=== PATIENT | female | born 1940 | race Caucasian/White ===

== ENCOUNTER 2017-07-15 09:45 | Emergency (ER) | payer BC, SELFPAY ==
[2017-07-15 09:46] VITALS: BP 125/61; PULSE 84; RESP 14; TEMP 36.9; O2SAT 96; BMI 24.5
[2017-07-15 10:19] LABS: Absolute Neutrophil Count 4.1 X10^3/uL (2.0-7.7); Differential Indicated SCAN CRITERIA MET; Eosinophil# 0.36 X10^3/uL; Eosinophils% 6.9 % (0-5); Hematocrit 35.5 % (37-47); Hemoglobin 11.1 g/dl (12.0-15.0); Lymphocyte % 7.7 % (19-41); Mean Corp Hgb Conc 31.3 g/gl (32-36); Mean Corpuscular Hgb 29.8 pg (27.0-32.0); Mean Corpuscular Volume 95.2 fL (81-99); Mean Platelet Vol. 9.3 fl (6.2-12.0); Monocyte# 0.29 X10^3/uL; Monocyte% 5.6 % (0-10); Neutrophil # 4.13 X10^3/uL (2.7-7.7); Neutrophil % 79.8 % (47-70); POSITIVE COUNT NO; POSITIVE DIFFERENTIAL YES; POSITIVE MORPHOLOGY NO; Platelet Count 212 K/mm3 (150-450); RBC Distribution Width CV 14.2 % (11.6-14.6); RBC Distribution Width SD 48.8 fl (35.1-43.9); Red Blood Count 3.73 M/mm3 (4.2-5.4); White Blood Count 5.2 K/mm3 (4.4-11.0)
[2017-07-15 10:24] LABS: Anion Gap 9 (5-15); BUN 20 mg/dL (7-18); Calcium,Total 8.6 mg/dL (8.5-10.1); Chloride 103 mmol/L (98-107); Creatinine, Serum 0.53 mg/dL (0.55-1.02); EST Glomerular Filtration Rate 120 mL/min (>60); Est Glom Filt Rate - Afr Amer 146 mL/min (>60); Estimated Creatinine Clearance 43.07 ml/min; Glucose 100 mg/dL (70-110); Potassium 3.7 mmol/L (3.5-5.1); Sodium Level 136 mmol/L (136-145)
[2017-07-15 10:28] LABS: Differential Comment SCANNED
[2017-07-15 10:32] VITALS: BP 114/52; BP 116/50; BP 119/52; PULSE 76; PULSE 77; PULSE 83
[2017-07-15] MEDS: 0.9% Normal Saline 1,000 ML 1000 ML IV (10:34)
--- NOTE | 2017-07-15 10:42 | ED.VISSUMM ---
- ER Visit Summary Date of Service: 07/15/17 Chief Complaint: [Diarrhea] History of Present Illness: The patient is a 77 F [presents to the emergency department with symptoms of diarrhea that started this morning around 7 AM. Patient states she has had 3-4 watery stools. Patient is from [facility]. Patient denies any abdominal pain or blood in her stool. Patient has not been on antibiotics recently. She denies recent travel. Patient was concerned because she had breast cancer with left mastectomy and had chemotherapy 3 months ago. Patient has a history of hypothyroidism and history of atrial fibrillation however she is not currently on a blood thinner. Patient denies any fevers. She was told at the [facility] that her temperature was 99.2 and it was normal on arrival in the emergency department.] Physical Examination: [HEENT-PERRLA, EOMI. Cranial nerves II through XII grossly intact. TMs clear. Mucous membranes moist. No adenopathy. Cardiovascular-regular rate and rhythm without murmur or ectopy Lungs-clear to auscultation, chest wall stable without crepitus or subcu emphysema Abdomen-normoactive bowel sounds, soft, nontender, no rebound or rigidity, no peritoneal signs. Extremities-intact ?4, normal range of motion, normal pulses, atraumatic] Test Results: [CBC with differential obtained showed a white blood cell count 5.2, hemoglobin 11, hematocrit 35, platelets 212. Chemistries were normal. Orthostatic vital signs were negative. Stool was ordered for C. difficile and enteric pathogens however patient was unable to produce a sample here.] Emergency Department Course and Treatment: [Patient was given a liter normal saline fluid bolus.] Treatment Plan: [I discussed case with Dr. Kc who was covering for Dr. Ky Burkett at the request of the patient. I will also attempt to contact patient's primary care physician to discuss. I feel patient can be safely discharged back to the [facility] living facility. I will write her an outpatient order form to bring in a stool sample for C. difficile and enteric pathogens. Patient will be given a prescription for Imodium.] Disposition: [Discharged to home in stable condition] Impression: [Diarrhea] This note was generated with Promisecation software. It may contain incorrect words, spelling, and punctuation that were not noted in review of the chart prior to signing ED Disposition - Plan for ED Patient: Chief Complaint: Diarrhea Referrals: Tayla Espinal DO [Primary Care Provider] -
--- NOTE | 2017-07-15 10:45 | ED.DCSUM_ITS ---
- ER Visit Summary Date of Service: 07/15/17 Chief Complaint: [Diarrhea] History of Present Illness: The patient is a 77 F [presents to the emergency department with symptoms of diarrhea that started this morning around 7 AM. Patient states she has had 3-4 watery stools. Patient is from [facility]. Patient denies any abdominal pain or blood in her stool. Patient has not been on antibiotics recently. She denies recent travel. Patient was concerned because she had breast cancer with left mastectomy and had chemotherapy 3 months ago. Patient has a history of hypothyroidism and history of atrial fibrillation however she is not currently on a blood thinner. Patient denies any fevers. She was told at the [facility] that her temperature was 99.2 and it was normal on arrival in the emergency department.] Physical Examination: [HEENT-PERRLA, EOMI. Cranial nerves II through XII grossly intact. TMs clear. Mucous membranes moist. No adenopathy. Cardiovascular-regular rate and rhythm without murmur or ectopy Lungs-clear to auscultation, chest wall stable without crepitus or subcu emphysema Abdomen-normoactive bowel sounds, soft, nontender, no rebound or rigidity, no peritoneal signs. Extremities-intact ?4, normal range of motion, normal pulses, atraumatic] Test Results: [CBC with differential obtained showed a white blood cell count 5.2, hemoglobin 11, hematocrit 35, platelets 212. Chemistries were normal. Orthostatic vital signs were negative. Stool was ordered for C. difficile and enteric pathogens however patient was unable to produce a sample here.] Emergency Department Course and Treatment: [Patient was given a liter normal saline fluid bolus.] Treatment Plan: [I discussed case with Dr. Kc who was covering for Dr. Ky Burkett at the request of the patient. I will also attempt to contact patient's primary care physician to discuss. I feel patient can be safely discharged back to the [facility] living facility. I will write her an outpatient order form to bring in a stool sample for C. difficile and enteric pathogens. Patient will be given a prescription for Imodium.] Disposition: [Discharged to home in stable condition] Impression: [Diarrhea] This note was generated with Meridian-IQation software. It may contain incorrect words, spelling, and punctuation that were not noted in review of the chart prior to signing ED Disposition - Plan for ED Patient: Chief Complaint: Diarrhea Referrals: Tayla Espinal DO [Primary Care Provider] -
--- NOTE | 2017-07-15 10:45 | ED.DEP ---
ED Disposition - Plan for ED Patient: Chief Complaint: Diarrhea Instructions: ED Gastroenteritis Report Pend Prescriptions: Loperamide HCl [Imodium A-D] 2 mg PO 4X/DAY PRN PRN #30 tab PRN Reason: Diarrhea Referrals: Tayla Espinal DO [Primary Care Provider] - 3-5 Days
[2017-07-15 12:08] VITALS: BP 105/66; PULSE 72; RESP 16; O2SAT 100
--- NOTE | 2017-07-15 12:09 | ED.RN ---
stool sample sent.
== END 2017-07-15 12:10 | disposition home or self-care (01) ==
LOC: ED 10:14
PROVIDERS: Emergency Provider Emergency Medicine; Family Provider Internal Medicine; PCP Internal Medicine
DX: R19.7 Diarrhea, unspecified (principal); E03.9 Hypothyroidism, unspecified; Z85.3 Personal history of malignant neoplasm of breast; Z79.899 Other long term (current) drug therapy
CPT/HCPCS: 80048; 85025; 87493; 87506; 96360; 96361; 99285; J7030

== ENCOUNTER → 2017-07-31 11:23 | Outpatient (CLI) | payer BC, SELFPAY ==
--- NOTE | 2017-07-31 11:39 | MRI_ITS ---
STUDY: MRI BRAIN WITH AND WITHOUT CONTRAST REASON FOR EXAM: Female, 77 years old. The patient is status post recent mastectomy with known metastatic disease, complaining of right-sided weakness x12 days. TECHNIQUE: Standardized multiplanar fat and water weighted pulse sequences were obtained. 7 ml of Gadavist contrast material was administered intravenously for the contrast portion of the examination. COMPARISON: None. FINDINGS: There is an enhancing intraparenchymal mass lesion within the posterior left frontal lobe measuring 11 x 15 x 13 mm (AP x transverse x craniocaudal). There is extensive surrounding vasogenic edema extending to the cortical ritter-white matter junctions into the posterior lateral horn of the left lateral ventricle. There is mild mass effect with inferior displacement of the left lateral ventricle and with a 3 mm doxa-[id number]-[id number] shift of the septum pellucidum (coronal T2 series 10, image 14). The white matter edema extends to the precentral gyrus of the left frontal lobe (axial T2 series 6, image 20). There are no additional enhancing intracranial lesions. 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 There are a limited number of small white matter hyperintensities, distributed throughout the deep white matter tracts of the cerebral hemispheres, consistent with mild chronic white matter ischemic changes. There is no evidence for recent intracranial ischemia or other cause of cytotoxic edema on diffusion weighted imaging (DWI). Normal T2* images of the brain without demonstrated susceptibility artifact. There is no demonstrated hemosiderin stain. Normal bilateral basal ganglia. Normal thalami. There is no extra-axial fluid accumulation. Normal flow voids within the major intracranial circulation suggesting patency by spin echo criteria. Normal venous enhancement. Normal sella turcica, pituitary gland, infundibular stalk, optic chiasm and hypothalamus. Normal tectal plate and pineal gland. There are chronic white matter ischemic changes of the thong. The midbrain and medulla are otherwise normal. Normal cerebellum. Normal basal cisterns. Normal bilateral temporal bones. Normal bilateral internal auditory canals. 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 Normal visualized paranasal sinuses. Normal calvarium and skull base. Normal visualized soft tissue structures. Normal visualized upper cervical spine. MRI/Brain W/WO Contrast IMPRESSION: 1. 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 2. Mild chronic white matter ischemic changes of the supratentorial brain and thong. 3. 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 4. No acute or evolving ischemic process. Electronically Signed: Glenn Taylor DO at 13:48 EST Tel , Service support ,
--- NOTE | 2017-07-31 16:11 | CHAPLAIN ---
Type of Pastoral Visit ___ Initial Visit ___ Follow-up Visit ___ On-call Visit ___ General Patient Visit ___ Spiritual Assessment ___ Family Conference ___ Bereavement ___ Rapid Response ___ Code Blue _x__ Other (describe below) Pastoral Care Referral From _x__ Patient ___ Family ___ Nurse ___ Physician ___ Forklift Technician ___ Merchant Tailor _x__ Other (describe below) Sacrament/Intervention _x__ Active listening ___ Anointing ___ Caodaism ___ Bereavement ___ Communion ___ Mayra exploration ___ ___ Life review _x__ Prayer ___ Reconciliation ___ Sacrament of Sick _x__ Supportive presence ___ Wedding ___ Other (describe below) Pastoral Comments Slot Shift Supervisor called upon this craft demonstrator to give support for patient; pt was in cafeteria and had expressed anxiety due to urgent decision of DR to do an MRI; pt has had cancer and she is fearful about possibility of cancer spreading; pt is anxious about going through the MRI machine and would like support and prayer; took pt to MRI waiting room where we talked and had prayer; pt has family members that will be with her during this time
== END ==
PROVIDERS: Family Provider Internal Medicine; PCP Internal Medicine; Visit Provider Internal Medicine Hematology & Oncology
DX: C50.812 Malignant neoplasm of overlapping sites of left female breast (principal); Z17.0 Estrogen receptor positive status [ER+]; C78.01 Secondary malignant neoplasm of right lung; G81.91 Hemiplegia, unspecified affecting right dominant side; R22.0 Localized swelling, mass and lump, head
CPT/HCPCS: 70553; A9585

== ENCOUNTER 2017-09-08 13:10 | Observation (INO) | payer BC, SELFPAY ==
[2017-09-08] VITALS (8 sets, daily range): BP systolic 121–144; BP diastolic 50–96; PULSE 91–117; RESP 14–22; TEMP 36.6–37.8; O2SAT 93–98; BMI 25.1; BMI 25.2; BMI 24.7
--- NOTE | 2017-09-08 13:48 | NURSING ---
SISTER CALLED AND NOTIFIED OF PATIENTS ARRIVAL. SISTER REQUESTED A CALL BACK WHEN INTERPRETATION WAS MADE OF D/C OR ADMISSION. ALISTAIR [phone].
--- NOTE | 2017-09-08 14:11 | CT_ITS ---
STUDY: CT ABDOMEN AND PELVIS WITH CONTRAST REASON FOR EXAM: Female, 77 years old. N/V, WEAKNESS, VOMITTING, HX LT BREAST CA RADIATION DOSAGE (If Supplied By Facility): CTDIvol = ( 11.80 ) mGy, DLP = ( 728.53 ) mGycm TECHNIQUE: Transaxial images were obtained from the dome of the diaphragm to the symphysis pubis without oral contrast. 100 ml of Isovue 300 contrast was administered. Sagittal and coronal images were reconstructed. Individualized dose optimization techniques were used for this CT. COMPARISON: None. FINDINGS: The visualized lung bases demonstrate subsegmental atelectasis. The visualized portions of the heart are within normal limits. Multiple decrease attenuation lesions are seen in the liver the largest is in segment #7 measures 1 cm are consistent with benign cysts. Normal gallbladder and extrahepatic biliary system. Normal spleen. Normal pancreas. Normal bilateral adrenal glands. Normal right kidney. Normal left kidney. There is a small hiatal hernia. Normal small intestine. Normal colon. There is non-visualization of the appendix. Normal abdominal aorta. Normal inferior vena cava. Normal retroperitoneum. Normal urinary bladder. Normal abdominal wall. There are diffuse degenerative changes and demineralization of the visualized lumbar spine. CT/Abdomen/Pelvis W IV Cont ONLY IMPRESSION: Multiple decrease attenuation lesions are seen in the liver the largest is in segment #7 measures 1 cm are consistent with benign cysts. Electronically Signed: Terence Calero MD at 15:42 EDT Tel , Service support ,
--- NOTE | 2017-09-08 14:11 | EKG12_ITS ---
Test Reason : VOMITING Blood Pressure : / mmHG Vent. Rate : 087 BPM Atrial Rate : 087 BPM P-R Int : 146 ms QRS Dur : 098 ms QT Int : 372 ms P-R-T Axes : 023 -34 032 degrees QTc Int : 447 ms Normal sinus rhythm Left axis deviation Voltage criteria for left ventricular hypertrophy Abnormal ECG Confirmed by FANI ESTEBAN, RAQUEL ([id number]), social media editor DANIELLE STAHL ([id number]) on 09/12/2017 1:38:18 PM Referred By: MEJIA Confirmed By:RAQUEL MOHR MD
--- NOTE | 2017-09-08 14:20 | NURSING ---
NO LW OR POA
[2017-09-08] MEDS: 0.9% Normal Saline 1,000 ML 125 ML IV (14:23)
[2017-09-08] MEDS: Ondansetron 4 MG/2 ML Vial IV (14:23)
[2017-09-08 14:35] LABS: Absolute Lymphocyte Count 0.49 X10^3/ul (0.83-4.51); Absolute Neutrophil Count 2.1 X10^3/uL (2.0-7.7); Basophil# 0.03 X10^3/uL; Differential Indicated SCAN CRITERIA MET; Eosinophil# 0.01 X10^3/uL; Eosinophils% 0.3 % (0-5); Hematocrit 38.5 % (37-47); Hemoglobin 12.7 g/dl (12.0-15.0); Lymphocyte # 0.49 X10^3/ul (4.0); Lymphocyte % 17.1 % (19-41); Mean Corpuscular Hgb 29.5 pg (27.0-32.0); Mean Corpuscular Volume 89.3 fL (81-99); Mean Platelet Vol. 9.2 fl (6.2-12.0); Monocyte# 0.22 X10^3/uL; Monocyte% 7.7 % (0-10); Neutrophil % 73.6 % (47-70); POSITIVE COUNT NO; POSITIVE DIFFERENTIAL YES; POSITIVE MORPHOLOGY NO; Platelet Count 150 K/mm3 (150-450); RBC Distribution Width SD 48.7 fl (35.1-43.9); Red Blood Count 4.31 M/mm3 (4.2-5.4); White Blood Count 2.9 K/mm3 (4.4-11.0)
--- NOTE | 2017-09-08 14:48 | NURSING ---
PT EXPRESSED CONCERNS ABOUT SELF CARE IF D/C. BUSINESS DEVELOPMENT ASSOCIATE CONSULTED AND IS SPEAKING TO THE PATIENT.
[2017-09-08 14:51] LABS: ALB/GLOB Ratio 0.9 RATIO (0.9-2.4); AST(SGOT) 42 U/L (15-37); Alanine Aminotransfer ALT/SGPT 88 U/L (13-56); Albumin, Serum 3.1 g/dL (3.2-5.0); Alkaline Phosphatase 95 U/L (45-117); Anion Gap 5 (5-15); BUN 14 mg/dL (7-18); BUN/Creat Ratio 26.1 RATIO (10-20); Calcium,Total 9.2 mg/dL (8.5-10.1); Chloride 102 mmol/L (98-107); Creatinine, Serum 0.54 mg/dL (0.55-1.02); EST Glomerular Filtration Rate 117 mL/min (>60); Est Glom Filt Rate - Afr Amer 142 mL/min (>60); Estimated Creatinine Clearance 39.59 ml/min; Globulin 3.3 g/dL (2.2-4.2); Glucose 106 mg/dL (74-106); Lipase 389 U/L (73-393); Potassium 3.6 mmol/L (3.5-5.1); Protein, Total 6.4 g/dL (6.4-8.2); Sodium Level 138 mmol/L (136-145)
--- NOTE | 2017-09-08 14:54 | CM.ED ---
Addendum entered by Adilene Stauffer 09/08/17 17:21: Martha called back and states she is not able to provide care for patient at home, this weekend, and does not have any available referral. Original Note: ED CM Assessment: Patient states she is concerned to go home and be alone tonight. Patient states she gets lonely and cries due to depression, when she is alone. Patient states she has a private-pay STUDIO SET UP WORKER, named Martha, who provides assistance with bathing and groceries. Martha is unable to be with patient again until Monday. Patient states she has sisters who live in [facility], but that they are unable to come down to be with her. Her brother is on a cruise. Patient states she was diagnosed with breast cancer in December. Patient states she ambulates without assistance and does still drive. She attends physical therapy at [facility]. I discussed [facility] with the patient and she was eager to hear more. Call placed to director, Nick, who states he will call the patient Monday of next week. Patient was informed and given a brochure for behavioral health. She is agreeable with this plan. Call placed to Martha, private STUDIO SET UP WORKER, to inquire if she has any referral sources who could stay with the patient through the weekend. Voicemail left for Martha and awaiting return call. I did inform the patient of this and that I may not hear back from her. Patient verbalizes appreciation of this. Care team updated.
[2017-09-08] MEDS: proMETHazine 25 MG/ML Syringe 6.25 MG IV (15:38)
[2017-09-08 15:59] LABS: Bacteria 0 SEEN /hpf (None Seen); Mucous, Urine 0 SEEN /hpf (<or=2+); Red Blood Cells-Urine 0 SEEN /hpf (0-5); White Blood Cells 0 SEEN /hpf (0-5)
[2017-09-08 16:01] LABS: Color, Urine Straw (Yellow); Glucose, Dipstick Normal (Normal); Ketone-Dipstick Negative (Negative); Leukocyte Esterase-Dipstick Negative /ul (Negative); Nitrite-Dipstick Negative (Negative); Occult Blood-Urine Negative /ul (Negative); Protein-Dipstick Negative (Negative); Urine Bilirubin Dipstick Negative (Negative); Urine Clarity Clear (Clear); Urine Urobilinogen Normal (Normal)
[2017-09-08 16:16] LABS: Squamous Epithelial Cells - UA 0-5 SEEN /hpf (5-10); Transitional Epithelial - Ur 0-5 SEEN /hpf (0-5)
--- NOTE | 2017-09-08 16:27 | CT_ITS ---
STUDY: CT BRAIN WITHOUT CONTRAST REASON FOR EXAM: Female, 77 years old. Alteration of awareness RADIATION DOSAGE (If Supplied By Facility): CTDIvol = ( 44.99 ) mGy, DLP = ( 796.11 ) mGycm TECHNIQUE: Transaxial CT imaging of the brain was performed without administration of intravenous contrast material. Individualized dose optimization techniques were used for this CT. COMPARISON: Brain MRI dated July 31, 2017 FINDINGS: The soft tissues are unremarkable. The osseous structures are unremarkable. Normal size ventricles and extra-axial spaces for the patient's age. The white matter tracts are unremarkable. The basal ganglia and thalami are unremarkable. No abnormalities are seen in the brainstem. The cerebellum is unremarkable. There is subtle hypodensity in the left frontal lobe. There is no intracranial hemorrhage. There are no findings of acute ischemia. The visualized sinuses are unremarkable. CT/Brain/Head without Contrast IMPRESSION: No acute intracranial abnormalities. There is no acute hemorrhage. There is subtle hypodensity in the left frontal lobe corresponding in location to the known metastatic lesion seen on the prior MRI. Electronically Signed: Nasrin Orta MD at 17:11 EDT Tel Direct: [phone], Service support ,
--- NOTE | 2017-09-08 16:30 | ED.VISSUMM ---
- ER Visit Summary Date of Service: 09/08/17 Chief Complaint: Nausea and vomiting History of Present Illness: The patient is a 77 F with nausea and vomiting that started yesterday. She also feels tired. She does not have any abdominal pain. She is having normal bowel movements. Denies fever or urinary symptoms. Denies anything like this in the past. She has a history of breast cancer. Her last chemotherapy treatment was in April. She had a mastectomy in June and no issues since then. Physical Examination: Vital signs unremarkable. Patient alert and oriented. No acute distress. She has a depressed mood and flat affect. Heart regular. Lungs clear. Abdomen soft and nontender. No masses or distention. Skin appears normal in color without jaundice or pallor. Test Results: EKG shows sinus rhythm at a rate of 87. No acute changes, infarction, or ischemia. White count 2.9. Liver enzymes slightly elevated. Lipase normal. Urinalysis normal. Troponin normal. CT shows liver lesions which are likely benign cysts. No visualization of the appendix. Emergency Department Course and Treatment: Patient received fluids and nausea medicine. I reassessed her and wanted to talk to her about her results. The patient was laying naked in the bed and pulling out her IV. She thought it was 1972. She was clearly delirious. I was able to redirect her and make her more comfortable by sitting her up in bed. We will check a head CT and a chest x-ray. The patient will need hospitalization. Results are still pending. The oncoming doctor will check. Treatment Plan: As above Disposition: Admission Impression: 1. Nausea and vomiting 2. Delirium This note was generated with Crystal Clear Vision dictation software. It may contain incorrect words, spelling, and punctuation that were not noted in review of the chart prior to signing ED Disposition - Plan for ED Patient: Chief Complaint: Nausea/Vomiting Referrals: Tayla Espinal DO [Primary Care Provider] -
--- NOTE | 2017-09-08 16:37 | ED.DCSUM_ITS ---
- ER Visit Summary Date of Service: 09/08/17 Chief Complaint: Nausea and vomiting History of Present Illness: The patient is a 77 F with nausea and vomiting that started yesterday. She also feels tired. She does not have any abdominal pain. She is having normal bowel movements. Denies fever or urinary symptoms. Denies anything like this in the past. She has a history of breast cancer. Her last chemotherapy treatment was in April. She had a mastectomy in June and no issues since then. Physical Examination: Vital signs unremarkable. Patient alert and oriented. No acute distress. She has a depressed mood and flat affect. Heart regular. Lungs clear. Abdomen soft and nontender. No masses or distention. Skin appears normal in color without jaundice or pallor. Test Results: EKG shows sinus rhythm at a rate of 87. No acute changes, infarction, or ischemia. White count 2.9. Liver enzymes slightly elevated. Lipase normal. Urinalysis normal. Troponin normal. CT shows liver lesions which are likely benign cysts. No visualization of the appendix. Emergency Department Course and Treatment: Patient received fluids and nausea medicine. I reassessed her and wanted to talk to her about her results. The patient was laying naked in the bed and pulling out her IV. She thought it was 1972. She was clearly delirious. I was able to redirect her and make her more comfortable by sitting her up in bed. We will check a head CT and a chest x- ray. The patient will need hospitalization. Results are still pending. The oncoming doctor will check. Treatment Plan: As above Disposition: Admission Impression: 1. Nausea and vomiting 2. Delirium This note was generated with Navmii dictation software. It may contain incorrect words, spelling, and punctuation that were not noted in review of the chart prior to signing ED Disposition - Plan for ED Patient: Chief Complaint: Nausea/Vomiting Referrals: Tayla Espinal DO [Primary Care Provider] -
--- NOTE | 2017-09-08 16:40 | RAD_ITS ---
STUDY: X-RAY CHEST REASON FOR EXAM: Female, 77 years old. Alteration of awareness TECHNIQUE: A single frontal view of the chest was obtained. COMPARISON: Chest CT dated January 10, 2017 FINDINGS: The lungs are underaerated. There are minimal increased markings in both lung bases. There is no demonstrated pleural abnormality. The cardiac silhouette is normal in size. The mediastinum and hilar regions are unremarkable. Normal visualized pulmonary arteries. There is atherosclerotic tortuosity of the thoracic aorta. There are diffuse degenerative changes of the visualized spine. The visualized ribs, clavicles, and shoulders are unremarkable. There are surgical clips in the left axilla. RAD/Chest 1 View (Portable) IMPRESSION: No acute cardiopulmonary abnormalities. There is minimal bibasilar atelectasis. Electronically Signed: Nasrin Orta MD at 17:17 EDT Tel Direct: [phone], Service support ,
--- NOTE | 2017-09-08 16:46 | NURSING ---
DR HERMINIA BA
--- NOTE | 2017-09-08 16:58 | ED.RN ---
PT BEGAN PRESENTING WITH ACUTE CONFUSION. ALERT TO SELF AND INTERMITTENTLY PLACE, UNSURE OF MONTH OR YEAR. PT INCONTINENT OF URINE x2, FOUND UP WALKING IN [place] LIFTING GOWN, UNSURE OF SURROUNDINGS. POOR SHORT TERM MEMORY. ADVISED DR BA, CT SCAN OF BRAIN ORDERED.
--- NOTE | 2017-09-08 18:07 | PCM.HP.STD ---
Problem List (1) Gastroenteritis Status: Acute (2) Medication adverse effect Status: Acute (3) Status post gamma knife treatment Status: Chronic Comment: 08/14/2017 (4) History of modified radical mastectomy of left breast Status: Chronic Comment: 06/22/2017 (5) Left breast mass Status: Chronic (6) Hypothyroidism Status: Chronic (7) History of atrial fibrillation Status: Chronic History of Present Illness Date of Admission: 09/08/17 Chief Complaint: vomiting and diarrhea The patient is a 77 year old F who presented to the ER with nausea vomiting and diarrhea. She was given zofran and phenergan and became very confused. She is resting in bed in no acute distress but is answering some questions inappropriately. She cannot get the day, date, or month right, but knows where she is and why. She thinks she was brought here yesterday by a friend. She knows she came here because she has had many episodes of vomiting and diarrhea. 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 She is a patient of Dr. Burkett and had surgery in June and last chemo in April. She lives at home by herself. She has no abdominal pain. Hx is limited as the patient is confused and answers some questions completely inappropriately and others seemingly fine. [] Past Medical History Past Medical History (Chronic Problems): Chronic Problems (Last Reviewed 08/23/17 @ 10:28 by Sharon Jaramillo) Status post gamma knife treatment (Chronic) 08/14/2017 History of modified radical mastectomy of left breast (Chronic) 06/22/2017 Left breast mass (Chronic) Hypothyroidism (Chronic) History of pericardial effusion (Chronic) Status post pericardiocentesis. History of viral pericarditis (Chronic) History of atrial fibrillation (Chronic) Allergies shellfish derived Allergy (Verified 09/08/17 13:13) Hives tetracycline [Tetracycline] Allergy (Verified 09/08/17 17:11) pt unsure alcohol Adverse Reaction (Verified 09/08/17 13:13) Unknown Home Medications: Ambulatory Orders Medication Instructions Recorded Lorazepam [Ativan] 0.25 mg PO TID PRN PRN 07/14/13 Metoprolol Tartrate [Lopressor 50 mg PO BIDCM 07/14/13 (beta mike)] Levothyroxine [Synthroid] 125 mcg PO DAILY 06/15/17 Ondansetron [Zofran Odt] 8 mg PO Q8H PRN PRN 07/15/17 Acetaminophen [Tylenol Tablet] 325 mg PO Q6H PRN PRN 09/08/17 Surgical History: - - History of pericardiocentesis, left mastectomy, gamma knife Psychiatric History: Anxiety 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 ASSISTANT FOOD SERVICE MANAGER history Lives: Alone Smoking Status: Former smoker Tobacco Use: Non-smoker Alcohol: None Drugs: None - *Family History Maternal History Items: No pertinent history Paternal History Items: No pertinent history Review of Systems Unable to obtain accurate/complete ROS d/t: patient confused VTE Information - Inpt Only VTE Present on Admission: No VTE Mechan Device Prophylaxis: SCD's VTE Pharm Prophylaxis ordered?: Yes Patient Problems: Active and Suspected Problems (Last Reviewed 08/23/17 @ 10:28 by Sharon Jaramillo) Gastroenteritis (Acute) Medication adverse effect (Acute) - Physical Exam General: Alert, Oriented x3, Cooperative HEENT: Atraumatic, PERRLA, EOMI, Normocephalic Neck: Supple, No JVD, Negative Carotid Bruits Lungs: Clear to auscultation, Normal air movement Cardiovascular: Regular rate, No murmurs Abdomen: Bowel Sounds Present, Soft, Non Tender Extremities: No edema, Capillary Refill Less than 3 Seconds Skin: No rashes, No breakdown Musculoskeletal: No Tenderness to Palpation of Joints or Extremities Neurological: Cranial nerves II-XII grossly intact Psych/Mental Status: Normal Affect, Appropriate Vital Signs Temp Pulse Resp BP Pulse Ox 97.8 F 112 H 16 144/61 H 93 09/08/17 13:11 09/08/17 17:15 09/08/17 17:15 09/08/17 17:15 09/08/17 17:15 Oxygen Delivery Method Room Air Weight: 64.41 kg Body Mass Index (BMI) 25.1 Laboratory Tests Past 24 Hrs 09/08/17 09/08/17 09/08/17 14:20 14:20 15:50 WBC 2.9 L RBC 4.31 Hgb 12.7 Hct 38.5 MCV 89.3 MCH 29.5 MCHC 33.0 RDW 15.0 H RDW Differential 48.7 H Plt Count 150 MPV 9.2 Immature Gran % (Auto) 0.300 Neut % (Auto) 73.6 H Lymph % (Auto) 17.1 L [place] % (Auto) 7.7 Eos % (Auto) 0.3 Baso % (Auto) 1.0 Absolute Neuts (auto) 2.1 Absolute Lymphs (auto) 0.49 L Total Counted Not Reportable Diff Path Review October Sodium 138 Potassium 3.6 Chloride 102 Carbon Dioxide 31.0 Anion Gap 5 BUN 14 Creatinine 0.54 L Estim Creat Clear Calc 39.59 Est GFR (MDRD) Af Amer 142 Est GFR (MDRD) Non-Af 117 BUN/Creatinine Ratio 26.1 H Glucose 106 Calcium 9.2 Total Bilirubin 0.40 AST 42 H ALT 88 H Alkaline Phosphatase 95 Troponin I < 0.02 Total Protein 6.4 Albumin 3.1 L Globulin 3.3 Albumin/Globulin Ratio 0.9 Lipase 389 Urine Color Straw Urine Clarity Clear Urine pH 7.0 Ur Specific [place] 1.010 Urine Protein Negative Urine Glucose (UA) Normal Urine Ketones Negative Urine Occult Blood Negative Urine Nitrite Negative Urine Bilirubin Negative Urine Urobilinogen Normal Ur Leukocyte Esterase Negative Urine RBC 0 SEEN Urine WBC 0 SEEN Ur Squamous Epith Cells 0-5 SEEN Ur Transition Epith Cell 0-5 SEEN Urine Bacteria 0 SEEN Urine Mucus 0 SEEN Assessment/Plan Active and Suspected Problems (Last Reviewed 08/23/17 @ 10:28 by Sharon Jaramillo) Gastroenteritis (Acute) Medication adverse effect (Acute) 1. Acute gastroenteritis - suspect viral - continue supportive care with IV fluids and PRN medications, avoid phenergan as it likely triggered the confusion. Unlikely to have been zofran as she takes that at home. She has a low WBC count, and she is afebrile.Lipase neg. Trop neg. AST ALT somewhat high. T bili normal. CT abdomen pelvis with benign liver cysts. She had gastroenteritis in June and was positive for norovirus at that time. CXR neg. 2. Adverse medication reaction - confusion - likely 2/2 phenergan. As she had a hx of brain mets if she remains confused tomorrow may need to have an MRI of the brain to look for new mets. CT brain shows hypodensity c/w prior known metastatic lesion on prior MRI. 3. Hx left breast cancer with brain mets - Pt of Dr. Burkett, s/p left radical mastectomy June, chemo last April. 4. Hx AF - in NSR. On metoprolol. She missed her metoprolol today. 5. Hypothyroidism - continue synthroid. DVT ppx: lovenox This patient was seen by Andrew Baugh PA-C under the supervision of Doctor Mcgowan.
--- NOTE | 2017-09-08 18:16 | NURSING ---
206 OBS ENCEPHALOPATHY TERELETSKY
[2017-09-08] MEDS: Acetaminophen 325 MG Tablet PO (21:08)
[2017-09-09] VITALS (9 sets, daily range): BP systolic 114–127; BP diastolic 47–61; PULSE 71–93; RESP 16–18; TEMP 36.8–37.4; O2SAT 95–98
[2017-09-09] MEDS: 0.9% Normal Saline 1,000 ML 125 ML IV ×2 (01:36→09:18)
[2017-09-09] MEDS: Levothyroxine 125 MCG Tablet PO (05:22)
[2017-09-09 06:31] LABS: Absolute Lymphocyte Count 1.01 X10^3/ul (0.83-4.51); Absolute Neutrophil Count 1.5 X10^3/uL (2.0-7.7); Basophil# 0.01 X10^3/uL; Basophil% 0.3 % (0-1); Eosinophil# 0.01 X10^3/uL; Eosinophils% 0.3 % (0-5); Hematocrit 30.8 % (37-47); Lymphocyte # 1.01 X10^3/ul (4.0); Lymphocyte % 34.6 % (19-41); Mean Corp Hgb Conc 32.5 g/gl (32-36); Mean Corpuscular Hgb 29.2 pg (27.0-32.0); Mean Corpuscular Volume 89.8 fL (81-99); Monocyte% 13.7 % (0-10); Neutrophil # 1.47 X10^3/uL (2.7-7.7); Neutrophil % 50.4 % (47-70); Platelet Count 131 K/mm3 (150-450); RBC Distribution Width CV 15.2 % (11.6-14.6); RBC Distribution Width SD 48.6 fl (35.1-43.9); Red Blood Count 3.43 M/mm3 (4.2-5.4); White Blood Count 2.9 K/mm3 (4.4-11.0)
[2017-09-09 06:32] LABS: POSITIVE COUNT NO; POSITIVE DIFFERENTIAL NO; POSITIVE MORPHOLOGY NO
[2017-09-09 06:58] LABS: Anion Gap 7 (5-15); BUN 12 mg/dL (7-18); BUN/Creat Ratio 35.5 RATIO (10-20); Calcium,Total 8.2 mg/dL (8.5-10.1); Chloride 106 mmol/L (98-107); Creatinine, Serum 0.34 mg/dL (0.55-1.02); EST Glomerular Filtration Rate 200 mL/min (>60); Est Glom Filt Rate - Afr Amer 242 mL/min (>60); Estimated Creatinine Clearance 39.59 ml/min; Glucose 81 mg/dL (74-106); Potassium 3.6 mmol/L (3.5-5.1); Sodium Level 138 mmol/L (136-145)
[2017-09-09] MEDS: Metoprolol Tartrate 50 MG Tablet PO ×2 (09:03→17:21)
[2017-09-09] MEDS: Ondansetron 4 MG/2 ML Vial IV ×2 (09:29→16:41)
--- NOTE | 2017-09-09 09:45 | PN_ITS ---
Patient Problems: Active and Suspected Problems (Last Reviewed 08/23/17 @ 10:28 by Sharon Jaramillo) Gastroenteritis (Acute) Medication adverse effect (Acute) Subjective: CC: Nausea , vomiting and confusion Objective: Her Symptoms have improved, she is not alert and oriented to time place and person. No acute events reported overnight. Vitals/I&O's: Vital Signs Temp Pulse Resp BP Pulse Ox 98.3 F 81 18 121/48 H 96 09/09/17 08:00 09/09/17 09:03 09/09/17 08:00 09/09/17 08:00 09/09/17 08:00 Oxygen Delivery Method Room Air Weight: 63.4 kg Body Mass Index (BMI) 24.7 Intake and Output for Last 24 Hours 09/07/17 09/08/17 09/09/17 23:59 23:59 23:59 Intake Total 618 / 618 982 / 982 Balance 618 / 618 982 / 982 General: Alert, Oriented x3 HEENT: Atraumatic Neck: Supple, No JVD Lungs: Clear to auscultation, No wheeze Cardiovascular: Regular rate, Regular Rhythm, Normal S1, Normal S2 Abdomen: Bowel Sounds Present, Soft, Non Tender Extremities: No edema Laboratory Results 09/09/17 06:10: WBC 2.9 L, RBC 3.43 L, Hgb 10.0 L, Hct 30.8 L, MCV 89.8, MCH 29.2, MCHC 32.5, RDW 15.2 H, RDW Differential 48.6 H, Plt Count 131 L, MPV 9.0, Immature Gran % (Auto) 0.700, Neut % (Auto) 50.4, Lymph % (Auto) 34.6, [place] % ( Auto) 13.7 H, Eos % (Auto) 0.3, Baso % (Auto) 0.3, Absolute Neuts (auto) 1.5 L, Absolute Lymphs (auto) 1.01, Total Counted Not Reportable 09/09/17 06:10: Sodium 138, Potassium 3.6, Chloride 106, Carbon Dioxide 25.0, Anion Gap 7, BUN 12, Creatinine 0.34 L, Estim Creat Clear Calc 39.59, Est GFR ( MDRD) Af Amer 242, Est GFR (MDRD) Non-Af 200, BUN/Creatinine Ratio 35.5 H, Glucose 81, Calcium 8.2 L Current Medications Acetaminophen (Tylenol) 325 mg PO Q6H PRN PRN PRN Reason: Mild Pain (scale 0-3)/T>100.7 Last Admin: 09/08/17 21:08 Dose: 325 mg Heparin Sodium (Porcine) (Heparin Na) 5,000 unit SC Q8 [facility] Last Admin: 09/09/17 05:22 Dose: 5,000 u Sodium Chloride () 1,000 mls @ 125 mls/hr IV .Q8H [facility] Last Admin: 09/09/17 09:18 Dose: 125 mls/hr Levothyroxine Sodium (Synthroid) 125 mcg PO DAILY@0600 [facility] Last Admin: 09/09/17 05:22 Dose: 125 mcg Lorazepam (Ativan) 0.25 mg PO TID PRN PRN PRN Reason: ANXIETY Magnesium Hydroxide (Milk Of Magnesia) 30 ml PO DAILY PRN PRN PRN Reason: Constipation Metoprolol Tartrate (Lopressor (Beta Giovani)) 50 mg PO BIDCM [facility] Last Admin: 09/09/17 09:03 Dose: 50 mg Nutritional Formula (Lactose Free) (Ensure Enlive) 120 ml PO 4X/DAY [facility] Last Admin: 09/08/17 21:08 Dose: 120 ml Ondansetron HCl (Zofran) 4 mg IV Q6H PRN PRN PRN Reason: NAUSEA Last Admin: 09/09/17 09:29 Dose: 4 mg Sodium Chloride () 5 - 30 ml IV UD PRN PRN Reason: SALINE FLUSH Medical Necessity - Tobacco Use Smoking Status: Former smoker Tobacco Use: Non-smoker Assessment/Plan Active and Suspected Problems (Last Reviewed 08/23/17 @ 10:28 by Sharon Jaramillo) Gastroenteritis (Acute) Medication adverse effect (Acute) 1. Acute gastroenteritis ; improved. 2. acute Encephalopathy; improved, she is now alert and oriented to time place and person. 3. Dehydration ; we will continue gentle IV hydration. 4. Paroxysmal atrial fibrillation; she is in sinus, we will continue her Metoprolol 5. Hypothyroidism - continue Synthroid 6. Oropharyngeal candidiasis; we will start her on Diflucan p.o. 7. generalized weakness PT/OT. 8. History left breast cancer with brain mets status post gamma knife radiation 9. DVT ppx with SC heparin.
[2017-09-09] MEDS: Fluconazole 100 MG Tablet PO (10:37)
--- NOTE | 2017-09-09 12:17 | CASEMGMT ---
Patient sitting up in bed, smiles and says alex. Patient recalls our conversation yesterday. I informed her that I did hear back from private PATRIC Thomas. Martha had mentioned that the patient typically sends her home after a half hour of care and does not give much notice prior to requesting assistance. I discussed this with the patient and provided her with a list of private pay aide services and contact information. Patient states understanding and thanks . I reminded the patient that she will be receiving a call from Nick, with [facility], on Monday. Patient states understanding and agreement.
[2017-09-09] MEDS: LORazepam 0.5 MG Tablet 0.25 MG PO ×2 (14:11→21:30)
[2017-09-09] MEDS: 0.9% NaCl Peripheral Flush Adult/Peds IV (16:41)
[2017-09-09] MEDS: 0.9% Normal Saline 1,000 ML 75 ML IV (17:30)
[2017-09-10] VITALS: PULSE 72
[2017-09-10 02:53] VITALS: BP 113/50; PULSE 71; RESP 18; TEMP 36.7; O2SAT 96
[2017-09-10 05:02] VITALS: PULSE 66
[2017-09-10] MEDS: 0.9% Normal Saline 1,000 ML 75 ML IV (06:20)
[2017-09-10] MEDS: Levothyroxine 125 MCG Tablet 250 MCG PO (06:20)
[2017-09-10] MEDS: Ondansetron 4 MG/2 ML Vial IV (06:59)
[2017-09-10 07:32] VITALS: BP 127/76; PULSE 83; RESP 16; TEMP 36.6; O2SAT 96
[2017-09-10 08:13] VITALS: PULSE 83; PULSE 86
[2017-09-10] MEDS: Metoprolol Tartrate 50 MG Tablet PO (08:13)
--- NOTE | 2017-09-10 08:56 | PCA ---
therapy ambulating pt in [place]
--- NOTE | 2017-09-10 09:39 | PCM.DC ---
- Discharge Diagnoses Current Active Problems: Current Active and Chronic Problems (Last Reviewed 08/23/17 @ 10:28 by Sharon Jaramillo) Gastroenteritis (Acute) Medication adverse effect (Acute) You will use the following diet at home:: Regular Discharge Activity: Return to Normal Activity Allergies/Adverse Reactions: Allergies shellfish derived Allergy (Verified 09/08/17 13:13) Hives tetracycline [Tetracycline] Allergy (Verified 09/08/17 17:11) pt unsure alcohol Adverse Reaction (Verified 09/08/17 13:13) Unknown promethazine [From Phenergan] Adverse Reaction (Verified 09/10/17 01:08) Other CONFUSION Medications to take at Discharge Lorazepam [Ativan] 0.25 mg PO TID PRN PRN 07/14/13 Metoprolol Tartrate [Lopressor (beta mike)] 50 mg PO BIDCM 07/14/13 Levothyroxine [Synthroid] 250 mcg PO QWEEK 06/15/17 Ondansetron [Zofran Odt] 8 mg PO Q8H PRN PRN 07/15/17 Acetaminophen [Tylenol Tablet] 325 mg PO Q6H PRN PRN 09/08/17 Fluconazole [Diflucan] 100 mg PO DAILY #10 tab 09/10/17 Levothyroxine [Synthroid] 125 mcg PO DAILY 09/10/17 Ondansetron [Zofran Odt] 4 mg PO Q8H PRN PRN #20 tab 09/10/17 The following prescriptions were given: Ondansetron [Zofran Odt] 4 mg PO Q8H PRN PRN #20 tab PRN Reason: Nausea/Vomiting Fluconazole [Diflucan] 100 mg PO DAILY #10 tab Primary Care Physician: Tayla Espinal DO [Primary Care Provider] - In 1 Week Proposed Discharge Date: 09/10/17
--- NOTE | 2017-09-10 09:43 | DS.PCM_ITS ---
Discharge Date and Diagnosis - Problem List Patient Problems: Active and Suspected Problems (Last Reviewed 08/23/17 @ 10:28 by Sharon Jaramillo) Gastroenteritis (Acute) Medication adverse effect (Acute) Date of Admission: 09/08/17 Date of Discharge: 09/10/17 - Primary Discharge Diagnosis Active and Suspected Problems (Last Reviewed 08/23/17 @ 10:28 by Sharon Jaramillo) Gastroenteritis (Acute) Medication adverse effect (Acute) - Secondary Discharge Diagnosis Chronic Problems (Last Reviewed 08/23/17 @ 10:28 by Sharon Jaramillo) Status post gamma knife treatment (Chronic) 08/14/2017 History of modified radical mastectomy of left breast (Chronic) 06/22/2017 Left breast mass (Chronic) Hypothyroidism (Chronic) History of pericardial effusion (Chronic) Status post pericardiocentesis. History of viral pericarditis (Chronic) History of atrial fibrillation (Chronic) Hospital Course and Treatment Operations: - Summary of Care Provided: This is a 77 year old F 2 of breast cancer with metastasis to the brain status post gamma knife radiation, she w presented to the ER with nausea vomiting and diarrhea. She was given zofran and phenergan and became very confused. The patient was felt to have acute gastroenteritis and dehydration and then admitted to the hospital for IV hydration and anti-emetics she cannot tolerate regular diet. 1. Acute gastroenteritis ; improved. 2. acute Encephalopathy; improved, she is now alert and oriented to time place and person. 3. Dehydration ; well hydrated now. 4. Paroxysmal atrial fibrillation; she is in sinus, we will continue her Metoprolol 5. Hypothyroidism ; she will continue her Synthroid 6. Oropharyngeal candidiasis; started on on Diflucan p.o. 7. generalized weakness PT/OT. 8. History left breast cancer with brain mets status post gamma knife radiation , f/u Dr. Burkett. Discharge Diet: No Restrictions Discharge Activity: Return to Normal Activity Home Medications: Medications to take at Discharge Lorazepam [Ativan] 0.25 mg PO TID PRN PRN 07/14/13 Metoprolol Tartrate [Lopressor (beta mike)] 50 mg PO BIDCM 07/14/13 Levothyroxine [Synthroid] 250 mcg PO QWEEK 06/15/17 Ondansetron [Zofran Odt] 8 mg PO Q8H PRN PRN 07/15/17 Acetaminophen [Tylenol Tablet] 325 mg PO Q6H PRN PRN 09/08/17 Fluconazole [Diflucan] 100 mg PO DAILY #10 tab 09/10/17 Levothyroxine [Synthroid] 125 mcg PO DAILY 09/10/17 Ondansetron [Zofran Odt] 4 mg PO Q8H PRN PRN #20 tab 09/10/17 Following Prescrptions Were Given to Patient: Ondansetron [Zofran Odt] 4 mg PO Q8H PRN PRN #20 tab PRN Reason: Nausea/Vomiting Fluconazole [Diflucan] 100 mg PO DAILY #10 tab Primary Care Physician: Tayla Espinal DO [Primary Care Provider] - In 1 Week Disposition: Home Patient Condition:: Good Medical Necessity - Tobacco Use Smoking Status: Former smoker Tobacco Use: Non-smoker Meaningful Use Info Meaningful Use Diagnoses (Choose all that apply): None applicable
[2017-09-10] MEDS: Fluconazole 100 MG Tablet PO (10:13)
[2017-09-10 13:19] VITALS: BP 113/59; PULSE 79; RESP 16; TEMP 36.6; O2SAT 94
--- NOTE | 2017-09-10 13:38 | NURSING ---
patient had no nausea this afternoon- no zofran needed. prescriptions (diflucan and zofran) education provided. Patient given list of medications with last dose written beside each med. Denied further questions.
[2017-09-11 13:44] LABS: Pathologist Review Reviewed
== END 2017-09-10 13:50 | disposition home or self-care (01) ==
LOC: ED 17:28 → MS2 18:17
PROVIDERS: Emergency Medicine; Admitting Provider Internal Medicine; Emergency Provider Emergency Medicine; Family Provider Internal Medicine; PCP Internal Medicine; Visit Provider Internal Medicine
DX: K52.9 Noninfective gastroenteritis and colitis, unspecified (principal); G93.40 Encephalopathy, unspecified; E03.9 Hypothyroidism, unspecified; C79.31 Secondary malignant neoplasm of brain; F41.9 Anxiety disorder, unspecified; R41.0 Disorientation, unspecified; T50.905A Adverse effect of unspecified drugs, medicaments and biological substances, initial encounter; I48.0 Paroxysmal atrial fibrillation; B37.0 Candidal stomatitis; E86.0 Dehydration; Z79.899 Other long term (current) drug therapy; Z85.3 Personal history of malignant neoplasm of breast; Z92.21 Personal history of antineoplastic chemotherapy; Z87.891 Personal history of nicotine dependence
CPT/HCPCS: 70450; 71045; 74177; 80048; 80053; 81001; 83690; 84484; 85025; 93005; 96361; 96372; 96374; 96375; 96376; 97116; 97161; 97166; 97802; 99218; 99282; J7030; Q9967; A4216; G0378; J2405

== ENCOUNTER 2017-10-25 10:00 | Outpatient (RCR) | payer BC, SELFPAY ==
--- NOTE | 2017-07-24 10:27 | HP.PTEVAL ---
Patient's Visit Information JORGE LUIS BARRERA is a 77 year old F referred to Physical Therapy by Stacey GARCIA with a diagnosis of Left Breast Cancer. Date of Evaluation: 07/24/17 Physical Therapist: Amelie Rodriguez - Visit Plan Frequency: 2x /Week Duration: 6 Weeks Plan: Focus on LE and core s/s and functional mobility. - Subjective Subjective: January 10, 2017 found a tumor which started bleeding - went to ER- admitted for [address] Paredes and Dr. Merritt. Sent her to [place]- which she lived in until Monday. Chemo 8x- CT scans- mets on the right lower lobe of the lung- Chest wall, fascia, muscle of the chest. Will have another scan at [facility] next monday. Does not have to have radiation. June 22 masectomy left breast. Sees Dr. Hahn every 2 weeks. Moved home July 19- hard to not be around people a lot. Was given exercises after surgery. Sees Dr. Espinal this afternoon. She has very little pain. But does have some knee problems and weakness/fatigue. Goals are to get stronger- is doing more but is tired. - Objective Posture: FH, RS, Increased kyphosis. Gait: slightly antalgic- decreased stance on the left LE with. SLS: unable to SLS but will weight shift. HR/TR: able. ROM: WFL. Strength: Ankle: 4+/5, Knee: 4/5, Hip: 4/5 Core: poor - Goals Goal 1:: Patient will be I with HEP and progression Goal Time Frame: 4-6 Weeks Goal 2:: Patient will ambulate >800 feet with no SOB to demonstrate increased endurance Goal Time Frame: 4-6 Weeks Goal 3:: Patinet will demo 4+/5 strength in LE where deficit Goal Time Frame: 4-6 Weeks Goal 4:: Patient will maintain proper posture t/o tx session to demo increased core s/s. Goal Time Frame: 4-6 Weeks - Rehabilitation Potential Physical Therapy Diagnosis: Patient presents with hypomobility- she has decreased strength and muscular endurance s/p cancer diagnosis with masectomy and chemotherapy leading to inability to perform normal ADl's Rehabilitation Potential: Fair - Anticipated Interventions Patient/Client Instruction: Educate patient on: Benefits of Fitness Program For the Purpose of:: To increase tolerance to activity/condition/position Therapeutic Exercise to Include: Strength training, Endurance training, Body mechanics, Postural training, Dynamic Lumbar Stabilization, Scapular Strength/Stabilization For the Purpose of:: To improve muscle performance and motor function TENS: No Cryotherapy (ice pack, ice massage): Yes Thermo therapy (hot pack): Yes Ultrasound (thermal/non thermal): No For the Purpose of:: To decrease pain Thank you for the opportunity to evaluate your patient. For Medicare and Medicare HMO plans, please review the plan of care and approve it. It will need to be FAXED BACK to us at [phone] for Medicare purposes. Please let me know if there are questions or concerns regarding this plan of care. Physician Signature: Date:
--- NOTE | 2017-10-03 15:37 | HP.OTEVAL ---
Patient's Visit Information JORGE LUIS BARRERA is a 77 year old F, referred to Occupational Therapy by Stacey Pizano, with a diagnosis of Masectomy. Date of Evaluation: 10/03/17 Occupational Therapist: Stephanie Schilling, OTChino/Lu, CHT - Subjective Subjective: Pt states she arrives to OT following a Masectomy 1--18, 11 nodes removal. ANC chemo- for 4 session in jan 2017 every 2 weeks-. 2 week break follow with 4 weeks more chemo - last chemo May 17, 2017 while tumor decreased in size- and then removal completed in Jun. Pt stated she does have swelling in her brain- steriods for 10 days and had gamma knife- and then had the step down with steriods - pt will have another MRI two days from now as follow up from her gamma knife procedure. - ROM Shoulder: Right WNL left shoulder 100 Elbow: Right WNL left limited due to hx fx Forearm: Right/Left WNL Wrist: Right/ Left WNL - Strength Shoulder: R/L 4/5 Umbrella Supervisor: right 45# left 45# Lateral Pinch: right 6# left 6# Tripod Pinch: right 6# left 6# - Lymphedema (Circumferential Measure) MCP: right 17.5 left 17.5cm Wrist: right 14cm left 14.5cm Lower forearm: right 16.5 left 17cm Largest forearm: right 23cm left 24cm Elbow: right 22cm left 23cm Largest humerus: right 29cm left 29cm Axcillary: right 30cm left 30cm - DASH-Disabilities of Arm, Shoulder& Hand DASH Sum: 76 - Goals Goal:: Pt will demo BUE MMT at 4+/5 to increase pts ind. with BADLS and IADLS. Goal:: pt will demo left shoulder flex to 140 degrees or greater to increase pts ind. with BADLs and IADLS. Goal:: pt will demo understanding of scar mtg and desensitization by end of 1st seesion. Goal:: Pt will report she is HARMONY. with all BADLS and IADLS by D/C Goal:: Pt will demo understanding of energy conservation eric. to decrease days of fatigue following home mtg tasks as cleaning, laundry shopping by d/c - Rehabilitation General Assessment: breast cancer- s/p masectomy Rehabilitation Potential: Good - Anticipated Interventions Anticipated Interventions: A/AAROM/PROM, Strengthening, Scar Care, ADL Training, Education re Diagnosis - Visit Plan Frequency: 2x /Week Duration: 4 Weeks General Plan: Therapy will initiate pts ed. on scar mtg - precautions for left UE and ed on lymphedema signs/symptoms- pt will begin functional ROM ex and progress to UB strengthening- pt was also ed. on energy conservation eric. to assist in decreasing pts fatigue. pt will be encouraged to return to her health and wellnes ex. plan following therapy. TEXT: Thank you for the opportunity to evaluate your patient. For Medicare and Medicare HMO plans, please review the plan of care and approve it. It will need to be FAXED BACK to us at [phone] for Medicare purposes. Please let me know if there are questions or concerns regarding this plan of care. Physician Signature: Date:
--- NOTE | 2017-10-10 10:28 | HP.PTDCSUM ---
HP - PT D/C Summary It has been my pleasure to treat JORGE LUIS BARRERA under orders from Stacey Pizano, for the diagnosis of Left Breast Cancer for a total of 13 visit(s). Discharge Date: Please see the following information for a summary of their discharge status. - Subjective Subjective: Patient reports that she is feeling better about physical therapy- She starts OT this week. Feels that she is getting more motivated. Doesn't always sleep well- does have medication to help. Has a hard time seeing and has fear associated with it. - Objective Objective/Function: Posture: good throughout. Gait: slightly deviated- short choppy steps. Stairs: asc recip with 2 HRs and desc non recip with 2 HR- reports hard to see. ROM: WFL. Strength: Ankle:5/5,Knee: 5/5, Hip: 4+/5 Core:fair plus - Goals Goal 1:: Patient will be I with HEP and progression Goal Progress: Goal Met Goal 2:: Patient will ambulate >800 feet with no SOB to demonstrate increased endurance Goal Progress: Goal Met Goal 3:: Patinet will demo 4+/5 strength in LE where deficit Goal Progress: Goal Met Goal 4:: Patient will maintain proper posture t/o tx session to demo increased core s/s. Goal Progress: Goal Met - Plan Plan: [facility]charge to [facility] - D/C Information If there are questions or concerns regarding this patient's physical therapy, please feel free to call me at [phone]. Thank you for the referral of this patient. Sincerely, Amelie Rodriguez
--- NOTE | 2017-10-13 08:38 | HP.OTEVAL_ITS ---
Patient's Visit Information JORGE LUIS BARRERA is a 77 year old F, referred to Occupational Therapy by Stacey Pizano, with a diagnosis of Masectomy. Date of Evaluation: 10/03/17 Occupational Therapist: Stephanie Schilling, OTChino/Lu, CHT - Subjective Subjective: Pt states she arrives to OT following a Masectomy 1--18, 11 nodes removal. ANC chemo- for 4 session in jan 2017 every 2 weeks-. 2 week break follow with 4 weeks more chemo - last chemo May 17, 2017 while tumor decreased in size- and then removal completed in Jun. Pt stated she does have swelling in her brain- steriods for 10 days and had gamma knife- and then had the step down with steriods - pt will have another MRI two days from now as follow up from her gamma knife procedure. - ROM Shoulder: Right WNL left shoulder 100 Elbow: Right WNL left limited due to hx fx Forearm: Right/Left WNL Wrist: Right/ Left WNL - Strength Shoulder: R/L 4/5 Director Maternal Child: right 45# left 45# Lateral Pinch: right 6# left 6# Tripod Pinch: right 6# left 6# - Lymphedema (Circumferential Measure) MCP: right 17.5 left 17.5cm Wrist: right 14cm left 14.5cm Lower forearm: right 16.5 left 17cm Largest forearm: right 23cm left 24cm Elbow: right 22cm left 23cm Largest humerus: right 29cm left 29cm Axcillary: right 30cm left 30cm - DASH-Disabilities of Arm, Shoulder& Hand DASH Sum: 76 - Goals Goal:: Pt will demo BUE MMT at 4+/5 to increase pts ind. with BADLS and IADLS. Goal:: pt will demo left shoulder flex to 140 degrees or greater to increase pts ind. with BADLs and IADLS. Goal:: pt will demo understanding of scar mtg and desensitization by end of 1st seesion. Goal:: Pt will report she is HARMONY. with all BADLS and IADLS by D/C Goal:: Pt will demo understanding of energy conservation eric. to decrease days of fatigue following home mtg tasks as cleaning, laundry shopping by d/c - Rehabilitation General Assessment: breast cancer- s/p masectomy Rehabilitation Potential: Good - Anticipated Interventions Anticipated Interventions: A/AAROM/PROM, Strengthening, Scar Care, ADL Training , Education re Diagnosis - Visit Plan Frequency: 2x /Week Duration: 4 Weeks General Plan: Therapy will initiate pts ed. on scar mtg - precautions for left UE and ed on lymphedema signs/symptoms- pt will begin functional ROM ex and progress to UB strengthening- pt was also ed. on energy conservation eric. to assist in decreasing pts fatigue. pt will be encouraged to return to her health and wellnes ex. plan following therapy. TEXT: Thank you for the opportunity to evaluate your patient. For Medicare and Medicare HMO plans, please review the plan of care and approve it. It will need to be FAXED BACK to us at [phone] for Medicare purposes. Please let me know if there are questions or concerns regarding this plan of care. Physician Signature: Date:
--- NOTE | 2017-10-25 10:42 | HP.OTDCSUM_ITS ---
HP - OT D/C Summary It has been my pleasure to treat JORGE LUIS BARRERA under orders from Stacey Pizano, for the diagnosis of Masectomy for a total of 7 visit(s). Please see the following information for a summary of their discharge status. 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 right lat. pinch 8# right tripod pinch 8# left lat.pinch 8# left tripod pinch 8#. pt has made gains in her functional UB strength testing out at 4+/5 grossly thourought- pt demo functional UB strength for ADLS - Goals Patient Goals: Regain Mobility, Regain Strength Other: ed. on lymphedema signs and symptoms Goal:: Pt will demo BUE MMT at 4+/5 to increase pts ind. with BADLS and IADLS. Goal:: pt will demo left shoulder flex to 140 degrees or greater to increase pts ind. with BADLs and IADLS. Goal:: pt will demo understanding of scar mtg and desensitization by end of 1st seesion. Goal:: Pt will report she is HARMONY. with all BADLS and IADLS by D/C Goal:: Pt will demo understanding of energy conservation eric. to decrease days of fatigue following home mtg tasks as cleaning, laundry shopping by d/c - Plan Plan: D/C - D/C Information Discharge Comments: pt was seen for 7 visits to ed. on scar mtg, lymphedema sighs and symptoms- pt also ind. with UB gym eq. pt is performing her HARMONY with all ADLS and IADLS- pt states she is going to talk to her counsler and will schedule her eye apt for her decline in her vision. If there are questions or concerns regarding this patient's occupational therapy , please fell free to call me at [phone]. Thank you for the referral of this patient. Sincerely, Stephanie Schilling, OTR/L, CHT
== END 2017-10-25 17:59 | disposition home or self-care (01) ==
LOC: OT 10:00
PROVIDERS: Family Provider Internal Medicine; PCP Internal Medicine; Visit Provider Physician Assistant
DX: C50.919 Malignant neoplasm of unspecified site of unspecified female breast (principal)
CPT/HCPCS: 97110; 97162; 97166; 97168; 97530

== ENCOUNTER → 2018-05-24 14:30 | Outpatient (CLI) | payer BC, SELFPAY ==
--- NOTE | 2018-05-24 14:33 | RAD_ITS ---
STUDY: X-RAY - LEFT ANKLE REASON FOR EXAM: Female, 77 years old. Twisted ankle TECHNIQUE: 3 view(s) of the ankle. COMPARISON: None. FINDINGS: Normal visualized distal tibia and fibula. Normal medial and lateral malleoli. Normal tibiotalar articulation and ankle mortise. Normal visualized talus and calcaneus. The visualized subtalar, talonavicular, calcaneocuboid and tarsal articulations are normal. The soft tissue structures are unremarkable. RAD/Ankle min 3 Views IMPRESSION: No acute osseous injury is evident. Electronically Signed: Silverio Dow MD at 9:58 EST Tel , Service support ,
== END ==
PROVIDERS: Family Provider Internal Medicine; PCP Internal Medicine; Referring Provider Nurse Practitioner Gerontology; Visit Provider Nurse Practitioner Gerontology
DX: M25.572 Pain in left ankle and joints of left foot (principal)
CPT/HCPCS: 73610

== ENCOUNTER 2018-05-29 12:43 | Emergency (ER) | payer BC, SELFPAY ==
[2018-05-29 12:45] VITALS: BP 123/66; PULSE 87; RESP 18; TEMP 36.6; O2SAT 97; BMI 27.6
--- NOTE | 2018-05-29 13:17 | ED.DCSUM_ITS ---
- ER Visit Summary Date of Service: 05/29/18 Chief Complaint: Ankle pain History of Present Illness: The patient is a 77 F with left ankle pain for about 2 weeks after the patient fell. It was also worse after riding a bike. She had negative x-rays about 5 days ago. She was prescribed on Aircast and she has been using a cane, but her symptoms persist. Mild swelling to the area but otherwise no associated symptoms. Never had this before. Physical Examination: Vital signs unremarkable. Afebrile. Inspection appears unremarkable except for some minimal diffuse edema to the left ankle region. No deformity. Skin is intact. Normal color. No erythema. No warmth, induration, or fluctuance noted. No laxity. Good range of motion. Diffusely tender to the area. Foot is unremarkable. Calf is soft and supple. Test Results: None performed Emergency Department Course and Treatment: Patient had negative x-rays greater than a week after her injury. I would expect to see a fracture at that point. I do not believe repeating x-rays would be useful at this point. The patient declined repeat x-rays. I advised her she may need an MRI to evaluate for stress fractures or ligamentous injury if her symptoms persist. She has been taking Tylenol. I advised her to continue taking Tylenol. She declined opioids as she has a history of alcoholism. She cannot take anti-inflammatories per her oncologist. I suspect she had a sprain and has continued pain from use. There is nothing to suggest infection, gout, DVT, or other pathology. She was given an Aircast, Jb wrap, walker. Follow-up with primary care. Treatment Plan: Above Disposition: Discharge Impression:. Left ankle pain This note was generated with [employer] dictation software. It may contain incorrect words, spelling, and punctuation that were not noted in review of the chart prior to signing ED Disposition - Plan for ED Patient: Chief Complaint: Lower Extremity Injury Referrals: Tayla Espinal DO [Primary Care Provider] -
--- NOTE | 2018-05-29 13:18 | ED.DEP ---
ED Disposition - Plan for ED Patient: Chief Complaint: Lower Extremity Injury Instructions: ED LENA Referrals: Tayla Espinal DO [Primary Care Provider] -
--- OUTSIDE RECORDS SUMMARY | 2018-07-15 17:12 | XMS RPT_ITS | Continuity of Care Document ---
:1940 Author Organization [facility] Address [facility] [address] [place] [address] Phone Care Team Providers Name Role Phone Tayla Espinal DO Unavailable BRYANNA Sumner Unavailable Unavailable Brooklyn Lr Unavailable Unavailable Shala Taylor Unavailable Unavailable SHANNON Richardson Unavailable Unavailable Unavailable Unavailable Problems Name Dates Details Abnormal TSH (R79.89, 790.6) Status: Active Achilles tendinitis, right leg (M76.61, 726.71) Status: Active Acute sinusitis, unspecified (J01.90, 461.9) Status: Active Alcohol abuse (F10.10, 305.00) Comments: Previously Status: Active Anxiety (F41.9, 300.00) Comments: stable Status: Active Atrial fibrillation (I48.91, 427.31) Comments: history of a fib from percarditis in 2007 -- s/p surgical correction and all other w/u etiology was negative thus need to reconsider need for BB still Status: Active Benign essential hypertension (I10, 401.1) Comments: history of pericardial effusion with pericardial window Status: Active BMI 25.0-25.9,adult (Z68.25, V85.21) Status: Active Breast cancer screening (Z12.39, V76.10) Status: Active Chronic cough (R05, 786.2) Comments: alina, Status: Active Diffuse cystic mastopathy (N60.19, 610.1) Status: Active 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, 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) Status: Active Fracture Of Radius Comments: left 04/26 Status: Active Glaucoma (H40.9, 365.9) Status: Active Hypercholesterolemia (E78.00, 272.0) Status: Active Hypothyroidism, unspecified (E03.9, 244.9) Status: Active Knee pain, acute, right (M25.561, 719.46) Comments: using antiinflammation Status: Active Metastatic breast cancer (C50.919, 174.9) Comments: to brain- left frontal lobe- s/p gamma knife XRT 08/06 Status: Active 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, 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) Status: Active Non-smoker (Z78.9, V49.89) Status: Active Osteoarthritis (M19.90, 715.90) Status: Active Osteoarthrosis (M19.90, 715.90) Status: Active Osteopenia (M85.80, 733.90) Status: Active Osteoporosis (M81.0, 733.00) Comments: progressed bc of steriods with chemo regime and oncologist working on starting prolia but wants her jaw examined by dentist first Status: Active Pregnancies () Comments: 0 Status: Active Rosacea (L71.9, 695.3) Status: Active Sprain of right ankle, initial encounter (S93.401A, 845.00) Comments: vs maddie teondonitis from course of levaquin Status: Active Unspecified contact dermatitis, unspecified cause (L25.9, 692.9) Status: Active Unspecified Diagnosis Status: Active Vasovagal syncope (R55, 780.2) Status: Active Vasovagal syncope (R55, 780.2) Comments: pain as etiology Status: Active Vitamin D deficiency, unspecified (E55.9, 268.9) Status: Active Medications Name Dates Details Anastrozole 1 MG Oral Tablet Active 1 qd (1 MG) ATIVAN, 0.5MG (Oral Tablet) 1 Tablet tid for 0 days Refills: 0 Ordered:01-Jun-2009 Lilian Richardson LPN Start : 20-May-2008 Active Faslodex 250 MG/5ML Intramuscular Solution 1 q mo (250 MG/5ML) Active Levothyroxine Sodium 112 MCG Oral Tablet 1 (one) Tablet daily for 30 days Quantity: 30 {Tablet} Refills: 3 Ordered:26-Apr-2018 Amelie Espinal DOn DO Tayla Stone DO Start : 26-Apr-2018 Active Metoprolol Tartrate 50 MG Oral Tablet 1 (one) Tablet bid for 0 days Quantity: 180 {Tablet} Refills: 3 Ordered:28-Aug-2017 Kylie LINDER Ameliegia , Tayla Stone DO Start : 28-Aug-2017 Active Omeprazole 20 MG Oral Capsule Delayed Release 2 qd (20 MG) Active Ondansetron 4 MG Oral Tablet Disintegrating 1 tid prn (4 MG) Active Tylenol 325 MG Oral Tablet 2 prn (325 MG) Active Advil 200 MG Oral Tablet 1 (one) Tablet Tablet tid prn for 0 days Quantity: 30 {Tablet} Refills: 0 Ordered:06-Dec-2017 Lilian Richardson LPN Start : 11-May-2015 End : 06-Dec-2017 Inactive ASPIRIN EC LOW DOSE, 81MG (Oral Tablet Delayed Release) 1 qd for 0 days Refills: 0 Ordered:13-Sep-2012 Lilian Richardson LPN End : 13-Sep-2012 Inactive AUGMENTIN, 875-125MG (Oral Tablet) 1 Tablet bid for 14 days Quantity: 28 {Tablet} Refills: 0 Ordered:04-Jul-2012 Elizabeth Villanueva CNP Start : 04-Jul-2012 End : 18-Jul-2012 Inactive Cardizem CD 180 MG Oral Capsule Extended Release 24 Hour 1 Capsule ER 24HR qd for 0 days Quantity: 90 {Capsule} Refills: 0 Ordered:17-Aug-2016 Elizabeth Villanueva CNP Start : 17-Aug-2016 End : 17-Aug-2016 Inactive Clotrimazole 1 % External Cream 1 (one) Application Application tid for 30 days Quantity: 30 {Gram} Refills: 2 Ordered:06-Dec-2017 Lilian Richardson LPN Start : 30-Mar-2017 End : 06-Dec-2017 Inactive DRISDOL, [id number] (Oral Capsule) 1 Capsule 2 X WEEK FOR 4 WEEKS THEN 1 TAB WEEKLY for 0 days Quantity: 8 {Capsule} Refills: 4 Ordered:27-May-2011 Keren Wilde LPN Start : 27-Sep-2010 End : 27-May-2011 Inactive LEVOTHYROXINE SODIUM, 112MCG (Oral Tablet) 1 tab qd, 2 tabs on Monday Tablet Daily for 0 days Quantity: 34 {Tablet} Refills: 1 Ordered:21-Dec-2006 Lilian Richardson LPN Start : 21-Dec-2006 End : 05-May-2008 Inactive Lopressor 50 MG Oral Tablet 1 Tablet bid for 0 days Quantity: 180 {Tablet} Refills: 0 Ordered:17-Aug-2016 Elizabeth Villanueva CNP Start : 17-Aug-2016 End : 17-Aug-2016 Inactive METROGEL, 1% (External Gel) Apply Gel BID for 0 days Quantity: 1 {Gel} Refills: 1 Ordered:13-Jul-2007 Lilian Richardson LPN Start : 13-Jul-2007 End : 05-May-2008 Inactive Comments:dispense one tube NASACORT AQ, 55MCG/ACT (Nasal Aerosol Solution) Aerosol Soln QD for 0 days Quantity: 1 {Aerosol_Soln} Refills: 0 Ordered:20-May-2008 Lilian Richardson LPN Start : 20-May-2008 End : 01-Jun-2009 Inactive PROAIR HFA, 108 (90 Base)MCG/ACT (Inhalation Aerosol Solution) 2 (two) Puff(s) tid for 0 days Quantity: 1 {Aerosol_Soln} Refills: 0 Ordered:13-Sep-2012 Lilian Richardson LPN Start : 04-Jul-2012 End : 13-Sep-2012 Inactive VALTREX, 1GM (Oral Tablet) 2 (two) Tablet bid for 0 days Quantity: 4 Refills: 0 Ordered:13-Sep-2012 Lilian Richardson LPN Start : 27-May-2011 End : 13-Sep-2012 Inactive VITAMIN D3, 5000UNIT (Oral Capsule) 1 Capsule daily for 90 days Refills: 0 Ordered:13-Sep-2012 Lilian Richardson LPN Start : 26-Sep-2011 End : 13-Sep-2012 Inactive DilTIAZem CD 180 MG Oral Capsule Extended Release 24 Hour 1 (one) Capsule ER 24HR qd for 0 days Quantity: 90 {Capsule} Refills: 3 Ordered:24-Jul-2017 Bertha Espinal DO, DO, KathleenFearon DO, Kathleen Start : 24-Jul-2017 End : 24-Jul-2017 Discontinued Comments:watch bp Levoxyl 125 MCG Oral Tablet 1 (one) Tablet qd for 0 days Quantity: 90 {Tablet} Refills: 3 Ordered:01-Feb-2018 Brooklyn Lr Start : 31-Jan-2018 End : 01-Feb-2018 Discontinued Allergies and Adverse Reactions Name Dates Details Alcohol *CHEMICALS* (Allergy) Status: Active Tetracyclines (Allergy) Status: Active Past Medical History Name Dates Details BMI 24.0-24.9, adult (Z68.24, V85.1) Status: Resolved as of 31-Jan-2018 BMI 26.0-26.9,adult (Z68.26, V85.22) Status: Resolved as of 31-Jan-2018 BMI 27.0-27.9,adult (Z68.27, V85.23) Status: Resolved as of 31-Jan-2018 CERTAIN ADVERSE EFFECTS NOT ELSEWHERE CLASSIFIED; ALLERGY, UNSPECIFIED (995.3) Status: Resolved as of 31-Jan-2018 Dehydration (E86.0, 276.51) Status: Resolved as of 06-Dec-2017 Diarrhea (R19.7, 787.91) Status: Resolved as of 06-Dec-2017 EXTRINSIC ASTHMA UNSPECIFIED (493.00) Status: Resolved as of 07-Feb-2014 Hematuria (R31.9, 599.7) Status: Resolved as of 07-Feb-2014 INGUINAL HERNIORRHAPHY, NOS Comments: Right Status: Resolved as of 31-Jan-2018 LARYNGITIS (J04.0, 464.00) Status: Resolved as of 07-Feb-2014 Neoplasm of uncertain behavior of skin (D48.5, 238.2) Status: Inactive as of 25-Dec-2008 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 [address] [place], [place] [address] OFFICE VISIT Date of Service: 11/07/17 MR#: [id number] Acct: [id number] Name: ANNA PRICE Rep #: [id number] : 1940 Provider: Stacey Pizano PA-C Age/Sex: 77/F Location: [facility] Status: Signed Intake Intake Visit Reasons: pain at mastectomy site 2017 Chief Comp laint: Encephalopathy Kosher Dietary Service Manager Required: No Is patient in pain?: Yes (left chest pain) Allergies shellfish derived Allergy (Verified 11/07/17 08:25) Hives tetracycline [Tetracycline] Allergy (Verifi ed 11/07/17 08:25) pt unsure alcohol Adverse Reaction (Verified 11/07/17 08:25) Unknown promethazine [From Phenergan] Adverse Reaction (Verified 11/07/17 08:25) Other Medications Lorazepam [Ativan] 0 .25 mg PO TID PRN PRN 07/14/13 [History Confirmed 11/07/17] Metoprolol Tartrate [Lopressor (beta mike)] 50 mg PO BIDCM 07/14/13 [History Confirmed 11/07/17] Levothyroxine [Synthroid] 250 mcg PO QWEEK 06/15/17 [History Confirmed 11/07/17] Ondansetron [Zofran Odt] 8 mg PO Q8H PRN PRN 07/15/17 [History Confirmed 11/07/17] Acetaminophen [Tylenol Tablet] 325 mg PO Q6H PRN PRN 09/08/17 [History Confirmed 11/07/17] Fluconazole [Diflucan] 100 mg PO DAILY #10 tab 09/10/17 [Rx Confirmed 11/07/17] Levothyroxine [Synthroid] 125 mcg PO DAILY 09/10/17 [History Confirmed 11/07/17] Ondansetron [Zofran Odt] 4 mg PO Q8H PRN PRN #20 tab 09/10/17 [Rx Confirmed 11/07/17] PFSH Medical History Left breast mass (Chronic) Hypothyroidism (Chronic) History of pericardial e ffusion (Chronic) History of viral pericarditis (Chronic) History of atrial fibrillation (Chronic) Surgical History Status post gamma knife treatment (Chr onic) History of modified radical mastectomy of left breast (Chronic) S/P breast biopsy (Acute) S/P pericardial surgery (Acute) Family History Father Diabe sandy Hypertension CVA (cerebral vascular accident) Sister Asthma Diabetes Hypertension Arthritis Osteoporosis Lung disease Social History Smoking Status: Former smoker second hand exposure: No alcoho l intake: never substance use type: does not use what type of physical activity do you participate in: none frequency: does not exercise seatbelt use: always HPI HPI HPI: ANNA BARRERA, is a 77 F I am following for metastatic left breast cancer. Patient was noted to have a lump in her left axilla 6 weeks after surgery. She notes this has since resolved. She notes weakness of her right acevedo d and lower extremity. She had an MRI of her brain which demonstrated a metastatic brain cancer. She was treated with Gamma Knife treatment at [facility]. Patient had a follow-up MRI of the brain a [facility] which demonstrated dramatic decrease in the size of the brain met. Patient called into our office this morning noting a pulling sensation at her mastectomy incision when she bent over to pull on a rug while using the bathroom. She returns for a follow-up. She notes some improvement. She notes the discomfort is worse at night time. She notes this discomfort wakes her up at night. She has been continuing to perform normal activities. She has not been able to [facility]. She is concerned she is loosing all of her strength. She seems frustrated today. Exam Const Gener al: cooperative, healthy appearing, comfortable, no acute distress Chest Other: Left chest incision- c/d/i. Very nicely healed. Minimal amount of discomfort with palpation near the lateral end of the in cision. Assessment AND Plan Problems 1. 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 Musculoskeletal disorder M79.9 Plan - Continue using heating pad - Use NSAIDs as needed - May go to [facility] and perform leg work outs. - Follow-up in 3 weeks Coding Level of Care Code Off vis,est,level 3 Diagnoses Malignant neoplasm of lower-inne r quadrant of left breast in female, estrogen receptor positive C50.312 Breast location: lower inner quadrant of breast Estrogen receptor status: positive Patient sex: female Laterality: left Musculoske letal disorder M79.9 11/08/17 0967 <Electronically signed by Stacey Pizano PA-C> Date Stacey Pizano PA-C Cosigner Signature: D ate (if applicable) CC: 31-Oct-2017 Surgery Visit Report Result: Comments: See Note; NOTES: [facility] [address] [place] [address] OFFICE VISIT Date of Service: 10/31/17 MR#: [id number] Acct: [id number] Name: ANNA PRICE Rep #: [id number] : 1940 Provider: Stacey Pizano PA-C Age/Sex: 77/F [place] [facility] Status: Signed Intake Intake Visit Reasons: pain at mastectomy site 2017 Chief Comp laint: Encephalopathy Is patient in pain?: Yes (Left chest at incision) Pain scale (1-10): 4 Allergies shellfish derived Allergy (Verified 10/31/17 08:32) Hives tetracycline [Tetracyc line] Allergy (Verified 10/31/17 08:32) pt unsure alcohol Adverse Reaction (Verified 10/31/17 08:32) Unknown promethazine [From Phenergan] Adverse Reaction (Verified 10/31/17 08:32) Other Medications Lorazepam [Ativan] 0.25 mg PO TID PRN PRN 07/14/13 [History Confirmed 10/31/17] Metoprolol Tartrate [Lopressor (beta mike)] 50 mg PO BIDCM 07/14/13 [History Confirmed 10/31/17] Levothyroxine [Synthr oid] 250 mcg PO QWEEK 06/15/17 [History Confirmed 10/31/17] Ondansetron [Zofran Odt] 8 mg PO Q8H PRN PRN 07/15/17 [History Confirmed 10/31/17] Acetaminophen [Tylenol Tablet] 325 mg PO Q6H PRN PRN [History Confirmed 10/31/17] Fluconazole [Diflucan] 100 mg PO DAILY #10 tab 09/10/17 [Rx Confirmed 10/31/17] Levothyroxine [Synthroid] 125 mcg PO DAILY 09/10/17 [History Confirmed 10/31/17] Ondansetr on [Zofran Odt] 4 mg PO Q8H PRN PRN #20 tab 09/10/17 [Rx Confirmed 10/31/17] PFSH Medical History Left breast mass (Chronic) Hypothyroidism (Chronic) History of pericardial effusion (Chronic) History of viral pericarditis (Chronic) History of atrial fibrillation (Chronic) Surgical History Status post gamma knife treatment (Chronic) History of modified radical mastectomy of left breast (Chronic) S/P breast biopsy (Acute) S/P pericardial surgery (Acute) Family History Father Diabetes Hypertension CVA (cerebral vascular accident) Sister Asthma Diabetes Hypertension Arthritis Osteoporosis Lung disease Social History Smoking Status: Former smoker se cond hand exposure: No alcohol intake: never substance use type: does not use what type of physical activity do you participate in: none frequency: does not exercise seatbelt use: always HPI H PI HPI: ANNA BARRERA, is a 77 F I am following for metastatic left breast cancer. Patient was noted to have a lump in her left axilla 6 weeks after surgery. She notes this has since resolved. She n otes weakness of her right hand and lower extremity. She had an MRI of her brain which demonstrated a metastatic brain cancer. She was treated with Gamma Knife treatment at [facility]. Patient had a follow-up MRI of the brain at [facility] which demonstrated dramatic decrease in the size of the brain met. Patient called into our office this morning noting a pulling sensation at her mastectomy i ncision when she bent over to pull on a rug while using the bathroom. She denies constant pain/discomfort. She notes minimal discomfort with palpation. Exam Chest Other: Left chest incision- c/d/i. M inimal amount of discomfort with palpation. Assessment AND Plan Problems 1. History of modified radical mastectomy of left breast Z90.12 2017 2. Musculoskeletal pain M79.1 Plan - Recommend june ing Tylenol for discomfort - Use heating pad multiple times per day - Follow-up in 1 week Coding Level of Care Code Off vis,est,level 3 Diagnoses History of modified radical mastectomy of left breast Z90.12 Musculoskeletal pain M79.1 10/31/17 1237 <Electronically signed by Stacey Pizano PA-C> Date Stacey hernandez Signature: Date (if applicable) CC: 25-Oct-2017 OT D/C Summary Result: Comments: See Note; NOTES: [facility] [address] [place] [address]. [address] [place], [place] [address] Fax REHABILITATION SERVICES DIS CHARGE SUMMARY MR#: [id number] Acct: [id number] Name: ANNA BARRERA Rep #: [id number] : 1940 77 From: Stephanie Schilling OTR/L, CHT Referring DrAlondra: Stacey Pizano PA-C Status: REG RCR Yolande l Date: Discharge Date: - OT D/C Summary It has been my pleasure to treat ANNA BARRERA under orders from Stacey Pizano, for the diagnosis of Masectomy for a total of 7 visit(s). Please see the following information for a summary of their discharge status. - Overall Improvement % Improvement: 80 - Objective Objective/Function: right research computing specialist 45#. right research computing specialist 45#. right lat. pinch 8# righ t tripod pinch 8# left lat.pinch 8# left tripod pinch 8#. pt has made gains in her functional UB strength testing out at 4+/5 grossly thourought- pt demo functional UB strength for ADLS - Goals Patient Goals: Regain Mobility, Regain Strength Other: ed. on lymphedema signs and symptoms Goal:: Pt will demo BUE MMT at 4+/5 to increase pts ind. with BADLS and IADLS. Goal:: pt will demo left shoulder flex to 140 degrees or greater to increase pts ind. with BADLs and IADLS. Goal:: pt will demo understanding of scar mtg and desensitization by end of 1st seesion. Goal:: Pt will report she is HARMONY. with all BADLS and IADLS by D/C Goal:: Pt will demo understanding of energy conservation eric. to decrease days of fatigue following home mtg tasks as cleaning, laundry shopping by d/c - Plan Plan: D/C - D/C I nformation Discharge Comments: pt was seen for 7 visits to ed. on scar mtg, lymphedema sighs and symptoms- pt also ind. with UB gym eq. pt is performing her HARMONY with all ADLS and IADLS- pt states she i s going to talk to her counsler and will schedule her eye apt for her decline in her vision. If there are questions or concerns regarding this patient's occupational therapy, please fell free to call me at [phone]. Thank you for the referral of this patient. Sincerely, STALIN Cunningham/Lu, KULWANTT <Electronically signed by Stephanie GANT/KULWANT LeighT> 10/25/17 1053 CC: Stacey bowie PA-C; Tayla Espinal DO MK Signed 16-Oct-2017 OT General Evaluation Result: Comments: See Note; NOTES: [facility] [address] [place] [address]. [address] [place] [address] Fax REHABILITATION SERVICES INI TIAL EVALUATION MR#: [id number] Acct: [id number] Name: ANNA BARRERA Rep #: [id number] : 1940 77 From: Stephanie REYNOSO CHT Referring DrAlondra: Stacey Pizano PA-C Status: REG RCR In surance: ANTHCALVIN Evdirk Date: MEDICARE A ONLY Patient's Visit Information ANNA BARRERA is a 77 year old F, referred to Occupational Therapy by Stacey Pizano, with a diagnosis of Masectomy. Josias e of Evaluation: 10/03/17 Occupational Therapist: Stephanie Schilling, OTR/Lu, CHT - Subjective Subjective: Pt states she arrives to OT following a Masectomy 1--18, 11 nodes removal. [facility] chemo- for 4 sess ion in jan 2017 every 2 weeks-. 2 week break follow with 4 weeks more chemo - last chemo May 17, 2017 while tumor decreased in size- and then removal completed in Jun. Pt stated she does have swelling i n her brain- steriods for 10 days and had gamma knife- and then had the step down with steriods - pt will have another MRI two days from now as follow up from her gamma knife procedure. 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 with BADLS and IADLS. Goal:: pt will demo left shoulder flex to 140 degrees or greater to increase pts ind. with BADLs and IADLS. Goal:: pt will demo understanding of scar mtg and desensitization by end of 1st seesion. Goal:: Pt will report she is HARMONY. with all BADLS and IADLS by D/C Goal:: Pt will demo understanding of energy conservation eric. to decrease days of fatigue f ollowing home mtg tasks as cleaning, laundry shopping by d/c - Rehabilitation General Assessment: breast cancer- s/p masectomy Rehabilitation Potential: Good - Anticipated Interventions Anticipated In terventions: A/AAROM/PROM, Strengthening, Scar Care, ADL Training, Education re Diagnosis - Visit Plan Frequency: 2x /Week Duration: 4 Weeks General Plan: Therapy will initiate pts ed. on scar mtg - pr ecautions for left UE and ed on lymphedema signs/symptoms- pt will begin functional ROM ex and progress to UB strengthening- pt was also ed. on energy conservation eric. to assist in decreasing pts fatig ue. pt will be encouraged to return to her health and wellnes ex. plan following therapy. TEXT: Thank you for the opportunity to evaluate your patient. For Medicare and Medicare HMO plans, please r eview the plan of care and approve it. It will need to be FAXED BACK to us at [phone] for Medicare purposes. Please let me know if there are questions or concerns regarding this plan of care. Vladimir peralta Signature: Date: <Electronically signed by Stephanie REYNOSO CHT> 10/16/17 0811 CC: Stacey Pizano PA-C; Tayla Espinal DO MK Signed For Medicare only, by signing this I certify the plan of care. Physicians Signature Date 10-Oct-2017 PT D/C Summary (1) Result: Comments: See Note; NOTES: [facility] [address] [place] [address] Fax REHABILITATION SERVICES NISA BENJAMIN SUMMARY MR#: [id number] Acct: [id number] Name: ANNA BARRERA Rep #: [id number] : 1940 77 From: Amelie GAMEZT Referring Dr.: Stacey Pizano PA-C Status: REG RCR Insurance: DAY[employer] MEDICARE A ONLY HP - PT D/C Summary It has been my pleasure to treat ANNA BARRERA under orders from Stacey Pizano, for the diagnosis of Left Breast Cancer for a total of 13 visit(s). Disc harge Date: Please see the following information for a summary of their discharge status. - Subjective Subjective: Patient reports that she is feeling better about physical therapy- She starts OT thi s week. Feels that she is getting more motivated. Doesn't always sleep well- does have medication to help. Has a hard time seeing and has fear associated with it. - Objective Objective/Function: Postur e: good throughout. Gait: slightly deviated- short choppy steps. Stairs: asc recip with 2 HRs and desc non recip with 2 HR- reports hard to see. ROM: WFL. Strength: Ankle:5/5,Knee: 5/5 , Hip: 4+/5 Core:fair plus - Goals Goal 1:: Patient will be I with HEP and progression Goal Progress: Goal Met Goal 2:: Patient will ambulate >800 feet with no SOB to demonstrate increased endu allie Goal Progress: Goal Met Goal 3:: Patinet will demo 4+/5 strength in LE where deficit Goal Progress: Goal Met Goal 4:: Patient will maintain proper posture t/o tx session to demo increased core s/s . Goal Progress: Goal Met - Plan Plan: Discharge to [facility]P through [facility] - D/C Information If there are questions or concerns regarding this patient's physical therapy, please feel free to call me at [phone]. Thank you for the referral of this patient. Sincerely, Amelie Rodriguez <Electronically signed by Amelie Rodriguez DPT> 10/10/17 1028 CC: Stacey Pizano PA-C; Tayla Espinal DO ELR Signed 05-Oct-2017 OT General Evaluation Result: Comments: See Note; NOTES: [facility] [address] [place] [address]. [address] [place] [address] Fax REHABILITATION SERVICES INI TIAL EVALUATION MR#: [id number] Acct: [id number] Name: ANNA BARRERA Rep #: [id number] : 1940 77 From: Stephanie GANT/Lu, CHT Referring DrAlondra: Stacey Pizano PA-C Status: REG RCR In surance: KRISTEL Pike Date: MEDICARE A ONLY Patient's Visit Information ANNA BARRERA is a 77 year old F, referred to Occupational Therapy by Stacey Pizano, with a diagnosis of Masectomy. Josias e of Evaluation: 10/03/17 Occupational Therapist: Stephanie Schilling, SYEDAR/Lu, CHT - Subjective Subjective: Pt states she arrives to OT following a Masectomy 1--18, 11 nodes removal. ANC chemo- for 4 sess ion in jan 2017 every 2 weeks-. 2 week break follow with 4 weeks more chemo - last chemo May 17, 2017 while tumor decreased in size- and then removal completed in Jun. Pt stated she does have swelling i n her brain- steriods for 10 days and had gamma knife- and then had the step down with steriods - pt will have another MRI two days from now as follow up from her gamma knife procedure. 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 with BADLS and IADLS. Goal:: pt will demo left shoulder flex to 140 degrees or greater to increase pts ind. with BADLs and IADLS. Goal:: pt will demo understanding of scar mtg and desensitization by end of 1st seesion. Goal:: Pt will report she is HARMONY. with all BADLS and IADLS by D/C Goal:: Pt will demo understanding of energy conservation eric. to decrease days of fatigue f ollowing home mtg tasks as cleaning, laundry shopping by d/c - Rehabilitation General Assessment: breast cancer- s/p masectomy Rehabilitation Potential: Good - Anticipated Interventions Anticipated In terventions: A/AAROM/PROM, Strengthening, Scar Care, ADL Training, Education re Diagnosis - Visit Plan Frequency: 2x /Week Duration: 4 Weeks General Plan: Therapy will initiate pts ed. on scar mtg - pr ecautions for left UE and ed on lymphedema signs/symptoms- pt will begin functional ROM ex and progress to UB strengthening- pt was also ed. on energy conservation eric. to assist in decreasing pts fatig ue. pt will be encouraged to return to her health and wellnes ex. plan following therapy. TEXT: Thank you for the opportunity to evaluate your patient. For Medicare and Medicare HMO plans, please r eview the plan of care and approve it. It will need to be FAXED BACK to us at [phone] for Medicare purposes. Please let me know if there are questions or concerns regarding this plan of care. Vladimir peralta Signature: Date: <Electronically signed by Stephanie GANT/MARY Leigh> 10/05/17 0934 CC: Stacey Pizano PA-C; Tayla Espinal DO MK Signed For Medicare only, by signing this I certify the plan of care. Physicians Signature Date 08-Sep-2017 Emergency Department Summary Result: Comments: See Note; NOTES: [facility] Medical Records Department [address] [place] [address] Emergency Department Summary 09/08/17 1630 MR#: [id number] Acct: [id number] Name: ANNA BARRERA Rep #: [id number] : 1940 77 From: Jose May MD PCP: Tayla Espinal DO Status: REG ER ADDENDUM by Srinivas Gabriel on 09/08/17 at 1756 Patient was endorsed to me by the [facility] physician with instructions to check on CT and chest x-ray and admit the patient. CT brain showed no acute pathology. Chest x-ray showed no acute pathology. Repeat evaluation of the patient at 17 50 shows that she is alert and oriented only 2, confused, but more appropriate and calm her. I discussed patient's case with Dr. Salgado, and the patient will be admitted for encephalopathy. Date __ Srinivas Gabriel MD cc: Tayla Espinal DO * Signed - ER Visit Summary Date of Service: 09/08/17 Chief Complaint: Nausea and vomiting History of Present Ill ness: The patient is a 77 F with nausea and vomiting that started yesterday. She also feels tired. She does not have any abdominal pain. She is having normal bowel movements. Denies fever or urinary sym ptoms. Denies anything like this in the past. She has a history of breast cancer. Her last chemotherapy treatment was in April. She had a mastectomy in June and no issues since then. Physical Exa mination: Vital signs unremarkable. Patient alert and oriented. No acute distress. She has a depressed mood and flat affect. Heart regular. Lungs clear. Abdomen soft and nontender. No masses or distenti on. Skin appears normal in color without jaundice or pallor. Test Results: EKG shows sinus rhythm at a rate of 87. No acute changes, infarction, or ischemia. White count 2.9. Liver enzymes slightly bridget vated. Lipase normal. Urinalysis normal. Troponin normal. CT shows liver lesions which are likely benign cysts. No visualization of the appendix. Emergency Department Course and Treatment: Patient rece ived fluids and nausea medicine. I reassessed her and wanted to talk to her about her results. The patient was laying naked in the bed and pulling out her IV. She thought it was 1972. She was clearly de lirious. I was able to redirect her and make her more comfortable by sitting her up in bed. We will check a head CT and a chest x-ray. The patient will need hospitalization. Results are still pending. T he oncoming doctor will check. Treatment Plan: As above Disposition: Admission Impression: 1. Nausea and vomiting 2. Delirium This note was generated with [employer] Teh[employer] software. It may contain incorrect words, spelling, and punctuation that were not noted in review of the chart prior to signing ED Disposition - Plan for ED Patient: Chief Complaint: Nausea/Vomiting Referrals: Douglsa Espinal DO [Primary Care Provider] - What to do if you have Problems For any increased pain, shortness of breath, bleeding, nausea or vomiting, chest pain, or any unexpected problems, contact your Prima Care Provider. Call [facility] ([phone]) or report to the closest Emergency Room. Call 911 if necessary. 09/08/17 1712 <Electronically signed by Jose May MD> Date ___ Jose May MD Cosigner Signature (If Indicated): Date CC: Tayla Espinal DO 08-Sep-2017 Emergency Department Summary Result: Comments: See Note; NOTES: [facility] Medical Records Department [address] [place] [address] Emergency Department Summary 09/08/17 1630 MR#: [id number] Acct: [id number] Name: ANNA BARRERA Rep #: [id number] : 1940 77 From: Jose May MD PCP: Tayla Espinal DO Status: REG ER - ER Visit Summary Date of Service: 09/08/17 Chief Complaint: Nausea and vomiting History of Present Illness: The patient is a 77 F with nausea and vomiting that started yesterday. She also feels tired. She does not have any abdominal pain. She is having normal bowel movements. Den ies fever or urinary symptoms. Denies anything like this in the past. She has a history of breast cancer. Her last chemotherapy treatment was in April. She had a mastectomy in June and no issues s niurka then. Physical Examination: Vital signs unremarkable. Patient alert and oriented. No acute distress. She has a depressed mood and flat affect. Heart regular. Lungs clear. Abdomen soft and nontende r. No masses or distention. Skin appears normal in color without jaundice or pallor. Test Results: EKG shows sinus rhythm at a rate of 87. No acute changes, infarction, or ischemia. White count 2.9. Li rosalio enzymes slightly elevated. Lipase normal. Urinalysis normal. Troponin normal. CT shows liver lesions which are likely benign cysts. No visualization of the appendix. Emergency Department Course and Treatment: Patient received fluids and nausea medicine. I reassessed her and wanted to talk to her about her results. The patient was laying naked in the bed and pulling out her IV. She thought it was 1972. She was clearly delirious. I was able to redirect her and make her more comfortable by sitting her up in bed. We will check a head CT and a chest x-ray. The patient will need hospitalization. Resu lts are still pending. The oncoming doctor will check. Treatment Plan: As above Disposition: Admission Impression: 1. Nausea and vomiting 2. Delirium This note was generated with Cit[employer] Style dictation software. It may contain incorrect words, spelling, and punctuation that were not noted in review of the chart prior to signing ED Disposition - Plan for ED Patient: Chief Complaint: Nausea/Vomiting Referrals: Tayla Espinal, DO [Primary Care Provider] - What to do if you have Problems For any increased pain, shortness of breath, bleeding, nausea or vomiting, chest pain, or any unexpected prob lems, contact your Primary Care Provider. Call [facility] ([phone]) or report to the closest Emergency Room. Call 911 if necessary. 09/08/17 6516 <Electronically signed by Jose iglesias MD> Date Jose May MD Cosigner Signature (If Indicated): Date CC: Tayla Kylie LINDER 08-Sep-2017 Brain/Head without Contrast Result: Comments: See Note; NOTES: [facility] Imaging Services [address] [place] [address] Brain/Head without Contrast MR#: [id number] Acct: [id number] Name: ANNA BARRERA Rep #: [id number] : 1940 F 77 From: Nasrin Orta MD PCP: Tayla Espinal DO Status: REG ER Study: Brain/Head without Contrast Date of Exam: 09/08/17 Exam# [id number] Ordering Dr: Jose May STUDY: CT BRAIN WITHOUT CONTRAST REASON FOR EXAM: Female, 77 years old. Alteration of awareness RADIATION DOSAGE (If Supplied By Facility): CTDIvol = ( 44.99 ) mGy, DLP = ( 796.11 ) mGycm TECHNIQ UE: Transaxial CT imaging of the brain was performed without administration of intravenous contrast material. Individualized dose optimization techniques were used for this CT. COMPARISON: Brain MRI da agatha July 31, 2017 FINDINGS: The soft tissues are unremarkable. The osseous structures are unremarkable. Normal size ventricles and extra-axial spaces for the pa tient's age. The white matter tracts are unremarkable. The basal ganglia and thalami are unremarkable. No abnormalities are seen in the brainstem. The cerebellum is unremarkable. There is subtle hypoden sity in the left frontal lobe. There is no intracranial hemorrhage. There are no findings of acute ischemia. The visualized sinuses are unremarkable. ORDER #: CT/Brain/Head without Contrast IMPRESSION: No acute intracranial abnormalities. There is no acute hemorrhage. There is subtle hypodensity in the left frontal lobe corresponding in location to the known metastatic lesion seen on the prior MRI. Electronically Signed: Nasrin Orta MD at 17:11 EDT Tel Direct: [phone], Service support , CC: Jose May MD; Tayla Espinal DO Center Receptionist: Signed 08-Sep-2017 Chest 1 View (Portable) Result: Comments: See Note; NOTES: [facility] Imaging Services [address] [place] [id number] Chest 1 View (Portable) MR#: [id number] Acct: [id number] Name: ANNA BARRERA Rep #: [id number] : 1940 F 77 From: Nasrin Orta MD PCP: Tayla Espinal DO Status: REG ER Study: Chest 1 View (Portable) Date of Exam: 09/08/17 Exam# [id number] Ordering Dr: Jose May MD STUD Y: X-RAY CHEST REASON FOR EXAM: Female, 77 years old. Alteration of awareness TECHNIQUE: A single frontal view of the chest was obtained. COMPARISON: Chest CT dated January 10, 2017 FINDINGS: The lungs are underaerated. There are minimal increased markings in both lung bases. There is no demonstrated pleural abnormality. The cardiac silhouette is normal in size. The mediastinum and hilar regions are unremarkable. Normal visualized pulmonary arteries. There is atherosclerotic tortuosity of the thoracic aorta. There are diffuse degenerative changes of the visual ized spine. The visualized ribs, clavicles, and shoulders are unremarkable. There are surgical clips in the left axilla. RAD/Chest 1 View (Port able) IMPRESSION: No acute cardiopulmonary abnormalities. There is minimal bibasilar atelectasis. Electronically Signed: Nasrin Orta MD at 17:17 EDT Tel Direct: [phone], Service s upport , CC: Jose May MD; Tayla Espinal DO Center Receptionist: Signed 08-Sep-2017 Abdomen/Pelvis W IV Cont ONLY Result: Comments: See Note; NOTES: [facility] Imaging Services [address] [place] [address] Abdomen/Pelvis W IV Cont ONLY MR#: [id number] Acct: [id number] Name: ANNA BARRERA ep #: [id number] : 1940 F 77 From: Terence Calero MD PCP: Tayla Espinal DO Status: REG ER Study: Abdomen/Pelvis W IV Cont ONLY Date of Exam: 09/08/17 Exam# [id number] Ordering Dr: Jose May MD STUDY: CT ABDOMEN AND PELVIS WITH CONTRAST REASON FOR EXAM: Female, 77 years old. N/V, WEAKNESS, VOMITTING, HX LT BREAST CA RADIATION DOSAGE (If Supplied By Facility): CTDIvol = ( 11.80 ) mGy, D LP = ( 728.53 ) mGycm TECHNIQUE: Transaxial images were obtained from the dome of the diaphragm to the symphysis pubis without oral contrast. 100 ml of Isovue 300 contrast was administered. Sagittal an d coronal images were reconstructed. Individualized dose optimization techniques were used for this CT. COMPARISON: None. FINDINGS: The visualized lung bases demon strate subsegmental atelectasis. The visualized portions of the heart are within normal limits. Multiple decrease attenuation lesions are seen in the liver the largest is in segment #7 measures 1 cm ar e consistent with benign cysts. Normal gallbladder and extrahepatic biliary system. Normal spleen. Normal pancreas. Normal bilateral adrenal glands. Normal right kidney. Normal left kidney. There is a small hiatal hernia. Normal small intestine. Normal colon. There is non-visualization of the appendix. Normal abdominal aorta. Normal inferior vena cava. Normal retroperitoneum. Normal urinary bladd er. Normal abdominal wall. There are diffuse degenerative changes and demineralization of the visualized lumbar spine. CT/Abdomen/Pelvis W IV Co nt ONLY IMPRESSION: Multiple decrease attenuation lesions are seen in the liver the largest is in segment #7 measures 1 cm are consistent with benign cysts. Electronically Signed: Terence Calero MD 201 01/19/23 at 15:42 EDT Tel , Service support , CC: Jose May MD; Tayla Espinal DO Center Receptionist: Signed 23-Aug-2017 Surgery Visit Report Result: Comments: See Note; NOTES: [facility] [address] [place] [address] OFFICE VISIT Date of Service: 08/23/17 MR#: [id number] Acct: [id number] Name: ANNA BETANCOURT Rep #: [id number] : 1940 Provider: Stacey Garcia Age/Sex: 77/F Location: [facility] Status: Signed Intake Intake Visit Reasons: F/U MASTECTOMY/CEBUL Kosher Dietary Service Manager Required: No Is patient in pain?: No Allergies shellfish derived Allergy (Verified 08/23/17 10:46) Hives tetracycline [Tetracycline] Allergy (Verified 08/23/17 10:46) Other alcohol Adverse Reaction (Verified 10:46) Unknown Medications Lorazepam [Ativan] 0.25 mg PO TID PRN PRN 07/14/13 [History Confirmed 08/23/17] Metoprolol Tartrate [Lopressor (beta mike)] 50 mg PO BIDCM 07/14/13 [History Confi rmed 08/23/17] Diltiazem HCl [Diltiazem ER] 180 mg PO DAILY 01/10/17 [History Confirmed 08/23/17] Acetaminophen [Tylenol Tablet] 650 mg PO Q6H PRN PRN #30 tab 01/12/17 [Rx Confirmed 08/23/17] Levothyrox ine [Synthroid] 125 mcg PO DAILY 06/15/17 [History Confirmed 08/23/17] mastectomy bra 1 ea TOPICAL DIRECTED #4 ea 07/12/17 [Rx Confirmed 08/23/17] Loperamide HCl [Imodium A-D] 2 mg PO 4X/DAY PRN PRN #30 tab 07/15/17 [Rx Confirmed 08/23/17] Metronidazole 1 applic TP DAILY PRN PRN 07/15/17 [History Confirmed 08/23/17] Ondansetron [Zofran Odt] 8 mg PO Q8H PRN PRN 07/15/17 [History Confirmed 08/23/17] PFSH Medical History Left breast mass (Acute) Hypothyroidism (Chronic) History of pericardial effusion (Chronic) History of viral pericarditis (Chroni c) History of atrial fibrillation (Chronic) Surgical History Status post gamma knife treatment (Acute) History of modified radical mastectomy of left b reast (Acute) S/P breast biopsy (Acute) S/P pericardial surgery (Acute) Family History Father Diabetes Hypertension CVA (cerebral vascular accident) Sis ter Asthma Diabetes Hypertension Arthritis Osteoporosis Lung disease Social History Smoking Status: Former smoker second hand exposure: No alcohol intake: never substance use type: does not use wh at type of physical activity do you participate in: none frequency: does not exercise seatbelt use: always HPI HPI HPI: ANNA BARRERA, is a 77 F I am following for metastatic left breast canc er. Patient returns for a follow-up visit. She was noted to have a lump in her left axilla 6 weeks ago. She notes this has since resolved. She notes minimal amount of discomfort/pain. She denies feeling a mass. She notes weakness of her right hand and lower extremity. She had an MRI of her brain which demonstrated a metastatic brain cancer. She was treated with Gamma Knife treatment at [facility] [place] . She will have a follow up MRI in September. Exam Chest Other: Left chest incision- very nicely healed. No signs of infection noted. No axillary lump/hematoma noted in the left axilla. Assessment AND Plan Problems 1. History of modified radical mastectomy of left breast Z98.890; Z90.12 2017 Plan - Follow-up after imaging of right breast with Dr. Merritt Coding Level of Care Code Global Post Op Diagnoses History of modified radical mastectomy of left breast Z98.890; Z90.12 08/23/17 1401 <Electronically signed by Stacey Pizano PA-C> Date Stacey Pizano PA-C Cosigner Signature: Date (if applicable) CC: 31-Jul-2017 Brain W/WO Contrast Result: Comments: See Note; NOTES: [facility] Imaging Services [address] [place] [address] Brain W/WO Contrast MR#: [id number] Acct: [id number] Name: ANNA BARRERA Rep #: [id number] : 1940 F 77 From: Glenn Taylor DO PCP: Tayla Espinal DO Status: REG CLI Study: Brain W/WO Contrast Date of Exam: 07/31/17 Exam# [id number] Ordering Dr: Ky Burkett DO STUDY: MR I BRAIN WITH AND WITHOUT CONTRAST REASON FOR EXAM: Female, 77 years old. The patient is status post recent mastectomy with known metastatic disease, complaining of right-sided weaknes s x12 days. TECHNIQUE: Standardized multiplanar fat and water weighted pulse sequences were obtained. 7 ml of Gadavist contrast material was administered intravenously for the contrast portion of the e xamination. COMPARISON: None. FINDINGS: There is an enhancing intraparenchymal mass lesion within the posterior left frontal lobe measuring 11 x 15 x 13 mm (AP x tr ansverse x craniocaudal). There is extensive surrounding vasogenic edema extending to the cortical ritter-white matter junctions into the posterior lateral horn of the left lateral ventricle. There is mil d mass effect with inferior displacement of the left lateral ventricle and with a 3 mm [id number]-lj-[id number] shift of the septum pellucidum (coronal T2 series 10, image 14). The white matter edema extends to th e precentral gyrus of the left frontal lobe (axial T2 series 6, image 20). There are no additional enhancing intracranial lesions. Review the patient's history, the findings are most compatible with a s olitary intracranial metastasis. There are a limited number of small white matter hyperintensities, distributed throughout the deep white matter tracts of the cerebral hemispheres, consistent with mild chronic white matter ischemic changes. There is no evidence for recent intracranial ischemia or other cause of cytotoxic edema on diffusion weighted imaging (DWI). Normal T2* images of the brain withou t demonstrated susceptibility artifact. There is no demonstrated hemosiderin stain. Normal bilateral basal ganglia. Normal thalami. There is no extra-axial fluid accumulation. Normal flow voids within the major intracranial circulation suggesting patency by spin echo criteria. Normal venous enhancement. Normal sella turcica, pituitary gland, infundibular stalk, optic chiasm and hypothalamus. Normal tectal plate and pineal gland. There are chronic white matter ischemic changes of the thong. The midbrain and medulla are otherwise normal. Normal cerebellum. Normal basal cisterns. Normal bilateral te mporal bones. Normal bilateral internal auditory canals. There is deformity of the bilateral globes with thinning and bulging of the sclera posteriorly consistent with posterior staphyloma (axial T2 se nadja 6, image 9). Normal visualized paranasal sinuses. Normal calvarium and skull base. Normal visualized soft tissue structures. Normal visualized upper cervical spine. ___ MRI/Brain W/WO Contrast IMPRESSION: 1. 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 2. Mild chronic white matter ischemic changes of the supratentorial brain and thong. 3. 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 4. No acute or evolving ischemic process. Electronically Signed: Glenn MacAlondra Taylor DO at 13:48 EST Tel , Service support , CC: Tayla Espinal DO; Ky Burkett DO Center Receptionist: Signed 24-Jul-2017 Inital Evaluation (1) - PT Result: Comments: See Note; NOTES: [facility] [address] [place] [address] Fax REHABILITATION SERVICES INITIAL EVALUATION MR#: [id number] Acct: [id number] Name: ANNA BARRERA Rep #: [id number] : 1940 77 From: Amelie Rodriguez DPT Referring Dr.: Stacey Pizano PA-C Status: REG RCR Insurance: [facility] MEDICARE A ONLY Patient's Visit Information ANNA BARRERA is a 77 year old F referred to Physical Therapy by Stacey GARCIA with a diagnosis of Left Breast Cancer. Date of Evalua tion: 07/24/17 Physical Therapist: Amelie Rodriguez - Visit Plan Frequency: 2x /Week Duration: 6 Weeks Plan: Focus on LE and core s/s and functional mobility. - Subjective Subjective: January 10, 2017 foun d a tumor which started bleeding - went to ER- admitted for [address] Paredes and Dr. Merritt. Sent her to [place]- which she lived in until Monday. Chemo 8x- CT scans- mets on the right lowe r lobe of the lung- Chest wall, fascia, muscle of the chest. Will have another scan at [facility] next monday. Does not have to have radiation. June 22 masectomy left breast. Sees Dr. Hahn every 2 weeks. Moved home July 19- hard to not be around people a lot. Was given exercises after surgery. Sees Dr. Espinal this afternoon. She has very little pain. But does have some knee problems and weakness/fatigue. Goals are to get stronger- is doing more but is tired. - Objective Posture: FH, RS, Increased kyphosis. Gait: slightly antalgic- decreased stance on the left LE with. SLS: unable to SLS but will weight shift. HR/TR: able. ROM: WFL. Strength: Ankle: 4+/5, Knee: 4/5, Hip: 4/5 Core: poor - Goals Goal 1:: Patient will be I with HEP and progression Goal Time Frame: 4-6 Weeks Goal 2 :: Patient will ambulate >800 feet with no SOB to demonstrate increased endurance Goal Time Frame: 4-6 Weeks Goal 3:: Patinet will demo 4+/5 strength in LE where deficit Goal Time Frame: 4-6 Wee ks Goal 4:: Patient will maintain proper posture t/o tx session to demo increased core s/s. Goal Time Frame: 4-6 Weeks - Rehabilitation Potential Physical Therapy Diagnosis: Patient presents with hypom obility- she has decreased strength and muscular endurance s/p cancer diagnosis with masectomy and chemotherapy leading to inability to perform normal ADl's Rehabilitation Potential: Fair - Anticipated Interventions Patient/Client Instruction: Educate patient on: Benefits of Fitness Program For the Purpose of:: To increase tolerance to activity/condition/position Therapeutic Exercise to Include: Stre ngth training, Endurance training, Body mechanics, Postural training, Dynamic Lumbar Stabilization, Scapular Strength/Stabilization For the Purpose of:: To improve muscle performance and motor function TENS: No Cryotherapy (ice pack, ice massage): Yes Thermo therapy (hot pack): Yes Ultrasound (thermal/non thermal): No For the Purpose of:: To decrease pain Thank you for the opportunity to evaluate your patient. For Medicare and Medicare HMO plans, please review the plan of care and approve it. It will need to be FAXED BACK to us at [phone] for Medicare purposes. Please let me know if ther e are questions or concerns regarding this plan of care. Physician Signature: Date: <Electronically signed by Amelie Rodriguez DPT&am p;#62; 02/05/18 1027 CC: Stacey Pizano PA-C; Tayla Espinal DO ELR Signed For Medicare only, by signing this I certify the plan of care. _ Physicians Signature Date 15-Jul-2017 Discharge Instruction Result: Comments: See Note; NOTES: [facility] Medical Records Department [address] [place] [address] Discharge Instruction 07/15/17 1045 MR#: [id number] Acct: [id number] Name: ANNA PEREZ Rep #: [id number] : 1940 77 From: Tre Mcguire DO PCP: Tayla Espinal DO Status: REG ER ED Disposition - Plan for ED Patient: Chief Complaint: Diarrhea Instructions: ED Gastroen teritis Report Pend Prescriptions: Loperamide HCl [Imodium A-D] 2 mg PO 4X/DAY PRN PRN #30 tab PRN Reason: Diarrhea Referrals: Tayla Espinal DO [Primary Care Provider] - 3-5 Days What to do if you have Problems For any increased pain, shortness of breath, bleeding, nausea or vomiting, chest pain, or any unexpected problems, contact your Primary Care Provider. Call [facility] ([phone] ) or report to the closest Emergency Room. Call 911 if necessary. 07/15/17 1047 <Electronically signed by Tre Mcguire DO> Date Tre wahl DO Cosigner Signature (If Indicated): Date CC: Tayla Espinal DO 15-Jul-2017 Emergency Department Summary Result: Comments: See Note; NOTES: [facility] Medical Records Department [address] [place] [address] Emergency Department Summary 07/15/17 1042 MR#: [id number] Acct: [id number] Name: ANNA BARRERA Rep #: [id number] : 1940 77 From: Tre Mcgiure DO PCP: Tayla Espinal DO Status: REG ER - ER Visit Summary Date of Service: 07/15/17 Chief Complaint: [Diarrhea] History of Present Illness: The patient is a 77 F [presents to the emergency department with symptoms of diarrhea that started this morning around 7 AM. Patient states she has had 3-4 watery stools. Patient is from [facility]. Patient denies any abdominal pain or blood in her stool. Patient has not been on antibiotics recently. She denies recent travel. Patient was concerned because sh e had breast cancer with left mastectomy and had chemotherapy 3 months ago. Patient has a history of hypothyroidism and history of atrial fibrillation however she is not currently on a blood thinner. Colt beardrobinson denies any fevers. She was told at the [facility] that her temperature was 99.2 and it was normal on arrival in the emergency department.] Physical Examination: [HEENT-PERRLA, EOMI. Cranial nerves II through XII grossly intact. TMs clear. Mucous membranes moist. No adenopathy. Cardiovascular-regular rate and rhythm without murmur or ectopy Lungs-clear to auscultation, chest wall stable without crepitus or subcu emphysema Abdomen-normoactive bowel sounds, soft, nontender, no rebound or rigidity, no peritoneal signs. Extremities- intact 4, normal range of motion, normal pulses, atraumatic] Test Results: [CBC with differential obtained showed a white blood cell count 5.2, hemoglobin 11, hematocrit 35, platelets 212. Chemistries were normal. Orthostatic vital signs were negati ve. Stool was ordered for C. difficile and enteric pathogens however patient was unable to produce a sample here.] Emergency Department Course and Treatment: [Patient was given a liter normal saline fl uid bolus.] Treatment Plan: [I discussed case with Dr. Kc who was covering for Dr. Ky Burkett at the request of the patient. I will also attempt to contact patient's primary care physician to discuss. I feel patient can be safely discharged back to the assisted living facility. I will write her an outpatient order form to bring in a stool sample for C. difficile and enteric pathogens. Patient will b e given a prescription for Imodium.] Disposition: [Discharged to home in stable condition] Impression: [Diarrhea] This note was generated with [employer] dictation software. It may contain incorrect wo rds, spelling, and punctuation that were not noted in review of the chart prior to signing ED Disposition - Plan for ED Patient: Chief Complaint: Diarrhea Referrals: Tayla Espinal DO [Primary Care Provider] - What to do if you have Problems For any increased pain, shortness of breath, bleeding, nausea or vomiting, chest pain, or any unexpected problems, contact your Primary Care Provider. [facility] ([phone]) or report to the closest Emergency Room. Call 911 if necessary. 07/15/17 1045 <Electronically signed by Tre Mcguire DO> Date Tre Mcguire DO Cosigner Signature (If Indicated): Date CC: Tayla Espinal DO 13-Jul-2017 Surgery Visit Report Result: Comments: See Note; NOTES: [facility] [address] [place] [address] OFFICE VISIT Date of Service: 07/12/17 MR#: [id number] Acct: [id number] Name: ANNA BETANCOURT Rep #: [id number] : 1940 Provider: Stacey Garcia Age/Sex: 77/F Location: [facility] Status: Signed Intake Intake Visit Reasons: F/U MASTECTOMY/CEBUL Kosher Dietary Service Manager Required: No Is patient in pain?: Yes (Left Axilla) Pain scale (1-10): 3 Allergies shellfish derived Allergy (Verified 07/12/17 13:22) Hives tetracycline [Tetracycline] Allergy (Verified 07/12/17 13:22) Other a lcohol Adverse Reaction (Verified 07/12/17 13:22) Unknown Medications Lorazepam [Ativan] 0.25 mg PO TID PRN PRN 07/14/13 [History Confirmed 07/12/17] Metoprolol Tartrate [Lopressor (beta mike)] 50 mg PO BIDCM 07/14/13 [History Confirmed 07/12/17] Diltiazem HCl [Diltiazem ER] 180 mg PO DAILY 01/10/17 [History Confirmed 07/12/17] Acetaminophen [Tylenol Tablet] 650 mg PO Q6H PRN PRN #30 tab 7 [Rx Confirmed 07/12/17] Levothyroxine [Synthroid] 125 mcg PO MOTUWETHFRSA 06/15/17 [History Confirmed 07/12/17] Levothyroxine [Synthroid] 250 mcg PO CHAVEZ 06/15/17 [History Confirmed 07/12/17] mastectomy bra 1 ea TOPICAL DIRECTED #4 ea 07/12/17 [Rx Confirmed 07/12/17] PFSH Medical History Left breast mass (Acute) Hypothyroidism (Chronic) History of pericardial effusion (Chronic) History of viral pericarditis (Chronic) History of atrial fibrillation (Chronic) Surgical History History of modified r adical mastectomy of left breast (Acute) S/P breast biopsy (Acute) S/P pericardial surgery (Acute) Family History Father Diabetes Hypertension CVA (cere bral vascular accident) Sister Asthma Diabetes Hypertension Arthritis Osteoporosis Lung disease Social History Smoking Status: Former smoker second hand exposure: No alcohol intake: never substance use type: does not use what type of physical activity do you participate in: none frequency: does not exercise seatbelt use: always HPI HPI HPI: Patient returns for a follow-up from breast can er. Patient is overall doing well. She notes she does not have to have radiation. Patient noted a new left axillary lump which appeared on Monday. Patient notes the lump is tender to palpation otherwise does not bother her. She would like to return to physical therapy for her left shoulder. She denies incisional pain/discomfort. Previous history: ANNA BARRERA, is a 77 F I am following for left breast cancer. Dr. Merritt performed a left modified radical mastectomy on 2017. Patient tolerated the procedure well. 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 Changes consistent with presurgical treatment in both breast and lymph nodes. Multiple skin lesions consistent with seborrheic keratosis. Eleven out of 11 nodes negative for metast atic carcinoma. Tumor size 0.5 x 0.3 cm. Single focus of invasive carcinoma. Estrogen positive, 38%. Pathologic stage pT1a pN0 Mx. Patient denies incisional pain/discomfort. She notes fatigue however th is was present prior to the surgery. She denies nausea, vomiting. Appetite is slowly returning to normal. 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 Her left upper extremity ROM is fair. NOEL drain output was <35 cc over the last 24 hour period. Exam Const General: cooperative, healthy appearing, comfortable, no acute distress Ch est Other: Left chest incision- c/d/i. No erythema or infection noted. There is a palpable left axillary mass. It is mobile and tender to deep palpation. Assessment AND Plan Problems 1. 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 Mass of left axilla R22.32 Plan - Dr. Merritt also evaluated this patient - May return to therapy at [facility] - Prescription for mastectomy bras was provided - Follow-up in 6 weeks to re-evaluate the left axillary mass - Patient has had the opportunity to ask and have questions answered. 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 Breast location: lower inn er quadrant of breast Estrogen receptor status: positive Patient sex: female Laterality: left Mass of left axilla R22.32 07/13/17 0855 <Electronically signed by Stacey Pizano PA-C> Date Stacey Pizano PA-C Cosigner Signature: Date (if applicable) CC: Tayla Espinal DO; Ky Burkett DO 03-Jul-2017 Surgery Visit Report Result: Comments: See Note; NOTES: [facility] [address] [place] [address] [place] [address] OFFICE VISIT Date of Service: 06/27/17 MR#: [id number] Acct: [id number] Name: ANNA BETANCOURT Rep #: [id number] : 1940 Provider: Stacey Garcia Age/Sex: 77/F [place] [facility] Status: Signed Intake Intake Visit Reasons: F/U MASTECTOMY/CEBUL Chief Complaint: left mastectomy RC Kosher Dietary Service Manager Required: No Is patient in pain?: No Allergies shellfish derived Allergy (Verified 06/27/17 09:33) Hives tetracycline [Tetracycline] Allergy (Verified 06/27/17 09:33) Other a lcohol Adverse Reaction (Verified 06/27/17 09:33) Unknown Medications Lorazepam [Ativan] 0.25 mg PO TID PRN PRN 07/14/13 [History Confirmed 06/27/17] Metoprolol Tartrate [Lopressor (beta mike)] 50 mg PO BIDCM 07/14/13 [History Confirmed 06/27/17] Diltiazem HCl [Diltiazem ER] 180 mg PO DAILY 01/10/17 [History Confirmed 06/27/17] Acetaminophen [Tylenol Tablet] 650 mg PO Q6H PRN PRN #30 tab 7 [Rx Confirmed 06/27/17] Levothyroxine [Synthroid] 125 mcg PO MOTUWETHFRSA 06/15/17 [History Confirmed 06/27/17] Levothyroxine [Synthroid] 250 mcg PO CHAVEZ 06/15/17 [History Confirmed 06/27/17] [facility] Breast [facility] (Acute) Left breast mass (Acute) Hypothyroidism (Chronic) History of pericardial effusion (Chronic) History of viral pericardit is (Chronic) History of atrial fibrillation (Chronic) Candidiasis (Inactive) Surgical History History of modified radical mastectomy of left breast (Acut e) S/P breast biopsy (Acute) S/P pericardial surgery (Acute) Family History Father Diabetes Hypertension CVA (cerebral vascular accident) Sister Asthma Di abetes Hypertension Arthritis Osteoporosis Lung disease Social History Smoking Status: Former smoker second hand exposure: No alcohol intake: never substance use type: does not use what type of ph ysical activity do you participate in: none frequency: does not exercise seatbelt use: always HPI HPI HPI: ANNA BARRERA, is a 77 F I am following for left breast cancer. Dr. Merritt performed a left modified radical mastectomy on 2017. Patient tolerated the procedure well. 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 Changes consi stent with presurgical treatment in both breast and lymph nodes. Multiple skin lesions consistent with seborrheic keratosis. Eleven out of 11 nodes negative for metastatic carcinoma. Tumor size 0.5 x 0. 3 cm. Single focus of invasive carcinoma. Estrogen positive, 38%. Pathologic stage pT1a pN0 Mx. Patient denies incisional pain/discomfort. She notes fatigue however this was present prior to the surgery . She denies nausea, vomiting. Appetite is slowly returning to normal. 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 Her left upper extremity R OM is fair. NOEL drain output was <35 cc over the last 24 hour period. Exam Const General: cooperative, healthy appearing, comfortable, no acute distress Chest Other: Left chest incision- c/d/i . No erythema or infection noted. NOEL drain was prepped with alcohol, suture was removed entirely, and drain was pulled with tip intact. Dressing was placed over top. LUIS wrap was replaced. Assessment AND Plan Problems 1. 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; Z17.0 Plan - Continue range of motion exercises - Keep LUIS wrap in place un til next follow-up visit - No showering until NOEL drain site is completely closed - Follow-up in 2-4 weeks 07/03/17 1230 <Electronically signed by Stacey Pizano PA-C> Date _ Stacey Pizano PA-C Cosigner Signature: Date (if applicable) CC: Ky Burkett DO 21-Jun-2017 12 Lead Electrocardiogram Result: Comments: See Note; NOTES: [facility] Cardiovascular Services [address] [place] [address] 12 Lead EKG 06/17/17 1008 MR#: [id number] Acct: [id number] Name: ANNA BARRERA Rep #: [id number] : 1940 76 From: Delvin Coleman MD Attending Dr: Josh Merritt MD Status: PRE [facility] Ordering Dr: Josh Merritt MD Date: 06/17/17 Location: [facility] Sex: F C Admitted: Test Reason : P REOP Blood Pressure : / mmHG Vent. Rate : 075 BPM Atrial Rate : 075 BPM P-R Int : 168 ms QRS Dur : 096 ms QT Int : 386 ms P-R-T Axes : 041 -23 060 degrees QTc Int : 431 ms Normal sinus rhythm Bor derline ECG Confirmed by DELVIN COLEMAN MD ([id number]), society editor DANIELLE STAHL ([id number]) on 06/21/2017 3:06:43 PM Referred By: TOBY Confirmed By:DELVIN COLEMAN MD 06/21/17 1506 Date Delvin Coleman MD CC: Tayla Espinal DO Signed 01-Jun-2017 Surgery Visit Report Result: Comments: See Note; NOTES: [facility] [address] [facility] [address] [place] [address] OFFICE VISIT Date of Service: 05/30/17 MR#: [id number] Acct: [id number] Name: ANNA BETANCOURT Rep #: [id number] : 1940 Provider: Stacey Garcia Age/Sex: 76/F Location: [facility] Status: Signed Intake Vital Signs05/30/17 Height 5 ft 5 in 05/30/17 Weight: 145 lb Int grayson Visit Reasons: Update H AND P.el Kosher Dietary Service Manager Required: No Is patient in pain?: No Allergies tetracycline [Tetracycline] Allergy (Verified 05/30/17 10:42) Other alcohol Adverse Reaction (Verified 1 07/31/16 10:42) Unknown Medications Levothyroxine Sodium [Levoxyl] 88 mcg PO MOTUWETHFRSA 07/14/13 [History Confirmed 05/30/17] Lorazepam [Ativan] 0.25 mg PO TID PRN PRN 07/14/13 [History Confirmed ] Metoprolol Tartrate [Lopressor (beta mike)] 50 mg PO BIDCM 07/14/13 [History Confirmed 05/30/17] Diltiazem HCl [Diltiazem ER] 180 mg PO DAILY 01/10/17 [History Confirmed 05/30/17] Levothyroxi ne Sodium [Levoxyl] 176 mcg PO CHAVEZ 01/10/17 [History Confirmed 05/30/17] Acetaminophen [Tylenol Tablet] 650 mg PO Q6H PRN PRN #30 tab 01/12/17 [Rx Confirmed 05/30/17] PFSH Medical History (Reviewed @ 10:32 by Sharon Jaramillo) Left breast mass (Acute) Hypothyroidism (Chronic) History of pericardial effusion (Chronic) History of viral pericarditis (Chronic) History of atrial fibrillation (C hronic) Candidiasis (Inactive) Surgical History S/P breast biopsy (Acute) S/P pericardial surgery (Acute) Family History (Reviewed 05/30/17 @ 10:32 Gadiel Jaramillo) Father Diabetes Hypertension CVA (cerebral vascular accident) Sister Asthma Diabetes Hypertension Arthritis Osteoporosis Lung disease Social History Smoking Status: Former smoker second hand exposure: No alcohol intake: never substance use type: does not use what type of physical activity do you participate in: none frequency: does not exercise seatbelt use: always HPI HPI HPI: ANNA BARRERA, is a 76 F who I am following for left breast cancer with metastasis. Patient presents for an updated history and physical for upcoming procedure. Patient denies previous yehuda cardial infarction, stroke, and blood clots. She denies previous complications with anesthesia. She denies recent hospitalization or illness. Patient's previous history per Dr. Merritt: Kari compli cated 76-year-old female. She was referred by her [facility] [employer] Dr. Ky Burkett for surgical treatment of her left breast cancer. She was hospitalized at the [facility] January 10, 2017 becaus mac of uncontrolled bleeding from a large left breast tumor. A 6.2 x 7.3 x 7.7 cm vascular mass involving the majority of the left breast in the medial aspect was identified. Small left axillary lymph nod es were noted. Multiple nodules were observed in the right lower lobe of the lung the largest measuring 2.6 x 1.5 cm. A left breast biopsy was performed under ultrasound guidance showing poorly differen tiated ductal carcinoma with focal necrosis nuclear grade 3. Estrogen receptor 17% weak. Progesterone receptor 0. HER-2/nicko 0-1+ . The patient has been managed with Paxil with good results. She had a PI CC line in place in the right upper extremity that was recently removed. He is being referred now for a salvage left mastectomy. It is understood that post interventional radiation therapy will be recom mended as well. At this time of her CT scan involvement was noted and also concerned about involvement of the pectoralis muscle. The patient has requested my involvement.. It is of note that on January 172016 a whole body bone scan was performed there was no evidence of bony metastasis. A CT scan of the brain also failed to demonstrate any disease Laboratory as of March 15, 2017 shows hemoglobin 9.1 hematocrit 28.9 platelet count 231,000. At that time her BUN was 14 and creatinine 0.35 ROS General General: Yes weight change, fatigue and breast cancer; no appetite, colon cancer or weakness H EENT HEENT: No difficulty swallowing, eye injury, eye surgery, swollen glands or hoarseness Endo Endocrine: Yes thyroid disease; no diabetes mellitus, thyroid cancer, Hair loss, heat intolerance or cold intolerance Skin Skin: No rash or changing moles Musc Musculoskeletal: Yes arthritis; no back problems, rheumatoid arthritis, gout or joint pain Cardio Cardiovascular: Yes murmur, atrial fibrillation a nd high blood pressure; no pacemaker, heart disease, heart attack, heart stent, palpitations, shortness of breat with exertion or chest pain Psych Psychiatric: Yes depression and anxiety; no hearing voi jan Resp Respiratory: No shortness of breath, No sleep apnea, No cough, No COPD, No asthma, No emphysema, No wheezing Gastro Gastrointestinal: No abdominal pain, No nausea or vomiting, No diarrhea, No c onstipation, No blood in stool, No acid reflux, No hemorrhoids, No ulcers, No gallbladder problem, No black,tarry stools Heber Hematologic: No blood thinners, No blood disorders, No bleeding, Yes anemia, No blood clots Neuro Neurologic: No system reviewed and no additional complaints, except as docu, No as per HPI, No abnormal walking, No abnormal hearing, No abnormal movements, No abnormal speech, No behavioral changes, No burning sensations, No confusion, No seizure-like activity, No unsteadiness, No dizziness, No localized weakness, No frequent falls, No headache(s), No lack of coordination, No lo ss of vision, No memory loss, No numbness, No other visual disturbances, No radiating pain, No restless legs, No sensory deficit, No fainting, No tingling, No tremor(s), No weakness, No other Exam Con st General: cooperative, comfortable, no acute distress, other (hair loss secondary chemotherapy), ill appearing Neck Neck: normal visual inspection Chest Breast Palpation: Yes breast mass (8 x 7 x 8 cm mass with firmness in the upper outer quadrant ) lrb: Left Resp Effort AND Inspection: normal respiratory effort Auscultation: clear to auscultation bilaterally Cardio Rate: regular rate Rhythm: regula r rhythm Heart Sounds: murmur, S1 normal, S2 normal GI Inspection: obesity Palpation: soft Auscultation: normal bowel sounds Skin General: no rashes or lesions noted Extrem General: normal to inspection Psych Appearance: grossly normal Mental Status: mental status grossly normal Affect: normal affect Attitude: cooperative Assessment AND Plan Problems 1. Left breast mass N63.[address] Shaina espinosa p phyllis to perform a left palliative mastectomy. Patient has had the opportunity to ask and have questions answered. Patient verbally understands the procedure and agrees to proceed. 06/01/17 1116 &# 60;Electronically signed by Stacey Pizano PA-C> Date Stacey Pizano PA-C Cosigner Signature: Date (if applicable) CC: 30-Mar-2017 Emergency Department Summary Result: Comments: See Note; NOTES: [facility] Medical Records Department [address] [place] [address] Emergency Department Summary 03/15/172011 MR#: [id number] Acct: [id number] Name: ANNA BARRERA Rep #: [id number] : 1940 76 From: Munir Kennedy MD PCP: Tayla Espinal DO Status: DEP ER - ER Visit Summary Date of Service: 03/15/17 Chief Complaint: [] Right ankle pain and passed out. History of Present Illness: The patient is a 76 F [] here with family after concrete smoother arrival. Patient states that she stepped off along a curb today and exacerbated some pain she has b een having her right ankle for weeks. She said the pain shot up slightly toward the lateral side of the right ankle but not to her knee. Moderate discomfort mild at this time but severe initially weight bearing made it worse secondarily as she also has this cough but her chest x-ray was normal. The syncopal was while she was sitting allegedly just passed out and then woke back up which may have been a vasovagal reaction to her pain. She does have a history of left breast CA is on chemotherapy with her last dose 6 days ago also a history of atrial fibrillation hypothyroidism hypertension. No chest michelle n shortness of breath or palpitations Physical Examination: [] Patient vital signs were stable later her postural vital signs are stable. She is well- developed talkative losing her hair from chemo H AN D T otherwise normal mucous membranes slightly dry neck supple no adenopathy heart was regular distant but normal S1-S2 no wheezes rhonchi sensory muscle use. No sign of head face neck back pain on palp ation or trauma. Her extremities revealed no signs of trauma but she is slightly tender over the lateral malleolus and anterior talofibular and calcaneal fibular but no ecchymosis ,swelling , motor sens ory vascular intact. Test Results: [] Patient's EKG was sinus in the 80s with an LVH similar to previous EKGs her CBC and chemistries were stable except hemoglobin at 9.1 and was not elevated given a 5 00 cc fluid bolus feels much better and wants to go home her right ankle 3 views showed an anterior spur soft tissue swelling which incorrectly was noted above the dictation is absent but in fact I did see about a 1 to 2+ out of 4 plus edema. Emergency Department Course and Treatment: [] Patient's was hydrated was saline Aircast was placed. Follow-up with Dr. Donovan next week as planned. I spoke with Dr. Matthew he was comfortable with plan. Family is with her and is also comfortable with plan will watch her closely. The etiology of the syncope may be related to is a combination of factors of her dise ase her pain. She can return any time for any further syncopal episodes chest pain shortness of breath palpitations dizziness worse ankle pain is or tingling Treatment Plan: [] See above Disposition: [] Home Impression: [] #1 acute syncope, #2 acute right ankle lateral ligamentous sprain, #3 history of breast cancer ED Disposition - Plan for ED Patient: Disposition: Home or Assisted Living Chief Complaint: Lower Extremity Injury Instructions: ED Sprain Ankle W X Ray, ED Near Syncope Unkn Referrals: Tayla Espinal DO [Primary Care Provider] - Ky Burkett DO [STAFF PHYSICIAN] - Keep Jamee appoin tment What to do if you have Problems For any increased pain, shortness of breath, bleeding, nausea or vomiting, chest pain, or any unexpected problems, contact your Primary Care Provider. [facility] ([phone]) or report to the closest Emergency Room. Call 911 if necessary. 03/30/17 0105 <Electronically signed by Munir Kennedy MD> Date Munir Reavesigner Signature (If Indicated): Date CC: Tayla Espinal DO 17-Mar-2017 12 Lead Electrocardiogram Result: Comments: See Note; NOTES: [facility] Cardiovascular Services [address] [place] [address] 12 Lead EKG 03/15/171406 MR#: [id number] Acct: [id number] Name: ANNA BARRERA Rep #: [id number] : 1940 76 From: Delvin Coleman MD Attending Dr: Status: DEP ER Ordering Dr: Munir Kennedy MD Date: 03/15/17 Location: ED Sex: F C Admitted: Test Reason : L.EXTREMITY Blood Pres sure : / mmHG Vent. Rate : 080 BPM Atrial Rate : 080 BPM P-R Int : 160 ms QRS Dur : 096 ms QT Int : 400 ms P-R-T Axes : 028 -17 028 degrees QTc Int : 461 ms Normal sinus rhythm Voltage criteria f or left ventricular hypertrophy Abnormal ECG Confirmed by DELVIN COLEMAN MD ([id number]), society editor DANIELLE STAHL ([id number]) on 03/17/2017 2:36:13 PM Referred By: DOUGIE Confirmed By:DELVIN COLEMAN MD 03/17/17 1436 Date Delvin Coleman MD CC: Tayla Espinal DO Date Dictated: 03/15/171406 Date Transcribed: 03/15/171406 Center Receptionist: Signed 15-Mar-2017 Emergency Department Summary Result: Comments: See Note; NOTES: [facility] Medical Records Department [address] [place] [address] Emergency Department Summary 03/15/17 1528 MR#: [id number] Acct: [id number] Name: ANNA BARRERA Rep #: [id number] : 1940 76 From: Munir Kennedy MD PCP: Tayla Espinal DO Status: REG ER - ER Visit Summary Date of Service: 03/15/17 Chief Complaint: [] History of Prese nt Illness: The patient is a 76 F [] Physical Examination: [] Test Results: [] Emergency Department Course and Treatment: [] Treatment Plan: [] Disposition: [] Impression: [] ED Disposition - P phyllis for ED Patient: Chief Complaint: Lower Extremity Injury Instructions: ED Sprain Ankle W X Ray, ED Near Syncope Unkn Referrals: Tayla Espinal DO [Primary Care Provider] - Ky Burkett DO [STAFF OLAYINKA BOND] - Keep Jamee appointment What to do if you have Problems For any increased pain, shortness of breath, bleeding, nausea or vomiting, chest pain, or any unexpected problems, contact your Primary Care Provider. Call [facility] ([phone]) or report to the closest Emergency Room. Call 911 if necessary. 03/15/17 1530 <Electronically signed by Munir Kennedy MD> Date Munir Kennedy MD Cosigner Signature (If Indicated): Date CC: Tayla Espinal DO 15-Mar-2017 Ankle min 3 Views Result: Comments: See Note; NOTES: [facility] Imaging Services [address] [place] [address] Ankle min 3 Views MR#: [id number] Acct: [id number] Name: ANNA BARRERA Rep #: [id number] : 1940 F 76 From: Asa Verma MD PCP: Tayla Espinal DO Status: REG ER Study: Ankle min 3 Views Date of Exam: 03/15/17 Exam# [id number] Ordering Dr: Munir Kennedy MD STUDY: X-RAY - RIGHT ANKLE REASON FOR EXAM: Female, 76 years old. One-week history of medial and lateral pain. No history of injury. TECHNIQUE: 3 view(s) of the ankle. COMPARISON: None. FINDINGS: Normal visualized distal tibia and fibula. Normal medial and lateral malleoli. Normal tibiotalar articulation and ankle mortise. Plantar spur. The visualized subtalar, talonavicula r, calcaneocuboid and tarsal articulations are normal. Soft tissue swelling. RAD/Ankle min 3 Views IMPRESSION: Plantar spur. Soft tissue swellin g. Electronically Signed: Asa Verma MD at 14:22 EDT Tel [phone], Service support , CC: Munir Kennedy MD; Tayla Espinal DO Center Receptionist: Signed 06-Feb-2017 Emergency Department Summary Result: Comments: See Note; NOTES: [facility] Medical Records Department [address] [place] [address] Emergency Department Summary 02/06/17 1134 MR#: [id number] Acct: [id number] Name: ANNA BARRERA Rep #: [id number] : 1940 76 From: Srinivas Gabriel MD PCP: Tayla Espinal DO Status: DEP ER - ER Visit Summary Date of Service: 02/06/17 Chief Complaint: Wound check Hist ory of Present Illness: The patient is a 76 F presenting due to concern for a wound infection. Patient has a history of a fungating left breast mass that is been complicated by having bleeding on dressi ng changes. [facility] staff was concerned for the possibility of infection so she was sent to the emergency department for evaluation. Patient denies any fevers. She does report that she has a fungal rash underneath her breast. Review of systems otherwise negative. Physical Examination: Physical exam notable for left breast examination. Patient has a large fungating ulcerated breast mass of the le ft breast. When dressings were taken down there was moderate amount of capillary bleeding, but no evidence of arterial bleeding. No evidence of infection of the wound, there was evidence of some candidi asis along the inferior breast line. Test Results: None indicated Emergency Department Course and Treatment: Patient presented for a wound check. I do not believe that there is bacterial infection at this point. Patient's bleeding was moderate and was not initially controlled so I did put Gelfoam over top of the areas that were continuing to bleed and we obtained good hemostasis. This point the americo ent has significant amount of trouble getting her dressing changes by the staff at her residential and requested referral to wound care. I contacted wound care and arrange this. Patient was discharged. Disposition: Discharge Impression: Candidiasis left chest Fungating breast mass ED Disposition - Plan for ED Patient: Disposition: Home or Assisted Living Chief Complaint: Wound Diagnosis: Candidi asis Instructions: ED Candidiasis Cutaneous Prescriptions: Clotrimazole [Lotrimin] 1 applicatio TOPICAL BID #1 tube Referrals: Tayla Espinal DO [Primary Care Provider] - Additional Instructions: Fol low-up with wound care [phone] What to do if you have Problems For any increased pain, shortness of breath, bleeding, nausea or vomiting, chest pain, or any unexpected problems, contact your [facility] Care Provider. Call [facility] ([phone]) or report to the closest Emergency Room. Call 911 if necessary. 02/06/17 0212 <Electronically signed by Srinivas Gabriel MD> Da te Srinivas Gabriel MD Cosigner Signature (If Indicated): Date CC: Tayla Espinal DO 10-Jan-2017 Chest WITH Contrast Result: Comments: See Note; NOTES: [facility] Imaging Services [address] [place] [address] Verdana 4d Chest WITH Contrast MR#: [id number] Acct: [id number] Name: ANNA BARRERA Rep #: [id number] : 1940 F 76 From: Asa Verma MD PCP: Kylie Tayla Status: REG ER Study: Chest WITH Contrast Date of Exam: 01/10/17 Exam# [id number] Ordering Dr: Nasrin Lizama STUDY: CT CHEST WITH CONTRAST REASON FOR EXAM: Female, 76 years old. Bleeding from the left breast. RADIATION DOSAGE (If Supplied By Facility): CTDIvol = ( 29.24 ) mGy, DLP = ( 639.9 ) mGycm TECH NIQUE: Transaxial imaging was performed following intravenous administration of 100 ml of Isovue 300 contrast material. Multiplanar coronal and sagittal images were reformatted. Individualized dose opt imization techniques were used for this CT. COMPARISON: None. FINDINGS: There is a 6.2 cm x 7.3 cm x 7.7 cm inhomogeneous vascular mass involving the majority of th e left breast along the medial aspect. There is diffuse overlying skin thickening. There is also evidence of increased markings in the lateral portion of the breast. Lymphangitic spread should be ruled out. There are small left axillary lymph nodes. Multiple nodules are seen in the right lower lobe. The largest measures 2.6 cm x 1.5 cm. Increased markings are seen at the lung bases to just above the bibasilar atelectasis and/or scarring. There is no demonstrated pleural abnormality. Normal heart and pericardium. Normal mediastinum. Normal hilar regions. Normal enhanced pulmonary arteries. There i s atherosclerotic calcification of the aortic arch . There are multi-level degenerative changes of the thoracic spine. There is no demonstrated abnormality of the visualized upper abdomen. CT/Chest WITH Contrast IMPRESSION: Large inhomogeneous vascular left breast mass with overlying skin thickening and increased markings suggestive of lymphan gitic spread. Pulmonary nodules seen in the right lower lobe. Electronically Signed: Asa Verma MD at 10:40 EDT Tel [phone], Service support , CC: Nasrin Lizama MD; Tayla Espinal DO Center Receptionist: Signed 03-Jul-2015 PT D/C Summary Result: Comments: See Note; NOTES: [facility] [address] [place] [address] Fax REHABILITATION SE RVICES DISCHARGE SUMMARY MR#: [id number] Acct: [id number] Name: ANNA BARRERA Rep #: [id number] : 1940 75 From: Amelie Rodriguez Referring Dr.: Elizabeth Villanueva Status: REG RCR Eval Date : Discharge Date: HP - PT D/C Summary It has been my pleasure to treat ANNA BARRERA under orders from Elizabeth Villanueva, for the diagnosis of Right Knee Pain for a total of 16 visit(s). Pleas e see the following information for a summary of their discharge status. - Subjective Subjective: Patient reports that she feels very good. 85% better then initial evaluation. Knee has no pain and hip is only slightly sore. All of her problems have cleared up 85-90%. Wants to keep doing what she has been doing so it doesnt come back. She is planning on continuing with a personal lines advisor and dileep robledo. - Objective Objective/Function: Patient has made excellent progress through physical therapy. Posture: good throughout. Gait: mildy deviated with hip drop-no AD-good control of the knee. Palpa tion : not tender. ROM: WNL. Strength: Core-fair Hip:4+/5 Knee:5/5, Ankle:5/5 - Goals Goal 1:: Patient will be I with HEP and progression Goal Progress: Goal Met Goal 2:: Patient will demo 4+/5 thr oughout LE where deficit to ease ADL's. Goal Progress: Goal Met Goal 3:: Patient will return to all normalized actvities with 0/10 pain. Goal Progress: Goal Met - Plan Plan: Discharge to I home ex ercise program - D/C Information Discharge Comments: Discharge to I home exercise program If there are questions or concerns regarding this patient's physical therapy, please feel free to call me a t [phone]. Thank you for the referral of this patient. Sincerely, Amelie Rodriguez <Electronically signed by Amelie Rodriguez > 07/03/15 1031 CC: Elizabeth Villanueva; Tayla Espinal DO ELR Signed 10-Jun-2015 Re-Evaluation - PT Result: Comments: See Note; NOTES: [facility] [place], [place] [address] Fax [facility] MR#: [id number] Acct: [id number] Name: ANNA BARRERA Rep #: [id number] : 1940 74 From: Amelie Rodriguez Referring Dr.: Elizabeth tong: REG RCR Insurance: ANTHCALVIN Villanueva, It has been my pleasure to treat ANNA BARRERA over the last 10 visits for Right Knee Pain. Please see the progress note below for an upda te on the physical therapy plan of care! Subjective: Patient reports that she is good- very little knee pain today 06/28. Nervous about 5 days off with the holiday. Patient reports that she is 60% bett er. Mild pain the hip and knee , is walking more normally. Wants to be able to walk a mile. Patient reports that she feels safer in her slippers. Objective/Function: Posture: FH, RS, Increased kyphosi s. Gait: mildly antalgic- hip hike on the left. Strength:4+/5 throughout LE- Core-fair minus. ROM: WFL Plan Plan: Cont with POC Goals Goal 1:: Patient will be I with HEP and progression Goal Dameon e Frame: 4-6 Weeks Goal Progress: Progressing Goal 2:: Patient will demo 4+/5 throughout LE where deficit to ease ADL's. Goal Time Frame: 4-6 Weeks Goal Progress: Progressing Goal 3:: Patient will return to all normalized actvities with 0/10 pain. Goal Progress: Progressing Anticipated Interventions Patient/Client Instruction: Educate patient on: Benefits of Fitness Program Therapeutic Exerc ise to Include: Strength training, Endurance training, Body mechanics, Postural training, Flexibilty training, Gait and locomotor training, Dynamic Lumbar Stabilization TENS: Yes Cryotherapy (ice pa ck, ice massage): Yes Thermo therapy (hot pack): Yes Ultrasound (thermal/non thermal): Yes Please do not hesitate to contact me at [phone] by phone or if you have questions or concerns regarding this new plan of care! Sincerely, Amelie Rodriguez <Electronically signed by Amelie Rodriguez > 06/10/15 1058 CC: Elizabeth Espinal DO ELR Signed For Medicare only, by signing this I certify the plan of care. Physicians Signature Date 19-May-2015 Inital Evaluation - PT Result: Comments: See Note; NOTES: [facility] [address] [place] [address]. [address] [place] [address] Fax REHABILITATION [facility] INITIAL EVALUATION MR#: [id number] Acct: [id number] Name: ANNA BARRERA Rep #: [id number] : 1940 74 From: Amelie Rodriguez Referring DrAlondra: Elizabeth Villanueva Status: REG RCR Insuranc e: KRISTEL Pike Date: Patient's Visit Information ANNA BARRERA is a 74 year old F, referred to Physical Therapy by Elizabeth Villanueva,, with a diagnosis of Right Knee Pain. Date of Evaluation: 05/19/15 Physical Therapist: Amelie Rodriguez - Visit Plan Frequency: 3x /Week Duration: 2 Weeks - Subjective Middle of March 2.5 miles walking got a audrey horse in the calf- point when she ne eded to sit down. Massage the next day and then a few days later the right knee started to hurt. Mainly in the medial side of the knee-Pain radiates into the hamstring and audrey horses in her calf. Worst: 7/10, Best: 3/10- Dull and Achy- Constant. No N/T. Agg: being up on it, sitting to long, sharp turns, walking long distances. Eases: ibuprofen, yoga stretching, warm water, pedicure. Sleep-dis turbed- will wake her up but uses oil and it goes away-right sided sleeper-no pillow between the knees. Massage therapist has been working on her right hip. Works out 3x a week-whole program of stuff- leg press, hamstring curls, hip abd/add, 10 min bike and 10 min Nustep. Yoga daily in the AM and meets with a english composition instructor 1x a week. - Objective Posture: FH, RS, Increased kyphosis- can correct with VC's. Gait: antalgic- decrease stance on the right LE- Trendelenburg. Observation: Leg length discrepancy-right is 1/4 in shorter then left. Special Test: HR/TR able with pain in calf, Stairs-non recip with 2 HR. Balance: unable to SLS due to pain in right LE. Palpation: tender along calf and medial joint line. ROM:10 degrees from neutral to 120 degrees of flexion with increased pain with end ranges. Strength: Ankle: 5/5, Knee:4+/5, Hip:flexion/adduction-4/5, IR/ER: 3+/5, Add/extn-4/5, Core-fair minus. Flexibility: HS-mod, Gastroc-mod, Solues-mod - Goals Goal 1:: Patient will be I with HEP and progression Goal Time Frame: 4-6 Weeks Goal 2:: Patient will demo 4+/5 throughout LE where deficit to ease ADL's. Goal Time Frame: 4-6 Weeks Goal 3:: Patient will return to all normalized ac tvities with 0/10 pain. - Rehabilitation Potential Physical Therapy Diagnosis: Right Knee Pain Rehabilitation Potential: Fair - Anticipated Interventions Patient/Client Instruction: Educate patie nt on: Benefits of Fitness Program For the Purpose of:: To increase tolerance to activity/condition/position Therapeutic Exercise to Include: Strength training, Endurance training, Body mechanics, Po stural training, Flexibilty training, Gait and locomotor training, Dynamic Lumbar Stabilization For the Purpose of:: To improve muscle performance and motor function TENS: Yes Cryotherapy (ice pack, ice massage): Yes Thermo therapy (hot pack): Yes Ultrasound (thermal/non thermal): Yes For the Purpose of:: To decrease pain Thank you for the opportunity to evaluate your patient. For Medica re and Medicare HMO plans, please review the plan of care and approve it. It will need to be FAXED BACK to us at [phone] for Medicare purposes. Please let me know if there are questions or conc erns regarding this plan of care. Physician Signature: Date: <Electronically signed by Amelie Rodriguez > 05/19/15 1445 CC: Elizabeth Espinal DO ELR Signed For Medicare only, by signing this I certify the plan of care. Physicians Signature Date 11-May-2015 Knee 4 or More Views Result: Comments: See Note; NOTES: [facility] Imaging Services [address] [place] [address] Verdavangie 4d Knee 4 or More Views MR#: [id number] Acct: [id number] Name: ANNA PRICE Rep #: [id number] : 1940 F 74 From: Afshin Gant DO PCP: Tayla Espinal DO Status: REG CLI Study: Knee 4 or More Views Date of Exam: 05/11/15 Exam# [id number] Ordering Dr: Elizabeth Richards STUDY: X-RAY - RIGHT KNEE REASON FOR EXAM: Female, 74 years old. Knee pain. TECHNIQUE: 4 view(s) of the knee. COMPARISON: None. FINDINGS: There is demineralization of the visualized distal femur. There is demineralization of the tibia and fibula. Normal proximal tibiofibular articulation. There is no acute fracture, dislocation or destructive osseous pathology. There is mild degenerative arthrosis of the medial femorotibial compartment. Normal lateral femorotibial compartment. There is mild degenerative arthrosis of the patellofemoral articulation. There is no demonstrated joint effusion. The soft tissue structures are unremarkable. IMPRESSION: Degenerative arthrosis. Electronically Signed : Afshin Gant DO at 9:20 EST Tel [phone], Service support [phone], RAD/Knee 4 or More Views IMPRESSION: Degenerative arthrosis. Electro nically Signed: Afshin Gant DO at 9:20 EST Tel [phone], Service support [phone], CC: Elizabeth Villanueva; Tayla Espinal DO Center Receptionist: Signed 30-Oct-2014 Bilat Scrn Digital AND CAD Result: Comments: See Note; NOTES: [facility] Imaging Services [address] [place] [address] Breast Imaging Report MR#: [id number] Acct: [id number] Name: YADIGABINOTIFFANYANNAWill Mott p #: [id number] : 1940 F 74 From: Afshin Gant DO PCP: Tayla Espinal DO Status: REG CLI Study: Bilat Scrn Digital AND CAD Date of Exam: 10/30/14 Exam# [id number] Ordering Dr: Douglas Espinal DO MAMMOGRAPHY - BILATERAL SCREENING REASON FOR EXAM: Female, 74 years old. Routine annual screening examination. PERTINENT HISTORY: Non- contributory. TECHNIQUE: Digital examination. Medio lateral oblique (MLO) and craniocaudad (CC) views of both breasts were obtained. CAD: CAD was performed on this study. COMPARISON: February 04, 2013 and November 30, 2011. ____ FINDINGS: Breast Composition: The breasts are heterogeneously dense, which may obscure small masses. There are no dominant masses or suspicious calcifications. No other significant abnormal ities are identified. Stable bilateral calcifications are again noted. IMPRESSION: Stable bilateral screening mammogram. Yearly follow-up recommended. (A) ASSESSMENT CATEGORY: BIRADS Category 2: Benign. A letter regarding these results will be sent to the patient by the facility within 30 days. Approximately 10% of jennifer ast cancers are not detected by mammography. A normal mammogram should not delay biopsy of a clinically suspicious abnormality. Electronically Signed: Afshin Gant DO at 14:34 EDT Tel [phone], Service support [phone], CC: Tayla Espinal DO Center Receptionist: Signed 30-Oct-2014 Dexa Bone Density Study (HP) Result: Comments: See Note; NOTES: [facility] Imaging Services [address] [place] [address] Bone Density Report MR#: [id number] Acct: [id number] Name: ANNA BARRERA Rep #: [id number] : 1940 F 74 From: Asa Verma MD PCP: Tayla Espinal DO Status: [facility] CLI Study: Dexa Bone Density Study (HP) Date of Exam: 10/30/14 Exam# [id number] Ordering Dr: Tayla Espinal DO STUDY: DUAL ENERGY X-RAY ABSORPTIOMETRY / DXA REASON FOR EXAM: Female, 74 years old. The patient is postmenopausal. Loss of height. TECHNIQUE: Bone Mineral Density (BMD) measuremen ts of lumbar spine and bilateral hips were obtained. COMPARISON: None. FINDINGS: Lumbar Spine (L1-L4): g/cm2 (1.043) / T-score (-1.3) / Z-score (0.4) Finding s are suggestive of osteopenia with a low fracture risk. Left Femur Total: g/cm2 (0.674) / T-score (-2.6) / Z-score (-1.0) Left Femoral Neck: g/cm2 (0.731) / T-score (-2.2) / Z-score (-0.4) Right Fe mur Total: g/cm2 (0.587) / T-score (-3.3) / Z-score (-1.7) Right Femoral Neck: g/cm2 (0.611) / T-score (-3.1) / Z-score (-1.2) IMPRESSION: The patient is consid ered osteoporotic at the level of the femoral neck as outlined below according to World Dangelo Organization (WHO) criteria with a high fracture risk. Reference In formation: The T-score is the number of standard deviations above or below the standard which is normal for young adults at their peak bone mineral density. The World Health Organization (WHO) interp rets the T-scores as follows: Above -1 Normal bone density Between -1 and -2.5 Osteopenia Equal to / or below -2.5 Osteoporosis As a practical clinical guideline, osteopenia may be graded as foll ows: Mild -1 through -1.5 Moderate -1.6 through -2.0 Severe -2.1 through -2.4 The Z-score is the number of standard deviations above or below age-matched controls. A Z-score of less than -1.5 woul d be considered abnormal. References: 1. NIH Osteoporosis and Related Bone Diseases http://www.osteo.org 2. International Society for Clinical Densitometry http://www.iscd.org 3. National Osteoporo sis Foundation http://www.nof.org Electronically Signed: Asa Verma MD at 8:23 EDT Tel [phone], Service support [phone], CC: Tayla Espinal DO Center Receptionist: Signed 12-Nov-2013 OT Discharge Summary Result: Comments: See Note; NOTES: [facility] [address] [place] [address]. [address] [place] [address] Fax REHABILITATION SERVIC ES DISCHARGE SUMMARY MR#: [id number] Acct: [id number] Name: ANNA BARRERA Rep #: [id number] : 1940 73 From: Stephanie Schilling Referring Dr.: Lucero Lucero DO Status: DIS RCR Eval Date: Discharge Date: 11/06/13 DATE OF SERVICE: PHYSICIAN: Lucero Lucero D.O. This 73-year-old female was seen for initial occupational therapy evaluation and the patient was referr ed with a diagnosis of a left elbow fracture. The patient was recommended to undergo surgical repair; however, she declined this procedure and wanted to rehab with what functional ability she could re turn. Active range of motion returned only to 30 degrees of total range of motion; however, she did become functionally independent with bathing, dressing, making her bed as well as carrying groceri es and gardening. At this time, the patient is continuing with the health and wellness program to continue with increasing functional strength and stretching program to improve range of motion. At this time, the patient has plateaued and is discharged. Stephanie Schilling OTR/L T: NTS JOB: [id number] <Electronically signed by Stephanie Schilling > 11/12/13 1101 CC: Signed Immunization Name Dates Details Influenza (3 years and up) on: 22-Mar-2017 Family History Unknown Family Member Name Dates Details Father Comments: CV, DM Status: Active First Degree Relatives Comments: GF CVA Status: Active Sister 1 Comments: HTN Status: Active Social History Name Dates Details Alcohol Use Comments: Remotely quit alcohol use Status: Active Tobacco Use Comments: Remotely quit tobacco use 09/15/11 Status: Active Tobacco use: Former smoker. Status: Active Smoking Status Name Dates Details Former smoker Vital Signs Date Test Result Details [id number] Temperature 97.8 f Comments: Method: Temporal Pulse 74 /min Comments: Pattern: Regular Respiration Rate 20 /min Comments: Pattern: Unlabored O2 SAT 97 % Comments: Room air BP Systolic 120 mm[Hg] Comments: Patient Position: Sitting; Cuff Location: Right Arm; Cuff Size: Standard BP Diastolic 80 mm[Hg] Comments: Patient Position: Sitting; Cuff Location: Right Arm; Cuff Size: Standard Weight 146 lb Height 64 in Body Mass Index Calculated 25.06 kg/m2 Body Surface Area Calculated 1.71 m2 :31 Pulse 75 /min Comments: Pattern: Regular Respiration Rate 18 /min Comments: Pattern: Unlabored O2 SAT 96 % Comments: Room air BP Systolic 120 mm[Hg] Comments: Patient Position: Sitting; Cuff Location: Right Arm; Cuff Size: Large BP Diastolic 62 mm[Hg] Comments: Patient Position: Sitting; Cuff Location: Right Arm; Cuff Size: Large Weight 146.25 lb Height 64 in Body Mass Index Calculated 25.1 kg/m2 Body Surface Area Calculated 1.71 m2 :32 Pulse 70 /min Comments: Pattern: Regular BP Systolic 118 mm[Hg] Comments: Patient Position: Sitting; Cuff Location: Left Arm; Cuff Size: Standard BP Diastolic 64 mm[Hg] Comments: Patient Position: Sitting; Cuff Location: Left Arm; Cuff Size: Standard Weight 141.5 lb Height 64 in Body Mass Index Calculated 24.29 kg/m2 Body Surface Area Calculated 1.69 m2 :00 Pulse 64 /min Comments: Pattern: Regular Respiration Rate 18 /min Comments: Pattern: Unlabored O2 SAT 98 % Comments: Room air BP Systolic 120 mm[Hg] Comments: Patient Position: Sitting; Cuff Location: Left Arm; Cuff Size: Standard BP Diastolic 62 mm[Hg] Comments: Patient Position: Sitting; Cuff Location: Left Arm; Cuff Size: Standard Weight 141.5 lb Height 64 in Body Mass Index Calculated 24.29 kg/m2 Body Surface Area Calculated 1.69 m2 :00 Pulse 75 /min Comments: Pattern: Regular Respiration Rate 18 /min Comments: Pattern: Unlabored O2 SAT 95 % Comments: Room air BP Systolic 122 mm[Hg] Comments: Patient Position: Sitting; Cuff Location: Left Arm; Cuff Size: Standard BP Diastolic 78 mm[Hg] Comments: Patient Position: Sitting; Cuff Location: Left Arm; Cuff Size: Standard Weight 154.125 lb Height 64 in Body Mass Index Calculated 26.46 kg/m2 Body Surface Area Calculated 1.75 m2 :09 Pulse 76 /min Comments: Pattern: Regular Respiration Rate 18 /min Comments: Pattern: Unlabored O2 SAT 96 % Comments: Room air BP Systolic 124 mm[Hg] Comments: Patient Position: Sitting; Cuff Location: Left Arm; Cuff Size: Large BP Diastolic 82 mm[Hg] Comments: Patient Position: Sitting; Cuff Location: Left Arm; Cuff Size: Large Weight 161.25 lb Height 64 in Body Mass Index Calculated 27.68 kg/m2 Body Surface Area Calculated 1.79 m2 :03 Temperature 97.4 f Comments: Method: Temporal Pulse 71 /min Comments: Pattern: Regular Respiration Rate 16 /min Comments: Pattern: Unlabored O2 SAT 96 % Comments: Room air BP Systolic 124 mm[Hg] Comments: Patient Position: Sitting; Cuff Location: Left Arm; Cuff Size: Standard BP Diastolic 68 mm[Hg] Comments: Patient Position: Sitting; Cuff Location: Left Arm; Cuff Size: Standard Weight 161.5 lb Height 64 in Body Mass Index Calculated 27.72 kg/m2 Body Surface Area Calculated 1.79 m2 :28 Temperature 98.2 f Pulse 74 /min Comments: Pattern: Regular Respiration Rate 16 /min Comments: Pattern: Unlabored O2 SAT 97 % Comments: Room air BP Systolic 122 mm[Hg] Comments: Patient Position: Sitting; Cuff Location: Left Arm; Cuff Size: Standard BP Diastolic 76 mm[Hg] Comments: Patient Position: Sitting; Cuff Location: Left Arm; Cuff Size: Standard Weight 162.5 lb :32 Temperature 97.8 f Pulse 67 /min Comments: Pattern: Regular Respiration Rate 16 /min Comments: Pattern: Unlabored O2 SAT 98 % Comments: Room air BP Systolic 116 mm[Hg] Comments: Patient Position: Sitting; Cuff Location: Left Arm; Cuff Size: Standard BP Diastolic 76 mm[Hg] Comments: Patient Position: Sitting; Cuff Location: Left Arm; Cuff Size: Standard Weight 161.375 lb Height 64 in Body Mass Index Calculated 27.7 kg/m2 Body Surface Area Calculated 1.79 m2 :40 Pulse 59 /min Comments: Pattern: Regular Respiration Rate 16 /min Comments: Pattern: Unlabored O2 SAT 95 % Comments: Room air BP Systolic 152 mm[Hg] Comments: Patient Position: Sitting; Cuff Location: Left Arm; Cuff Size: Standard BP Diastolic 68 mm[Hg] Comments: Patient Position: Sitting; Cuff Location: Left Arm; Cuff Size: Standard Weight 155.375 lb Height 64 in Body Mass Index Calculated 26.67 kg/m2 Body Surface Area Calculated 1.76 m2 :04 Pulse 75 /min Comments: Pattern: Regular Respiration Rate 18 /min Comments: Pattern: Unlabored O2 SAT 95 % Comments: Room air BP Systolic 128 mm[Hg] Comments: Patient Position: Sitting; Cuff Location: Left Arm; Cuff Size: Large BP Diastolic 82 mm[Hg] Comments: Patient Position: Sitting; Cuff Location: Left Arm; Cuff Size: Large Weight 157 lb Height 64 in Body Mass Index Calculated 26.95 kg/m2 Body Surface Area Calculated 1.76 m2 :59 Comments: lots of anxiety-- -- will keep eye on bp wiht routinely doing it monthly to create familiarity to decrease anxiety -- and if is decreased will d/c or reduce BB Pulse 71 /min Comments: Pattern: Regular Respiration Rate 20 /min Comments: Pattern: Unlabored O2 SAT 97 % Comments: Room air BP Systolic 142 mm[Hg] Comments: Patient Position: Sitting; Cuff Location: Left Arm; Cuff Size: Large BP Diastolic 78 mm[Hg] Comments: Patient Position: Sitting; Cuff Location: Left Arm; Cuff Size: Large Weight 159.1875 lb Height 64 in Body Mass Index Calculated 27.32 kg/m2 Body Surface Area Calculated 1.78 m2 :31 Temperature 98 f Comments: Method: Oral Pulse 80 /min Comments: Pattern: Regular Respiration Rate 18 /min Comments: Pattern: Unlabored BP Systolic 128 mm[Hg] Comments: Patient Position: Sitting; Cuff Location: Left Arm; Cuff Size: Large BP Diastolic 82 mm[Hg] Comments: Patient Position: Sitting; Cuff Location: Left Arm; Cuff Size: Large Weight 162.4375 lb Height 64 in Body Mass Index Calculated 27.88 kg/m2 Body Surface Area Calculated 1.79 m2 :45 Temperature 98.4 f Comments: Method: Oral Pulse 80 /min Comments: Pattern: Regular Respiration Rate 18 /min O2 SAT 98 % Comments: Room air BP Systolic 138 mm[Hg] Comments: Patient Position: Sitting; Cuff Location: Left Arm; Cuff Size: Standard BP Diastolic 80 mm[Hg] Comments: Patient Position: Sitting; Cuff Location: Left Arm; Cuff Size: Standard Weight 167 lb Height 64 in Body Mass Index Calculated 28.67 kg/m2 Body Surface Area Calculated 1.81 m2 :06 Temperature 98 f Comments: Method: Oral Pulse 86 /min Comments: Pattern: Regular Respiration Rate 18 /min O2 SAT 98 % Comments: Room air BP Systolic 142 mm[Hg] Comments: Patient Position: Sitting; Cuff Location: Left Arm; Cuff Size: Standard BP Diastolic 78 mm[Hg] Comments: Patient Position: Sitting; Cuff Location: Left Arm; Cuff Size: Standard Weight 167 lb Height 64 in Body Mass Index Calculated 28.67 kg/m2 Body Surface Area Calculated 1.81 m2 :25 Temperature 97.8 f Comments: Method: Oral Pulse 76 /min Comments: Pattern: Regular Respiration Rate 16 /min Comments: Pattern: Unlabored BP Systolic 122 mm[Hg] Comments: Patient Position: Sitting; Cuff Location: Left Arm; Cuff Size: Standard BP Diastolic 64 mm[Hg] Comments: Patient Position: Sitting; Cuff Location: Left Arm; Cuff Size: Standard Weight 167 lb Height 64 in Body Mass Index Calculated 28.67 kg/m2 Body Surface Area Calculated 1.81 m2 :58 Temperature 97.7 f Comments: Method: Oral Pulse 60 /min Comments: Pattern: Regular Respiration Rate 16 /min O2 SAT 96 % Comments: Room air BP Systolic 122 mm[Hg] Comments: Patient Position: Sitting; Cuff Location: Left Arm; Cuff Size: Standard BP Diastolic 72 mm[Hg] Comments: Patient Position: Sitting; Cuff Location: Left Arm; Cuff Size: Standard Weight 179.5 lb Height 64 in Body Mass Index Calculated 30.81 kg/m2 Body Surface Area Calculated 1.87 m2 :51 Comments: PT REFUSED VITIALS Weight 179.5 lb Height 64 in Body Mass Index Calculated 30.81 kg/m2 Body Surface Area Calculated 1.87 m2 :35 BP Systolic 122 mm[Hg] Comments: Patient Position: Sitting; Cuff Location: Left Arm; Cuff Size: Standard BP Diastolic 70 mm[Hg] Comments: Patient Position: Sitting; Cuff Location: Left Arm; Cuff Size: Standard :36 Temperature 97.6 f Comments: Method: Oral Pulse 66 /min Comments: Pattern: Regular Respiration Rate 16 /min Comments: Pattern: Unlabored BP Systolic 140 mm[Hg] Comments: Patient Position: Sitting; Cuff Location: Left Arm; Cuff Size: Standard BP Diastolic 76 mm[Hg] Comments: Patient Position: Sitting; Cuff Location: Left Arm; Cuff Size: Standard Weight 179.5 lb Height 64 in Body Mass Index Calculated 30.81 kg/m2 Body Surface Area Calculated 1.87 m2 :24 Pulse 64 /min Comments: Pattern: Regular Respiration Rate 20 /min Comments: Pattern: Unlabored BP Systolic 122 mm[Hg] Comments: Patient Position: Sitting; Cuff Location: Left Arm; Cuff Size: Large BP Diastolic 78 mm[Hg] Comments: Patient Position: Sitting; Cuff Location: Left Arm; Cuff Size: Large Weight 175.5625 lb Height 64 in Body Mass Index Calculated 30.13 kg/m2 Body Surface Area Calculated 1.85 m2 Head Circumference 0.00 cm :09 Temperature 97.3 f Comments: Method: Oral Pulse 82 /min Comments: Pattern: Regular Respiration Rate 16 /min Comments: Pattern: Unlabored BP Systolic 136 mm[Hg] Comments: Patient Position: Sitting; Cuff Location: Left Arm; Cuff Size: Standard BP Diastolic 80 mm[Hg] Comments: Patient Position: Sitting; Cuff Location: Left Arm; Cuff Size: Standard Weight 178.25 lb Height 0 in Head Circumference 0.00 cm :01 Temperature 99.1 f Comments: Method: Oral Pulse 72 /min Comments: Pattern: Regular Respiration Rate 16 /min Comments: Pattern: Unlabored BP Systolic 140 mm[Hg] Comments: Patient Position: Sitting; Cuff Location: Left Arm; Cuff Size: Large BP Diastolic 82 mm[Hg] Comments: Patient Position: Sitting; Cuff Location: Left Arm; Cuff Size: Large Weight 0 lb Height 0 in Head Circumference 0.00 cm :28 Pulse 64 /min Comments: Pattern: Regular Respiration Rate 20 /min Comments: Pattern: Unlabored BP Systolic 128 mm[Hg] Comments: Patient Position: Sitting; Cuff Location: Right Arm; Cuff Size: Standard BP Diastolic 70 mm[Hg] Comments: Patient Position: Sitting; Cuff Location: Right Arm; Cuff Size: Standard Weight 178 lb Height 64 in Body Mass Index Calculated 30.55 kg/m2 Body Surface Area Calculated 1.86 m2 Head Circumference 0.00 cm :35 Temperature 98.6 f Comments: Method: Oral Pulse 88 /min Comments: Pattern: Regular Respiration Rate 20 /min Comments: Pattern: Unlabored BP Systolic 160 mm[Hg] Comments: Patient Position: Sitting; Cuff Location: Left Arm; Cuff Size: Standard BP Diastolic 90 mm[Hg] Comments: Patient Position: Sitting; Cuff Location: Left Arm; Cuff Size: Standard Weight 170.3125 lb Height 64 in Body Mass Index Calculated 29.23 kg/m2 Body Surface Area Calculated 1.83 m2 Head Circumference 0.00 cm Results Date Description Value Details [id number]-[id number] T3, FREE (TRIDOTHYRONINE) (24990) Comments: PATIENT NOT FASTINGPERFORMED BY: Sidekick GamesJFK Medical CenterPgbqnx8246 [facility] [id number] Triiodothyronine (T3), Free 3.1 pg/mL (Normal) Range: 2.0-4.4 19-Set-868609:31 T4, FREE (THYROXINE) (57647) Comments: PATIENT NOT FASTINGPERFORMED BY: Sidekick GamesJFK Medical CenterGajbka7081 [facility] [id number] T4,Free(Direct) 2.14 ng/dL (Abnormal) Range: 0.82-1.77 07-Vtw-906252:31 TSH (THYROID STIMULATING Comments: PATIENT NOT FASTINGPERFORMED BY: Sidekick GamesTyrone [place] [id number] [facility] [id number] HORMONE) (30242) TSH 0.058 {uIU/mL} (Abnormal) Range: 0.450-4.500 16-Hlo-912845:52 CALCIFEDIOL (51648) Comments: PATIENT NOT FASTINGPERFORMED BY: [facility]Asc[facility]6370 [facility] [id number] Vitamin D, 25-Hydroxy 20.8 ng/mL (Abnormal) Range: 30.0-100.0 Comments: Vitamin D deficiency has been defined by the [place] of[place]icine and an Endocrine Society practice guideline as alevel of serum 25-OH vitamin D less than 20 ng/mL (1,2).The Endocrine Society went on to further define vitamin Dinsufficiency as a level between 21 and 29 ng/mL (2).1. IOM ([place] of [employer]). 2010. Dietary reference intakes for calcium and D. [place]: The National Academies Press.2. Ham MF, Alvino ALCALA, Ileana AYALA, et al. Evaluation, treatment, and prevention of vitamin D deficiency: an Endocrine Society clinical practice guideline. JCEM. 2010; 96(7):1911-30. 17-Ral-096490:52 MICROALBUMIN: CREATININE RATIO Comments: PATIENT NOT FASTINGPERFORMED BY: [employer] [id number] [facility] [id number] (62230) AND (72824) Alb/Creat Ratio <22.6 {mg/g_creat} (Normal) Range: 0.0-30.0 Albumin, Urine <3.0 ug/mL (Normal) Creatinine, Urine 13.3 mg/dL (Normal) :52 METABOLIC PANEL, COMPREHENSIVE Comments: PATIENT NOT FASTINGPERFORMED BY: [employer] [id number] [facility] [id number] (67525) ALT (SGPT) 12 [iU]/L (Normal) Range: 0-32 AST (SGOT) 16 [iU]/L (Normal) Range: 0-40 Alkaline Phosphatase 97 [iU]/L (Normal) Range: 39-117 Bilirubin, Total <0.2 mg/dL (Normal) Range: 0.0-1.2 A/G Ratio 2.0 (Normal) Range: 1.2-2.2 Globulin, Total 2.0 g/dL (Normal) Range: 1.5-4.5 Albumin 4.0 g/dL (Normal) Range: 3.5-4.8 Protein, Total 6.0 g/dL (Normal) Range: 6.0-8.5 Calcium 10.2 mg/dL (Normal) Range: 8.7-10.3 Carbon Dioxide, Total 28 mmol/L (Normal) Range: 20-29 Comments: Please note reference interval change Chloride 102 mmol/L (Normal) Range: 96-106 Potassium 4.6 mmol/L (Normal) Range: 3.5-5.2 Sodium 143 mmol/L (Normal) Range: 134-144 BUN/Creatinine Ratio 26 (Normal) Range: 12-28 eGFR If Africn Am 109 mL/min/1.73 (Normal) eGFR If NonAfricn Am 94 mL/min/1.73 (Normal) Creatinine 0.50 mg/dL (Abnormal) Range: 0.57-1.00 BUN 13 mg/dL (Normal) Range: 8-27 Glucose 86 mg/dL (Normal) Range: 65-99 34-Ptq-826636:52 CBC W/AUTO DIFF WBC (81057) Comments: PATIENT NOT FASTINGPERFORMED BY: [facility] Inmkay0373 [facility] [id number] Immature Grans (Abs) 0.0 {x10E3/uL} (Normal) Range: 0.0-0.1 Immature Granulocytes 0 % (Normal) Baso (Absolute) 0.0 {x10E3/uL} (Normal) Range: 0.0-0.2 Eos (Absolute) 0.5 {x10E3/uL} (Abnormal) Range: 0.0-0.4 Monocytes(Absolute) 0.4 {x10E3/uL} (Normal) Range: 0.1-0.9 Lymphs (Absolute) 1.4 {x10E3/uL} (Normal) Range: 0.7-3.1 Neutrophils (Absolute) 2.6 {x10E3/uL} (Normal) Range: 1.4-7.0 Basos 0 % (Normal) Eos 9 % (Normal) Monocytes 8 % (Normal) Lymphs 29 % (Normal) Neutrophils 54 % (Normal) Platelets 298 {x10E3/uL} (Normal) Range: 150-379 RDW 13.1 % (Normal) Range: 12.3-15.4 MCHC 32.3 g/dL (Normal) Range: 31.5-35.7 MCH 30.9 pg (Normal) Range: 26.6-33.0 MCV 96 fL (Normal) Range: 79-97 Hematocrit 37.2 % (Normal) Range: 34.0-46.6 Hemoglobin 12.0 g/dL (Normal) Range: 11.1-15.9 RBC 3.88 {x10E6/uL} (Normal) Range: 3.77-5.28 WBC 4.9 {x10E3/uL} (Normal) Range: 3.4-10.8 :52 TSH (98450) Comments: PATIENT NOT FASTINGPERFORMED BY: [facility]6370 [facility] [id number] TSH 0.032 {uIU/mL} (Abnormal) Range: 0.450-4.500 :52 T4, FREE (THYROXINE) (43906) Comments: PATIENT NOT FASTINGPERFORMED BY: [address] [id number] T4,Free(Direct) 2.26 ng/dL (Abnormal) Range: 0.82-1.77 :52 T3, FREE (TRIDOTHYRONINE) (71697) Comments: PATIENT NOT FASTINGPERFORMED BY: [facility]6370 [facility] [id number] Triiodothyronine,Free,Serum 3.6 pg/mL (Normal) Range: 2.0-4.4 21-Dkd-890855:50 Urinalysis, Complete Comments: Order Date: 09/08/17How was Urine Obtained? LOGISTICAL ENGINEER TO [facility] [id number] [place], [address] MUCUS, URINE 0 SEEN {/hpf} (Normal) BACTERIA 0 SEEN {/hpf} (Normal) TRANSITIONAL EP 0-5 SEEN {/hpf} (Normal) Range: 0-5 SQUAM EPI 0-5 SEEN {/hpf} (Normal) Range: 5-10 RBC-UA 0 SEEN {/hpf} (Normal) Range: 0-5 WBC 0 SEEN {/hpf} (Normal) Range: 0-5 LEUK ESTERASE Negative /ul (Normal) OCCULT BLOOD-UR Negative /ul (Normal) NITRITE UR Negative (Normal) UROBILI Normal mg/dL (Normal) PROT DIPSTX Negative mg/dL (Normal) pH UR 7.0 (Normal) Range: 5.0 - 8.0 SP.GR. DIPSTX 1.010 (Normal) Range: 1.002-1.030 KETONE UR Negative mg/dL (Normal) BILIRUBIN URINE Negative mg/dL (Normal) GLUCOSE, UR Normal mg/dL (Normal) CLARITY Clear (Normal) COLOR Straw (Normal) 99-Wav-295412:20 CBC W/Diff, Automated Comments: [facility] [id number] [place], [place], [address] PATH REV October (Normal) Absolute Lymph 0.49 {X10_3/ul} (Abnormal) Range: 0.83-4.51 Absolute Neut 2.1 {X10_3/uL} (Normal) Range: 2.0-7.7 IM GRAN % 0.300 % (Normal) Range: 0.0-0.9 Comments: IG% - Immature Granulocytes (promyelocytes, myelocytes andmetamyelocytes) > 1% indicates that a LEFT SHIFT is Present. BASO% 1.0 % (Normal) Range: 0-1 EO% 0.3 % (Normal) Range: 0-5 MONO% 7.7 % (Normal) Range: 0-10 LY% 17.1 % (Abnormal) Range: 19-41 NEUT% 73.6 % (Abnormal) Range: 47-70 MPV 9.2 fL (Normal) Range: 6.2-12.0 PLT 150 K/mm3 (Normal) Range: 150-450 RDW SD 48.7 fL (Abnormal) Range: 35.1-43.9 RDW CV 15.0 % (Abnormal) Range: 11.6-14.6 MCHC 33.0 {g/gl} (Normal) Range: 32-36 MCH 29.5 pg (Normal) Range: 27.0-32.0 MCV 89.3 fL (Normal) Range: 81-99 HCT 38.5 % (Normal) Range: 37-47 HGB 12.7 g/dL (Normal) Range: 12.0-15.0 RBC 4.31 {M/mm3} (Normal) Range: 4.2-5.4 WBC 2.9 K/mm3 (Abnormal) Range: 4.4-11.0 39-Mll-702156:20 Comprehensive Metabolic Profil Comments: 'TROP' Serial specimen #1, #2, #3, or #4: 1[facility] [id number] [place], [place], [id number] GAP 5 (Normal) Range: 5-15 CO2 31.0 mmol/L (Normal) Range: 21.0-32.0 CL 102 mmol/L (Normal) Range: 98-107 K 3.6 mmol/L (Normal) Range: 3.5-5.1 NA 138 mmol/L (Normal) Range: 136-145 T BILI 0.40 mg/dL (Normal) Range: 0.20-1.00 ALT 88 U/L (Abnormal) Range: 13-56 Comments: Please note revised ALT reference range turdhtgzy16/28/2018. ALK P 95 U/L (Normal) Range: 45-117 AST 42 U/L (Abnormal) Range: 15-37 CA 9.2 mg/dL (Normal) Range: 8.5-10.1 A/G 0.9 {RATIO} (Normal) Range: 0.9-2.4 GLOB 3.3 g/dL (Normal) Range: 2.2-4.2 ALB 3.1 g/dL (Abnormal) Range: 3.2-5.0 T PROT 6.4 g/dL (Normal) Range: 6.4-8.2 BUN/CRE 26.1 {RATIO} (Abnormal) Range: 10-20 Estimated CRCL 39.59 ml/min (Normal) EST GFR - AA 142 mL/min (Normal) Comments: GFR Calc EST GFR 117 mL/min (Normal) Comments: Non- GFR Calc CREAT,SERUM 0.54 mg/dL (Abnormal) Range: 0.55-1.02 Comments: The validity of the calculated GFR AND GFRAA in patients over70 years has not been determined. Clinical correlation isessential. BUN 14 mg/dL (Normal) Range: 7-18 GLU 106 mg/dL (Normal) Range: 74-106 Comments: Fasting Glucose result from 100 to 125 mg/dLsuggests IMPAIRED HOMEOSTASIS per A.D.A. criteria.Please note revised GLUCOSE reference range axitgdyuu33/02/2018. 31-Lrx-193063:20 Lipase Comments: 'TROP' Serial specimen #1, #2, #3, or #4: [address] [place] [address] [id number] [place], [id number] LIPASE 389 U/L (Normal) Range: 73-393 13-Iam-428700:20 Troponin-I Comments: 'TROP' Serial specimen #1, #2, #3, or #4: [address] [place] [id number] [place], [address] TROPONIN-I < 0.02 ng/mL (Normal) Comments: TROPONIN-I EXPECTED VALUES <0.05 NEGATIVE 0.06 - 0.59 AT RISK OF [place] > OR = 0.60 SUGGEST [place] 92-Auq-93097:50 Basic Metabolic Profile (BMP) Comments: [facility] [id number] [place], [id number] GAP 9 (Normal) Range: 5-15 CO2 24.0 mmol/L (Normal) Range: 21.0-32.0 CL 103 mmol/L (Normal) Range: 98-107 K 3.7 mmol/L (Normal) Range: 3.5-5.1 NA 136 mmol/L (Normal) Range: 136-145 CA 8.6 mg/dL (Normal) Range: 8.5-10.1 BUN/CRE 38.0 {RATIO} (Abnormal) Range: 10-20 Estimated CRCL 43.07 ml/min (Normal) EST GFR - AA 146 mL/min (Normal) Comments: GFR Calc EST GFR 120 mL/min (Normal) Comments: Non- GFR Calc CREAT,SERUM 0.53 mg/dL (Abnormal) Range: 0.55-1.02 Comments: The validity of the calculated GFR AND GFRAA in patients over70 years has not been determined. Clinical correlation isessential. BUN 20 mg/dL (Abnormal) Range: 7-18 GLU 100 mg/dL (Normal) Range: 70-110 26-Gar-39046:50 CBC W/Diff, Automated Comments: [facility] [id number] [place], [place], [id number] SMEAR COMMENT SCANNED (Normal) Absolute Lymph 0.40 {X10_3/ul} Range: 0.83-4.51 (Abnormal) Absolute Neut 4.1 {X10_3/uL} Range: 2.0-7.7 (Normal) IM GRAN % 0.000 % (Normal) Range: 0.0-0.9 Comments: IG% - Immature Granulocytes (promyelocytes, myelocytes andmetamyelocytes) > 1% indicates that a LEFT SHIFT is Present. BASO% 0.0 % (Normal) Range: 0-1 EO% 6.9 % (Abnormal) Range: 0-5 MONO% 5.6 % (Normal) Range: 0-10 LY% 7.7 % (Abnormal) Range: 19-41 NEUT% 79.8 % Range: 47-70 (Abnormal) MPV 9.3 fL (Normal) Range: 6.2-12.0 PLT 212 K/mm3 Range: 150-450 (Normal) RDW SD 48.8 fL Range: 35.1-43.9 (Abnormal) RDW CV 14.2 % (Normal) Range: 11.6-14.6 MCHC 31.3 {g/gl} Range: 32-36 (Abnormal) MCH 29.8 pg (Normal) Range: 27.0-32.0 MCV 95.2 fL (Normal) Range: 81-99 HCT 35.5 % Range: 37-47 (Abnormal) HGB 11.1 g/dL Range: 12.0-15.0 (Abnormal) RBC 3.73 {M/mm3} Range: 4.2-5.4 (Abnormal) WBC 5.2 K/mm3 Range: 4.4-11.0 (Normal) -Jun-2017 BREAST MASTECTOMY (CHOOSE See Note Comments: [facility] [id number] [place], [place], [id number] 7:15 SIDE (Normal) Comments: Patient: ANNA BARRERA : 1940 (77/F) Acct Num: [id number] Phys: Shaina ESTEBAN,Josh Unit Num: [id number] Loc: [facility] [place] Specimen: [id number] Received: 06/22/17936 Spec Type: B REAST TISSUES TISSUES: Left breast, NOS COMMENT The ulcerated, detached fragment of tumor shows predominantly fibrinopurulent exudate and superficial skin surface. Hemor rhagic tumor mass in the breast shows focal area of residual tumor. Entire ulcerated skin lesion shows changes consistent with presurgical neoadjuvant therapy. No tumor is noted in the ulcerated area or detached fragments of tumor. Immunohistochemistry (RF18-26) supports the diagnosis of focal residual carcinoma. Immunohistochemistry ([id number]) is negative for metastatic carcinoma (block 24). The lymph node in this block shows focal area of congestion, histiocytes and dark blue cells (cells with karyorrhexis and karyolysis). Additional lymph nodes focal area of fibrosis, hemorrhage and calc ification, these may represent therapy related changes. Case has been reviewed in consultation with Dr. Garza who concurs with the above diagnosis. IDC:AM GROSS DESCRIPTION Received in fixati ve is one container labeled with the patient's name and designated left breast and axillary contents. The specimen consists of a modified radical mastectomy specimen consisting of breast tissue with an overlying skin ellipse and axillary tail. The breast tissue measures 20 x 20 x 6 cm. The overlying skin ellipse measures 17 x 8 cm. The skin surface shows anulcerated tumor mass. Multiple brownis h lesions are also noted on the skin surface measuring 0.5 to 1 cm in greatest dimension. The nipple measures 1 cm in greatest dimension. The axillary tail measures 8 x 4 x 2 cm. Also present in the container is a detached piece of skin ellipse measuring 7.5 x 1 cm and upto 1 cm in thickness. Also present in the container is a detached piece of brownish tumor mass measuring 4.5 x 2.5 x 2 cm. The specimen is inked as follows: superior margin blue, inferior margin green, medial margin red, lateral margin including axillary tail orange, posterior margin black. Serial sections reveal a hemorrhagic mass underneath the skin surface in the lower inner quadrant measuring 1.5 cm in diameter. The hemorrhagic mass is 2 cmaway from the deep resection margin. The raised ulcerated lesion on t he skin surface, overlying the mass, measures 4 x 2 x 1.5 cm. Sections of the rest of the specimen reveal hobson-yellow adipose cut surfaces mixed with hobson- white fibrousarea. More dictation will follow after overnight fixation. / SJ:rg 06/22/17 Sections of the axillary tail reveal multiple lymph nodes. The largest lymph node measures 3.5 cm in greatest dimension. Site Physician sections are subm itted as follows: 1 Nipple, entirely submitted , 2 skin lesions, one bisected, second one inked blue, third one inked black, 3 two lesion bisected,one lesion is inked black, 4 one bisected skin lesion, 5 detached fragment of tumor, 6-12 skin with ulcerated tumor and underling hemorrhagic mass, 13 perpendicular medial and lateral margins, 14 perpendicular superior, inferior and posteri or margin, 15-17 employee relations representative sections from the other areas, 18 multiple lymph nodes, 19-21 each cassette containing one bisected lymph node, 22 two lymph nodes, 23 AND 24 one lymph node, 2 5 AND 26 one lymph node. / SJ:rg 06/23/17 TC:0 CPT: 44849 HEADER OPERATION: Left modified radical mastectomy PRE-OP DIAGNOSIS: Left breast cancer TISSUE SUBMITTED: Left breast and axil vinayak contents MICROSCOPIC DESCRIPTION Slides are reviewed. 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 Changes consistent with treatment effect (presurgical neoadjuvant) therapy bothin breast and in the lymph nodes. Multiple skin lesions, consistent wi th seborrheic keratosis. Eleven out of 11 lymph nodes negative for metastatic carcinoma. INVASIVE BREAST CANCER SUMMARY: Specimen total breast (including nipple and skin). Procedure total mastectomy (including nipple and skin). Lymph node sampling axillary dissection Specimen integrity single, intact specimen Specimen laterality - left Tumor site lower inner quadrant Tumor size 0.5 x 0.3 cm Tumor focality single focus of invasive carcinoma Macroscopic and Microscopic extent of tumor: Skin invasive carcinoma does not invade into the d ermis or epidermis Nipple ductal carcinoma does not involve the nipple epidermis. Skeletal muscle no skeletal muscle present. Ductal carcinoma in situ (DCIS) no ductal carcinoma in situ is present. 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 Histologic Grade (Nottingh am grade): Glandular/tubular differentiation - score 3 Nuclear pleomorphism - score 3 Mitotic count score 1 Overall grade - 2 (score of 7) Margins: Margins uninvolved by invasive carcinoma. The tumor is 2 cm away from the deep margin. Treatment effect response to presurgical (neoadjuvant therapy) In the breast - definite response to presurgical therapy in the invasive carcinoma. In the lymph node definite response to presurgical therapy in the metastatic carcinoma. See comment. Lymph- Vascular invasion not identified Dermal l ymph-vascular invasion not identified Lymph nodes: Number of sentinel lymph nodes examined - 0 Total number of lymph nodes examined (sentinel and nonsentinel) - 11 Number of lymp h nodes with macrometastases, micrometastases and isolated tumor cells - 0 Distance metastasis not applicable Additional pathologic findings: - Extensive area of necrosis, histiocytic reaction and hemorrhage (consistent with presurgical neoadjuvant chemotherapy related changes) - Skin lesions, seborrheic keratosis. - Fibrocystic changes with intraductal hyperplasia without a typia. - Microscopic hyalinized fibroadenoma (0.6 x 0.4 cm) - one lymph node with hemangioma (0.1 cm in greatest dimension). Ancillary studies - previously performed on section of tumo r ([id number] / [id number]). 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 PATHOLOGIC STAGE: p T1a(y) pN0 Mx The above summary is in compliance with [employer] [place] [employer] (CAP) Cancer Protocols Checklist and [place] Joint Committee on Cancer (AJCC), Staging Manual, 7th Ed. SJ:blanco 06/26/17 Signed Young Malcolm 06/26/17 <signature on file> 22-Jun-2017 IMMUNOHISTOCHEMISTRY See Note Comments: [facility] [address] [place], [place], [address] 0:00 (Normal) Comments: Patient: ANNA BARRERA : 1940 (77/F) Acct Num: [id number] Phys: Shaina ESTEBAN,Josh Unit Num: [id number] Loc: [facility] [place] Specimen: [id number] Received: 06/26/17 - 1201 Spec Type: IMMUNO TISSUES TISSUES: Left breast, NOS SPECIMEN INFORMATION: Tissue Source: Left breast and axillary contents Clinical Info: Left breast cancer Specimen Number: [id number] #6 AND 24 CPT code: 83053, 82424 x3 METHODOLOGY: Deparaffinized sections of prefer/formalin-fixed tissue or PAP/DQ stained slides are incubated with monoclonal/polyclonal antibodies/olig onucleotide probes. Localization is made via biotin free immunoperoxidase method. Appropriate controls are performed and reacted as expected. Results on target cell population are indicated in the fo llowing table: RESULTS: ANTIBODY / CLONE RESULT Block 6 AE1-3 (AE1/AE3/PCK26) positive CK7 (OV-TL12/30) positive Block 24 AE1-3 (AE1/AE3/PCK26) negative CK7 (OV-TL12/30) negative These tests were developed and their performance characteristics determined by [facility]. They may not have been cleared o r approved by the U.S. Food and Drug Administration. The FDA has determined that such clearance or approval is not necessary. INTERPRETATION: Left breast and axillary contents, modified radical mastectomy: Poorly differentiated invasive carcinoma, basaloid type (#6). One lymph node, negative for metastatic carcinoma (#24). SJ:blanco 06/27/17 Case has been reviewed in consultation with Dr. Garza who concurs with the above diagnosis. IDC:AM PHYSICIAN AND INSTITUTION [address] [address] Signed Young Malcolm 06/27/17 <signature on file> [id number]-Lgq-[id number]:57 Basic Metabolic Profile (BMP) Comments: [facility] [address] [place] [address], [id number] GAP 6 (Normal) Range: 5-15 CO2 31.0 mmol/L (Normal) Range: 21.0-32.0 CL 104 mmol/L (Normal) Range: 98-107 K 3.9 mmol/L (Normal) Range: 3.5-5.1 NA 141 mmol/L (Normal) Range: 136-145 CA 8.9 mg/dL (Normal) Range: 8.5-10.1 BUN/CRE 26.4 {RATIO} (Abnormal) Range: 10-20 EST GFR - AA 133 mL/min (Normal) Comments: GFR Calc EST GFR 110 mL/min (Normal) Comments: Non- GFR Calc CREAT,SERUM 0.57 mg/dL (Normal) Range: 0.55-1.02 Comments: The validity of the calculated GFR AND GFRAA in patients over70 years has not been determined. Clinical correlation isessential. BUN 15 mg/dL (Normal) Range: 7-18 GLU 86 mg/dL (Normal) Range: 70-110 :57 CBC-Complete Blood Cnt No Diff Comments: [facility] [address] [place], [place], [id number] MPV 9.5 fL (Normal) Range: 6.2-12.0 PLT 294 K/mm3 (Normal) Range: 150-450 RDW SD 58.1 fL (Abnormal) Range: 35.1-43.9 RDW CV 15.7 % (Abnormal) Range: 11.6-14.6 MCHC 30.5 {g/gl} (Abnormal) Range: 32-36 MCH 30.7 pg (Normal) Range: 27.0-32.0 MCV 100.6 fL (Abnormal) Range: 81-99 HCT 33.1 % (Abnormal) Range: 37-47 HGB 10.1 g/dL (Abnormal) Range: 12.0-15.0 RBC 3.29 {M/mm3} (Abnormal) Range: 4.2-5.4 WBC 3.9 K/mm3 (Abnormal) Range: 4.4-11.0 :57 Thyroid Stim Hormone (TSH) Comments: [facility] [address] [place], [address] TSH 0.26 {uIU/mL} (Abnormal) Range: 0.358-3.74 38-Wkp-228081:08 Basic Metabolic Profile (BMP) Comments: [facility] [address] [place], [place], [id number] GAP 7 (Normal) Range: 5-15 CO2 27.0 mmol/L (Normal) Range: 21.0-32.0 CL 102 mmol/L (Normal) Range: 98-107 K 3.8 mmol/L (Normal) Range: 3.5-5.1 NA 136 mmol/L (Normal) Range: 136-145 CA 9.0 mg/dL (Normal) Range: 8.5-10.1 BUN/CRE 40.1 {RATIO} (Abnormal) Range: 10-20 Estimated CRCL 43.74 ml/min (Normal) EST GFR - AA 234 mL/min (Normal) Comments: GFR Calc EST GFR 193 mL/min (Normal) Comments: Non- GFR Calc CREAT,SERUM 0.35 mg/dL (Abnormal) Range: 0.55-1.02 Comments: The validity of the calculated GFR AND GFRAA in patients over70 years has not been determined. Clinical correlation isessential. BUN 14 mg/dL (Normal) Range: 7-18 GLU 108 mg/dL (Normal) Range: 70-110 61-Gwp-655925:30 Culture, Sputum Comments: [facility] [address] [facility]. [place], [place], [id number] CUSP See Note (Normal) Comments: Gram StainAcceptable Specimen? Yes (<25 Epithelial cells per/lpf) Gram Stain 1+ White Blood Cells No Epithelial cells 2+ Gram positive cocci in clusters Resp. CultureMixed normal respirat ory anita. No Haemophilus, Streptococcus pneumoniae, beta-hemolytic Streptococcus or Staphylococcus aureus isolated. ORGANISM 1: YeastAmount Growth Rare 71-Vbh-111927:00 Culture, Sputum Comments: [facility] [address] [facility] [address] [place], [place], [address] CUSP See Note Comments: Gram StainAcceptable Specimen? Yes (<25 Epithelial cells per/lpf) Gram Stain 2+ White Blood Cells Rare Epithelial cells 4+ Gram positive cocci in chains 4+ Gram positive cocci Resp. Cult (Normal) ureNo Haemophilus, Streptococcus pneumoniae, beta-hemolytic Streptococcus or Staphylococcus aureus isolated. ORGANISM 1: Serratia marcescensAmount Growth 2+ Serratia marcescens: REACTION Amoxacillin/Clavulanic Acid $ 16 R Cefazolin $ >=64 R Cefepime $ <=1 S Ceftr iaxone $ <=1 S Ciprofloxacin $ <=0.25 S Ertapenim $$$ <=0.5 S Gentamicin $ <=1 S Levofloxacin $ 0.25 S Tobramycin $ 2 S Trimethoprim/Sulfametho $ <=20 S(NF) indicates non-formulary veena g at [facility]. Approval by Infectious Disease Specialist required before non-formulary drugs may be ordered and/or dispensed. BREAST BIOPSY (CHOOSE SITE) See Note Comments: [facility] [address] [place], [address] 716:06 (Normal) Comments: Patient: ANNA BARRERA : 1940 (76/F) Acct Num: [id number] Phys: Andrew ESTEBAN,Ceferino Unit Num: [id number] Loc: [facility] Specimen: [id number] Received: 01/18/17 - 1024 Spe c Type: BREAST BX TISSUES TISSUES: COMMENT Immunohistochemistry ([id number]) supports the above diagnosis. 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 Case is reviewed in consultation with Dr. Ibarra of [facility]. The complete consultative report is viewable in patient's EMR. Case has been reviewed in consultation with Dr. Malcolm who concurs with the abovediagnosis. IDC: SJ GROSS DESCRIPTION Received in fixative is one container labeled with the patient's name and designated left breast. The specimen consists of multiple irregular fragmentsof light to dark hobson soft tissue ranging in size from 1 cm to 3 cm. The largestfragment is serially sectioned and submitted along with the smaller fragments intwo cassettes. / AM:blanco 01/18/17 TC:0 CPT: 16213 HEADER OPERATION: Left breast core biopsy PRE-OP DIAGNOSIS: Breast cancer TISSUE SUBMITTED: Left breast core biopsy ISCHEMIC TIME: 18 minutes FIXATION TIME: 17 hours MICROSCOPIC DESCRIPTION Sli diana are reviewed. MICROSCOPIC DIAGNOSIS Left breast, core biopsy: Poorly differentiated ductal carcinoma. AM:blanco 01/19/17 Signed Deo Garza 01/30/17 <signature on file> IMMUNOHISTOCHEMISTRY See Note Comments: [facility] [address] [place], [address] 70:00 (Normal) Comments: Patient: ANNA BARRERA : 1940 (76/F) Acct Num: [id number] Phys: Ceferino Morales MD Unit Num: [id number] Loc: [facility] Specimen: [id number] Received: 01/19/171030 Spe c Type: IMMUNO TISSUES TISSUES: SPECIMEN INFORMATION: Tissue Source: Left breast core biopsy Clinical Info: Breast cancer Specimen Number: [id number] #1 CPT code: 03788, 62423 x22, 47385 x3 METHODOLOGY: Deparaffinized sections of prefer/formalin- fixed tissue or PAP/DQ stained slides are incubated with monoclonal/polyclonal antibodies/oligonucleotide probes. Localizatio n is made via biotin free immunoperoxidase method. Appropriate controls are performed and reacted as expected. Results on target cell population are indicated in the following table: RESULTS: AN TIBODY / CLONE RESULT Block #1 E-Cad (ECH-6) positive Mammaglobin (31A5) negative GATA3 (L50-823) positive Vimentin (V9) positive Myosin (simms1) negative Desmin (CE-R-11) negative S-100 (4C4.9) negative Melan A (A103) negative CD31 (FREIDA/70A) negative CD34 (QBEnd-10) negative Factor VIII (R Ag) negative CK19 (A53-B/A2.26) positive CD56 (123C3.D5) negative Chromo (LK2H10) negative Synapto (polyclonal) negative Neurofil (2F11) negative TTF-1 (8G7G3/1) negative CK5-6 (D5 AND 1684) positive K i-67 (30-9) positive, high (>95%) CEA (11-7/TF-3HB-1) negative ARLENE (E29) positive P40 (BC28) negative P53 (DO-7) pos itive, >95% MORPHOMETRIC ANALYSIS ER (clone 6F11) 38%, weak to moderate NV (clone 16/1E2) 0% Her-2Neu (clone CB11) 0 The prognostic test for HER2 is performed on formalin-fixed paraffin embedded tissue. A 3+ (positive) staining pattern is defined as intense, homogeneous, complete, circumferential membran ous staining in >10% of contiguous tumor cells. A similar weak (2+) staining pattern is interpreted as equivocal. JENNA follow-up testing is recommended for all equivocal cases. Positivity/negativity for ER/NV is reported if > or < 1% of the tumor cells are immuno- reactive, respectively. The ASCO/CAP criteria is used for scoring. Reference: Journal of Clinical Oncology, 2013; 31:7279-9509 AN D 2010; 16:8357-6563. Duration of fixation: 17 Hrs; Sample Adequate: Yes. These assays have not been validated on decalcified tissues. Results should beinterpreted with caution given the likelihoo d of false negativity on decalcifiedspecimens. These tests were developed and their performance characteristics determined by [facility]. They may not have been cleared or approved by the U.S. Food and Drug Administration. The FDA has determined that such clearance or approval is not necessary. INTERPRETATION: Left breast, core biopsy: Poorly differentiated duct al carcinoma. Positive for estrogen receptors (favorable prognostic indicator). Negative for progesterone receptors (unfavorable prognostic indicator). Negative for overexpression of HER2n eu. AM:blanco 01/30/17 Comment: A primary breast basaloid carcinoma is favored. Clinical correlationis necessary. Case is reviewed in consultation with Dr. Ibarra of [facility] [employer]. Complete consultative report is viewable in patient's EMR Case has been reviewed in consultation with Dr. Malcolm who concurs with the abovediagnosis. IDC: PHYSICIAN AND INSTITUTION [address] [id number] Signed Deo [facility] 01/30/17 <signature on file> [id number]-Far-[id number]:04 Basic Metabolic Profile (BMP) Comments: [facility] [address] [place], [address] GAP 6 (Normal) Range: 5-15 CO2 30.0 mmol/L (Normal) Range: 21.0-32.0 CL 108 mmol/L (Abnormal) Range: 98-107 K 4.4 mmol/L (Normal) Range: 3.5-5.1 Comments: Moderate Hemolysis, Result may be falsely increased. NA 144 mmol/L (Normal) Range: 136-145 CA 9.6 mg/dL (Normal) Range: 8.5-10.1 BUN/CRE 14.9 {RATIO} (Normal) Range: 10-20 Estimated CRCL 43.74 ml/min (Normal) EST GFR - AA 98 mL/min (Normal) Comments: GFR Calc EST GFR 81 mL/min (Normal) Comments: Non- GFR Calc CREAT,SERUM 0.74 mg/dL (Normal) Range: 0.55-1.02 Comments: The validity of the calculated GFR AND GFRAA in patients over70 years has not been determined. Clinical correlation isessential. BUN 11 mg/dL (Normal) Range: 7-18 GLU 113 mg/dL (Abnormal) Range: 70-110 Comments: Fasting Glucose result from 110 to <126 mg/dLsuggests IMPAIRED HOMEOSTASIS per A.D.A. criteria. 90-Aii-79442:04 CBC W/Diff, Automated Comments: [facility] [address] [place], [address] Absolute Lymph 1.46 {X10_3/ul} (Normal) Range: 0.83-4.51 Absolute Neut 6.6 {X10_3/uL} (Normal) Range: 2.0-7.7 IM GRAN % 0.200 % (Normal) Range: 0.0-0.9 Comments: IG% - Immature Granulocytes (promyelocytes, myelocytes andmetamyelocytes) > 1% indicates that a LEFT SHIFT is Present. BASO% 0.2 % (Normal) Range: 0-1 EO% 5.6 % (Abnormal) Range: 0-5 MONO% 7.7 % (Normal) Range: 0-10 LY% 15.7 % (Abnormal) Range: 19-41 NEUT% 70.6 % (Abnormal) Range: 47-70 MPV 9.3 fL (Normal) Range: 6.2-12.0 PLT 367 K/mm3 (Normal) Range: 150-450 RDW SD 43.3 fL (Normal) Range: 35.1-43.9 RDW CV 12.7 % (Normal) Range: 11.6-14.6 MCHC 32.8 {g/gl} (Normal) Range: 32-36 MCH 31.7 pg (Normal) Range: 27.0-32.0 MCV 96.7 fL (Normal) Range: 81-99 HCT 35.7 % (Abnormal) Range: 37-47 HGB 11.7 g/dL (Abnormal) Range: 12.0-15.0 RBC 3.69 {M/mm3} (Abnormal) Range: 4.2-5.4 WBC 9.3 K/mm3 (Normal) Range: 4.4-11.0 :04 Partial Thromboplast Time Comments: [facility] [address] [place], [place], [phone] PTT 26.4 s (Normal) Range: 24.1-36.2 :04 Prothrombin Time w/INR Comments: [facility] [address] [place], [place], [id number] INR 1.0 (Normal) PROTIME 12.7 s (Normal) Range: 11.7-14.9 :05 CBC W/Diff, Automated Comments: [facility] [address] [place], [place], [id number] Absolute Lymph 2.04 {X10_3/ul} (Normal) Range: 0.83-4.51 Absolute Neut 4.6 {X10_3/uL} (Normal) Range: 2.0-7.7 IM GRAN % 0.100 % (Normal) Range: 0.0-0.9 Comments: IG% - Immature Granulocytes (promyelocytes, myelocytes andmetamyelocytes) > 1% indicates that a LEFT SHIFT is Present. BASO% 0.3 % (Normal) Range: 0-1 EO% 7.1 % (Abnormal) Range: 0-5 MONO% 7.8 % (Normal) Range: 0-10 LY% 26.0 % (Normal) Range: 19-41 NEUT% 58.7 % (Normal) Range: 47-70 MPV 9.3 fL (Normal) Range: 6.2-12.0 PLT 328 K/mm3 (Normal) Range: 150-450 RDW SD 45.1 fL (Abnormal) Range: 35.1-43.9 RDW CV 12.8 % (Normal) Range: 11.6-14.6 MCHC 32.1 {g/gl} (Normal) Range: 32-36 MCH 31.0 pg (Normal) Range: 27.0-32.0 MCV 96.4 fL (Normal) Range: 81-99 HCT 38.0 % (Normal) Range: 37-47 HGB 12.2 g/dL (Normal) Range: 12.0-15.0 RBC 3.94 {M/mm3} (Abnormal) Range: 4.2-5.4 WBC 7.8 K/mm3 (Normal) Range: 4.4-11.0 :05 Comprehensive Metabolic Profil Comments: [facility] [address] [place], [address] GAP 7 (Normal) Range: 5-15 CO2 30.0 mmol/L (Normal) Range: 21.0-32.0 CL 101 mmol/L (Normal) Range: 98-107 K 3.8 mmol/L (Normal) Range: 3.5-5.1 NA 138 mmol/L (Normal) Range: 136-145 T BILI 0.50 mg/dL (Normal) Range: 0.20-1.00 ALT 19 U/L (Normal) Range: 12-78 ALK P 110 U/L (Normal) Range: 45-117 AST 29 U/L (Normal) Range: 15-37 CA 9.3 mg/dL (Normal) Range: 8.5-10.1 A/G 0.8 {RATIO} (Abnormal) Range: 0.9-2.4 GLOB 3.9 g/dL (Abnormal) Range: 2.3-3.5 ALB 3.2 g/dL (Abnormal) Range: 3.4-5.0 T PROT 7.1 g/dL (Normal) Range: 6.4-8.2 BUN/CRE 18.8 {RATIO} (Normal) Range: 10-20 EST GFR - AA 116 mL/min (Normal) Comments: GFR Calc EST GFR 96 mL/min (Normal) Comments: Non- GFR Calc CREAT,SERUM 0.64 mg/dL (Normal) Range: 0.55-1.02 Comments: The validity of the calculated GFR AND GFRAA in patients over70 years has not been determined. Clinical correlation isessential. BUN 12 mg/dL (Normal) Range: 7-18 GLU 94 mg/dL (Normal) Range: 70-110 :05 Lipid Profile Comments: [facility] [address] [place], [place], [phone] VLDL 10 mg/dL (Normal) Range: 5-40 LDL 90 mg/dL (Normal) Range: 0-130 HDL 55 mg/dL (Normal) Comments: The drugs N-Acetylcysteine and Metamizole may falsely deressthis assay. Reference Range HDL <40 mg/dL Low HDL Cholesterol HDL >or= 60 mg/dL High HDL Cholesterol TRIG 48 mg/dL (Normal) Comments: The drugs N-Acetylcysteine and Metamizole may falsely deressthis assay.Serum Triglycerides Reference Interval Normal <150 mg/dL Borderline high 150 - 199 mg/dL High 200 - 499 mg/dL Very High > or = 500 mg/dL CHOL 155 mg/dL (Normal) Comments: <200 mg/dL Desirable 200-240 mg/dL Borderline >240 mg/dL High Risk :05 Microalb:Creat Ratio,Random UR Comments: [facility] [address] [place], [place], [id number] MALB:CREAT 8.6 {mg/g_CRE} (Normal) MICROALBUMIN,UR 5.8 mg/L (Normal) UR CREAT 67.00 mg/dL (Normal) :05 Thyroid Stim Hormone (TSH) Comments: [facility] [address] [place], [place], [phone] TSH 0.65 {uIU/mL} (Normal) Range: 0.358-3.74 :05 Urinalysis, Routine (Dipstick) Comments: How was Urine Obtained? [facility] [address] [place], [address] LEUK ESTERASE 100 /ul (Abnormal) OCCULT BLOOD-UR 25 /ul (Abnormal) NITRITE UR Negative (Normal) UROBILI Normal mg/dL (Normal) PROT DIPSTX Negative mg/dL (Normal) pH UR 6.5 (Normal) Range: 5.0 - 8.0 SP.GR. DIPSTX 1.010 (Normal) Range: 1.002-1.030 KETONE UR Negative mg/dL (Normal) BILIRUBIN URINE Negative mg/dL (Normal) GLUCOSE, UR Normal mg/dL (Normal) CLARITY Clear (Normal) COLOR Yellow (Normal) 26-Cgc-742138:08 TSH (64389) Comments: PATIENT NOT FASTINGPERFORMED BY: [facility] [address]fsf8332 [facility] [id number] Information: [id number] TSH 1.080 {uIU/mL} (Normal) Range: 0.450-4.500 21-Nov-20146:06 CBC W/Diff, Automated Comments: Test performed at:[facility] [address], [place] [id number] Absolute Lymph 2.22 {X10_3/ul} (Normal) Range: 0.83-4.51 Absolute Neut 2.6 {X10_3/uL} (Normal) Range: 2.0-7.7 IM GRAN % 0.000 % (Normal) Range: 0.0-0.9 Comments: IG% - Immature Granulocytes (promyelocytes, myelocytes andmetamyelocytes) > 1% indicates that a LEFT SHIFT is Present. BASO% 0.5 % (Normal) Range: 0-1 EO% 8.3 % (Abnormal) Range: 0-5 MONO% 8.3 % (Normal) Range: 0-10 LY% 38.3 % (Normal) Range: 19-41 NEUT% 44.6 % (Abnormal) Range: 47-70 MPV 9.6 fL (Normal) Range: 6.2-12.0 PLT 271 K/mm3 (Normal) Range: 150-450 RDW SD 45.6 fL (Abnormal) Range: 35.1-43.9 RDW CV 13.1 % (Normal) Range: 11.6-14.6 MCHC 32.8 {g/gl} (Normal) Range: 32-36 MCH 31.3 pg (Normal) Range: 27.0-32.0 MCV 95.5 fL (Normal) Range: 81-99 HCT 39.9 % (Normal) Range: 37-47 HGB 13.1 g/dL (Normal) Range: 12.0-15.0 RBC 4.18 {M/mm3} (Abnormal) Range: 4.2-5.4 WBC 5.8 K/mm3 (Normal) Range: 4.4-11.0 :06 Comprehensive Metabolic Profil Comments: Test performed at:[facility] [address] [place], [place] [id number] GAP 4 (Abnormal) Range: 5-15 CO2 31.0 mmol/L (Normal) Range: 21.0-32.0 CL 105 mmol/L (Normal) Range: 98-107 K 3.8 mmol/L (Normal) Range: 3.5-5.1 NA 140 mmol/L (Normal) Range: 136-145 T BILI 0.40 mg/dL (Normal) Range: 0.20-1.00 ALT 25 U/L (Normal) Range: 12-78 ALK P 113 U/L (Normal) Range: 50-136 AST 19 U/L (Normal) Range: 15-37 CA 9.2 mg/dL (Normal) Range: 8.5-10.1 A/G 1.0 {RATIO} (Normal) Range: 0.9-2.4 GLOB 3.5 g/dL (Normal) Range: 2.7-4.2 ALB 3.5 g/dL (Normal) Range: 3.4-5.0 T PROT 7.0 g/dL (Normal) Range: 6.4-8.2 BUN/CRE 20.0 {RATIO} (Normal) Range: 10-20 CREAT,SERUM 0.6 mg/dL (Normal) Range: 0.6-1.0 BUN 12 mg/dL (Normal) Range: 7-18 GLU 88 mg/dL (Normal) Range: 70-110 :06 Lipid Profile Comments: Test performed at:[facility] [address] [facility] [address] [place], [place] [id number] VLDL 11 mg/dL (Normal) Range: 5-40 LDL 111 mg/dL (Normal) Range: 0-130 HDL 53 mg/dL (Normal) Comments: Reference Range HDL <40 mg/dL Low HDL Cholesterol HDL >or= 60 mg/dL High HDL Cholesterol TRIG 53 mg/dL (Normal) Range: 0-199 Comments: Serum Triglycerides Reference Interval Normal <150 mg/dL Borderline high 150 - 199 mg/dL High 200 - 499 mg/dL Very High > or = 500 mg/dL CHOL 175 mg/dL (Normal) Comments: <200 mg/dL Desirable 200-240 mg/dL Borderline >240 mg/dL High Risk :06 Microalb:Creat Ratio,Random UR Comments: Test performed at:[facility] [address] [place] [address] MALB:CREAT 21.7 {mg/g_CRE} (Normal) MICROALBUMIN,UR 7.8 mg/L (Normal) UR CREAT 35.8 mg/dL (Normal) :06 Thyroid Stim Hormone (TSH) Comments: Test performed at:[facility] [address] [place] [address] TSH 0.46 {uIU/mL} (Normal) Range: 0.358-3.74 :06 Urinalysis, Routine (Dipstick) Comments: How was Urine Obtained? CLEAN CATCHTest performed at:[facility] [address] [place] [address] ; will review at 11/26 appt LEUK ESTERASE 100 /ul (Abnormal) OCCULT BLOOD-UR Negative /ul (Normal) NITRITE UR Negative (Normal) UROBILI Normal mg/dL (Normal) PROT DIPSTX Negative mg/dL (Normal) pH UR 7.0 (Normal) Range: 5.0 - 8.0 SP.GR. DIPSTX 1.005 (Normal) Range: 1.002-1.030 KETONE UR Negative mg/dL (Normal) BILIRUBIN URINE Negative mg/dL (Normal) GLUCOSE, UR Normal mg/dL (Normal) CLARITY Clear (Normal) COLOR Yellow (Normal) :06 Vitamin D,25 Hydroxy Comments: Test performed at:[facility] [address] [place], [place] [id number] Vitamin D 25-OH 23.4 ng/mL (Normal) Comments: Vitamin D 25(OH) Status Range Deficiency <20 ng/mL (50nmol/L) Insuffciency 20 - 30 ng/mL (50 - 75 nmol/L) Sufficiency 30 - 100 ng/mL (75 - 250 nmol/L) Toxicity >100 ng/mL (>250 nmol/L) 17-Sep-20139:09 TSH (14738) Comments: PATIENT NOT FASTINGPERFORMED BY: [place] [id number] [facility] [id number] Information: [id number], [id number] TSH 1.860 {uIU/mL} (Normal) Range: 0.450-4.500 30-Nzf-041254:27 TSH (84860) Comments: PATIENT NOT FASTINGPERFORMED BY: [facility]6[address] [facility] [id number] Information: [id number] TSH 1.760 {uIU/mL} (Normal) Range: 0.450-4.500 :05 CBCMD RBCM NORM C+C {NORMAL} (Normal) PE ADEQUATE (Normal) EOS 6 % (Abnormal) Range: 0-5 MON 2 % (Normal) Range: 0-10 LYMPH 30 % (Normal) Range: 19-41 PMN 62 % (Normal) Range: 47-70 ARNAUD 100 (Normal) ANC 4.0 3/uL (Normal) Range: 2.0-7.7 PLT 277 K/mm3 (Normal) Range: 150-450 RDW 13.2 % (Normal) Range: 11.6-14.6 MCHC 34.8 g/dL (Normal) Range: 32-36 MCH 32.3 pg (Abnormal) Range: 27.0-32.0 MCV 92.8 fL (Normal) Range: 81-99 HCT 38.6 % (Normal) Range: 37-47 HGB 13.4 g/dL (Normal) Range: 12.0-16.0 RBC 4.16 {M/mm3} (Abnormal) Range: 4.2-5.4 WBC 6.4 K/mm3 (Normal) Range: 4.4-11.0 : CMP GAP 7 (Normal) Range: 5-15 CO2 31.0 mmol/L (Normal) Range: 21.0-32.0 CL 104 mmol/L (Normal) Range: 98-107 K 3.9 mmol/L (Normal) Range: 3.5-5.1 NA 142 mmol/L (Normal) Range: 136-145 BIT 0.50 mg/dL (Normal) Range: 0.00-1.00 ALT 28 U/L (Normal) Range: 12-78 ALK 81 U/L (Normal) Range: 50-136 AST 21 U/L (Normal) Range: 15-37 CA 9.3 mg/dL (Normal) Range: 8.5-10.1 AG 1.1 {RATIO} (Normal) Range: 0.9-2.4 GLOB 3.4 g/dL (Normal) Range: 2.7-4.2 ALB 3.7 g/dL (Normal) Range: 3.4-5.0 TPROT 7.1 g/dL (Normal) Range: 6.4-8.2 BC 20.0 {RATIO} (Normal) Range: 10-20 GFRAA 107 mL/min (Normal) GFR 88 mL/min (Normal) CREAT 0.7 mg/dL (Normal) Range: 0.6-1.0 BUN 14 mg/dL (Normal) Range: 7-18 GLU 95 mg/dL (Normal) Range: 70-110 :05 LIPID VLDL 13 mg/dL (Normal) Range: 5-40 LDL 137 mg/dL (Abnormal) Range: 0-130 HDL 63 mg/dL (Normal) Comments: Reference Range HDL <40 mg/dL Low HDL Cholesterol HDL >or= 60 mg/dL High HDL Cholesterol TRIG 66 mg/dL (Normal) Comments: Serum Triglycerides Reference Interval Normal <150 mg/dL Borderline high 150 - 199 mg/dL High 200 - 499 mg/dL Very High > or = 500 mg/dL CHOL 213 mg/dL (Abnormal) Comments: <200 mg/dL Desirable 200-240 mg/dL Borderline >240 mg/dL High Risk : MIACRE tMICROCREAT 20.8 {mg/g_CRE} (Normal) MIALB 10.9 mg/L (Normal) CREU 52.4 mg/dL (Normal) :05 TSH 1.80 {uIU/mL} (Normal) Range: 0.358-3.74 :05 UAC UMUC 0 SEEN {/hpf} (Normal) UBAC 0 SEEN {/hpf} (Normal) UEPIS 0 SEEN {/hpf} (Normal) Range: 5-10 URBC 0 SEEN {/hpf} (Normal) Range: 0-5 UWBC 0 SEEN {/hpf} (Normal) Range: 0-5 DOMINIQUE TRACE (Abnormal) UOB NEGATIVE (Normal) ALEXANDRO NEGATIVE (Normal) UROBU 0.2 EU/dl (Normal) Range: 0.2 - 1.0 JESUS 6.5 (Normal) Range: 5.0-8.0 uPROTU NEGATIVE (Normal) SGU 1.010 (Normal) Range: 1.002-1.030 KETU NEGATIVE mg/dL (Normal) BILIU NEGATIVE (Normal) GLUR NEGATIVE (Normal) UCLAR CLEAR (Normal) UCOL YELLOW (Normal) :05 VITD 24.0 ng/mL (Abnormal) Range: 30.0-100.0 Comments: Vitamin D deficiency has been defined by the [place] of[place] and an Endocrine Society practice guideline as alevel of serum 25-OH vitamin D less than 20 ng/mL (1,2).The Endocrine Society went on to further define vitamin Dinsufficiency as a level between 21 and 29 ng/mL (2).1. IOM ([place] of [employer]). 2010. Dietary reference intakes for calcium and D. [place]: The National Academies Press.2. Ham MF, Alvino NC, Ileana AYALA, et al. Evaluation, treatment, and prevention of vitamin D deficiency: an Endocrine Society clinical practice guideline. JCEM. 2010; 96(7): 1911-30.Performed at: - [facility] [id number] Director: Stephanie Young MD, Phone: [phone] 25-Feb-20119:43 TSH (99860) Comments: PATIENT NOT FASTINGPERFORMED BY: [facility] [id number] Information: [id number] TSH 2.940 {uIU/mL} (Normal) Range: 0.450-4.500 :43 CALCIFIDIOL (42512) VIT D 25 Comments: PATIENT NOT FASTINGPERFORMED BY: JOSE DAVID [facility] Dzgdts77[address]Dublin [place] [id number] Vitamin D, 25-Hydroxy 24.5 ng/mL (Abnormal) Range: 32.0-100.0 Comments: Recent studies consider the lower limit of 32.0 ng/mL to be athreshold for optimal health.Juarez BW. J Nutr. 2004;135(2):317-22. 48-Gkm-606548:08 PARATHORMONE (71670) Comments: PATIENT NOT FASTINGPERFORMED BY: CB [facility] Pfwuqp6425 [address] RoadDublin [place] [id number] Information: [id number] PTH, Intact 47 pg/mL (Normal) Range: 15-65 :06 Microscopic Examination Comments: PATIENT NOT FASTINGPERFORMED BY: CB [facility] Kalfeu[address] [place] [id number] Bacteria Few (Normal) Mucus Threads Present (Normal) Epithelial Cells (non renal) None seen {/hpf} (Normal) Range: 0 - 10 RBC None seen {/hpf} (Normal) Range: 0 - 3 WBC 0-5 {/hpf} (Normal) Range: 0 - 5 :06 Vitamin D Hydroxy (74724) Comments: PATIENT NOT FASTINGPERFORMED BY: CB [facility] Jwxrsu9030 [address]Dublin [place] [id number] Vitamin D, 25-Hydroxy 27.0 ng/mL (Abnormal) Range: 32.0-100.0 Comments: Recent studies consider the lower limit of 32.0 ng/mL to be athreshold for optimal health.Juarez BW. J Nutr. 2004;135(2):317-22. :06 TSH (84969) Comments: PATIENT NOT FASTINGPERFORMED BY: CB [facility] Utjssl1491 [address]Dublin [place] [id number] TSH 4.620 {uIU/mL} (Abnormal) Range: 0.450-4.500 :06 URINALYSIS, W/ MICRO (59488) Comments: PATIENT NOT FASTINGPERFORMED BY: [facility] GamesJFK Medical CenterXonuyh6603 [facility] [id number] Microscopic Examination MICRON (Normal) Comments: Microscopic follows if indicated. Microscopic Examination See below: (Normal) Nitrite, Urine Negative (Normal) Bilirubin Negative (Normal) Ketones Negative (Normal) Occult Blood Negative (Normal) Urobilinogen,Semi-Qn 0.2 mg/dL (Normal) Range: 0.0-1.9 Glucose Negative (Normal) Protein Negative (Normal) Appearance Clear (Normal) Urine-Color Yellow (Normal) WBC Esterase Negative (Normal) pH 6.5 (Normal) Range: 5.0-7.5 Specific Rousseau 1.007 (Normal) Range: 1.005-1.030 :06 MICROALBUMIN: CREATININE RATIO Comments: PATIENT NOT FASTINGPERFORMED BY: [facility]Asc[facility]6370 [facility] [id number] (79233) AND (63622) Microalb/Creat Ratio 13.5 {mg/g_creat} (Normal) Range: 0.0-30.0 Creatinine, Urine 19.3 mg/dL (Normal) Range: 15.0-278.0 Microalbumin, Urine 2.6 ug/mL (Normal) Range: 0.0-17.0 :06 METABOLIC PANEL, COMPREHENSIVE Comments: PATIENT NOT FASTINGPERFORMED BY: [facility]6370 [facility] [id number] (50540) Alkaline Phosphatase, S 81 [iU]/L (Normal) Range: 25-165 ALT (SGPT) 20 [iU]/L (Normal) Range: 0-40 AST (SGOT) 20 [iU]/L (Normal) Range: 0-40 A/G Ratio 1.8 (Normal) Range: 1.1-2.5 Bilirubin, Total 0.3 mg/dL (Normal) Range: 0.0-1.2 Globulin, Total 2.4 g/dL (Normal) Range: 1.5-4.5 Albumin, Serum 4.2 g/dL (Normal) Range: 3.6-4.8 Protein, Total, Serum 6.6 g/dL (Normal) Range: 6.0-8.5 Calcium, Serum 10.0 mg/dL (Normal) Range: 8.6-10.2 Carbon Dioxide, Total 28 mmol/L (Normal) Range: 20-32 Chloride, Serum 103 mmol/L (Normal) Range: 97-108 Potassium, Serum 4.1 mmol/L (Normal) Range: 3.5-5.2 Sodium, Serum 143 mmol/L (Normal) Range: 135-145 BUN/Creatinine Ratio 21 (Normal) Range: 11-26 eGFR If Africn Am 99 mL/min/1.73 (Normal) Comments: Note: A persistent eGFR <60 mL/min/1.73 m2 (3 months or more) mayindicate chronic kidney disease. An eGFR >59 mL/min/1.73 m2 with anelevated urine protein also may indicate chronic kidney disease.Calculated using CKD-EPI formula. eGFR If NonAfricn Am 86 mL/min/1.73 (Normal) BUN 15 mg/dL (Normal) Range: 8-27 Creatinine, Serum 0.72 mg/dL (Normal) Range: 0.57-1.00 Glucose, Serum 74 mg/dL (Normal) Range: 65-99 23-Sep-20108:06 CBC WITH MANUAL DIFF Comments: PATIENT NOT FASTINGPERFORMED BY: LabCoJFK Medical CenterTcxvev7534 [facility] [id number] Information: [id number] (01193) Immature Grans (Abs) 0.0 {x10E3/uL} (Normal) Range: 0.0-0.1 Immature Granulocytes 0 % (Normal) Range: 0-1 Baso (Absolute) 0.0 {x10E3/uL} (Normal) Range: 0.0-0.2 Eos (Absolute) 0.6 {x10E3/uL} (Abnormal) Range: 0.0-0.4 Monocytes(Absolute) 0.5 {x10E3/uL} (Normal) Range: 0.1-1.0 Lymphs (Absolute) 1.9 {x10E3/uL} (Normal) Range: 0.7-4.5 Neutrophils (Absolute) 3.3 {x10E3/uL} (Normal) Range: 1.8-7.8 Basos 1 % (Normal) Range: 0-3 Eos 10 % (Abnormal) Range: 0-7 Lymphs 30 % (Normal) Range: 14-46 Monocytes 8 % (Normal) Range: 4-13 Neutrophils 51 % (Normal) Range: 40-74 Platelets 306 {x10E3/uL} (Normal) Range: 140-415 MCH 31.0 pg (Normal) Range: 27.0-34.0 MCHC 32.7 g/dL (Normal) Range: 32.0-36.0 RDW 14.0 % (Normal) Range: 11.7-15.0 MCV 95 fL (Normal) Range: 80-98 Hematocrit 42.5 % (Normal) Range: 34.0-44.0 Hemoglobin 13.9 g/dL (Normal) Range: 11.5-15.0 RBC 4.49 {x10E6/uL} (Normal) Range: 3.80-5.10 WBC 6.3 {x10E3/uL} (Normal) Range: 4.0-10.5 :05 CBCD,SMEAR DIFF EOS 6 % (Abnormal) Range: 0-5 PLT EST SeeNote (Normal) Comments: Result: ADEQUATE RED CELL MORPH SeeNote {NORMAL} (Normal) Comments: Result: NORM C+C BAND 1 % (Normal) Range: 0-5 CELLS COUNTED 100 (Normal) LYMPH 46 % (Abnormal) Range: 19-41 MONOCYTE 1 % (Normal) Range: 0-10 SEGS 46 % (Abnormal) Range: 47-70 ABSOLUTE NEUT 3.1 3/uL (Normal) Range: 2.0-7.7 HCT 41.0 % (Normal) Range: 37-47 HGB 13.7 g/dL (Normal) Range: 12.0-16.0 MCH 31.9 pg (Normal) Range: 27.0-32.0 MCHC 33.4 g/dL (Normal) Range: 32-36 MCV 95.5 fL (Normal) Range: 81-99 PLT 263 K/mm3 (Normal) Range: 150-450 RBC 4.30 {M/mm3} (Normal) Range: 4.2-5.4 RDW 13.4 % (Normal) Range: 11.6-14.6 WBC 6.9 K/mm3 (Normal) Range: 4.4-11.0 :05 COMP METABOLIC CO2 30.0 mmol/L (Normal) Range: 21.0-32.0 GAP 12 (Normal) Range: 5-15 A/G 1.0 {RATIO} (Normal) Range: 0.9-2.4 ALB 3.6 g/dL (Normal) Range: 3.4-5.0 ALK P 80 U/L (Normal) Range: 50-136 ALT 24 U/L (Normal) Range: 12-78 AST 16 U/L (Normal) Range: 15-37 CA 9.3 mg/dL (Normal) Range: 8.5-10.1 CL 101 mmol/L (Normal) Range: 98-107 GLOB 3.5 g/dL (Normal) Range: 2.7-4.2 K 3.9 mmol/L (Normal) Range: 3.5-5.1 NA 143 mmol/L (Normal) Range: 136-145 T BILI 0.30 mg/dL (Normal) Range: 0.00-1.00 T PROT 7.1 g/dL (Normal) Range: 6.4-8.2 BUN 13 mg/dL (Normal) Range: 7-18 BUN/CRE 16.3 {RATIO} (Normal) Range: 10-20 CREAT,SERUM 0.8 mg/dL (Normal) Range: 0.6-1.0 EST GFR 76 mL/min (Normal) EST GFR - AA 92 mL/min (Normal) GLU 91 mg/dL (Normal) Range: 70-110 :05 COMPLETE UA BACTERIA 0 SEEN {/hpf} (Normal) MUCUS, URINE 0 SEEN {/hpf} (Normal) RBC-UA 0 SEEN {/hpf} (Normal) Range: 0-5 WBC 0 SEEN {/hpf} (Normal) Range: 0-5 LEUK ESTERASE SeeNote (Normal) Comments: Result: NEGATIVE OCCULT BLOOD-UR SeeNote (Normal) Comments: Result: NEGATIVE NITRITE UR SeeNote (Normal) Comments: Result: NEGATIVE BILIRUBIN URINE SeeNote (Normal) Comments: Result: NEGATIVE KETONE UR SeeNote mg/dL (Normal) Comments: Result: NEGATIVE pH UR 7.0 (Normal) Range: 5.0-8.0 PROT DIPSTX SeeNote (Normal) Comments: Result: NEGATIVE SP.GR. DIPSTX <=1.005 (Normal) Range: 1.002-1.030 UROBILI 0.2 EU/dl (Normal) Range: 0.2 - 1.0 CLARITY CLEAR (Normal) GLUCOSE, UR SeeNote (Normal) Comments: Result: NEGATIVE COLOR YELLOW (Normal) :05 LIPID CHOL 191 mg/dL (Normal) Comments: <200 mg/dL [id number] mg/dL Borderline>240 mg/dL High Risk HDL 57 mg/dL (Normal) Comments: Reference RangeHDL <40 mg/dL Low HDL CholesterolHDL >or= 60 mg/dL High HDL Cholesterol LDL 122 mg/dL (Normal) Range: 0-130 TRIG 58 mg/dL (Normal) Comments: Serum Triglycerides Reference IntervalNormal <150 mg/dLBorderline high 150 - 199 mg/dLHigh 200 - 499 mg/ dLVery High > or = 500 mg/dL VLDL 12 mg/dL (Normal) Range: 5-40 :05 MICROALB:CRE UR MALB:CREAT <TEST NOT PERFORMED> {mg/g_CRE} (Normal) MICROALBUMIN,UR < 5.0 mg/L (Normal) UR CREAT 33.1 mg/dL (Normal) :05 TSH 2.89 {uIU/mL} (Normal) Range: 0.358-3.74 :05 VIT D,25 98557 29.2 ng/mL (Abnormal) Range: 32.0-100.0 Comments: Recent studies consider the lower limit of 32.0 ng/mL to daren threshold for optimal health.Larry BARRERA. J Nutr. 2004;135(2):317-22.Performed at: [facility] [id number] Director: Caprice Woods MD 84-Iza-91623:58 URINE VENICE CULTURE-DESMOND COL Comments: PATIENT NOT FASTINGClinical Information: SRC:UR ADD [id number] PERFORMED BY: [facility] [id number] COUNT ([id number]) Result 1 BETAGB (Normal) Comments: Beta hemolytic Streptococcus, group B10,000- 25,000 colony forming units per mLPenicillin continues to be the drug of choice for infectionscaused by beta hemolytic streptococci in groups A,B,C and G.No p enicillin resistance has been described among theseorganisms and surveillance for emerging resistance is notrecommended. (BLANCA Rosenbaum. Clinical Microbiology Newsletter,1993; ALEJANDRO Santamaria et al. Diagn ostic Microbiology andInfectious Disease, November,.) Urine Final report (Normal) Culture,Comprehensive :59 Urinalysis, Office (23561) UA - BILIRUBIN Negative (Normal) UA - BLOOD Non Hemolyzed Trace (Normal) UA - GLUCOSE Negative (Normal) UA - KETONES Negative mg/dL (Normal) UA - LEUKOCYTE Negative (Normal) ESTERASE UA - NITRITE Negative (Normal) UA - PH 7.0 (Normal) UA - PROTEIN Negative mg/dL (Normal) UA - SPECIFIC GRAVITY 1.000 (Normal) URINE UROBILINGN DESMOND 2 mg/dL (Normal) TIMED TSH 3.448 {uIU/mL} Comments: PERFORMED BY: [facility]Asc[facility]6370 [facility] [id number] 5:11 (Normal) Range: 0.450-4.500 TSH 4.26 {uIU/mL} Range: 0.34-4.82 :17 (Normal) :18 CBC HCT 38.9 % (Normal) Range: 37-47 HGB 13.3 g/dL (Normal) Range: 12.0-16.0 MCH 31.6 pg (Normal) Range: 27.0-32.0 MCHC 34.1 g/dL (Normal) Range: 32-36 MCV 92.7 fL (Normal) Range: 81-99 PLT 327 K/mm3 (Normal) Range: 150-450 RBC 4.19 {M/mm3} (Abnormal) Range: 4.2-5.4 RDW 13.1 % (Normal) Range: 11.6-14.6 WBC 5.2 K/mm3 (Normal) Range: 4.4-11.0 :18 COMP METABOLIC A/G 1.1 {RATIO} (Normal) Range: 0.9-2.4 ALB 3.6 g/dL (Normal) Range: 3.4-5.0 ALK P 99 U/L (Normal) Range: 50-136 ALT 41 [iU]/L (Normal) Range: 30-65 AST 25 U/L (Normal) Range: 15-37 BUN 16 mg/dL (Normal) Range: 7-18 BUN/CRE 20.0 {RATIO} (Normal) Range: 10-20 CA 9.5 mg/dL (Normal) Range: 8.5-10.1 CL 100 mmol/L (Normal) Range: 98-107 CO2 30.7 mmol/L (Abnormal) Range: 22.0-29.0 CREAT,SERUM 0.8 mg/dL (Normal) Range: 0.6-1.0 GAP 8 (Normal) Range: 5-15 GLOB 3.2 g/dL (Normal) Range: 2.3-3.5 GLU 89 mg/dL (Normal) Range: 70-110 K 3.7 mmol/L (Normal) Range: 3.5-5.1 NA 139 mmol/L (Normal) Range: 136-145 T BILI 0.39 mg/dL (Normal) Range: 0.00-1.00 T PROT 6.8 g/dL (Normal) Range: 6.4-8.2 :18 COMPLETE UA BACTERIA 0 SEEN {/hpf} (Normal) BILIRUBIN URINE SeeNote (Normal) Comments: Result: NEGATIVE CLARITY CLEAR (Normal) COLOR YELLOW (Normal) GLUCOSE, UR SeeNote (Normal) Comments: Result: NEGATIVE KETONE UR SeeNote mg/dL (Normal) Comments: Result: NEGATIVE LEUK ESTERASE SeeNote (Normal) Comments: Result: NEGATIVE MUCUS, URINE 0 SEEN {/hpf} (Normal) NITRITE UR SeeNote (Normal) Comments: Result: NEGATIVE OCCULT BLOOD-UR SeeNote (Normal) Comments: Result: NEGATIVE pH UR 7.0 (Normal) Range: 5.0-8.0 PROT DIPSTX SeeNote (Normal) Comments: Result: NEGATIVE RBC-UA 0 SEEN {/hpf} (Normal) Range: 0-5 SP.GR. DIPSTX 1.010 (Normal) Range: 1.002-1.030 SQUAM EPI 0 SEEN {/hpf} (Normal) Range: 5-10 UROBILI 0.2 EU/dl (Normal) Range: 0.2 - 1.0 WBC 0 SEEN {/hpf} (Normal) Range: 0-5 :18 PFLIP CHOL 203 mg/dL (Abnormal) Comments: <200 mg/dL Desirable 200-240 mg/dL Borderline >240 mg/dL High Risk HDL 54 mg/dL (Normal) Comments: Reference Range HDL <40 mg/dL Low HDL Cholesterol HDL >or= 60 mg/dL High HDL Cholesterol LDL 141 mg/dL (Abnormal) Range: 0-130 TRIG 38 mg/dL (Normal) Comments: Serum Triglycerides Reference Interval Normal <150 mg/dL Borderline high 150 - 199 mg/dL High 200 - 499 mg/dL Very High > or = 500 mg/dL VLDL 8 mg/dL (Normal) Range: 5-40 :18 TSH 1.50 {uIU/mL} (Normal) Range: 0.34-4.82 Plan of Care Name Dates Details Instructions Metastatic breast cancer : Reviewed Lab Indication: Metastatic breast cancer Metastatic breast cancer : Reviewed Diagnostic Tests Indication: Metastatic breast cancer Metastatic breast cancer : Reviewed Railroad Cook Letter Indication: Metastatic breast cancer Benign essential hypertension : Continue Current Prescription(s) Indication: Benign essential hypertension Hypercholesterolemia : Cholesterol mgmt Indication: Hypercholesterolemia Benign essential hypertension : HTN/CAD Red Flags Indication: Benign essential hypertension Metastatic breast cancer : Reviewed Lab Indication: Metastatic breast cancer Metastatic breast cancer : Reviewed Diagnostic Tests Indication: Metastatic breast cancer Metastatic breast cancer : Reviewed Railroad Cook Letter Indication: Metastatic breast cancer Non-smoker : Eprescribed prescriptions (G8553) Indication: Non-smoker Benign essential hypertension : Follow up in 3 weeks Indication: Benign essential hypertension Benign essential hypertension : BP MONITORING - SELF Indication: Benign essential hypertension Vasovagal syncope : Reviewed Lab Indication: Vasovagal syncope Vasovagal syncope : Reviewed Diagnostic Tests Indication: Vasovagal syncope Sprain of right ankle, initial encounter : Reviewed Lab Indication: Sprain of right ankle, initial encounter Sprain of right ankle, initial encounter : Reviewed Diagnostic Tests Indication: Sprain of right ankle, initial encounter Sprain of right ankle, initial encounter : Reviewed Railroad Cook Letter Indication: Sprain of right ankle, initial encounter Metastatic breast cancer : Reviewed Railroad Cook Letter Indication: Metastatic breast cancer Benign essential hypertension : Follow up in 6 months Indication: Benign essential hypertension Benign essential hypertension : HTN/CAD Red Flags Indication: Benign essential hypertension Hypercholesterolemia : Cholesterol mgmt Indication: Hypercholesterolemia Hypothyroidism, unspecified : Reviewed Lab Indication: Hypothyroidism, unspecified Benign essential hypertension : Reviewed Lab Indication: Benign essential hypertension Non-smoker : Follow up in 3 months with Kf is she can get on her wait list Indication: Non-smoker Hypothyroidism, unspecified : Reviewed Lab Indication: Hypothyroidism, unspecified Benign essential hypertension : Eprescribed prescriptions (G8553) Indication: Benign essential hypertension Vitamin D deficiency, unspecified : Follow up in 6 months Indication: Vitamin D deficiency, unspecified Knee pain, acute, right : Follow up in 2 weeks Indication: Knee pain, acute, right Benign essential hypertension : Follow up in 6 months Indication: Benign essential hypertension Hypercholesterolemia : Cholesterol mgmt Indication: Hypercholesterolemia Hypercholesterolemia : Reviewed Lab Indication: Hypercholesterolemia Osteoporosis : Reviewed Diagnostic Tests Indication: Osteoporosis Benign essential hypertension : Allergies: allergies Indication: Benign essential hypertension Benign essential hypertension : Eprescribed prescriptions (G8553) Indication: Benign essential hypertension Benign essential hypertension : Eprescribed prescriptions (G8553) Indication: Benign essential hypertension Benign essential hypertension : Follow up in 6 months Indication: Benign essential hypertension Osteoporosis : *Calcium Education (KF) Indication: Osteoporosis Hypercholesterolemia : Cholesterol mgmt Indication: Hypercholesterolemia Benign essential hypertension : HTN/CAD Red Flags Indication: Benign essential hypertension Benign essential hypertension : Follow up in 6 months-- gen med plus do ekg Indication: Benign essential hypertension Hypothyroidism, unspecified : Reviewed Lab Indication: Hypothyroidism, unspecified Benign essential hypertension : Diet, Exercise, and Wt loss Indication: Benign essential hypertension Benign essential hypertension : HTN/CAD Red Flags Indication: Benign essential hypertension Hypercholesterolemia : Cholesterol mgmt Indication: Hypercholesterolemia Dysthymic disorder : Eprescribed prescriptions (G8553) Indication: Dysthymic disorder Benign essential hypertension : Follow up in 4 months Indication: Benign essential hypertension Hypercholesterolemia : Cholesterol mgmt Indication: Hypercholesterolemia Benign essential hypertension : HTN/CAD Red Flags Indication: Benign essential hypertension Anxiety : Anxiety: anxiety Indication: Anxiety Acute sinusitis, unspecified : *URI Symptoms Indication: Acute sinusitis, unspecified Acute sinusitis, unspecified : *URI Treatment Indication: Acute sinusitis, unspecified LARYNGITIS : Laryngitis Education Indication: LARYNGITIS Hypercholesterolemia : *Cholesterol - Nonprescription Treatment Indication: Hypercholesterolemia Hypercholesterolemia : Cholesterol mgmt Indication: Hypercholesterolemia Benign essential hypertension : Follow up in 6 months Indication: Benign essential hypertension Vitamin D deficiency, unspecified : *ERGOCALCIFEROL DOSAGE PER SHEWMON Indication: Vitamin D deficiency, unspecified Benign essential hypertension : BP MONITORING - SELF Indication: Benign essential hypertension Benign essential hypertension : FOLLOW UP IN 6 MONTHS Indication: Benign essential hypertension Osteopenia : *Calcium Education (KF) Indication: Osteopenia Benign essential hypertension : HTN/CAD Red Flags Indication: Benign essential hypertension Benign essential hypertension : Diet, Exercise, and Wt loss Indication: Benign essential hypertension Hypercholesterolemia : CHOLESTEROL MGMT. Indication: Hypercholesterolemia Hypercholesterolemia : *Cholesterol - Nonprescription Treatment Indication: Hypercholesterolemia Hypercholesterolemia : *Cholesterol - Medication Side Effects Indication: Hypercholesterolemia Osteoporosis : Bisphosphonate Education Indication: Osteoporosis Hypercholesterolemia : CHOLESTEROL MGMT. Indication: Hypercholesterolemia Hypercholesterolemia : Cholesterol - Medication Side Effects Indication: Hypercholesterolemia Hypercholesterolemia : Cholesterol - Nonprescription Treatment Indication: Hypercholesterolemia Benign essential hypertension : HTN/CAD Red Flags Indication: Benign essential hypertension Hematuria : Follow up for recheck urine 1 week after complete antibiotic Indication: Hematuria Hematuria : UTI treatment Indication: Hematuria Hematuria : Water in diet, brief version Indication: Hematuria Chronic cough : *URI Treatment Indication: Chronic cough Chronic cough : URI Symptoms Indication: Chronic cough Hypercholesterolemia : Reviewed Lab:FLP FROM DR FUENTES LDL 132 HDL 51 Indication: Hypercholesterolemia Hypercholesterolemia : CHOLESTEROL MGMT. Indication: Hypercholesterolemia Hypercholesterolemia : Cholesterol - Medication Side Effects Indication: Hypercholesterolemia Hypercholesterolemia : Cholesterol - Nonprescription Treatment Indication: Hypercholesterolemia Osteoporosis : Well Female Maintenance (KF) Indication: Osteoporosis Hypercholesterolemia : CHOLESTEROL MGMT. Indication: Hypercholesterolemia Hypercholesterolemia : Cholesterol - Nonprescription Treatment Indication: Hypercholesterolemia Hypercholesterolemia : Cholesterol - Medication Side Effects Indication: Hypercholesterolemia Osteoporosis : Well Female Maintenance (KF) Indication: Osteoporosis Planned Observations TSH (THYROID STIMULATING HORMONE) (56376)Indication: Hypothyroidism, unspecified On: 81-Iee-289039:56 Request TSH (THYROID STIMULATING HORMONE) (19579)Indication: Hypothyroidism, unspecified On: 24-Los-619348:36 Request T4, FREE (THYROXINE) (64652)Indication: Hypothyroidism, unspecified On: 20-Mgj-058350:33 Request T3, FREE (TRIDOTHYRONINE) (91849)Indication: Hypothyroidism, unspecified On: 15-Fay-660596:33 Request CALCIFIDIOL (04249) VIT D 25Indication: Vitamin D deficiency, unspecified On: :47 Request TSH (12994)Indication: Hypothyroidism, unspecified On: :46 Request URINALYSIS, W/ MICRO (01722)Indication: Benign essential hypertension On: :46 Request MICROALBUMIN: CREATININE RATIO (54233) AND (34561)Indication: Benign essential hypertension On: :46 Request METABOLIC PANEL, COMPREHENSIVE (13416)Indication: Benign essential hypertension On: :46 Request LIPID PANEL (47857)Indication: Hypercholesterolemia On: :46 Request CBC W/AUTO DIFF WBC (45416)Indication: Benign essential hypertension On: :46 Request URINE VENICE CULTURE-DESMOND COL COUNT (40595)Indication: UTI symptoms On: 49-Fnc-982734:31 Request LIPID PANEL (43252)Indication: Hypercholesterolemia On: :55 Request Comments: November 2016 MICROALBUMIN: CREATININE RATIO (61422) AND (67923)Indication: Benign essential hypertension On: :54 Request Comments: November 2016 URINALYSIS ([id number])Indication: Benign essential hypertension On: :54 Request Comments: November 2016 CBC, Platelets & Auto Diff ([id number])Indication: Benign essential hypertension On: :54 Request Comments: November 2016 Metabolic Panel, Comprehensive ([id number])Indication: Benign essential hypertension On: :54 Request Comments: November 2016 TSH ([id number])Indication: Hypothyroidism, unspecified On: :53 Request Comments: due in November 2016 Vitamin D Hydroxy ([id number])Indication: Vitamin D deficiency, unspecified On: 06-Pko-481718:01 Request URINALYSIS, W/ MICRO ([id number])Indication: Benign essential hypertension On: 73-Brp-910988:00 Request MICROALBUMIN: CREATININE RATIO ([id number]) AND ([id number])Indication: Benign essential hypertension On: 32-Nix-785663:00 Request METABOLIC PANEL, COMPREHENSIVE ([id number])Indication: Benign essential hypertension On: 48-Bdw-916380:00 Request LIPID PANEL ([id number])Indication: Hypercholesterolemia On: 82-Rta-459651:00 Request CBC WITH MANUAL DIFF ([id number])Indication: Benign essential hypertension On: 80-Gib-083489:00 Request TSH ([id number])Indication: Hypothyroidism, unspecified On: 55-Omj-903231:00 Request Vitamin D Hydroxy ([id number])Indication: Osteoporosis On: :44 Request URINALYSIS, W/ MICRO ([id number])Indication: Benign essential hypertension On: :41 Request MICROALBUMIN: CREATININE RATIO ([id number]) AND ([id number])Indication: Benign essential hypertension On: :41 Request METABOLIC PANEL, COMPREHENSIVE ([id number])Indication: Benign essential hypertension On: :41 Request LIPID PANEL ([id number])Indication: Benign essential hypertension On: :41 Request CBC WITH MANUAL DIFF ([id number])Indication: Benign essential hypertension On: :41 Request TSH ([id number])Indication: Hypothyroidism, unspecified On: 58-Iyq-964404:40 Request TSH ([id number])Indication: Hypothyroidism, unspecified On: 15-Xfa-306872:09 Request LIPID PANEL ([id number])Indication: Hypercholesterolemia On: :12 Request METABOLIC PANEL, COMPREHENSIVE ([id number])Indication: Hypercholesterolemia On: :12 Request TSH ([id number])Indication: Hypothyroidism, unspecified On: :12 Request Planned Encounters Medical; General Medical - On: 03-May-2018 7:45 [facility] Tayla Espinal DO, DO, Tayla Velez DO Planned Procedures ELECTROCARDIOGRAM, COMPLETE (ECG) On: 06-Dec-2017 Intent ([id number])By: Tayla Espinal DO Comments: nsr no acute chg DO, Tayla Espinal DO, Tayla PNEUM VAC ADLT/IMUMNOSPR, SBC/INTRM On: 24-Mar-2017 Intent ([id number])By: Tayla Espinal DO Comments: lot:[id number]:IM left deltoid dose:0.5ml given by:hayley Us LPN DO, Tayla Velez DO ELECTROCARDIOGRAM, COMPLETE (ECG) On: 04-Jan-2017 Intent ([id number])By: Tayla Espinal DO Comments: nsr no acute cgh DO, Tayla Espinal DO, Tayla PHYSICAL THERAPY EVALUATION ([id number])By: On: 11-May-2015 Intent Elizabeth Villanueva CNP Radiology - Knee - RightBy: Kay MUÑOZ, On: 11-May-2015 Intent Elizabeth Watts MAMMOGRAM, SCREENING, BOTH BREAST On: 22-Aug-2014 Intent ([id number])By: Tayla Espinal DO Comments: send results to Tayla Matthews DO, DO, Kathleen DEXA SCAN AXIAL SKELETON ([id number])By: On: 22-Aug-2014 Intent Tayla Espinal DO, DO, Kathleen Comments: send results to Tayla Rondon DO Eprescribed prescriptions ([id number])By: On: 13-Sep-2012 Intent Lilian Richardson LPN Inhaler Demonstration ([id number])By: Kay On: 04-Jul-2012 Intent Elizabeth MUÑOZ Inhaler Demonstration ([id number])By: [place] On: 04-Jul-2012 Intent WANDA Josefa Aerosol Treatment ([id number])By: Kay MUÑOZ, On: 04-Jul-2012 Intent Josefa Eprescribed prescriptions ([id number])By: On: 27-May-2011 Intent Kay MUÑOZ Josefa EKG ([id number])By: Tayla Espinal DO On: 23-Sep-2010 Intent Tayla Espinal DO, DO, Kathleen Comments: nsr no acute chg Eprescribed prescriptions ([id number])By: On: 23-Sep-2010 Intent Tayla Espinal DO, DO, Kathleen Fearon DO, Kathleen EKG ([id number])By: Tayla Espinal DO On: 01-Jun-2009 Intent Tayla Espinal DO, DO, Kathleen Comments: nsr no acute changes SPECIMEN HANDLING/TRANSPORT ([id number])By: On: 28-Nov-2008 Intent Keren Wilde LPN Radiology - ChestBy: Justyna Head MD On: 20-May-2008 Intent Comments: if not better 2 weeks Instructions Name Dates Details Non-smoker : How to access health information online Indication: Non-smoker Non-smoker : How to access health information online - Detail Indication: Non-smoker Non-smoker : Patient Instructions Indication: Non-smoker Non-smoker : How to access health information online Indication: Non-smoker Non-smoker : How to access health information online - Detail Indication: Non-smoker Non-smoker : Patient Instructions Indication: Non-smoker BMI 24.0-24.9, adult : How to access health information online Indication: BMI 24.0-24.9, adult BMI 24.0-24.9, adult : How to access health information online - Detail Indication: BMI 24.0-24.9, adult BMI 24.0-24.9, adult : Patient Instructions Indication: BMI 24.0-24.9, adult BMI 26.0-26.9,adult : How to access health information online Indication: BMI 26.0-26.9,adult BMI 26.0-26.9,adult : How to access health information online - Detail Indication: BMI 26.0-26.9,adult BMI 26.0-26.9,adult : Patient Instructions Indication: BMI 26.0-26.9,adult Non-smoker : How to access health information online Indication: Non-smoker Non-smoker : How to access health information online - Detail Indication: Non-smoker Non-smoker : Patient Instructions Indication: Non-smoker Benign essential hypertension : How to access health information online Indication: Benign essential hypertension Benign essential hypertension : How to access health information online - Detail Indication: Benign essential hypertension Benign essential hypertension : Patient Instructions Indication: Benign essential hypertension Vitamin D deficiency, unspecified : Patient Instructions Indication: Vitamin D deficiency, unspecified Osteoporosis : Patient Instructions Indication: Osteoporosis Benign essential hypertension : How to access health information online Indication: Benign essential hypertension Benign essential hypertension : How to access health information online - Detail Indication: Benign essential hypertension Vitamin D deficiency, unspecified : Patient Instructions Indication: Vitamin D deficiency, unspecified Vitamin D deficiency, unspecified : How to access health information online Indication: Vitamin D deficiency, unspecified Vitamin D deficiency, unspecified : How to access health information online - Detail Indication: Vitamin D deficiency, unspecified Vitamin D deficiency, unspecified : Patient Instructions Indication: Vitamin D deficiency, unspecified Dysthymic disorder : How to access health information online Indication: Dysthymic disorder Dysthymic disorder : How to access health information online - Detail Indication: Dysthymic disorder Dysthymic disorder : Patient Instructions Indication: Dysthymic disorder Anxiety : Patient Instructions Indication: Anxiety Advance Directives Name Dates Details Immunization Registry [facility] - Effective on 03/24/2017. Effective: 24-Mar-2017 Expiration date unspecified Encounters Lab Order On: 01-Feb-2018 14:54 Encounter Diagnosis: Hypothyroidism, unspecified End: 01-Feb-2018 14:57 [facility] Office Visit On: 31-Jan-2018 9:11 Encounter Diagnosis: BMI 25.0-25.9,adult, Non-smoker, Osteoporosis, Metastatic breast cancer, Benign essential hypertension (401.1) End: 31-Jan-2018 10:29 [facility] Lab Order On: 07-Dec-2017 15:30 Encounter Diagnosis: Hypothyroidism, unspecified End: 07-Dec-2017 15:36 [facility] Office Visit On: 06-Dec-2017 11:30 Encounter Reason: Follow up for chronic medical issues - The patient feels well with minor complaints, has good energy level and is sleeping poorly. Patient has been compliant with instructions. Current medication use: n End: 06-Dec-2017 12:32 o side effects and compliant with dosing regimen. Patient sleeps 6 hours per night. Nutrition: balanced diet and no supplemental vitamins & iron. The medical issues the patient is following up for i nclude All identified problems below, high blood pressure and high cholesterol.Encounter Diagnosis: Non-smoker, BMI 25.0-25.9,adult, Metastatic breast cancer, Hypothyroidism, unspecified, Benign essential hypertension (401.1), Hypercholesterolemia, Anxiety (300.00), Osteoporosis, Vitamin D deficiency, unspecified [facility] Nurse Visit (Non-[place]) On: 07-Aug-2017 13:31 Encounter Reason: BP nurse visit - The symptoms have been associated with other (change in medication).[facility] End: 07-Aug-2017 13:36 Office Visit On: 24-Jul-2017 13:57 Encounter Reason: Follow up ER - Reason for hospitalization note: (diarrhea and I passed out).Encounter Diagnosis: Non-smoker, BMI 24.0-24.9, adult, Vasovagal syncope, Diarrhea, Metastatic breast cancer, Dehydration, End: 24-Jul-2017 14:47 Benign essential hypertension (401.1) [facility] Prescription Refill On: 14-Apr-2017 12:07 Encounter Diagnosis: Abnormal TSH End: 14-Apr-2017 12:11 [facility] Phone Encounter On: 30-Mar-2017 13:56 Encounter Diagnosis: Rosacea (695.3) End: 30-Mar-2017 14:01 [facility] Office Visit On: 24-Mar-2017 14:57 Encounter Reason: Follow up ER - Reason for hospitalization note: (rt ankle). Patient has been compliant with instructions.Encounter Diagnosis: BMI 26.0-26.9,adult, Anxiety (300.00), Sprain of right ankle, initial encounter, Metastatic breast cancer End: 24-Mar-2017 15:54 , Vasovagal syncope, Achilles tendinitis, right leg [facility] Office Visit On: 04-Jan-2017 14:08 Encounter Reason: Follow up tests - Date: (12/14/16 labs)., [ADDITIONAL REASON] Follow up for chronic medical issues - The patient feels well with minor complai End: 04-Jan-2017 16:45 nts, has good energy level and is sleeping well. Patient has been compliant with instructions. Current medication use: no side effects and compliant with dosing regimen. Patient sleeps 6 hours per night . Nutrition: balanced diet and no supplemental vitamins & iron. The medical issues the patient is following up for include All identified problems below, high blood pressure and high cholesterol. Encounter Diagnosis: BMI 27.0-27.9,adult, Non-smoker, Benign essential hypertension (401.1), Hypothyroidism, unspecified, Hypercholesterolemia, Vitamin D deficiency, unspecified [facility] Lab Order On: 14-Dec-2016 11:25 Encounter Diagnosis: UTI symptoms End: 14-Dec-2016 11:32 [facility] Office Visit On: 17-Aug-2016 9:00 Encounter Reason: Follow up for chronic medical issues - The patient feels well with no complaints, has good energy level and is sleeping well. Patient has been compliant with instructions. Current medication use: no liane End: 17-Aug-2016 9:57 e effects. Patient sleeps 7 hours per night. The medical issues the patient is following up for include high blood pressure, hypothyroid and other (anxiety).Encounter Diagnosis: Benign essential hypertension (401.1), Hypothyroidism, unspecified, Vitamin D deficiency, unspecified, Hypercholesterolemia, BMI 27.0-27.9,adult, Non-smoker [facility] Office Visit On: 11-Aug-2015 12:49 Encounter Reason: Follow up for chronic medical issues - The patient feels well with no complaints. Patient has been compliant with instructions. Current medication use: no side effects. The medical issues the patient is End: 11-Aug-2015 14:07 following up for include high blood pressure, hypothyroid and other (anxiety).Encounter Diagnosis: Benign essential hypertension (401.1), Hypothyroidism, unspecified, Vitamin D deficiency, unspecified [facility] Office Visit On: 11-May-2015 10:29 Encounter Reason: Knee Pain - This condition occurred without any known injury. The injury involved the right knee. This occurred 4 week(s) ago while playing sports (walking). The activity involved walking. Symptoms incl End: 11-May-2015 11:33 ude knee pain, swelling, warmth and difficulty ambulating. Symptoms are located in the right lateral knee. The patient describes the pain as sharp and aching. Onset was gradual 4 week(s) ago. The patien t describes symptoms as unchanged. Symptoms are not relieved by rest, ice, support, immobilization, use of a brace, non-opioid analgesics or opioid analgesics. Current treatment includes nonsteroidal an ti-inflammatory drugs. By report there is good compliance with treatment. Pertinent medical history does not include osteoarthritis, rheumatoid arthritis, gout or malignancy. Previous presentation inclu ded knee pain, swelling, warmth and difficulty ambulating.Encounter Diagnosis: Knee pain, acute, right [facility] Office Visit On: 26-Nov-2014 9:37 Encounter Reason: Follow up tests - Date: (11/21/14 blood work11/13/14 bone density)., [ADDITIONAL REASON] Follow up for chronic medical issues - The patient feels well with no complaints End: 26-Nov-2014 10:55 . Patient has been compliant with instructions. Current medication use: no side effects. Encounter Diagnosis: Benign essential hypertension (401.1), Osteoporosis (733.00), Hypercholesterolemia (272.0), Vitamin D deficiency, unspecified (268.9), Dysthymic disorder (300.4), Osteoarthritis (715.96), Anxiety (300.00) [facility] Office Visit On: 22-Aug-2014 13:51 Encounter Reason: Follow up for chronic medical issues - The patient feels well with minor complaints, has good energy level and is sleeping well. Patient has been compliant with instructions. Current medication use: no End: 22-Aug-2014 14:38 side effects and compliant with dosing regimen. Patient sleeps 8 hours per night. Nutrition: balanced diet and no supplemental vitamins & iron. The medical issues the patient is following up for inc lude All identified problems below, depression and osteoporosis/osteopenia.Encounter Diagnosis: Benign essential hypertension (401.1), Osteoporosis (733.00), Vitamin D deficiency, unspecified (268.9), Hypercholesterolemia (272.0), Breast cancer screening, Anxiety (300.00) [facility] Office Visit On: 07-Feb-2014 9:41 Encounter Reason: Follow up for chronic medical issues - The patient feels well with minor complaints, has good energy level and is sleeping well. Patient has been compliant with instructions. Current medication use: no End: 07-Feb-2014 11:59 side effects and compliant with dosing regimen. Patient sleeps 8 hours per night. Nutrition: balanced diet and no supplemental vitamins & iron. The medical issues the patient is following up for inc lude All identified problems below, depression (anxiety), high cholesterol and osteoporosis/osteopenia. weight :.Encounter Diagnosis: Benign essential hypertension (401.1), UNSPECIFIED ACQUIRED HYPOTHYROIDISM (244.9), Hypercholesterolemia (272.0), Vitamin D deficiency, unspecified (268.9), Dysthymic disorder (300.4), Osteoporosis (733.00), EXTRINSIC ASTHMA UNSPECIFIED (493.00), LARYNGITIS (464.00), Hematuria (599.7), Atrial fibrillation (427.31), Anxiety (300.00) [facility] Lab Order On: 11-Sep-2013 14:30 Encounter Diagnosis: Abnormal TSH (794.5) End: 11-Sep-2013 14:37 [facility] Office Visit On: 13-Sep-2012 10:28 Encounter Reason: Follow up for chronic medical issues - The patient feels well with minor complaints, has good energy level and is sleeping well. Patient has been compliant with instructions. Current medication use: no End: 13-Sep-2012 11:19 side effects and compliant with dosing regimen. Patient sleeps 7 hours per night. Nutrition: balanced diet and no supplemental vitamins & iron. The medical issues the patient is following up for inc lude All identified problems below, high blood pressure, high cholesterol and hypothyroid. weight :.Encounter Diagnosis: Benign essential hypertension (401.1), Anxiety (300.00), Osteoporosis (733.00), Vitamin D deficiency, unspecified (268.9), Hypercholesterolemia (272.0), UNSPECIFIED ACQUIRED HYPOTHYROIDISM (244.9) [facility] Annotation/Addendum On: 04-Jul-2012 15:37 Encounter Diagnosis: Unspecified Diagnosis End: 04-Jul-2012 15:39 [facility] Office Visit On: 04-Jul-2012 8:37 Encounter Reason: Follow up acute care visit - The patient feels the same. Patient has been non-compliant (couldn't take mucinex) with instructions. Patient sleeps 6 (if in chair ) hours per night. The medical issues the End: 04-Jul-2012 9:48 patient is following up for include All identified problems below and other (cough, laryngitis).Encounter Diagnosis: Chronic cough (786.2), ACUTE SINUSITIS, UNSPECIFIED (461.9) [facility] Office Visit On: 29-Jun-2012 12:57 Encounter Reason: Cough - The onset of the cough has been sudden. The cough is characterized as productive of mucoid sputum. The amount of sputum produced is scanty. The cough occurs all the time. The symptoms are aggra End: 29-Jun-2012 13:20 vated by supine posture. The symptoms have been associated with hoarseness, while the symptoms have not been associated with fever, runny nose, sore throat or wheezing. the color of the sputum is clear (french).Encounter Diagnosis: LARYNGITIS (464.00) , Chronic cough (786.2) [facility] Phone Encounter On: 26-Sep-2011 16:51 Encounter Diagnosis: Vitamin D deficiency, unspecified (268.9) End: 26-Sep-2011 16:52 [facility] Office Visit On: 15-Sep-2011 9:16 Encounter Reason: Follow up for chronic medical issues - The patient feels well with minor complaints and has decreased energy level. Patient has been compliant with instructions. Current medication use: experiencing liane End: 15-Sep-2011 10:10 e effects (I htink I get tired from the meds). Patient sleeps 7 hours per night. The medical issues the patient is following up for include All identified problems below, high blood pressure, osteoarthritis and osteoporosis/osteopenia. Encounter Diagnosis: UNSPECIFIED ACQUIRED HYPOTHYROIDISM (244.9), Benign essential hypertension (401.1), Hypercholesterolemia (272.0), Vitamin D deficiency, unspecified (268.9), Osteoporosis (733.00), Anxiety (300.00), Atrial fibrillation (427.31) [facility] Office Visit On: 27-May-2011 8:52 Encounter Reason: Skin Problems - The onset of the problems has been sudden and they have been occurring in a persistent pattern for 1 month. The course has been increasing. The problem is characterized as dryness, crack End: 27-May-2011 9:12 ing and a change in skin color. Lesions are described as red. There has been associated mucous membrane lesions and pain.Encounter Diagnosis: COLD SORES (054.2) [facility] Office Visit On: 27-Sep-2010 8:38 Encounter Reason: Follow up, Laboratory Test Results - Date: (09-23-10).Encounter Diagnosis: Abnormal TSH (794.5), UNSPECIFIED ACQUIRED HYPOTHYROIDISM (244.9), Vitamin D deficiency, unspecified (268.9) End: 27-Sep-2010 9:31 [facility] Office Visit On: 23-Sep-2010 7:36 Encounter Reason: Follow up for chronic medical issues - The patient feels well with no complaints, has decreased energy level and is sleeping well. Patient has been compliant with instructions. Current medication use: n End: 23-Sep-2010 8:36 o side effects and compliant with dosing regimen. Patient sleeps 7 hours per night. Nutrition: balanced diet and supplemental vitamins. The medical issues the patient is following up for include All henry ntified problems below, high cholesterol, osteoarthritis and osteoporosis/osteopenia. weight :.Encounter Diagnosis: Osteopenia (733.90), UNSPECIFIED ACQUIRED HYPOTHYROIDISM (244.9), Hypercholesterolemia (272.0), Benign essential hypertension (401.1) , Osteoarthritis (715.96) [facility] Office Visit On: 01-Jun-2009 13:53 Encounter Reason: Follow up for chronic medical issues - The patient feels well with minor complaints ,has decreased energy level and is sleeping well. Patient has been compliant with instructions. Current medication use End: 01-Jun-2009 16:37 : no side effects and compliant with dosing regimen. Patient sleeps 7 hours per night. Nutrition: balanced diet and supplemental vitamins. The medical issues the patient is following up for include All identified problems below ,high cholesterol ,osteoarthritis and osteoporosis/osteopenia. weight :. Encounter Diagnosis: Benign essential hypertension (401.1), Hypercholesterolemia (272.0), UNSPECIFIED ACQUIRED HYPOTHYROIDISM (244.9), Dysthymic disorder (300.4), Osteoarthritis (715.96), Osteoporosis (733.00) [facility] Office Visit On: 28-Nov-2008 8:55 Encounter Reason: Follow up for chronic medical issues - The patient feels well with minor complaints ,has good energy level and is sleeping well. Patient has been compliant with instructions. Current medication use: no End: 28-Nov-2008 9:30 side effects ,compliant with dosing regimen and considered effective by patient. Patient sleeps 7 (broken ) hours per night. Impact of disease: no overall impact. Nutrition: balanced diet. The medical i ssues the patient is following up for include All identified problems below ,asthma ,cardiac issues (MVP) ,depression (dysthmic disorder, MIYA, PTSD ) ,high blood pressure ,high cholesterol ,osteoarthrit is ,osteoporosis/osteopenia and other (roseacea , ). Encounter Diagnosis: Hematuria (599.7), Lesion-Unknown behavior (238.2) [facility] Office Visit On: 20-May-2008 9:00 Encounter Reason: Cough - The onset of the cough has been acute. The cough is characterized as productive of mucoid sputum. The amount of sputum produced is scanty. The cough occurs all the time. The symptoms have been a End: 20-May-2008 9:32 ssociated with hoarseness. the color of the sputum is clear. Note for Cough: 10 days start with cough. no new meds. tickle in throst then cough. bring up white or clear. no fever feeling. some nasal c ongestion. no heartburn. worse at work when talking. think postnasal drip. if lay down on back worse. no wheezing. work out no problemEncounter Diagnosis: Chronic cough (786.2) [facility] Office Visit On: 05-May-2008 13:26 Encounter Reason: Follow up for chronic medical issues - The patient feels well with minor complaints ,has good energy level and is sleeping poorly. Patient has been compliant with instructions. Current medication use: n End: 05-May-2008 14:16 o side effects and compliant with dosing regimen. Patient sleeps 7 hours per night. Nutrition: balanced diet and supplemental vitamins. The medical issues the patient is following up for include All henry ntified problems below ,high blood pressure and high cholesterol. Encounter Diagnosis: UNSPECIFIED ACQUIRED HYPOTHYROIDISM (244.9), Hypercholesterolemia (272.0), Osteoporosis (733.00), Osteoarthritis (715.96) [facility] Office Visit On: 21-Feb-2007 11:31 Encounter Reason: Follow up for chronic medical issues - The patient feels well with no complaints ,has good energy level and is sleeping well. Patient has been compliant with instructions. Current medication use: no liane End: 21-Feb-2007 12:23 e effects and compliant with dosing regimen. Patient sleeps 7 hours per night. Nutrition: balanced diet and no supplemental vitamins & iron. The medical issues the patient is following up for includ e All identified problems below ,high blood pressure ,hypothyroid and osteoporosis/osteopenia. blood pressure range : (130's/ 70's). 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
--- OUTSIDE RECORDS SUMMARY | 2018-07-15 17:13 | XMS RPT_ITS | Continuity of Care Document ---
:1940 Author Organization [facility] Address [facility] 2 [place] [address] Phone Care Team Providers Name Role Phone [...] : 30-Mar-2017 End : 06-Dec-2017 Inactive DRISDOL, [id number] (Oral Capsule) 1 Capsule 2 X WEEK [...] Visit Report Result: Comments: See Note; NOTES: [facility] [address] [place], [place] [address]. [address] [place], [place] [address] OFFICE VISIT Date of Service: 11/07/17 MR#: [id number] Acct: [id number] Name: ANNA PRICE Rep #: [id number] : 1940 Provider: Stacey Pizano PA-C Age/Sex: 77/F Location: [facility] Status: Signed Intake Intake Visit Reasons: pain at mastectomy site 2017 Chief Comp laint: Encephalopathy Outbound Sales Executive Required: No Is patient in pain?: Yes [...] was treated with Gamma Knife treatment at [facility]. Patient had a follow-up MRI of the brain a [facility] which demonstrated dramatic decrease in the size [...] Laterality: left Musculoske letal disorder M79.9 11/08/17 4917 <Electronically signed by Stacey Pizano PA-C> Date Stacey Pizano PA-C Cosigner Signature: D ate (if applicable) CC: 31-Oct-2017 Surgery Visit Report Result: Comments: See Note; NOTES: [facility] [address] [place] [address] OFFICE VISIT Date of Service: 10/31/17 MR#: [id number] Acct: [id number] Name: ANNA PRICE Rep #: [id number] : 1940 Provider: Stacey Pizano PA-C Age/Sex: 77/F Location: [facility] Status: Signed Intake Intake Visit Reasons: pain [...] was treated with Gamma Knife treatment at [facility]. Patient had a follow-up MRI of the brain at [facility] which demonstrated dramatic decrease in the size [...] D/C Summary Result: Comments: See Note; NOTES: [facility] Occupational [facility] [address] [place] [address]. 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 right lat. pinch 8# righ t [...] please fell free to call me at [phone]. Thank you for the referral of this patient. Sincerely, STALIN Cunningham/Lu, KULWANTT <Electronically signed by Stephanie GANT/KULWANT LeighT> 10/25/17 1053 CC: Stacey bowie PA-C; Tayla Espinal DO MK Signed 16-Oct-2017 OT General Evaluation Result: Comments: See Note; NOTES: [facility] [address] [place] [address]. [address] [place] [address] Fax REHABILITATION SERVICES INI TIAL EVALUATION MR#: [id number] Acct: [id number] Name: ANNA BARRERA Rep #: [id number] : 1940 77 From: Stephanie REYNOSO CHT [...] Left WNL - Strength Shoulder: R/L 4/5 Flanger: right 45# left 45# Lateral Pinch: right [...] to be FAXED BACK to us at [phone] for Medicare purposes. Please let me know [...] Summary (1) Result: Comments: See Note; NOTES: [facility] Physical [facility] [address] [place] [address] Fax REHABILITATION SERVICES NISA BENJAMIN SUMMARY MR#: [id number] Acct: [id number] Name: ANNA BARRERA Rep #: [id number] : 1940 77 From: Amelie GAMEZT Referring Dr.: Stacey Pizano PA-C Status: REG RCR Insurance: [employer] MEDICARE A ONLY HP - PT D/C [...] please feel free to call me at [phone]. Thank you for the referral of this patient. Sincerely, Amelie Rodriguez <Electronically signed by Amelie Rodriguez DPT> 10/10/17 1028 CC: Stacey Pizano PA-C; Tayla Espinal DO ELR Signed 05-Oct-2017 OT General Evaluation Result: Comments: See Note; NOTES: [facility] [address] [place] [address]. [address] [place] [address] Fax REHABILITATION SERVICES INI TIAL EVALUATION MR#: [id number] Acct: [id number] Name: ANNA BARRERA Rep #: [id number] : 1940 77 From: Stephanie GANT/Lu, CHT [...] Left WNL - Strength Shoulder: R/L 4/5 Flanger: right 45# left 45# Lateral Pinch: right [...] to be FAXED BACK to us at [phone] for Medicare purposes. Please let me know if there are questions or concerns regarding this plan of care. Vladimir peralta Signature: Date: <Electronically signed by Stephanie GANT/MARY Leigh> 10/05/17 0934 CC: Stacey Pizano PA-C; Tayla Espinal DO MK Signed For Medicare only, by signing this I certify the plan of care. Physicians Signature Date 08-Sep-2017 Emergency Department Summary Result: Comments: See Note; NOTES: [facility] Medical Records Department [address] [place] [address] Emergency Department Summary 09/08/17 1630 MR#: [id number] Acct: [id number] Name: ANNA BARRERA Rep #: [id number] : 1940 77 From: Jose May MD PCP: Tayla Espinal DO Status: REG ER ADDENDUM by Srinivas Gabriel on 09/08/17 at 1756 Patient was endorsed to me by the [facility] physician with instructions to check on CT [...] 2. Delirium This note was generated with TrendMDation software. It may contain incorrect words, spelling, and punctuation that were not noted in review of the chart prior to signing ED Disposition - Plan for ED Patient: Chief Complaint: Nausea/Vomiting Referrals: Douglas Espinal DO [Primary Care Provider] - What to do if you have Problems For any increased pain, shortness of breath, bleeding, nausea or vomiting, chest pain, or any unexpected problems, contact your Prima Care Provider. Call Doctors Registry ([phone]) or report to the closest Emergency Room. Call 911 if necessary. 09/08/17 1712 <Electronically signed by Jose May MD> Date ___ Jose May MD Cosigner Signature (If Indicated): Date CC: Tayla Espinal DO 08-Sep-2017 Emergency Department Summary Result: Comments: See Note; NOTES: [facility] Medical Records Department [address] [place] [address] Emergency Department Summary 09/08/17 1630 MR#: [id number] Acct: [id number] Name: ANNA BARRERA Rep #: [id number] : 1940 77 From: Jose May MD [...] 2. Delirium This note was generated with Placely dictation software. It may contain incorrect words, [...] lems, contact your Primary Care Provider. Call [facility] ([phone]) or report to the closest Emergency Room. Call 911 if necessary. 09/08/17 0369 <Electronically signed by Jose iglesias MD> Date Jose May MD Cosigner Signature (If Indicated): Date CC: Tayla Kylie LINDER 08-Sep-2017 Brain/Head without Contrast Result: Comments: See Note; NOTES: [facility] Imaging Services [address] [place] [address] Brain/Head without Contrast MR#: [id number] Acct: [id number] Name: ANNA BARRERA Rep #: [id number] : 1940 F 77 From: Nasrin Orta MD PCP: Tayla Espinal DO Status: REG ER Study: Brain/Head without Contrast Date of Exam: 09/08/17 Exam# [id number] Ordering Dr: Jose May STUDY: CT BRAIN [...] Orta MD at 17:11 EDT Tel Direct: [phone], Service support , CC: Jose May MD; Tayla Espinal DO Supervisor Computer Operations: Signed 08-Sep-2017 Chest 1 View (Portable) Result: Comments: See Note; NOTES: [facility] Imaging Services [address] [place] [address] Chest 1 View (Portable) MR#: [id number] Acct: [id number] Name: ANNA BARRERA Rep #: [id number] : 1940 F 77 From: Nasrin Orta MD PCP: Tayla Espinal DO Status: REG ER Study: Chest 1 View (Portable) Date of Exam: 09/08/17 Exam# [id number] Ordering Dr: Jose May MD STUD Y: [...] Orta MD at 17:17 EDT Tel Direct: [phone], Service s upport , CC: Jose May MD; Tayla Espinal DO Supervisor Computer Operations: Signed 08-Sep-2017 Abdomen/Pelvis W IV Cont ONLY Result: Comments: See Note; NOTES: [facility] Imaging Services [address] [place] [address] Abdomen/Pelvis W IV Cont ONLY MR#: [id number] Acct: [id number] Name: ANNA BARRERA ep #: [id number] : 1940 F 77 From: Terence [place] MD PCP: Tayla Espinal DO Status: REG ER Study: Abdomen/Pelvis W IV Cont ONLY Date of Exam: 09/08/17 Exam# [id number] Ordering Dr: Jose May MD STUDY: CT [...] CC: Jose May MD; Tayla Espinal DO Supervisor Computer Operations: Signed 23-Aug-2017 Surgery Visit Report Result: Comments: See Note; NOTES: [facility] [place] [address] [place] [address] OFFICE VISIT Date of Service: 08/23/17 MR#: [id number] Acct: [id number] Name: ANNA BETANCOURT Rep #: [id number] : 1940 Provider: Stacey Garcia Age/Sex: 77/F Location: [facility] Status: Signed Intake Intake Visit Reasons: F/U MASTECTOMY/CEBUL Outbound Sales Executive Required: No Is patient in pain?: No [...] was treated with Gamma Knife treatment at [facility] [place] . She will have a follow up [...] W/WO Contrast Result: Comments: See Note; NOTES: [facility] Imaging Services [address] [place] [address] Brain W/WO Contrast MR#: [id number] Acct: [id number] Name: ANNA BARRERA Rep #: [id number] : 1940 F 77 From: Glenn Taylor DO PCP: Tayla Espinal DO Status: REG CLI Study: Brain W/WO Contrast Date of Exam: 07/31/17 Exam# [id number] Ordering Dr: Ky Burkett DO STUDY: MR [...] lateral ventricle and with a 3 mm nyqg-xx-lrtaj shift of the septum pellucidum (coronal T2 [...] surrounding vasogenic edema produ cing a mild pihq-od-faqyf midline shift and mild mass effect, most [...] CC: Tayla Espinal DO; Ky Burkett DO Supervisor Computer Operations: Signed 24-Jul-2017 Inital Evaluation (1) - PT Result: Comments: See Note; NOTES: [facility] Physical [facility] [address] [place] [address] Fax REHABILITATION SERVICES INITIAL EVALUATION MR#: [id number] Acct: [id number] Name: ANNA BARRERA Rep #: [id number] : 1940 77 From: Amelie Rodriguez DPT Referring Dr.: Stacey Pizano PA-C Status: REG RCR Insurance: [facility] MEDICARE A ONLY Patient's Visit Information ANNA [...] Paredes and Dr. Merritt. Sent her to [place]- which she lived in until Monday. Chemo 8x- CT scans- mets on the right lowe r lobe of the lung- Chest wall, fascia, muscle of the chest. Will have another scan at [facility] next monday. Does not have to have [...] to be FAXED BACK to us at [phone] for Medicare purposes. Please let me know [...] Discharge Instruction Result: Comments: See Note; NOTES: [facility] Medical Records Department [address] [place] [address] Discharge Instruction 07/15/17 1045 MR#: [id number] Acct: [id number] Name: ANNA PEREZ Rep #: [id number] : 1940 77 From: Tre Mcguire DO [...] your Primary Care Provider. Call Doctors Registry ([phone] ) or report to the closest Emergency Room. Call 911 if necessary. 07/15/17 1047 <Electronically signed by Tre Mcguire DO> Date Tre wahl DO Cosigner Signature (If Indicated): Date CC: Tayla Espinal DO 15-Jul-2017 Emergency Department Summary Result: Comments: See Note; NOTES: [facility] Medical Records Department [address] [place] [address] Emergency Department Summary 07/15/17 1042 MR#: [id number] Acct: [id number] Name: ANNA BARRERA Rep #: [id number] : 1940 77 From: Tre Mcguire DO PCP: Tayla Espinal DO Status: REG ER - ER Visit Summary Date of Service: 07/15/17 Chief Complaint: [Diarrhea] History of Present Illness: The patient is a 77 F [presents to the emergency department with symptoms of diarrhea that started this morning around 7 AM. Patient states she has had 3-4 watery stools. Patient is [email or web address] Patient denies any abdominal pain or blood [...] any fevers. She was [facility] the [facility] that her temperature was 99.2 and [...] Impression: [Diarrhea] This note was generated with Placely dictation software. It may contain incorrect wo [...] unexpected problems, contact your Primary Care Provider. [facility] Doctors Registry ([phone]) or report to the closest Emergency Room. Call 911 if necessary. 07/15/17 1045 <Electronically signed by Tre Mcguire DO> Date Tre Mcguire DO Cosigner Signature (If Indicated): Date CC: Tayla Espinal DO 13-Jul-2017 Surgery Visit Report Result: Comments: See Note; NOTES: [facility] [address] [place] [address] OFFICE VISIT Date of Service: 07/12/17 MR#: [id number] Acct: [id number] Name: ANNA BETANCOURT Rep #: [id number] : 1940 Provider: Stacey Garcia Age/Sex: 77/F Location: [facility] Status: Signed Intake Intake Visit Reasons: F/U MASTECTOMY/CEBUL Outbound Sales Executive Required: No Is patient in pain?: Yes [...] patient - May return to therapy at [facility] - Prescription for mastectomy bras was [...] Visit Report Result: Comments: See Note; NOTES: [facility] [address] [place] [address] [place] [address] OFFICE VISIT Date of Service: 06/27/17 MR#: [id number] Acct: [id number] Name: ANNA BETANCOURT Rep #: [id number] : 1940 Provider: Stacey Garcia Age/Sex: 77/F Location: [facility] Status: Signed Intake Intake Visit Reasons: F/U MASTECTOMY/CEBUL Chief Complaint: left mastectomy RC Outbound Sales Executive Required: No Is patient in pain?: No [...] mcg PO CHAVEZ 06/15/17 [History Confirmed 06/27/17] [facility] Breast cancer (Acute) Left breast [...] Lead Electrocardiogram Result: Comments: See Note; NOTES: [facility] Cardiovascular Services [address] [place] [address] 12 Lead EKG 06/17/17 1008 MR#: [id number] Acct: [id number] Name: ANNA BARRERA Rep #: [id number] : 1940 76 From: Delvin Coleman MD Attending Dr: Josh Merritt MD Status: PRE [facility] Ordering Dr: Josh Merritt MD Date: 06/17/17 Location: [facility] Sex: F C Admitted: Test Reason : P REOP Blood Pressure : / mmHG Vent. Rate : 075 BPM Atrial Rate : 075 BPM P-R Int : 168 ms QRS Dur : 096 ms QT Int : 386 ms P-R-T Axes : 041 -23 060 degrees QTc Int : 431 ms Normal sinus rhythm Bor derline ECG Confirmed by DELVIN COLEMAN MD ([id number]), book or script editor DANIELLE STAHL ([id number]) on 06/21/2017 3:06:43 PM Referred By: TOBY Confirmed By:DELVIN COLEMAN MD 06/21/17 1506 Date Delvin Coleman MD CC: Tayla Espinal DO Signed 01-Jun-2017 Surgery Visit Report Result: Comments: See Note; NOTES: [facility] [address] [facility] [address] [place] [address] OFFICE VISIT Date of Service: 05/30/17 MR#: [id number] Acct: [id number] Name: ANNA BETANCOURT Rep #: [id number] : 1940 Provider: Stacey Garcia Age/Sex: 76/F Location: [facility] Status: Signed Intake Vital Signs05/30/17 Height 5 ft 5 in 05/30/17 Weight: 145 lb Int grayson Visit Reasons: Update H AND P.el Outbound Sales Executive Required: No Is patient in pain?: No [...] 76-year-old female. She was referred by her [facility] Dr. Ky Burkett for surgical treatment of her left breast cancer. She was hospitalized at the [facility] January 10, 2017 bec[facility] [place] of [...] Department Summary Result: Comments: See Note; NOTES: [facility] Medical Records Department [address] [place] [address] Emergency Department Summary 03/15/172011 MR#: [id number] Acct: [id number] Name: ANNA BARRERA Rep #: [id number] : 1940 76 From: Munir Kennedy MD PCP: Tayla Espinal DO Status: DEP ER - ER Visit Summary Date of Service: 03/15/17 Chief Complaint: [] Right ankle pain and passed out. 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 Patient states that she stepped off [...] problems, contact your Primary Care Provider. [facility] ([phone]) or report to the closest Emergency Room. Call 911 if necessary. 03/30/17 7787 <Electronically signed by Munir Kennedy MD> Date Munir Reavesigner Signature (If Indicated): Date CC: Tayla Espinal DO 17-Mar-2017 12 Lead Electrocardiogram Result: Comments: See Note; NOTES: [facility] Cardiovascular Services [address] [place] [address] 12 Lead EKG 03/15/171406 MR#: [id number] Acct: [id number] Name: ANNA BARRERA Rep #: [id number] : 1940 76 From: Delvin Coleman MD [...] ECG Confirmed by DELVIN COLEMAN MD ([id number]), book or script editor DANIELLE STAHL (56) on 03/17/2017 2:36:13 PM Referred By: DOUGIE Confirmed By:DELVIN COLEMAN MD 03/17/17 1436 Date Delvin Coleman MD CC: Tayla Espinal DO Date Dictated: 03/15/171406 Date Transcribed: 03/15/171406 Supervisor Computer Operations: Signed 15-Mar-2017 Emergency Department Summary Result: Comments: See Note; NOTES: [facility] Medical Records Department [address] [place] [address] Emergency Department Summary 03/15/17 1528 MR#: [id number] Acct: [id number] Name: ANNA BARRERA Rep #: [id number] : 1940 76 From: Munir Kennedy MD [...] problems, contact your Primary Care Provider. Call [facility] ([phone]) or report to the closest Emergency Room. Call 911 if necessary. 03/15/17 1530 <Electronically signed by Munir Kennedy MD> Date Munir Kennedy MD Cosigner Signature (If Indicated): Date CC: Tayla Espinal DO 15-Mar-2017 Ankle min 3 Views Result: Comments: See Note; NOTES: [facility] Imaging Services [address] [place] [address] Ankle min 3 Views MR#: [id number] Acct: [id number] Name: ANNA BARRERA Rep #: [id number] : 1940 F 76 From: Asa Verma MD PCP: Tayla Espinal DO Status: REG ER Study: Ankle min 3 Views Date of Exam: 03/15/17 Exam# [id number] Ordering Dr: Munir Kennedy MD STUDY: X-RAY [...] Asa Verma MD at 14:22 EDT Tel [phone], Service support , CC: Munir Kennedy MD; Tayla Espinal DO Supervisor Computer Operations: Signed 06-Feb-2017 Emergency Department Summary Result: Comments: See Note; NOTES: [facility] Medical Records Department [address] [place] [address] Emergency Department Summary 02/06/17 1134 MR#: [id number] Acct: [id number] Name: ANNA BARRERA Rep #: [id number] : 1940 76 From: Srinivas Gabriel MD [...] by having bleeding on dressi ng changes. group home staff was concerned for the possibility of [...] dressing changes by the staff at her [facility] and requested referral to wound care. I [...] Additional Instructions: Fol low-up with wound care [phone] What to do if you have Problems For any increased pain, shortness of breath, bleeding, nausea or vomiting, chest pain, or any unexpected problems, contact your [facility] Care Provider. Call Doctors Registry ([phone]) or report to the closest Emergency Room. Call 911 if necessary. 02/06/17 3189 <Electronically signed by Srinivas Gabriel MD> Da te Srinivas Gabriel MD Cosigner Signature (If Indicated): Date CC: Tayla Espinal DO 10-Jan-2017 Chest WITH Contrast Result: Comments: See Note; NOTES: [facility] Imaging Services [address] [place] [address] Verdana 4d Chest WITH Contrast MR#: [id number] Acct: [id number] Name: ANNA BARRERA Rep #: [id number] : 1940 F 76 From: Asa Verma MD PCP: Kylie Tayla Status: REG ER Study: Chest WITH Contrast Date of Exam: 01/10/17 Exam# [id number] Ordering Dr: Nasrin Lizama STUDY: CT CHEST [...] Asa Verma MD at 10:40 EDT Tel [phone], Service support , CC: Nasrin Lizama MD; Tayla Espinla DO Supervisor Computer Operations: Signed 03-Jul-2015 PT D/C Summary Result: Comments: See Note; NOTES: [facility] Physical Therapy [facility] [address] [place] [address] Fax REHABILITATION SE RVICES DISCHARGE SUMMARY MR#: [id number] Acct: [id number] Name: ANNA BARRERA Rep #: [id number] : 1940 75 From: Amelie Rodriguez Referring [...] is planning on continuing with a personal development coach and dileep robledo. - Objective Objective/Function: Patient [...] feel free to call me a t [phone]. Thank you for the referral of this patient. Sincerely, Amelie Rodriguez <Electronically signed by Amelie Rodriguez > 07/03/15 1031 CC: Elizabeth Villanueva; Tayla Espinal DO ELR Signed 10-Jun-2015 Re-Evaluation - PT Result: Comments: See Note; NOTES: [facility] [place], [place] [address] Fax [facility]EEVALUATION / [facility] MR#: [id number] Acct: [id number] Name: ANNA BARRERA Rep #: [id number] : 1940 74 From: Amelie Rodriguez Referring Dr.: Elizabeth tnog: REG RCR Insurance: ANTHCALVIN Villanueva, It has [...] do not hesitate to contact me at [phone] by phone or if you have questions or concerns regarding this new plan of care! Sincerely, Amelie Rodriguez <Electronically signed by Amelie Rodriguez > 06/10/15 1058 CC: Elizabeth Espinal DO ELR Signed For Medicare only, by signing this I certify the plan of care. Physicians Signature Date 19-May-2015 Inital Evaluation - PT Result: Comments: See Note; NOTES: [facility] [address] [place] [address]. [address] [place] [address] Fax REHABILITATION [facility] INITIAL EVALUATION MR#: [id number] Acct: [id number] Name: ANNA BARRERA Rep #: [id number] : 1940 74 From: Amleie Rodriguez Referring DrAlondra: Elizabeth Villanueva Status: REG [...] in the AM and meets with a instructor apparel manufacture 1x a week. - Objective Posture: FH, [...] to be FAXED BACK to us at [phone] for Medicare purposes. Please let me know if there are questions or conc erns regarding this plan of care. Physician Signature: Date: <Electronically signed by Amelie Rodriguez > 05/19/15 1445 CC: Elizabeth Espinal DO ELR Signed For Medicare only, by signing this I certify the plan of care. Physicians Signature Date 11-May-2015 Knee 4 or More Views Result: Comments: See Note; NOTES: [facility] Imaging Services [address] [place] [address] Verdavangie 4d Knee 4 or More Views MR#: [id number] Acct: [id number] Name: ANNA PRICE Rep #: [id number] : 1940 F 74 From: Afshin Gant DO PCP: Tayla Espinal DO Status: REG CLI Study: Knee 4 or More Views Date of Exam: 05/11/15 Exam# [id number] Ordering Dr: Elizabeth Richards STUDY: X-RAY - [...] Afshin Gant DO at 9:20 EST Tel [phone], Service support [phone], RAD/Knee 4 or More Views IMPRESSION: Degenerative arthrosis. Electro nically Signed: Afshin Gant DO at 9:20 EST Tel [phone], Service support [phone], CC: Elizabeth Villanueva; Tayla Espinal DO Supervisor Computer Operations: Signed 30-Oct-2014 Bilat Scrn Digital AND CAD Result: Comments: See Note; NOTES: [facility] Imaging Services [address] [place] [address] Breast Imaging Report MR#: [id number] Acct: [id number] Name: YADIGABINOTIFFANYANNAWill Mott p #: [id number] : 1940 F 74 From: Afshin Gant DO PCP: Tayla Espinal DO Status: REG CLI Study: Bilat Scrn Digital AND CAD Date of Exam: 10/30/14 Exam# [id number] Ordering Dr: Douglas Espinal DO MAMMOGRAPHY - [...] Afshin Gant DO at 14:34 EDT Tel [phone], Service support [phone], CC: Tayla Espinal DO Supervisor Computer Operations: Signed 30-Oct-2014 Dexa Bone Density Study (HP) Result: Comments: See Note; NOTES: [facility] Imaging Services [address] [place] [address] Bone Density Report MR#: [id number] Acct: [id number] Name: ANNA BARRERA Rep #: [id number] : 1940 F 74 From: Asa Verma MD PCP: Tayla Espinal DO Status: [facility] CLI Study: Dexa Bone Density Study (HP) Date of Exam: 10/30/14 Exam# [id number] Ordering Dr: Tayla Espinal DO STUDY: DUAL [...] Asa Verma MD at 8:23 EDT Tel [phone], Service support [phone], CC: Tayla Espinal DO Supervisor Computer Operations: Signed 12-Nov-2013 OT Discharge Summary Result: Comments: See Note; NOTES: [facility] Occupational Therapy [facility] [address] [place] [address]. [address] [place] [address] Fax REHABILITATION SERVIC ES DISCHARGE SUMMARY MR#: [id number] Acct: [id number] Name: ANNA BARRERA Rep #: [id number] : 1940 73 From: Stephanie Schilling Referring [...] discharged. Stephanie Schilling OTR/L T: NTS JOB: [id number] <Electronically signed by Stephanie Schilling > 11/12/13 [...] smoker Vital Signs Date Test Result Details 84-Gqi-06555:11 Temperature 97.8 f Comments: Method: Temporal Pulse [...] 0.00 cm Results Date Description Value Details 40-Tji-211063:31 T3, FREE (TRIDOTHYRONINE) (13069) Comments: PATIENT NOT FASTINGPERFORMED BY: [facility]abilityH[facility] HospitalCgbfvr1340 [facility] [id number] Triiodothyronine (T3), Free 3.1 pg/mL (Normal) Range: 2.0-4.4 65-Pfd-675610:31 T4, FREE (THYROXINE) (13911) Comments: PATIENT NOT FASTINGPERFORMED BY: [facility]abilityH[facility] HospitalUwhbjg0581 [facility] [id number] T4,Free(Direct) 2.14 ng/dL (Abnormal) Range: 0.82-1.77 80-Yzh-741298:31 TSH (THYROID STIMULATING Comments: PATIENT NOT FASTINGPERFORMED BY: [place]abilityLar[place] 2693470 [facility] [id number] HORMONE) (50186) TSH 0.058 {uIU/mL} (Abnormal) Range: 0.450-4.500 56-Iph-224545:52 CALCIFEDIOL (10984) Comments: PATIENT NOT FASTINGPERFORMED BY: [facility]greeK[facility] Center6370 [facility] [id number] Vitamin D, 25-Hydroxy 20.8 ng/mL (Abnormal) Range: 30.0-100.0 Comments: Vitamin D deficiency has been defined by the [facility] and an Endocrine Society practice guideline as alevel of serum 25-OH vitamin D less than 20 ng/mL (1,2).The Endocrine Society went on to further define vitamin Dinsufficiency as a level between 21 and 29 ng/mL (2).1. IOM ([facility]). 2010. Dietary reference intakes for calcium and D. [place]: The National Academies Press.2. Ham MF, Alvino ALCALA, Ileana AYALA, et al. Evaluation, treatment, and prevention of vitamin D deficiency: an Endocrine Society clinical practice guideline. JCEM. 2010; 96(7):1911-30. 78-Isf-543109:52 MICROALBUMIN: CREATININE RATIO Comments: PATIENT NOT FASTINGPERFORMED BY: [facility] Qwxvak9454 [facility] [id number] (75723) AND (29844) Alb/Creat Ratio <22.6 {mg/g_creat} (Normal) Range: 0.0-30.0 Albumin, Urine <3.0 ug/mL (Normal) Creatinine, Urine 13.3 mg/dL (Normal) :52 METABOLIC PANEL, COMPREHENSIVE Comments: PATIENT NOT FASTINGPERFORMED BY: [facility] Etgbly3849 [facility] [id number] (54527) ALT (SGPT) 12 [iU]/L (Normal) Range: 0-32 [...] 8-27 Glucose 86 mg/dL (Normal) Range: 65-99 30-Fgv-966876:52 CBC W/AUTO DIFF WBC (02276) Comments: PATIENT NOT FASTINGPERFORMED BY: [facility] Njvimt1476 [facility] [id number] Immature Grans (Abs) 0.0 {x10E3/uL} (Normal) Range: [...] 4.9 {x10E3/uL} (Normal) Range: 3.4-10.8 :52 TSH (75931) Comments: PATIENT NOT FASTINGPERFORMED BY: [facility]6370 [facility] [id number] TSH 0.032 {uIU/mL} (Abnormal) Range: 0.450-4.500 :52 T4, FREE (THYROXINE) (34072) Comments: PATIENT NOT FASTINGPERFORMED BY: [address] [id number] T4,Free(Direct) 2.26 ng/dL (Abnormal) Range: 0.82-1.77 :52 T3, FREE (TRIDOTHYRONINE) (55036) Comments: PATIENT NOT FASTINGPERFORMED BY: [facility]6370 [facility] [id number] Triiodothyronine,Free,Serum 3.6 pg/mL (Normal) Range: 2.0-4.4 49-Sso-032685:50 Urinalysis, Complete Comments: Order Date: 09/08/17How was Urine Obtained? ARTILLERY OFFICER TO [facility] [address] [place], [address] MUCUS, URINE 0 SEEN {/hpf} [...] (Normal) CLARITY Clear (Normal) COLOR Straw (Normal) 62-Fxr-256415:20 CBC W/Diff, Automated Comments: [facility] [address] [place], [place], [address] PATH REV October (Normal) Absolute Lymph 0.49 [...] 4.2-5.4 WBC 2.9 K/mm3 (Abnormal) Range: 4.4-11.0 43-Pna-779575:20 Comprehensive Metabolic Profil Comments: 'TROP' Serial specimen #1, #2, #3, or #4: 1[facility] [address] [place], [place], [address] GAP 5 (Normal) Range: 5-15 CO2 31.0 mmol/L (Normal) Range: 21.0-32.0 CL 102 mmol/L (Normal) Range: 98-107 K 3.6 mmol/L (Normal) Range: 3.5-5.1 NA 138 mmol/L (Normal) Range: 136-145 T BILI 0.40 mg/dL (Normal) Range: 0.20-1.00 ALT 88 U/L (Abnormal) Range: 13-56 Comments: Please note revised ALT reference range /28/2018. ALK P 95 U/L (Normal) Range: 45-117 [...] A.D.A. criteria.Please note revised GLUCOSE reference range gbryoczyk27/02/2018. 20-Jst-722944:20 Lipase Comments: 'TROP' Serial specimen #1, #2, #3, or #4: [address] [place] [address] [address] [place], [phone] LIPASE 389 U/L (Normal) Range: 73-393 74-Hpw-023502:20 Troponin-I Comments: 'TROP' Serial specimen #1, #2, #3, or #4: [address] [place] [address] [place], [address] TROPONIN-I < 0.02 ng/mL (Normal) Comments: TROPONIN-I EXPECTED VALUES <0.05 NEGATIVE 0.06 - 0.59 AT RISK OF NC > OR = 0.60 SUGGEST NC 15-Jaw-80031:50 Basic Metabolic Profile (BMP) Comments: [facility] [address]im[address] [place], [id number] GAP 9 (Normal) Range: 5-15 CO2 24.0 [...] 7-18 GLU 100 mg/dL (Normal) Range: 70-110 78-Frv-24042:50 CBC W/Diff, Automated Comments: [facility] [address] [place], [place], [phone] SMEAR COMMENT SCANNED (Normal) Absolute Lymph 0.40 [...] -Jun-2017 BREAST MASTECTOMY (CHOOSE See Note Comments: [facility] [address] [place], [place], [address] 7:15 SIDE (Normal) Comments: Patient: ANNA BARRERA : 1940 (77/F) Acct Num: [id number] Phys: Shaina ESTEBAN,Josh Unit Num: [id number] Loc: [facility] Specimen: [id number] Received: 06/22/17936 Spec Type: B [...] node measures 3.5 cm in greatest dimension. Supervisor Press Room sections are subm itted as follows: 1 [...] superior, inferior and posteri or margin, 15-17 statement services representative sections from the other areas, 18 multiple lymph nodes, 19-21 each cassette containing one bisected lymph node, 22 two lymph nodes, 23 AND 24 one lymph node, 2 5 AND 26 one lymph node. / SJ:rg 06/23/17 TC:0 CPT: 91325 HEADER OPERATION: Left modified radical mastectomy PRE-OP [...] previously performed on section of tumo r ([id number] / GQ56-987). 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 PATHOLOGIC STAGE: p T1a(y) pN0 Mx The above summary is in compliance with College of [place] Pathology (CAP) Cancer Protocols Checklist and [place] Joint Committee on Cancer (AJCC), Staging Manual, 7th Ed. SJ:blanco 06/26/17 Signed Young Malcolm 06/26/17 <signature on file> 22-Jun-2017 IMMUNOHISTOCHEMISTRY See Note Comments: [facility] [address] [place], [place], [address] 0:00 (Normal) Comments: Patient: ANNA BARRERA : 1940 (77/F) Acct Num: [id number] Phys: Shaina ESTEBAN,Josh Unit Num: [id number] Loc: [facility] Specimen: [id number] Received: 06/26/17 - 1201 Spec Type: IMMUNO TISSUES TISSUES: Left breast, NOS SPECIMEN INFORMATION: Tissue Source: Left breast and axillary contents Clinical Info: Left breast cancer Specimen Number: [id number] #6 AND 24 CPT code: 16721, 14807 x3 METHODOLOGY: Deparaffinized sections of prefer/formalin-fixed tissue [...] developed and their performance characteristics determined by [facility]. They may not have been cleared [...] the above diagnosis. IDC:AM PHYSICIAN AND INSTITUTION [address] [address] Signed Young Malcolm 06/27/17 <signature on file> 15-Jez-84028:57 Basic Metabolic Profile (BMP) Comments: [facility] [address] [place] [address], [id number] GAP 6 (Normal) Range: 5-15 CO2 31.0 [...] :57 CBC-Complete Blood Cnt No Diff Comments: [facility] [address] [place], [place], [phone] MPV 9.5 fL (Normal) Range: 6.2-12.0 PLT [...] 4.4-11.0 :57 Thyroid Stim Hormone (TSH) Comments: [facility] [address] [place], [address] TSH 0.26 {uIU/mL} (Abnormal) Range: 0.358-3.74 97-Hgv-657101:08 Basic Metabolic Profile (BMP) Comments: [facility] [address] [place], [place], [address] GAP 7 (Normal) Range: 5-15 CO2 27.0 [...] 7-18 GLU 108 mg/dL (Normal) Range: 70-110 44-Tfk-580422:30 Culture, Sputum Comments: [facility] Qbwkrbufan6687 [facility] [place], [place], [address] CUSP See Note (Normal) Comments: Gram StainAcceptable Specimen? Yes (<25 Epithelial cells per/lpf) Gram Stain 1+ White Blood Cells No Epithelial cells 2+ Gram positive cocci in clusters Resp. CultureMixed normal respirat ory anita. No Haemophilus, Streptococcus pneumoniae, beta-hemolytic Streptococcus or Staphylococcus aureus isolated. ORGANISM 1: YeastAmount Growth Rare 42-Kpb-305972:00 Culture, Sputum Comments: [facility] [address] [facility] [address] [place], [place], [address] CUSP See Note Comments: Gram StainAcceptable Specimen? [...] <=20 S(NF) indicates non-formulary veena g at [facility]. Approval by Infectious Disease Specialist required before non-formulary drugs may be ordered and/or dispensed. BREAST BIOPSY (CHOOSE SITE) See Note Comments: [facility] [address] [place], [address] 716:06 (Normal) Comments: Patient: ANNA BARRERA : 1940 (76/F) Acct Num: [id number] Phys: Andrew ESTEBAN,Ceferino Unit Num: [id number] Loc: [facility] Specimen: [id number] Received: 01/18/17 - 1024 Spe c Type: BREAST BX TISSUES TISSUES: COMMENT Immunohistochemistry ([id number]) supports the above diagnosis. 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 Case is reviewed in consultation with Dr. Ibarra of [facility]. The complete consultative report is viewable in [...] intwo cassettes. / AM:blanco 01/18/17 TC:0 CPT: 61007 HEADER OPERATION: Left breast core biopsy PRE-OP DIAGNOSIS: Breast cancer TISSUE SUBMITTED: Left breast core biopsy ISCHEMIC TIME: 18 minutes FIXATION TIME: 17 hours MICROSCOPIC DESCRIPTION Sli diana are reviewed. MICROSCOPIC DIAGNOSIS Left breast, core biopsy: Poorly differentiated ductal carcinoma. AM:blanco 01/19/17 Signed Deo Garza 01/30/17 <signature on file> IMMUNOHISTOCHEMISTRY See Note Comments: [facility] [address] [place], [address] 70:00 (Normal) Comments: Patient: ANNA BARRERA : 1940 (76/F) Acct Num: [id number] Phys: Ceferino Morales MD Unit Num: [id number] Loc: [facility] Specimen: [id number] Received: 01/19/171030 Spe c Type: IMMUNO TISSUES TISSUES: SPECIMEN INFORMATION: Tissue Source: Left breast core biopsy Clinical Info: Breast cancer Specimen Number: [id number] #1 CPT code: 73369, 53312 x22, 50810 x3 METHODOLOGY: Deparaffinized sections of prefer/formalin- fixed [...] ER (clone 6F11) 38%, weak to moderate KS (clone 16/1E2) 0% Her-2Neu (clone CB11) 0 The prognostic test for HER2 is performed on formalin-fixed paraffin embedded tissue. A 3+ (positive) staining pattern is defined as intense, homogeneous, complete, circumferential membran ous staining in >10% of contiguous tumor cells. A similar weak (2+) staining pattern is interpreted as equivocal. JENNA follow-up testing is recommended for all equivocal cases. Positivity/negativity for ER/KS is reported if > or < 1% of the tumor cells are immuno- reactive, respectively. The ASCO/CAP criteria is used for scoring. Reference: Journal of Clinical Oncology, 2013; 31:9926-7078 AN D 2010; 16:3616-5529. Duration of fixation: 17 Hrs; Sample Adequate: Yes. These assays have not been validated on decalcified tissues. Results should beinterpreted with caution given the likelihoo d of false negativity on decalcifiedspecimens. These tests were developed and their performance characteristics determined by [facility]. They may not have been cleared [...] reviewed in consultation with Dr. Ibarra of [facility]. Complete consultative report is viewable in patient's EMR Case has been reviewed in consultation with Dr. Malcolm who concurs with the abovediagnosis. IDC: PHYSICIAN AND INSTITUTION [address] [address] Signed Doe [facility] 01/30/17 <signature on file> 78-Xqt-86769:04 Basic Metabolic Profile (BMP) Comments: [facility] [address] [place], [address] GAP 6 (Normal) Range: 5-15 CO2 30.0 [...] <126 mg/dLsuggests IMPAIRED HOMEOSTASIS per A.D.A. criteria. 89-Qvs-49131:04 CBC W/Diff, Automated Comments: [facility] [address] [place], [address] Absolute Lymph 1.46 {X10_3/ul} (Normal) Range: 0.83-4.51 [...] Range: 4.4-11.0 :04 Partial Thromboplast Time Comments: [facility] [address] [place], [place], [address] PTT 26.4 s (Normal) Range: 24.1-36.2 :04 Prothrombin Time w/INR Comments: [facility] [address] [place], [place], [address] INR 1.0 (Normal) PROTIME 12.7 s (Normal) Range: 11.7-14.9 :05 CBC W/Diff, Automated Comments: [facility] [address] [place], [place], [address] Absolute Lymph 2.04 {X10_3/ul} (Normal) Range: 0.83-4.51 [...] Range: 4.4-11.0 :05 Comprehensive Metabolic Profil Comments: [facility] [address] [place], [address] GAP 7 (Normal) Range: 5-15 CO2 30.0 [...] (Normal) Range: 70-110 :05 Lipid Profile Comments: [facility] [address] [place], [place], [address] VLDL 10 mg/dL (Normal) Range: 5-40 LDL [...] High Risk :05 Microalb:Creat Ratio,Random UR Comments: [facility] [address] [place], [place], [address] MALB:CREAT 8.6 {mg/g_CRE} (Normal) MICROALBUMIN,UR 5.8 mg/L (Normal) UR CREAT 67.00 mg/dL (Normal) :05 Thyroid Stim Hormone (TSH) Comments: [facility] [address] [place], [place], [address] TSH 0.65 {uIU/mL} (Normal) Range: 0.358-3.74 :05 Urinalysis, Routine (Dipstick) Comments: How was Urine Obtained? [facility] [address] [place], [address] LEUK ESTERASE 100 /ul (Abnormal) OCCULT BLOOD-UR 25 /ul (Abnormal) NITRITE UR Negative (Normal) UROBILI Normal mg/dL (Normal) PROT DIPSTX Negative mg/dL (Normal) pH UR 6.5 (Normal) Range: 5.0 - 8.0 SP.GR. DIPSTX 1.010 (Normal) Range: 1.002-1.030 KETONE UR Negative mg/dL (Normal) BILIRUBIN URINE Negative mg/dL (Normal) GLUCOSE, UR Normal mg/dL (Normal) CLARITY Clear (Normal) COLOR Yellow (Normal) 07-Rfn-874767:08 TSH (82185) Comments: PATIENT NOT FASTINGPERFORMED BY: [facility] Zhcznd8420 [facility] [id number] Information: [id number] TSH 1.080 {uIU/mL} (Normal) Range: 0.450-4.500 21-Nov-20146:06 CBC W/Diff, Automated Comments: Test performed at:[facility] [address] [place], [place] [address] Absolute Lymph 2.22 {X10_3/ul} (Normal) Range: 0.83-4.51 [...] :06 Comprehensive Metabolic Profil Comments: Test performed at:[facility] [address] [place], [place] [address] GAP 4 (Abnormal) Range: 5-15 CO2 31.0 [...] 70-110 :06 Lipid Profile Comments: Test performed at:[facility] [address]ct[address] [facility] [address] [place], [place] [address] VLDL 11 mg/dL (Normal) Range: 5-40 LDL [...] :06 Microalb:Creat Ratio,Random UR Comments: Test performed at:[facility] [address] [place] [address] MALB:CREAT 21.7 {mg/g_CRE} (Normal) MICROALBUMIN,UR 7.8 mg/L (Normal) UR CREAT 35.8 mg/dL (Normal) :06 Thyroid Stim Hormone (TSH) Comments: Test performed at:[facility] [address] [address] TSH 0.46 {uIU/mL} (Normal) Range: 0.358-3.74 :06 Urinalysis, Routine (Dipstick) Comments: How was Urine Obtained? CLEAN CATCHTest performed at:[facility] [address] [place] [address] ; will review at 11/26 [...] :06 Vitamin D,25 Hydroxy Comments: Test performed at:[facility] [address] [place], [place] [address] Vitamin D 25-OH 23.4 ng/mL (Normal) Comments: Vitamin D 25(OH) Status Range Deficiency <20 ng/mL (50nmol/L) Insuffciency 20 - 30 ng/mL (50 - 75 nmol/L) Sufficiency 30 - 100 ng/mL (75 - 250 nmol/L) Toxicity >100 ng/mL (>250 nmol/L) 17-Sep-20139:09 TSH (62141) Comments: PATIENT NOT FASTINGPERFORMED BY: [place] [address]3370 [facility] [id number] Information: [id number], [id number] TSH 1.860 {uIU/mL} (Normal) Range: 0.450-4.500 58-Tup-291297:27 TSH (25229) Comments: PATIENT NOT FASTINGPERFORMED BY: [facility]6370 [facility] [id number] Information: [id number] TSH 1.760 {uIU/mL} (Normal) Range: 0.450-4.500 :05 [...] D deficiency has been defined by the [facility] and an Endocrine Society practice guideline as alevel of serum 25-OH vitamin D less than 20 ng/mL (1,2).The Endocrine Society went on to further define vitamin Dinsufficiency as a level between 21 and 29 ng/mL (2).1. IOM ([facility]). 2010. Dietary reference intakes for calcium and D. [place]: The National Academies Press.2. Ham MF, Alvino NC, Ileana AYALA, et al. Evaluation, treatment, and prevention of vitamin D deficiency: an Endocrine Society clinical practice guideline. JCEM. 2010; 96(7): 1911-30.Performed at: - [facility] [id number] Director: Stephanie Young MD, Phone: [phone] 25-Feb-20119:43 TSH (66412) Comments: PATIENT NOT FASTINGPERFORMED BY: [facility] [id number] Information: [id number] TSH 2.940 {uIU/mL} (Normal) Range: 0.450-4.500 :43 CALCIFIDIOL (70489) VIT D 25 Comments: PATIENT NOT FASTINGPERFORMED BY: JOSE DAVID [facility] Mhvoqu4613 [address] RoadDublin [place] [id number] Vitamin D, 25-Hydroxy 24.5 ng/mL (Abnormal) Range: 32.0-100.0 Comments: Recent studies consider the lower limit of 32.0 ng/mL to be athreshold for optimal health.Juarez BW. J Nutr. 2004;135(2):317-22. 02-Gni-253313:08 PARATHORMONE (16764) Comments: PATIENT NOT FASTINGPERFORMED BY: CB [facility] Fpgwvb5863 [address] Road[address]ublin [place] [id number] Information: [id number] PTH, Intact 47 pg/mL (Normal) Range: 15-65 :06 Microscopic Examination Comments: PATIENT NOT FASTINGPERFORMED BY: CB [facility] Xyowhx7871 [address] RoadDublin [place] [id number] Bacteria Few (Normal) Mucus Threads Present (Normal) Epithelial Cells (non renal) None seen {/hpf} (Normal) Range: 0 - 10 RBC None seen {/hpf} (Normal) Range: 0 - 3 WBC 0-5 {/hpf} (Normal) Range: 0 - 5 :06 Vitamin D Hydroxy (61942) Comments: PATIENT NOT FASTINGPERFORMED BY: CB [facility] Floquk0649 [address]Dublin [place] [id number] Vitamin D, 25-Hydroxy 27.0 ng/mL (Abnormal) Range: 32.0-100.0 Comments: Recent studies consider the lower limit of 32.0 ng/mL to be athreshold for optimal health.Juarez BW. J Nutr. 2004;135(2):317-22. :06 TSH (93338) Comments: PATIENT NOT FASTINGPERFORMED BY: CB [facility] Ypgjvz3554 [address]a RoadDublin [place] [id number] TSH 4.620 {uIU/mL} (Abnormal) Range: 0.450-4.500 :06 URINALYSIS, W/ MICRO (27364) Comments: PATIENT NOT FASTINGPERFORMED BY: [facility]abilityH[facility] HospitalZzakyl8948 [facility] [id number] Microscopic Examination MICRON (Normal) Comments: Microscopic follows if indicated. Microscopic Examination See below: (Normal) Nitrite, Urine Negative (Normal) Bilirubin Negative (Normal) Ketones Negative (Normal) Occult Blood Negative (Normal) Urobilinogen,Semi-Qn 0.2 mg/dL (Normal) Range: 0.0-1.9 Glucose Negative (Normal) Protein Negative (Normal) Appearance Clear (Normal) Urine-Color Yellow (Normal) WBC Esterase Negative (Normal) pH 6.5 (Normal) Range: 5.0-7.5 Specific Draper 1.007 (Normal) Range: 1.005-1.030 :06 MICROALBUMIN: CREATININE RATIO Comments: PATIENT NOT FASTINGPERFORMED BY: [facility]6370 [facility] [id number] (14653) AND (88412) Microalb/Creat Ratio 13.5 {mg/g_creat} (Normal) Range: 0.0-30.0 Creatinine, Urine 19.3 mg/dL (Normal) Range: 15.0-278.0 Microalbumin, Urine 2.6 ug/mL (Normal) Range: 0.0-17.0 :06 METABOLIC PANEL, COMPREHENSIVE Comments: PATIENT NOT FASTINGPERFORMED BY: [facility]6370 [facility] [id number] (90564) Alkaline Phosphatase, S 81 [iU]/L (Normal) Range: [...] MANUAL DIFF Comments: PATIENT NOT FASTINGPERFORMED BY: [facility]CoH[facility] HospitalWrxzis0785 [facility] [id number] Information: [id number] (31765) Immature Grans (Abs) 0.0 {x10E3/uL} (Normal) Range: [...] CHOL 191 mg/dL (Normal) Comments: <200 mg/dL Jnvnblzgn434-268 mg/dL Borderline>240 mg/dL High Risk HDL 57 [...] {uIU/mL} (Normal) Range: 0.358-3.74 :05 VIT D,25 36346 29.2 ng/mL (Abnormal) Range: 32.0-100.0 Comments: Recent studies consider the lower limit of 32.0 ng/mL to daren threshold for optimal health.Larry BARRERA. J Nutr. 2004;135(2):317-22.Performed at: [employer] [facility] [id number] Director: Caprice Woods MD 09-Kds-09235:58 URINE VENICE CULTURE-DESMOND COL Comments: PATIENT NOT FASTINGClinical Information: SRC:UR ADD [id number] PERFORMED BY: [employer] [id number] COUNT (40221) Result 1 BETAGB (Normal) Comments: Beta hemolytic [...] Final report (Normal) Culture,Comprehensive :59 Urinalysis, Office (49637) UA - BILIRUBIN Negative (Normal) UA - [...] TIMED TSH 3.448 {uIU/mL} Comments: PERFORMED BY: [facility]6370 [facility] [id number] 5:11 (Normal) Range: 0.450-4.500 TSH 4.26 {uIU/mL} [...] breast cancer Metastatic breast cancer : Reviewed Sandwich Hand Letter Indication: Metastatic breast cancer Benign essential hypertension : Continue Current Prescription(s) Indication: Benign essential hypertension Hypercholesterolemia : Cholesterol mgmt Indication: Hypercholesterolemia Benign essential hypertension : HTN/CAD Red Flags Indication: Benign essential hypertension Metastatic breast cancer : Reviewed Lab Indication: Metastatic breast cancer Metastatic breast cancer : Reviewed Diagnostic Tests Indication: Metastatic breast cancer Metastatic breast cancer : Reviewed Sandwich Hand Letter Indication: Metastatic breast cancer Non-smoker : [...] of right ankle, initial encounter : Reviewed Sandwich Hand Letter Indication: Sprain of right ankle, initial encounter Metastatic breast cancer : Reviewed Sandwich Hand Letter Indication: Metastatic breast cancer Benign essential [...] Osteoporosis Planned Observations TSH (THYROID STIMULATING HORMONE) (26819)Indication: Hypothyroidism, unspecified On: 61-Udn-998092:56 Request TSH (THYROID STIMULATING HORMONE) (93493)Indication: Hypothyroidism, unspecified On: 53-Zwh-018142:36 Request T4, FREE (THYROXINE) (66656)Indication: Hypothyroidism, unspecified On: 76-Zem-571304:33 Request T3, FREE (TRIDOTHYRONINE) (57754)Indication: Hypothyroidism, unspecified On: 24-Jcf-226614:33 Request CALCIFIDIOL (21866) VIT D 25Indication: Vitamin D deficiency, unspecified On: :47 Request TSH (50442)Indication: Hypothyroidism, unspecified On: :46 Request URINALYSIS, W/ MICRO (44082)Indication: Benign essential hypertension On: :46 Request MICROALBUMIN: CREATININE RATIO (89296) AND (85295)Indication: Benign essential hypertension On: :46 Request METABOLIC PANEL, COMPREHENSIVE (80451)Indication: Benign essential hypertension On: :46 Request LIPID PANEL (71548)Indication: Hypercholesterolemia On: :46 Request CBC W/AUTO DIFF WBC (34138)Indication: Benign essential hypertension On: :46 Request URINE VENICE CULTURE-DESMOND COL COUNT (96561)Indication: UTI symptoms On: 44-Tid-365258:31 Request LIPID PANEL (76511)Indication: Hypercholesterolemia On: :55 Request Comments: November 2016 MICROALBUMIN: CREATININE RATIO (35138) AND (75048)Indication: Benign essential hypertension On: :54 Request Comments: November 2016 URINALYSIS ([id number])Indication: Benign essential hypertension On: :54 Request Comments: November 2016 CBC, Platelets & Auto Diff ([id number])Indication: Benign essential hypertension On: :54 Request Comments: November 2016 Metabolic Panel, Comprehensive ([id number])Indication: Benign essential hypertension On: :54 Request Comments: November 2016 TSH ([id number])Indication: Hypothyroidism, unspecified On: :53 Request Comments: due in November 2016 Vitamin D Hydroxy ([id number])Indication: Vitamin D deficiency, unspecified On: 58-Huf-225832:01 Request URINALYSIS, W/ MICRO ([id number])Indication: Benign essential hypertension On: 17-Fib-240874:00 Request MICROALBUMIN: CREATININE RATIO ([id number]) AND ([id number])Indication: Benign essential hypertension On: 06-Ugn-881030:00 Request METABOLIC PANEL, COMPREHENSIVE ([id number])Indication: Benign essential hypertension On: 24-Bgm-340229:00 Request LIPID PANEL ([id number])Indication: Hypercholesterolemia On: 33-Xsk-035515:00 Request CBC WITH MANUAL DIFF ([id number])Indication: Benign essential hypertension On: 04-Gji-344057:00 Request TSH ([id number])Indication: Hypothyroidism, unspecified On: 06-Okk-189820:00 Request Vitamin D Hydroxy ([id number])Indication: Osteoporosis On: :44 Request URINALYSIS, W/ MICRO ([id number])Indication: Benign essential hypertension On: :41 Request MICROALBUMIN: CREATININE RATIO ([id number]) AND ([id number])Indication: Benign essential hypertension On: :41 Request METABOLIC PANEL, COMPREHENSIVE ([id number])Indication: Benign essential hypertension On: :41 Request LIPID PANEL ([id number])Indication: Benign essential hypertension On: :41 Request CBC WITH MANUAL DIFF ([id number])Indication: Benign essential hypertension On: :41 Request TSH ([id number])Indication: Hypothyroidism, unspecified On: 17-Hba-558031:40 Request TSH ([id number])Indication: Hypothyroidism, unspecified On: 85-Wzu-464745:09 Request LIPID PANEL ([id number])Indication: Hypercholesterolemia On: :12 Request METABOLIC PANEL, COMPREHENSIVE ([id number])Indication: Hypercholesterolemia On: :12 Request TSH ([id number])Indication: Hypothyroidism, unspecified On: :12 Request Planned Encounters Medical; General Medical - On: 03-May-2018 7:45 [facility] Tayla Espinal DO, DO, Tayla Velez DO Planned Procedures ELECTROCARDIOGRAM, COMPLETE (ECG) On: 06-Dec-2017 Intent ([id number])By: Tayla Espinal DO Comments: nsr no acute chg DO, Tayla Espinal DO, Tayla PNEUM VAC ADLT/IMUMNOSPR, SBC/INTRM On: 24-Mar-2017 Intent ([id number])By: Tayla Espinal DO Comments: lot:[id number]:IM left deltoid dose:0.5ml given by:hayley Us LPN DO, Tayla Velez DO ELECTROCARDIOGRAM, COMPLETE (ECG) On: 04-Jan-2017 Intent ([id number])By: Tayla Espinal DO Comments: nsr no acute cgh DO, Tayla Espinal DO, Tayla PHYSICAL THERAPY EVALUATION ([id number])By: On: 11-May-2015 Intent Elizabeth Villanueva CNP Radiology - Knee - RightBy: Kay MUÑOZ, On: 11-May-2015 Intent Elizabeth Watts MAMMOGRAM, SCREENING, BOTH BREAST On: 22-Aug-2014 Intent ([id number])By: Tayla Espinal DO Comments: send results to Tayla Matthews DO, DO, Kathleen DEXA SCAN AXIAL SKELETON ([id number])By: On: 22-Aug-2014 Intent Tayla Espinal DO, DO, Kathleen Comments: send results to Tayla Rondon DO Eprescribed prescriptions ([id number])By: On: 13-Sep-2012 Intent Lilian Richardson LPN Inhaler Demonstration ([id number])By: Kay On: 04-Jul-2012 Intent Elizabeth MUÑOZ Inhaler Demonstration ([id number])By: [place] On: 04-Jul-2012 Intent WANDA Josefa Aerosol Treatment ([id number])By: Kay MUÑOZ, On: 04-Jul-2012 Intent Josefa Eprescribed prescriptions ([id number])By: On: 27-May-2011 Intent Kay MUÑOZ Josefa EKG ([id number])By: Tayla Espinal DO On: 23-Sep-2010 Intent Tayla Espinal DO, DO, Kathleen Comments: nsr no acute chg Eprescribed prescriptions ([id number])By: On: 23-Sep-2010 Intent Tayla Espinal DO, DO, Kathleen Fearon DO, Kathleen EKG ([id number])By: Tayla Espinal DO On: 01-Jun-2009 Intent Tayla Espinal DO, DO, Kathleen Comments: nsr no acute changes SPECIMEN HANDLING/TRANSPORT ([id number])By: On: 28-Nov-2008 Intent Keren Wilde LPN Radiology [...] Advance Directives Name Dates Details Immunization Registry [place] - Effective on 03/24/2017. Effective: 24-Mar-2017 Expiration [...]
--- OUTSIDE RECORDS SUMMARY | 2018-07-15 17:14 | XMS RPT_ITS | Continuity of Care Document ---
:1940 Author Organization [facility] Address [facility] [address] [place] [address] Phone Care Team Providers Name Role Phone [...] : 30-Mar-2017 End : 06-Dec-2017 Inactive DRISDOL, [id number] (Oral Capsule) 1 Capsule 2 X WEEK [...] Visit Report Result: Comments: See Note; NOTES: [facility] [address] [place], [place] [address]mac. [address] [place], [place] [address] OFFICE VISIT Date of Service: 11/07/17 MR#: [id number] Acct: [id number] Name: ANNA PRICE Rep #: [id number] : 1940 Provider: Stacey Pizano PA-C Age/Sex: 77/F Location: [facility] Status: Signed Intake Intake Visit Reasons: pain at mastectomy site 2017 Chief Comp laint: Encephalopathy Liability Claims Examiner Required: No Is patient in pain?: Yes [...] was treated with Gamma Knife treatment at [facility]. Patient had a follow-up MRI of the brain a [facility] which demonstrated dramatic decrease in the size [...] Laterality: left Musculoske letal disorder M79.9 11/08/17 4127 <Electronically signed by Stacey Pizano PA-C> Date Stacey Pizano PA-C Cosigner Signature: D ate (if applicable) CC: 31-Oct-2017 Surgery Visit Report Result: Comments: See Note; NOTES: [facility] [address] [place] [address] OFFICE VISIT Date of Service: 10/31/17 MR#: [id number] Acct: [id number] Name: ANNA PRICE Rep #: [id number] : 1940 Provider: Stacey Pizano PA-C Age/Sex: 77/F Location: [facility] Status: Signed Intake Intake Visit [...] was treated with Gamma Knife treatment at [facility]. Patient had a follow-up MRI of the brain at [facility] which demonstrated dramatic decrease in the [...] D/C Summary Result: Comments: See Note; NOTES: [facility] [address] [place] [address]. [address] [place], [place] [address] Fax REHABILITATION SERVICES DIS CHARGE SUMMARY MR#: [id number] Acct: [id number] Name: ANNA BARRERA Rep #: [id number] : 1940 77 From: Stephanie Schilling OTR/L, [...] % Improvement: 80 - Objective Objective/Function: right mill order scheduler 45#. right mill order scheduler 45#. right lat. pinch 8# righ t [...] please fell free to call me at [phone]. Thank you for the referral of this patient. Sincerely, STALIN Cunningham/Lu, KULWANTT <Electronically signed by Stephanie GANT/KULWANT LeighT> 10/25/17 1053 CC: Stacey bowie PA-C; Tayla Espinal DO MK Signed 16-Oct-2017 OT General Evaluation Result: Comments: See Note; NOTES: [facility] [address] [place] [address]. [address] [place] [address] Fax REHABILITATION SERVICES INI TIAL EVALUATION MR#: [id number] Acct: [id number] Name: ANNA BARRERA Rep #: [id number] : 1940 77 From: Stephanie REYNOSO CHT [...] Left WNL - Strength Shoulder: R/L 4/5 Plastic Frame Inserter: right 45# left 45# Lateral Pinch: right [...] to be FAXED BACK to us at [phone] for Medicare purposes. Please let me know [...] Summary (1) Result: Comments: See Note; NOTES: [facility] [address] [facility]. [address] [place] [address] Fax REHABILITATION SERVICES NIAS BENJAMIN SUMMARY MR#: [id number] Acct: [id number] Name: ANNA BARRERA Rep #: [id number] : 1940 77 From: Amelie GAMEZT Referring [...] please feel free to call me at [phone]. Thank you for the referral of this patient. Sincerely, Amelie Rodriguez <Electronically signed by Amelie Rodriguez DPT> 10/10/17 1028 CC: Stacey Pizano PA-C; Tayla Espinal DO ELR Signed 05-Oct-2017 OT General Evaluation Result: Comments: See Note; NOTES: [facility] [address] [place] [address]. [address] [place] [address] Fax REHABILITATION SERVICES INI TIAL EVALUATION MR#: [id number] Acct: [id number] Name: ANNA BARRERA Rep #: [id number] : 1940 77 From: Stephanie GANT/Lu, CHT [...] Left WNL - Strength Shoulder: R/L 4/5 Plastic Frame Inserter: right 45# left 45# Lateral Pinch: right [...] to be FAXED BACK to us at [phone] for Medicare purposes. Please let me know if there are questions or concerns regarding this plan of care. Vladimir peralta Signature: Date: <Electronically signed by Stephanie GANT/MARY Leigh> 10/05/17 0934 CC: Stacey Pizano PA-C; Tayla Espinal DO MK Signed For Medicare only, by signing this I certify the plan of care. Physicians Signature Date 08-Sep-2017 Emergency Department Summary Result: Comments: See Note; NOTES: [facility] Medical Records Department [address] [place] [address] Emergency Department Summary 09/08/17 1630 MR#: [id number] Acct: [id number] Name: ANNA BARRERA Rep #: [id number] : 1940 77 From: Jose May MD PCP: Tayla Espinal DO Status: REG ER ADDENDUM by Srinivas Gabriel on 09/08/17 at 1756 Patient was endorsed to me by the [facility] physician with instructions to check on CT [...] 2. Delirium This note was generated with CloudOnation software. It may contain incorrect words, spelling, [...] your Prima Care Provider. Call Doctors Registry ([phone]) or report to the closest Emergency Room. Call 911 if necessary. 09/08/17 1712 <Electronically signed by Jose May MD> Date ___ Jose May MD Cosigner Signature (If Indicated): Date CC: Tayla Espinal DO 08-Sep-2017 Emergency Department Summary Result: Comments: See Note; NOTES: [facility] Medical Records Department [address] [place] [address] Emergency Department Summary 09/08/17 1630 MR#: [id number] Acct: [id number] Name: ANNA BARRERA Rep #: [id number] : 1940 77 From: Jose May MD [...] 2. Delirium This note was generated with Vivino dictation software. It may contain incorrect words, [...] lems, contact your Primary Care Provider. Call [facility] ([phone]) or report to the closest Emergency Room. Call 911 if necessary. 09/08/17 6536 <Electronically signed by Jose iglesias MD> Date Jose May MD Cosigner Signature (If Indicated): Date CC: Tayla Kylie LINDER 08-Sep-2017 Brain/Head without Contrast Result: Comments: See Note; NOTES: [facility] Imaging Services [address] [place] [address] Brain/Head without Contrast MR#: [id number] Acct: [id number] Name: ANNA BARRERA Rep #: [id number] : 1940 F 77 From: Nasrin Orta MD PCP: Tayla Espinal DO Status: REG ER Study: Brain/Head without Contrast Date of Exam: 09/08/17 Exam# [id number] Ordering Dr: Jose May STUDY: CT BRAIN [...] Orta MD at 17:11 EDT Tel Direct: [phone], Service support , CC: Jose May MD; Tayla Espinal DO Manager Animation: Signed 08-Sep-2017 Chest 1 View (Portable) Result: Comments: See Note; NOTES: [facility] Imaging Services [address] [place] [address] Chest 1 View (Portable) MR#: [id number] Acct: [id number] Name: ANNA BARRERA Rep #: [id number] : 1940 F 77 From: Nasrin Orta MD PCP: Tayla Espinal DO Status: REG ER Study: Chest 1 View (Portable) Date of Exam: 09/08/17 Exam# [id number] Ordering Dr: Jose May MD STUD Y: [...] Orta MD at 17:17 EDT Tel Direct: [phone], Service s upport , CC: Jose May MD; Tayla Espinal DO Manager Animation: Signed 08-Sep-2017 Abdomen/Pelvis W IV Cont ONLY Result: Comments: See Note; NOTES: [facility] Imaging Services [address] [place] [address] Abdomen/Pelvis W IV Cont ONLY MR#: [id number] Acct: [id number] Name: ANNA BARRERA ep #: [id number] : 1940 F 77 From: Terence Calero MD PCP: Tayla Espinal DO Status: REG ER Study: Abdomen/Pelvis W IV Cont ONLY Date of Exam: 09/08/17 Exam# [id number] Ordering Dr: Jose May MD STUDY: CT [...] CC: Jose May MD; Tayla Espinal DO Manager Animation: Signed 23-Aug-2017 Surgery Visit Report Result: Comments: See Note; NOTES: [facility] [place] [address] [place] [address] OFFICE VISIT Date of Service: 08/23/17 MR#: [id number] Acct: [id number] Name: ANNA BETANCOURT Rep #: [id number] : 1940 Provider: Stacey Garcia Age/Sex: 77/F Location: [facility] Status: Signed Intake Intake Visit Reasons: F/U MASTECTOMY/CEBUL Liability Claims Examiner Required: No Is patient in pain?: No [...] was treated with Gamma Knife treatment at [facility] . She will have a follow up [...] W/WO Contrast Result: Comments: See Note; NOTES: [facility] Imaging Services [address] [place] [address] Brain W/WO Contrast MR#: [id number] Acct: [id number] Name: ANNA BARRERA Rep #: [id number] : 1940 F 77 From: Glenn Taylor DO PCP: Tayla Espinal DO Status: REG CLI Study: Brain W/WO Contrast Date of Exam: 07/31/17 Exam# [id number] Ordering Dr: Ky Burkett DO STUDY: MR [...] lateral ventricle and with a 3 mm sdri-kr-jfsiu shift of the septum pellucidum (coronal T2 [...] surrounding vasogenic edema produ cing a mild nwqs-md-xvcme midline shift and mild mass effect, most [...] CC: Tayla Espinal DO; Ky Burkett DO Manager Animation: Signed 24-Jul-2017 Inital Evaluation (1) - PT Result: Comments: See Note; NOTES: [facility] [address] [facility]. [address] [place] [address] Fax REHABILITATION SERVICES INITIAL EVALUATION MR#: [id number] Acct: [id number] Name: ANNA BARRERA Rep #: [id number] : 1940 77 From: Amelie Rodriguez DPT Referring Dr.: Stacey Pizano PA-C Status: REG RCR Insurance: [facility] MEDICARE A ONLY Patient's Visit [...] Paredes and Dr. Merritt. Sent her to [place]- which she lived in until Monday. Chemo 8x- CT scans- mets on the right lowe r lobe of the lung- Chest wall, fascia, muscle of the chest. Will have another scan at [facility] next monday. Does not [...] to be FAXED BACK to us at [phone] for Medicare purposes. Please let me know [...] Discharge Instruction Result: Comments: See Note; NOTES: [facility] Medical Records Department [address] [place] [address] Discharge Instruction 07/15/17 1045 MR#: [id number] Acct: [id number] Name: ANNA PEREZ Rep #: [id number] : 1940 77 From: Tre Mcguire DO [...] your Primary Care Provider. Call [facility] ([phone] ) or report to the closest Emergency Room. Call 911 if necessary. 07/15/17 1047 <Electronically signed by Tre Mcguire DO> Date Tre wahl DO Cosigner Signature (If Indicated): Date CC: Tayla Espinal DO 15-Jul-2017 Emergency Department Summary Result: Comments: See Note; NOTES: [facility] Medical Records Department [address] [place] [address] Emergency Department Summary 07/15/17 1042 MR#: [id number] Acct: [id number] Name: ANNA BARRERA Rep #: [id number] : 1940 77 From: Tre Mcguire DO PCP: Tayla Espinal DO Status: REG ER - ER Visit Summary Date of Service: 07/15/17 Chief Complaint: [Diarrhea] History of Present Illness: The patient is a 77 F [presents to the emergency department with symptoms of diarrhea that started this morning around 7 AM. Patient states she has had 3-4 watery stools. Patient is from [facility]. Patient denies any abdominal pain or blood [...] any fevers. She was told at the [facility] that her temperature was 99.2 and it [...] Impression: [Diarrhea] This note was generated with Vivino dictation software. It may contain incorrect wo [...] unexpected problems, contact your Primary Care Provider. [facility] Doctors Registry ([phone]) or report to the closest Emergency Room. Call 911 if necessary. 07/15/17 1045 <Electronically signed by Tre Mcguire DO> Date Tre Mcguire DO Cosigner Signature (If Indicated): Date CC: Tayla Espinal DO 13-Jul-2017 Surgery Visit Report Result: Comments: See Note; NOTES: [facility] [address] [place] [address] OFFICE VISIT Date of Service: 07/12/17 MR#: [id number] Acct: [id number] Name: ANNA BETANCOURT Rep #: [id number] : 1940 Provider: Stacey Garcia Age/Sex: 77/F Location: [facility] Status: Signed Intake Intake Visit Reasons: F/U MASTECTOMY/CEBUL Liability Claims Examiner Required: No Is patient in pain?: Yes [...] patient - May return to therapy at [facility] - Prescription for mastectomy bras was [...] Visit Report Result: Comments: See Note; NOTES: [facility] [address] [place] [address] [place] [address] OFFICE VISIT Date of Service: 06/27/17 MR#: [id number] Acct: [id number] Name: ANNA BETANCOURT Rep #: [id number] : 1940 Provider: Stacey Garcia Age/Sex: 77/F Location: [facility] Status: Signed Intake Intake Visit Reasons: F/U MASTECTOMY/CEBUL Chief Complaint: left mastectomy RC Liability Claims Examiner Required: No Is patient in pain?: No [...] mcg PO CHAVEZ 06/15/17 [History Confirmed 06/27/17] [facility] Breast cancer (Acute) Left [...] Lead Electrocardiogram Result: Comments: See Note; NOTES: [facility] Cardiovascular Services [address] [place] [address] 12 Lead EKG 06/17/17 1008 MR#: [id number] Acct: [id number] Name: ANNA BARRERA Rep #: [id number] : 1940 76 From: Delvin Coleman MD Attending Dr: Josh Merritt MD Status: [facility] Ordering Dr: Josh Merritt MD Date: 06/17/17 [place] [facility] Sex: F C Admitted: Test Reason : P REOP Blood Pressure : / mmHG Vent. Rate : 075 BPM Atrial Rate : 075 BPM P-R Int : 168 ms QRS Dur : 096 ms QT Int : 386 ms P-R-T Axes : 041 -23 060 degrees QTc Int : 431 ms Normal sinus rhythm Bor derline ECG Confirmed by DELVIN COLEMAN MD ([id number]), news editor DANIELLE STAHL ([id number]) on 06/21/2017 3:06:43 PM Referred By: TOBY Confirmed By:DELVIN COLEMAN MD 06/21/17 1506 Date Delvin Coleman MD CC: Tayla Espinal DO Signed 01-Jun-2017 Surgery Visit Report Result: Comments: See Note; NOTES: [facility] [address] [facility] [address] [place] [address] OFFICE VISIT Date of Service: 05/30/17 MR#: [id number] Acct: [id number] Name: ANNA BETANCOURT Rep #: [id number] : 1940 Provider: Stacey Garcia Age/Sex: 76/F Location: [facility] Status: Signed Intake Vital Signs05/30/17 Height 5 ft 5 in 05/30/17 Weight: 145 lb Int grayson Visit Reasons: Update H AND P.el Liability Claims Examiner Required: No Is patient in pain?: No [...] 76-year-old female. She was referred by her [facility] Dr. Ky Burkett for surgical treatment of her left breast cancer. She was hospitalized at the [facility] January 10, 2017 becaus mac of [...] Department Summary Result: Comments: See Note; NOTES: [facility] Medical Records Department [address] [place] [address] Emergency Department Summary 03/15/172011 MR#: [id number] Acct: [id number] Name: ANNA BARRERA Rep #: [id number] : 1940 76 From: Munir Kennedy MD PCP: Tayla Espinal DO Status: DEP ER - ER Visit Summary Date of Service: 03/15/17 Chief Complaint: [] Right ankle pain and passed out. History of Present Illness: The patient is a 76 F [] here with family after underwear cutter arrival. Patient states that she stepped off [...] problems, contact your Primary Care Provider. [facility] ([phone]) or report to the closest Emergency Room. Call 911 if necessary. 03/30/17 4372 <Electronically signed by Munir Kennedy MD> Date Munir Reavesigner Signature (If Indicated): Date CC: Tayla Espinal DO 17-Mar-2017 12 Lead Electrocardiogram Result: Comments: See Note; NOTES: [facility] Cardiovascular Services [address] [place] [address] 12 Lead EKG 03/15/171406 MR#: [id number] Acct: [id number] Name: ANNA BARRERA Rep #: [id number] : 1940 76 From: Delvin Coleman MD [...] ECG Confirmed by DELVIN COLEMAN MD ([id number]), news editor DANIELLE STAHL (56) on 03/17/2017 2:36:13 PM Referred By: DOUGIE Confirmed By:DELVIN COLEMAN MD 03/17/17 1436 Date Delvin Coleman MD CC: Tayla Espinal DO Date Dictated: 03/15/171406 Date Transcribed: 03/15/171406 Manager Animation: Signed 15-Mar-2017 Emergency Department Summary Result: Comments: See Note; NOTES: [facility] Medical Records Department [address] [place] [address] Emergency Department Summary 03/15/17 1528 MR#: [id number] Acct: [id number] Name: ANNA BARRERA Rep #: [id number] : 1940 76 From: Munir Kennedy MD [...] problems, contact your Primary Care Provider. Call [facility] ([phone]) or report to the closest Emergency Room. Call 911 if necessary. 03/15/17 1530 <Electronically signed by Munir Kennedy MD> Date Munir Kennedy MD Cosigner Signature (If Indicated): Date CC: Tayla Espinal DO 15-Mar-2017 Ankle min 3 Views Result: Comments: See Note; NOTES: [facility] Imaging Services [address] [place] [address] Ankle min 3 Views MR#: [id number] Acct: [id number] Name: ANNA BARRERA Rep #: [id number] : 1940 F 76 From: Asa Verma MD PCP: Tayla Espinal DO Status: REG ER Study: Ankle min 3 Views Date of Exam: 03/15/17 Exam# [id number] Ordering Dr: Munir Kennedy MD STUDY: X-RAY [...] Asa Verma MD at 14:22 EDT Tel [phone], Service support , CC: Munir Kennedy MD; Tayla Espinal DO Manager Animation: Signed 06-Feb-2017 Emergency Department Summary Result: Comments: See Note; NOTES: [facility] Medical Records Department [address] [place] [address] Emergency Department Summary 02/06/17 1134 MR#: [id number] Acct: [id number] Name: ANNA BARRERA Rep #: [id number] : 1940 76 From: Srinivas Gabriel MD [...] by having bleeding on dressi ng changes. [facility] staff was concerned for the possibility of [...] dressing changes by the staff at her custodial and requested referral to wound care. I [...] Additional Instructions: Fol low-up with wound care [phone] What to do if you have Problems For any increased pain, shortness of breath, bleeding, nausea or vomiting, chest pain, or any unexpected problems, contact your [facility] Care Provider. Call [facility] Registry ([phone]) or report to the closest Emergency Room. Call 911 if necessary. 02/06/17 3119 <Electronically signed by Srinivas Gabriel MD> Da te Srinivas Gabriel MD Cosigner Signature (If Indicated): Date CC: Tayla Espinal DO 10-Jan-2017 Chest WITH Contrast Result: Comments: See Note; NOTES: [facility] Imaging Services [address] [place] [address] Verdana 4d Chest WITH Contrast MR#: [id number] Acct: [id number] Name: ANNA BARRERA Rep #: [id number] : 1940 F 76 From: Asa Verma MD PCP: Kylie Tayla Status: REG ER Study: Chest WITH Contrast Date of Exam: 01/10/17 Exam# [id number] Ordering Dr: Nasrin Lizama STUDY: CT CHEST [...] Asa Verma MD at 10:40 EDT Tel [phone], Service support , CC: Nasrin Lizama MD; Tayla Espinal DO Manager Animation: Signed 03-Jul-2015 PT D/C Summary Result: Comments: See Note; NOTES: [facility] [address] 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 - Objective Objective/Function: Patient [...] feel free to call me a t [phone]. Thank you for the referral of this patient. Sincerely, Amelie Rodriguez <Electronically signed by Amelie Rodriguez > 07/03/15 1031 CC: Elizabeth Villanueva; Tayla Espinal DO ELR Signed 10-Jun-2015 Re-Evaluation - PT Result: Comments: See Note; NOTES: [facility] [facility] [place], [place] [address] Fax [facility]EE[facility]UATION / [facility] MR#: [id number] Acct: [id number] Name: ANNA BARRERA Rep #: [id number] : 1940 74 From: Amelie Rodriguez Referring [...] do not hesitate to contact me at [phone] by phone or if you have questions or concerns regarding this new plan of care! Sincerely, Amelie Rodriguez <Electronically signed by Amelie Rodriguez > 06/10/15 1058 CC: Elizabeth Espinal DO ELR Signed For Medicare only, by signing this I certify the plan of care. Physicians Signature Date 19-May-2015 Inital Evaluation - PT Result: Comments: See Note; NOTES: [facility] [address] [place] [address]. [address] [place] [address] [facility]ax [facility] MR#: [id number] Acct: [id number] Name: ANNA BARRERA Rep #: [id number] : 1940 74 From: Amelie Rodriguez Referring [...] in the AM and meets with a health and wellness instructor 1x a week. - Objective Posture: [...] to be FAXED BACK to us at [phone] for Medicare purposes. Please let me know if there are questions or conc erns regarding this plan of care. Physician Signature: Date: <Electronically signed by Amelie Rodriguez > 05/19/15 1445 CC: Elizabeth Espinal DO ELR Signed For Medicare only, by signing this I certify the plan of care. Physicians Signature Date 11-May-2015 Knee 4 or More Views Result: Comments: See Note; NOTES: [facility] Imaging Services [address] [place] [address] Verdavangie 4d Knee 4 or More Views MR#: [id number] Acct: [id number] Name: ANNA PRICE Rep #: [id number] : 1940 F 74 From: Afshin Gant DO PCP: Tayla Espinal DO Status: REG CLI Study: Knee 4 or More Views Date of Exam: 05/11/15 Exam# [id number] Ordering Dr: Elizabeth Richards STUDY: X-RAY - [...] Afshin Gant DO at 9:20 EST Tel [phone], Service support [phone], RAD/Knee 4 or More Views IMPRESSION: Degenerative arthrosis. Electro nically Signed: Afshin Gant DO at 9:20 EST Tel [phone], Service support [phone], CC: Elizabeth Villanueva; Tayla Espinal DO Manager Animation: Signed 30-Oct-2014 Bilat Scrn Digital AND CAD Result: Comments: See Note; NOTES: [facility] Imaging Services [address] [place] [address] Breast Imaging Report MR#: [id number] Acct: [id number] Name: YADIGABINOTIFFANYANNAWill Mott p #: [id number] : 1940 F 74 From: Afshin Gant DO PCP: Tayla Espinal DO Status: REG CLI Study: Bilat Scrn Digital AND CAD Date of Exam: 10/30/14 Exam# [id number] Ordering Dr: Douglas Espinal DO MAMMOGRAPHY - [...] Afshin Gant DO at 14:34 EDT Tel [phone], Service support [phone], CC: Tayla Espinal DO Manager Animation: Signed 30-Oct-2014 Dexa Bone Density Study (HP) Result: Comments: See Note; NOTES: [facility] Imaging Services [address] [place] [address] Bone Density Report MR#: [id number] Acct: [id number] Name: ANNA BARRERA Rep #: [id number] : 1940 F 74 From: Asa Verma MD PCP: Tayla Espinal DO Status: [facility] CLI Study: Dexa Bone Density Study (HP) Date of Exam: 10/30/14 Exam# [id number] Ordering Dr: Tayla Espinal DO STUDY: DUAL [...] Asa Verma MD at 8:23 EDT Tel [phone], Service support [phone], CC: Tayla Espinal DO Manager Animation: Signed 12-Nov-2013 OT Discharge Summary Result: Comments: See Note; NOTES: [facility] [address] [place] [address]. [address] [place] [address] Fax REHABILITATION SERVIC ES DISCHARGE SUMMARY MR#: [id number] Acct: [id number] Name: ANNA BARRERA Rep #: [id number] : 1940 73 From: Stephanie Schilling Referring [...] discharged. Stephanie Schilling OTR/L T: NTS JOB: [id number] <Electronically signed by Stephanie Schilling > 11/12/13 [...] smoker Vital Signs Date Test Result Details 57-Tgm-20679:11 Temperature 97.8 f Comments: Method: Temporal Pulse [...] 0.00 cm Results Date Description Value Details 64-Tqd-488322:31 T3, FREE (TRIDOTHYRONINE) (87629) Comments: PATIENT NOT FASTINGPERFORMED BY: [facility] SystemsAtlantic Rehabilitation InstituteTlzgla5917 [facility] [id number] Triiodothyronine (T3), Free 3.1 pg/mL (Normal) Range: 2.0-4.4 11-Ink-307997:31 T4, FREE (THYROXINE) (72222) Comments: PATIENT NOT FASTINGPERFORMED BY: [facility] SystemsAtlantic Rehabilitation InstituteWswirx7175 [facility] [id number] T4,Free(Direct) 2.14 ng/dL (Abnormal) Range: 0.82-1.77 94-Zvy-253095:31 TSH (THYROID STIMULATING Comments: PATIENT NOT FASTINGPERFORMED BY: Corevalus SystemsShannon Ville 0601270 [facility] [id number] HORMONE) (45718) TSH 0.058 {uIU/mL} (Abnormal) Range: 0.450-4.500 54-Jbz-914059:52 CALCIFEDIOL (22655) Comments: PATIENT NOT FASTINGPERFORMED BY: [facility] Center6370 [facility] [id number] Vitamin D, 25-Hydroxy 20.8 ng/mL (Abnormal) Range: 30.0-100.0 Comments: Vitamin D deficiency has been defined by the [place] ofMedicine and an Endocrine Society practice guideline as alevel of serum 25-OH vitamin D less than 20 ng/mL (1,2).The Endocrine Society went on to further define vitamin Dinsufficiency as a level between 21 and 29 ng/mL (2).1. IOM ([place] of Medicine). 2010. Dietary reference intakes for calcium and D. [place]: The National Academies Press.2. Ham MF, Alvino ALCALA, Ileana AYALA, et al. Evaluation, treatment, and prevention of vitamin D deficiency: an Endocrine Society clinical practice guideline. JCEM. 2010; 96(7):1911-30. 06-Yur-969559:52 MICROALBUMIN: CREATININE RATIO Comments: PATIENT NOT FASTINGPERFORMED BY: [employer] Rlffps5340 [facility] [id number] (10356) AND (03971) Alb/Creat Ratio <22.6 {mg/g_creat} (Normal) Range: 0.0-30.0 Albumin, Urine <3.0 ug/mL (Normal) Creatinine, Urine 13.3 mg/dL (Normal) :52 METABOLIC PANEL, COMPREHENSIVE Comments: PATIENT NOT FASTINGPERFORMED BY: [employer] Uglvzu4822 [facility] [id number] (34920) ALT (SGPT) 12 [iU]/L (Normal) Range: 0-32 [...] 8-27 Glucose 86 mg/dL (Normal) Range: 65-99 99-Pnc-781123:52 CBC W/AUTO DIFF WBC (56801) Comments: PATIENT NOT FASTINGPERFORMED BY: [facility] Vydqbf7262 [facility] [id number] Immature Grans (Abs) 0.0 {x10E3/uL} (Normal) Range: [...] 4.9 {x10E3/uL} (Normal) Range: 3.4-10.8 :52 TSH (73481) Comments: PATIENT NOT FASTINGPERFORMED BY: [facility]6370 [facility] [id number] TSH 0.032 {uIU/mL} (Abnormal) Range: 0.450-4.500 :52 T4, FREE (THYROXINE) (02411) Comments: PATIENT NOT FASTINGPERFORMED BY: [address] [id number] T4,Free(Direct) 2.26 ng/dL (Abnormal) Range: 0.82-1.77 :52 T3, FREE (TRIDOTHYRONINE) (11571) Comments: PATIENT NOT FASTINGPERFORMED BY: [facility]6370 [facility] [id number] Triiodothyronine,Free,Serum 3.6 pg/mL (Normal) Range: 2.0-4.4 34-Fha-112235:50 Urinalysis, Complete Comments: Order Date: 09/08/17How was Urine Obtained? MACHINE ACCOUNTANT TO [facility] [address] [place], [address] MUCUS, URINE 0 SEEN {/hpf} [...] (Normal) CLARITY Clear (Normal) COLOR Straw (Normal) 07-Eyc-763969:20 CBC W/Diff, Automated Comments: [facility] [address] [place], [place], [address] PATH REV October (Normal) Absolute Lymph 0.49 [...] 4.2-5.4 WBC 2.9 K/mm3 (Abnormal) Range: 4.4-11.0 23-Iva-381166:20 Comprehensive Metabolic Profil Comments: 'TROP' Serial specimen #1, #2, #3, or #4: 1[facility] [address] [place], [place], [address] GAP 5 (Normal) Range: 5-15 CO2 31.0 mmol/L (Normal) Range: 21.0-32.0 CL 102 mmol/L (Normal) Range: 98-107 K 3.6 mmol/L (Normal) Range: 3.5-5.1 NA 138 mmol/L (Normal) Range: 136-145 T BILI 0.40 mg/dL (Normal) Range: 0.20-1.00 ALT 88 U/L (Abnormal) Range: 13-56 Comments: Please note revised ALT reference range cbhogefjf36/28/2018. ALK P 95 U/L (Normal) Range: 45-117 [...] A.D.A. criteria.Please note revised GLUCOSE reference range qiztgbpqq82/02/2018. 51-Ovb-868993:20 Lipase Comments: 'TROP' Serial specimen #1, #2, #3, or #4: [address] [place] [address] [address] [place], [phone] LIPASE 389 U/L (Normal) Range: 73-393 51-Stn-846202:20 Troponin-I Comments: 'TROP' Serial specimen #1, #2, #3, or #4: [address] [place] [address] [place], [address] TROPONIN-I < 0.02 ng/mL (Normal) Comments: TROPONIN-I EXPECTED VALUES <0.05 NEGATIVE 0.06 - 0.59 AT RISK OF VA > OR = 0.60 SUGGEST VA 21-Xhu-36646:50 Basic Metabolic Profile (BMP) Comments: [facility] [address]upas[address] [place], [phone] GAP 9 (Normal) Range: 5-15 CO2 24.0 [...] 7-18 GLU 100 mg/dL (Normal) Range: 70-110 91-Xsy-51460:50 CBC W/Diff, Automated Comments: [facility] [address] [place], [place], [address] SMEAR COMMENT SCANNED (Normal) Absolute Lymph 0.40 [...] -Jun-2017 BREAST MASTECTOMY (CHOOSE See Note Comments: [facility] [address] [place], [place], [phone] 7:15 SIDE (Normal) Comments: Patient: ANNA BARRERA : 1940 (77/F) Acct Num: [id number] Phys: Shaina ESTEBAN,Josh Unit Num: [id number] [place] [facility] [place]: [id number] Received: 06/22/17936 Spec Type: B [...] node measures 3.5 cm in greatest dimension. Program Management Specialist sections are subm itted as follows: 1 [...] superior, inferior and posteri or margin, 15-17 sales representative door to door sections from the other areas, 18 multiple lymph nodes, 19-21 each cassette containing one bisected lymph node, 22 two lymph nodes, 23 AND 24 one lymph node, 2 5 AND 26 one lymph node. / SJ:rg 06/23/17 TC:0 CPT: 79635 HEADER OPERATION: Left modified radical mastectomy PRE-OP [...] previously performed on section of tumo r ([id number] / HY99-728). 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 PATHOLOGIC STAGE: p T1a(y) pN0 Mx The above summary is in compliance with College of [place] Pathology (CAP) Cancer Protocols Checklist and [place] Joint Committee on Cancer (AJCC), Staging Manual, 7th Ed. SJ:blanco 06/26/17 Signed Young Malcolm 06/26/17 <signature on file> 22-Jun-2017 IMMUNOHISTOCHEMISTRY See Note Comments: [facility] [address] [place], [place], [address] 0:00 (Normal) Comments: Patient: ANNA BARRERA : 1940 (77/F) Acct Num: [id number] Phys: Shaina ESTEBAN,Josh Unit Num: [id number] [place] [facility] [place]imen: [id number] Received: 06/26/17 - 1201 Spec Type: IMMUNO TISSUES TISSUES: Left breast, NOS SPECIMEN INFORMATION: Tissue Source: Left breast and axillary contents Clinical Info: Left breast cancer Specimen Number: [id number] #6 AND 24 CPT code: 39299, 37259 x3 METHODOLOGY: Deparaffinized sections of prefer/formalin-fixed tissue [...] developed and their performance characteristics determined by [facility]. They may not have been [...] the above diagnosis. IDC:AM PHYSICIAN AND INSTITUTION [address] [address] Signed Young Malcolm 06/27/17 <signature on file> 48-Kss-62308:57 Basic Metabolic Profile (BMP) Comments: [facility] [address] [place] [address], [id number] GAP 6 (Normal) Range: 5-15 CO2 31.0 [...] :57 CBC-Complete Blood Cnt No Diff Comments: [facility] [address] [place], [place], [address] MPV 9.5 fL (Normal) Range: 6.2-12.0 PLT [...] 4.4-11.0 :57 Thyroid Stim Hormone (TSH) Comments: [facility] [address] [place], [address] TSH 0.26 {uIU/mL} (Abnormal) Range: 0.358-3.74 35-Qij-946563:08 Basic Metabolic Profile (BMP) Comments: [facility] [address] [place], [place], [address] GAP 7 (Normal) Range: 5-15 CO2 27.0 [...] 7-18 GLU 108 mg/dL (Normal) Range: 70-110 81-Nnu-548399:30 Culture, Sputum Comments: [facility] K[address]ct[address]sojx2837 [facility]. [place], [place], [address] CUSP See Note (Normal) Comments: Gram StainAcceptable Specimen? Yes (<25 Epithelial cells per/lpf) Gram Stain 1+ White Blood Cells No Epithelial cells 2+ Gram positive cocci in clusters Resp. CultureMixed normal respirat ory anita. No Haemophilus, Streptococcus pneumoniae, beta-hemolytic Streptococcus or Staphylococcus aureus isolated. ORGANISM 1: YeastAmount Growth Rare 62-Xod-291806:00 Culture, Sputum Comments: [facility] N[address]qk[address] [facility] [address] [place], [place], [address] CUSP See Note Comments: Gram StainAcceptable Specimen? [...] <=20 S(NF) indicates non-formulary veena g at [facility]. Approval by Infectious Disease Specialist required before non-formulary drugs may be ordered and/or dispensed. BREAST BIOPSY (CHOOSE SITE) See Note Comments: [facility] [address] [place], [address] 716:06 (Normal) Comments: Patient: ANNA BARRERA : 1940 (76/F) Acct Num: [id number] Phys: Andrew ESTEBAN,Ceferino Unit Num: [id number] Loc: [facility] Specimen: [id number] Received: 01/18/17 - 1024 Spe c Type: BREAST BX TISSUES TISSUES: COMMENT Immunohistochemistry ([id number]) supports the above diagnosis. 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 Case is reviewed in consultation with Dr. Ibarra of [employer]. The complete consultative report is viewable in [...] intwo cassettes. / AM:blanco 01/18/17 TC:0 CPT: 56577 HEADER OPERATION: Left breast core biopsy PRE-OP DIAGNOSIS: Breast cancer TISSUE SUBMITTED: Left breast core biopsy ISCHEMIC TIME: 18 minutes FIXATION TIME: 17 hours MICROSCOPIC DESCRIPTION Sli diana are reviewed. MICROSCOPIC DIAGNOSIS Left breast, core biopsy: Poorly differentiated ductal carcinoma. AM:blanco 01/19/17 Signed Deo Garza 01/30/17 <signature on file> IMMUNOHISTOCHEMISTRY See Note Comments: [facility] [address] [place], [address] 70:00 (Normal) Comments: Patient: ANNA BARRERA : 1940 (76/F) Acct Num: [id number] Phys: Ceferino Morales MD Unit Num: [id number] Loc: [facility] Specimen: [id number] Received: 01/19/171030 Spe c Type: IMMUNO TISSUES TISSUES: SPECIMEN INFORMATION: Tissue Source: Left breast core biopsy Clinical Info: Breast cancer Specimen Number: [id number] #1 CPT code: 35569, 01724 x22, 65693 x3 METHODOLOGY: Deparaffinized sections of prefer/formalin- fixed [...] ER (clone 6F11) 38%, weak to moderate GA (clone 16/1E2) 0% Her-2Neu (clone CB11) 0 The prognostic test for HER2 is performed on formalin-fixed paraffin embedded tissue. A 3+ (positive) staining pattern is defined as intense, homogeneous, complete, circumferential membran ous staining in >10% of contiguous tumor cells. A similar weak (2+) staining pattern is interpreted as equivocal. JENNA follow-up testing is recommended for all equivocal cases. Positivity/negativity for ER/GA is reported if > or < 1% of the tumor cells are immuno- reactive, respectively. The ASCO/CAP criteria is used for scoring. Reference: Journal of Clinical Oncology, 2013; 31:3533-1771 AN D 2010; 16:1925-7692. Duration of fixation: 17 Hrs; Sample Adequate: Yes. These assays have not been validated on decalcified tissues. Results should beinterpreted with caution given the likelihoo d of false negativity on decalcifiedspecimens. These tests were developed and their performance characteristics determined by [facility]. They may not have been [...] reviewed in consultation with Dr. Ibarra of [employer]. Complete consultative report is viewable in patient's EMR Case has been reviewed in consultation with Dr. Malcolm who concurs with the abovediagnosis. IDC: PHYSICIAN AND INSTITUTION [address] [address] Signed [facility] 01/30/17 <signature on file> 96-Czw-97694:04 Basic Metabolic Profile (BMP) Comments: [facility] [address] [place], [address] GAP 6 (Normal) Range: 5-15 CO2 30.0 [...] <126 mg/dLsuggests IMPAIRED HOMEOSTASIS per A.D.A. criteria. 75-Ivg-87035:04 CBC W/Diff, Automated Comments: [facility] [address] [place], [address] Absolute Lymph 1.46 {X10_3/ul} (Normal) Range: 0.83-4.51 [...] Range: 4.4-11.0 :04 Partial Thromboplast Time Comments: [facility] [address] [place], [place], [phone] PTT 26.4 s (Normal) Range: 24.1-36.2 :04 Prothrombin Time w/INR Comments: [facility] [address] [place], [place], [address] INR 1.0 (Normal) PROTIME 12.7 s (Normal) Range: 11.7-14.9 :05 CBC W/Diff, Automated Comments: [facility] [address] [place], [place], [address] Absolute Lymph 2.04 {X10_3/ul} (Normal) Range: 0.83-4.51 [...] Range: 4.4-11.0 :05 Comprehensive Metabolic Profil Comments: [facility] [address] [place], [address] GAP 7 (Normal) Range: 5-15 CO2 30.0 [...] (Normal) Range: 70-110 :05 Lipid Profile Comments: [facility] [address] [place], [place], [address] VLDL 10 mg/dL (Normal) Range: 5-40 LDL [...] High Risk :05 Microalb:Creat Ratio,Random UR Comments: [facility] [address] [place], [place], [address] MALB:CREAT 8.6 {mg/g_CRE} (Normal) MICROALBUMIN,UR 5.8 mg/L (Normal) UR CREAT 67.00 mg/dL (Normal) :05 Thyroid Stim Hormone (TSH) Comments: [facility] [address] [place], [place], [address] TSH 0.65 {uIU/mL} (Normal) Range: 0.358-3.74 :05 Urinalysis, Routine (Dipstick) Comments: How was Urine Obtained? [facility] [address] [place], [address] LEUK ESTERASE 100 /ul (Abnormal) OCCULT BLOOD-UR 25 /ul (Abnormal) NITRITE UR Negative (Normal) UROBILI Normal mg/dL (Normal) PROT DIPSTX Negative mg/dL (Normal) pH UR 6.5 (Normal) Range: 5.0 - 8.0 SP.GR. DIPSTX 1.010 (Normal) Range: 1.002-1.030 KETONE UR Negative mg/dL (Normal) BILIRUBIN URINE Negative mg/dL (Normal) GLUCOSE, UR Normal mg/dL (Normal) CLARITY Clear (Normal) COLOR Yellow (Normal) 38-Pvl-473697:08 TSH (87495) Comments: PATIENT NOT FASTINGPERFORMED BY: [facility] Ocxrua3267 [facility] [id number] Information: [id number] TSH 1.080 {uIU/mL} (Normal) Range: 0.450-4.500 21-Nov-20146:06 CBC W/Diff, Automated Comments: Test performed at:[facility] [address] [place], [place] [id number] Absolute Lymph 2.22 {X10_3/ul} (Normal) Range: 0.83-4.51 [...] :06 Comprehensive Metabolic Profil Comments: Test performed at:[facility] [address] [place], [place] [address] GAP 4 (Abnormal) Range: 5-15 CO2 31.0 [...] 70-110 :06 Lipid Profile Comments: Test performed at:[facility] Tsljwcwncj1768 [facility] [address] [place], [place] [address] VLDL 11 mg/dL (Normal) Range: 5-40 LDL [...] :06 Microalb:Creat Ratio,Random UR Comments: Test performed at:[facility] [address] [place] [address] MALB:CREAT 21.7 {mg/g_CRE} (Normal) MICROALBUMIN,UR 7.8 mg/L (Normal) UR CREAT 35.8 mg/dL (Normal) :06 Thyroid Stim Hormone (TSH) Comments: Test performed at:[facility] [address] [place] [address] TSH 0.46 {uIU/mL} (Normal) Range: 0.358-3.74 :06 Urinalysis, Routine (Dipstick) Comments: How was Urine Obtained? CLEAN CATCHTest performed at:[facility] [address] [place] [address] ; will review at 11/26 [...] :06 Vitamin D,25 Hydroxy Comments: Test performed at:[facility] [address] [place], [place] [address] Vitamin D 25-OH 23.4 ng/mL (Normal) Comments: Vitamin D 25(OH) Status Range Deficiency <20 ng/mL (50nmol/L) Insuffciency 20 - 30 ng/mL (50 - 75 nmol/L) Sufficiency 30 - 100 ng/mL (75 - 250 nmol/L) Toxicity >100 ng/mL (>250 nmol/L) 17-Sep-20139:09 TSH (40291) Comments: PATIENT NOT FASTINGPERFORMED BY: [place] 6194570 [facility] [id number] Information: [id number], [id number] TSH 1.860 {uIU/mL} (Normal) Range: 0.450-4.500 82-Cts-914788:27 TSH (08239) Comments: PATIENT NOT FASTINGPERFORMED BY: [facility]6370 [facility] [id number] Information: [id number] TSH 1.760 {uIU/mL} (Normal) Range: 0.450-4.500 :05 [...] D deficiency has been defined by the [place] ofMedicine and an Endocrine Society practice guideline as alevel of serum 25-OH vitamin D less than 20 ng/mL (1,2).The Endocrine Society went on to further define vitamin Dinsufficiency as a level between 21 and 29 ng/mL (2).1. IOM ([place] of Medicine). 2010. Dietary reference intakes for calcium and D. [place]: The National Academies Press.2. Ham MF, Alvino NC, Ileana AYALA, et al. Evaluation, treatment, and prevention of vitamin D deficiency: an Endocrine Society clinical practice guideline. JCEM. 2010; 96(7): 1911-30.Performed at: - [facility] [id number] Director: Stephanie Young MD, Phone: [phone] 25-Feb-20119:43 TSH (05150) Comments: PATIENT NOT FASTINGPERFORMED BY: [facility] [id number] Information: [id number] TSH 2.940 {uIU/mL} (Normal) Range: 0.450-4.500 :43 CALCIFIDIOL (73276) VIT D 25 Comments: PATIENT NOT FASTINGPERFORMED BY: JOSE DAVID [facility] Ikuseo65[address] RoadDublin [place] [id number] Vitamin D, 25-Hydroxy 24.5 ng/mL (Abnormal) Range: 32.0-100.0 Comments: Recent studies consider the lower limit of 32.0 ng/mL to be athreshold for optimal health.Juarez BW. J Nutr. 2004;135(2):317-22. 92-Vfk-547926:08 PARATHORMONE (53834) Comments: PATIENT NOT FASTINGPERFORMED BY: CB [facility] Unuztr4316 [address]a RoadDublin [place] [id number] Information: [id number] PTH, Intact 47 pg/mL (Normal) Range: 15-65 :06 Microscopic Examination Comments: PATIENT NOT FASTINGPERFORMED BY: CB [facility] Ubbzjl3656 [address] RoadDublin [place] [id number] Bacteria Few (Normal) Mucus Threads Present (Normal) Epithelial Cells (non renal) None seen {/hpf} (Normal) Range: 0 - 10 RBC None seen {/hpf} (Normal) Range: 0 - 3 WBC 0-5 {/hpf} (Normal) Range: 0 - 5 :06 Vitamin D Hydroxy (96805) Comments: PATIENT NOT FASTINGPERFORMED BY: CB [facility] Hypwum9522 [address] RoadDublin [place] [id number] Vitamin D, 25-Hydroxy 27.0 ng/mL (Abnormal) Range: 32.0-100.0 Comments: Recent studies consider the lower limit of 32.0 ng/mL to be athreshold for optimal health.Juarez BW. J Nutr. 2004;135(2):317-22. :06 TSH (06802) Comments: PATIENT NOT FASTINGPERFORMED BY: CB [facility] Yruulk0176 [address]a RoadDublin [place] [id number] TSH 4.620 {uIU/mL} (Abnormal) Range: 0.450-4.500 :06 URINALYSIS, W/ MICRO (00302) Comments: PATIENT NOT FASTINGPERFORMED BY: [facility] SystemsAtl[facility] Rehabilitation InstituteXqlmye8785 [facility] [id number] Microscopic Examination MICRON (Normal) Comments: Microscopic follows if indicated. Microscopic Examination See below: (Normal) Nitrite, Urine Negative (Normal) Bilirubin Negative (Normal) Ketones Negative (Normal) Occult Blood Negative (Normal) Urobilinogen,Semi-Qn 0.2 mg/dL (Normal) Range: 0.0-1.9 Glucose Negative (Normal) Protein Negative (Normal) Appearance Clear (Normal) Urine-Color Yellow (Normal) WBC Esterase Negative (Normal) pH 6.5 (Normal) Range: 5.0-7.5 Specific [place] 1.007 (Normal) Range: 1.005-1.030 :06 MICROALBUMIN: CREATININE RATIO Comments: PATIENT NOT FASTINGPERFORMED BY: [facility]6370 [facility] [id number] (59755) AND (55418) Microalb/Creat Ratio 13.5 {mg/g_creat} (Normal) Range: 0.0-30.0 Creatinine, Urine 19.3 mg/dL (Normal) Range: 15.0-278.0 Microalbumin, Urine 2.6 ug/mL (Normal) Range: 0.0-17.0 :06 METABOLIC PANEL, COMPREHENSIVE Comments: PATIENT NOT FASTINGPERFORMED BY: [facility]6370 [facility] [id number] (56643) Alkaline Phosphatase, S 81 [iU]/L (Normal) Range: [...] MANUAL DIFF Comments: PATIENT NOT FASTINGPERFORMED BY: [facility]CoAtl[facility] InstituteLmfwjx0387 [facility] [id number] Information: [id number] (66117) Immature Grans (Abs) 0.0 {x10E3/uL} (Normal) Range: [...] CHOL 191 mg/dL (Normal) Comments: <200 mg/dL Hvlfwiden959-871 mg/dL Borderline>240 mg/dL High Risk HDL 57 [...] {uIU/mL} (Normal) Range: 0.358-3.74 :05 VIT D,25 98926 29.2 ng/mL (Abnormal) Range: 32.0-100.0 Comments: Recent studies consider the lower limit of 32.0 ng/mL to daren threshold for optimal health.Larry BARRERA. J Nutr. 2004;135(2):317-22.Performed at: [facility] [id number] Director: Caprice Woods MD 34-Atp-18563:58 URINE VENICE CULTURE-DESMOND COL Comments: PATIENT NOT FASTINGClinical Information: SRC:UR ADD [id number] PERFORMED BY: [address] [id number] COUNT (60065) Result 1 BETAGB (Normal) Comments: Beta hemolytic [...] Final report (Normal) Culture,Comprehensive :59 Urinalysis, Office (25286) UA - BILIRUBIN Negative (Normal) UA - [...] TIMED TSH 3.448 {uIU/mL} Comments: PERFORMED BY: [facility]6370 [facility] [id number] 5:11 (Normal) Range: 0.450-4.500 TSH 4.26 {uIU/mL} [...] breast cancer Metastatic breast cancer : Reviewed Music Executive Letter Indication: Metastatic breast cancer Benign essential hypertension : Continue Current Prescription(s) Indication: Benign essential hypertension Hypercholesterolemia : Cholesterol mgmt Indication: Hypercholesterolemia Benign essential hypertension : HTN/CAD Red Flags Indication: Benign essential hypertension Metastatic breast cancer : Reviewed Lab Indication: Metastatic breast cancer Metastatic breast cancer : Reviewed Diagnostic Tests Indication: Metastatic breast cancer Metastatic breast cancer : Reviewed Music Executive Letter Indication: Metastatic breast cancer Non-smoker : [...] of right ankle, initial encounter : Reviewed Music Executive Letter Indication: Sprain of right ankle, initial encounter Metastatic breast cancer : Reviewed Music Executive Letter Indication: Metastatic breast cancer Benign essential [...] Osteoporosis Planned Observations TSH (THYROID STIMULATING HORMONE) (75948)Indication: Hypothyroidism, unspecified On: 29-Fyr-849314:56 Request TSH (THYROID STIMULATING HORMONE) (24722)Indication: Hypothyroidism, unspecified On: 66-Fae-515477:36 Request T4, FREE (THYROXINE) (47780)Indication: Hypothyroidism, unspecified On: 40-Dwj-006553:33 Request T3, FREE (TRIDOTHYRONINE) (20613)Indication: Hypothyroidism, unspecified On: 61-Ntj-688194:33 Request CALCIFIDIOL (16509) VIT D 25Indication: Vitamin D deficiency, unspecified On: :47 Request TSH (12250)Indication: Hypothyroidism, unspecified On: :46 Request URINALYSIS, W/ MICRO (04961)Indication: Benign essential hypertension On: :46 Request MICROALBUMIN: CREATININE RATIO (78745) AND (31846)Indication: Benign essential hypertension On: :46 Request METABOLIC PANEL, COMPREHENSIVE (89588)Indication: Benign essential hypertension On: :46 Request LIPID PANEL (69213)Indication: Hypercholesterolemia On: :46 Request CBC W/AUTO DIFF WBC (84734)Indication: Benign essential hypertension On: :46 Request URINE VENICE CULTURE-DESMOND COL COUNT (38179)Indication: UTI symptoms On: 04-Bav-496413:31 Request LIPID PANEL (98548)Indication: Hypercholesterolemia On: :55 Request Comments: November 2016 MICROALBUMIN: CREATININE RATIO (84454) AND (47164)Indication: Benign essential hypertension On: :54 Request Comments: November 2016 URINALYSIS (81464)Indication: Benign essential hypertension On: :54 Request Comments: November 2016 CBC, Platelets & Auto Diff (71160)Indication: Benign essential hypertension On: :54 Request Comments: November 2016 Metabolic Panel, Comprehensive (04880)Indication: Benign essential hypertension On: :54 Request Comments: November 2016 TSH (53774)Indication: Hypothyroidism, unspecified On: :53 Request Comments: due in November 2016 Vitamin D Hydroxy (88088)Indication: Vitamin D deficiency, unspecified On: 61-Xuw-464325:01 Request URINALYSIS, W/ MICRO (41384)Indication: Benign essential hypertension On: 07-Yqy-253754:00 Request MICROALBUMIN: CREATININE RATIO (58500) AND (53294)Indication: Benign essential hypertension On: 66-Hkw-314202:00 Request METABOLIC PANEL, COMPREHENSIVE (30111)Indication: Benign essential hypertension On: 75-Idr-804459:00 Request LIPID PANEL (99315)Indication: Hypercholesterolemia On: 93-Och-369279:00 Request CBC WITH MANUAL DIFF ([id number])Indication: Benign essential hypertension On: [id number]-Qyj-[id number]:00 Request TSH ([id number])Indication: Hypothyroidism, unspecified On: 17-Mey-479591:00 Request Vitamin D Hydroxy ([id number])Indication: Osteoporosis On: :44 Request URINALYSIS, W/ MICRO ([id number])Indication: Benign essential hypertension On: :41 Request MICROALBUMIN: CREATININE RATIO ([id number]) AND ([id number])Indication: Benign essential hypertension On: :41 Request METABOLIC PANEL, COMPREHENSIVE ([id number])Indication: Benign essential hypertension On: :41 Request LIPID PANEL ([id number])Indication: Benign essential hypertension On: :41 Request CBC WITH MANUAL DIFF ([id number])Indication: Benign essential hypertension On: :41 Request TSH ([id number])Indication: Hypothyroidism, unspecified On: 55-Ctc-547679:40 Request TSH ([id number])Indication: Hypothyroidism, unspecified On: 59-Lit-861375:09 Request LIPID PANEL ([id number])Indication: Hypercholesterolemia On: :12 Request METABOLIC PANEL, COMPREHENSIVE ([id number])Indication: Hypercholesterolemia On: :12 Request TSH ([id number])Indication: Hypothyroidism, unspecified On: :12 Request Planned Encounters Medical; General Medical - On: 03-May-2018 7:45 [facility] Tayla Espinal DO, DO, Tayla Velez DO Planned Procedures ELECTROCARDIOGRAM, COMPLETE (ECG) On: 06-Dec-2017 Intent ([id number])By: Tayla Espinal DO Comments: nsr no acute chg DO, Tayla Espinal DO, Tayla PNEUM VAC ADLT/IMUMNOSPR, SBC/INTRM On: 24-Mar-2017 Intent ([id number])By: Tayla Espinal DO Comments: lot:[id number]:IM left deltoid dose:0.5ml given by:hayley Us LPN DO, Tayla Velez DO ELECTROCARDIOGRAM, COMPLETE (ECG) On: 04-Jan-2017 Intent ([id number])By: Tayla Espinal DO Comments: nsr no acute cgh DO, Tayla Espinal DO, Tayla PHYSICAL THERAPY EVALUATION ([id number])By: On: 11-May-2015 Intent Elizabeth Villanueva CNP Radiology - Knee - RightBy: Kay MUÑOZ, On: 11-May-2015 Intent Elizabeth Watts MAMMOGRAM, SCREENING, BOTH BREAST On: 22-Aug-2014 Intent ([id number])By: Tayla Espinal DO Comments: send results to Tayla Matthews DO, DO, Kathleen DEXA SCAN AXIAL SKELETON ([id number])By: On: 22-Aug-2014 Intent Tayla Espinal DO, DO, Kathleen Comments: send results to Tayla Rondon DO Eprescribed prescriptions ([id number])By: On: 13-Sep-2012 Intent Lilian Richardson LPN Inhaler Demonstration ([id number])By: Kay On: 04-Jul-2012 Intent Elizabeth MUÑOZ Inhaler Demonstration ([id number])By: [place] On: 04-Jul-2012 Intent WANDA Josefa Aerosol Treatment ([id number])By: Kay MUÑOZ, On: 04-Jul-2012 Intent Josefa Eprescribed prescriptions ([id number])By: On: 27-May-2011 Intent Kay MUÑOZ Josefa EKG ([id number])By: Tayla Espinal DO On: 23-Sep-2010 Intent Tayla Espinal DO, DO, Kathleen Comments: nsr no acute chg Eprescribed prescriptions ([id number])By: On: 23-Sep-2010 Intent Tayla Espinal DO, DO, Kathleen Fearon DO, Kathleen EKG ([id number])By: Tayla Espinal DO On: 01-Jun-2009 Intent Tayla Espinal DO, DO, Kathleen Comments: nsr no acute changes SPECIMEN HANDLING/TRANSPORT ([id number])By: On: 28-Nov-2008 Intent Keren Wilde LPN Radiology [...] Advance Directives Name Dates Details Immunization Registry [place] - Effective on 03/24/2017. Effective: 24-Mar-2017 Expiration [...]
--- OUTSIDE RECORDS SUMMARY | 2018-07-15 17:14 | XMS RPT_ITS | Continuity of Care Document ---
:1940 Author Organization [facility] Address [facility]7 [facility] [address] [place] [address] Phone Care Team Providers Name Role Phone [...] : 30-Mar-2017 End : 06-Dec-2017 Inactive DRISDOL, 13142SVZH (Oral Capsule) 1 Capsule 2 X WEEK FOR 4 WEEKS THEN 1 TAB WEEKLY for 0 days Quantity: 8 {Capsule} Refills: 4 Ordered:27-May-2011 Keren Wilde LPN Start : 27-Sep-2010 End : 27-May-2011 Inactive LEVOTHYROXINE SODIUM, 112MCG (Oral Tablet) 1 tab qd, 2 tabs on Monday Tablet Daily for 0 days Quantity: 34 {Tablet} Refills: 1 Ordered:21-Dec-2006 Lilian Richardsno LPN Start : 21-Dec-2006 End : 05-May-2008 [...] Visit Report Result: Comments: See Note; NOTES: [facility] [address] [place], [place] [address]. [address] [place], [place] [address] OFFICE VISIT Date of Service: 11/07/17 MR#: [id number] Acct: [id number] Name: ANNA PRICE Rep #: [id number] : 1940 Provider: Stacey Pizano PA-C Age/Sex: 77/F Location: [facility] Status: Signed Intake Intake Visit Reasons: pain at mastectomy site 2017 Chief Comp laint: Encephalopathy Jinriksha Driver Required: No Is patient in pain?: Yes [...] was treated with Gamma Knife treatment at [facility]. Patient had a follow-up MRI of the brain a [facility] which demonstrated dramatic decrease in the [...] Laterality: left Musculoske letal disorder M79.9 11/08/17 4057 <Electronically signed by Stacey Pizano PA-C> Date Stacey Pizano PA-C Cosigner Signature: D ate (if applicable) CC: 31-Oct-2017 Surgery Visit Report Result: Comments: See Note; NOTES: [facility] [address] [place] [address] OFFICE VISIT Date of Service: 10/31/17 MR#: [id number] Acct: [id number] Name: ANNA PRICE Rep #: [id number] : 1940 Provider: Stacey Pizano PA-C Age/Sex: 77/F Location: [facility] Status: Signed Intake Intake Visit Reasons: [...] was treated with Gamma Knife treatment at [facility]. Patient had a follow-up MRI of the brain at [facility] which demonstrated dramatic decrease in the [...] D/C Summary Result: Comments: See Note; NOTES: [facility] [address] [place] [address]. [address] [place], [place] [address] Fax REHABILITATION SERVICES DIS CHARGE SUMMARY MR#: [id number] Acct: [id number] Name: ANNA BARRERA Rep #: [id number] : 1940 77 From: Stephanie Schilling OTR/L, [...] % Improvement: 80 - Objective Objective/Function: right color tester 45#. right color tester 45#. right lat. pinch 8# righ t [...] please fell free to call me at [phone]. Thank you for the referral of this patient. Sincerely, STALIN Cunningham/Lu, KULWANTT <Electronically signed by Stephanie GANT/KULWANT LeighT> 10/25/17 1053 CC: Stacey bowie PA-C; Tayla Espinal DO MK Signed 16-Oct-2017 OT General Evaluation Result: Comments: See Note; NOTES: [facility] [address] [place] [address]. [address] [place] [address] Fax REHABILITATION SERVICES INI TIAL EVALUATION MR#: [id number] Acct: [id number] Name: ANNA BARRERA Rep #: [id number] : 1940 77 From: Stephanie REYNOSO CHT [...] Left WNL - Strength Shoulder: R/L 4/5 Wedding Day Coordinator: right 45# left 45# Lateral Pinch: right [...] to be FAXED BACK to us at [phone] for Medicare purposes. Please let me know [...] Summary (1) Result: Comments: See Note; NOTES: [facility] [address] [facility]. [address] [place] [address] Fax REHABILITATION SERVICES NISA BENJAMIN SUMMARY MR#: [id number] Acct: [id number] Name: ANNA BARRERA Rep #: [id number] : 1940 77 From: Amelie GAMEZT Referring [...] please feel free to call me at [phone]. Thank you for the referral of this patient. Sincerely, Amelie Rodriguez <Electronically signed by Amelie Rodriguez DPT> 10/10/17 1028 CC: Stacey Pizano PA-C; Tayla Espinal DO ELR Signed 05-Oct-2017 OT General Evaluation Result: Comments: See Note; NOTES: [facility] [address] [place] [address]. [address] [place] [address] Fax REHABILITATION SERVICES INI TIAL EVALUATION MR#: [id number] Acct: [id number] Name: ANNA BARRERA Rep #: [id number] : 1940 77 From: Stephanie GANT/Lu, CHT [...] Left WNL - Strength Shoulder: R/L 4/5 Wedding Day Coordinator: right 45# left 45# Lateral Pinch: right [...] to be FAXED BACK to us at [phone] for Medicare purposes. Please let me know if there are questions or concerns regarding this plan of care. Vladimir peralta Signature: Date: <Electronically signed by Stephanie GANT/MARY Leigh> 10/05/17 0934 CC: Stacey Pizano PA-C; Tayla Espinal DO MK Signed For Medicare only, by signing this I certify the plan of care. Physicians Signature Date 08-Sep-2017 Emergency Department Summary Result: Comments: See Note; NOTES: [facility] Medical Records Department [address] [place] [address] Emergency Department Summary 09/08/17 1630 MR#: [id number] Acct: [id number] Name: ANNA BARRERA Rep #: [id number] : 1940 77 From: Jose May MD PCP: Tayla Espinal DO Status: REG ER ADDENDUM by Srinivas Gabriel on 09/08/17 at 1756 Patient was endorsed to me by the [facility] physician with instructions to check [...] 2. Delirium This note was generated with [employer]ic Glacialation software. It may contain incorrect words, spelling, [...] your Prima Care Provider. Call Doctors Registry ([phone]) or report to the closest Emergency Room. Call 911 if necessary. 09/08/17 1712 <Electronically signed by Jose May MD> Date ___ Jose May MD Cosigner Signature (If Indicated): Date CC: Tayla Espinal DO 08-Sep-2017 Emergency Department Summary Result: Comments: See Note; NOTES: [facility] Medical Records Department [address] [place] [address] Emergency Department Summary 09/08/17 1630 MR#: [id number] Acct: [id number] Name: ANNA BARRERA Rep #: [id number] : 1940 77 From: Jose May MD [...] 2. Delirium This note was generated with [employer] dictation software. It may contain incorrect words, [...] lems, contact your Primary Care Provider. Call [facility] ([phone]) or report to the closest Emergency Room. Call 911 if necessary. 09/08/17 6853 <Electronically signed by Jose iglesias MD> Date Jose May MD Cosigner Signature (If Indicated): Date CC: Tayla Kylie LINDER 08-Sep-2017 Brain/Head without Contrast Result: Comments: See Note; NOTES: [facility] Imaging Services [address] [place] [address] Brain/Head without Contrast MR#: [id number] Acct: [id number] Name: ANNA BARRERA Rep #: [id number] : 1940 F 77 From: Nasrin Orta MD PCP: Tayla Espinal DO Status: REG ER Study: Brain/Head without Contrast Date of Exam: 09/08/17 Exam# [id number] Ordering Dr: Jose May STUDY: CT BRAIN [...] Orta MD at 17:11 EDT Tel Direct: [phone], Service support , CC: Jose May MD; Tayla Espinal DO Personalized Living Manager: Signed 08-Sep-2017 Chest 1 View (Portable) Result: Comments: See Note; NOTES: [facility] Imaging Services [address] [place] [address] Chest 1 View (Portable) MR#: [id number] Acct: [id number] Name: ANNA BARRERA Rep #: [id number] : 1940 F 77 From: Nasrin Orta MD PCP: Tayla Espinal DO Status: REG ER Study: Chest 1 View (Portable) Date of Exam: 09/08/17 Exam# [id number] Ordering Dr: Jose May MD STUD Y: [...] Orta MD at 17:17 EDT Tel Direct: [phone], Service s upport , CC: Jose May MD; Tayla Espinal DO Personalized Living Manager: Signed 08-Sep-2017 Abdomen/Pelvis W IV Cont ONLY Result: Comments: See Note; NOTES: [facility] Imaging Services [address] [place] [address] Abdomen/Pelvis W IV Cont ONLY MR#: [id number] Acct: [id number] Name: ANNA BARRERA ep #: [id number] : 1940 F 77 From: Terence Calero MD PCP: Tayla Espinal DO Status: REG ER Study: Abdomen/Pelvis W IV Cont ONLY Date of Exam: 09/08/17 Exam# [id number] Ordering Dr: Jose May MD STUDY: CT [...] CC: Jose May MD; Tayla Espinal DO Personalized Living Manager: Signed 23-Aug-2017 Surgery Visit Report Result: Comments: See Note; NOTES: [facility] [place] [address] [place] [address] OFFICE VISIT Date of Service: 08/23/17 MR#: [id number] Acct: [id number] Name: ANNA BETANCOURT Rep #: [id number] : 1940 Provider: Stacey Garcia Age/Sex: 77/F Location: [facility] Status: Signed Intake Intake Visit Reasons: F/U MASTECTOMY/CEBUL Jinriksha Driver Required: No Is patient in pain?: No [...] was treated with Gamma Knife treatment at [facility] [place] . She will have a follow up [...] W/WO Contrast Result: Comments: See Note; NOTES: [facility] Imaging Services [address] [place] [address] Brain W/WO Contrast MR#: [id number] Acct: [id number] Name: ANNA BARRERA Rep #: [id number] : 1940 F 77 From: Glenn Taylor DO PCP: Tayla Espinal DO Status: REG CLI Study: Brain W/WO Contrast Date of Exam: 07/31/17 Exam# [id number] Ordering Dr: Ky Burkett DO STUDY: MR [...] lateral ventricle and with a 3 mm oipz-dw-ywxty shift of the septum pellucidum (coronal T2 [...] surrounding vasogenic edema produ cing a mild lpvv-hw-ckcde midline shift and mild mass effect, most [...] CC: Tayla Espinal DO; Ky Burkett DO Personalized Living Manager: Signed 24-Jul-2017 Inital Evaluation (1) - PT Result: Comments: See Note; NOTES: [facility] [address] [facility]. [address] [place] [address] Fax REHABILITATION SERVICES INITIAL EVALUATION MR#: [id number] Acct: [id number] Name: ANNA BARRERA Rep #: [id number] : 1940 77 From: Amelie Rodriguez DPT Referring Dr.: Stacey Pizano PA-C Status: REG RCR Insurance: [facility] MEDICARE A ONLY Patient's Visit Information [...] Paredes and Dr. Merritt. [facility] until Monday. Chemo 8x- CT scans- mets on the right lowe r lobe of the lung- Chest wall, fascia, muscle of the chest. Will have another scan at [facility] next monday. Does not have [...] to be FAXED BACK to us at [phone] for Medicare purposes. Please let me know [...] Discharge Instruction Result: Comments: See Note; NOTES: [facility] Medical Records Department [address] [place] [address] Discharge Instruction 07/15/17 1045 MR#: [id number] Acct: [id number] Name: ANNA PEREZ Rep #: [id number] : 1940 77 From: Tre Mcguire DO [...] your Primary Care Provider. Call [facility] ([phone] ) or report to the closest Emergency Room. Call 911 if necessary. 07/15/17 1047 <Electronically signed by Tre Mcguire DO> Date Tre wahl DO Cosigner Signature (If Indicated): Date CC: Tayla Espinal DO 15-Jul-2017 Emergency Department Summary Result: Comments: See Note; NOTES: [facility] Medical Records Department [address] [place] [address] Emergency Department Summary 07/15/17 1042 MR#: [id number] Acct: [id number] Name: NANA BARRERA Rep #: [id number] : 1940 77 From: Tre Mcguire DO PCP: Tayla Espinal DO Status: REG ER - ER Visit Summary Date of Service: 07/15/17 Chief Complaint: [Diarrhea] History of Present Illness: The patient is a 77 F [presents to the emergency department with symptoms of diarrhea that started this morning around 7 AM. Patient states she has had 3-4 watery stools. Patient is from [facility]. Patient denies any abdominal pain or [...] any fevers. She was told at the [facility] that her temperature was 99.2 and [...] Impression: [Diarrhea] This note was generated with [employer] dictation software. It may contain incorrect wo [...] unexpected problems, contact your Primary Care Provider. [facility] Doctors Registry ([phone]) or report to the closest Emergency Room. Call 911 if necessary. 07/15/17 1045 <Electronically signed by Tre Mcguire DO> Date Tre Mcguire DO Cosigner Signature (If Indicated): Date CC: Tayla Espinal DO 13-Jul-2017 Surgery Visit Report Result: Comments: See Note; NOTES: [facility] [address] [place] [address] OFFICE VISIT Date of Service: 07/12/17 MR#: [id number] Acct: [id number] Name: ANNA BETANCOURT Rep #: [id number] : 1940 Provider: Stacey Garcia Age/Sex: 77/F Location: [facility] Status: Signed Intake Intake Visit Reasons: F/U MASTECTOMY/CEBUL Jinriksha Driver Required: No Is patient in pain?: Yes [...] May return to therapy at [facility] - Prescription for mastectomy bras was [...] Visit Report Result: Comments: See Note; NOTES: [facility] [address] [place] [address] [place] [address] OFFICE VISIT Date of Service: 06/27/17 MR#: [id number] Acct: [id number] Name: ANNA BETANCOURT Rep #: [id number] : 1940 Provider: Stacey Garcia Age/Sex: 77/F Location: [facility] Status: Signed Intake Intake Visit Reasons: F/U MASTECTOMY/CEBUL Chief Complaint: left mastectomy RC Jinriksha Driver Required: No Is patient in pain?: No [...] mcg PO CHAVEZ 06/15/17 [History Confirmed 06/27/17] [facility] Breast cancer (Acute) Left breast [...] Lead Electrocardiogram Result: Comments: See Note; NOTES: [facility] Cardiovascular Services [address] [place] [address] 12 Lead EKG 06/17/17 1008 MR#: [id number] Acct: [id number] Name: ANNA BARRERA Rep #: [id number] : 1940 76 From: Delvin Coleman MD Attending Dr: Josh Merritt MD Status: [facility] Ordering Dr: Josh Merritt MD Date: 06/17/17 Location: [facility] Sex: F C Admitted: Test [...] ECG Confirmed by DELVIN COLEMAN MD ([id number]), staff editor DANIELLE STHAL ([id number]) on 06/21/2017 3:06:43 PM Referred By: TOBY Confirmed By:DELVIN COLEMAN MD 06/21/17 1506 Date Delvin Coleman MD CC: Tayla Espinal DO Signed 01-Jun-2017 Surgery Visit Report Result: Comments: See Note; NOTES: [facility] [address] [place] [address] OFFICE VISIT Date of Service: 05/30/17 MR#: [id number] Acct: [id number] Name: ANNA BETANCOURT Rep #: [id number] : 1940 Provider: Stacey Garcia Age/Sex: 76/F Location: [facility] Status: Signed Intake Vital Signs05/30/17 Height 5 ft 5 in 05/30/17 Weight: 145 lb Int grayson Visit Reasons: Update H AND P.el Jinriksha Driver Required: No Is patient in pain?: No [...] 76-year-old female. She was referred by her [facility] Dr. Ky Burkett for surgical treatment of her left breast cancer. She was hospitalized at the [facility] January 10, 2017 [facility] of [...] Department Summary Result: Comments: See Note; NOTES: [facility] Medical Records Department [address] [place] [address] Emergency Department Summary 03/15/172011 MR#: [id number] Acct: [id number] Name: ANNA BARRERA Rep #: [id number] : 1940 76 From: Munir Kennedy MD PCP: Tayla Espinal DO Status: DEP ER - ER Visit Summary Date of Service: 03/15/17 Chief Complaint: [] Right ankle pain and passed out. 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 Patient states that she stepped off [...] problems, contact your Primary Care Provider. [facility] ([phone]) or report to the closest Emergency Room. Call 911 if necessary. 03/30/17 3787 <Electronically signed by Munir Kennedy MD> Date Munir Reavesigner Signature (If Indicated): Date CC: Tayla Espinal DO 17-Mar-2017 12 Lead Electrocardiogram Result: Comments: See Note; NOTES: [facility] Cardiovascular Services [address] [place] [address] 12 Lead EKG 03/15/171406 MR#: [id number] Acct: [id number] Name: ANNA BARRERA Rep #: [id number] : 1940 76 From: Delvin Coleman MD [...] ECG Confirmed by DELVIN COLEMAN MD ([id number]), staff editor DANIELLE STAHL (56) on 03/17/2017 2:36:13 PM Referred By: DOUGIE Confirmed By:DELVIN COLEMAN MD 03/17/17 1436 Date Delvin Coleman MD CC: Tayla Espinal DO Date Dictated: 03/15/171406 Date Transcribed: 03/15/171406 Personalized Living Manager: Signed 15-Mar-2017 Emergency Department Summary Result: Comments: See Note; NOTES: [facility] Medical Records Department [address] [place] [address] Emergency Department Summary 03/15/17 1528 MR#: [id number] Acct: [id number] Name: ANNA BARRERA Rep #: [id number] : 1940 76 From: Munir Kennedy MD [...] problems, contact your Primary Care Provider. Call [facility] ([phone]) or report to the closest Emergency Room. Call 911 if necessary. 03/15/17 1530 <Electronically signed by Munir Kennedy MD> Date Munir Kennedy MD Cosigner Signature (If Indicated): Date CC: Tayla Espinal DO 15-Mar-2017 Ankle min 3 Views Result: Comments: See Note; NOTES: [facility] Imaging Services [address] [place] [address] Ankle min 3 Views MR#: [id number] Acct: [id number] Name: ANNA BARRERA Rep #: [id number] : 1940 F 76 From: Asa Verma MD PCP: Tayla Espinal DO Status: REG ER Study: Ankle min 3 Views Date of Exam: 03/15/17 Exam# [id number] Ordering Dr: Munir Kennedy MD STUDY: X-RAY [...] Asa Verma MD at 14:22 EDT Tel [phone], Service support , CC: Munir Kennedy MD; Tayla Espinal DO Personalized Living Manager: Signed 06-Feb-2017 Emergency Department Summary Result: Comments: See Note; NOTES: [facility] Medical Records Department [address] [place] [address] Emergency Department Summary 02/06/17 1134 MR#: [id number] Acct: [id number] Name: ANNA BARRERA Rep #: [id number] : 1940 76 From: Srinivas Gabriel MD [...] by having bleeding on dressi ng changes. halfway staff was concerned for the possibility of [...] dressing changes by the staff at her [facility] and requested referral to wound care. I [...] Additional Instructions: Fol low-up with wound care [phone] What to do if you have Problems For any increased pain, shortness of breath, bleeding, nausea or vomiting, chest pain, or any unexpected problems, contact your [facility] Care Provider. Call [facility] Registry ([phone]) or report to the closest Emergency Room. Call 911 if necessary. 02/06/17 3156 <Electronically signed by Srinivas Gabriel MD> Da te Srinivas Gabriel MD Cosigner Signature (If Indicated): Date CC: Tayla Espinal DO 10-Jan-2017 Chest WITH Contrast Result: Comments: See Note; NOTES: [facility] Imaging Services [address] [place] [address] Verdana 4d Chest WITH Contrast MR#: [id number] Acct: [id number] Name: ANNA BARRERA Rep #: [id number] : 1940 F 76 From: Asa Verma MD PCP: Kylie Tayla Status: REG ER Study: Chest WITH Contrast Date of Exam: 01/10/17 Exam# [id number] Ordering Dr: Nasrin Lizama STUDY: CT CHEST [...] Asa Verma MD at 10:40 EDT Tel [phone], Service support , CC: Nasrin Lizama MD; Tayla Espinal DO Personalized Living Manager: Signed 03-Jul-2015 PT D/C Summary Result: Comments: See Note; NOTES: [facility] [address] [facility]. [address] [place] [address] Fax REHABILITATION SE RVICES DISCHARGE SUMMARY MR#: [id number] Acct: [id number] Name: ANNA BARRERA Rep #: [id number] : 1940 75 From: Amelie Rodriguez Referring [...] is planning on continuing with a personal banking representative and dileep robledo. - Objective Objective/Function: Patient [...] feel free to call me a t [phone]. Thank you for the referral of this patient. Sincerely, Amelie Rodriguez <Electronically signed by Amelie Rodriguez > 07/03/15 1031 CC: Elizabeth Villanueva; Tayla Espinal DO ELR Signed 10-Jun-2015 Re-Evaluation - PT Result: Comments: See Note; NOTES: [facility] [facility] [place], [place] [address] Fax REEVALUATION / [facility]ERAP[facility] MR#: [id number] Acct: [id number] Name: ANNA BARRERA Rep #: [id number] : 1940 74 From: Amelie Rodriguez Referring [...] do not hesitate to contact me at [phone] by phone or if you have questions or concerns regarding this new plan of care! Sincerely, Amelie Rodriguez <Electronically signed by Amelie Rodriguez > 06/10/15 1058 CC: Elizabeth Espinal DO ELR Signed For Medicare only, by signing this I certify the plan of care. Physicians Signature Date 19-May-2015 Inital Evaluation - PT Result: Comments: See Note; NOTES: [facility] [address] [place] [address]. [address] [place] [address] Fax REHABILITATION [facility] INITIAL EVALUATION MR#: [id number] Acct: [id number] Name: ANNA BARRERA Rep #: [id number] : 1940 74 From: Amelie Rodriguez Referring [...] in the AM and meets with a phlebotomy instructor 1x a week. - Objective Posture: [...] to be FAXED BACK to us at [phone] for Medicare purposes. Please let me know if there are questions or conc erns regarding this plan of care. Physician Signature: Date: <Electronically signed by Amelie Rodriguez > 05/19/15 1445 CC: Elizabeth Espinal DO ELR Signed For Medicare only, by signing this I certify the plan of care. Physicians Signature Date 11-May-2015 Knee 4 or More Views Result: Comments: See Note; NOTES: [facility] Imaging Services [address] [place] [address] Verdavangie 4d Knee 4 or More Views MR#: [id number] Acct: [id number] Name: ANNA PRICE Rep #: [id number] : 1940 F 74 From: Afshin Gant DO PCP: Tayla Espinal DO Status: REG CLI Study: Knee 4 or More Views Date of Exam: 05/11/15 Exam# [id number] Ordering Dr: Elizabeth Richards STUDY: X-RAY - [...] Afshin Gant DO at 9:20 EST Tel [phone], Service support [phone], RAD/Knee 4 or More Views IMPRESSION: Degenerative arthrosis. Electro nically Signed: Afshin Gant DO at 9:20 EST Tel [phone], Service support [phone], CC: Elizabeth Villanueva; Tayla Epsinal DO Personalized Living Manager: Signed 30-Oct-2014 Bilat Scrn Digital AND CAD Result: Comments: See Note; NOTES: [facility] Imaging Services [address] [place] [address] Breast Imaging Report MR#: [id number] Acct: [id number] Name: YADIGABINOTIFFANYANNAWill Mott p #: [id number] : 1940 F 74 From: Afshin Gant DO PCP: Tayla Espinal DO Status: REG CLI Study: Bilat Scrn Digital AND CAD Date of Exam: 10/30/14 Exam# [id number] Ordering Dr: Douglas Espinal DO MAMMOGRAPHY - [...] Afshin Gant DO at 14:34 EDT Tel [phone], Service support [phone], CC: Tayla Espinal DO Personalized Living Manager: Signed 30-Oct-2014 Dexa Bone Density Study (HP) Result: Comments: See Note; NOTES: [facility] Imaging Services [address] [place] [address] Bone Density Report MR#: [id number] Acct: [id number] Name: ANNA BARRERA Rep #: [id number] : 1940 F 74 From: Asa Verma MD PCP: Tayla Espinal DO Status: [facility] CLI Study: Dexa Bone Density Study (HP) Date of Exam: 10/30/14 Exam# [id number] Ordering Dr: Tayla Espinal DO STUDY: DUAL [...] Asa Verma MD at 8:23 EDT Tel [phone], Service support [phone], CC: Tayla Espinal DO Personalized Living Manager: Signed 12-Nov-2013 OT Discharge Summary Result: Comments: See Note; NOTES: [facility] [address] [place] [address]. [address] [place] [address] Fax REHABILITATION SERVIC ES DISCHARGE SUMMARY MR#: [id number] Acct: [id number] Name: ANNA BARRERA Rep #: [id number] : 1940 73 From: Stephanie Schilling Referring [...] discharged. Stephanie Schilling OTR/L T: NTS JOB: [id number] <Electronically signed by Stephanie Schilling > 11/12/13 [...] smoker Vital Signs Date Test Result Details 26-Hmq-64577:11 Temperature 97.8 f Comments: Method: Temporal Pulse [...] 0.00 cm Results Date Description Value Details 61-Xwn-445221:31 T3, FREE (TRIDOTHYRONINE) (97479) Comments: PATIENT NOT FASTINGPERFORMED BY: BerGenBioSaint Peter's University HospitalIzyhhu9105 [facility] [id number] Triiodothyronine (T3), Free 3.1 pg/mL (Normal) Range: 2.0-4.4 57-Atj-941560:31 T4, FREE (THYROXINE) (24881) Comments: PATIENT NOT FASTINGPERFORMED BY: BerGenBioSaint Peter's University HospitalPvkwvz3397 [facility] [id number] T4,Free(Direct) 2.14 ng/dL (Abnormal) Range: 0.82-1.77 71-Hdt-103491:31 TSH (THYROID STIMULATING Comments: PATIENT NOT FASTINGPERFORMED BY: BerGenBioSarah [place] 3044070 [facility] [id number] HORMONE) (07727) TSH 0.058 {uIU/mL} (Abnormal) Range: 0.450-4.500 28-Aud-619579:52 CALCIFEDIOL (40764) Comments: PATIENT NOT FASTINGPERFORMED BY: [facility] BiolActisCorewell Health [facility] Hospital6370 [facility] [id number] Vitamin D, 25-Hydroxy 20.8 ng/mL (Abnormal) Range: 30.0-100.0 Comments: Vitamin D deficiency has been defined by the [place] of[place]icine and an Endocrine Society practice guideline as alevel of serum 25-OH vitamin D less than 20 ng/mL (1,2).The Endocrine Society went on to further define vitamin Dinsufficiency as a level between 21 and 29 ng/mL (2).1. IOM ([place] of [place]). 2010. Dietary reference intakes for calcium and D. [place]: The National Academies Press.2. Ham MF, Alvino ALCALA, Ileana AYALA, et al. Evaluation, treatment, and prevention of vitamin D deficiency: an Endocrine Society clinical practice guideline. JCEM. 2010; 96(7):1911-30. 26-Dks-767601:52 MICROALBUMIN: CREATININE RATIO Comments: PATIENT NOT FASTINGPERFORMED BY: [facility] Pfmoha0410 [facility] [id number] (38483) AND (78922) Alb/Creat Ratio <22.6 {mg/g_creat} (Normal) Range: 0.0-30.0 Albumin, Urine <3.0 ug/mL (Normal) Creatinine, Urine 13.3 mg/dL (Normal) :52 METABOLIC PANEL, COMPREHENSIVE Comments: PATIENT NOT FASTINGPERFORMED BY: [facility] Dqfupm4100 [facility] [id number] (15037) ALT (SGPT) 12 [iU]/L (Normal) Range: 0-32 [...] 8-27 Glucose 86 mg/dL (Normal) Range: 65-99 69-Gye-969813:52 CBC W/AUTO DIFF WBC (72150) Comments: PATIENT NOT FASTINGPERFORMED BY: [facility] Sfyggf2706 [facility] [id number] Immature Grans (Abs) 0.0 {x10E3/uL} (Normal) Range: [...] 4.9 {x10E3/uL} (Normal) Range: 3.4-10.8 :52 TSH (44900) Comments: PATIENT NOT FASTINGPERFORMED BY: [facility]6370 [facility] [id number] TSH 0.032 {uIU/mL} (Abnormal) Range: 0.450-4.500 :52 T4, FREE (THYROXINE) (27835) Comments: PATIENT NOT FASTINGPERFORMED BY: [address] [id number] T4,Free(Direct) 2.26 ng/dL (Abnormal) Range: 0.82-1.77 :52 T3, FREE (TRIDOTHYRONINE) (26405) Comments: PATIENT NOT FASTINGPERFORMED BY: [facility]6370 [facility] [id number] Triiodothyronine,Free,Serum 3.6 pg/mL (Normal) Range: 2.0-4.4 71-Niw-573614:50 Urinalysis, Complete Comments: Order Date: 09/08/17How was Urine Obtained? ASSISTANT TODDLER TEACHER TO [facility] [address] [place] [place], [address] MUCUS, URINE 0 SEEN {/hpf} [...] (Normal) CLARITY Clear (Normal) COLOR Straw (Normal) 40-Ecz-330936:20 CBC W/Diff, Automated Comments: [facility] [address] [place], [place], [address] PATH REV October (Normal) Absolute Lymph 0.49 [...] 4.2-5.4 WBC 2.9 K/mm3 (Abnormal) Range: 4.4-11.0 46-Igg-231206:20 Comprehensive Metabolic Profil Comments: 'TROP' Serial specimen #1, #2, #3, or #4: 1[facility] [address] [place], [place], [address] GAP 5 (Normal) Range: 5-15 CO2 31.0 mmol/L (Normal) Range: 21.0-32.0 CL 102 mmol/L (Normal) Range: 98-107 K 3.6 mmol/L (Normal) Range: 3.5-5.1 NA 138 mmol/L (Normal) Range: 136-145 T BILI 0.40 mg/dL (Normal) Range: 0.20-1.00 ALT 88 U/L (Abnormal) Range: 13-56 Comments: Please note revised ALT reference range eiyocwpcm80/28/2018. ALK P 95 U/L (Normal) Range: 45-117 [...] A.D.A. criteria.Please note revised GLUCOSE reference range ctcujxgpo09/02/2018. 49-Bmm-199524:20 Lipase Comments: 'TROP' Serial specimen #1, #2, #3, or #4: [address] [place] [address] [address] [place], [id number] LIPASE 389 U/L (Normal) Range: 73-393 37-Qpq-807995:20 Troponin-I Comments: 'TROP' Serial specimen #1, #2, #3, or #4: [address] [place] [address] [place], [address] TROPONIN-I < 0.02 ng/mL (Normal) Comments: TROPONIN-I EXPECTED VALUES <0.05 NEGATIVE 0.06 - 0.59 AT RISK OF [place] > OR = 0.60 SUGGEST [place] 51-Wql-17672:50 Basic Metabolic Profile (BMP) Comments: [facility] [address] [place], [address] GAP 9 (Normal) Range: 5-15 CO2 24.0 [...] 7-18 GLU 100 mg/dL (Normal) Range: 70-110 19-Lja-04746:50 CBC W/Diff, Automated Comments: [facility] [address] [place], [place], [address] SMEAR COMMENT SCANNED (Normal) Absolute Lymph 0.40 [...] -Jun-2017 BREAST MASTECTOMY (CHOOSE See Note Comments: [facility] [address] [place], [place], [address] 7:15 SIDE (Normal) Comments: Patient: ANNA BARRERA : 1940 (77/F) Acct Num: [id number] Phys: Shaina ESTEBAN,Josh Unit Num: [id number] Loc: [facility] Specimen: [id number] Received: 06/22/17936 Spec [...] node measures 3.5 cm in greatest dimension. Roadmaster sections are subm itted as follows: 1 [...] superior, inferior and posteri or margin, 15-17 chemical sales representative sections from the other areas, 18 multiple lymph nodes, 19-21 each cassette containing one bisected lymph node, 22 two lymph nodes, 23 AND 24 one lymph node, 2 5 AND 26 one lymph node. / SJ:rg 06/23/17 TC:0 CPT: 36053 HEADER OPERATION: Left modified radical mastectomy PRE-OP [...] previously performed on section of tumo r ([id number] / AU31-122). 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 PATHOLOGIC STAGE: p T1a(y) pN0 Mx The above summary is in compliance with [employer] of [place] Pathology (CAP) Cancer Protocols Checklist and [place] Joint Committee on Cancer (AJCC), Staging Manual, 7th Ed. SJ:blanco 06/26/17 Signed Young Malcolm 06/26/17 <signature on file> 22-Jun-2017 IMMUNOHISTOCHEMISTRY See Note Comments: [facility] [address] [place], [place], [address] 0:00 (Normal) Comments: Patient: ANNA BARRERA : 1940 (77/F) Acct Num: [id number] Phys: Shaina ESTEBAN,Josh Unit Num: [id number] Loc: [facility] Specimen: [id number] Received: 06/26/17 - 1201 Spec Type: IMMUNO TISSUES TISSUES: Left breast, NOS SPECIMEN INFORMATION: Tissue Source: Left breast and axillary contents Clinical Info: Left breast cancer Specimen Number: [id number] #6 AND 24 CPT code: 98882, 68074 x3 METHODOLOGY: Deparaffinized sections of prefer/formalin-fixed tissue [...] developed and their performance characteristics determined by [facility]. They may not have been [...] the above diagnosis. IDC:AM PHYSICIAN AND INSTITUTION [address] [address] Signed Young Malcolm 06/27/17 <signature on file> 71-Anb-87828:57 Basic Metabolic Profile (BMP) Comments: [facility] [address] [place] [address], [id number] GAP 6 (Normal) Range: 5-15 CO2 31.0 [...] :57 CBC-Complete Blood Cnt No Diff Comments: [facility] [address] [place], [place], [phone] MPV 9.5 fL (Normal) Range: 6.2-12.0 PLT [...] 4.4-11.0 :57 Thyroid Stim Hormone (TSH) Comments: [facility] [address] [place], [address] TSH 0.26 {uIU/mL} (Abnormal) Range: 0.358-3.74 06-Kwt-737996:08 Basic Metabolic Profile (BMP) Comments: [facility] [address] [place], [place], [address] GAP 7 (Normal) Range: 5-15 CO2 27.0 [...] 7-18 GLU 108 mg/dL (Normal) Range: 70-110 93-Gyo-612560:30 Culture, Sputum Comments: [facility] [address] [facility] [place], [place], [address] CUSP See Note (Normal) Comments: Gram StainAcceptable Specimen? Yes (<25 Epithelial cells per/lpf) Gram Stain 1+ White Blood Cells No Epithelial cells 2+ Gram positive cocci in clusters Resp. CultureMixed normal respirat ory anita. No Haemophilus, Streptococcus pneumoniae, beta-hemolytic Streptococcus or Staphylococcus aureus isolated. ORGANISM 1: YeastAmount Growth Rare 93-Wnd-662900:00 Culture, Sputum Comments: [facility] [address] [facility] [address] [place], [place], [address] CUSP See Note Comments: Gram StainAcceptable Specimen? [...] <=20 S(NF) indicates non-formulary veena g at [facility]. Approval by Infectious Disease Specialist required before non-formulary drugs may be ordered and/or dispensed. BREAST BIOPSY (CHOOSE SITE) See Note Comments: [facility] [address] [place], [address] 716:06 (Normal) Comments: Patient: ANNA BARRERA : 1940 (76/F) Acct Num: [id number] Phys: Andrew ESTEBAN,Ceferino Unit Num: [id number] Loc: [facility] Specimen: [id number] Received: 01/18/17 - 1024 Spe c Type: BREAST BX TISSUES TISSUES: COMMENT Immunohistochemistry ([id number]) supports the above diagnosis. 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 Case is reviewed in consultation with Dr. Ibarra of [place]. The complete consultative report is viewable in [...] intwo cassettes. / AM:blanco 01/18/17 TC:0 CPT: 93125 HEADER OPERATION: Left breast core biopsy PRE-OP DIAGNOSIS: Breast cancer TISSUE SUBMITTED: Left breast core biopsy ISCHEMIC TIME: 18 minutes FIXATION TIME: 17 hours MICROSCOPIC DESCRIPTION Sli diana are reviewed. MICROSCOPIC DIAGNOSIS Left breast, core biopsy: Poorly differentiated ductal carcinoma. AM:blanco 01/19/17 Signed Deo Garza 01/30/17 <signature on file> IMMUNOHISTOCHEMISTRY See Note Comments: [facility] [address] [place], [address] 70:00 (Normal) Comments: Patient: ANNA BARRERA : 1940 (76/F) Acct Num: [id number] Phys: Ceferino Morales MD Unit Num: [id number] Loc: [facility] Specimen: [id number] Received: 01/19/171030 Spe c Type: IMMUNO TISSUES TISSUES: SPECIMEN INFORMATION: Tissue Source: Left breast core biopsy Clinical Info: Breast cancer Specimen Number: [id number] #1 CPT code: 21871, 24758 x22, 33873 x3 METHODOLOGY: Deparaffinized sections of prefer/formalin- fixed [...] ER (clone 6F11) 38%, weak to moderate FL (clone 16/1E2) 0% Her-2Neu (clone CB11) 0 The prognostic test for HER2 is performed on formalin-fixed paraffin embedded tissue. A 3+ (positive) staining pattern is defined as intense, homogeneous, complete, circumferential membran ous staining in >10% of contiguous tumor cells. A similar weak (2+) staining pattern is interpreted as equivocal. JENNA follow-up testing is recommended for all equivocal cases. Positivity/negativity for ER/FL is reported if > or < 1% of the tumor cells are immuno- reactive, respectively. The ASCO/CAP criteria is used for scoring. Reference: Journal of Clinical Oncology, 2013; 31:0408-9796 AN D 2010; 16:5507-5609. Duration of fixation: 17 Hrs; Sample Adequate: Yes. These assays have not been validated on decalcified tissues. Results should beinterpreted with caution given the likelihoo d of false negativity on decalcifiedspecimens. These tests were developed and their performance characteristics determined by [facility]. They may not have been [...] reviewed in consultation with Dr. Ibarra of [place]. Complete consultative report is viewable in patient's EMR Case has been reviewed in consultation with Dr. Malcolm who concurs with the abovediagnosis. IDC: PHYSICIAN AND INSTITUTION [address] [address] Signed Deo [facility] 01/30/17 <signature on file> 55-Pxk-53459:04 Basic Metabolic Profile (BMP) Comments: [facility] [address] [place], [address] GAP 6 (Normal) Range: 5-15 CO2 30.0 [...] <126 mg/dLsuggests IMPAIRED HOMEOSTASIS per A.D.A. criteria. 56-Nup-41937:04 CBC W/Diff, Automated Comments: [facility] [address] [place], [address] Absolute Lymph 1.46 {X10_3/ul} (Normal) Range: 0.83-4.51 [...] Range: 4.4-11.0 :04 Partial Thromboplast Time Comments: [facility] [address] [place], [place], [phone] PTT 26.4 s (Normal) Range: 24.1-36.2 :04 Prothrombin Time w/INR Comments: [facility] [address] [place], [place], [address] INR 1.0 (Normal) PROTIME 12.7 s (Normal) Range: 11.7-14.9 :05 CBC W/Diff, Automated Comments: [facility] [address] [place], [place], [address] Absolute Lymph 2.04 {X10_3/ul} (Normal) Range: 0.83-4.51 [...] Range: 4.4-11.0 :05 Comprehensive Metabolic Profil Comments: [facility] [address] [place], [address] GAP 7 (Normal) Range: 5-15 CO2 30.0 [...] (Normal) Range: 70-110 :05 Lipid Profile Comments: [facility] [address] [place], [place], [address] VLDL 10 mg/dL (Normal) Range: 5-40 LDL [...] High Risk :05 Microalb:Creat Ratio,Random UR Comments: [facility] [address] [place], [place], [address] MALB:CREAT 8.6 {mg/g_CRE} (Normal) MICROALBUMIN,UR 5.8 mg/L (Normal) UR CREAT 67.00 mg/dL (Normal) :05 Thyroid Stim Hormone (TSH) Comments: [facility] [address] [place], [place], [address] TSH 0.65 {uIU/mL} (Normal) Range: 0.358-3.74 :05 Urinalysis, Routine (Dipstick) Comments: How was Urine Obtained? [facility] [address] [place], [address] LEUK ESTERASE 100 /ul (Abnormal) OCCULT BLOOD-UR 25 /ul (Abnormal) NITRITE UR Negative (Normal) UROBILI Normal mg/dL (Normal) PROT DIPSTX Negative mg/dL (Normal) pH UR 6.5 (Normal) Range: 5.0 - 8.0 SP.GR. DIPSTX 1.010 (Normal) Range: 1.002-1.030 KETONE UR Negative mg/dL (Normal) BILIRUBIN URINE Negative mg/dL (Normal) GLUCOSE, UR Normal mg/dL (Normal) CLARITY Clear (Normal) COLOR Yellow (Normal) 79-Hwt-876015:08 TSH (27892) Comments: PATIENT NOT FASTINGPERFORMED BY: [facility] Vpzcre1092 [facility] [id number] Information: [id number] TSH 1.080 {uIU/mL} (Normal) Range: 0.450-4.500 21-Nov-20146:06 CBC W/Diff, Automated Comments: Test performed at:[facility] [address] [place], [place] [address] Absolute Lymph 2.22 {X10_3/ul} (Normal) Range: 0.83-4.51 [...] :06 Comprehensive Metabolic Profil Comments: Test performed at:[facility] [address] [place], [place] [address] GAP 4 (Abnormal) Range: 5-15 CO2 31.0 [...] 70-110 :06 Lipid Profile Comments: Test performed at:[facility] [address] [facility] [address] [place], [place] [address] VLDL 11 mg/dL (Normal) Range: 5-40 LDL [...] :06 Microalb:Creat Ratio,Random UR Comments: Test performed at:[facility] [address] [place] [address] MALB:CREAT 21.7 {mg/g_CRE} (Normal) MICROALBUMIN,UR 7.8 mg/L (Normal) UR CREAT 35.8 mg/dL (Normal) :06 Thyroid Stim Hormone (TSH) Comments: Test performed at:[facility] [address] [place] [address] TSH 0.46 {uIU/mL} (Normal) Range: 0.358-3.74 :06 Urinalysis, Routine (Dipstick) Comments: How was Urine Obtained? CLEAN CATCHTest performed at:[facility] [address] [place] [address] ; will review at 11/26 [...] :06 Vitamin D,25 Hydroxy Comments: Test performed at:[facility] [address] [place], [place] [address] Vitamin D 25-OH 23.4 ng/mL (Normal) Comments: Vitamin D 25(OH) Status Range Deficiency <20 ng/mL (50nmol/L) Insuffciency 20 - 30 ng/mL (50 - 75 nmol/L) Sufficiency 30 - 100 ng/mL (75 - 250 nmol/L) Toxicity >100 ng/mL (>250 nmol/L) 17-Sep-20139:09 TSH (13853) Comments: PATIENT NOT FASTINGPERFORMED BY: [place] 4622770 [facility] [id number] Information: [id number], [id number] TSH 1.860 {uIU/mL} (Normal) Range: 0.450-4.500 12-Eni-304213:27 TSH (64422) Comments: PATIENT NOT FASTINGPERFORMED BY: [facility]6370 [facility] [id number] Information: [id number] TSH 1.760 {uIU/mL} (Normal) Range: 0.450-4.500 :05 [...] D deficiency has been defined by the [place] of[place]icine and an Endocrine Society practice guideline as alevel of serum 25-OH vitamin D less than 20 ng/mL (1,2).The Endocrine Society went on to further define vitamin Dinsufficiency as a level between 21 and 29 ng/mL (2).1. IOM ([place] of [place]). 2010. Dietary reference intakes for calcium and D. [place]: The National Academies Press.2. Ham MF, Alvino [place], Ileana AYALA, et al. Evaluation, treatment, and prevention of vitamin D deficiency: an Endocrine Society clinical practice guideline. JCEM. 2010; 96(7): 1911-30.Performed at: - [facility] [id number] Director: Stephanie Young MD, Phone: [phone] 25-Feb-20119:43 TSH (55986) Comments: PATIENT NOT FASTINGPERFORMED BY: [facility] [id number] Information: [id number] TSH 2.940 {uIU/mL} (Normal) Range: 0.450-4.500 :43 CALCIFIDIOL (20159) VIT D 25 Comments: PATIENT NOT FASTINGPERFORMED BY: JOSE DAVID [facility] Nzqhsr8895 [address] RoadDublin [place] [id number] Vitamin D, 25-Hydroxy 24.5 ng/mL (Abnormal) Range: 32.0-100.0 Comments: Recent studies consider the lower limit of 32.0 ng/mL to be athreshold for optimal health.Juarez BW. J Nutr. 2004;135(2):317-22. 77-Oon-043005:08 PARATHORMONE (86864) Comments: PATIENT NOT FASTINGPERFORMED BY: CB [facility] Ibdlsv3840 [address]a RoadDublin [place] [id number] Information: [id number],[id number] PTH, Intact 47 pg/mL (Normal) Range: 15-65 :06 Microscopic Examination Comments: PATIENT NOT FASTINGPERFORMED BY: CB [facility] Ktjhza1966 [address] RoadDublin [place] [id number] Bacteria Few (Normal) Mucus Threads Present (Normal) Epithelial Cells (non renal) None seen {/hpf} (Normal) Range: 0 - 10 RBC None seen {/hpf} (Normal) Range: 0 - 3 WBC 0-5 {/hpf} (Normal) Range: 0 - 5 :06 Vitamin D Hydroxy (34155) Comments: PATIENT NOT FASTINGPERFORMED BY: CB [facility] Wkxdaz4406 [address] RoadDublin [place] [id number] Vitamin D, 25-Hydroxy 27.0 ng/mL (Abnormal) Range: 32.0-100.0 Comments: Recent studies consider the lower limit of 32.0 ng/mL to be athreshold for optimal health.Juarez BW. J Nutr. 2004;135(2):317-22. :06 TSH (47003) Comments: PATIENT NOT FASTINGPERFORMED BY: CB [facility] Mzykrw3367 [address] RoadDublin [place] [id number] TSH 4.620 {uIU/mL} (Abnormal) Range: 0.450-4.500 :06 URINALYSIS, W/ MICRO (19972) Comments: PATIENT NOT FASTINGPERFORMED BY: BerGenBioSaint Peter's University HospitalInvjyt0516 [facility] [id number] Microscopic Examination MICRON (Normal) Comments: Microscopic follows if indicated. Microscopic Examination See below: (Normal) Nitrite, Urine Negative (Normal) Bilirubin Negative (Normal) Ketones Negative (Normal) Occult Blood Negative (Normal) Urobilinogen,Semi-Qn 0.2 mg/dL (Normal) Range: 0.0-1.9 Glucose Negative (Normal) Protein Negative (Normal) Appearance Clear (Normal) Urine-Color Yellow (Normal) WBC Esterase Negative (Normal) pH 6.5 (Normal) Range: 5.0-7.5 Specific [place] 1.007 (Normal) Range: 1.005-1.030 :06 MICROALBUMIN: CREATININE RATIO Comments: PATIENT NOT FASTINGPERFORMED BY: [facility] BiolActisCore[facility]6370 [facility] [id number] (23907) AND (40840) Microalb/Creat Ratio 13.5 {mg/g_creat} (Normal) Range: 0.0-30.0 Creatinine, Urine 19.3 mg/dL (Normal) Range: 15.0-278.0 Microalbumin, Urine 2.6 ug/mL (Normal) Range: 0.0-17.0 :06 METABOLIC PANEL, COMPREHENSIVE Comments: PATIENT NOT FASTINGPERFORMED BY: [facility]6370 [facility] [id number] (53796) Alkaline Phosphatase, S 81 [iU]/L (Normal) Range: [...] MANUAL DIFF Comments: PATIENT NOT FASTINGPERFORMED BY: [facility]CoSaint Peter's University HospitalAtzidc8397 [facility] [id number] Information: [id number] (18124) Immature Grans (Abs) 0.0 {x10E3/uL} (Normal) Range: [...] CHOL 191 mg/dL (Normal) Comments: <200 mg/dL Mtoazmano518-834 mg/dL Borderline>240 mg/dL High Risk HDL 57 [...] {uIU/mL} (Normal) Range: 0.358-3.74 :05 VIT D,25 27046 29.2 ng/mL (Abnormal) Range: 32.0-100.0 Comments: Recent studies consider the lower limit of 32.0 ng/mL to daren threshold for optimal health.Larry BARRERA. J Nutr. 2004;135(2):317-22.Performed at: [facility] - [facility] [id number] Director: Caprice Woods MD 53-Mri-49461:58 URINE VENICE CULTURE-DESMOND COL Comments: PATIENT NOT FASTINGClinical Information: SRC:UR ADD [id number] PERFORMED BY: [employer] [facility] [employer] [id number] COUNT (97316) Result 1 BETAGB (Normal) Comments: Beta hemolytic [...] Final report (Normal) Culture,Comprehensive :59 Urinalysis, Office (33437) UA - BILIRUBIN Negative (Normal) UA - [...] TIMED TSH 3.448 {uIU/mL} Comments: PERFORMED BY: [facility]6370 [facility] [id number] 5:11 (Normal) Range: 0.450-4.500 TSH 4.26 {uIU/mL} [...] breast cancer Metastatic breast cancer : Reviewed [employer] Letter Indication: Metastatic breast cancer Benign essential hypertension : Continue Current Prescription(s) Indication: Benign essential hypertension Hypercholesterolemia : Cholesterol mgmt Indication: Hypercholesterolemia Benign essential hypertension : HTN/CAD Red Flags Indication: Benign essential hypertension Metastatic breast cancer : Reviewed Lab Indication: Metastatic breast cancer Metastatic breast cancer : Reviewed Diagnostic Tests Indication: Metastatic breast cancer Metastatic breast cancer : Reviewed [employer] Letter Indication: Metastatic breast cancer Non-smoker : [...] of right ankle, initial encounter : Reviewed [employer] Letter Indication: Sprain of right ankle, initial encounter Metastatic breast cancer : Reviewed [employer] Letter Indication: Metastatic breast cancer Benign essential [...] Osteoporosis Planned Observations TSH (THYROID STIMULATING HORMONE) (94108)Indication: Hypothyroidism, unspecified On: 07-Cdx-632612:56 Request TSH (THYROID STIMULATING HORMONE) (74153)Indication: Hypothyroidism, unspecified On: 04-Ezq-116837:36 Request T4, FREE (THYROXINE) (67157)Indication: Hypothyroidism, unspecified On: 24-Ojp-609778:33 Request T3, FREE (TRIDOTHYRONINE) (84363)Indication: Hypothyroidism, unspecified On: 05-Prv-940640:33 Request CALCIFIDIOL (93485) VIT D 25Indication: Vitamin D deficiency, unspecified On: :47 Request TSH (37007)Indication: Hypothyroidism, unspecified On: :46 Request URINALYSIS, W/ MICRO (55163)Indication: Benign essential hypertension On: :46 Request MICROALBUMIN: CREATININE RATIO (89395) AND (37743)Indication: Benign essential hypertension On: :46 Request METABOLIC PANEL, COMPREHENSIVE (83161)Indication: Benign essential hypertension On: :46 Request LIPID PANEL (82399)Indication: Hypercholesterolemia On: :46 Request CBC W/AUTO DIFF WBC (83868)Indication: Benign essential hypertension On: :46 Request URINE VENICE CULTURE-DESMOND COL COUNT ([id number])Indication: UTI symptoms On: [id number] Request LIPID PANEL ([id number])Indication: Hypercholesterolemia On: :55 Request Comments: November 2016 MICROALBUMIN: CREATININE RATIO ([id number]) AND ([id number])Indication: Benign essential hypertension On: :54 Request Comments: November 2016 URINALYSIS ([id number])Indication: Benign essential hypertension On: :54 Request Comments: November 2016 CBC, Platelets & Auto Diff ([id number])Indication: Benign essential hypertension On: :54 Request Comments: November 2016 Metabolic Panel, Comprehensive ([id number])Indication: Benign essential hypertension On: :54 Request Comments: November 2016 TSH ([id number])Indication: Hypothyroidism, unspecified On: :53 Request Comments: due in November 2016 Vitamin D Hydroxy ([id number])Indication: Vitamin D deficiency, unspecified On: 56-Hvl-003659:01 Request URINALYSIS, W/ MICRO ([id number])Indication: Benign essential hypertension On: 14-Rfe-371387:00 Request MICROALBUMIN: CREATININE RATIO ([id number]) AND ([id number])Indication: Benign essential hypertension On: 54-Qhj-023757:00 Request METABOLIC PANEL, COMPREHENSIVE ([id number])Indication: Benign essential hypertension On: 57-Tud-266230:00 Request LIPID PANEL ([id number])Indication: Hypercholesterolemia On: 89-Mcz-754852:00 Request CBC WITH MANUAL DIFF ([id number])Indication: Benign essential hypertension On: 81-Xbf-192771:00 Request TSH ([id number])Indication: Hypothyroidism, unspecified On: 81-Bxk-629555:00 Request Vitamin D Hydroxy ([id number])Indication: Osteoporosis On: :44 Request URINALYSIS, W/ MICRO ([id number])Indication: Benign essential hypertension On: :41 Request MICROALBUMIN: CREATININE RATIO ([id number]) AND ([id number])Indication: Benign essential hypertension On: :41 Request METABOLIC PANEL, COMPREHENSIVE ([id number])Indication: Benign essential hypertension On: :41 Request LIPID PANEL ([id number])Indication: Benign essential hypertension On: :41 Request CBC WITH MANUAL DIFF ([id number])Indication: Benign essential hypertension On: :41 Request TSH ([id number])Indication: Hypothyroidism, unspecified On: 31-Qiz-505190:40 Request TSH ([id number])Indication: Hypothyroidism, unspecified On: 81-Uqy-763801:09 Request LIPID PANEL ([id number])Indication: Hypercholesterolemia On: :12 Request METABOLIC PANEL, COMPREHENSIVE ([id number])Indication: Hypercholesterolemia On: :12 Request TSH ([id number])Indication: Hypothyroidism, unspecified On: :12 Request Planned Encounters Medical; General Medical - On: 03-May-2018 7:45 [facility] Tayla Espinal DO, DO, Tayla Velez DO Planned Procedures ELECTROCARDIOGRAM, COMPLETE (ECG) On: 06-Dec-2017 Intent ([id number])By: Tayla Espinal DO Comments: nsr no acute chg DO, Tayla Espinal DO, Tayla PNEUM VAC ADLT/IMUMNOSPR, SBC/INTRM On: 24-Mar-2017 Intent ([id number])By: Tayla Espinal DO Comments: lot:[id number]:IM left deltoid dose:0.5ml given by:hayley Us LPN DO, Tayla Velez DO ELECTROCARDIOGRAM, COMPLETE (ECG) On: 04-Jan-2017 Intent ([id number])By: Tayla Espinal DO Comments: nsr no acute cgh DO, Tayla Espinal DO, Tayla PHYSICAL THERAPY EVALUATION ([id number])By: On: 11-May-2015 Intent Elizabeth Villanueva CNP Radiology - Knee - RightBy: Kay MUÑOZ, On: 11-May-2015 Intent Elizabeth Watts MAMMOGRAM, SCREENING, BOTH BREAST On: 22-Aug-2014 Intent ([id number])By: Tayla Espinal DO Comments: send results to Tayla Matthews DO, DO, Kathleen DEXA SCAN AXIAL SKELETON ([id number])By: On: 22-Aug-2014 Intent Tayla Espinal DO, DO, Kathleen Comments: send results to Tayla Rondon DO Eprescribed prescriptions ([id number])By: On: 13-Sep-2012 Intent Lilian Richardson LPN Inhaler Demonstration ([id number])By: Kay On: 04-Jul-2012 Intent Elizabeth MUÑOZ Inhaler Demonstration ([id number])By: [place] On: 04-Jul-2012 Intent WANDA Josefa Aerosol Treatment ([id number])By: Kay MUÑOZ, On: 04-Jul-2012 Intent Josefa Eprescribed prescriptions ([id number])By: On: 27-May-2011 Intent Kay MUÑOZ Josefa EKG ([id number])By: Tayla Espinal DO On: 23-Sep-2010 Intent Tayla Espinal DO, DO, Kathleen Comments: nsr no acute chg Eprescribed prescriptions ([id number])By: On: 23-Sep-2010 Intent Tayla Espinal DO, DO, Kathleen Fearon DO, Kathleen EKG ([id number])By: Tayla Espinal DO On: 01-Jun-2009 Intent Tayla Espinal DO, DO, Kathleen Comments: nsr no acute changes SPECIMEN HANDLING/TRANSPORT ([id number])By: On: 28-Nov-2008 Intent Keren Wilde LPN Radiology [...] Advance Directives Name Dates Details Immunization Registry [place] - Effective on 03/24/2017. Effective: 24-Mar-2017 Expiration [...]
--- OUTSIDE RECORDS SUMMARY | 2018-07-15 17:15 | XMS RPT_ITS | Continuity of Care Document ---
:1940 Author Organization [facility] Address [facility] [address] [place] [address] Phone Care Team Providers Name Role Phone Tayla Espinal DO Unavailable BRYANNA Sumner Unavailable Unavailable Shala Taylor Unavailable Unavailable SHANNON [...] q mo (250 MG/5ML) Active Levothyroxine Sodium 100 MCG Oral Tablet 1 (one) Tablet daily for 0 days Quantity: 30 {Tablet} Refills: 3 Ordered:18-May-2018 Justyna Head MD Start : 18-May-2018 Active Metoprolol Tartrate 50 MG Oral Tablet 1 (one) Tablet bid for 0 days Quantity: 180 {Tablet} Refills: 3 Ordered:28-Aug-2017 Kylie LINDER GayNery , Bertha Tayla Start : 28-Aug-2017 Active Omeprazole 20 MG [...] days Quantity: 28 {Tablet} Refills: 0 Ordered:04-Jul-2012 Kay MUÑZO Josefa Start : 04-Jul-2012 End : 18-Jul-2012 Inactive Cardizem CD 180 MG Oral Capsule Extended Release 24 Hour 1 Capsule ER 24HR qd for 0 days Quantity: 90 {Capsule} Refills: 0 Ordered:17-Aug-2016 Kay MUÑOZ Josefa Start : 17-Aug-2016 End : 17-Aug-2016 Inactive Clotrimazole 1 % External Cream 1 (one) Application Application tid for 30 days Quantity: 30 {Gram} Refills: 2 Ordered:06-Dec-2017 Lilian Richardson LPN Start : 30-Mar-2017 End : 06-Dec-2017 Inactive DRISDOL, [id number] (Oral Capsule) 1 Capsule 2 X WEEK [...] Visit Report Result: Comments: See Note; NOTES: [facility] [address] [place] [address] OFFICE VISIT Date of Service: 11/07/17 MR#: [id number] Acct: [id number] Name: ANNA PRICE Rep #: [id number] : 1940 Provider: Stacey Pizano PA-C Age/Sex: 77/F Location: [facility] Status: Signed Intake Intake Visit Reasons: pain at mastectomy site 2017 Chief Comp laint: Encephalopathy Web Site Manager Required: No Is patient in pain?: [...] was treated with Gamma Knife treatment at [facility]. Patient had a follow-up MRI of the brain a [facility] which demonstrated dramatic decrease in the [...] has not been able to go to [facility] last week. She is concerned she is [...] NSAIDs as needed - May go to [facility] and perform leg work outs. 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 [place] [address] OFFICE VISIT Date of Service: 10/31/17 MR#: [id number] Acct: [id number] Name: ANNA PRICE Rep #: [id number] : 1940 Provider: Stacey Pizano PA-C Age/Sex: 77/F Location[place] [facility] Status: Signed Intake Intake Visit Reasons: [...] was treated with Gamma Knife treatment at [facility]. Patient had a follow-up MRI of the brain at [facility] which demonstrated dramatic decrease in [...] Stacey Pizano PA-C> Date Stacey Pizano PA-C Cosigne r Signature: Date (if applicable) CC: 25-Oct-2017 OT D/C Summary Result: Comments: See Note; NOTES: [facility] Occupational Therapy [facility] [address] [place] [address]. [address] [place] [address] Fax REHABILITATION SERVICES DIS CHARGE SUMMARY MR#: [id number] Acct: [id number] Name: ANNA BARRERA Rep #: [id number] : 1940 77 From: Stephanie Schilling OTR/L, CHT Referring Dr.: Stacey Pizano PA-C Status: REG RCR Yolande l Date: Discharge Date: HP - OT D/C Summary It has been my pleasure to treat ANNA BARRERA under orders from Stacey Pizano, for the diagnosis of Masectomy for a total of 7 visit(s). Please see the following information for a summary of their discharge status. 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 right lat. pinch 8# righ t [...] please fell free to call me at [phone]. Thank you for the referral of this patient. Sincerely, STALIN Cunningham/Lu, KULWANTT <Electronically signed by Stephanie GANT/KULWANT LeighT> 10/25/17 1053 CC: Stacey bowie PA-C; Tayla Espinal DO MK Signed 16-Oct-2017 OT General Evaluation Result: Comments: See Note; NOTES: [facility] Occupational Therapy [address] [place], [place] [address] Fax REHABILITATION SERVICES INI TIAL EVALUATION MR#: [id number] Acct: [id number] Name: ANNA BARRERA Rep #: [id number] : 1940 77 From: Stephanie REYNOSO CHT Referring DrAlondra: Stacey Pizano PA-C Status: REG RCR In surance: KRISTEL Pike Date: MEDICARE A ONLY Patient's Visit Information ANNA BARRERA is a 77 year old F, referred to Occupational Therapy by Stacey Pizano, with a diagnosis of Masectomy. Josias e of Evaluation: 10/03/17 Occupational Therapist: Stephanie Schilling, OTR/L, CHT - Subjective Subjective: Pt states she [...] Left WNL - Strength Shoulder: R/L 4/5 Electrical Line Splicer: right 45# left 45# Lateral Pinch: right [...] to be FAXED BACK to us at [phone] for Medicare purposes. Please let me know [...] Summary (1) Result: Comments: See Note; NOTES: [facility] Physical Therapy [facility] [address] [place] [address] Fax REHABILITATION SERVICES GILDAENDER BENJAMIN SUMMARY MR#: [id number] Acct: [id number] Name: ANNA BARRERA Rep #: [id number] : 1940 77 From: Amelie Rodriguez DPT Referring Dr.: Stacey Pizano PA-C Status: REG RCR Insurance: RUTHE M MEDICARE A ONLY HP - PT D/C [...] Goal Met - Plan Plan: Discharge to [facility] through health [facility] wellness[facility] - D/C Information If there are questions or concerns regarding this patient's physical therapy, please feel free to call me at [phone]. Thank you for the referral of this patient. Sincerely, Amelie Rodriguez <Electronically signed by Amelie Rodriguez DPT> 10/10/17 1028 CC: Stacey Pizano PA-C; Tayla Espinal DO ELR Signed 05-Oct-2017 OT General Evaluation Result: Comments: See Note; NOTES: [facility] Occupational Therapy [facility]. [address] [place] [address] Fax REHABILITATION SERVICES INI TIAL EVALUATION MR#: [id number] Acct: [id number] Name: ANNA BARRERA Rep #: [id number] : 1940 77 From: Stephanie GANT/Lu, CHT Referring Dr.: Stacey Pizano PAuGyC Status: REG RCR In surance: KRISTEL Pike [...] Left WNL - Strength Shoulder: R/L 4/5 Electrical Line Splicer: right 45# left 45# Lateral Pinch: right [...] to be FAXED BACK to us at [phone] for Medicare purposes. Please let me know if there are questions or concerns regarding this plan of care. P fabian Signature: Date: <Electronically signed by Stephanie REYNOSO CHT> 10/05/17 0934 CC: Stacey Pizano PA-C; Tayla Espinal DO MK Signed For Medicare only, by signing this I certify the plan of care. Physicians Signature Date 08-Sep-2017 Emergency Department Summary Result: Comments: See Note; NOTES: [facility] Medical Records Department [address] [address] Emergency Department Summary 09/08/17 1630 MR#: [id number] Acct: [id number] Name: ANNA BARRERA Rep #: [id number] : 1940 77 From: Jose May MD PCP: Tayla Espinal DO Status: REG ER ADDENDUM by Srinivas Gabriel on 09/08/17 at 1756 Patient was endorsed to me by the [facility] physician with instructions to check on CT [...] 2. Delirium This note was generated with VOIQ dictation software. It may contain incorrect words, [...] or any unexpected problems, contact your Prima ry Care Provider. Call Doctors Registry ([phone]) or report to the closest Emergency Room. Call 911 if necessary. 09/08/17 1712 <Electronically signed by Jose May MD> Date ___ Jose May MD Cosigner Signature (If Indicated): Date CC: Tayla Espinal DO 08-Sep-2017 Emergency Department Summary Result: Comments: See Note; NOTES: [facility] Medical Records Department [address] [place] [address] Emergency Department Summary 09/08/17 1630 MR#: [id number] Acct: [id number] Name: ANNA BARRERA Rep #: [id number] : 1940 77 From: Jose May MD [...] 2. Delirium This note was generated with VOIQ dictation software. It may contain incorrect words, [...] lems, contact your Primary Care Provider. Call [facility] Registry ([phone]) or report to the closest Emergency Room. Call 911 if necessary. 09/08/17 9041 <Electronically signed by Jose iglesias MD> Date Jose May MD Cosigner Signature (If Indicated): Date CC: Taylajosiah Espinal 08-Sep-2017 Brain/Head without Contrast Result: Comments: See Note; NOTES: [facility] Imaging Services [address] [place] [address] Brain/Head without Contrast MR#: [id number] Acct: [id number] Name: ANNA BARRERA Rep #: [id number] : 1940 F 77 From: Nasrin Orta MD PCP: Tayla Espinal DO Status: REG ER Study: Brain/Head without Contrast Date of Exam: 09/08/17 Exam# [id number] Ordering Dr: Jose May STUDY: CT BRAIN [...] Orta MD at 17:11 EDT Tel Direct: [phone], Service support , CC: Jose May MD; Tayla Espinal DO Metallurgical Engineering Teacher: Signed 08-Sep-2017 Chest 1 View (Portable) Result: Comments: See Note; NOTES: [facility] Imaging Services [address] [place] [address] Chest 1 View (Portable) MR#: [id number] Acct: [id number] Name: ANNA BARRERA Rep #: [id number] : 1940 F 77 From: Nasrin Orta MD PCP: Tayla Espinal DO Status: REG ER Study: Chest 1 View (Portable) Date of Exam: 09/08/17 Exam# [id number] Ordering Dr: Jose May MD STUD Y: [...] Orta MD at 17:17 EDT Tel Direct: [phone], Service s upport , CC: Jose May MD; Tayla Espinal DO Metallurgical Engineering Teacher: Signed 08-Sep-2017 Abdomen/Pelvis W IV Cont ONLY Result: Comments: See Note; NOTES: [facility] Imaging Services [address] [place] [address] Abdomen/Pelvis W IV Cont ONLY MR#: [id number] Acct: [id number] Name: ANNA BARRERA ep #: [id number] : 1940 F 77 From: Terence Calero MD PCP: Tayla Espinal DO Status: REG ER Study: Abdomen/Pelvis W IV Cont ONLY Date of Exam: 09/08/17 Exam# [id number] Ordering Dr: Jose May MD STUDY: CT [...] CC: Jose May MD; Tayla Espinal DO Metallurgical Engineering Teacher: Signed 23-Aug-2017 Surgery Visit Report Result: Comments: See Note; NOTES: [facility] [address] [place] [address] OFFICE VISIT Date of Service: 08/23/17 MR#: [id number] Acct: [id number] Name: ANNA BETANCOURT Rep #: [id number] : 1940 Provider: Stacey Garcia Age/Sex: 77/F Location[place] [facility] Status: Signed Intake Intake Visit Reasons: F/U MASTECTOMY/CEBUL Web Site Manager Required: No Is patient in pain?: [...] was treated with Gamma Knife treatment at [facility] . She will have a follow up [...] W/WO Contrast Result: Comments: See Note; NOTES: [facility] Imaging Services [address] [place] [address] Brain W/WO Contrast MR#: [id number] Acct: [id number] Name: ANNA BARRERA Rep #: [id number] : 1940 F 77 From: Glenn Taylor DO PCP: Tayla Espinal DO Status: REG CLI Study: Brain W/WO Contrast Date of Exam: 07/31/17 Exam# [id number] Ordering Dr: Ky Burkett DO STUDY: MR [...] lateral ventricle and with a 3 mm qsfn-ca-xquoi shift of the septum pellucidum (coronal T2 [...] surrounding vasogenic edema produ cing a mild zzpa-dc-jfbxg midline shift and mild mass effect, 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 2. Mild chronic white matter ischemic changes of the supratentorial brain and thong. 3. 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 4. No acute or evolving ischemic process. Electronically Signed: Glenn Carrington krystianDO at 13:48 EST Tel , Service support , CC: Tayla Espinal DO; Ky Burkett DO Metallurgical Engineering Teacher: Signed 24-Jul-2017 Inital Evaluation (1) - PT Result: Comments: See Note; NOTES: [facility] Physical Therapy [facility] [address] [facility] [place] [address] Fax REHABILITATION SERVICES INITIAL EVALUATION MR#: [id number] Acct: [id number] Name: ANNA BARRERA Rep #: [id number] : 1940 77 From: Amelie Rodriguez DPT Referring Dr.: Stacey Pizano PA-C Status: REG R Insurance: ANTH EM MEDICARE A ONLY Patient's Visit Information ANNA BARRERA is a 77 year old F [facility] with a [facility] of Left Breast Cancer. Date of Evalua tion: 07/24/17 Physical Therapist: Amelie Rodriguez - Visit Plan Frequency: 2x /Week Duration: 6 Weeks Plan: Focus on LE and core s/s and functional mobility. - Subjective Subjective: January 10, 2017 foun d a tumor which started bleeding - went to ER- admitted for [address] Paredes and Dr. Merritt. Sent her to [place]- which she lived in until Monday. Chemo 8x- CT scans- mets on the right lowe r lobe of the lung- Chest wall, fascia, muscle of the chest. Will have another scan at [facility] next monday. Does not have to have [...] to be FAXED BACK to us at [phone] for Medicare purposes. Please let me know if ther e are questions or concerns regarding this plan of care. Physician Signature: Date: <Electronically signed by Amelie Rodriguez DPT&fani p;#62; 07/24/17 1027 CC: Stacey Pizano PA-C; Tayla Espinal DO ELR Signed For Medicare only, by signing this I certify the plan of care. _ Physicians Signature Date 15-Jul-2017 Discharge Instruction Result: Comments: See Note; NOTES: [facility] Medical Records Department [address] [place] [address] Discharge Instruction 07/15/17 1045 MR#: [id number] Acct: [id number] Name: ANNA PEREZ Rep #: [id number] : 1940 77 From: Tre Mcguire DO [...] your Primary Care Provider. Call Doctors Registry ([phone] ) or report to the closest Emergency Room. Call 911 if necessary. 07/15/17 1047 <Electronically signed by Tre Mcguire DO> Date Tre wahl DO Cosigner Signature (If Indicated): Date CC: Tayla Espinal DO 15-Jul-2017 Emergency Department Summary Result: Comments: See Note; NOTES: [facility] Medical Records Department [address] [place] [address] Emergency Department Summary 07/15/17 1042 MR#: [id number] Acct: [id number] Name: ANNA BARRERA Rep #: [id number] : 1940 77 From: Tre Mcguire DO PCP: Tayla Espinal DO Status: REG ER - ER Visit Summary Date of Service: 07/15/17 Chief Complaint: [Diarrhea] History of Present Illness: The patient is a 77 F [presents to the emergency department with symptoms of diarrhea that started this morning around 7 AM. Patient states she has had 3-4 watery stools. Patient is from [facility]. Patient denies any abdominal pain or blood in her stool. Patient has not been on antibiotics recently. She denies recent travel. Patient was concerned because sh niharika had breast cancer with left mastectomy and had chemotherapy 3 months ago. Patient has a history of hypothyroidism and history of atrial fibrillation however she is not currently on a blood thinner. Colt leong denies any fevers. She was told at the [facility] that her temperature was 99.2 and [...] Impression: [Diarrhea] This note was generated with VOIQ dictation software. It may contain incorrect wo [...] unexpected problems, contact your Primary Care Provider. [facility] Doctors Registry ([phone]) or report to the closest Emergency Room. Call 911 if necessary. 07/15/17 1045 <Electronically signed by Tre Mcguire DO> Date Tre Mcguire DO Cosigner Signature (If Indicated): Date CC: Tayla Espinal DO 13-Jul-2017 Surgery Visit Report Result: Comments: See Note; NOTES: [facility] [address] [place] [address] OFFICE VISIT Date of Service: 07/12/17 MR#: [id number] Acct: [id number] Name: ANNA BETANCOURT Rep #: [id number] : 1940 Provider: Stacey Garcia Age/Sex: 77/F Location: [facility] Status: Signed Intake Intake Visit Reasons: F/U MASTECTOMY/CEBUL Web Site Manager Required: No Is patient in pain?: [...] DIRECTED #4 ea 07/12/17 [Rx Confirmed 07/12/17] [facility] Medical History Left breast mass (Acute) Hypothyroidism [...] Patient returns for a follow-up from breast [facility] er. Patient is overall doing well. She [...] Visit Report Result: Comments: See Note; NOTES: [facility] [place] [address] [place] [address] OFFICE VISIT Date of Service: 06/27/17 MR#: [id number] Acct: [id number] Name: ANNA BETANCOURT Rep #: [id number] : 1940 Provider: Stacey Garcia Age/Sex: 77/F Location[place] [facility] Status: Signed Intake Intake Visit Reasons: F/U MASTECTOMY/CEBUL Chief Complaint: left mastectomy RC Web Site Manager Required: No Is patient in pain?: [...] mcg PO CHAVEZ 06/15/17 [History Confirmed 06/27/17] PFSH Me dical History Breast cancer (Acute) Left breast [...] Lead Electrocardiogram Result: Comments: See Note; NOTES: [facility] Cardiovascular Services [address] [place] [address] 12 Lead EKG 06/17/17 1008 MR#: [id number] Acct: [id number] Name: ANNA BARRERA Rep #: [id number] : 1940 76 From: Delvin Coleman MD Attending Dr: Josh Merritt MD Status: PRE SDC Ordering Dr: Josh Merritt MD Date: 06/17/17 [place] [facility] Sex: F C Admitted: Test Reason : P REOP Blood Pressure : / mmHG Vent. Rate : 075 BPM Atrial Rate : 075 BPM P-R Int : 168 ms QRS Dur : 096 ms QT Int : 386 ms P-R-T Axes : 041 -23 060 degrees QTc Int : 431 ms Normal sinus rhythm Bor derline ECG Confirmed by FANI ESTEBAN, DELVIN ([id number]), society editor DANIELLE STAHL ([id number]) on 06/21/2017 3:06:43 PM Referred By: TOBY Confirmed By:DELVIN COLEMAN MD 06/21/17 1506 Date Delvin Coleman MD CC: Tayla Espinal DO Signed 01-Jun-2017 Surgery Visit Report Result: Comments: See Note; NOTES: [facility] [address] [place] [address] OFFICE VISIT Date of Service: 05/30/17 MR#: [id number] Acct: [id number] Name: ANNA BETANCOURT Rep #: [id number] : 1940 Provider: Stacey Garcia Age/Sex: 76/F Location[place] [facility] Status: Signed Intake Vital Signs05/30/17 Height 5 ft 5 in 05/30/17 Weight: 145 lb Int grayson Visit Reasons: Update H AND P.el Web Site Manager Required: No Is patient in pain?: [...] (Acute) Family History (Reviewed 05/30/17 @ 10:32 b y Sharon Jaramillo) Father Diabetes Hypertension CVA (cerebral vascular [...] Patient's previous history per Dr. Merritt: Kari montgomeryi cated 76-year-old female. [facility] Ky Burkett for surgical treatment of her left breast cancer. She was hospitalized at the [facility] January 10, 2017 luis watts of uncontrolled bleeding from a large left [...] 1. Left breast mass N63.[address] Cebul will p phyllis to perform a left palliative mastectomy. Patient has had the opportunity to ask and have questions answered. Patient verbally understands the procedure and agrees to proceed. 06/01/17 1116 &# 60;Electronically signed by Stacey Pizano PA-C> Date Stacey Pizano PA-C Cosigner Signature: Date (if applicable) CC: 30-Mar-2017 Emergency Department Summary Result: Comments: See Note; NOTES: [facility] Medical Records Department [address] [place] [address] Emergency Department Summary 03/15/172011 MR#: [id number] Acct: [id number] Name: ANNA BARRERA Rep #: [id number] : 1940 76 From: Munir Kennedy MD PCP: Tayla Espinal DO Status: DEP ER - ER Visit Summary Date of Service: 03/15/17 Chief Complaint: [] Right ankle pain and passed out. 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 Patient states that she stepped off [...] problems, contact your Primary Care Provider. Call [facility] ors Registry ([phone]) or report to the closest Emergency Room. Call 911 if necessary. 03/30/17 0957 <Electronically signed by Munir Kennedy MD> Date Munir Morales Signature (If Indicated): Date CC: Tayla Espinal DO 17-Mar-2017 12 Lead Electrocardiogram Result: Comments: See Note; NOTES: [facility] Cardiovascular Services [address] [place] [address] 12 Lead EKG 03/15/171406 MR#: [id number] Acct: [id number] Name: ANNA BARRERA Rep #: [id number] : 1940 76 From: Delvin Coleman MD Attending Dr: Status: DEP ER Ordering Dr: Munir eKnnedy MD Date: 03/15/17 Location: ED Sex: F [...] By: DOUGIE Confirmed By:DELVIN COLEMAN MD 03/17/17 143 Date Delvin Coleman MD CC: Tayla Espinal DO Date Dictated: 03/15/171406 Date Transcribed: 03/15/171406 Metallurgical Engineering Teacher: Signed 15-Mar-2017 Emergency Department Summary Result: Comments: See Note; NOTES: [facility] Medical Records Department [address] [place] [address] Emergency Department Summary 03/15/17 1528 MR#: [id number] Acct: [id number] Name: ANNA BARRERA Rep #: [id number] : 1940 76 From: Munir Kennedy MD [...] problems, contact your Primary Care Provider. Call [facility] Registry ([phone]) or report to the closest Emergency Room. Call 911 if necessary. 03/15/17 1530 <Electronically signed by Munir Kennedy MD> Date Munir Kennedy MD Cosigner Signature (If Indicated): Date CC: Tayla Espinal DO 15-Mar-2017 Ankle min 3 Views Result: Comments: See Note; NOTES: [facility] Imaging Services [address] [place] [address] Ankle min 3 Views MR#: [id number] Acct: [id number] Name: ANNA BARRERA Rep #: [id number] : 1940 F 76 From: sAa Verma MD PCP: Tayla Espnial DO Status: REG ER Study: Ankle min 3 Views Date of Exam: 03/15/17 Exam# [id number] Ordering Dr: Munir Kennedy MD STUDY: X-RAY [...] Views IMPRESSION: Plantar spur. Soft tissue swellin gAlondra Electronically Signed: Asa Verma MD at 14:22 EDT Tel [phone], Service support , CC: Munir Kennedy MD; Tayla Espinal DO Metallurgical Engineering Teacher: Signed 06-Feb-2017 Emergency Department Summary Result: Comments: See Note; NOTES: [facility] Medical Records Department [address] [place] [address] Emergency Department Summary 02/06/17 1134 MR#: [id number] Acct: [id number] Name: ANNA BARRERA Rep #: [id number] : 1940 76 From: Srinivas Gabriel MD [...] by having bleeding on dressi ng changes. alf staff was concerned for the possibility of [...] dressing changes by the staff at her [facility] and requested referral to wound care. I [...] Additional Instructions: Fol low-up with wound care [phone] What to do if you have Problems For any increased pain, shortness of breath, bleeding, nausea or vomiting, chest pain, or any unexpected problems, contact your [facility] Care Provider. Call Doctors Registry ([phone]) or report to the closest Emergency Room. Call 911 if necessary. 02/06/17 8562 <Electronically signed by Srinivas Gabriel MD> Da te Srinivas Gabriel MD Cosigner Signature (If Indicated): Date CC: Tayla Espinal DO 10-Jan-2017 Chest WITH Contrast Result: Comments: See Note; NOTES: [facility] Imaging Services [address] [place] [address] Verdana 4d Chest WITH Contrast MR#: [id number] Acct: [id number] Name: ANNA BARRERA Rep #: [id number] : 1940 F 76 From: Asa Verma MD PCP: Tayla Espinal DO Status: REG ER Study: Chest WITH Contrast Date of Exam: 01/10/17 Exam# [id number] Ordering Dr: Nasrin Lizama STUDY: CT CHEST [...] Asa Verma MD at 10:40 EDT Tel [phone], Service support , CC: Nasrin Lizama MD; Tayla Espinal DO Metallurgical Engineering Teacher: Signed 03-Jul-2015 PT D/C Summary Result: Comments: See Note; NOTES: [facility] Physical Therapy [facility] [address] [place], [place] [address] Fax REHABILITATION RVICES DISCHARGE SUMMARY MR#: [id number] Acct: [id number] Name: ANNA BARRERA Rep #: [id number] : 1940 75 From: Amelie Rodriguez Referring DrAlondra: Elizabeth Villanueva Status: REG RCR Eval Date : Discharge Date: HP - PT D/C Summary It has been my pleasure to treat ANNA BARRERA under orders from Elizabeth Villanueva, for the diagnosis of Right Knee Pain for a total of 16 visit(s). Mariaelena watts see the following information for a summary [...] is planning on continuing with a personal consultant and dileep robledo. - Objective Objective/Function: Patient [...] feel free to call me a t [phone]. Thank you for the referral of this patient. Sincerely, Amelie Rodriguez <Electronically signed by Amelie Rodriguez > 07/03/15 1031 CC: Elizabeth Villanueva; Tayla Espinal DO ELR Signed 10-Jun-2015 Re-Evaluation - PT Result: Comments: See Note; NOTES: [facility] Physical Therapy [facility] [place] [address] Fax REEVALUATION / ME DICARE RECERTIFICATION Emery 4d PHYSICAL THERAPY MR#: [id number] Acct: [id number] Name: ANNA BARRERA Rep #: [id number] : 1940 74 From: Amelie Rodriguez Referring Dr.: Elizabeth Garnica tatus: REG RCR Insurance: ANTHEM Elizabeth Villanueva, It has been my pleasure to [...] do not hesitate to contact me at [phone] by phone or if you have questions or concerns regarding this new plan of care! Sincerely, Amelie Rodriguez <Electronically signed by Amelie Rodriguez > 06/10/15 1058 CC: Elizabeth Espinal DO ELR Signed For Medicare only, by signing this I certify the plan of care. Physicians Signature Date 19-May-2015 Inital Evaluation - PT Result: Comments: See Note; NOTES: [facility] Physical Therapy [facility] [address] [place] [address]. [address] [place], [place] [address] Fax REHABILITATION [facility] INITIAL EVALUATION MR#: [id number] Acct: [id number] Name: ANNA BARRERA Rep #: [id number] : 1940 74 From: Amelie Rodriguez Referring Dr.: Elizabeth Villanueva Status: REG RCR Insuranc e: [...] in the AM and meets with a weight training instructor 1x a week. - Objective Posture: [...] Fair - Anticipated Interventions Patient/Client Instruction: Educate patiniharika nt on: Benefits of Fitness Program For [...] to be FAXED BACK to us at [phone] for Medicare purposes. Please let me know if there are questions or conc erns regarding this plan of care. Physician Signature: Date: <Electronically signed by Amelie Rodriguez > 05/19/15 1445 CC: Elizabeth Villanueva; Tayla Espinal DO ELR Signed For Medicare only, by signing this I certify the plan of care. Physicians Signature Date 11-May-2015 Knee 4 or More Views Result: Comments: See Note; NOTES: [facility] Imaging Services [address] [place] [address] Verdana 4d Knee 4 or More Views MR#: [id number] Acct: [id number] Name: ANNA PRICE Rep #: [id number] : 1940 F 74 From: Afshin Gant DO PCP: Tayla Espinal DO Status: REG CLI Study: Knee 4 or More Views Date of Exam: 05/11/15 Exam# [id number] Ordering Dr: Elizabeth Richards STUDY: X-RAY - [...] Afshin Gant DO at 9:20 EST Tel [phone], Service support [phone], RAD/Knee 4 or More Views IMPRESSION: Degenerative arthrosis. Electro nically Signed: Afshin Gant DO at 9:20 EST Tel [phone], Service support [phone], CC: Elizabeth Villanueva; Tayla Espinal DO Metallurgical Engineering Teacher: Signed 30-Oct-2014 Bilat Scrn Digital AND CAD Result: Comments: See Note; NOTES: [facility] Imaging Services [address] [place] [address] Breast Imaging Report MR#: [id number] Acct: [id number] Name: ANNA BARRERA Re p #: [id number] : 1940 F 74 From: Afshin Gant DO PCP: Tayla Espinal DO Status: REG CLI Study: Bilat Scrn Digital AND CAD Date of Exam: 10/30/14 Exam# [id number] Ordering Dr: Douglas Espinal DO MAMMOGRAPHY - [...] Afshin Gant DO at 14:34 EDT Tel [phone], Service support [phone], CC: Tayla Espinal DO Metallurgical Engineering Teacher: Signed 30-Oct-2014 Dexa Bone Density Study (HP) Result: Comments: See Note; NOTES: [facility] Imaging Services [address] [place] [address] Bone Density Report MR#: [id number] Acct: [id number] Name: ANNA BARRERA Rep #: [id number] : 1940 F 74 From: Asa Verma MD PCP: Tayla Espinal DO Status: REG CLI Study: Dexa Bone Density Study (HP) Date of Exam: 10/30/14 Exam# [id number] Ordering Dr: Tayla Espinal DO STUDY: DUAL [...] Asa Verma MD at 8:23 EDT Tel [phone], Service support [phone], CC: Talya Espinal DO Metallurgical Engineering Teacher: Signed 12-Nov-2013 OT Discharge Summary Result: Comments: See Note; NOTES: [facility] Occupational Therapy [facility] [place] [phone] Fax REHABILITATION SERVIC ES DISCHARGE SUMMARY MR#: [id number] Acct: [id number] Name: ANNA BARRERA Rep #: [id number] : 1940 73 From: Stephanie Schilling Referring [...] discharged. Stephanie Schilling OTR/L T: NTS JOB: [id number] <Electronically signed by Stephanie Schilling > 11/12/13 [...] smoker Vital Signs Date Test Result Details :11 Temperature 97.8 f Comments: Method: Temporal Pulse [...] kg/m2 Body Surface Area Calculated 1.69 m2 8-Qmw-109409:00 Pulse 75 /min Comments: Pattern: Regular Respiration [...] kg/m2 Body Surface Area Calculated 1.75 m2 89-Mwp-676971:09 Pulse 76 /min Comments: Pattern: Regular Respiration [...] 0.00 cm Results Date Description Value Details 38-Kso-296495:26 TSH (THYROID STIMULATING Comments: PATIENT NOT FASTINGPERFORMED BY: [facility] Vdarov8473 [facility] [id number] HORMONE) (83247) TSH 0.076 {uIU/mL} (Abnormal) Range: 0.450-4.500 35-Jga-312915:31 T3, FREE (TRIDOTHYRONINE) (51604) Comments: PATIENT NOT FASTINGPERFORMED BY: TriptrottingSaint Barnabas Behavior[facility] CenterYbvloy1365 [facility] [id number] Triiodothyronine (T3), Free 3.1 pg/mL (Normal) Range: 2.0-4.4 97-Caw-723374:31 T4, FREE (THYROXINE) (64445) Comments: PATIENT NOT FASTINGPERFORMED BY: TriptrottingSaint Barnabas Behavioral Health CenterKfmooo2488 [facility] [id number] T4,Free(Direct) 2.14 ng/dL (Abnormal) Range: 0.82-1.77 46-Lrs-366739:31 TSH (THYROID STIMULATING Comments: PATIENT NOT FASTINGPERFORMED BY: [facility]6370 [facility] [id number] HORMONE) (55721) TSH 0.058 {uIU/mL} (Abnormal) Range: 0.450-4.500 :52 CALCIFEDIOL (16307) Comments: PATIENT NOT FASTINGPERFORMED BY: [facility]6370 [facility] [id number] Vitamin D, 25-Hydroxy 20.8 ng/mL (Abnormal) Range: 30.0-100.0 Comments: Vitamin D deficiency has been defined by the [place] ofMedicine and an Endocrine Society practice guideline as alevel of serum 25-OH vitamin D less than 20 ng/mL (1,2).The Endocrine Society went on to further define vitamin Dinsufficiency as a level between 21 and 29 ng/mL (2).1. IOM ([place] of Medicine). 2010. Dietary reference intakes for calcium and D. [place]: The National Academies Press.2. Ham MF, Alvino ALCALA, Ileana AYALA, et al. Evaluation, treatment, and prevention of vitamin D deficiency: an Endocrine Society clinical practice guideline. JCEM. 2010; 96(7):1911-30. 89-Tpv-080827:52 MICROALBUMIN: CREATININE RATIO Comments: PATIENT NOT FASTINGPERFORMED BY: [facility]6370 [facility] [id number] (07852) AND (20516) Alb/Creat Ratio <22.6 {mg/g_creat} (Normal) Range: 0.0-30.0 Albumin, Urine <3.0 ug/mL (Normal) Creatinine, Urine 13.3 mg/dL (Normal) :52 METABOLIC PANEL, COMPREHENSIVE Comments: PATIENT NOT FASTINGPERFORMED BY: [facility]6[address] [facility] [id number] (28444) ALT (SGPT) 12 [iU]/L (Normal) Range: 0-32 [...] 8-27 Glucose 86 mg/dL (Normal) Range: 65-99 89-Yng-305200:52 CBC W/AUTO DIFF WBC (19133) Comments: PATIENT NOT FASTINGPERFORMED BY: [facility] Sqhvub3836 [facility] [id number] Immature Grans (Abs) 0.0 {x10E3/uL} (Normal) Range: [...] 4.9 {x10E3/uL} (Normal) Range: 3.4-10.8 :52 TSH (45643) Comments: PATIENT NOT FASTINGPERFORMED BY: [facility]6370 [facility] [id number] TSH 0.032 {uIU/mL} (Abnormal) Range: 0.450-4.500 :52 T4, FREE (THYROXINE) (44318) Comments: PATIENT NOT FASTINGPERFORMED BY: [facility]6370 [facility] [id number] T4,Free(Direct) 2.26 ng/dL (Abnormal) Range: 0.82-1.77 :52 T3, FREE (TRIDOTHYRONINE) (10610) Comments: PATIENT NOT FASTINGPERFORMED BY: [facility]6370 [facility] [id number] Triiodothyronine,Free,Serum 3.6 pg/mL (Normal) Range: 2.0-4.4 39-Jue-723655:50 Urinalysis, Complete Comments: Order Date: 09/08/17How was Urine Obtained? [facility] [address] [place], [address] MUCUS, URINE 0 SEEN {/hpf} (Normal) BACTERIA [...] (Normal) CLARITY Clear (Normal) COLOR Straw (Normal) 26-Dvm-168323:20 CBC W/Diff, Automated Comments: [facility] [address] [place], [place], [phone] PATH REV October foll (Normal) Absolute Lymph 0.49 {X10_3/ul} (Abnormal) Range: [...] 4.2-5.4 WBC 2.9 K/mm3 (Abnormal) Range: 4.4-11.0 88-Jqu-994091:20 Comprehensive Metabolic Profil Comments: 'TROP' Serial specimen #1, #2, #3, or #4: 1[facility] [address] [place], [place], [address] GAP 5 (Normal) Range: 5-15 CO2 31.0 mmol/L (Normal) Range: 21.0-32.0 CL 102 mmol/L (Normal) Range: 98-107 K 3.6 mmol/L (Normal) Range: 3.5-5.1 NA 138 mmol/L (Normal) Range: 136-145 T BILI 0.40 mg/dL (Normal) Range: 0.20-1.00 ALT 88 U/L (Abnormal) Range: 13-56 Comments: Please note revised ALT reference range ywfqvvzuy84/28/2018. ALK P 95 U/L (Normal) Range: 45-117 [...] A.D.A. criteria.Please note revised GLUCOSE reference range jjotssiei54/02/2018. 69-Obe-849522:20 Lipase Comments: 'TROP' Serial specimen #1, #2, #3, or #4: [address] [place] [address] [place], [place], [address] LIPASE 389 U/L (Normal) Range: 73-393 07-Ifr-396338:20 Troponin-I Comments: 'TROP' Serial specimen #1, #2, #3, or #4: [address] [place] [address] [place], [place], [phone] TROPONIN-I < 0.02 ng/mL (Normal) Comments: TROPONIN-I EXPECTED VALUES <0.05 NEGATIVE 0.06 - 0.59 AT RISK OF WI > OR = 0.60 SUGGEST WI 00-Ohj-81268:50 Basic Metabolic Profile (BMP) Comments: [facility] [address] [place], [place], [address] GAP 9 (Normal) Range: 5-15 CO2 24.0 [...] 7-18 GLU 100 mg/dL (Normal) Range: 70-110 41-Vit-86600:50 CBC W/Diff, Automated Comments: [facility] [address] [place], [place], [phone] SMEAR COMMENT SCANNED (Normal) Absolute Lymph 0.40 [...] (Abnormal) WBC 5.2 K/mm3 Range: 4.4-11.0 (Normal) 22-Jun-2017 BREAST MASTECTOMY (CHOOSE See Note Comments: [facility] [address] [place], [place], [phone] 7:15 SIDE (Normal) Comments: Patient: ANNA BARRERA : 1940 (77/F) Acct Num: [id number] Phys: Shaina ESTEBAN,Josh Unit Num: [id number] Loc: [facility] Specimen: [id number] Received: 06/22/17936 [...] node measures 3.5 cm in greatest dimension. Glazing Machine Operator sections are subm itted as follows: 1 [...] and posteri or margin, 15-17 sales representative gas service sections from the other areas, 18 multiple lymph nodes, 19-21 each cassette containing one bisected lymph node, 22 two lymph nodes, 23 AND 24 one lymph node, 2 5 AND 26 one lymph node. / SJ:rg 06/23/17 TC:0 CPT: 67907 HEADER OPERATION: Left modified radical mastectomy PRE-OP [...] previously performed on section of tumo r ([id number] / HK12-548). 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 PATHOLOGIC STAGE: p T1a(y) pN0 Mx The above summary is in compliance with [employer] [place] Path[employer] (CAP) Cancer Protocols Checklist and [place] Joint Committee on Cancer (AJCC), Staging Manual, 7th Ed. SJ:blanco 06/26/17 Signed Young Malcolm 06/26/17 <signature on file> 22-Jun-2017 IMMUNOHISTOCHEMISTRY See Note Comments: [facility] [address] [place], [place], [phone] 0:00 (Normal) Comments: Patient: ANNA BARRERA : 1940 (77/F) Acct Num: [id number] Phys: Shaina ESTEBAN,Josh Unit Num: [id number] Loc: [facility] Specimen: [id number] Received: 06/26/17 - 1201 Spec Type: IMMUNO TISSUES TISSUES: Left breast, NOS SPECIMEN INFORMATION: Tissue Source: Left breast and axillary contents Clinical Info: Left breast cancer Specimen Number: [id number] #6 AND 24 CPT code: 09308, 45897 x3 METHODOLOGY: Deparaffinized sections of prefer/formalin-fixed tissue [...] developed and their performance characteristics determined by [facility]. They may not have been [...] the above diagnosis. IDC:AM PHYSICIAN AND INSTITUTION [address] [address] Signed Young Malcolm 06/27/17 <signature on file> 57-Mfd-44128:57 Basic Metabolic Profile (BMP) Comments: [facility] [address] [place] [address], [phone] GAP 6 (Normal) Range: 5-15 CO2 31.0 [...] :57 CBC-Complete Blood Cnt No Diff Comments: [facility] [address] [place], [place], [phone] MPV 9.5 fL (Normal) Range: 6.2-12.0 PLT [...] 4.4-11.0 :57 Thyroid Stim Hormone (TSH) Comments: [facility] [address] [place], [place], [address] TSH 0.26 {uIU/mL} (Abnormal) Range: 0.358-3.74 45-Ajv-741695:08 Basic Metabolic Profile (BMP) Comments: [facility] [address] [place], [place], [address] GAP 7 (Normal) Range: 5-15 CO2 27.0 [...] 7-18 GLU 108 mg/dL (Normal) Range: 70-110 14-Xgu-347104:30 Culture, Sputum Comments: [facility] [address] [place], [place], [phone] CUSP See Note (Normal) Comments: Gram StainAcceptable Specimen? Yes (<25 Epithelial cells per/lpf) Gram Stain 1+ White Blood Cells No Epithelial cells 2+ Gram positive cocci in clusters Resp. CultureMixed normal respirat ory anita. No Haemophilus, Streptococcus pneumoniae, beta-hemolytic Streptococcus or Staphylococcus aureus isolated. ORGANISM 1: YeastAmount Growth Rare 75-Csx-762905:00 Culture, Sputum Comments: [facility] [address] [place], [place], [phone] CUSP See Note Comments: Gram StainAcceptable Specimen? [...] <=20 S(NF) indicates non-formulary veena g at [facility]. Approval by Infectious Disease Specialist required before non-formulary drugs may be ordered and/or dispensed. BREAST BIOPSY (CHOOSE SITE) See Note Comments: [facility] [address] [place], [address] 716:06 (Normal) Comments: Patient: ANNA BARRERA : 1940 (76/F) Acct Num: [id number] Phys: Andrew ESTEBAN,Ceferino Unit Num: [id number] Loc: [facility] Specimen: [id number] Received: 01/18/17 - 1024 Spe c Type: BREAST BX TISSUES TISSUES: COMMENT Immunohistochemistry ([id number]) supports the above diagnosis. 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 Case is reviewed in consultation with Dr. Ibarra of [employer]. The complete consultative report is viewable in [...] intwo cassettes. / AM:blanco 01/18/17 TC:0 CPT: 82671 HEADER OPERATION: Left breast core biopsy PRE-OP DIAGNOSIS: Breast cancer TISSUE SUBMITTED: Left breast core biopsy ISCHEMIC TIME: 18 minutes FIXATION TIME: 17 hours MICROSCOPIC DESCRIPTION Sli diana are reviewed. MICROSCOPIC DIAGNOSIS Left breast, core biopsy: Poorly differentiated ductal carcinoma. AM:blanco 01/19/17 Signed Deo Kayla 01/30/17 <signature on file> IMMUNOHISTOCHEMISTRY See Note Comments: [facility] [address] [place], [address] 70:00 (Normal) Comments: Patient: ANNA BARRERA : 1940 (76/F) Acct Num: [id number] Phys: Ceferino Morales MD Unit Num: [id number] Loc: [facility] Specimen: [id number] Received: 01/19/17 - 1031 Spe c Type: IMMUNO TISSUES TISSUES: SPECIMEN INFORMATION: Tissue Source: Left breast core biopsy Clinical Info: Breast cancer Specimen Number: [id number] #1 CPT code: 51776, 91708 x22, 03344 x3 METHODOLOGY: Deparaffinized sections of prefer/formalin- fixed [...] ER (clone 6F11) 38%, weak to moderate KY (clone 16/1E2) 0% Her-2Neu (clone CB11) 0 The prognostic test for HER2 is performed on formalin-fixed paraffin embedded tissue. A 3+ (positive) staining pattern is defined as intense, homogeneous, complete, circumferential membran ous staining in >10% of contiguous tumor cells. A similar weak (2+) staining pattern is interpreted as equivocal. JENNA follow-up testing is recommended for all equivocal cases. Positivity/negativity for ER/KY is reported if > or < 1% of the tumor cells are immuno- reactive, respectively. The ASCO/CAP criteria is used for scoring. Reference: Journal of Clinical Oncology, 2013; 31:8238-9492 AN D 2010; 16:6949-1469. Duration of fixation: 17 Hrs; Sample Adequate: Yes. These assays have not been validated on decalcified tissues. Results should beinterpreted with caution given the likelihoo d of false negativity on decalcifiedspecimens. These tests were developed and their performance characteristics determined by [facility]. They may not have been [...] reviewed in consultation with Dr. Ibarra of [employer]. Complete consultative report is viewable in patient's EMR Case has been reviewed in consultation with Dr. Malcolm who concurs with the abovediagnosis. IDC: PHYSICIAN AND INSTITUTION [facility] [address] [place], [place] [address] Signed Deo Kayla 01/30/17 <signature on file> 18-Ptm-30298:04 Basic Metabolic Profile (BMP) Comments: [facility] [address] [place], [address] GAP 6 (Normal) Range: 5-15 CO2 30.0 [...] <126 mg/dLsuggests IMPAIRED HOMEOSTASIS per A.D.A. criteria. 97-Gjq-28101:04 CBC W/Diff, Automated Comments: [facility] [address] [place], [address] Absolute Lymph 1.46 {X10_3/ul} (Normal) Range: 0.83-4.51 [...] Range: 4.4-11.0 :04 Partial Thromboplast Time Comments: [facility] [address] [facility] [address] [place], [place], [address] PTT 26.4 s (Normal) Range: 24.1-36.2 :04 Prothrombin Time w/INR Comments: [facility] [address] [facility] [place], [place], [phone] INR 1.0 (Normal) PROTIME 12.7 s (Normal) Range: 11.7-14.9 :05 CBC W/Diff, Automated Comments: [facility] [address] [facility] [address] [place], [place], [address] Absolute Lymph 2.04 {X10_3/ul} (Normal) Range: 0.83-4.51 [...] 4.2-5.4 WBC 7.8 K/mm3 (Normal) Range: 4.4-11.0 01-Mbf-45550:05 Comprehensive Metabolic Profil Comments: [facility] [address] [place], [address] GAP 7 (Normal) Range: 5-15 CO2 30.0 [...] (Normal) Range: 70-110 :05 Lipid Profile Comments: [facility] [address] [place], [place], [phone] VLDL 10 mg/dL (Normal) Range: 5-40 LDL [...] High Risk :05 Microalb:Creat Ratio,Random UR Comments: [facility] [address] [place], [place], [address] MALB:CREAT 8.6 {mg/g_CRE} (Normal) MICROALBUMIN,UR 5.8 mg/L (Normal) UR CREAT 67.00 mg/dL (Normal) :05 Thyroid Stim Hormone (TSH) Comments: [facility] [address] [place], [address] TSH 0.65 {uIU/mL} (Normal) Range: 0.358-3.74 :05 Urinalysis, Routine (Dipstick) Comments: How was Urine Obtained? [facility] [address] [facility] [place], [address] LEUK ESTERASE 100 /ul (Abnormal) OCCULT BLOOD-UR 25 /ul (Abnormal) NITRITE UR Negative (Normal) UROBILI Normal mg/dL (Normal) PROT DIPSTX Negative mg/dL (Normal) pH UR 6.5 (Normal) Range: 5.0 - 8.0 SP.GR. DIPSTX 1.010 (Normal) Range: 1.002-1.030 KETONE UR Negative mg/dL (Normal) BILIRUBIN URINE Negative mg/dL (Normal) GLUCOSE, UR Normal mg/dL (Normal) CLARITY Clear (Normal) COLOR Yellow (Normal) 92-Qgx-635194:08 TSH (59313) Comments: PATIENT NOT FASTINGPERFORMED BY: [facility] Burywk6264 [facility] [id number] Information: [id number] TSH 1.080 {uIU/mL} (Normal) Range: 0.450-4.500 21-Nov-20146:06 CBC W/Diff, Automated Comments: Test performed at:[facility] [address]45[address] [facility] [place] [address] Absolute Lymph 2.22 {X10_3/ul} (Normal) Range: 0.83-4.51 [...] :06 Comprehensive Metabolic Profil Comments: Test performed at:[facility] [address] [place], [place] [address] GAP 4 (Abnormal) Range: 5-15 CO2 31.0 [...] 70-110 :06 Lipid Profile Comments: Test performed at:[facility] [address], [place] [address] VLDL 11 mg/dL (Normal) Range: 5-40 LDL [...] :06 Microalb:Creat Ratio,Random UR Comments: Test performed at:[facility] [address] [place] [address] MALB:CREAT 21.7 {mg/g_CRE} (Normal) MICROALBUMIN,UR 7.8 mg/L (Normal) UR CREAT 35.8 mg/dL (Normal) 21-Nov-20146:06 Thyroid Stim Hormone (TSH) Comments: Test performed at:[facility] [address] [place] [address] TSH 0.46 {uIU/mL} (Normal) Range: 0.358-3.74 21-Nov-20146:06 Urinalysis, Routine (Dipstick) Comments: How was Urine Obtained? CLEAN CATCHTest performed at:[facility] [address] [place] [address] ; will review at 11/26 appt [...] :06 Vitamin D,25 Hydroxy Comments: Test performed at:[facility] [address] [place] [address] Vitamin D 25-OH 23.4 ng/mL (Normal) Comments: Vitamin D 25(OH) Status Range Deficiency <20 ng/mL (50nmol/L) Insuffciency 20 - 30 ng/mL (50 - 75 nmol/L) Sufficiency 30 - 100 ng/mL (75 - 250 nmol/L) Toxicity >100 ng/mL (>250 nmol/L) 17-Sep-20139:09 TSH (79858) Comments: PATIENT NOT FASTINGPERFORMED BY: [facility] [id number] Information: [id number], [id number] TSH 1.860 {uIU/mL} (Normal) Range: 0.450-4.500 46-Typ-025045:27 TSH (24557) Comments: PATIENT NOT FASTINGPERFORMED BY: [facility] [address] [place] [address] [id number] Information: [id number] TSH 1.760 {uIU/mL} (Normal) Range: 0.450-4.500 :05 [...] mg/dL Borderline >240 mg/dL High Risk :05 MIACRE tMICROCREAT 20.8 {mg/g_CRE} (Normal) MIALB 10.9 [...] (Normal) UCLAR CLEAR (Normal) UCOL YELLOW (Normal) : VITD 24.0 ng/mL (Abnormal) Range: 30.0-100.0 Comments: Vitamin D deficiency has been defined by the [place] ofMedicine and an Endocrine Society practice guideline as alevel of serum 25-OH vitamin D less than 20 ng/mL (1,2).The Endocrine Society went on to further define vitamin Dinsufficiency as a level between 21 and 29 ng/mL (2).1. IOM ([place] of Medicine). 2010. Dietary reference intakes for calcium and D. [place]: The National Academies Press.2. Ham MF, Alvino NC, Hoa-Vitaly AYALA, et al. Evaluation, treatment, and prevention of vitamin D deficiency: an Endocrine Society clinical practice guideline. JCEM. 2010; 96(7): 1911-30.Performed at: [facility] Lab[address] [id number] Director: Stephanie Young MD, Phone: [phone] 25-Feb-20119:43 TSH ([id number]) Comments: PATIENT NOT FASTINGPERFORMED BY: [facility] Jadrte7[address]Dublin [place] [id number] Information: [id number] TSH 2.940 {uIU/mL} (Normal) Range: 0.450-4.500 :43 CALCIFIDIOL (36333) VIT D 25 Comments: PATIENT NOT FASTINGPERFORMED BY: CB [facility] Vqbxfg8667 [address] RoadDublin [place] [id number] Vitamin D, 25-Hydroxy 24.5 ng/mL (Abnormal) Range: 32.0-100.0 Comments: Recent studies consider the lower limit of 32.0 ng/mL to be athreshold for optimal health.Juarez BW. J Nutr. 2004;135(2):317-22. 25-Ulk-559623:08 PARATHORMONE (45822) Comments: PATIENT NOT FASTINGPERFORMED BY: [facility] Hhiiuw60[address]Dublin [place] [id number] Information: [id number] PTH, Intact 47 pg/mL (Normal) Range: 15-65 :06 Microscopic Examination Comments: PATIENT NOT FASTINGPERFORMED BY: CB [facility] Fwbilm32[address]Dublin [place] [id number] Bacteria Few (Normal) Mucus Threads Present (Normal) Epithelial Cells (non renal) None seen {/hpf} (Normal) Range: 0 - 10 RBC None seen {/hpf} (Normal) Range: 0 - 3 WBC 0-5 {/hpf} (Normal) Range: 0 - 5 :06 Vitamin D Hydroxy (90369) Comments: PATIENT NOT FASTINGPERFORMED BY: CB [facility] Ghelej7[address]Dublin [place] [id number] Vitamin D, 25-Hydroxy 27.0 ng/mL (Abnormal) Range: 32.0-100.0 Comments: Recent studies consider the lower limit of 32.0 ng/mL to be athreshold for optimal health.Juarez BW. J Nutr. 2004;135(2):317-22. :06 TSH (89489) Comments: PATIENT NOT FASTINGPERFORMED BY: [facility] [facility] [id number] TSH 4.620 {uIU/mL} (Abnormal) Range: 0.450-4.500 :06 URINALYSIS, W/ MICRO (00345) Comments: PATIENT NOT FASTINGPERFORMED BY: [facility] [facility] [id number] Microscopic Examination See below: (Normal) Microscopic Examination MICRON (Normal) Comments: Microscopic follows if indicated. Nitrite, Urine Negative (Normal) Bilirubin Negative (Normal) Ketones Negative (Normal) Occult Blood Negative (Normal) Urobilinogen,Semi-Qn 0.2 mg/dL (Normal) Range: 0.0-1.9 Glucose Negative (Normal) Protein Negative (Normal) Appearance Clear (Normal) Urine-Color Yellow (Normal) WBC Esterase Negative (Normal) pH 6.5 (Normal) Range: 5.0-7.5 Specific [place] 1.007 (Normal) Range: 1.005-1.030 :06 MICROALBUMIN: CREATININE RATIO Comments: PATIENT NOT FASTINGPERFORMED BY: [facility] [facility] [id number] ([id number]) AND (66354) Microalb/Creat Ratio 13.5 {mg/g_creat} (Normal) Range: 0.0-30.0 Creatinine, Urine 19.3 mg/dL (Normal) Range: 15.0-278.0 Microalbumin, Urine 2.6 ug/mL (Normal) Range: 0.0-17.0 :06 METABOLIC PANEL, COMPREHENSIVE Comments: PATIENT NOT FASTINGPERFORMED BY: [facility] [facility] [id number] (10327) Alkaline Phosphatase, S 81 [iU]/L (Normal) Range: [...] MANUAL DIFF Comments: PATIENT NOT FASTINGPERFORMED BY: [facility] Mhawtx5[address] [facility] [id number] Information: [id number] ([id number]) Immature Grans (Abs) 0.0 {x10E3/uL} (Normal) Range: [...] 3.80-5.10 WBC 6.3 {x10E3/uL} (Normal) Range: 4.0-10.5 63-Dby-61251:05 CBCD,SMEAR DIFF EOS 6 % (Abnormal) Range: [...] CHOL 191 mg/dL (Normal) Comments: <200 mg/dL Wpxnqcxyu541-683 mg/dL Borderline>240 mg/dL High Risk HDL 57 [...] {uIU/mL} (Normal) Range: 0.358-3.74 :05 VIT D,25 11468 29.2 ng/mL (Abnormal) Range: 32.0-100.0 Comments: Recent studies consider the lower limit of 32.0 ng/mL to daren threshold for optimal health.Larry BW. J Nutr. 2004;135(2):317-22.Performed at: [facility] [id number] Director: Caprice Woods MD 70-Uqq-52589:58 URINE VENICE CULTURE-DESMOND COL Comments: PATIENT NOT FASTINGClinical Information: SRC:UR ADD [id number] PERFORMED BY: [facility] [id number] COUNT ([id number]) Result 1 BETAGB (Normal) Comments: Beta hemolytic [...] Disease, November,.) Urine Final report (Normal) Culture,Comprehensive 03-Zfa-05767:59 Urinalysis, Office (63594) UA - BILIRUBIN Negative (Normal) UA - [...] TIMED TSH 3.448 {uIU/mL} Comments: PERFORMED BY: [facility] Xegnou13[address] [facility] [id number] 5:11 (Normal) Range: 0.450-4.500 TSH 4.26 {uIU/mL} [...] breast cancer Metastatic breast cancer : Reviewed Foam Molder Letter Indication: Metastatic breast cancer Benign essential hypertension : Continue Current Prescription(s) Indication: Benign essential hypertension Hypercholesterolemia : Cholesterol mgmt Indication: Hypercholesterolemia Benign essential hypertension : HTN/CAD Red Flags Indication: Benign essential hypertension Metastatic breast cancer : Reviewed Lab Indication: Metastatic breast cancer Metastatic breast cancer : Reviewed Diagnostic Tests Indication: Metastatic breast cancer Metastatic breast cancer : Reviewed Foam Molder Letter Indication: Metastatic breast cancer Non-smoker : [...] of right ankle, initial encounter : Reviewed Foam Molder Letter Indication: Sprain of right ankle, initial encounter Metastatic breast cancer : Reviewed Foam Molder Letter Indication: Metastatic breast cancer Benign essential [...] Osteoporosis Planned Observations TSH (THYROID STIMULATING HORMONE) (63049)Indication: Hypothyroidism, unspecified On: 75-Gkc-211812:32 Request Comments: re check in 6 weeks TSH (THYROID STIMULATING HORMONE) (12741)Indication: Hypothyroidism, unspecified On: 61-Dhs-213530:36 Request T4, FREE (THYROXINE) (02137)Indication: Hypothyroidism, unspecified On: 30-Xrq-318661:33 Request T3, FREE (TRIDOTHYRONINE) (40207)Indication: Hypothyroidism, unspecified On: 94-Tkc-118012:33 Request CALCIFIDIOL (06766) VIT D 25Indication: Vitamin D deficiency, unspecified On: :47 Request TSH (48123)Indication: Hypothyroidism, unspecified On: :46 Request URINALYSIS, W/ MICRO (85156)Indication: Benign essential hypertension On: :46 Request MICROALBUMIN: CREATININE RATIO (95584) AND (18051)Indication: Benign essential hypertension On: :46 Request METABOLIC PANEL, COMPREHENSIVE (91983)Indication: Benign essential hypertension On: :46 Request LIPID PANEL (51641)Indication: Hypercholesterolemia On: :46 Request CBC W/AUTO DIFF WBC (50839)Indication: Benign essential hypertension On: :46 Request URINE VENICE CULTURE-DESMOND COL COUNT (88323)Indication: UTI symptoms On: 68-Fzo-919759:31 Request LIPID PANEL (21631)Indication: Hypercholesterolemia On: :55 Request Comments: November 2016 MICROALBUMIN: CREATININE RATIO (93704) AND (15443)Indication: Benign essential hypertension On: :54 Request Comments: November 2016 URINALYSIS (28235)Indication: Benign essential hypertension On: :54 Request Comments: November 2016 CBC, Platelets & Auto Diff (09270)Indication: Benign essential hypertension On: :54 Request Comments: November 2016 Metabolic Panel, Comprehensive (06095)Indication: Benign essential hypertension On: :54 Request Comments: November 2016 TSH (24962)Indication: Hypothyroidism, unspecified On: :53 Request Comments: due in November 2016 Vitamin D Hydroxy (86399)Indication: Vitamin D deficiency, unspecified On: 54-Huc-089675:01 Request URINALYSIS, W/ MICRO (12152)Indication: Benign essential hypertension On: 10-Ymn-704627:00 Request MICROALBUMIN: CREATININE RATIO (60098) AND (46322)Indication: Benign essential hypertension On: 63-Nmd-364087:00 Request METABOLIC PANEL, COMPREHENSIVE (11190)Indication: Benign essential hypertension On: 68-Qyx-720661:00 Request LIPID PANEL (83437)Indication: Hypercholesterolemia On: 63-Uij-995054:00 Request CBC WITH MANUAL DIFF (35899)Indication: Benign essential hypertension On: 79-Dob-811869:00 Request TSH (58228)Indication: Hypothyroidism, unspecified On: 16-Zfy-290917:00 Request Vitamin D Hydroxy (31717)Indication: Osteoporosis On: :44 Request URINALYSIS, W/ MICRO (97188)Indication: Benign essential hypertension On: :41 Request MICROALBUMIN: CREATININE RATIO (07189) AND (15324)Indication: Benign essential hypertension On: :41 Request METABOLIC PANEL, COMPREHENSIVE (13416)Indication: Benign essential hypertension On: :41 Request LIPID PANEL (96117)Indication: Benign essential hypertension On: :41 Request CBC WITH MANUAL DIFF (61782)Indication: Benign essential hypertension On: :41 Request TSH (85915)Indication: Hypothyroidism, unspecified On: :40 Request TSH (24949)Indication: Hypothyroidism, unspecified On: 56-Exr-178354:09 Request LIPID PANEL (54394)Indication: Hypercholesterolemia On: 7-Hqn-555080:12 Request METABOLIC PANEL, COMPREHENSIVE (24883)Indication: Hypercholesterolemia On: 6-Qms-208698:12 Request TSH (38488)Indication: Hypothyroidism, unspecified On: 4-Uyi-045648:12 Request Planned Procedures ELECTROCARDIOGRAM, COMPLETE (ECG) On: 06-Dec-2017 Intent (20365)By: Tayla Espinal DO Comments: nsr no acute chg DO, Tayla Velez DO PNEUM VAC ADLT/IMUMNOSPR, SBC/INTRM On: 24-Mar-2017 Intent (57526)By: Tayla Espinal DO Comments: lot:[id number]:IM left deltoid dose:0.5ml given by:hayley Us LPN DOTayla DO, Kathleen ELECTROCARDIOGRAM, COMPLETE (ECG) On: 04-Jan-2017 Intent (76942)By: Tayla Espinal DO Comments: nsr no acute cgh DO, Tayla Espinal DO, Tayla PHYSICAL THERAPY EVALUATION (21281)By: On: 11-May-2015 Intent Elizabeth Villanueva CNP Radiology - Knee - RightBy: Kay MUÑOZ, On: 11-May-2015 Intent Elizabeth Watts MAMMOGRAM, SCREENING, BOTH BREAST On: 22-Aug-2014 Intent (15365)By: Tayla Espinal DO Comments: send results to Tayla Matthews DO, DO, Kathleen DEXA SCAN AXIAL SKELETON (97890)By: On: 22-Aug-2014 Intent Tayla Espinal DO, DO, Kathleen Comments: send results to Tayla Rondon DO Eprescribed prescriptions ([id number])By: On: 13-Sep-2012 Intent Lilian Richardson LPN Inhaler Demonstration (08696)By: Kay On: 04-Jul-2012 Intent Elizabeth MUÑOZ Inhaler Demonstration (27178)By: Kay On: 04-Jul-2012 Intent WANDA Josefa Aerosol Treatment (98290)By: Kay MUÑOZ, On: 04-Jul-2012 Intent Elizabeth Watts Eprescribed prescriptions (G8553)By: On: 27-May-2011 Intent Kay MUÑOZ Josefa EKG (04134)By: Tayla Espinal DO On: 23-Sep-2010 Intent Tayla Espinal DO, DO, Kathleen Comments: nsr no acute chg Eprescribed prescriptions ([id number])By: On: 23-Sep-2010 Intent Tayla Espinal DO, DO, Kathleen Fearon DO, Kathleen EKG (55562)By: Tayla Espinal DO On: 01-Jun-2009 Intent Tayla Espinal DO, DO, Kathleen Comments: nsr no acute changes SPECIMEN HANDLING/TRANSPORT (71699)By: On: 28-Nov-2008 Intent Keren Wilde LPN Radiology [...] Advance Directives Name Dates Details Immunization Registry Smoot - Effective on 03/24/2017. Effective: 24-Mar-2017 Expiration date unspecified Encounters Phone Encounter On: 18-May-2018 13:26 Encounter Diagnosis: Hypothyroidism, unspecified End: 18-May-2018 13:33 [facility] Lab Order On: 01-Feb-2018 14:54 Encounter Diagnosis: [...]
--- OUTSIDE RECORDS SUMMARY | 2018-07-15 17:16 | XMS RPT_ITS | Continuity of Care Document ---
:1940 Author Organization [facility] Address [facility] 2 [place] [address] Phone Care Team Providers Name Role Phone [...] days Quantity: 30 {Tablet} Refills: 3 Ordered:18-May-2018 Bertha Espinal DO, DO, KathleenFearon DO, Tayla Start : 18-May-2018 Active Metoprolol Tartrate 50 MG Oral Tablet 1 (one) Tablet bid for 0 days Quantity: 180 {Tablet} Refills: 3 Ordered:28-Aug-2017 Kylie LINDERBertha DO, KathleenFearon DO Tayla Start : 28-Aug-2017 Active Omeprazole 20 [...] : 30-Mar-2017 End : 06-Dec-2017 Inactive DRISDOL, [id number] (Oral Capsule) 1 Capsule 2 X WEEK [...] Visit Report Result: Comments: See Note; NOTES: [facility] [address] [place], [place] [address] OFFICE VISIT Date of Service: 11/07/17 MR#: [id number] Acct: [id number] Name: ANNA PRICE Rep #: [id number] : 1940 Provider: Stacey Pizano PA-C Age/Sex: 77/F Location: [facility] Status: Signed Intake Intake Visit Reasons: pain at mastectomy site 2017 Chief Comp laint: Encephalopathy Editor Map Required: No Is patient in pain?: Yes [...] was treated with Gamma Knife treatment at [facility]. Patient had a follow-up MRI of the brain a [facility] which demonstrated dramatic decrease in the [...] Stacey Pizano PA-C> Date Stacey Pizano PA-C Cosign Signature: D ate (if applicable) CC: 31-Oct-2017 Surgery Visit Report Result: Comments: See Note; NOTES: [facility] [address] [place] [address] OFFICE VISIT Date of Service: 10/31/17 MR#: [id number] Acct: [id number] Name: ANNA PRICE Rep #: [id number] : 1940 Provider: Stacey Pizano PA-C Age/Sex: 77/F [place] [facility] [place]: Signed Intake Intake Visit Reasons: pain [...] mg PO Q6H PRN PRN [History Confirmed 05/15/18] Fluconazole [Diflucan] 100 mg PO DAILY #10 [...] was treated with Gamma Knife treatment at [facility]. Patient had a follow-up MRI of the brain at [facility] which demonstrated dramatic decrease in [...] signed by Stacey Pizano PA-C> Date Stacey Moya r Signature: Date (if applicable) CC: 25-Oct-2017 OT D/C Summary Result: Comments: See Note; NOTES: [facility] [address] [place] [address]. 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 right lat. pinch 8# righ t [...] please fell free to call me at [phone]. Thank you for the referral of this patient. Sincerely, STALIN Cunningham/Lu, CHT <Electronically signed by Stephanie GANT/MARY Leigh> 10/25/17 1053 CC: Stacey bowie PA-C; Tayla Espinal DO MK Signed 16-Oct-2017 OT General Evaluation Result: Comments: See Note; NOTES: [facility] [address] [place] [address] Rd. [address] [place] [address] Fax REHABILITATION SERVICES INI TIAL EVALUATION MR#: [id number] Acct: [id number] Name: ANNA BARRERA Rep #: [id number] : 1940 77 From: Stephanie GANT/MARY Leigh Referring DrAlondra: Stacey Pizano PA-C Status: REG RCR In surance: ANTHEM Eval Date: MEDICARE A ONLY Patient's Visit Information [...] Left WNL - Strength Shoulder: R/L 4/5 Jewel Waxer: right 45# left 45# Lateral Pinch: right [...] pt was also ed. on energy conservation reic. to assist in decreasing pts fatig ue. pt will be encouraged to return to her health and wellnes ex. plan following therapy. TEXT: Thank you for the opportunity to evaluate your patient. For Medicare and Medicare HMO plans, please r eview the plan of care and approve it. It will need to be FAXED BACK to us at [phone] for Medicare purposes. Please let me know [...] Summary (1) Result: Comments: See Note; NOTES: [facility] [place] [address] [facility] [address] [place] [address] Fax REHABILITATION SERVICES GILDAENDER BENJAMIN SUMMARY MR#: [id number] Acct: [id number] Name: ANNA BARRERA Rep #: [id number] : 1940 77 From: Amelie GAMEZT Referring Dr.: Stacey Pizano PA-C Status: REG RCR Insurance: ANTHE M MEDICARE A ONLY HP - PT [...] Goal Met - Plan Plan: Discharge to [facility] through health and wellnesss - D/C Information If there are questions or concerns regarding this patient's physical therapy, please feel free to call me at [phone]. Thank you for the referral of this patient. Sincerely, Amelie Rodriguez <Electronically signed by Amelie Rodriguez DPT> 10/10/17 1028 CC: Stacey Pizano PA-C; Tayla Espinal DO ELR Signed 05-Oct-2017 OT General Evaluation Result: Comments: See Note; NOTES: [facility] [address] [place] [address] Fax REHABILITATION SERVICES INI TIAL EVALUATION MR#: [id number] Acct: [id number] Name: ANNA BARRERA Rep #: [id number] : 1940 77 From: Stephanie Schilling OTR/Lu, CHT Referring Dr.: Stacey Pizano PA-C Status: REG RCR In [...] Left WNL - Strength Shoulder: R/L 4/5 Jewel Waxer: right 45# left 45# Lateral Pinch: right [...] to be FAXED BACK to us at [phone] for Medicare purposes. Please let me know if there are questions or concerns regarding this plan of care. Vladimir peralta Signature: Date: <Electronically signed by Stephanie GANT/MARY Leigh> 10/05/17 0934 CC: Stacey Pizano PA-C; Tayla Espinal DO DOTTY Signed For Medicare only, by signing this I certify the plan of care. Physicians Signature Date 08-Sep-2017 Emergency Department Summary Result: Comments: See Note; NOTES: [facility] Medical Records Department [address] [place] [address] Emergency Department Summary 09/08/17 1630 MR#: [id number] Acct: [id number] Name: ANNA BARRERA Rep #: [id number] : 1940 77 From: Jose May MD PCP: Tayla Espinal DO Status: REG ER ADDENDUM by Srinivas Gabriel on 09/08/17 at 1756 Patient was endorsed to me by the critical access hospital physician with instructions to check on [...] 2. Delirium This note was generated with Linioation software. It may contain incorrect words, spelling, [...] your Prima Care Provider. Call [facility] ([phone]) or report to the closest Emergency Room. Call 911 if necessary. 09/08/17 1712 <Electronically signed by Jose May MD> Date ___ Jose May MD Cosigner Signature (If Indicated): Date CC: Tayla Espinal DO 08-Sep-2017 Emergency Department Summary Result: Comments: See Note; NOTES: [facility] Medical Records Department [address] [place] [address] Emergency Department Summary 09/08/17 1630 MR#: [id number] Acct: [id number] Name: ANNA BARRERA Rep #: [id number] : 1940 77 From: Jose May MD [...] infarction, or ischemia. White count 2.9. Li galdino enzymes slightly elevated. Lipase normal. Urinalysis normal. [...] 2. Delirium This note was generated with ServerEngines dictation software. It may contain incorrect words, [...] lems, contact your Primary Care Provider. Call [facility] ([phone]) or report to the closest Emergency Room. Call 911 if necessary. 09/08/17 3697 <Electronically signed by Jose iglesias MD> Date Jose May MD Cosigner Signature (If Indicated): Date CC: Tayla Kylie LINDER 08-Sep-2017 Brain/Head without Contrast Result: Comments: See Note; NOTES: [facility] Imaging Services [address] [place] [address] Brain/Head without Contrast MR#: [id number] Acct: [id number] Name: ANNA BARRERA Rep #: [id number] : 1940 F 77 From: Nasrin Orta MD PCP: Tayla Espinal DO Status: REG ER Study: Brain/Head without Contrast Date of Exam: 09/08/17 Exam# [id number] Ordering Dr: Jose May STUDY: CT BRAIN [...] Orta MD at 17:11 EDT Tel Direct: [phone], Service support , CC: Jose May MD; Tayla Espinal DO Car Body Mechanic: Signed 08-Sep-2017 Chest 1 View (Portable) Result: Comments: See Note; NOTES: [facility] Imaging Services [address] [place] [address] Chest 1 View (Portable) MR#: [id number] Acct: [id number] Name: ANNA BARRERA Rep #: [id number] : 1940 F 77 From: Nasrin Orta MD PCP: Tayla Espinal DO Status: REG ER Study: Chest 1 View (Portable) Date of Exam: 09/08/17 Exam# [id number] Ordering Dr: Jose May MD STUD Y: [...] Orta MD at 17:17 EDT Tel Direct: [phone], Service s upport , CC: Jose May MD; Tayla Espinal DO Car Body Mechanic: Signed 08-Sep-2017 Abdomen/Pelvis W IV Cont ONLY Result: Comments: See Note; NOTES: [facility] Imaging Services [address] [place] [address] Abdomen/Pelvis W IV Cont ONLY MR#: [id number] Acct: [id number] Name: ANNA BARRERA ep #: [id number] : 1940 F 77 From: Terence Calero MD PCP: Tayla Espinal DO Status: REG ER Study: Abdomen/Pelvis W IV Cont ONLY Date of Exam: 09/08/17 Exam# [id number] Ordering Dr: Jose May MD STUDY: CT [...] CC: Jose May MD; Tayla Espinal DO Car Body Mechanic: Signed 23-Aug-2017 Surgery Visit Report Result: Comments: See Note; NOTES: [place] [address] OFFICE VISIT Date of Service: 08/23/17 MR#: [id number] Acct: [id number] Name: ANNA BETANCOURT Rep #: [id number] : 1940 Provider: Stacey Garcia Age/Sex: 77/F [place] [facility] [place] Status: Signed Intake Intake Visit Reasons: F/U MASTECTOMY/CEBUL Editor Map Required: No Is patient in pain?: No [...] with Gamma Knife treatment at [facility] [place] . She will have a follow up [...] W/WO Contrast Result: Comments: See Note; NOTES: [facility] Imaging Services [address] [place] [address] Brain W/WO Contrast MR#: [id number] Acct: [id number] Name: ANNA BARRERA Rep #: [id number] : 1940 F 77 From: Glenn Taylor DO PCP: Tayla Espinal DO Status: REG CLI Study: Brain W/WO Contrast Date of Exam: 07/31/17 Exam# [id number] Ordering Dr: Ky Burkett DO STUDY: MR [...] lateral ventricle and with a 3 mm dvfn-cr-gbsin shift of the septum pellucidum (coronal T2 [...] surrounding vasogenic edema produ cing a mild lspu-ji-obdle midline shift and mild mass effect, 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 2. Mild chronic white matter ischemic changes of the supratentorial brain and thong. 3. 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 4. No acute or evolving ischemic process. Electronically Signed: Glenn WattsAlondra Taylor DO at 13:48 EST Tel , Service support , CC: Tayla Espinal DO; Ky Burkett DO Car Body Mechanic: Signed 24-Jul-2017 Inital Evaluation (1) - PT Result: Comments: See Note; NOTES: [facility] [address] [facility] [address] [place] [address] Fax REHABILITATION SERVICES INITIAL EVALUATION MR#: [id number] Acct: [id number] Name: ANNA BARRERA Rep #: [id number] : 1940 77 From: Amelie Rodriguez DPT Referring Dr.: Stacey Pizano PA-C Status: REG R Insurance: [facility] MEDICARE A ONLY Patient's Visit [...] Paredes and Dr. Merritt. [facility] to [facility] she lived in until Monday. Chemo 8x- CT scans- mets on the right lowe r lobe of the lung- Chest wall, fascia, muscle of the chest. Will have another scan at [facility] next monday. Does not have to [...] to be FAXED BACK to us at [phone] for Medicare purposes. Please let me know if ther e are questions or concerns regarding this plan of care. Physician Signature: Date: <Electronically signed by Amelie Rodriguez DPT&am p;#62; 07/24/17 1027 CC: Stacey Pizano PA-C; Tayla Espinal DO ELR Signed For Medicare only, by signing this I certify the plan of care. _ Physicians Signature Date 15-Jul-2017 Discharge Instruction Result: Comments: See Note; NOTES: [facility] Medical Records Department [address] [place] [address] Discharge Instruction 07/15/17 1045 MR#: [id number] Acct: [id number] Name: ANNA PEREZ Rep #: [id number] : 1940 77 From: Tre Mcguire DO [...] your Primary Care Provider. Call [facility] ([phone] ) or report to the closest Emergency Room. Call 911 if necessary. 07/15/17 1047 <Electronically signed by Tre Mcguire DO> Date Tre wahl DO Cosigner Signature (If Indicated): Date CC: Tayla Espinal DO 15-Jul-2017 Emergency Department Summary Result: Comments: See Note; NOTES: [facility] Medical Records Department [address] [place] [address] Emergency Department Summary 07/15/17 1042 MR#: [id number] Acct: [id number] Name: ANNA BARRERA Rep #: [id number] : 1940 77 From: Tre Mcguire DO PCP: Tayla Espinal DO Status: REG ER - ER Visit Summary Date of Service: 07/15/17 Chief Complaint: [Diarrhea] History of Present Illness: The patient is a 77 F [presents to the emergency department with symptoms of diarrhea that started this morning around 7 AM. Patient states she has had 3-4 watery stools. Patient is from [facility]. Patient denies any abdominal pain or [...] any fevers. She was told at the [facility] living [facility] that her temperature was 99.2 [...] Impression: [Diarrhea] This note was generated with ServerEngines dictation software. It may contain incorrect wo [...] unexpected problems, contact your Primary Care Provider. [facility] Doctors Registry ([phone]) or report to the closest Emergency Room. Call 911 if necessary. 07/15/17 1045 <Electronically signed by Tre Mcguire DO> Date Tre Mcguire DO Cosigner Signature (If Indicated): Date CC: Tayla Espinal DO 13-Jul-2017 Surgery Visit Report Result: Comments: See Note; NOTES: [facility] [address] [address] OFFICE VISIT Date of Service: 07/12/17 MR#: [id number] Acct: [id number] Name: ANNA BETANCOURT Rep #: [id number] : 1940 Provider: Stacey Garcia Age/Sex: 77/F Location: [facility] Status: Signed Intake Intake Visit Reasons: F/U MASTECTOMY/CEBUL Editor Map Required: No Is patient in pain?: Yes [...] DIRECTED #4 ea 07/12/17 [Rx Confirmed 07/12/17] [facility] Medical History Left breast mass (Acute) Hypothyroidism [...] Patient returns for a follow-up from [facility] [place] [facility]. Patient is overall doing well. She [...] patient - May return to therapy at [facility] - Prescription for mastectomy bras was provided [...] Visit Report Result: Comments: See Note; NOTES: [facility] [address] [facility] [address] [place] [address] OFFICE VISIT Date of Service: 06/27/17 MR#: [id number] Acct: [id number] Name: ANNA BETANCOURT Rep #: [id number] : 1940 Provider: Stacey Garcia Age/Sex: 77/F [place] [facility] [place] Status: Signed Intake Intake Visit Reasons: F/U MASTECTOMY/CEBUL Chief Complaint: left mastectomy RC Editor Map Required: No Is patient in pain?: No [...] mcg PO CHAVEZ 06/15/17 [History Confirmed 06/27/17] [facility] Breast cancer (Acute) Left [...] signed by Stacey Pizano PA-C> Date _ Staecy Pizano PA-C Cosigner Signature: Date (if applicable) CC: Ky Burkett DO 21-Jun-2017 12 Lead Electrocardiogram Result: Comments: See Note; NOTES: [facility] Cardiovascular Services [address] [place] [address] 12 Lead EKG 06/17/17 1008 MR#: [id number] Acct: [id number] Name: ANNA BARRERA Rep #: [id number] : 1940 76 From: Delvin Coleman MD Attending Dr: Josh Merritt MD Status: PRE SDC Ordering Dr: Josh Merritt MD Date: 06/17/17 Location: [facility] [place] Sex: F C Admitted: Test Reason : P REOP Blood Pressure : / mmHG Vent. Rate : 075 BPM Atrial Rate : 075 BPM P-R Int : 168 ms QRS Dur : 096 ms QT Int : 386 ms P-R-T Axes : 041 -23 060 degrees QTc Int : 431 ms Normal sinus rhythm Bor derline ECG Confirmed by DELVIN COLEMAN MD ([id number]), editorial specialist DANIELLE STAHL ([id number]) on 06/21/2017 3:06:43 PM Referred By: TOBY Confirmed By:DELVIN COLEMAN MD 06/21/17 1506 Date Delvin Coleman MD CC: Tayla Espinal DO Signed 01-Jun-2017 Surgery Visit Report Result: Comments: See Note; NOTES: [facility] [address] [facility] [address] [place] [address] OFFICE VISIT Date of Service: 05/30/17 MR#: [id number] Acct: [id number] Name: ANNA BETANCOURT Rep #: [id number] : 1940 Provider: Stacey Garcia Age/Sex: 76/F Location: [facility] Status: Signed Intake Vital Signs05/30/17 Height 5 ft 5 in 05/30/17 Weight: 145 lb Int grayson Visit Reasons: Update H AND P.el Editor Map Required: No Is patient in pain?: No [...] 76-year-old female. She was referred by her [facility] Dr. Ky Burkett for surgical treatment of her left breast cancer. She was hospitalized at the [facility] January 10, 2017 becaus niharika of uncontrolled bleeding from a large left [...] Left breast mass N63.[address] Shaina ferguson to perform a left palliative mastectomy. Patient has had the opportunity to ask and have questions answered. Patient verbally understands the procedure and agrees to proceed. 06/01/17 1116 &# 60;Electronically signed by Stacey Pizano PA-C> Date Stacey Pizano PA-C Cosigner Signature: Date (if applicable) CC: 30-Mar-2017 Emergency Department Summary Result: Comments: See Note; NOTES: [facility] Medical Records Department [address] [place] [address] Emergency Department Summary 03/15/172011 MR#: [id number] Acct: [id number] Name: ANNA BARRERA Rep #: [id number] : 1940 76 From: Munir Kennedy MD PCP: Tayla Espinal DO Status: DEP ER - ER Visit Summary Date of Service: 03/15/17 Chief Complaint: [] Right ankle pain and passed out. History of Present Illness: The patient is a 76 F [] here with family after shoe folder arrival. Patient states that she stepped off [...] problems, contact your Primary Care Provider. [facility] ([phone]) or report to the closest Emergency Room. Call 911 if necessary. 03/30/17 5209 <Electronically signed by Munir Kennedy MD> Date Munir Reavesigntiffany Signature (If Indicated): Date CC: Tayla Espinal DO 17-Mar-2017 12 Lead Electrocardiogram Result: Comments: See Note; NOTES: [facility] Cardiovascular Services [address] [place] [address] 12 Lead EKG 03/15/171406 MR#: [id number] Acct: [id number] Name: ANNA BARRERA Rep #: [id number] : 1940 76 From: Delvin Coleman MD [...] ECG Confirmed by DELVIN COLEMAN MD ([id number]), editorial specialist DANIELLE STAHL (56) on 03/17/2017 2:36:13 PM Referred By: DOUGIE Confirmed By:DELVIN COLEMAN MD 03/17/17 1436 Date Delvin Coleman MD CC: Tayla Espinal DO Date Dictated: 03/15/171406 Date Transcribed: 03/15/171406 Car Body Mechanic: Signed 15-Mar-2017 Emergency Department Summary Result: Comments: See Note; NOTES: [facility] Medical Records Department [address] [place] [address] Emergency Department Summary 03/15/17 1528 MR#: [id number] Acct: [id number] Name: ANNA BARRERA Rep #: [id number] : 1940 76 From: Munir Kennedy MD [...] Burkett DO [STAFF OLAYINKA BOND] - Keep Jaeme appointment What to do if you have Problems For any increased pain, shortness of breath, bleeding, nausea or vomiting, chest pain, or any unexpected problems, contact your Primary Care Provider. Call [facility] ([phone]) or report to the closest Emergency Room. Call 911 if necessary. 03/15/17 1530 <Electronically signed by Munir Kennedy MD> Date Munir Kennedy MD Cosigner Signature (If Indicated): Date CC: Tayla Espinal DO 15-Mar-2017 Ankle min 3 Views Result: Comments: See Note; NOTES: [facility] Imaging Services [address] [place] [address] Ankle min 3 Views MR#: [id number] Acct: [id number] Name: ANNA BARRERA Rep #: [id number] : 1940 F 76 From: Asa Verma MD PCP: Tayla Espinal DO Status: [facility] ER Study: Ankle min 3 Views Date of Exam: 03/15/17 Exam# [id number] Ordering Dr: Munir Kennedy MD STUDY: X-RAY [...] Asa Verma MD at 14:22 EDT Tel [phone], Service support , CC: Munir Kennedy MD; Tayla Espinal DO Car Body Mechanic: Signed 06-Feb-2017 Emergency Department Summary Result: Comments: See Note; NOTES: [facility] Medical Records Department [address] [place] [address] Emergency Department Summary 02/06/17 1134 MR#: [id number] Acct: [id number] Name: ANNA BARRERA Rep #: [id number] : 1940 76 From: Srinivas Gabriel MD PCP: Tayla Espinal DO Status: [facility] ER - ER Visit Summary Date of Service: 02/06/17 Chief Complaint: Wound check Hist ory of Present Illness: The patient is a 76 F presenting due to concern for a wound infection. Patient has a history of a fungating left breast mass that is been complicated by having bleeding on dressi ng changes. half-way staff was concerned for the possibility of [...] dressing changes by the staff at her senior living and requested referral to wound care. I [...] Additional Instructions: Fol low-up with wound care [phone] What to do if you have Problems For any increased pain, shortness of breath, bleeding, nausea or vomiting, chest pain, or any unexpected problems, contact your P [facility] Care Provider. Call [facility] ([phone]) or report to the closest Emergency Room. Call 911 if necessary. 02/06/17 6268 <Electronically signed by Srinivas Gabriel MD> Da te Srinivas Gabriel MD Cosigner Signature (If Indicated): Date CC: Tayla Espinal DO 10-Jan-2017 Chest WITH Contrast Result: Comments: See Note; NOTES: [facility] Imaging Services [address] [place] [address] [place] Chest WITH Contrast MR#: [id number] Acct: [id number] Name: ANNA BARRERA Rep #: [id number] : 1940 F 76 From: Asa Verma MD PCP: Tayla Espinal DO Status: REG ER Study: Chest WITH Contrast Date of Exam: 01/10/17 Exam# [id number] Ordering Dr: Nasrin Lizama STUDY: CT CHEST [...] Asa Verma MD at 10:40 EDT Tel [phone], Service support , CC: Nasrin [place] MD; Tayla Espinal DO Car Body Mechanic: Signed 03-Jul-2015 PT D/C Summary Result: Comments: See Note; NOTES: [facility] [address] [facility] [address] [place] [address] Fax REHABILITATION RVICES DISCHARGE SUMMARY MR#: [id number] Acct: [id number] Name: ANNA BARRERA Rep #: [id number] : 1940 75 From: Amelie Rodriguez Referring DrAlondra: Elizabeth Villanueva Status: REG RCR Eval Date : Discharge Date: HP - PT D/C Summary It has been my pleasure to treat ANNA BARRERA under orders from Elizabeth Villanueva, for the diagnosis of Right Knee Pain for a total of 16 visit(s). 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 - Objective Objective/Function: Patient [...] feel free to call me a t [phone]. Thank you for the referral of this patient. Sincerely, Amelie Rodriguez <Electronically signed by Amelie Rodriguez > 07/03/15 1031 CC: Elizabeth Villanueva; Tayla Espinal DO ELR Signed 10-Jun-2015 Re-Evaluation - PT Result: Comments: See Note; NOTES: [facility] [address] [facility] [address] [place], [place] [address] Fax [facility] MR#: [id number] Acct: [id number] Name: ANNA BARRERA Rep #: [id number] : 1940 74 From: Amelie Rodriguez Referring Dr.: Elizabeth Garnica tatus: REG RCR Insurance: ANTHCALVIN Villanueva, It has [...] do not hesitate to contact me at [phone] by phone or if you have questions or concerns regarding this new plan of care! Sincerely, Amelie Rodriguez <Electronically signed by Amelie Rodriguez > 06/10/15 1058 CC: Elizabeth Espinal DO ELR Signed For Medicare only, by signing this I certify the plan of care. Physicians Signature Date 19-May-2015 Inital Evaluation - PT Result: Comments: See Note; NOTES: [facility] Physical Therapy Health[address] [place] [address] Fax REHABILITATION ELIZA INITIAL EVALUATION MR#: [id number] Acct: [id number] Name: ANNA BARRERA Rep #: [id number] : 1940 74 From: Amelie Rodriguez Referring [...] in the AM and meets with a lsat instructor 1x a week. - Objective Posture: [...] to be FAXED BACK to us at [phone] for Medicare purposes. Please let me know [...] More Views Result: Comments: See Note; NOTES: [facility] Imaging Services [address] [place] [address] Verdana 4d Knee 4 or More Views MR#: [id number] Acct: [id number] Name: ANNA PRICE Rep #: [id number] : 1940 F 74 From: Afshin Gant DO PCP: Tayla Espinal DO Status: REG CLI Study: Knee 4 or More Views Date of Exam: 05/11/15 Exam# [id number] Ordering Dr: Elizabeth Richards STUDY: X-RAY - [...] Afshin Gant DO at 9:20 EST Tel [phone], Service support [phone], RAD/Knee 4 or More Views IMPRESSION: Degenerative arthrosis. Electro nically Signed: Afshin Gant DO at 9:20 EST Tel [phone], Service support [phone], CC: Elizabeth Villanueva; Tayla Espinal DO Car Body Mechanic: Signed 30-Oct-2014 Bilat Scrn Digital AND CAD Result: Comments: See Note; NOTES: [facility] Imaging Services [address] [place] [address] Breast Imaging Report MR#: [id number] Acct: [id number] Name: ANNA BARRERA p #: [id number] : 1940 F 74 From: Afshin Gant DO PCP: Tayla Espinal DO Status: REG CLI Study: Bilat Scrn Digital AND CAD Date of Exam: 10/30/14 Exam# [id number] Ordering Dr: Douglas Espinal DO MAMMOGRAPHY - [...] Afshin Gant DO at 14:34 EDT Tel [phone], Service support [phone], CC: Tayla Espinal DO Car Body Mechanic: Signed 30-Oct-2014 Dexa Bone Density Study (HP) Result: Comments: See Note; NOTES: [facility] Imaging Services [address] [place] [address] Bone Density Report MR#: [id number] Acct: [id number] Name: YADIGABINOTIFFANYANNA Garnica Rep #: [id number] : 1940 F 74 From: Asa Verma MD PCP: Tayla Espinal DO Status: [facility] CL Study: Dexa Bone Density Study (HP) Date of Exam: 10/30/14 Exam# [id number] Ordering Dr: Kylie, Tayla DO STUDY: DUAL ENERGY X-RAY ABSORPTIOMETRY / [...] Asa Verma MD at 8:23 EDT Tel [phone], Service support [phone], CC: Tayla Espinal DO 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 Occupational [facility] [address] [place] [address] Fax REHABILITATION SERVIC ES DISCHARGE SUMMARY MR#: [id number] Acct: [id number] Name: ANNA BARRERA Rep #: [id number] : 1940 73 From: Stephanie Schilling Referring [...] patient has plateaued and is discharged. Stephanie Schilling, OTR/L T: NTS JOB: [id number] <Electronically signed by Stephanie Schilling > 11/12/13 [...] 0.00 cm Results Date Description Value Details 01-Epl-365064:26 TSH (THYROID STIMULATING Comments: PATIENT NOT FASTINGPERFORMED BY: [facility], [facility] [id number] HORMONE) (81218) TSH 0.076 {uIU/mL} (Abnormal) Range: 0.450-4.500 68-Tvn-826622:31 T3, FREE (TRIDOTHYRONINE) (80121) Comments: PATIENT NOT FASTINGPERFORMED BY: [facility] Medical CenterQsxiuh0903 [facility] [id number] Triiodothyronine (T3), Free 3.1 pg/mL (Normal) Range: 2.0-4.4 :31 T4, FREE (THYROXINE) (17755) Comments: PATIENT NOT FASTINGPERFORMED BY: [facility]6370 [facility] [id number] T4,Free(Direct) 2.14 ng/dL (Abnormal) Range: 0.82-1.77 04-Bob-837179:31 TSH (THYROID STIMULATING Comments: PATIENT NOT FASTINGPERFORMED BY: [facility] Jnpsay8697 [facility] [place] [id number] HORMONE) (10075) TSH 0.058 {uIU/mL} (Abnormal) Range: 0.450-4.500 :52 CALCIFEDIOL (77845) Comments: PATIENT NOT FASTINGPERFORMED BY: [facility] Kvklfa2988 [facility] [place] [id number] Vitamin D, 25-Hydroxy 20.8 ng/mL (Abnormal) Range: 30.0-100.0 Comments: Vitamin D deficiency has been defined by the Hunter of[facility] and an Endocrine Society practice guideline as alevel of serum 25-OH vitamin D less than 20 ng/mL (1,2).The Endocrine Society went on to further define vitamin Dinsufficiency as a level between 21 and 29 ng/mL (2).1. IOM (Hunter of Medicine). 2010. Dietary reference intakes for calcium and D. [place]: The National Academies Press.2. Ham MF, Alvino NC, Ileana AYALA, et al. Evaluation, treatment, and prevention of vitamin D deficiency: an Endocrine Society clinical practice guideline. JCEM. 2010; 96(7):1911-30. 45-Gqe-325317:52 MICROALBUMIN: CREATININE RATIO Comments: PATIENT NOT FASTINGPERFORMED BY: [facility] Zztlfw3015 [facility] [id number] (66051) AND (50517) Alb/Creat Ratio <22.6 {mg/g_creat} (Normal) Range: 0.0-30.0 Albumin, Urine <3.0 ug/mL (Normal) Creatinine, Urine 13.3 mg/dL (Normal) :52 METABOLIC PANEL, COMPREHENSIVE Comments: PATIENT NOT FASTINGPERFORMED BY: [facility] Rinoqr1447 [facility] [place] [id number] (81794) ALT (SGPT) 12 [iU]/L (Normal) Range: 0-32 [...] 8-27 Glucose 86 mg/dL (Normal) Range: 65-99 82-Dwz-844709:52 CBC W/AUTO DIFF WBC (97652) Comments: PATIENT NOT FASTINGPERFORMED BY: [facility] Nvawnp0333 [facility] [id number] Immature Grans (Abs) 0.0 {x10E3/uL} (Normal) Range: [...] 4.9 {x10E3/uL} (Normal) Range: 3.4-10.8 :52 TSH (85092) Comments: PATIENT NOT FASTINGPERFORMED BY: [facility]6370 [facility] [id number] TSH 0.032 {uIU/mL} (Abnormal) Range: 0.450-4.500 :52 T4, FREE (THYROXINE) (04153) Comments: PATIENT NOT FASTINGPERFORMED BY: [facility]6370 [facility] [id number] T4,Free(Direct) 2.26 ng/dL (Abnormal) Range: 0.82-1.77 :52 T3, FREE (TRIDOTHYRONINE) (64812) Comments: PATIENT NOT FASTINGPERFORMED BY: [facility]6370 [facility] [id number] Triiodothyronine,Free,Serum 3.6 pg/mL (Normal) Range: 2.0-4.4 36-Gnq-022369:50 Urinalysis, Complete Comments: Order Date: 09/08/17How was Urine Obtained? PRODUCTION SUPPORT SPECIALIST TO [facility] [address] [place], [id number] MUCUS, URINE 0 SEEN {/hpf} (Normal) BACTERIA [...] (Normal) CLARITY Clear (Normal) COLOR Straw (Normal) 07-Xcv-857924:20 CBC W/Diff, Automated Comments: [facility] Jr[address]kp68[address] [place], [place], [address] PATH REV October (Normal) Absolute Lymph 0.49 [...] 4.2-5.4 WBC 2.9 K/mm3 (Abnormal) Range: 4.4-11.0 45-Ylj-466873:20 Comprehensive Metabolic Profil Comments: 'TROP' Serial specimen #1, #2, #3, or #4: [address] [place] [address] [address] [place], [place], [address] GAP 5 (Normal) Range: 5-15 CO2 31.0 mmol/L (Normal) Range: 21.0-32.0 CL 102 mmol/L (Normal) Range: 98-107 K 3.6 mmol/L (Normal) Range: 3.5-5.1 NA 138 mmol/L (Normal) Range: 136-145 T BILI 0.40 mg/dL (Normal) Range: 0.20-1.00 ALT 88 U/L (Abnormal) Range: 13-56 Comments: Please note revised ALT reference range fxymtysjn75/28/2018. ALK P 95 U/L (Normal) Range: 45-117 [...] A.D.A. criteria.Please note revised GLUCOSE reference range uylsiqgej36/02/2018. 23-Kno-166250:20 Lipase Comments: 'TROP' Serial specimen #1, #2, #3, or #4: [address] [place] [address] [place], [place], [address] LIPASE 389 U/L (Normal) Range: 73-393 30-Wby-810474:20 Troponin-I Comments: 'TROP' Serial specimen #1, #2, #3, or #4: [address] [place] [address] [place], [place], [id number] TROPONIN-I < 0.02 ng/mL (Normal) Comments: TROPONIN-I EXPECTED VALUES <0.05 NEGATIVE 0.06 - 0.59 AT RISK OF MS > OR = 0.60 SUGGEST MS 91-Jju-38828:50 Basic Metabolic Profile (BMP) Comments: [facility] [address] [place], [place], [address] GAP 9 (Normal) Range: 5-15 CO2 24.0 [...] 7-18 GLU 100 mg/dL (Normal) Range: 70-110 27-Xju-20160:50 CBC W/Diff, Automated Comments: [facility] [address] [place], [place], [address] SMEAR COMMENT SCANNED (Normal) Absolute Lymph 0.40 [...] 22-Jun-2017 BREAST MASTECTOMY (CHOOSE See Note Comments: [facility] [address] [place], [place], [address] 7:15 SIDE (Normal) Comments: Patient: ANNA BARRERA : 1940 (77/F) Acct Num: [id number] Phys: Shaina ESTEBAN,Josh Unit Num: [id number] Loc: [facility] Specimen: [id number] Received: 06/22/17936 Spec Type: B [...] node measures 3.5 cm in greatest dimension. Superintendent Of Generation sections are subm itted as follows: 1 [...] superior, inferior and posteri or margin, 15-17 dental sales representative sections from the other areas, 18 multiple lymph nodes, 19-21 each cassette containing one bisected lymph node, 22 two lymph nodes, 23 AND 24 one lymph node, 2 5 AND 26 one lymph node. / SJ:rg 06/23/17 TC:0 CPT: 46960 HEADER OPERATION: Left modified radical mastectomy PRE-OP [...] previously performed on section of tumo r (U96-6928 / LO66-686). 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 PATHOLOGIC STAGE: p T1a(y) pN0 Mx The above summary is in compliance with College of [place] Pathology (CAP) Cancer Protocols Checklist and [place] Joint Committee on Cancer (AJCC), Staging Manual, 7th Ed. SJ:blanco 06/26/17 Signed Young Malcolm 06/26/17 <signature on file> 22-Jun-2017 IMMUNOHISTOCHEMISTRY See Note Comments: [place] [address] [place], [place], [id number] 0:00 (Normal) Comments: Patient: ANNA BARRERA : 1940 (77/F) Acct Num: [id number] Phys: Shaina ESTEBAN,Josh Unit Num: [id number] Loc: [facility] Specimen: [id number] Received: 06/26/17 - 1201 Spec Type: IMMUNO TISSUES TISSUES: Left breast, NOS SPECIMEN INFORMATION: Tissue Source: Left breast and axillary contents Clinical Info: Left breast cancer Specimen Number: [id number] #6 AND 24 CPT code: 48009, 70543 x3 METHODOLOGY: Deparaffinized sections of prefer/formalin-fixed tissue [...] developed and their performance characteristics determined by [facility]. They may not have been [...] the above diagnosis. IDC:AM PHYSICIAN AND INSTITUTION [address] [address] Signed Young Malcolm 06/27/17 <signature on file> 77-Hqy-12004:57 Basic Metabolic Profile (BMP) Comments: [facility] [address] [place] [address], [address] GAP 6 (Normal) Range: 5-15 CO2 31.0 [...] :57 CBC-Complete Blood Cnt No Diff Comments: [facility] [address] [facility] [address] [place], [place], [id number] MPV 9.5 fL (Normal) Range: 6.2-12.0 PLT [...] 4.4-11.0 :57 Thyroid Stim Hormone (TSH) Comments: [facility] [address] [place], [address] TSH 0.26 {uIU/mL} (Abnormal) Range: 0.358-3.74 30-Ssw-190667:08 Basic Metabolic Profile (BMP) Comments: [facility] [address] [place], [place], [address] GAP 7 (Normal) Range: 5-15 CO2 27.0 [...] 7-18 GLU 108 mg/dL (Normal) Range: 70-110 69-Umg-837678:30 Culture, Sputum Comments: [facility] Qfzsamydnc4[address] [facility] [address] [place], [place], [address] CUSP See Note (Normal) Comments: Gram StainAcceptable Specimen? Yes (<25 Epithelial cells per/lpf) Gram Stain 1+ White Blood Cells No Epithelial cells 2+ Gram positive cocci in clusters Resp. CultureMixed normal respirat ory anita. No Haemophilus, Streptococcus pneumoniae, beta-hemolytic Streptococcus or Staphylococcus aureus isolated. ORGANISM 1: YeastAmount Growth Rare 68-Jsh-137361:00 Culture, Sputum Comments: [facility] [address] [place], [place], [address] CUSP See Note Comments: Gram StainAcceptable Specimen? [...] <=20 S(NF) indicates non-formulary veena g at [facility]. Approval by Infectious Disease Specialist required before non-formulary drugs may be ordered and/or dispensed. BREAST BIOPSY (CHOOSE SITE) See Note Comments: [facility] [address] [place], [address] 716:06 (Normal) Comments: Patient: ANNA BARRERA : 1940 (76/F) Acct Num: [id number] Phys: Ceferino Morales MD Unit Num: [id number] Loc: [facility] Specimen: [id number] Received: 01/18/17 - 1024 Spe c Type: BREAST BX TISSUES TISSUES: COMMENT Immunohistochemistry ([id number]) supports the above diagnosis. 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 Case is reviewed in consultation with Dr. Iabrra of [employer]. The complete consultative report is viewable in [...] intwo cassettes. / AM:blanco 01/18/17 TC:0 CPT: 31949 HEADER OPERATION: Left breast core biopsy PRE-OP DIAGNOSIS: Breast cancer TISSUE SUBMITTED: Left breast core biopsy ISCHEMIC TIME: 18 minutes FIXATION TIME: 17 hours MICROSCOPIC DESCRIPTION Sli diana are reviewed. MICROSCOPIC DIAGNOSIS Left breast, core biopsy: Poorly differentiated ductal carcinoma. AM:blanco 01/19/17 Signed Deo Francisih 01/30/17 <signature on file> IMMUNOHISTOCHEMISTRY See Note Comments: [facility] [address] [place], [place], [phone] 70:00 (Normal) Comments: Patient: ANNA BARRERA : 1940 (76/F) Acct Num: [id number] Phys: Ceferino Morales MD Unit Num: [id number] Loc: [facility] Specimen: [id number] Received: 01/19/17 - 103 [facility] c Type: IMMUNO TISSUES TISSUES: SPECIMEN INFORMATION: Tissue Source: Left breast core biopsy Clinical Info: Breast cancer Specimen Number: [id number] #1 CPT code: 92645, 12283 x22, 36642 x3 METHODOLOGY: Deparaffinized sections of prefer/formalin- fixed [...] ER (clone 6F11) 38%, weak to moderate CT (clone 16/1E2) 0% Her-2Neu (clone CB11) 0 The prognostic test for HER2 is performed on formalin-fixed paraffin embedded tissue. A 3+ (positive) staining pattern is defined as intense, homogeneous, complete, circumferential membran ous staining in >10% of contiguous tumor cells. A similar weak (2+) staining pattern is interpreted as equivocal. JENNA follow-up testing is recommended for all equivocal cases. Positivity/negativity for ER/CT is reported if > or < 1% of the tumor cells are immuno- reactive, respectively. The ASCO/CAP criteria is used for scoring. Reference: Journal of Clinical Oncology, 2013; 31:0961-2585 AN D 2010; 16:3211-2767. Duration of fixation: 17 Hrs; Sample Adequate: Yes. These assays have not been validated on decalcified tissues. Results should beinterpreted with caution given the likelihoo d of false negativity on decalcifiedspecimens. These tests were developed and their performance characteristics determined by [facility]. They may not have been [...] reviewed in consultation with Dr. Ibarra of [employer]. Complete consultative report is viewable in patient's EMR Case has been reviewed in consultation with Dr. Malcolm who concurs with the abovediagnosis. IDC: PHYSICIAN AND INSTITUTION [address] [address] Signed Deo Kayla 01/30/17 <signature on file> 64-Jle-64247:04 Basic Metabolic Profile (BMP) Comments: [facility] [address] [place], [place], [address] GAP 6 (Normal) Range: 5-15 CO2 30.0 [...] <126 mg/dLsuggests IMPAIRED HOMEOSTASIS per A.D.A. criteria. 87-Fhn-58952:04 CBC W/Diff, Automated Comments: [facility] [address]qkjchx3165 [facility]. [place], [place], [id number] Absolute Lymph 1.46 {X10_3/ul} (Normal) Range: 0.83-4.51 [...] Range: 4.4-11.0 :04 Partial Thromboplast Time Comments: [facility] [address] [place], [place], [phone] PTT 26.4 s (Normal) Range: 24.1-36.2 :04 Prothrombin Time w/INR Comments: [facility] [address] [place] [place], [address] INR 1.0 (Normal) PROTIME 12.7 s (Normal) Range: 11.7-14.9 :05 CBC W/Diff, Automated Comments: [facility] [address] [place], [place], [address] Absolute Lymph 2.04 {X10_3/ul} (Normal) Range: 0.83-4.51 [...] 4.2-5.4 WBC 7.8 K/mm3 (Normal) Range: 4.4-11.0 37-Lpm-26119:05 Comprehensive Metabolic Profil Comments: [facility] [address] [place], [place], [address] GAP 7 (Normal) Range: 5-15 CO2 30.0 [...] (Normal) Range: 70-110 :05 Lipid Profile Comments: [facility] [address] [place], [place], [address] VLDL 10 mg/dL (Normal) Range: 5-40 LDL [...] High Risk :05 Microalb:Creat Ratio,Random UR Comments: [facility] [address] [place], [place], [address] MALB:CREAT 8.6 {mg/g_CRE} (Normal) MICROALBUMIN,UR 5.8 mg/L (Normal) UR CREAT 67.00 mg/dL (Normal) :05 Thyroid Stim Hormone (TSH) Comments: [facility] [address] [place], [address] TSH 0.65 {uIU/mL} (Normal) Range: 0.358-3.74 :05 Urinalysis, Routine (Dipstick) Comments: How was Urine Obtained? CLEAN [facility] [address] [place], [address] LEUK ESTERASE 100 /ul (Abnormal) OCCULT BLOOD-UR 25 /ul (Abnormal) NITRITE UR Negative (Normal) UROBILI Normal mg/dL (Normal) PROT DIPSTX Negative mg/dL (Normal) pH UR 6.5 (Normal) Range: 5.0 - 8.0 SP.GR. DIPSTX 1.010 (Normal) Range: 1.002-1.030 KETONE UR Negative mg/dL (Normal) BILIRUBIN URINE Negative mg/dL (Normal) GLUCOSE, UR Normal mg/dL (Normal) CLARITY Clear (Normal) COLOR Yellow (Normal) 56-Mee-227761:08 TSH (12146) Comments: PATIENT NOT FASTINGPERFORMED BY: [facility] Iwdnog0008 [facility] [id number] Information: [id number] TSH 1.080 {uIU/mL} (Normal) Range: 0.450-4.500 21-Nov-20146:06 CBC W/Diff, Automated Comments: Test performed at:[facility] Xyogxybecn14[address] [facility] [place] [address] Absolute Lymph 2.22 {X10_3/ul} (Normal) [...] :06 Comprehensive Metabolic Profil Comments: Test performed at:[facility] [address] [place] [address] GAP 4 (Abnormal) Range: 5-15 CO2 31.0 [...] 70-110 :06 Lipid Profile Comments: Test performed at:[facility] [address] [place] [address] VLDL 11 mg/dL (Normal) Range: 5-40 LDL [...] :06 Microalb:Creat Ratio,Random UR Comments: Test performed at:[facility] [address] [place] [address] MALB:CREAT 21.7 {mg/g_CRE} (Normal) MICROALBUMIN,UR 7.8 mg/L (Normal) UR CREAT 35.8 mg/dL (Normal) :06 Thyroid Stim Hormone (TSH) Comments: Test performed at:[facility] [address] [place] [address] TSH 0.46 {uIU/mL} (Normal) Range: 0.358-3.74 :06 Urinalysis, Routine (Dipstick) Comments: How was Urine Obtained? CLEAN CATCHTest performed at:[facility] [address] [place] [id number] ; will review at 11/26 appt LEUK [...] :06 Vitamin D,25 Hydroxy Comments: Test performed at:[facility] [address] [place] [address] Vitamin D 25-OH 23.4 ng/mL (Normal) Comments: Vitamin D 25(OH) Status Range Deficiency <20 ng/mL (50nmol/L) Insuffciency 20 - 30 ng/mL (50 - 75 nmol/L) Sufficiency 30 - 100 ng/mL (75 - 250 nmol/L) Toxicity >100 ng/mL (>250 nmol/L) 17-Sep-20139:09 TSH (18566) Comments: PATIENT NOT FASTINGPERFORMED BY: [facility] CenterDwdqdp5866[address] [place] [address] [id number] Information: [id number], [id number] TSH 1.860 {uIU/mL} (Normal) Range: 0.450-4.500 65-Hev-545653:27 TSH (30443) Comments: PATIENT NOT FASTINGPERFORMED BY: [facility] Zsxeou1012 [facility] [id number] Information: [id number] TSH 1.760 {uIU/mL} (Normal) Range: 0.450-4.500 23-Sep-20116:05 CBCMD RBCM NORM C+C {NORMAL} (Normal) PE [...] 4.2-5.4 WBC 6.4 K/mm3 (Normal) Range: 4.4-11.0 :05 CMP GAP 7 (Normal) Range: 5-15 CO2 [...] 10.9 mg/L (Normal) CREU 52.4 mg/dL (Normal) : TSH 1.80 {uIU/mL} (Normal) Range: 0.358-3.74 :05 [...] D deficiency has been defined by the Hunter ofMedicine and an Endocrine Society practice guideline as alevel of serum 25-OH vitamin D less than 20 ng/mL (1,2).The Endocrine Society went on to further define vitamin Dinsufficiency as a level between 21 and 29 ng/mL (2).1. IOM (Hunter of Medicine). 2010. Dietary reference intakes for calcium and D. [place]: The National Academies Press.2. Ham MF, Alvino NC, Ileana AYALA, et al. Evaluation, treatment, and prevention of vitamin D deficiency: an Endocrine Society clinical practice guideline. JCEM. 2010; 96(7): 1911-30.Performed at: [address] [id number] Director: Stephanie Young MD, Phone: [phone] :43 TSH (20793) Comments: PATIENT NOT FASTINGPERFORMED BY: [facility] Zlvxut1119 [address] [facility] [place] [id number] Information: [id number] TSH 2.940 {uIU/mL} (Normal) Range: 0.450-4.500 :43 CALCIFIDIOL (56218) VIT D 25 Comments: PATIENT NOT FASTINGPERFORMED BY: CB [facility] Nxyoyy4705 [address] [facility] [place] [id number] Vitamin D, 25-Hydroxy 24.5 ng/mL (Abnormal) Range: 32.0-100.0 Comments: Recent studies consider the lower limit of 32.0 ng/mL to be athreshold for optimal health.Juarez . J Nutr. 2004;135(2):317-22. 02-Rzx-150794:08 PARATHORMONE (84929) Comments: PATIENT NOT FASTINGPERFORMED BY: [facility] Eestjb5080 Mor[address] [facility] [place] [id number] Information: [id number] PTH, Intact 47 pg/mL (Normal) Range: 15-65 :06 Microscopic Examination Comments: PATIENT NOT FASTINGPERFORMED BY: [facility] Xucmbj8973 [address] [facility] [place] [id number] Bacteria Few (Normal) Mucus Threads Present (Normal) Epithelial Cells (non renal) None seen {/hpf} (Normal) Range: 0 - 10 RBC None seen {/hpf} (Normal) Range: 0 - 3 WBC 0-5 {/hpf} (Normal) Range: 0 - 5 :06 Vitamin D Hydroxy (12816) Comments: PATIENT NOT FASTINGPERFORMED BY: [facility] Fmxcbq3504 [address] [facility] [place] [id number] Vitamin D, 25-Hydroxy 27.0 ng/mL (Abnormal) Range: 32.0-100.0 Comments: Recent studies consider the lower limit of 32.0 ng/mL to be athreshold for optimal health.Juarez . J Nutr. 2004;135(2):317-22. :06 TSH (53147) Comments: PATIENT NOT FASTINGPERFORMED BY: [facility]6370 [facility] [id number] TSH 4.620 {uIU/mL} (Abnormal) Range: 0.450-4.500 :06 URINALYSIS, W/ MICRO (58664) Comments: PATIENT NOT FASTINGPERFORMED BY: [facility]6370 [facility] [id number] Microscopic Examination See below: (Normal) Microscopic Examination MICRON (Normal) Comments: Microscopic follows if indicated. Nitrite, Urine Negative (Normal) Bilirubin Negative (Normal) Ketones Negative (Normal) Occult Blood Negative (Normal) Urobilinogen,Semi-Qn 0.2 mg/dL (Normal) Range: 0.0-1.9 Glucose Negative (Normal) Protein Negative (Normal) Appearance Clear (Normal) Urine-Color Yellow (Normal) WBC Esterase Negative (Normal) pH 6.5 (Normal) Range: 5.0-7.5 Specific Mclean 1.007 (Normal) Range: 1.005-1.030 :06 MICROALBUMIN: CREATININE RATIO Comments: PATIENT NOT FASTINGPERFORMED BY: [facility]6370 [facility] [id number] (70050) AND (15149) Microalb/Creat Ratio 13.5 {mg/g_creat} (Normal) Range: 0.0-30.0 Creatinine, Urine 19.3 mg/dL (Normal) Range: 15.0-278.0 Microalbumin, Urine 2.6 ug/mL (Normal) Range: 0.0-17.0 :06 METABOLIC PANEL, COMPREHENSIVE Comments: PATIENT NOT FASTINGPERFORMED BY: [facility]6370 [facility] [id number] (39209) Alkaline Phosphatase, S 81 [iU]/L (Normal) Range: [...] MANUAL DIFF Comments: PATIENT NOT FASTINGPERFORMED BY: [facility] CenterXmgvkw5981 [facility] [id number] Information: [id number] (56095) Immature Grans (Abs) 0.0 {x10E3/uL} (Normal) Range: [...] 3.80-5.10 WBC 6.3 {x10E3/uL} (Normal) Range: 4.0-10.5 51-Ope-61073:05 CBCD,SMEAR DIFF EOS 6 % (Abnormal) Range: [...] CHOL 191 mg/dL (Normal) Comments: <200 mg/dL Xuqqnicei205-881 mg/dL Borderline>240 mg/dL High Risk HDL 57 [...] {uIU/mL} (Normal) Range: 0.358-3.74 :05 VIT D,25 22194 29.2 ng/mL (Abnormal) Range: 32.0-100.0 Comments: Recent studies consider the lower limit of 32.0 ng/mL to daren threshold for optimal health.Larry BARRERA. J Nutr. 2004;135(2):317-22.Performed at: - [facility] [id number] Director: Caprice Woods MD :58 URINE VENICE CULTURE-DESMOND COL Comments: PATIENT NOT FASTINGClinical Information: SRC:UR TOMAS [id number] PERFORMED BY: [facility] [id number] [facility] [id number] COUNT ([id number]) Result 1 BETAGB (Normal) Comments: Beta hemolytic Streptococcus, group B10,000- 25,000 colony forming units per mLPenicillin continues to be the drug of choice for infectionscaused by beta hemolytic streptococci in groups A,B,C and G.No p enicillin resistance has been described among theseorganisms and surveillance for emerging resistance is notrecommended. (BLANCA Rosenbaum. Clinical Microbiology Newsletter,1993; ALEJANDRO Santamaria et al. Diagn [facility] Microbiology andInfectious Disease, November,.) Urine Final report (Normal) Culture,Comprehensive :59 Urinalysis, Office ([id number]) UA - BILIRUBIN Negative (Normal) UA - [...] TIMED TSH 3.448 {uIU/mL} Comments: PERFORMED BY: [facility] [id number] [facility] [id number] 5:11 (Normal) Range: 0.450-4.500 TSH 4.26 {uIU/mL} [...] breast cancer Metastatic breast cancer : Reviewed [employer] T[employer] Letter Indication: Metastatic breast cancer Benign essential hypertension : Continue Current Prescription(s) Indication: Benign essential hypertension Hypercholesterolemia : Cholesterol mgmt Indication: Hypercholesterolemia Benign essential hypertension : HTN/CAD Red Flags Indication: Benign essential hypertension Metastatic breast cancer : Reviewed Lab Indication: Metastatic breast cancer Metastatic breast cancer : Reviewed Diagnostic Tests Indication: Metastatic breast cancer Metastatic breast cancer : Reviewed [employer] Tender Letter Indication: Metastatic breast cancer Non-smoker : [...] of right ankle, initial encounter : Reviewed [employer] Letter Indication: Sprain of right ankle, initial encounter Metastatic breast cancer : Reviewed [employer] Letter Indication: Metastatic breast cancer Benign essential [...] Osteoporosis Planned Observations TSH (THYROID STIMULATING HORMONE) ([id number])Indication: Hypothyroidism, unspecified On: 94-Alc-488503:32 Request Comments: re check in 6 weeks TSH (THYROID STIMULATING HORMONE) (85862)Indication: Hypothyroidism, unspecified On: 67-Gkf-356316:36 Request T4, FREE (THYROXINE) ([id number])Indication: Hypothyroidism, unspecified On: 07-Pht-417008:33 Request T3, FREE (TRIDOTHYRONINE) (34351)Indication: Hypothyroidism, unspecified On: 72-Ymu-245519:33 Request CALCIFIDIOL (38724) VIT D 25Indication: Vitamin D deficiency, unspecified On: 32-Mkt-229524:47 Request TSH ([id number])Indication: Hypothyroidism, unspecified On: :46 Request URINALYSIS, W/ MICRO ([id number])Indication: Benign essential hypertension On: :46 Request MICROALBUMIN: CREATININE RATIO ([id number]) AND ([id number])Indication: Benign essential hypertension On: :46 Request METABOLIC PANEL, COMPREHENSIVE ([id number])Indication: Benign essential hypertension On: :46 Request LIPID PANEL ([id number])Indication: Hypercholesterolemia On: :46 Request CBC W/AUTO DIFF WBC ([id number])Indication: Benign essential hypertension On: :46 Request URINE VENICE CULTURE-DESMOND COL COUNT ([id number])Indication: UTI symptoms On: 97-Pii-830965:31 Request LIPID PANEL ([id number])Indication: Hypercholesterolemia On: 17-Aug-20169:55 Request Comments: November 2016 MICROALBUMIN: CREATININE RATIO ([id number]) AND ([id number])Indication: Benign essential hypertension On: :54 Request Comments: November 2016 URINALYSIS ([id number])Indication: Benign essential hypertension On: :54 Request Comments: November 2016 CBC, Platelets & Auto Diff ([id number])Indication: Benign essential hypertension On: :54 Request Comments: November 2016 Metabolic Panel, Comprehensive ([id number])Indication: Benign essential hypertension On: :54 Request Comments: November 2016 TSH ([id number])Indication: Hypothyroidism, unspecified On: 17-Aug-20169:53 Request Comments: due in November 2016 Vitamin D Hydroxy ([id number])Indication: Vitamin D deficiency, unspecified On: 51-Emw-681979:01 Request URINALYSIS, W/ MICRO ([id number])Indication: Benign essential hypertension On: 87-Cqg-342961:00 Request MICROALBUMIN: CREATININE RATIO ([id number]) AND ([id number])Indication: Benign essential hypertension On: 11-Fjc-048812:00 Request METABOLIC PANEL, COMPREHENSIVE ([id number])Indication: Benign essential hypertension On: 02-Gbp-826197:00 Request LIPID PANEL ([id number])Indication: Hypercholesterolemia On: 64-Krm-270319:00 Request CBC WITH MANUAL DIFF ([id number])Indication: Benign essential hypertension On: 66-Kcb-219480:00 Request TSH ([id number])Indication: Hypothyroidism, unspecified On: 62-Vcg-138603:00 Request Vitamin D Hydroxy ([id number])Indication: Osteoporosis On: :44 Request URINALYSIS, W/ MICRO ([id number])Indication: Benign essential hypertension On: :41 Request MICROALBUMIN: CREATININE RATIO ([id number]) AND ([id number])Indication: Benign essential hypertension On: :41 Request METABOLIC PANEL, COMPREHENSIVE ([id number])Indication: Benign essential hypertension On: :41 Request LIPID PANEL ([id number])Indication: Benign essential hypertension On: :41 Request CBC WITH MANUAL DIFF ([id number])Indication: Benign essential hypertension On: :41 Request TSH ([id number])Indication: Hypothyroidism, unspecified On: 40-Wmx-162607:40 Request TSH ([id number])Indication: Hypothyroidism, unspecified On: 19-Jfq-770453:09 Request LIPID PANEL ([id number])Indication: Hypercholesterolemia On: 7-Syo-322900:12 Request METABOLIC PANEL, COMPREHENSIVE ([id number])Indication: Hypercholesterolemia On: 4-Gvp-394928:12 Request TSH ([id number])Indication: Hypothyroidism, unspecified On: 5-Hqr-504143:12 Request Planned Procedures ELECTROCARDIOGRAM, COMPLETE (ECG) On: 06-Dec-2017 Intent ([id number])By: Tayla Espinal DO Comments: nsr no acute chg DO, Tayla Velez DO PNEUM VAC ADLT/IMUMNOSPR, SBC/INTRM On: 24-Mar-2017 Intent ([id number])By: Tayla Espinal DO Comments: lot:[id number]:[id number]:IM left deltoid dose:0.5ml given by:hayley Us LPN DO, Kathleen Fearon DO, Kathleen ELECTROCARDIOGRAM, COMPLETE (ECG) On: 04-Jan-2017 Intent ([id number])By: Tayla Espinal DO Comments: nsr no acute cgh DO, Tayla Velez DO PHYSICAL THERAPY EVALUATION ([id number])By: On: 11-May-2015 Intent Elizabeth Villanueva CNP Radiology - Knee - RightBy: Kay MUÑOZ, On: 11-May-2015 Intent Josefa MAMMOGRAM, SCREENING, BOTH BREAST On: 22-Aug-2014 Intent ([id number])By: Tayla Espinal DO Comments: send results to Tayla Matthews DO, DO, Kathleen DEXA SCAN AXIAL SKELETON ([id number])By: On: 22-Aug-2014 Intent Tayla Espinal DO, DO, Kathleen Comments: send results to Tayla Rondon DO Eprescribed prescriptions ([id number])By: On: 13-Sep-2012 Intent Lilian Richardson LPN Inhaler Demonstration ([id number])By: Kay On: 04-Jul-2012 Intent Elizabeth MUÑOZ Inhaler Demonstration ([id number])By: Kay On: 04-Jul-2012 Intent Elizabeth MUÑOZ Aerosol Treatment ([id number])By: Kay MUÑOZ, On: 04-Jul-2012 Intent Josefa Eprescribed prescriptions ([id number])By: On: 27-May-2011 Intent Kay MUÑOZ Josefa EKG ([id number])By: Tayla Espinal DO On: 23-Sep-2010 Intent Tayla Espinal DO, DO, Kathleen Comments: nsr no acute chg Eprescribed prescriptions ([id number])By: On: 23-Sep-2010 Intent Tayla Espinal DO, DO, Kathleen Fearon DO, Kathleen EKG ([id number])By: Tayla Espinal DO On: 01-Jun-2009 Intent Tayla Espinal DO, DO, Kathleen Comments: nsr no acute changes SPECIMEN HANDLING/TRANSPORT ([id number])By: On: 28-Nov-2008 Intent Keren Wilde LPN Radiology - ChestBy: Adilene ESTEBAN, Justyna Rodgers On: 20-May-2008 Intent Comments: if not better [...] Advance Directives Name Dates Details Immunization Registry [place] - Effective on 03/24/2017. Effective: 24-Mar-2017 Expiration [...]
--- OUTSIDE RECORDS SUMMARY | 2018-07-15 17:17 | XMS RPT_ITS | Continuity of Care Document ---
:1940 Author Organization [facility] Address 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, 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) Status: Active Fall, accidental (W19.XXXA, E888.9) Status: Active Fracture Of Radius Comments: left 04/26 Status: Active Glaucoma (H40.9, 365.9) Status: Active Hypercholesterolemia (E78.00, 272.0) Status: Active Hypothyroidism, unspecified (E03.9, 244.9) Status: Active Knee pain, acute, right (M25.561, 719.46) Comments: using antiinflammation Status: Active Left ankle pain (M25.572, 719.47) Status: Active Left ankle swelling (M25.472, 719.07) Status: Active Metastatic breast cancer (C50.919, 174.9) [...] 100 MCG Oral Tablet 1 (one) Tablet Tablet daily for 0 days Quantity: 30 {Tablet} Refills: 3 Ordered:18-May-2018 Bertha Espinal DO, DO, KathleenFearon DO, Kathleen Start : 18-May-2018 Active Metoprolol Tartrate 50 MG Oral Tablet 1 (one) Tablet bid for 0 days Quantity: 180 {Tablet} Refills: 3 Ordered:28-Aug-2017 Bertha Espinal DO, DO, KathleenFearon DO, Kathleen Start : 28-Aug-2017 Active Omeprazole 20 MG [...] : 30-Mar-2017 End : 06-Dec-2017 Inactive DRISDOL, [id number] (Oral Capsule) 1 Capsule 2 X WEEK [...] days Quantity: 180 {Tablet} Refills: 0 Ordered:17-Aug-2016 Barbytania WANDAElizabeth Start : 17-Aug-2016 End : 17-Aug-2016 Inactive [...] Visit Report Result: Comments: See Note; NOTES: [facility] [address] [place] [address] OFFICE VISIT Date of Service: 11/07/17 MR#: [id number] Acct: [id number] Name: ANNA PRICE Rep #: [id number] : 1940 Provider: Stacey Pizano PA-C Age/Sex: 77/F Location: [facility] Status: Signed Intake Intake Visit Reasons: pain at mastectomy site 2017 Chief Comp laint: Encephalopathy Division Roadmaster Required: No Is patient in pain?: Yes [...] Surgical History Status post gamma knife treatment ([facility]) History of modified radical mastectomy of [...] was treated with Gamma Knife treatment at [facility]. Patient had a follow-up MRI of the brain a [facility] which demonstrated dramatic decrease in the [...] Visit Report Result: Comments: See Note; NOTES: [facility] [address] [place] [address] OFFICE VISIT Date of Service: 10/31/17 MR#: [id number] Acct: [id number] Name: ANNA PRICE Rep #: [id number] : 1940 Provider: Stacey Pizano PA-C Age/Sex: 77/F Location[facility] Status: Signed Intake Intake Visit Reasons: pain [...] was treated with Gamma Knife treatment at [facility]. Patient had a follow-up MRI of the brain at [facility] which demonstrated dramatic decrease in the [...] <Electronically signed by Stacey Pizano PA-C> Date Staecy magana Signature: Date (if applicable) CC: 25-Oct-2017 OT D/C Summary Result: Comments: See Note; NOTES: [facility] [address] [place] [address]. [address] [place] [address] Fax REHABILITATION SERVICES DIS CHARGE SUMMARY MR#: [id number] Acct: [id number] Name: ANNA BARRERA Rep #: [id number] : 1940 77 From: Stephanie Schilling OTR/L, T Referring DrAlondra: Stacey Pizano PA-C Status: REG [...] % Improvement: 80 - Objective Objective/Function: right ruffling hemmer automatic 45#. right ruffling hemmer automatic 45#. right lat. pinch 8# righ t [...] please fell free to call me at [phone]. Thank you for the referral of this patient. Sincerely, STALIN Cunningham/MARY Leigh <Electronically signed by Stephanie GANT/MARY Leigh> 10/25/17 1053 CC: Stacey bowie PA-C; Tayla Espinal DO DOTTY Signed 16-Oct-2017 OT General Evaluation Result: Comments: See Note; NOTES: [facility] [address] [place] [address] Fax REHABILITATION SERVICES INI TIAL EVALUATION MR#: [id number] Acct: [id number] Name: CATALINAENANNA HO Rep #: [id number] : 1940 77 From: Stephanie GANT/Lu, CHT Referring DrAlondra: Stacey Pizano PAFabián Status: REG RCR In surance: KRISTEL Pike [...] Left WNL - Strength Shoulder: R/L 4/5 Blind Escort: right 45# left 45# Lateral Pinch: right [...] to be FAXED BACK to us at [phone] for Medicare purposes. Please let me know [...] Summary (1) Result: Comments: See Note; NOTES: [facility] [address] [place] [address]. [address] [place] [address] Fax REHABILITATION SERVICES DISCHAR GE SUMMARY MR#: [id number] Acct: [id number] Name: ANNA BARRERA Rep #: [id number] : 1940 77 From: Amelie Rodriguez DPNaomi Referring Dr.: Stacey Pizano PA-C Status: REG RCR Insurance: [employer] MEDICARE A ONLY HP - PT D/C [...] Met - Plan Plan: Discharge to [facility] through [facility] - D/C Information If there are questions or concerns regarding this patient's physical therapy, please feel free to call me at [phone]. Thank you for the referral of this patient. Sincerely, Amelie Rodriguez <Electronically signed by Amelie Rodriguez DPT> 10/10/17 1028 CC: Stacey Pizano PA-C; Tayla Espinal DO ELR Signed 05-Oct-2017 OT General Evaluation Result: Comments: See Note; NOTES: [facility] [address] [place], [place] [address] Fax REHABILITATION SERVICES INI TIAL EVALUATION MR#: [id number] Acct: [id number] Name: ANNA BARRERA Rep #: [id number] : 1940 77 From: Stephanie GANT/L, CHT Referring Dr.: Stacey Pizano PAGuyC Status: REG RCR In surance: [facility] Maria Treesain Date: MEDICARE A ONLY Patient's Visit Information ANNA BARRERA is a 77 year old F, referred to Occupational Therapy by Stacey Pizano, with a diagnosis of Masectomy. Josias e of Evaluation: 10/03/17 Occupational Therapist: Stephanie Schilling, SYEDAR/L, CHT - Subjective Subjective: Pt states she [...] Left WNL - Strength Shoulder: R/L 4/5 Blind Escort: right 45# left 45# Lateral Pinch: right [...] to be FAXED BACK to us at [phone] for Medicare purposes. Please let me know if there are questions or concerns regarding this plan of care. Vladimir peralta Signature: Date: <Electronically signed by Stephanie GANT/Lu, KULWANTT> 10/05/17 0934 CC: Stacey Pizano PA-C; Tayla Espinal DO MK Signed For Medicare only, by signing this I certify the plan of care. Physicians Signature Date 08-Sep-2017 Emergency Department Summary Result: Comments: See Note; NOTES: [facility] Medical Records Department [address] [place] [address] Emergency Department Summary 09/08/17 1630 MR#: [id number] Acct: [id number] Name: ANNA BARRERA Rep #: [id number] : 1940 77 From: Jose May MD PCP: Tayla Espinal DO Status: REG ER ADDENDUM by Srinivas Gabriel on 09/08/17 at 1756 Patient was endorsed to me by the [facility] physician with instructions to check on CT [...] 2. Delirium This note was generated with Livra Panelsation software. It may contain incorrect words, spelling, and punctuation that were not noted in review of the chart prior to signing ED Disposition - Plan for ED Patient: Chief Complaint: Nausea/Vomiting Referrals: Douglas Espinal, DO [Primary Care Provider] - What to do if you have Problems For any increased pain, shortness of breath, bleeding, nausea or vomiting, chest pain, or any unexpected problems, contact your Prima ry Care Provider. Call Doctors Registry ([phone]) or report to the closest Emergency Room. Call 911 if necessary. 09/08/17 1092 <Electronically signed by Jose May MD> Date ___ Jose May MD Cosigner Signature (If Indicated): Date CC: Tayla Espinal DO 08-Sep-2017 Emergency Department Summary Result: Comments: See Note; NOTES: [facility] Medical Records Department [address] [place] [address] Emergency Department Summary 09/08/17 1630 MR#: [id number] Acct: [id number] Name: ANNA BARRERA Rep #: [id number] : 1940 77 From: Jose May MD [...] 2. Delirium This note was generated with Care Team Connect dictation software. It may contain incorrect words, spelling, and punctuation that were not noted in review of the chart prior to signing ED Disposition - Plan for ED Patient: Chief Complaint: Nausea/Vomiting Referrals: Tayla Espinal DO [Primary Care Provider] - What to do if you have Problems For any increased pain, shortness of breath, bleeding, nausea or vomiting, chest pain, or any unexpected prob lems, contact your Primary Care Provider. Call Doctors Registry ([phone]) or report to the closest Emergency Room. Call 911 if necessary. 09/08/17 1712 <Electronically signed by Jose iglesias MD> Date Jose May MD Cosigner Signature (If Indicated): Date CC: Tayla Espinal DO 08-Sep-2017 Brain/Head without Contrast Result: Comments: See Note; NOTES: [facility] Imaging Services [address] [place] [address] Brain/Head without Contrast MR#: [id number] Acct: [id number] Name: ANNA BARRERA Rep #: [id number] : 1940 F 77 From: Nasrin Orta MD PCP: Tayla Espinal DO Status: REG ER Study: Brain/Head without Contrast Date of Exam: 09/08/17 Exam# [id number] Ordering Dr: Jose May STUDY: CT BRAIN [...] Orta MD at 17:11 EDT Tel Direct: [phone], Service support , CC: Jose May MD; Tayla Espinal DO Deep Fryer Assembler: Signed 08-Sep-2017 Chest 1 View (Portable) Result: Comments: See Note; NOTES: [facility] Imaging Services [address] [place] [address] Chest 1 View (Portable) MR#: [id number] Acct: [id number] Name: ANNA BARRERA Rep #: [id number] : 1940 F 77 From: Nasrin Orta MD PCP: Tayla Espinal DO Status: [facility] Study: Chest 1 View (Portable) Date of Exam: 09/08/17 Exam# [id number] Ordering Dr: Jose May MD STUD Y: [...] Orta MD at 17:17 EDT Tel Direct: [phone], Service s upport , CC: Jose May MD; Tayla Espinal DO Deep Fryer Assembler: Signed 08-Sep-2017 Abdomen/Pelvis W IV Cont ONLY Result: Comments: See Note; NOTES: [facility] Imaging Services [address] [place] [address] Abdomen/Pelvis W IV Cont ONLY MR#: [id number] Acct: [id number] Name: ANNA BARRERA Danika Magana ep #: [id number] : 1940 F 77 From: Terence Calero MD PCP: Tayla Espinal DO Status: REG ER Study: Abdomen/Pelvis W IV Cont ONLY Date of Exam: 09/08/17 Exam# [id number] Ordering Dr: Jose May MD STUDY: CT [...] CC: Jose May MD; Tayla Espinal DO Deep Fryer Assembler: Signed 23-Aug-2017 Surgery Visit Report Result: Comments: See Note; NOTES: [facility] [address] [place] [address] [place] [address] OFFICE VISIT Date of Service: 08/23/17 MR#: [id number] Acct: [id number] Name: ANNA BETANCOURT Rep #: [id number] : 1940 Provider: Stacey Garcia Age/Sex: 77/F Location: [facility] Status: Signed Intake Intake Visit Reasons: F/U MASTECTOMY/CEBUL Division Roadmaster Required: No Is patient in pain?: No [...] treated with Gamma Knife treatment at [facility] [place] . She will have a follow up [...] W/WO Contrast Result: Comments: See Note; NOTES: [facility] Imaging Services [address] [place] [address] Brain W/WO Contrast MR#: [id number] Acct: [id number] Name: ANNA BARRERA Rep #: [id number] : 1940 F 77 From: Glenn Taylor DO PCP: Tayla Espinal DO Status: REG CLI Study: Brain W/WO Contrast Date of Exam: 07/31/17 Exam# [id number] Ordering Dr: Ky Burkett DO STUDY: MR [...] lateral ventricle and with a 3 mm slke-ot-otwjz shift of the septum pellucidum (coronal T2 [...] surrounding vasogenic edema produ cing a mild aqvp-gx-rrhsr midline shift and mild mass effect, 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 2. Mild chronic white matter ischemic changes of the supratentorial brain and thong. 3. 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 4. No acute or evolving ischemic process. Electronically Signed: Glenn Taylor DO at 13:48 EST Tel , Service support , CC: Tayla Espinal DO; Ky Burkett DO Deep Fryer Assembler: Signed 24-Jul-2017 Inital Evaluation (1) - PT Result: Comments: See Note; NOTES: [facility] [facility] [address] [place] [address] Fax REHABILITATION SERVICES INITIAL EVALUATION MR#: [id number] Acct: [id number] Name: ANNA BARRERA Rep #: [id number] : 1940 77 From: Amelie Rodriguez DPT Referring Dr.: Stacey Pizano PA-C Status: REG R Insurance: [facility] MEDICARE A ONLY Patient's Visit Information [...] Paredes and Dr. Merritt. Sent her to [place]- which she lived in until Monday. Chemo 8x- CT scans- mets on the right lowe r lobe of the lung- Chest wall, fascia, muscle of the chest. Will have another scan at [facility] next monday. Does not have to [...] to be FAXED BACK to us at [phone] for Medicare purposes. Please let me know [...] Discharge Instruction Result: Comments: See Note; NOTES: [facility] Medical Records Department [address] [place] [address] Discharge Instruction 07/15/17 1045 MR#: [id number] Acct: [id number] Name: ANNA PEREZ Rep #: [id number] : 1940 77 From: Tre Mcguire DO [...] your Primary Care Provider. Call Doctors Registry ([phone] ) or report to the closest Emergency Room. Call 911 if necessary. 07/15/17 1047 <Electronically signed by Tre Mcguire DO> Date Tre wahl DO Cosigner Signature (If Indicated): Date CC: Taylajosiah Espinal 15-Jul-2017 Emergency Department Summary Result: Comments: See Note; NOTES: [facility] Medical Records Department [address] [place] [address] Emergency Department Summary 07/15/17 1042 MR#: [id number] Acct: [id number] Name: ANNA BARRERA Rep #: [id number] : 1940 77 From: Tre Mcguire DO PCP: Tayla Espinal DO Status: REG ER - ER Visit Summary Date of Service: 07/15/17 Chief Complaint: [Diarrhea] History of Present Illness: The patient is a 77 F [presents to the emergency department with symptoms of diarrhea that started this morning around 7 AM. Patient states she has had 3-4 watery stools. Patient is from [facility]. Patient denies any abdominal pain or [...] any fevers. She was told at the [facility] that her temperature was 99.2 [...] Impression: [Diarrhea] This note was generated with Care Team Connect dictation software. It may contain incorrect wo [...] unexpected problems, contact your Primary Care Provider. [facility] Doctors Registry ([phone]) or report to the closest Emergency Room. Call 911 if necessary. 07/15/17 1045 <Electronically signed by Tre Mcguire DO> Date Tre Mcguire DO Cosigner Signature (If Indicated): Date CC: Tayla Espinal DO 13-Jul-2017 Surgery Visit Report Result: Comments: See Note; NOTES: [facility] [address] [place] [address] OFFICE VISIT Date of Service: 07/12/17 MR#: [id number] Acct: [id number] Name: ANNA BETANCOURT Rep #: [id number] : 1940 Provider: Stacey Garcia Age/Sex: 77/F Location[facility] Status: Signed Intake Intake Visit Reasons: F/U MASTECTOMY/CEBUL Division Roadmaster Required: No Is patient in pain?: Yes [...] Patient returns for a follow-up [facility]. Patient is overall doing well. She [...] May return to therapy at [facility] - Prescription for mastectomy bras was provided [...] Visit Report Result: Comments: See Note; NOTES: [place] [address] OFFICE VISIT Date of Service: 06/27/17 MR#: [id number] Acct: [id number] Name: ANNA BETANCOURT Rep #: [id number] : 1940 Provider: Stacey Garcia Age/Sex: 77/F Location[facility] Status: Signed Intake Intake Visit Reasons: F/U MASTECTOMY/CEBUL Chief Complaint: left mastectomy RC Division Roadmaster Required: No Is patient in pain?: No [...] type: does not use what type of Penzataical activity do you participate in: none frequency: does not exercise seatbelt use: always HPI HPI HPI: ANNA GRULLONGABINOTIFFANY, is a 77 F I am following [...] Lead Electrocardiogram Result: Comments: See Note; NOTES: [facility] Cardiovascular Services [address] [place] [address] 12 Lead EKG 06/17/17 1008 MR#: [id number] Acct: [id number] Name: ANNA BARRERA Rep #: [id number] : 1940 76 From: Delvin Coleman MD Attending Dr: Josh Merritt MD Status: PRE [facility] Ordering Dr: Josh Merritt MD Date: 06/17/17 Location: [facility] Sex: F C Admitted: Test Reason : P REOP Blood Pressure : / mmHG Vent. Rate : 075 BPM Atrial Rate : 075 BPM P-R Int : 168 ms QRS Dur : 096 ms QT Int : 386 ms P-R-T Axes : 041 -23 060 degrees QTc Int : 431 ms Normal sinus rhythm Bor derline ECG Confirmed by DELVIN COLEMAN MD ([id number]), sound editor DANIELLE STAHL ([id number]) on 06/21/2017 3:06:43 PM Referred By: TOBY Confirmed By:DELVIN COLEMAN MD 06/21/17 1506 Date Delvin Coleman MD CC: Tayla Espinal Signed 01-Jun-2017 Surgery Visit Report Result: Comments: See Note; NOTES: [facility] [address] [place] [address] OFFICE VISIT Date of Service: 05/30/17 MR#: [id number] Acct: [id number] Name: ANNA BETANCOURT Rep #: [id number] : 1940 Provider: Stacey Garcia Age/Sex: 76/F Location: [facility] Status: Signed Intake Vital Signs05/30/17 Height 5 ft 5 in 05/30/17 Weight: 145 lb Int grayson Visit Reasons: Update H AND P.el Division Roadmaster Required: No Is patient in pain?: No [...] 76-year-old female. She was referred by her [facility] Dr. Ky Burkett for surgical treatment of her left breast cancer. She was hospitalized at the [facility] January 10, 2017 luis watts of uncontrolled [...] 1. Left breast mass N63.[address] Merritt will p phyllis to perform a left palliative mastectomy. Patient has had the opportunity to ask and have questions answered. Patient verbally understands the procedure and agrees to proceed. 06/01/17 1116 &# 60;Electronically signed by Stacey Pizano PA-C> Date Stacey Pizano PA-C Cosigner Signature: Date (if applicable) CC: 30-Mar-2017 Emergency Department Summary Result: Comments: See Note; NOTES: [facility] Medical Records Department [address] [place] [address] Emergency Department Summary 03/15/172011 MR#: [id number] Acct: [id number] Name: ANNA BARRERA Rep #: [id number] : 1940 76 From: Munir Kennedy MD PCP: Tayla Espinal DO Status: DEP ER - ER Visit Summary Date of Service: 03/15/17 Chief Complaint: [] Right ankle pain and passed out. History of Present Illness: The patient is a 76 F [] here with family after stone and concrete washer arrival. Patient states that she stepped off [...] problems, contact your Primary Care Provider. Call [facility] ors Registry ([phone]) or report to the closest Emergency Room. Call 911 if necessary. 03/30/17 0957 <Electronically signed by Munir Kennedy MD> Date Munir Kennedy MD Cosigner Signature (If Indicated): Date CC: Tayla Espinal 17-Mar-2017 12 Lead Electrocardiogram Result: Comments: See Note; NOTES: [facility] Cardiovascular Services [address] [place] [address] 12 Lead EKG 03/15/17 1407 MR#: [id number] Acct: [id number] Name: ANNA BARRERA Rep #: [id number] : 1940 76 From: Delvin Coleman MD [...] ECG Confirmed by DELVIN COLEMAN MD ([id number]), sound editor DANIELLE STAHL ([id number]) on 03/17/2017 2:36:13 PM Referred By: DOUGIE Confirmed By:DELVIN COLEMAN MD 03/17/17 1436 Date Delvin Coleman MD CC: Tayla Espinal DO Date Dictated: 03/15/171406 Date Transcribed: 03/15/171406 Deep Fryer Assembler: Signed 15-Mar-2017 Emergency Department Summary Result: Comments: See Note; NOTES: [facility] Medical Records Department [address] [place] [address] Emergency Department Summary 03/15/17 1528 MR#: [id number] Acct: [id number] Name: ANNA BARRERA Rep #: [id number] : 1940 76 From: Munir Kennedy MD [...] Care Provider] - Ky Burkett DO [STAFF [facility]] - Keep Jamee appointment What to do if you have Problems For any increased pain, shortness of breath, bleeding, nausea or vomiting, chest pain, or any unexpected problems, contact your Primary Care Provider. Call Doctors Registry ([phone]) or report to the closest Emergency Room. Call 911 if necessary. 03/15/17 1530 <Electronically signed by Munir Kennedy MD> Date Munir Reavesigner Signature (If Indicated): Date CC: Tayla Espinal DO 15-Mar-2017 Ankle min 3 Views Result: Comments: See Note; NOTES: [facility] Imaging Services [address] [place] [address] Ankle min 3 Views MR#: [id number] Acct: [id number] Name: ANNA BARRERA Rep #: [id number] : 1940 F 76 From: Asa Verma MD PCP: Tayla Espinal DO Status: [facility] ER Study: Ankle min 3 Views Date of Exam: 03/15/17 Exam# [id number] Ordering Dr: Munir Kennedy MD STUDY: X-RAY [...] Asa Verma MD at 14:22 EDT Tel [phone], Service support , CC: Munir Kennedy MD; Tayla Espinal DO Deep Fryer Assembler: Signed 06-Feb-2017 Emergency Department Summary Result: Comments: See Note; NOTES: [facility] Medical Records Department [address] [place] [address] Emergency Department Summary 02/06/17 1134 MR#: [id number] Acct: [id number] Name: ANNA BARRERA Rep #: [id number] : 1940 76 From: Srinivas Gabriel MD [...] by having bleeding on dressi ng changes. correction staff was concerned for the possibility of [...] dressing changes by the staff at her shelter and requested referral to wound care. I [...] Additional Instructions: Fol low-up with wound care [phone] What to do if you have Problems For any increased pain, shortness of breath, bleeding, nausea or vomiting, chest pain, or any unexpected problems, contact your [facility] Care Provider. Call Doctors Registry ([phone]) or report to the closest Emergency Room. Call 911 if necessary. 02/06/17 9879 <Electronically signed by Srinivas Gabriel MD> Da te Srinivas Gabriel MD Cosigner Signature (If Indicated): Date CC: Tayla Espinal 10-Jan-2017 Chest WITH Contrast Result: Comments: See Note; NOTES: [facility] Imaging Services [address] [place] [address] Verdana 4d Chest WITH Contrast MR#: [id number] Acct: [id number] Name: ANNA BARRERA Rep #: [id number] : 1940 F 76 From: Asa Verma MD PCP: Tayla Espinal DO Status: REG ER Study: Chest WITH Contrast Date of Exam: 01/10/17 Exam# [id number] Ordering Dr: Nasrin Lizama STUDY: CT CHEST [...] Asa Verma MD at 10:40 EDT Tel [phone], Service support , CC: Nasrin Lizama MD; Tayla Espinal DO Deep Fryer Assembler: Signed 03-Jul-2015 PT D/C Summary Result: Comments: See Note; NOTES: [facility] [address] [place] [address]. [address] [place] [address] Fax REHABILITATION SE RVICES DISCHARGE SUMMARY MR#: [id number] Acct: [id number] Name: ANNA BARRERA Rep #: [id number] : 1940 75 From: Amelie Rodriguez Referring [...] She is planning on continuing with a applications trainer and dileep robledo. - Objective Objective/Function: [...] - D/C Information Discharge Comments: Discharge to home exercise program If there are questions or concerns regarding this patient's physical therapy, please feel free to call me a t [phone]. Thank you for the referral of this patient. Sincerely, Amelie Rodriguez <Electronically signed by Amelie Rodriguez > 07/03/15 1031 CC: Elizabeth Villanueva; Tayla Espinal DO ELR Signed 10-Jun-2015 Re-Evaluation - PT Result: Comments: See Note; NOTES: [facility] [address] [place] [address] Fax REEVALUATION / [facility] MR#: [id number] Acct: [id number] Name: ANNA BARRERA Rep #: [id number] : 1940 74 From: Amelie Rodriguez Referring DrAlondra: Elizabeth Garnica tatus: REG RCR Insurance: ANTHCALVIN [...] do not hesitate to contact me at [phone] by phone or if you have questions or concerns regarding this new plan of care! Sincerely, Amelie Rodriguez <Electronically signed by Amelie Rodriguez > 06/10/15 1058 CC: Elizabeth Espinal DO ELR Signed For Medicare only, by signing this I certify the plan of care. Physicians Signature Date 19-May-2015 Inital Evaluation - PT Result: Comments: See Note; NOTES: [facility] [address] [place] [address]. [address] [place] [address] Fax REHABILITATION SE RVICES INITIAL EVALUATION MR#: [id number] Acct: [id number] Name: ANNA BARRERA Rep #: [id number] : 1940 74 From: Amelie Rodriguez Referring [...] in the AM and meets with a communication instructor 1x a week. - Objective Posture: [...] to be FAXED BACK to us at [phone] for Medicare purposes. Please let me know if there are questions or conc erns regarding this plan of care. Physician Signature: Date: <Electronically signed by Amelie Rodriguez > 05/19/15 6196 CC: Elizabeth Espinal DO ELR Signed For Medicare only, by signing this I certify the plan of care. Physicians Signature Date 11-May-2015 Knee 4 or More Views Result: Comments: See Note; NOTES: [facility] Imaging Services [address] [place], [place] [address] [address] Verdana 4d Knee 4 or More Views MR#: [id number] Acct: [id number] Name: ANNA PRICE Rep #: [id number] : 1940 F 74 From: Afshin Gant DO PCP: Tayla Espinal DO Status: REG CLI Study: Knee 4 or More Views Date of Exam: 05/11/15 Exam# [id number] Ordering Dr: Elizabeth Richards STUDY: X-RAY - [...] Afshin Gant DO at 9:20 EST Tel [phone], Service support [phone], RAD/Knee 4 or More Views IMPRESSION: Degenerative arthrosis. Electro nically Signed: Afshin Stalin at 9:20 EST Tel [phone], Service support [phone], CC: Elizabeth Villanueva; Tayla Espinal DO Deep Fryer Assembler: Signed 30-Oct-2014 Bilat Scrn Digital AND CAD Result: Comments: See Note; NOTES: [facility] Imaging Services [address] [place] [address] Breast Imaging Report MR#: [id number] Acct: [id number] Name: ANNA BARRERA Re p #: [id number] : 1940 F 74 From: Afshin Gant DO PCP: Tayla Espinal DO Status: REG CLI Study: Bilat Scrn Digital AND CAD Date of Exam: 10/30/14 Exam# [id number] Ordering Dr: Douglas Espinal DO MAMMOGRAPHY - [...] Afshin Gant DO at 14:34 EDT Tel [phone], Service support [phone], CC: Tayla Espinal DO Deep Fryer Assembler: Signed 30-Oct-2014 Dexa Bone Density Study (HP) Result: Comments: See Note; NOTES: [facility] Imaging Services [address] [place] [address] Bone Density Report MR#: [id number] Acct: [id number] Name: ANNA BARRERA Rep #: [id number] : 1940 F 74 From: Asa Verma MD PCP: Tayla Espinal DO Status: REG CLI Study: Dexa Bone Density Study (HP) Date of Exam: 10/30/14 Exam# [id number] Ordering Dr: Tayla Espinal DO STUDY: DUAL [...] Asa Verma MD at 8:23 EDT Tel [phone], Service support [phone], CC: Tayla Espinal DO Deep Fryer Assembler: Signed 12-Nov-2013 OT Discharge Summary Result: Comments: See Note; NOTES: [facility]ational [facility] [address] [place] [id number] Fax REHABILITATION SERVIC ES DISCHARGE SUMMARY MR#: [id number] Acct: [id number] Name: ANNA BARRERA Rep #: [id number] : 1940 73 From: Stephanie Schilling Referring DrAlondra: Lucero Lucero DO Status: DIS RCR Eval [...] discharged. Stephanie Schilling, OTR/L T: NTS JOB: [id number] <Electronically signed by Stephanie Schilling > 11/12/13 [...] smoker Vital Signs Date Test Result Details 0-Ybs-750951:13 Temperature 97.4 f Comments: Method: Temporal Pulse 90 /min Comments: Pattern: Regular Respiration Rate 17 /min Comments: Pattern: Unlabored O2 SAT 96 % Comments: Room air BP Systolic 130 mm[Hg] Comments: Patient Position: Sitting; Cuff Location: Left Arm; Cuff Size: Standard BP Diastolic 78 mm[Hg] Comments: Patient Position: Sitting; Cuff Location: Left Arm; Cuff Size: Standard Weight 146 lb Height 64 in Body Mass Index Calculated 25.06 kg/m2 Body Surface Area Calculated 1.71 m2 :11 Temperature 97.8 f Comments: Method: Temporal [...] 0.00 cm Results Date Description Value Details :26 TSH (THYROID STIMULATING Comments: PATIENT NOT FASTINGPERFORMED BY: JOSE DAVID [facility] Eyzyqt2952 [facility] [id number] HORMONE) (20587) TSH 0.076 {uIU/mL} (Abnormal) Range: 0.450-4.500 52-Zwd-135393:31 T3, FREE (TRIDOTHYRONINE) (97899) Comments: PATIENT NOT FASTINGPERFORMED BY: [facility] Snvtcz2132 [address] RoadDublin [place] [id number] Triiodothyronine (T3), Free 3.1 pg/mL (Normal) Range: 2.0-4.4 19-Quy-564745:31 T4, FREE (THYROXINE) (04370) Comments: PATIENT NOT FASTINGPERFORMED BY: CB [facility] Tsesxq0795 Mora RoadDublin [place] [id number] T4,Free(Direct) 2.14 ng/dL (Abnormal) Range: 0.82-1.77 30-Cpb-164452:31 TSH (THYROID STIMULATING Comments: PATIENT NOT FASTINGPERFORMED BY: [facility] Hzxxqi5307 Mora RoadDublin [place] [id number] HORMONE) (79969) TSH 0.058 {uIU/mL} (Abnormal) Range: 0.450-4.500 50-Bka-355523:52 CALCIFEDIOL (46289) Comments: PATIENT NOT FASTINGPERFORMED BY: CB [facility] Elulgj9320 Mora RoadDublin [place] [id number] Vitamin D, 25-Hydroxy 20.8 ng/mL (Abnormal) Range: 30.0-100.0 Comments: Vitamin D deficiency has been defined by the [place] ofPark[facility] Hospitalcine and an Endocrine Society practice guideline as alevel of serum 25-OH vitamin D less than 20 ng/mL (1,2).The Endocrine Society went on to further define vitamin Dinsufficiency as a level between 21 and 29 ng/mL (2).1. IOM ([place] of Medicine). 2010. Dietary reference intakes for calcium and D. [place]: The National Academies Press.2. Ham MF, Alvino ALCALA, Ileana AYALA, et al. Evaluation, treatment, and prevention of vitamin D deficiency: an Endocrine Society clinical practice guideline. JCEM. 2010; 96(7):1911-30. 90-Seo-496387:52 MICROALBUMIN: CREATININE RATIO Comments: PATIENT NOT FASTINGPERFORMED BY: [facility]370 [facility] [id number] (75268) AND (52514) Alb/Creat Ratio <22.6 {mg/g_creat} (Normal) Range: 0.0-30.0 Albumin, Urine <3.0 ug/mL (Normal) Creatinine, Urine 13.3 mg/dL (Normal) :52 METABOLIC PANEL, COMPREHENSIVE Comments: PATIENT NOT FASTINGPERFORMED BY: LabCoEast Orange [facility] Medical CenterVdeamu5871 [facility] [id number] (97739) ALT (SGPT) 12 [iU]/L (Normal) Range: 0-32 [...] 8-27 Glucose 86 mg/dL (Normal) Range: 65-99 00-Egn-387070:52 CBC W/AUTO DIFF WBC (47905) Comments: PATIENT NOT FASTINGPERFORMED BY: BusuuEast Orange [facility] Medical CenterFncial0077 [facility] [id number] Immature Grans (Abs) 0.0 {x10E3/uL} (Normal) Range: [...] 3.77-5.28 WBC 4.9 {x10E3/uL} (Normal) Range: 3.4-10.8 20-Wtq-520757:52 TSH (17565) Comments: PATIENT NOT FASTINGPERFORMED BY: BusuuEast [facility] Medical CenterDjyznw5062 [facility] [id number] TSH 0.032 {uIU/mL} (Abnormal) Range: 0.450-4.500 15-Dcs-672267:52 T4, FREE (THYROXINE) (25883) Comments: PATIENT NOT FASTINGPERFORMED BY: [facility]CoEast [facility] CenterSimmzs4301 [facility] [id number] T4,Free(Direct) 2.26 ng/dL (Abnormal) Range: 0.82-1.77 15-Hpj-383106:52 T3, FREE (TRIDOTHYRONINE) (43380) Comments: PATIENT NOT FASTINGPERFORMED BY: LabCoEast [facility] CenterElwsnr4085 [facility] [id number] Triiodothyronine,Free,Serum 3.6 pg/mL (Normal) Range: 2.0-4.4 00-Tdi-831589:50 Urinalysis, Complete Comments: Order Date: 09/08/17How was Urine Obtained? BANDOLEER STRAIGHTENER STAMPER TO [facility] [address] [place], [id number] MUCUS, URINE 0 SEEN {/hpf} (Normal) BACTERIA [...] (Normal) CLARITY Clear (Normal) COLOR Straw (Normal) 36-Yvd-252081:20 CBC W/Diff, Automated Comments: [facility] [address]ph[address] [place], [address] PATH REV October foll (Normal) Absolute Lymph [...] 4.2-5.4 WBC 2.9 K/mm3 (Abnormal) Range: 4.4-11.0 72-Byo-037426:20 Comprehensive Metabolic Profil Comments: 'TROP' Serial specimen #1, #2, #3, or #4: 1[facility] Xhjxxmxvvi3547 [facility] [place], [place], [address] GAP 5 (Normal) Range: 5-15 CO2 31.0 mmol/L (Normal) Range: 21.0-32.0 CL 102 mmol/L (Normal) Range: 98-107 K 3.6 mmol/L (Normal) Range: 3.5-5.1 NA 138 mmol/L (Normal) Range: 136-145 T BILI 0.40 mg/dL (Normal) Range: 0.20-1.00 ALT 88 U/L (Abnormal) Range: 13-56 Comments: Please note revised ALT reference range fofzwvder59/28/2018. ALK P 95 U/L (Normal) Range: 45-117 [...] A.D.A. criteria.Please note revised GLUCOSE reference range /02/2018. 74-Grl-017876:20 Lipase Comments: 'TROP' Serial specimen #1, #2, #3, or #4: [address] [place] [address] [address] [place], [place], [address] LIPASE 389 U/L (Normal) Range: 73-393 89-Rqn-552584:20 Troponin-I Comments: 'TROP' Serial specimen #1, #2, #3, or #4: [address] [place] [address] [address] [place], [place], [address] TROPONIN-I < 0.02 ng/mL (Normal) Comments: TROPONIN-I EXPECTED VALUES <0.05 NEGATIVE 0.06 - 0.59 AT RISK OF MD > OR = 0.60 SUGGEST MD 29-Pfr-21070:50 Basic Metabolic Profile (BMP) Comments: [facility] [address] [place], [place], [address] GAP 9 (Normal) Range: 5-15 CO2 24.0 [...] 7-18 GLU 100 mg/dL (Normal) Range: 70-110 81-Jur-91058:50 CBC W/Diff, Automated Comments: [facility] Qkwgvpppbd9357 [facility]. [place], [place], [address] SMEAR COMMENT SCANNED (Normal) Absolute Lymph 0.40 [...] -Jun-2017 BREAST MASTECTOMY (CHOOSE See Note Comments: [facility] [address] [place], [address] 7:15 SIDE (Normal) Comments: Patient: ANNA BARRERA : 1940 (77/F) Acct Num: [id number] Phys: Josh Merritt MD Unit Num: [id number] Loc: [facility] Specimen: [id number] Received: 06/22/17936 Spec Type: B [...] node measures 3.5 cm in greatest dimension. Regional Flatbed Truck Driver sections are subm itted as follows: 1 [...] superior, inferior and posteri or margin, 15-17 small business representative sections from the other areas, 18 multiple lymph nodes, 19-21 each cassette containing one bisected lymph node, 22 two lymph nodes, 23 AND 24 one lymph node, 2 5 AND 26 one lymph node. / SJ:rg 06/23/17 TC:0 CPT: 91526 HEADER OPERATION: Left modified radical mastectomy PRE-OP [...] previously performed on section of tumo r (W17-4375 / LW78-718). 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 PATHOLOGIC STAGE: p T1a(y) pN0 Mx The above summary is in compliance with College of [place] Pathology (CAP) Cancer Protocols Checklist and [place] Joint Committee on Cancer (AJCC), Staging Manual, 7th Ed. SJ:blanco 06/26/17 Signed Young Malcolm 06/26/17 <signature on file> 22-Jun-2017 IMMUNOHISTOCHEMISTRY See Note Comments: [facility] [address] [place], [address] 0:00 (Normal) Comments: Patient: ANNA BARRERA : 1940 (77/F) Acct Num: [id number] Phys: Josh Merritt MD Unit Num: [id number] Loc: [facility] Specimen: [id number] Received: 06/26/17 - 1201 Spec Type: IMMUNO TISSUES TISSUES: Left breast, NOS SPECIMEN INFORMATION: Tissue Source: Left breast and axillary contents Clinical Info: Left breast cancer Specimen Number: [id number] #6 AND 24 CPT code: 98415, 48948 x3 METHODOLOGY: Deparaffinized sections of prefer/formalin-fixed tissue [...] developed and their performance characteristics determined by [facility]. They may not have been [...] the above diagnosis. IDC:AM [facility]YS[facility]IAN AND INSTITUTION [address] [address] Signed Young Gold 06/27/17 <signature on file> :57 Basic Metabolic Profile (BMP) Comments: [facility] [address] [facility] [address] [place], [place], [address] GAP 6 (Normal) Range: 5-15 CO2 31.0 [...] :57 CBC-Complete Blood Cnt No Diff Comments: [facility] [address] [place], [place], [address] MPV 9.5 fL (Normal) Range: 6.2-12.0 PLT [...] 4.2-5.4 WBC 3.9 K/mm3 (Abnormal) Range: 4.4-11.0 23-Sej-35966:57 Thyroid Stim Hormone (TSH) Comments: [facility] Lhddozffhs8871 [facility]. [place], [place], [address] TSH 0.26 {uIU/mL} (Abnormal) Range: 0.358-3.74 96-Zjm-922279:08 Basic Metabolic Profile (BMP) Comments: [place] [address] [facility]. [place], [place], [address] GAP 7 (Normal) Range: 5-15 CO2 27.0 [...] 7-18 GLU 108 mg/dL (Normal) Range: 70-110 70-Mdr-507738:30 Culture, Sputum Comments: [facility] [address] [place], [place], [address] CUSP See Note (Normal) Comments: Gram StainAcceptable Specimen? Yes (<25 Epithelial cells per/lpf) Gram Stain 1+ White Blood Cells No Epithelial cells 2+ Gram positive cocci in clusters Resp. CultureMixed normal respirat ory anita. No Haemophilus, Streptococcus pneumoniae, beta-hemolytic Streptococcus or Staphylococcus aureus isolated. ORGANISM 1: YeastAmount Growth Rare 71-Ebc-489419:00 Culture, Sputum Comments: [facility] [address]xs[address] [facility] [place], [address] CUSP See Note Comments: Gram StainAcceptable Specimen? [...] <=20 S(NF) indicates non-formulary veena g at [facility]. Approval by Infectious Disease Specialist required before non-formulary drugs may be ordered and/or dispensed. BREAST BIOPSY (CHOOSE SITE) See Note Comments: [facility] [address] [facility] [place], [address] 716:06 (Normal) Comments: Patient: ANNA BARRERA : 1940 (76/F) Acct Num: [id number] Phys: Ceferino Morales MD Unit Num: [id number] Loc: [facility] Specimen: [id number] Received: 01/18/17 - [facility] Spe c Type: BREAST BX TISSUES TISSUES: COMMENT Immunohistochemistry ([id number]) supports the above diagnosis. 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 Case is reviewed in consultation with Dr. Ibarra of [employer]. The complete consultative report is viewable in [...] with the smaller fragments intwo cassettes. / AM: 01/18/17 TC:0 CPT: 92519 HEADER OPERATION: Left breast core biopsy PRE-OP DIAGNOSIS: Breast cancer TISSUE SUBMITTED: Left breast core biopsy ISCHEMIC TIME: 18 minutes FIXATION TIME: 17 hours MICROSCOPIC DESCRIPTION Sli diana are reviewed. MICROSCOPIC DIAGNOSIS Left breast, core biopsy: Poorly differentiated ductal carcinoma. AM: 01/19/17 Signed [facility] 01/30/17 <signature on file> IMMUNOHISTOCHEMISTRY See Note Comments: [facility] [address] [place], [address] 70:00 (Normal) Comments: Patient: ANNA BARRERA : 1940 (76/F) Acct Num: [id number] Phys: Ceferino Morales MD Unit Num: [id number] Loc: [facility] Specimen: [id number] Received: 01/19/17 - 1031 Spe c Type: IMMUNO TISSUES TISSUES: SPECIMEN INFORMATION: Tissue Source: Left breast core biopsy Clinical Info: Breast cancer Specimen Number: [id number] #1 CPT code: 81143, 49168 x22, 58969 x3 METHODOLOGY: Deparaffinized sections of prefer/formalin- fixed [...] ER (clone 6F11) 38%, weak to moderate MN (clone 16/1E2) 0% Her-2Neu (clone CB11) 0 The prognostic test for HER2 is performed on formalin-fixed paraffin embedded tissue. A 3+ (positive) staining pattern is defined as intense, homogeneous, complete, circumferential membran ous staining in >10% of contiguous tumor cells. A similar weak (2+) staining pattern is interpreted as equivocal. JENNA follow-up testing is recommended for all equivocal cases. Positivity/negativity for ER/MN is reported if > or < 1% of the tumor cells are immuno- reactive, respectively. The ASCO/CAP criteria is used for scoring. Reference: Journal of Clinical Oncology, 2013; 31:6260-8525 AN D 2010; 16:8870-3765. Duration of fixation: 17 Hrs; Sample Adequate: Yes. These assays have not been validated on decalcified tissues. Results should beinterpreted with caution given the likelihoo d of false negativity on decalcifiedspecimens. These tests were developed and their performance characteristics determined by [facility]. They may not have been cleared or approved by the U.S. Food and Drug Administration. The FDA has determined that such clearance or approval is not necessary. INTERPRETATION: Left breast, core biopsy: Poorly differentiated duct al carcinoma. Positive for estrogen receptors (favorable prognostic indicator). Negative for progesterone receptors (unfavorable prognostic indicator). Negative for overexpression of HER2n eu. AM:rg 01/30/17 Comment: A primary breast basaloid carcinoma is favored. Clinical correlationis necessary. Case is reviewed in consultation with Dr. Ibarra of [facility]. Complete consultative report is viewable in patient's EMR Case has been reviewed in consultation with Dr. Malcolm who concurs with the abovediagnosis. IDC:[facility] PH[facility]IAN [facility] INSTITUTION [address] [address] Signed Deo Kayla 01/30/17 <signature on file> :04 Basic Metabolic Profile (BMP) Comments: [facility] [address] [place], [address] GAP 6 (Normal) Range: 5-15 CO2 30.0 [...] <126 mg/dLsuggests IMPAIRED HOMEOSTASIS per A.D.A. criteria. :04 CBC W/Diff, Automated Comments: [facility] [address] [place], [address] Absolute Lymph 1.46 {X10_3/ul} (Normal) Range: 0.83-4.51 [...] Range: 4.4-11.0 :04 Partial Thromboplast Time Comments: [facility] [address] [place], [address] PTT 26.4 s (Normal) Range: 24.1-36.2 :04 Prothrombin Time w/INR Comments: [facility] [address] [place], [address] INR 1.0 (Normal) PROTIME 12.7 s (Normal) Range: 11.7-14.9 :05 CBC W/Diff, Automated Comments: [facility] [address] [place], [place], [phone] Absolute Lymph 2.04 {X10_3/ul} (Normal) Range: 0.83-4.51 [...] Range: 4.4-11.0 :05 Comprehensive Metabolic Profil Comments: [facility] [address] [place], [place], [address] GAP 7 (Normal) Range: 5-15 CO2 30.0 [...] 7-18 GLU 94 mg/dL (Normal) Range: 70-110 38-Ysu-71423:05 Lipid Profile Comments: [facility] [address] [place], [address] VLDL 10 mg/dL (Normal) Range: 5-40 LDL [...] High Risk :05 Microalb:Creat Ratio,Random UR Comments: [facility] [address] [place], [place], [address] MALB:CREAT 8.6 {mg/g_CRE} (Normal) MICROALBUMIN,UR 5.8 mg/L (Normal) UR CREAT 67.00 mg/dL (Normal) :05 Thyroid Stim Hormone (TSH) Comments: [facility] [address] [place], [address] TSH 0.65 {uIU/mL} (Normal) Range: 0.358-3.74 :05 Urinalysis, Routine (Dipstick) Comments: How was Urine Obtained? CLEAN [facility] [address] [place], [address] LEUK ESTERASE 100 /ul (Abnormal) OCCULT BLOOD-UR 25 /ul (Abnormal) NITRITE UR Negative (Normal) UROBILI Normal mg/dL (Normal) PROT DIPSTX Negative mg/dL (Normal) pH UR 6.5 (Normal) Range: 5.0 - 8.0 SP.GR. DIPSTX 1.010 (Normal) Range: 1.002-1.030 KETONE UR Negative mg/dL (Normal) BILIRUBIN URINE Negative mg/dL (Normal) GLUCOSE, UR Normal mg/dL (Normal) CLARITY Clear (Normal) COLOR Yellow (Normal) 83-Ofl-580761:08 TSH (55995) Comments: PATIENT NOT FASTINGPERFORMED BY: [facility] Kwnzmd7202 [facility] [id number] Information: [id number] TSH 1.080 {uIU/mL} (Normal) Range: 0.450-4.500 :06 CBC W/Diff, Automated Comments: Test performed at:[facility] [address] [place] [address] Absolute Lymph 2.22 {X10_3/ul} (Normal) [...] 4.2-5.4 WBC 5.8 K/mm3 (Normal) Range: 4.4-11.0 21-Nov-20146:06 Comprehensive Metabolic Profil Comments: Test performed at:[facility] [address] [place], [place] [address] GAP 4 (Abnormal) Range: 5-15 CO2 31.0 [...] 70-110 :06 Lipid Profile Comments: Test performed at:[facility] [address] [place], [place] [address] VLDL 11 mg/dL (Normal) Range: 5-40 LDL [...] :06 Microalb:Creat Ratio,Random UR Comments: Test performed at:[facility] L[address]etyd0126 [facility] [place], [place] [address] MALB:CREAT 21.7 {mg/g_CRE} (Normal) MICROALBUMIN,UR 7.8 mg/L (Normal) UR CREAT 35.8 mg/dL (Normal) :06 Thyroid Stim Hormone (TSH) Comments: Test performed at:[facility] [address] [place], [place] [address] TSH 0.46 {uIU/mL} (Normal) Range: 0.358-3.74 :06 Urinalysis, Routine (Dipstick) Comments: How was Urine Obtained? CLEAN CATCHTest performed at:[facility] [address] [place] [address] ; will review at 11/26 appt [...] :06 Vitamin D,25 Hydroxy Comments: Test performed at:[facility] [address] [place] [address] Vitamin D 25-OH 23.4 ng/mL (Normal) Comments: Vitamin D 25(OH) Status Range Deficiency <20 ng/mL (50nmol/L) Insuffciency 20 - 30 ng/mL (50 - 75 nmol/L) Sufficiency 30 - 100 ng/mL (75 - 250 nmol/L) Toxicity >100 ng/mL (>250 nmol/L) 17-Sep-20139:09 TSH (14465) Comments: PATIENT NOT FASTINGPERFORMED BY: [employer] [address]ah[address] [facility] [place] [id number] Information: [id number], [id number] TSH 1.860 {uIU/mL} (Normal) Range: 0.450-4.500 42-Alq-489854:27 TSH (18890) Comments: PATIENT NOT FASTINGPERFORMED BY: [facility] Ekuxor3570 [facility] [place] [id number] Information: [id number] TSH 1.760 {uIU/mL} (Normal) Range: 0.450-4.500 :05 [...] 7-18 GLU 95 mg/dL (Normal) Range: 70-110 : LIPID VLDL 13 mg/dL (Normal) Range: 5-40 [...] D deficiency has been defined by the [place] ofMedicine and an Endocrine Society practice guideline as alevel of serum 25-OH vitamin D less than 20 ng/mL (1,2).The Endocrine Society went on to further define vitamin Dinsufficiency as a level between 21 and 29 ng/mL (2).1. IOM ([place] of Medicine). 2010. Dietary reference intakes for calcium and D. [place]: The National Academies Press.2. Ham MF, Alvino NC, Ileana AYALA, et al. Evaluation, treatment, and prevention of vitamin D deficiency: an Endocrine Society clinical practice guideline. JCEM. 2010; 96(7): 1911-30.Performed at: [address] [id number] Director: Stephanie Young MD, Phone: [phone] :43 TSH (70593) Comments: PATIENT NOT FASTINGPERFORMED BY: [address] [id number] Information: [id number] TSH 2.940 {uIU/mL} (Normal) Range: 0.450-4.500 :43 CALCIFIDIOL (92613) VIT D 25 Comments: PATIENT NOT FASTINGPERFORMED BY: [address] [id number] Vitamin D, 25-Hydroxy 24.5 ng/mL (Abnormal) Range: 32.0-100.0 Comments: Recent studies consider the lower limit of 32.0 ng/mL to be athreshold for optimal health.Larry BARRERA. J Nutr. 2004;135(2):317-22. 93-Nrm-890840:08 PARATHORMONE (31255) Comments: PATIENT NOT FASTINGPERFORMED BY: [address] [id number] Information: [id number] PTH, Intact 47 pg/mL (Normal) Range: 15-65 :06 Microscopic Examination Comments: PATIENT NOT FASTINGPERFORMED BY: [facility] [facility] [place] [id number] Bacteria Few (Normal) Mucus Threads Present (Normal) Epithelial Cells (non renal) None seen {/hpf} (Normal) Range: 0 - 10 RBC None seen {/hpf} (Normal) Range: 0 - 3 WBC 0-5 {/hpf} (Normal) Range: 0 - 5 :06 Vitamin D Hydroxy ([id number]) Comments: PATIENT NOT FASTINGPERFORMED BY: [id number] [place] [id number] Vitamin D, 25-Hydroxy 27.0 ng/mL (Abnormal) Range: 32.0-100.0 Comments: Recent studies consider the lower limit of 32.0 ng/mL to be athreshold for optimal health.Larry BARRERA. J Nutr. 2004;135(2):317-22. :06 TSH ([id number]) Comments: PATIENT NOT FASTINGPERFORMED BY: [facility] [id number] [facility] [place] [id number] TSH 4.620 {uIU/mL} (Abnormal) Range: 0.450-4.500 :06 URINALYSIS, W/ MICRO (40425) Comments: PATIENT NOT FASTINGPERFORMED BY: [facility] [id number] [place] [id number] Microscopic Examination See below: (Normal) Microscopic Examination MICRON (Normal) Comments: Microscopic follows if indicated. Nitrite, Urine Negative (Normal) Bilirubin Negative (Normal) Ketones Negative (Normal) Occult Blood Negative (Normal) Urobilinogen,Semi-Qn 0.2 mg/dL (Normal) Range: 0.0-1.9 Glucose Negative (Normal) Protein Negative (Normal) Appearance Clear (Normal) Urine-Color Yellow (Normal) WBC Esterase Negative (Normal) pH 6.5 (Normal) Range: 5.0-7.5 Specific [place] 1.007 (Normal) Range: 1.005-1.030 :06 MICROALBUMIN: CREATININE RATIO Comments: PATIENT NOT FASTINGPERFORMED BY: [facility] Negqsd7635 [facility] [place] [id number] ([id number]) AND ([id number]) Microalb/Creat Ratio 13.5 {mg/g_creat} (Normal) Range: 0.0-30.0 Creatinine, Urine 19.3 mg/dL (Normal) Range: 15.0-278.0 Microalbumin, Urine 2.6 ug/mL (Normal) Range: 0.0-17.0 23-Sep-20108:06 METABOLIC PANEL, COMPREHENSIVE Comments: PATIENT NOT FASTINGPERFORMED BY: [facility] [id number] ([id number]) Alkaline Phosphatase, S 81 [iU]/L (Normal) Range: [...] Glucose, Serum 74 mg/dL (Normal) Range: 65-99 :06 CBC WITH MANUAL DIFF Comments: PATIENT NOT FASTINGPERFORMED BY: JOSE DAVID [facility] CenterHkslnh8604 [facility] [id number] Information: [id number] ([id number]) Immature Grans (Abs) 0.0 {x10E3/uL} (Normal) Range: [...] CHOL 191 mg/dL (Normal) Comments: <200 mg/dL Rkqfmmcfc077-552 mg/dL Borderline>240 mg/dL High Risk HDL 57 [...] {uIU/mL} (Normal) Range: 0.358-3.74 :05 VIT D,25 30872 29.2 ng/mL (Abnormal) Range: 32.0-100.0 Comments: Recent studies consider the lower limit of 32.0 ng/mL to daren threshold for optimal health.Larry BARRERA. J Nutr. 2004;135(2):317-22.Performed at: [facility] [employer] [id number] Director: Caprice Woods MD :58 URINE VENICE CULTURE-DESMOND COL Comments: PATIENT NOT FASTINGClinical Information: SRC:UR ADD [id number] PERFORMED BY: [facility] [id number] COUNT ([id number]) Result 1 BETAGB (Normal) Comments: Beta hemolytic Streptococcus, group B10,000- 25,000 colony forming units per mLPenicillin continues to be the drug of choice for infectionscaused by beta hemolytic streptococci in groups A,B,C and G.No p enicillin resistance has been described among theseorganisms and surveillance for emerging resistance is notrecommended. (BLANCA Rosenbaum. Clinical Microbiology Newsletter,1993; ALEJANDRO Santamaria, et al. Diagn ostic Microbiology andInfectious Disease, November,.) Urine Final report (Normal) Culture,Comprehensive :59 Urinalysis, Office ([id number]) UA - BILIRUBIN Negative (Normal) UA - [...] TIMED TSH 3.448 {uIU/mL} Comments: PERFORMED BY: [facility] [employer] [id number] 5:11 (Normal) Range: 0.450-4.500 TSH 4.26 {uIU/mL} [...] Plan of Care Name Dates Details Instructions Left ankle swelling : Follow up if no improvement or if symptoms worsen Indication: Left ankle swelling Left ankle pain : Follow up if no improvement or if symptoms worsen Indication: Left ankle pain Non-smoker : Eprescribed prescriptions (G8553) Indication: Non-smoker Metastatic breast cancer : Reviewed Lab Indication: Metastatic breast cancer Metastatic breast cancer : Reviewed Diagnostic Tests Indication: Metastatic breast cancer Metastatic breast cancer : Reviewed Retail Receiving Clerk Letter Indication: Metastatic breast cancer Benign essential hypertension : Continue Current Prescription(s) Indication: Benign essential hypertension Hypercholesterolemia : Cholesterol mgmt Indication: Hypercholesterolemia Benign essential hypertension : HTN/CAD Red Flags Indication: Benign essential hypertension Metastatic breast cancer : Reviewed Lab Indication: Metastatic breast cancer Metastatic breast cancer : Reviewed Diagnostic Tests Indication: Metastatic breast cancer Metastatic breast cancer : Reviewed Retail Receiving Clerk Letter Indication: Metastatic breast cancer Non-smoker : [...] of right ankle, initial encounter : Reviewed Retail Receiving Clerk Letter Indication: Sprain of right ankle, initial encounter Metastatic breast cancer : Reviewed Retail Receiving Clerk Letter Indication: Metastatic breast cancer Benign essential [...] Osteoporosis Planned Observations TSH (THYROID STIMULATING HORMONE) ([id number])Indication: Hypothyroidism, unspecified On: 20-War-959597:32 Request Comments: re check in 6 weeks TSH (THYROID STIMULATING HORMONE) (05814)Indication: Hypothyroidism, unspecified On: 51-Fru-285751:36 Request T4, FREE (THYROXINE) (96920)Indication: Hypothyroidism, unspecified On: 57-Pzl-762870:33 Request T3, FREE (TRIDOTHYRONINE) (08426)Indication: Hypothyroidism, unspecified On: 82-Beu-879628:33 Request CALCIFIDIOL (71422) VIT D 25Indication: Vitamin D deficiency, unspecified On: 88-Gvl-542363:47 Request TSH (60631)Indication: Hypothyroidism, unspecified On: 47-Jqn-796730:46 Request URINALYSIS, W/ MICRO (23282)Indication: Benign essential hypertension On: :46 Request MICROALBUMIN: CREATININE RATIO (09523) AND (01519)Indication: Benign essential hypertension On: 01-Apf-900875:46 Request METABOLIC PANEL, COMPREHENSIVE (86694)Indication: Benign essential hypertension On: :46 Request LIPID PANEL (06741)Indication: Hypercholesterolemia On: 49-Hkc-722973:46 Request CBC W/AUTO DIFF WBC (74905)Indication: Benign essential hypertension On: :46 Request URINE VENICE CULTURE-DESMOND COL COUNT ([id number])Indication: UTI symptoms On: 77-Rsl-611354:31 Request LIPID PANEL (95304)Indication: Hypercholesterolemia On: 17-Aug-20169:55 Request Comments: November 2016 MICROALBUMIN: CREATININE RATIO (56537) AND (53064)Indication: Benign essential hypertension On: :54 Request Comments: November 2016 URINALYSIS ([id number])Indication: Benign essential hypertension On: :54 Request Comments: November 2016 CBC, Platelets & Auto Diff (14490)Indication: Benign essential hypertension On: :54 Request Comments: November 2016 Metabolic Panel, Comprehensive (43307)Indication: Benign essential hypertension On: :54 Request Comments: November 2016 TSH (40480)Indication: Hypothyroidism, unspecified On: :53 Request Comments: due in November 2016 Vitamin D Hydroxy (73571)Indication: Vitamin D deficiency, unspecified On: 70-Cdz-750168:01 Request URINALYSIS, W/ MICRO (59836)Indication: Benign essential hypertension On: 60-Ykx-711172:00 Request MICROALBUMIN: CREATININE RATIO (80349) AND ([id number])Indication: Benign essential hypertension On: 33-Pom-674347:00 Request METABOLIC PANEL, COMPREHENSIVE (96744)Indication: Benign essential hypertension On: 05-Zhy-191684:00 Request LIPID PANEL (00870)Indication: Hypercholesterolemia On: :00 Request CBC WITH MANUAL DIFF ([id number])Indication: Benign essential hypertension On: 77-Aak-880565:00 Request TSH ([id number])Indication: Hypothyroidism, unspecified On: 04-Yyr-999047:00 Request Vitamin D Hydroxy (79727)Indication: Osteoporosis On: 90-Kvt-645664:44 Request URINALYSIS, W/ MICRO (04979)Indication: Benign essential hypertension On: 33-Ldn-741786:41 Request MICROALBUMIN: CREATININE RATIO (18532) AND (48839)Indication: Benign essential hypertension On: :41 Request METABOLIC PANEL, COMPREHENSIVE (93056)Indication: Benign essential hypertension On: 28-Xfd-662496:41 Request LIPID PANEL (38431)Indication: Benign essential hypertension On: 90-Onk-980125:41 Request CBC WITH MANUAL DIFF ([id number])Indication: Benign essential hypertension On: :41 Request TSH ([id number])Indication: Hypothyroidism, unspecified On: 49-Ywr-160266:40 Request TSH ([id number])Indication: Hypothyroidism, unspecified On: 38-Huo-869616:09 Request LIPID PANEL (31483)Indication: Hypercholesterolemia On: 5-Vlq-853523:12 Request METABOLIC PANEL, COMPREHENSIVE (74456)Indication: Hypercholesterolemia On: 3-Xgr-309212:12 Request TSH ([id number])Indication: Hypothyroidism, unspecified On: 8-Rpr-423662:12 Request Planned Procedures Radiology - Ankle - LeftBy: Bradley, On: 24-May-2018 Intent Lilian ELECTROCARDIOGRAM, COMPLETE (ECG) On: 06-Dec-2017 Intent ([id number])By: Tayla Espinal DO Comments: nsr no acute chg DO, Tayla Espinal DO, Tayla PNEUM VAC ADLT/IMUMNOSPR, SBC/INTRM On: 24-Mar-2017 Intent ([id number])By: Tayla Espinal DO Comments: lot:[id number]:IM left deltoid dose:0.5ml given by:hayley Us LPN DO, Tayla Velez DO ELECTROCARDIOGRAM, COMPLETE (ECG) On: 04-Jan-2017 Intent (37573)By: Tayla Espinal DO Comments: nsr no acute cgh DO, Tayla Espinal DO, Tayla PHYSICAL THERAPY EVALUATION ([id number])By: On: 11-May-2015 Intent Elizabeth Villanueva CNP Radiology - Knee - RightBy: Kay MUÑOZ, On: 11-May-2015 Intent Elizabeth Watts MAMMOGRAM, SCREENING, BOTH BREAST On: 22-Aug-2014 Intent ([id number])By: Tayla Espinal DO Comments: send results to Tayla Matthews DO, DO, Kathleen DEXA SCAN AXIAL SKELETON ([id number])By: On: 22-Aug-2014 Intent Tayla Espinal DO, DO, Comments: send results to Tayla Hall DO Eprescribed prescriptions (G8553)By: On: 13-Sep-2012 Intent Lilian Richardson LPN Inhaler Demonstration (18987)By: On: 04-Jul-2012 Intent Elizabeth Villanueva CNP Inhaler Demonstration ([id number])By: On: 04-Jul-2012 Intent Elizabeth Villanueva CNP Aerosol Treatment (90365)By: Kay On: 04-Jul-2012 Intent Elizabeth MUÑOZ Eprescribed prescriptions (G8553)By: On: 27-May-2011 Intent Citomasa GIS DEVELOPER, Josefa EKG (35057)By: Tayla Espinal DO On: 23-Sep-2010 Intent Kylie DOTayla Kylie DO, Comments: nsr no acute chg Tayla Eprescribed prescriptions (G8553)By: On: 23-Sep-2010 Intent Kylie DO, Tayla Kylie DO, Tayla Kylie DO, Tayla EKG (60384)By: Kylie DOGayTayla On: 01-Jun-2009 Intent Kylie DO, Tayla Kylie DO, Comments: nsr no acute changes Tayla SPECIMEN HANDLING/TRANSPORT ([id number])By: On: 28-Nov-2008 Intent Keren Wilde LPN Radiology - ChestBy: Justyna Head MD On: 20-May-2008 Intent Vishal Comments: if not better 2 weeks Instructions Name Dates Details Non-smoker : How to access health information online Indication: Non-smoker Non-smoker : How to access health information online - Detail Indication: Non-smoker Left ankle pain : Patient Instructions Indication: Left ankle pain Non-smoker : How to access health information [...] Advance Directives Name Dates Details Immunization Registry [place] - Effective on 03/24/2017. Effective: 24-Mar-2017 Expiration date unspecified Encounters Office Visit On: 24-May-2018 14:10 Encounter Reason: Ankle Pain - This condition occurred following a specific injury. The patient sustained an injury to the left ankle. This occurred 1 week(s) ago at home. The injury resulted from a fall. Symptoms includ End: 24-May-2018 14:33 e ankle pain and swelling. Symptoms are located in the left ankle. Onset was 4 day(s) ago. The patient describes symptoms as moderate in severity. Note for Ankle pain: Symptoms started about 1 month a go-Missed a step at home and fell on left knee and ankle. No redness, or bruising. Outer ankle is swollen. Hurts to walk and standing on it. Iced ankle once and has been taking tyenol.Encounter Diagnosis: Non-smoker, BMI 24.0-24.9, adult, Left ankle pain, Fall, accidental, Left ankle swelling [facility] Phone Encounter On: 18-May-2018 13:26 Encounter Diagnosis: [...]
--- OUTSIDE RECORDS SUMMARY | 2018-07-15 17:18 | XMS RPT_ITS | Continuity of Care Document ---
:1940 Author Organization [facility] Address [facility] [facility] [address] [place] [address] Phone Care Team Providers Name Role Phone Tayla Espinal DO Unavailable Giorgio Hanley Unavailable Unavailable Lilian Huerta Unavailable Unavailable Long PRODUCTION BROACHER, Carlita Leigh Unavailable Unavailable Shala Taylor Unavailable Unavailable DEBI RichardsonN Lilian Unavailable Unavailable Unavailable Unavailable Problems Name Dates [...] 268.9) Status: Active Medications Name Dates Details Aircast Sport Ankle Brace/Left Miscellaneous 1 (one) Misc daily for walking for 30 days Quantity: 1 {Each} Refills: 0 Ordered:28-May-2018 Cameron ORTEGACarlita Start : 28-May-2018 Active Comments:M25.472 Anastrozole 1 MG Oral Tablet 1 qd (1 MG) Active ATIVAN, 0.5MG (Oral Tablet) 1 Tablet tid [...] : 30-Mar-2017 End : 06-Dec-2017 Inactive DRISDOL, [id number] (Oral Capsule) 1 Capsule 2 X WEEK [...] days Quantity: 180 {Tablet} Refills: 0 Ordered:17-Aug-2016 Kay MUÑOZ Josefa Start [...] Quantity: 90 {Capsule} Refills: 3 Ordered:24-Jul-2017 Bertha Espinla DO, DO, Tayla Stone DO Start : 24-Jul-2017 End : 24-Jul-2017 Discontinued [...] as of 06-Dec-2017 Procedures Date Value Details 24-May-2018 Ankle min 3 Views Result: Comments: See Note; NOTES: [facility] Imaging Services [address] [place] [address] Ankle min 3 Views MR#: [id number] Acct: [id number] Name: ANNA BARRERA Rep #: [id number] : 1940 F 77 From: Silverio Dow MD PCP: Tayla Espinal DO Status: REG CLI Study: Ankle min 3 Views Date of Exam: 05/24/18 Exam# [id number] Ordering Dr: Lilian Huerta STUDY: X-RA Y - LEFT ANKLE REASON FOR EXAM: Female, 77 years old. Twisted ankle TECHNIQUE: 3 view(s) of the ankle. COMPARISON: None. FINDINGS: Normal visualized distal tibia and fibula. Normal medial and lateral malleoli. Normal tibiotalar articulation and ankle mortise. Normal visualized talus and calcaneus. The visualized subtalar, talonavicular, calcaneocuboid and tars al articulations are normal. The soft tissue structures are unremarkable. RAD/Ankle min 3 Views IMPRESSION: No acute osseous injury is evident. Electronically Signed: Silverio Dow MD at 9:58 EST Tel , Service support , CC: BELÉN Huerta; Tayla Espinal DO Hydraulic Lift Operator: Signed 08-Nov-2017 Surgery Visit Report Result: Comments: See Note; NOTES: [facility] [address] [place] [address] OFFICE VISIT Date of Service: 11/07/17 MR#: [id number] Acct: [id number] Name: ANNA PRICE Rep #: [id number] : 1940 Provider: Stacey Pizano PA-C Age/Sex: 77/F Location: [facility] Status: Signed Intake Intake Visit Reasons: pain at mastectomy site 2017 Chief Comp laint: Encephalopathy Silk Screen Etcher Required: No Is patient in pain?: Yes [...] History Status post gamma knife treatment ([facility] onic) History of modified radical mastectomy of [...] was treated with Gamma Knife treatment at [facility]. Patient had a follow-up MRI of the brain a [facility] which demonstrated dramatic decrease in the size [...] Visit Report Result: Comments: See Note; NOTES: [facility] [address] [place] [address]. [address] [place] [address] OFFICE VISIT Date of Service: 10/31/17 MR#: [id number] Acct: [id number] Name: ANNA PRICE Rep #: [id number] : 1940 Provider: Stacey Pizano PA-C Age/Sex: 77/F Location: [facility] Status: Signed Intake Intake Visit Reasons: pain [...] was treated with Gamma Knife treatment at [facility]. Patient had a follow-up MRI of the brain at [facility] which demonstrated dramatic decrease in the [...] D/C Summary Result: Comments: See Note; NOTES: [facility] Occupational Therapy [facility] [address] [place] [address]. 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 right lat. pinch 8# righ t [...] please fell free to call me at [phone]. Thank you for the referral of this patient. Sincerely, Stephanie Schilling, OTR/L, CHT <Electronically signed by Stephanie Schilling OTR/Lu, CHT> 10/25/17 1053 CC: Stacey bowie PA-C; Tayla Espinal DO DOTTY Signed 16-Oct-2017 OT General Evaluation Result: Comments: See Note; NOTES: [facility] Occupational [facility]. [address] [place], [place] [address] Fax REHABILITATION SERVICES INI TIAL EVALUATION MR#: [id number] Acct: [id number] Name: ANNA BARRERA Rep #: [id number] : 1940 77 From: Stephanie Schilling OTR/L, CHT Referring DrAlondra: Stacey Pizano PAGuyC Status: REG RCR In surance: KRISTEL Pike Date: MEDICARE A ONLY Patient's Visit Information ANNA BARRERA is a 77 year old F, referred to Occupational Therapy by Stacey Pizano, with a diagnosis of Masectomy. Josias e of Evaluation: 10/03/17 Occupational Therapist: Stephanie Schilling, OTR/L, CHT - Subjective Subjective: Pt states she arrives to OT following a Masectomy 1-4-18, 11 nodes removal. ANC chemo- for 4 [...] Left WNL - Strength Shoulder: R/L 4/5 Hospitality House Supervisor: right 45# left 45# Lateral Pinch: right [...] to be FAXED BACK to us at [phone] for Medicare purposes. Please let me know [...] Summary (1) Result: Comments: See Note; NOTES: [facility] Physical Therapy [facility] [address] [place] [address]. [address] [place] [address] Fax REHABILITATION SERVICES NISA GE SUMMARY MR#: [id number] Acct: [id number] Name: ANNA BARRERA Rep #: [id number] : 1940 77 From: Amelie Rodriguez DPT Referring Dr.: Stacey Pizano PA-C Status: REG RCR Insurance: DAYDAY MEDICARE A ONLY HP - PT D/C [...] please feel free to call me at [phone]. Thank you for the referral of this patient. Sincerely, Amelie Rodriguez <Electronically signed by Amelie Rodriguez DPT> 10/10/17 1028 CC: Stacey Pizano PA-C; Tayla Espinal DO ELR Signed 05-Oct-2017 OT General Evaluation Result: Comments: See Note; NOTES: [facility] Occupational Therapy [facility] [address] [place], [place] [address] Fax REHABILITATION SERVICES INI TIAL EVALUATION MR#: [id number] Acct: [id number] Name: ANNA BARRERA Rep #: [id number] : 1940 77 From: Stephanie GANT/Lu, CHT Referring Dr.: Stacey Pizano PAGuyC Status: REG RCR In surance: ANTHCALVIN Pike Date: MEDICARE A ONLY Patient's Visit Information ANNA BARRERA is a 77 year old F, referred to Occupational Therapy by Stacey Pizano, with a diagnosis of Masectomy. Josias e of Evaluation: 10/03/17 Occupational Therapist: Stephanie Schilling, STALIN/L, CHT - Subjective Subjective: Pt states she [...] Left WNL - Strength Shoulder: R/L 4/5 Hospitality House Supervisor: right 45# left 45# Lateral Pinch: right [...] to be FAXED BACK to us at [phone] for Medicare purposes. Please let me know if there are questions or concerns regarding this plan of care. Vladimir peralta Signature: Date: <Electronically signed by Stephanie GANT/Lu, CHT> 10/05/17 0934 CC: Stacey Pizano PA-C; Tayla Espinal DO DOTTY Signed For Medicare only, by signing this I certify the plan of care. Physicians Signature Date 08-Sep-2017 Emergency Department Summary Result: Comments: See Note; NOTES: [facility] Medical Records Department [address] [place] [address] Emergency Department Summary 09/08/17 1630 MR#: [id number] Acct: [id number] Name: ANNA BARRERA Rep #: [id number] : 1940 77 From: Jose May MD PCP: Tayla Espinal DO Status: REG ER ADDENDUM by Srinivas Gabriel on 09/08/17 at 1756 Patient was endorsed to me by the counts include 234 beds at the [facility] physician with instructions to check on [...] 2. Delirium This note was generated with Atoshoation software. It may contain incorrect words, spelling, [...] your Prima Care Provider. Call Doctors Registry ([phone]) or report to the closest Emergency Room. Call 911 if necessary. 09/08/17 1712 <Electronically signed by Jose May MD> Date ___ Jose May MD Cosigner Signature (If Indicated): Date CC: Tayla Espinal DO 08-Sep-2017 Emergency Department Summary Result: Comments: See Note; NOTES: [facility] Medical Records Department [address] [place] [address] Emergency Department Summary 09/08/17 1630 MR#: [id number] Acct: [id number] Name: ANNA BARRERA Rep #: [id number] : 1940 77 From: Jose May MD [...] 2. Delirium This note was generated with [employer] dictation software. It may contain incorrect words, [...] lems, contact your Primary Care Provider. Call [facility] ([phone]) or report to the closest Emergency Room. Call 911 if necessary. 09/08/17 1712 <Electronically signed by Jose iglesias MD> Date Jose May MD Cosigner Signature (If Indicated): Date CC: Tayla Espinal DO 08-Sep-2017 Brain/Head without Contrast Result: Comments: See Note; NOTES: [facility] Imaging Services [address] [facility] [place] [address] Brain/Head without Contrast MR#: [id number] Acct: [id number] Name: ANNA BARRERA Rep #: [id number] : 1940 F 77 From: Nasrin Orta MD PCP: Tayla Espinal DO Status: REG ER Study: Brain/Head without Contrast Date of Exam: 09/08/17 Exam# [id number] Ordering Dr: Jose May STUDY: CT BRAIN [...] Orta MD at 17:11 EDT Tel Direct: [phone], Service support , CC: Jose May MD; Tayla Espinal DO Hydraulic Lift Operator: Signed 08-Sep-2017 Chest 1 View (Portable) Result: Comments: See Note; NOTES: [facility] Imaging Services [address] [place] [address] Chest 1 View (Portable) MR#: [id number] Acct: [id number] Name: ANNA BARRERA Rep #: [id number] : 1940 F 77 From: Nasrin Orta MD PCP: Tayla Espinal DO Status: REG ER Study: Chest 1 View (Portable) Date of Exam: 09/08/17 Exam# [id number] Ordering Dr: Jose May MD STUD Y: [...] Orta MD at 17:17 EDT Tel Direct: [phone], Service s upport , CC: Jose May MD; Tayla Espinal DO Hydraulic Lift Operator: Signed 08-Sep-2017 Abdomen/Pelvis W IV Cont ONLY Result: Comments: See Note; NOTES: [facility] Imaging Services [address] [place] [address] Abdomen/Pelvis W IV Cont ONLY MR#: [id number] Acct: [id number] Name: ANNA BARRERA ep #: [id number] : 1940 F 77 From: Terence Calero MD PCP: Tayla Espinal DO Status: REG ER Study: Abdomen/Pelvis W IV Cont ONLY Date of Exam: 09/08/17 Exam# [id number] Ordering Dr: Jose May MD STUDY: CT [...] CC: Jose May MD; Tayla Espinal DO Hydraulic Lift Operator: Signed 23-Aug-2017 Surgery Visit Report Result: Comments: See Note; NOTES: [facility] [address] [place] [address] [place] [address] OFFICE VISIT Date of Service: 08/23/17 MR#: [id number] Acct: [id number] Name: ANNA BETANCOURT Rep #: [id number] : 1940 Provider: Stacey Garcia Age/Sex: 77/F Location: [facility] Status: Signed Intake Intake Visit Reasons: F/U MASTECTOMY/CEBUL Silk Screen Etcher Required: No Is patient in pain?: No [...] was treated with Gamma Knife treatment at [facility] [place] . She will have a follow up [...] W/WO Contrast Result: Comments: See Note; NOTES: [facility] Imaging Services [address] [place] [address] Brain W/WO Contrast MR#: [id number] Acct: [id number] Name: ANNA BARRERA Rep #: [id number] : 1940 F 77 From: Glenn Taylor DO PCP: Tayla Espinal DO Status: REG CLI Study: Brain W/WO Contrast Date of Exam: 07/31/17 Exam# [id number] Ordering Dr: Ky Burkett DO STUDY: MR [...] lateral ventricle and with a 3 mm ewvu-aa-pmafz shift of the septum pellucidum (coronal T2 [...] surrounding vasogenic edema produ cing a mild ppfi-bp-dejko midline shift and mild mass effect, most [...] CC: Tayla Espinal DO; Ky Burkett DO Hydraulic Lift Operator: Signed 24-Jul-2017 Inital Evaluation (1) - PT Result: Comments: See Note; NOTES: [facility] Physical Therapy [facility]. [address] [place] [address] Fax REHABILITATION SERVICES INITIAL EVALUATION MR#: [id number] Acct: [id number] Name: ANNA BARRERA Rep #: [id number] : 1940 77 From: Amelie Rodriguez DPT Referring Dr.: Stacey Pizano PA-C Status: REG R Insurance: ANTH EM MEDICARE A ONLY Patient's Visit Information ANNA BARRERA is a 77 year old F referred to Physical Therapy by Stacey GARCIA.[facility] with a diagnosis of Left Breast Cancer. [...] Paredes and Dr. Merritt. Sent her to [place]- which she lived in until Monday. Chemo 8x- CT scans- mets on the right lowe r lobe of the lung- Chest wall, fascia, muscle of the chest. Will have another scan at [facility] next monday. Does not have to have [...] to be FAXED BACK to us at [phone] for Medicare purposes. Please let me know if ther e are questions or concerns regarding this plan of care. Physician Signature: Date: <Electronically signed by Amelie Rodriguez DPT&fani p;#62; 07/24/171026 CC: Stacey Pizano PA-C; Tayla Espinal DO ELR Signed For Medicare only, by signing this I certify the plan of care. _ Physicians Signature Date 15-Jul-2017 Discharge Instruction Result: Comments: See Note; NOTES: [facility] Medical Records Department [address] [place] [address] Discharge Instruction 07/15/17 1045 MR#: [id number] Acct: [id number] Name: ANNA PEREZ Rep #: [id number] : 1940 77 From: Tre Mcguire DO [...] your Primary Care Provider. Call [facility] ([phone] ) or report to the closest Emergency Room. Call 911 if necessary. 07/15/17 104 <Electronically signed by Tre Mcguire DO> Date Tre wahl DO Cosigner Signature (If Indicated): Date CC: Tayla Espinal DO 15-Jul-2017 Emergency Department Summary Result: Comments: See Note; NOTES: [facility] Medical Records Department [address] [place] [address] Emergency Department Summary 07/15/17 1042 MR#: [id number] Acct: [id number] Name: ANNA BARRERA Rep #: [id number] : 1940 77 From: Tre Mcguire DO PCP: Tayla Espinal DO Status: REG ER - ER Visit Summary Date of Service: 07/15/17 Chief Complaint: [Diarrhea] History of Present Illness: The patient is a 77 F [presents to the emergency department with symptoms of diarrhea that started this morning around 7 AM. Patient states she has had 3-4 watery stools. Patient is from [facility]. Patient denies any abdominal pain or [...] any fevers. She was told at the [facility] living facility that her temperature was 99.2 and it [...] Impression: [Diarrhea] This note was generated with [employer] dictation software. It may contain incorrect wo [...] unexpected problems, contact your Primary Care Provider. [facility] Doctors Registry ([phone]) or report to the closest Emergency Room. Call 911 if necessary. 07/15/17 1045 <Electronically signed by Tre Mcguire DO> Date Tre Mcguire DO Cosigner Signature (If Indicated): Date CC: Tayla Espinal DO 13-Jul-2017 Surgery Visit Report Result: Comments: See Note; NOTES: [facility] [address] [address] OFFICE VISIT Date of Service: 07/12/17 MR#: [id number] Acct: [id number] Name: ANNA BETANCOURT Rep #: [id number] : 1940 Provider: Stacey Garcia Age/Sex: 77/F Location: [facility] Status: Signed Intake Intake Visit Reasons: F/U MASTECTOMY/CEBUL Silk Screen Etcher Required: No Is patient in pain?: Yes [...] patient - May return to therapy at [facility] - Prescription for mastectomy bras was provided [...] Visit Report Result: Comments: See Note; NOTES: [facility] [address] [place] [address] OFFICE VISIT Date of Service: 06/27/17 MR#: [id number] Acct: [id number] Name: SAGRARIOGABINOTIFFANYANNA Garnica Rep #: [id number] : 1940 Provider: Stacey Garcia Age/Sex: 77/F Location: [facility] Status: Signed Intake Intake Visit Reasons: F/U MASTECTOMY/CEBUL Chief Complaint: left mastectomy RC Silk Screen Etcher Required: No Is patient in pain?: No [...] Lead Electrocardiogram Result: Comments: See Note; NOTES: [facility] Cardiovascular Services [address] [place] [address] 12 Lead EKG 06/17/17 1008 MR#: [id number] Acct: [id number] Name: ANNA BARRERA Rep #: [id number] : 1940 76 From: Delvin Coleman MD Attending Dr: Josh Merritt MD Status: PRE [facility] Ordering Dr: Josh Merritt MD Date: 06/17/17 Location: [facility] Sex: F C Admitted: Test Reason : P REOP Blood Pressure : / mmHG Vent. Rate : 075 BPM Atrial Rate : 075 BPM P-R Int : 168 ms QRS Dur : 096 ms QT Int : 386 ms P-R-T Axes : 041 -23 060 degrees QTc Int : 431 ms Normal sinus rhythm Bor derline ECG Confirmed by DELVIN COLEMAN MD ([id number]), editor farm journal DANIELLE STAHL (56) on 06/21/2017 3:06:43 PM Referred By: TOBY Confirmed By:DELVIN COLEMAN MD 06/21/17 1506 Date Delvin Coleman MD CC: Tayla Kylie DO Signed 01-Jun-2017 Surgery Visit Report Result: Comments: See Note; NOTES: [facility] [address] [facility] [address] [place] [address] OFFICE VISIT Date of Service: 05/30/17 MR#: [id number] Acct: [id number] Name: ANNA BETANCOURT Rep #: [id number] : 1940 Provider: Stacey Garcia Age/Sex: 76/F Location: [facility] Status: Signed Intake Vital Signs05/30/17 Height 5 ft 5 in 05/30/17 Weight: 145 lb Int grayson Visit Reasons: Update H AND P.el Silk Screen Etcher Required: No Is patient in pain?: No [...] illness. Patient's previous history per Dr. Merritt: Reasonably compli cated 76-year-old female. She was referred by her [facility] Dr. Ky Burkett for surgical treatment of her left breast cancer. She was hospitalized at the [facility] January 10, 2017 becaus mac of uncontrolled [...] Department Summary Result: Comments: See Note; NOTES: [facility] Medical Records Department [address] [place] [address] Emergency Department Summary 03/15/172011 MR#: [id number] Acct: [id number] Name: ANNA BARRERA Rep #: [id number] : 1940 76 From: Munir Kennedy MD PCP: Tayla Espinal DO Status: DEP ER - ER Visit Summary Date of Service: 03/15/17 Chief Complaint: [] Right ankle pain and passed out. History of Present Illness: The patient is a 76 F [] here with family after button reclaimer arrival. Patient states that she stepped off [...] your Primary Care Provider. Call [facility] Registry ([phone]) or report to the closest Emergency Room. Call 911 if necessary. 03/30/17 0957 <Electronically signed by Munir Kennedy MD> Date Munir Kennedy MD Cosigner Signature (If Indicated): Date CC: Tayla Espinal DO 17-Mar-2017 12 Lead Electrocardiogram Result: Comments: See Note; NOTES: [facility] Cardiovascular Services [address] [place] [address] 12 Lead EKG 03/15/17 1407 MR#: [id number] Acct: [id number] Name: ANNA BARRERA Rep #: [id number] : 1940 76 From: Delvin Coleman MD [...] ECG Confirmed by DELVIN COLEMAN MD ([id number]), editor farm journal DANIELLE STAHL (56) on 03/17/2017 2:36:13 PM Referred By: DOUGIE Confirmed By:DELVIN COLEMAN MD 03/17/17 1436 Date Delvin Coleman MD CC: Tayla Espinal DO Date Dictated: 03/15/171406 Date Transcribed: 03/15/171406 Hydraulic Lift Operator: Signed 15-Mar-2017 Emergency Department Summary Result: Comments: See Note; NOTES: [facility] Medical Records Department [address] [place] [address] Emergency Department Summary 03/15/17 1528 MR#: [id number] Acct: [id number] Name: ANNA BARRERA Rep #: [id number] : 1940 76 From: Munir Kennedy MD [...] your Primary Care Provider. Call [facility] ([phone]) or report to the closest Emergency Room. Call 911 if necessary. 03/15/17 1530 <Electronically signed by Munir Kennedy MD> Date Munir Kennedy MD Cosigner Signature (If Indicated): Date CC: Tayla Espinal DO 15-Mar-2017 Ankle min 3 Views Result: Comments: See Note; NOTES: [facility] Imaging Services [address] [place] [address] Ankle min 3 Views MR#: [id number] Acct: [id number] Name: ANNA BARRERA Rep #: [id number] : 1940 F 76 From: Asa Verma MD PCP: Tayla Espinal DO Status: REG ER Study: Ankle min 3 Views Date of Exam: 03/15/17 Exam# [id number] Ordering Dr: Munir Kennedy MD STUDY: X-RAY [...] Asa Verma MD at 14:22 EDT Tel [phone], Service support , CC: Munir Kennedy MD; Tayla Espinal DO Hydraulic Lift Operator: Signed 06-Feb-2017 Emergency Department Summary Result: Comments: See Note; NOTES: [facility] Medical Records Department [address] [place] [address] Emergency Department Summary 02/06/17 1134 MR#: [id number] Acct: [id number] Name: ANNA BARRERA Rep #: [id number] : 1940 76 From: Srinivas Gabriel MD PCP: Tayla Espinal DO Status: [facility] ER - ER Visit Summary Date of Service: 02/06/17 Chief Complaint: Wound check Hist ory of Present Illness: The patient is a 76 F presenting due to concern for a wound infection. Patient has a history of a fungating left breast mass that is been complicated by having bleeding on dressi ng changes. senior living staff was concerned for the possibility of [...] dressing [facility] and requested referral to wound care. I [...] Additional Instructions: Fol low-up with wound care [phone] What to do if you have Problems For any increased pain, shortness of breath, bleeding, nausea or vomiting, chest pain, or any unexpected problems, contact your [facility] Care Provider. Call Doctors Registry ([phone]) or report to the closest Emergency Room. Call 911 if necessary. 02/06/17 1723 <Electronically signed by Srinivas Gabriel MD> Da te Srinivas Gabriel MD Cosigner Signature (If Indicated): Date CC: Tayla Espinal 10-Jan-2017 Chest WITH Contrast Result: Comments: See Note; NOTES: [facility] Imaging Services [address] [place] [address] Verdana 4d Chest WITH Contrast MR#: [id number] Acct: [id number] Name: ANNA BARRERA Rep #: [id number] : 1940 F 76 From: Asa Verma MD PCP: Tayla Espinal DO Status: REG ER Study: Chest WITH Contrast Date of Exam: 01/10/17 Exam# [id number] Ordering Dr: Nasrin Lizama STUDY: CT CHEST [...] Asa Verma MD at 10:40 EDT Tel [phone], Service support , CC: Nasrin Lziama MD; Tayla Espinal DO Hydraulic Lift Operator: Signed 03-Jul-2015 PT D/C Summary Result: Comments: See Note; NOTES: [facility] Physical Therapy [facility] [facility] [place] [address] Fax REHABILITATION RVICES DISCHARGE SUMMARY MR#: [id number] Acct: [id number] Name: ANNA BARRERA Rep #: [id number] : 1940 75 From: Amelie Rodriguez Referring [...] is planning on continuing with a personal vehicle advisor and dileep robledo. - Objective Objective/Function: [...] feel free to call me a t [phone]. Thank you for the referral of this patient. Sincerely, Amelie Rodriguez <Electronically signed by Amelie Rodriguez > 07/03/15 1031 CC: Elizabeth Villanueva; Tayla Espinal DO ELR Signed 10-Jun-2015 Re-Evaluation - PT Result: Comments: See Note; NOTES: [facility] Physical Therapy [facility] [facility] [place], [place] [address] Fax [facility] / [facility] PH[facility]ERAP[facility] MR#: [id number] Acct: [id number] Name: ANNA BARRERA Rep #: [id number] : 1940 74 From: Amelie Rodriguez Referring [...] do not hesitate to contact me at [phone] by phone or if you have questions or concerns regarding this new plan of care! Sincerely, Amelie Rodriguez <Electronically signed by Amelie Rodriguez > 06/10/15 1058 CC: Elizabeth Espinal DO ELR Signed For Medicare only, by signing this I certify the plan of care. Physicians Signature Date 19-May-2015 Inital Evaluation - PT Result: Comments: See Note; NOTES: [facility] Physical Therapy [facility]. [address] [place], [place] [address] Fax REHABILITATION SE ELIZA INITIAL EVALUATION MR#: [id number] Acct: [id number] Name: ANNA BARRERA Rep #: [id number] : 1940 74 From: Amelie Rodriguez Referring Dr.: Elizabeth Villanueva Status: REG RCR Insuranc e: ANTHEM Eval Date: Patient's Visit Information ANNA BARRERA is [...] and audrey horses in her calf. Worst: /10, Best: 3/10- Dull and Achy- Constant. No [...] in the AM and meets with a psychiatry instructor 1x a week. - Objective Posture: [...] to be FAXED BACK to us at [phone] for Medicare purposes. Please let me know if there are questions or conc erns regarding this plan of care. Physician Signature: Date: <Electronically signed by Amelie Rodriguez > 05/19/15 1445 CC: Elizabeth Espinal DO ELR Signed For Medicare only, by signing this I certify the plan of care. Physicians Signature Date 11-May-2015 Knee 4 or More Views Result: Comments: See Note; NOTES: [facility] Imaging Services [address] [place] [address] Verdana 4d Knee 4 or More Views MR#: [id number] Acct: [id number] Name: ANNA PRICE #: [id number] : 1940 F 74 From: Afshin Gant DO PCP: Tayla Espinal DO Status: REG CLI Study: Knee 4 or More Views Date of Exam: 05/11/15 Exam# [id number] Ordering Dr: Elizabeth Richards STUDY: X-RAY - [...] Afshin Gant DO at 9:20 EST Tel [phone], Service support [phone], RAD/Knee 4 or More Views IMPRESSION: Degenerative arthrosis. Electro nically Signed: Afshin Gant DO at 9:20 EST Tel [phone], Service support [phone], CC: Elizabeth Villanueva; Tayla Espinal DO Hydraulic Lift Operator: Signed 30-Oct-2014 Bilat Scrn Digital AND CAD Result: Comments: See Note; NOTES: [facility] Imaging Services [address] [place] [address] Breast Imaging Report MR#: [id number] Acct: [id number] Name: ANNA BARRERA Re p #: [id number] : 1940 F 74 From: Afshin Gant DO PCP: Tayla Espinal DO Status: REG CLI Study: Bilat Scrn Digital AND CAD Date of Exam: 10/30/14 Exam# [id number] Ordering Dr: Douglas Espinal DO MAMMOGRAPHY - [...] Afshin Gant DO at 14:34 EDT Tel [phone], Service support [phone], CC: Tayla Espinal DO Hydraulic Lift Operator: Signed 30-Oct-2014 Dexa Bone Density Study (HP) Result: Comments: See Note; NOTES: [facility] Imaging Services [address] [place] [address] Bone Density Report MR#: [id number] Acct: [id number] Name: ANNA BARRERA Rep #: [id number] : 1940 F 74 From: Asa Verma MD PCP: Tayla Espinal DO Status: REG CLI Study: Dexa Bone Density Study (HP) Date of Exam: 10/30/14 Exam# [id number] Ordering Dr: Tayla Espinal DO STUDY: DUAL [...] Asa Verma MD at 8:23 EDT Tel [phone], Service support [phone], CC: Tayla Espinal DO Hydraulic Lift Operator: Signed 12-Nov-2013 OT Discharge Summary Result: Comments: See Note; NOTES: [facility] Occupational Therapy [address] [place] [address] Fax REHABILITATION SERVIC ES DISCHARGE SUMMARY MR#: [id number] Acct: [id number] Name: ANNA BARRERA Rep #: [id number] : 1940 73 From: Stephanie Schilling Referring [...] discharged. Stephanie Schilling OTR/L T: NTS JOB: [id number] <Electronically signed by Stephanie Schilling > 11/12/13 [...] smoker Vital Signs Date Test Result Details :13 Temperature 97.4 f Comments: Method: Temporal Pulse [...] PATIENT NOT FASTINGPERFORMED BY: JOSE DAVID [facility] Jbqfie2706 [facility] [id number] HORMONE) (77972) TSH 0.076 {uIU/mL} (Abnormal) Range: 0.450-4.500 79-Brq-733408:31 T3, FREE (TRIDOTHYRONINE) (49406) Comments: PATIENT NOT FASTINGPERFORMED BY: JOSE DAVID [facility] Bseesv8073 [address] Roadbl[address] [place] [id number] Triiodothyronine (T3), Free 3.1 pg/mL (Normal) Range: 2.0-4.4 45-Iku-617983:31 T4, FREE (THYROXINE) (83899) Comments: PATIENT NOT FASTINGPERFORMED BY: CB [facility] Wexhvv7195 [address] Road[address] [place] [id number] T4,Free(Direct) 2.14 ng/dL (Abnormal) Range: 0.82-1.77 35-Auy-655574:31 TSH (THYROID STIMULATING Comments: PATIENT NOT FASTINGPERFORMED BY: CB [facility] Ucxxrq3936 [address] [facility] [place] [id number] HORMONE) (47736) TSH 0.058 {uIU/mL} (Abnormal) Range: 0.450-4.500 73-Pgd-305609:52 CALCIFEDIOL (87534) Comments: PATIENT NOT FASTINGPERFORMED BY: [facility] Cqkrmu0106 [address] [facility] [place] [id number] Vitamin D, 25-Hydroxy 20.8 ng/mL (Abnormal) Range: 30.0-100.0 Comments: Vitamin D deficiency has been defined by the [place] of[facility], [place] and an Endocrine Society practice guideline as alevel of serum 25-OH vitamin D less than 20 ng/mL (1,2).The Endocrine Society went on to further define vitamin Dinsufficiency as a level between 21 and 29 ng/mL (2).1. IOM ([place] of Medicine). 2010. Dietary reference intakes for calcium and D. [place]: The National Academies Press.2. Ham MF, Alvino NC, Ileana AYALA, et al. Evaluation, treatment, and prevention of vitamin D deficiency: an Endocrine Society clinical practice guideline. JCEM. 2010; 96(7):1911-30. 10-Rbj-822938:52 MICROALBUMIN: CREATININE RATIO Comments: PATIENT NOT FASTINGPERFORMED BY: [facility] Mnpdnk4491 [facility] [id number] (31445) AND (19396) Alb/Creat Ratio <22.6 {mg/g_creat} (Normal) Range: 0.0-30.0 Albumin, Urine <3.0 ug/mL (Normal) Creatinine, Urine 13.3 mg/dL (Normal) 74-Wxk-035938:52 METABOLIC PANEL, COMPREHENSIVE Comments: PATIENT NOT FASTINGPERFORMED BY: [facility] Rqstfx6500 [facility] [id number] (14734) ALT (SGPT) 12 [iU]/L (Normal) Range: 0-32 [...] 8-27 Glucose 86 mg/dL (Normal) Range: 65-99 28-Vzi-508679:52 CBC W/AUTO DIFF WBC (72230) Comments: PATIENT NOT FASTINGPERFORMED BY: [place] 1063970 [facility] [id number] Immature Grans (Abs) 0.0 {x10E3/uL} (Normal) Range: [...] 3.77-5.28 WBC 4.9 {x10E3/uL} (Normal) Range: 3.4-10.8 30-Njd-875770:52 TSH (53722) Comments: PATIENT NOT FASTINGPERFORMED BY: [place] 1737970 [facility] [id number] TSH 0.032 {uIU/mL} (Abnormal) Range: 0.450-4.500 88-Ver-354455:52 T4, FREE (THYROXINE) (23626) Comments: PATIENT NOT FASTINGPERFORMED BY: [place] 1737970 [facility] [id number] T4,Free(Direct) 2.26 ng/dL (Abnormal) Range: 0.82-1.77 91-Yiv-234737:52 T3, FREE (TRIDOTHYRONINE) (47092) Comments: PATIENT NOT FASTINGPERFORMED BY: [facility] Cozwsy25[address] [id number] Triiodothyronine,Free,Serum 3.6 pg/mL (Normal) Range: 2.0-4.4 07-Zkz-197762:50 Urinalysis, Complete Comments: Order Date: 09/08/17How was Urine Obtained? PAYROLL TAX SPECIALIST TO [facility]IFY[facility] [address] [place], [place], [id number] MUCUS, URINE 0 SEEN {/hpf} (Normal) BACTERIA [...] (Normal) CLARITY Clear (Normal) COLOR Straw (Normal) 18-Eqb-255516:20 CBC W/Diff, Automated Comments: [facility] Utawmkzdlt0096 [facility] [place], [address] PATH REV May foll (Normal) Absolute Lymph 0.49 {X10_3/ul} (Abnormal) [...] 4.2-5.4 WBC 2.9 K/mm3 (Abnormal) Range: 4.4-11.0 30-Uix-845369:20 Comprehensive Metabolic Profil Comments: 'TROP' Serial specimen #1, #2, #3, or #4: 1[facility] [address]gdf7156 [place], [place], [address] GAP 5 (Normal) Range: 5-15 CO2 31.0 mmol/L (Normal) Range: 21.0-32.0 CL 102 mmol/L (Normal) Range: 98-107 K 3.6 mmol/L (Normal) Range: 3.5-5.1 NA 138 mmol/L (Normal) Range: 136-145 T BILI 0.40 mg/dL (Normal) Range: 0.20-1.00 ALT 88 U/L (Abnormal) Range: 13-56 Comments: Please note revised ALT reference range euqrmqzfb21/28/2018. ALK P 95 U/L (Normal) Range: 45-117 [...] A.D.A. criteria.Please note revised GLUCOSE reference range yxfjxjlyl68/02/2018. 54-Ouh-226280:20 Lipase Comments: 'TROP' Serial specimen #1, #2, #3, or #4: [address] [place] [address] [place], [address] LIPASE 389 U/L (Normal) Range: 73-393 74-Dlw-744921:20 Troponin-I Comments: 'TROP' Serial specimen #1, #2, #3, or #4: [address] [place] [address] [place], [address] TROPONIN-I < 0.02 ng/mL (Normal) Comments: TROPONIN-I EXPECTED VALUES <0.05 NEGATIVE 0.06 - 0.59 AT RISK OF AR > OR = 0.60 SUGGEST AR 04-Mut-23080:50 Basic Metabolic Profile (BMP) Comments: [facility] [address] [place], [address] GAP 9 (Normal) Range: 5-15 CO2 24.0 [...] 7-18 GLU 100 mg/dL (Normal) Range: 70-110 36-Scd-35208:50 CBC W/Diff, Automated Comments: [facility] [address] [place], [address] SMEAR COMMENT SCANNED (Normal) Absolute Lymph 0.40 [...] -Jun-2017 BREAST MASTECTOMY (CHOOSE See Note Comments: [facility] [address] [place], [place], [address] 7:15 SIDE (Normal) Comments: Patient: ANNA BARRERA : 1940 (77/F) Acct Num: [id number] Phys: Shaina ESTEBAN,Josh Unit Num: [id number] Loc: [facility] [place] Specimen: [id number] Received: 06/22/17936 Spec Type: B [...] node measures 3.5 cm in greatest dimension. Forming Acid Dumper sections are subm itted as follows: 1 [...] superior, inferior and posteri or margin, 15-17 housing management representative sections from the other areas, 18 multiple lymph nodes, 19-21 each cassette containing one bisected lymph node, 22 two lymph nodes, 23 AND 24 one lymph node, 2 5 AND 26 one lymph node. / SJ:blanco 06/23/17 TC:0 CPT: 71787 HEADER OPERATION: Left modified radical mastectomy PRE-OP [...] previously performed on section of tumo r ([id number] / MP79-710). 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 PATHOLOGIC STAGE: p T1a(y) pN0 Mx The above summary is in compliance with College of [employer] Pathology (CAP) Cancer Protocols Checklist and [place] Joint Committee on Cancer (AJCC), Staging Manual, 7th Ed. SJ:blanco 06/26/17 Signed Young Malcolm 06/26/17 <signature on file> 22-Jun-2017 IMMUNOHISTOCHEMISTRY See Note Comments: [facility] [address] [place], [place], [address] 0:00 (Normal) Comments: Patient: ANNA BARRERA : 1940 (77/F) Acct Num: [id number] Phys: Josh Merritt MD Unit Num: [id number] Loc: [facility] [place] Specimen: [id number] Received: 06/26/17 - 1201 Spec Type: IMMUNO TISSUES TISSUES: Left breast, NOS SPECIMEN INFORMATION: Tissue Source: Left breast and axillary contents Clinical Info: Left breast cancer Specimen Number: [id number] #6 AND 24 CPT code: 57953, 86140 x3 METHODOLOGY: Deparaffinized sections of prefer/formalin-fixed tissue [...] developed and their performance characteristics determined by [facility]. They may not have been cleared [...] the above diagnosis. IDC:AM PHYSICIAN AND INSTITUTION [facility] [address] [place], [place] [address] Signed Young Serrain 06/27/17 <signature on file> 32-Ybv-53187:57 Basic Metabolic Profile (BMP) Comments: [facility] Hnaeaneozw6018 [facility] [address] [place], [place], [address] GAP 6 (Normal) Range: 5-15 CO2 31.0 [...] :57 CBC-Complete Blood Cnt No Diff Comments: [facility] Gmvbdsjqky0586 [facility] [address] [place], [place], [address] MPV 9.5 fL (Normal) Range: 6.2-12.0 PLT [...] 4.2-5.4 WBC 3.9 K/mm3 (Abnormal) Range: 4.4-11.0 84-Omk-31187:57 Thyroid Stim Hormone (TSH) Comments: [facility] [address] [place], [address] TSH 0.26 {uIU/mL} (Abnormal) Range: 0.358-3.74 11-Nzh-426245:08 Basic Metabolic Profile (BMP) Comments: [facility] [address] [place], [address] GAP 7 (Normal) Range: 5-15 CO2 27.0 [...] 7-18 GLU 108 mg/dL (Normal) Range: 70-110 65-Tqw-125218:30 Culture, Sputum Comments: [facility] [address] [place], [place], [address] [facility] See Note (Normal) Comments: Gram StainAcceptable Specimen? Yes (<25 Epithelial cells per/lpf) Gram Stain 1+ White Blood Cells No Epithelial cells 2+ Gram positive cocci in clusters Resp. CultureMixed normal respirat ory anita. No Haemophilus, Streptococcus pneumoniae, beta-hemolytic Streptococcus or Staphylococcus aureus isolated. ORGANISM 1: YeastAmount Growth Rare 92-Mjc-783478:00 Culture, Sputum Comments: [facility] [address] [place], [place], [address] CUS See Note Comments: Gram StainAcceptable Specimen? Yes [...] <=20 S(NF) indicates non-formulary veena g at [facility]. Approval by Infectious Disease Specialist required before non-formulary drugs may be ordered and/or dispensed. BREAST BIOPSY (CHOOSE SITE) See Note Comments: [facility] [address] [place], [address] 716:06 (Normal) Comments: Patient: ANNA BARRERA : 1940 (76/F) Acct Num: [id number] Phys: Ceferino Morales MD Unit Num: [id number] Loc: [facility] Specimen: [id number] Received: 01/18/17 - 1024 Spe c Type: BREAST BX TISSUES TISSUES: COMMENT Immunohistochemistry ([id number]) supports the above diagnosis. 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 Case is reviewed in consultation with Dr. Ibarra of [employer] [employer]. The complete consultative report is viewable in [...] intwo cassettes. / AM:blanco 01/18/17 TC:0 CPT: 92729 HEADER OPERATION: Left breast core biopsy PRE-OP DIAGNOSIS: Breast cancer TISSUE SUBMITTED: Left breast core biopsy ISCHEMIC TIME: 18 minutes FIXATION TIME: 17 hours MICROSCOPIC DESCRIPTION Sli diana are reviewed. MICROSCOPIC DIAGNOSIS Left breast, core biopsy: Poorly differentiated ductal carcinoma. AM:blanco 01/19/17 Signed Deo Kayla 01/30/17 <signature on file> IMMUNOHISTOCHEMISTRY See Note Comments: [facility] [address] [place], [place], [address] 70:00 (Normal) Comments: Patient: ANNA BARRERA : 1940 (76/F) Acct Num: [id number] Phys: Andrew ESTEBAN,Ceferino Unit Num: [id number] Loc: [facility] Specimen: [id number] Received: 01/19/17 - 1031 Spe c Type: IMMUNO TISSUES TISSUES: SPECIMEN INFORMATION: Tissue Source: Left breast core biopsy Clinical Info: Breast cancer Specimen Number: [id number] #1 CPT code: 93572, 58910 x22, 67319 x3 METHODOLOGY: Deparaffinized sections of prefer/formalin- fixed [...] ER (clone 6F11) 38%, weak to moderate WV (clone 16/1E2) 0% Her-2Neu (clone CB11) 0 The prognostic test for HER2 is performed on formalin-fixed paraffin embedded tissue. A 3+ (positive) staining pattern is defined as intense, homogeneous, complete, circumferential membran ous staining in >10% of contiguous tumor cells. A similar weak (2+) staining pattern is interpreted as equivocal. JENNA follow-up testing is recommended for all equivocal cases. Positivity/negativity for ER/WV is reported if > or < 1% of the tumor cells are immuno- reactive, respectively. The ASCO/CAP criteria is used for scoring. Reference: Journal of Clinical Oncology, 2013; 31:9173-7789 AN D 2010; 16:1060-7681. Duration of fixation: 17 Hrs; Sample Adequate: Yes. These assays have not been validated on decalcified tissues. Results should beinterpreted with caution given the likelihoo d of false negativity on decalcifiedspecimens. These tests were developed and their performance characteristics determined by [facility]. They may not have been cleared [...] reviewed in consultation with Dr. Ibarra of [facility]. Complete consultative report is viewable in patient's EMR Case has been reviewed in consultation with Dr. Malcolm who concurs with the abovediagnosis. IDC:SJ PHYSICIAN AND INSTITUTION [facility] [address] [place], [place] [address] Signed Deo Kayla 01/30/17 <signature on file> :04 Basic Metabolic Profile (BMP) Comments: [facility] Mnhmmnqigz9421 [facility] [place], [place], [address] GAP 6 (Normal) Range: 5-15 CO2 30.0 [...] A.D.A. criteria. :04 CBC W/Diff, Automated Comments: [facility] Qgubuhlfkh2559 [facility] [place], [address] Absolute Lymph 1.46 {X10_3/ul} (Normal) [...] Range: 4.4-11.0 :04 Partial Thromboplast Time Comments: [facility] [address] [place], [address] PTT 26.4 s (Normal) Range: 24.1-36.2 :04 Prothrombin Time w/INR Comments: [facility] [address] [place], [address] INR 1.0 (Normal) PROTIME 12.7 s (Normal) Range: 11.7-14.9 :05 CBC W/Diff, Automated Comments: [facility] [address] [place], [address] Absolute Lymph 2.04 {X10_3/ul} (Normal) Range: 0.83-4.51 [...] Range: 4.4-11.0 :05 Comprehensive Metabolic Profil Comments: [facility] [address] [place], [place], [address] GAP 7 (Normal) Range: 5-15 CO2 30.0 [...] 7-18 GLU 94 mg/dL (Normal) Range: 70-110 11-Dmn-24350:05 Lipid Profile Comments: [facility] [address] [place], [address] VLDL 10 mg/dL (Normal) Range: 5-40 LDL [...] High Risk :05 Microalb:Creat Ratio,Random UR Comments: [facility] [address] [place], [address] MALB:CREAT 8.6 {mg/g_CRE} (Normal) MICROALBUMIN,UR 5.8 mg/L (Normal) UR CREAT 67.00 mg/dL (Normal) :05 Thyroid Stim Hormone (TSH) Comments: [facility] Ialacbyvbs0387 [facility] [address], [address] TSH 0.65 {uIU/mL} (Normal) Range: 0.358-3.74 :05 Urinalysis, Routine (Dipstick) Comments: How was Urine Obtained? [facility] Wsyujhjmyt4262 [facility] [place], [address] LEUK ESTERASE 100 /ul (Abnormal) OCCULT BLOOD-UR 25 /ul (Abnormal) NITRITE UR Negative (Normal) UROBILI Normal mg/dL (Normal) PROT DIPSTX Negative mg/dL (Normal) pH UR 6.5 (Normal) Range: 5.0 - 8.0 SP.GR. DIPSTX 1.010 (Normal) Range: 1.002-1.030 KETONE UR Negative mg/dL (Normal) BILIRUBIN URINE Negative mg/dL (Normal) GLUCOSE, UR Normal mg/dL (Normal) CLARITY Clear (Normal) COLOR Yellow (Normal) 79-Ihz-257076:08 TSH (87190) Comments: PATIENT NOT FASTINGPERFORMED BY: [facility] Xclvhl2190 [facility] [id number] Information: [id number] TSH 1.080 {uIU/mL} (Normal) Range: 0.450-4.500 :06 CBC W/Diff, Automated Comments: Test performed at:[facility] Ymfmviitnx8755 [facility] [place] [address] Absolute Lymph 2.22 {X10_3/ul} (Normal) [...] 21-Nov-20146:06 Comprehensive Metabolic Profil Comments: Test performed at:[facility] [address] [place], [place] [address] GAP 4 (Abnormal) Range: 5-15 CO2 31.0 [...] 70-110 :06 Lipid Profile Comments: Test performed at:[facility] Tcjvpoiocf8674 [facility] [place] [address] VLDL 11 mg/dL (Normal) Range: [...] :06 Microalb:Creat Ratio,Random UR Comments: Test performed at:[facility] Itrjyxffjs7239 [facility] [place] [address] MALB:CREAT 21.7 {mg/g_CRE} (Normal) MICROALBUMIN,UR 7.8 mg/L (Normal) UR CREAT 35.8 mg/dL (Normal) :06 Thyroid Stim Hormone (TSH) Comments: Test performed at:[facility] Tqkiflyaje9635 [facility] [place] [address] TSH 0.46 {uIU/mL} (Normal) Range: 0.358-3.74 :06 Urinalysis, Routine (Dipstick) Comments: How was Urine Obtained? CLEAN CATCHTest performed at:[facility] [address] [place] [address] ; will review at 11/26 appt LEUK [...] :06 Vitamin D,25 Hydroxy Comments: Test performed at:[facility] [address] [place] [place] [address] Vitamin D 25-OH 23.4 ng/mL (Normal) Comments: Vitamin D 25(OH) Status Range Deficiency <20 ng/mL (50nmol/L) Insuffciency 20 - 30 ng/mL (50 - 75 nmol/L) Sufficiency 30 - 100 ng/mL (75 - 250 nmol/L) Toxicity >100 ng/mL (>250 nmol/L) 17-Sep-20139:09 TSH (94583) Comments: PATIENT NOT FASTINGPERFORMED BY: [facility]6370 [facility] [id number] Information: 625562, [id number] TSH 1.860 {uIU/mL} (Normal) Range: 0.450-4.500 89-Tsz-285129:27 TSH (24290) Comments: PATIENT NOT FASTINGPERFORMED BY: [facility]6370 [facility] [id number] Information: [id number] TSH 1.760 {uIU/mL} (Normal) Range: 0.450-4.500 23-Sep-20116:05 [...] 4.2-5.4 WBC 6.4 K/mm3 (Normal) Range: 4.4-11.0 23-Sep-20116:05 CMP GAP 7 (Normal) Range: 5-15 CO2 [...] D deficiency has been defined by the [place] ofMedicine and an Endocrine Society practice guideline as alevel of serum 25-OH vitamin D less than 20 ng/mL (1,2).The Endocrine Society went on to further define vitamin Dinsufficiency as a level between 21 and 29 ng/mL (2).1. IOM ([place] of Medicine). 2010. Dietary reference intakes for calcium and D. [place]: The National Academies Press.2. Ham MF, Alvino NC, Ileana AYALA, et al. Evaluation, treatment, and prevention of vitamin D deficiency: an Endocrine Society clinical practice guideline. JCEM. 2010; 96(7): 1911-30.Performed at: [facility] [employer] [id number] Director: Stephanie Young MD, Phone: [phone] :[phone] TSH (69550) Comments: PATIENT NOT FASTINGPERFORMED BY: [address] [id number] Information: 206503,[id number] TSH 2.940 {uIU/mL} (Normal) Range: 0.450-4.500 :43 CALCIFIDIOL (77041) VIT D 25 Comments: PATIENT NOT FASTINGPERFORMED BY: [address] [id number] Vitamin D, 25-Hydroxy 24.5 ng/mL (Abnormal) Range: 32.0-100.0 Comments: Recent studies consider the lower limit of 32.0 ng/mL to be athreshold for optimal health.Larry BARRERA. J Nutr. 2004;135(2):317-22. 05-Adz-789924:08 PARATHORMONE (07212) Comments: PATIENT NOT FASTINGPERFORMED BY: [address] [id number] Information: [id number] PTH, Intact 47 pg/mL (Normal) Range: 15-65 23-Sep-20108:06 Microscopic Examination Comments: PATIENT NOT FASTINGPERFORMED BY: [address] [id number] Bacteria Few (Normal) Mucus Threads Present (Normal) Epithelial Cells (non renal) None seen {/hpf} (Normal) Range: 0 - 10 RBC None seen {/hpf} (Normal) Range: 0 - 3 WBC 0-5 {/hpf} (Normal) Range: 0 - 5 :06 Vitamin D Hydroxy (98909) Comments: PATIENT NOT FASTINGPERFORMED BY: [employer] [facility] E[address]rzp7874 [address] Road[address]ublin [place] [id number] Vitamin D, 25-Hydroxy 27.0 ng/mL (Abnormal) Range: 32.0-100.0 Comments: Recent studies consider the lower limit of 32.0 ng/mL to be athreshold for optimal health.Larry BW. J Nutr. 2004;135(2):317-22. :06 TSH (71187) Comments: PATIENT NOT FASTINGPERFORMED BY: CB [facility] Fatbjc[address] [place] [id number] TSH 4.620 {uIU/mL} (Abnormal) Range: 0.450-4.500 :06 URINALYSIS, W/ MICRO (41158) Comments: PATIENT NOT FASTINGPERFORMED BY: CB [facility] Oapfvq2947 [address] [place] [id number] Microscopic Examination MICRON (Normal) Comments: Microscopic follows if indicated. Microscopic Examination See below: (Normal) Nitrite, Urine Negative (Normal) Bilirubin Negative (Normal) Ketones Negative (Normal) Occult Blood Negative (Normal) Urobilinogen,Semi-Qn 0.2 mg/dL (Normal) Range: 0.0-1.9 Glucose Negative (Normal) Protein Negative (Normal) Appearance Clear (Normal) Urine-Color Yellow (Normal) WBC Esterase Negative (Normal) pH 6.5 (Normal) Range: 5.0-7.5 Specific [place] 1.007 (Normal) Range: 1.005-1.030 :06 MICROALBUMIN: CREATININE RATIO Comments: PATIENT NOT FASTINGPERFORMED BY: CB [facility] [address]qv[address]Abroad[place] [place] [id number] ([address]) AND (96234) Microalb/Creat Ratio 13.5 {mg/g_creat} (Normal) Range: 0.0-30.0 Creatinine, Urine 19.3 mg/dL (Normal) Range: 15.0-278.0 Microalbumin, Urine 2.6 ug/mL (Normal) Range: 0.0-17.0 23-Sep-20108:06 METABOLIC PANEL, COMPREHENSIVE Comments: PATIENT NOT FASTINGPERFORMED BY: [facility] [id number] [id number] ([id number]) Alkaline Phosphatase, S 81 [iU]/L (Normal) Range: [...] Comments: PATIENT NOT FASTINGPERFORMED BY: JOSE DAVID [facility]Co[facility] InstituteOvvbyh2368 [facility] [id number] Information: [id number] ([id number]) Immature Grans (Abs) 0.0 {x10E3/uL} (Normal) Range: [...] 11.6-14.6 WBC 6.9 K/mm3 (Normal) Range: 4.4-11.0 95-Mxf-98970:05 COMP METABOLIC CO2 30.0 mmol/L (Normal) Range: [...] CHOL 191 mg/dL (Normal) Comments: <200 mg/dL Cdvehjfzp777-534 mg/dL Borderline>240 mg/dL High Risk HDL 57 [...] {uIU/mL} (Normal) Range: 0.358-3.74 :05 VIT D,25 84285 29.2 ng/mL (Abnormal) Range: 32.0-100.0 Comments: Recent studies consider the lower limit of 32.0 ng/mL to daren threshold for optimal health.Larry BARRERA. J Nutr. 2004;135(2):317-22.Performed at: [facility] [facility] [id number] Director: Caprice Woods MD :58 URINE VENICE CULTURE-DESMOND COL Comments: PATIENT NOT FASTINGClinical Information: SRC:UR ADD [id number] PERFORMED BY: [facility] [id number] COUNT ([id number]) Result 1 BETAGB (Normal) Comments: Beta hemolytic [...] Final report (Normal) Culture,Comprehensive :59 Urinalysis, Office ([id number]) UA - BILIRUBIN Negative (Normal) UA - [...] TIMED TSH 3.448 {uIU/mL} Comments: PERFORMED BY: [employer] [id number] 5:11 (Normal) Range: 0.450-4.500 TSH 4.26 {uIU/mL} [...] breast cancer Metastatic breast cancer : Reviewed Vertical Contour Band Saw Operator Letter Indication: Metastatic breast cancer Benign essential hypertension : Continue Current Prescription(s) Indication: Benign essential hypertension Hypercholesterolemia : Cholesterol mgmt Indication: Hypercholesterolemia Benign essential hypertension : HTN/CAD Red Flags Indication: Benign essential hypertension Metastatic breast cancer : Reviewed Lab Indication: Metastatic breast cancer Metastatic breast cancer : Reviewed Diagnostic Tests Indication: Metastatic breast cancer Metastatic breast cancer : Reviewed Vertical Contour Band Saw Operator Letter Indication: Metastatic breast cancer Non-smoker : [...] of right ankle, initial encounter : Reviewed Vertical Contour Band Saw Operator Letter Indication: Sprain of right ankle, initial encounter Metastatic breast cancer : Reviewed Vertical Contour Band Saw Operator Letter Indication: Metastatic breast cancer Benign essential [...] Osteoporosis Planned Observations TSH (THYROID STIMULATING HORMONE) ([id number])Indication: Hypothyroidism, unspecified On: 47-Zlt-384822:32 Request Comments: re check in 6 weeks TSH (THYROID STIMULATING HORMONE) ([id number])Indication: Hypothyroidism, unspecified On: 29-Lhe-744628:36 Request T4, FREE (THYROXINE) (81791)Indication: Hypothyroidism, unspecified On: :33 Request T3, FREE (TRIDOTHYRONINE) (13681)Indication: Hypothyroidism, unspecified On: 91-Lve-627986:33 Request CALCIFIDIOL (55759) VIT D 25Indication: Vitamin D deficiency, unspecified On: :47 Request TSH ([id number])Indication: Hypothyroidism, unspecified On: 96-Glb-205688:46 Request URINALYSIS, W/ MICRO ([id number])Indication: Benign essential hypertension On: :46 Request MICROALBUMIN: CREATININE RATIO ([id number]) AND ([id number])Indication: Benign essential hypertension On: 66-Cik-975552:46 Request METABOLIC PANEL, COMPREHENSIVE ([id number])Indication: Benign essential hypertension On: :46 Request LIPID PANEL ([id number])Indication: Hypercholesterolemia On: :46 Request CBC W/AUTO DIFF WBC ([id number])Indication: Benign essential hypertension On: 68-Nth-042804:46 Request URINE VENICE CULTURE-DESMOND COL COUNT ([id number])Indication: UTI symptoms On: 65-Wsa-513059:31 Request LIPID PANEL ([id number])Indication: Hypercholesterolemia On: :55 Request Comments: November 2016 MICROALBUMIN: CREATININE RATIO ([id number]) AND (58581)Indication: Benign essential hypertension On: :54 Request Comments: November 2016 URINALYSIS ([id number])Indication: Benign essential hypertension On: :54 Request Comments: November 2016 CBC, Platelets & Auto Diff ([id number])Indication: Benign essential hypertension On: :54 Request Comments: November 2016 Metabolic Panel, Comprehensive ([id number])Indication: Benign essential hypertension On: :54 Request Comments: November 2016 TSH ([id number])Indication: Hypothyroidism, unspecified On: 17-Aug-20169:53 Request Comments: due in November 2016 Vitamin D Hydroxy (58586)Indication: Vitamin D deficiency, unspecified On: 40-Rhk-268118: Request URINALYSIS, W/ MICRO ([id number])Indication: Benign essential hypertension On: 86-Vln-893266:00 Request MICROALBUMIN: CREATININE RATIO ([id number]) AND ([id number])Indication: Benign essential hypertension On: 72-Dmx-778222:00 Request METABOLIC PANEL, COMPREHENSIVE ([id number])Indication: Benign essential hypertension On: 82-Mwf-275383:00 Request LIPID PANEL ([id number])Indication: Hypercholesterolemia On: : Request CBC WITH MANUAL DIFF ([id number])Indication: Benign essential hypertension On: 85-Rtt-985433:00 Request TSH ([id number])Indication: Hypothyroidism, unspecified On: 98-Zwf-599109:00 Request Vitamin D Hydroxy ([id number])Indication: Osteoporosis On: :44 Request URINALYSIS, W/ MICRO ([id number])Indication: Benign essential hypertension On: 09-Xfe-809703:41 Request MICROALBUMIN: CREATININE RATIO ([id number]) AND ([id number])Indication: Benign essential hypertension On: 30-Aer-283047:41 Request METABOLIC PANEL, COMPREHENSIVE ([id number])Indication: Benign essential hypertension On: 56-Lzb-114740:41 Request LIPID PANEL ([id number])Indication: Benign essential hypertension On: 23-Djy-012165:41 Request CBC WITH MANUAL DIFF ([id number])Indication: Benign essential hypertension On: 68-Mmq-983128:41 Request TSH ([id number])Indication: Hypothyroidism, unspecified On: 04-Fdm-794695:40 Request TSH ([id number])Indication: Hypothyroidism, unspecified On: 67-Uss-931903:09 Request LIPID PANEL ([id number])Indication: Hypercholesterolemia On: :12 Request METABOLIC PANEL, COMPREHENSIVE ([id number])Indication: Hypercholesterolemia On: 5-Vyg-058718:12 Request TSH ([id number])Indication: Hypothyroidism, unspecified On: 1-Ute-259878:12 Request Planned Procedures Radiology - Ankle - LeftBy: Bradley, On: 24-May-2018 Intent Lilian ELECTROCARDIOGRAM, COMPLETE (ECG) On: 06-Dec-2017 Intent (07041)By: Tayla Espinal DO Comments: nsr no acute chg DO, Tayla Espinal DO, Tayla PNEUM VAC ADLT/IMUMNOSPR, SBC/INTRM On: 24-Mar-2017 Intent ([id number])By: Tayla Espinal DO Comments: lot:[id number]:IM left deltoid dose:0.5ml given by:hayley Us LPN DO, Tayla Velez DO ELECTROCARDIOGRAM, COMPLETE (ECG) On: 04-Jan-2017 Intent ([id number])By: Tayla Espinal DO Comments: nsr no acute cgh DO, Tayla Kylie DO, Tayla PHYSICAL THERAPY EVALUATION ([id number])By: On: 11-May-2015 Intent Elizabeth Villanueva CNP Radiology - Knee - RightBy: Kay MUÑOZ, On: 11-May-2015 Intent Elizabeth Watts MAMMOGRAM, SCREENING, BOTH BREAST On: 22-Aug-2014 Intent ([id number])By: Tayla Espinal DO Comments: send results to Tayla Matthews DO, DO, Kathleen DEXA SCAN AXIAL SKELETON ([id number])By: On: 22-Aug-2014 Intent Tayla Espinal DO, DO, Comments: send results to Tayla Hall DO Eprescribed prescriptions ([id number])By: On: 13-Sep-2012 Intent Lilian Richardson LPN Inhaler Demonstration ([id number])By: On: 04-Jul-2012 Intent Elizabeth Villanueva CNP Inhaler Demonstration ([id number])By: On: 04-Jul-2012 Intent Elizabeth Villanueva CNP Aerosol Treatment ([id number])By: Kay On: 04-Jul-2012 Intent Elizabeth MUÑOZ Eprescribed prescriptions ([id number])By: On: 27-May-2011 Intent Elizabeth Villanueva CNP EKG ([id number])By: KylieTayla braga DO On: 23-Sep-2010 Intent Kylie DO, Tayla Kylie DO, Comments: nsr no acute chg Tayla Eprescribed prescriptions ([id number])By: On: 23-Sep-2010 Intent Kylie DO, Tayla Kylie DO, Tayla Kylie DO, Tayla EKG ([id number])By: KylieTao braga DOeen On: 01-Jun-2009 Intent Kylie DO, Tayla Kylie DO, Comments: nsr no acute changes Tayla SPECIMEN HANDLING/TRANSPORT ([id number])By: On: 28-Nov-2008 Intent Andry ORTEGA, Keren Radiology - ChestBy: Justyna Head MD On: 20-May-2008 Intent M Comments: if not better 2 weeks Instructions [...] Advance Directives Name Dates Details Immunization Registry [place] - Effective on 03/24/2017. Effective: 24-Mar-2017 Expiration date unspecified Encounters Phone Encounter On: 28-May-2018 9:08 Encounter Diagnosis: Left ankle swelling End: 28-May-2018 9:33 [facility] Office Visit On: 24-May-2018 14:10 Encounter Reason: [...] End: 26-Oct-2006 9:52 Payers Kristel VARGAS/Stephon Barrera; kendrick guarantor
--- OUTSIDE RECORDS SUMMARY | 2018-07-15 17:19 | XMS RPT_ITS | Continuity of Care Document ---
:1940 Author Organization [facility] Address [facility] [address] [place] [address] Phone Care Team Providers Name Role Phone Tayla Espinal DO Unavailable Giorgio Hanley Unavailable Unavailable Lilian Huerta Unavailable Unavailable Long ORAL SURGERY PHYSICIAN, Carlita Leigh Unavailable Unavailable Shala Taylor Unavailable [...] 0 days Quantity: 180 {Tablet} Refills: 3 Ordered:30-May-2018 Bertha Espinal DO, DO, KathleenFearon DO, Kathleen Start : 30-May-2018 Active Omeprazole 20 MG Oral Capsule Delayed [...] : 30-Mar-2017 End : 06-Dec-2017 Inactive DRISDOL, 28353FOYE (Oral Capsule) 1 Capsule 2 X WEEK [...] Refills: 3 Ordered:24-Jul-2017 Bertha Espinal DO, DO, Tayla Stone DO Start : [...] as of 06-Dec-2017 Procedures Date Value Details 29-May-2018 Discharge Instruction Result: Comments: See Note; NOTES: [facility] Medical Records Department [address] [place] [address] Discharge Instruction 05/29/18 1318 MR#: [id number] Acct: [id number] Name: YADIMINI REESANNA Rep #: [id number] : 1940 77 From: Jose May MD PCP: Tayla Espinal DO Status: DEP ER ED Disposition - Plan for ED Patient: Chief Complaint: Lower Extremity Injury Instructio ns: ED LENA Referrals: Tayla Espinal DO [Primary Care Provider] - What to do if you have Problems For any increased pain, shortness of breath, bleeding, nausea or vomiting, chest pain, or any une xpected problems, contact your Primary Care Provider. Call [facility] ([phone]) or report to the closest Emergency Room. Call 911 if necessary. 05/29/18 1536 <Electronically signed by Jose May MD> Date Jose May MD Cosigner Signature (If Indicated): Date CC: Tayla Espinal DO 29-May-2018 Emergency Department Summary Result: Comments: See Note; NOTES: [facility] Medical Records Department [address] [place] [address] Emergency Department Summary 05/29/18 1314 MR#: [id number] Acct: [id number] Name: YADIGABINOANNA ALLEN Rep #: [id number] : 1940 77 From: Jose May MD PCP: Tayla Espinal DO Status: DEP ER - ER Visit Summary Date of Service: 05/29/18 Chief Complaint: Ankle pain History of Present Illness: The patient is a 77 F with left ankle pain for about 2 weeks after the patient fell. It was also worse after riding a bike. She had negative x-rays about 5 days ago. She was prescri bed on Aircast and she has been using a cane, but her symptoms persist. Mild swelling to the area but otherwise no associated symptoms. Never had this before. Physical Examination: Vital signs unremark able. Afebrile. Inspection appears unremarkable except for some minimal diffuse edema to the left ankle region. No deformity. Skin is intact. Normal color. No erythema. No warmth, induration, or fluctua nce noted. No laxity. Good range of motion. Diffusely tender to the area. Foot is unremarkable. Calf is soft and supple. Test Results: None performed Emergency Department Course and Treatment: Patient had negative x-rays greater than a week after her injury. I would expect to see a fracture at that point. I do not believe repeating x-rays would be useful at this point. The patient declined repeat x- rays. I advised her she may need an MRI to evaluate for stress fractures or ligamentous injury if her symptoms persist. She has been taking Tylenol. I advised her to continue taking Tylenol. She decline d opioids as she has a history of alcoholism. She cannot take anti-inflammatories per her oncologist. I suspect she had a sprain and has continued pain from use. There is nothing to suggest infection, gout, DVT, or other pathology. She was given an Aircast, Luis wrap, walker. Follow- up with primary care. Treatment Plan: Above Disposition: Discharge Impression:. Left ankle pain This note was gene rated with Bauzaar dictation software. It may contain incorrect words, spelling, and punctuation that were not noted in review of the chart prior to signing ED Disposition - Plan for ED Patient: Chief Complaint: Lower Extremity Injury Referrals: Tayla Espinal, DO [Primary Care Provider] - What to do if you have Problems For any increased pain, shortness of breath, bleeding, nausea or vomiting, chest pain, or any unexpected problems, contact your Primary Care Provider. Call [facility] ([phone]) or report to the closest Emergency Room. Call 911 if necessary. 05/29/18 1536 &#60 ;Electronically signed by Jose May MD> Date Jose May MD Cosigner Signature (If Indicated): Date CC: Tayla Espinal DO 24-May-2018 Ankle min 3 Views Result: Comments: See Note; NOTES: [facility] Imaging Services [address] [facility] [place] [place] [address] Ankle min 3 Views MR#: [id number] Acct: [id number] Name: ANNA BARRERA Rep #: [id number] : 1940 F 77 From: Silverio Dow MD PCP: Tayla Espinal DO Status: REG CLI Study: Ankle min 3 Views Date of Exam: 05/24/18 Exam# [id number] Ordering Dr: Lilian Huerta WILDLIFE CONSERVATION OFFICERFabián STUDY: X-RA Y - LEFT ANKLE REASON [...] , CC: BELÉN Huerta; Tayla Espinal DO Real Estate Leasing Agent: Signed 08-Nov-2017 Surgery Visit Report Result: Comments: See Note; NOTES: [facility] 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 Patient had a follow-up MRI of the brain a [facility] which demonstrated dramatic decrease in the [...] Visit Report Result: Comments: See Note; NOTES: [facility] [address] [place] [address]. [address] [place] [address] OFFICE VISIT Date of Service: 10/31/17 MR#: [id number] Acct: [id number] Name: ANNA PRICE Rep #: [id number] : 1940 Provider: Stacey Pizano PA-C Age/Sex: [...] was treated with Gamma Knife treatment at [facility]. Patient had a follow-up MRI of the brain at [facility] which demonstrated dramatic decrease in the [...] signed by Stacey Pizano PA-C> Date Stacey magana Signature: Date (if applicable) CC: 25-Oct-2017 OT D/C Summary Result: Comments: See Note; NOTES: [facility] [address] [place] [address]. 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 right lat. pinch 8# righ t [...] please fell free to call me at [phone]. Thank you for the referral of this patient. Sincerely, Stephanie Schilling, STALIN/MARY Leigh <Electronically signed by Stephanie GANT/MARY Leigh> 10/25/17 1053 CC: Stacey bowie PA-C; Tayla Espinal DO MK Signed 16-Oct-2017 OT General Evaluation Result: Comments: See Note; NOTES: [facility] [address] [place] [address] Fax REHABILITATION SERVICES INI TIAL EVALUATION MR#: [id number] Acct: [id number] Name: ANNA BARRERA Rep #: [id number] : 1940 77 From: Stephanie GANT/Lu, CHT [...] Left WNL - Strength Shoulder: R/L 4/5 Business Continuity Manager: right 45# left 45# Lateral Pinch: right [...] to be FAXED BACK to us at [phone] for Medicare purposes. Please let me know if there are questions or concerns regarding this plan of care. Vladimir peralta Signature: Date: <Electronically signed by Stephanie GANT/Lu, CHT> 10/16/17 0811 CC: Stacey Pizano PA-C; Tayla Espinal DO DOTTY Signed For Medicare only, by signing this I certify the plan of care. Physicians Signature Date 10-Oct-2017 PT D/C Summary (1) Result: Comments: See Note; NOTES: [facility] [address] [place] [address] Fax REHABILITATION SERVICES DISCHAR GE SUMMARY MR#: [id number] Acct: [id number] Name: ANNA BARRERA Rep #: [id number] : 1940 77 From: Amelie Rodriguez DPT Referring Dr.: Stacey Pizano PA-C Status: REG RCR Insurance: [employer] MEDICARE A ONLY HP - PT D/C [...] Goal Met - Plan Plan: Discharge to [facility] through [facility] - D/C Information If there are questions or concerns regarding this patient's physical therapy, please feel free to call me at [phone]. Thank you for the referral of this patient. Sincerely, Amelie Rodriguez <Electronically signed by Amelie Rodriguez DPT> 10/10/17 1028 CC: Stacey Pizano PA-C; Tayla Espinal DO ELR Signed 05-Oct-2017 OT General Evaluation Result: Comments: See Note; NOTES: [facility] [address] [facility] [place] [address] Fax REHABILITATION SERVICES INI TIAL EVALUATION MR#: [id number] Acct: [id number] Name: ANNA BARRERA Rep #: [id number] : 1940 77 From: Stephanie GANT/Lu, CHT Referring Dr.: Stacey Pizano PA-C Status: [facility] [employer] Date: MEDICARE A ONLY Patient's Visit Information ANNA BARRERA is a 77 year old F, referred to Occupational Therapy by Stacey Pizano, with a diagnosis of Masectomy. Josias e of Evaluation: 10/03/17 Occupational Therapist: Stephanie Schilling, STALIN/Lu, CHT - Subjective Subjective: Pt states she [...] Left WNL - Strength Shoulder: R/L 4/5 Business Continuity Manager: right 45# left 45# Lateral Pinch: right [...] to be FAXED BACK to us at [phone] for Medicare purposes. Please let me know if there are questions or concerns regarding this plan of care. Vladimir peralta Signature: Date: <Electronically signed by Stephanie REYNOSO, CHT> 10/05/17 0934 CC: Stacey Pizano PA-C; Tayla Espinal DO MK Signed For Medicare only, by signing this I certify the plan of care. Physicians Signature Date 08-Sep-2017 Emergency Department Summary Result: Comments: See Note; NOTES: [facility] Medical Records Department [address] [place] [address] Emergency Department Summary 09/08/17 1630 MR#: [id number] Acct: [id number] Name: ANNA BARRERA Rep #: [id number] : 1940 77 From: Jose May MD PCP: Tayla Espinal DO Status: REG ER ADDENDUM by Srinivas Gabriel on 09/08/17 at 1756 Patient was endorsed to me by the [facility] physician with instructions to check on CT [...] 2. Delirium This note was generated with Bauzaar dictation software. It may contain incorrect words, [...] Prima ry Care Provider. Call [facility] ([phone]) or report to the closest Emergency Room. Call 911 if necessary. 09/08/17 8897 <Electronically signed by Jose May MD> Date ___ Jose May MD Cosigner Signature (If Indicated): Date CC: Tayla Espinal 08-Sep-2017 Emergency Department Summary Result: Comments: See Note; NOTES: [facility] Medical Records Department [address] [place] [address] Emergency Department Summary 09/08/17 1630 MR#: [id number] Acct: [id number] Name: ANNA BARRERA Rep #: [id number] : 1940 77 From: Jose May MD [...] 2. Delirium This note was generated with Casagemation software. It may contain incorrect words, spelling, and punctuation that were not noted in review of the chart prior to signing ED Disposition - Plan for ED Patient: Chief Complaint: Nausea/Vomiting Referrals: Tayla Espinal, [Primary Care Provider] - What to do if you have Problems For any increased pain, shortness of breath, bleeding, nausea or vomiting, chest pain, or any unexpected prob lems, contact your Primary Care Provider. Call [facility] ([phone]) or report to the closest Emergency Room. Call 911 if necessary. 09/08/17 1712 <Electronically signed by Jose iglesias MD> Date Jose May MD Cosigner Signature (If Indicated): Date CC: Tayla Espinal DO 08-Sep-2017 Brain/Head without Contrast Result: Comments: See Note; NOTES: [facility] Imaging Services [address] [place] [address] Brain/Head without Contrast MR#: [id number] Acct: [id number] Name: ANNA BARRERA Rep #: [id number] : 1940 F 77 From: Nasrin Orta MD PCP: Tayla Espinal DO Status: [facility] ER Study: Brain/Head without Contrast Date of Exam: 09/08/17 Exam# [id number] Ordering Dr: Jose May STUDY: CT BRAIN [...] Orta MD at 17:11 EDT Tel Direct: [phone], Service support , CC: Jose May MD; Tayla Espinal DO Real Estate Leasing Agent: Signed 08-Sep-2017 Chest 1 View (Portable) Result: Comments: See Note; NOTES: [facility] Imaging Services [address] [place] [address] Chest 1 View (Portable) MR#: [id number] Acct: [id number] Name: ANNA BARRERA Rep #: [id number] : 1940 F 77 From: Nasrin Orta MD PCP: Tayla Espinal DO Status: REG ER Study: Chest 1 View (Portable) Date of Exam: 09/08/17 Exam# [id number] Ordering Dr: Jose May MD STUD Y: [...] Orta MD at 17:17 EDT Tel Direct: [phone], Service s upport , CC: Jose May MD; Tayla Espinal DO Real Estate Leasing Agent: Signed 08-Sep-2017 Abdomen/Pelvis W IV Cont ONLY Result: Comments: See Note; NOTES: [facility] Imaging Services [address] [place] [address] Abdomen/Pelvis W IV Cont ONLY MR#: [id number] Acct: [id number] Name: ANNA BARRERA Danika Magana ep #: [id number] : 1940 F 77 From: Terence Calero MD PCP: Tayla Espinal DO Status: REG ER Study: Abdomen/Pelvis W IV Cont ONLY Date of Exam: 09/08/17 Exam# [id number] Ordering Dr: Jose May MD STUDY: CT [...] CC: Jose May MD; Tayla Espinal DO Real Estate Leasing Agent: Signed 23-Aug-2017 Surgery Visit Report Result: Comments: See Note; NOTES: [facility] [address] [facility] [address] [place] [address] OFFICE VISIT Date of Service: 08/23/17 MR#: [id number] Acct: [id number] Name: ANNA BETANCOURT Rep #: [id number] : 1940 Provider: Stacey Garcia Age/Sex: 77/F Location: [facility] Status: Signed Intake Intake Visit Reasons: F/U MASTECTOMY/CEBUL Clinical Pharmacy Specialist Required: No Is patient in pain?: No [...] seatbelt use: always HPI HPI HPI: ANNA MELENBACKER, is a 77 F I am following [...] was treated with Gamma Knife treatment at [facility] . She will have a follow up [...] Contrast Result: Comments: See Note; NOTES: [facility] Imaging Services [address] [place] [address] Brain W/WO Contrast MR#: [id number] Acct: [id number] Name: ANNA BARRERA Rep #: [id number] : 1940 F 77 From: Glenn Taylor DO PCP: Tayla Espinal DO Status: REG CLI Study: Brain W/WO Contrast Date of Exam: 07/31/17 Exam# [id number] Ordering Dr: Ky Burkett DO STUDY: MR [...] lateral ventricle and with a 3 mm ieyk-ys-quwlo shift of the septum pellucidum (coronal T2 [...] surrounding vasogenic edema produ cing a mild wtkh-mh-myvrr midline shift and mild mass effect, most [...] CC: Tayla Espinal DO; Ky Burkett DO Real Estate Leasing Agent: Signed 24-Jul-2017 Inital Evaluation (1) - PT Result: Comments: See Note; NOTES: [facility] [address] [place] [address]. [address] [place] [address] Fax REHABILITATION SERVICES INITIAL EVALUATION MR#: [id number] Acct: [id number] Name: ANNA BARRERA Rep #: [id number] : 1940 77 From: Amelie Rodriguez DPNaomi [...] went to ER- admitted for [address] Paredes and Dr. Merritt. Sent her to [place]- which she lived in until Monday. Chemo 8x- CT scans- mets on the right lowe r lobe of the lung- Chest wall, fascia, muscle of the chest. Will have another scan at [facility] next monday. Does not have [...] to be FAXED BACK to us at [phone] for Medicare purposes. Please let me know if ther e are questions or concerns regarding this plan of care. Physician Signature: Date: <Electronically signed by Amelie oRdriguez DPT&am p;#62; 07/24/17 1027 CC: Stacey Pizano PA-C; Tayla Espinal DO ELR Signed For Medicare only, by signing this I certify the plan of care. _ Physicians Signature Date 15-Jul-2017 Discharge Instruction Result: Comments: See Note; NOTES: [facility] Medical Records Department [address] [place] [address] Discharge Instruction 07/15/17 1045 MR#: [id number] Acct: [id number] Name: ANNA PEREZ Rep #: [id number] : 1940 77 From: Tre Mcguire DO [...] problems, contact your Primary Care Provider. Call [facility] ([phone] ) or report to the closest Emergency Room. Call 911 if necessary. 07/15/17 1047 <Electronically signed by Tre Mcguire DO> Date Tre wahl DO Cosigner Signature (If Indicated): Date CC: Tayla Espinal DO 15-Jul-2017 Emergency Department Summary Result: Comments: See Note; NOTES: [facility] Medical Records Department [address] [facility] [place] [place] [address] Emergency Department Summary 07/15/17 1042 MR#: [id number] Acct: [id number] Name: ANNA BARRERA Rep #: [id number] : 1940 77 From: Tre Mcguire DO PCP: Tayla Espinal DO Status: REG ER - ER Visit Summary Date of Service: 07/15/17 Chief Complaint: [Diarrhea] History of Present Illness: The patient is a 77 F [presents to the emergency department with symptoms of diarrhea that started this morning around 7 AM. Patient states she has had 3-4 watery stools. Patient is from [facility]. Patient denies any abdominal pain or blood in her stool. Patient has not been on antibiotics recently. She denies recent travel. Patient was concerned because sh e had breast cancer with left mastectomy and had chemotherapy 3 months ago. Patient has a history of hypothyroidism and history of atrial fibrillation however she is not currently on a blood thinner. Colt dang denies any fevers. She was told at the [facility] that her temperature was 99.2 [...] Impression: [Diarrhea] This note was generated with Bauzaar dictation software. It may contain incorrect wo rds, spelling, and punctuation that were not noted in review of the chart prior to signing ED Disposition - Plan for ED Patient: Chief Complaint: Diarrhea Referrals: Tayla Espinal, [Primary Care Provider] - What to do if you have Problems For any increased pain, shortness of breath, bleeding, nausea or vomiting, chest pain, or any unexpected problems, contact your Primary Care Provider. [facility] ([phone]) or report to the closest Emergency Room. Call 911 if necessary. 07/15/17 1045 <Electronically signed by Tre Mcguire DO> Date Tre Mcguire DO Cosigner Signature (If Indicated): Date CC: Tayla Espinal DO 13-Jul-2017 Surgery Visit Report Result: Comments: See Note; NOTES: [facility] [address] [facility] [address] [place] [address] OFFICE VISIT Date of Service: 07/12/17 MR#: [id number] Acct: [id number] Name: ANNA BETANCOURT Rep #: [id number] : 1940 Provider: Stacey Garcia Age/Sex: 77/F Location: [facility] Status: Signed Intake Intake Visit Reasons: F/U MASTECTOMY/CEBUL Clinical Pharmacy Specialist Required: No Is patient in pain?: Yes [...] patient - May return to therapy at [facility] - Prescription for mastectomy bras was provided [...] Visit Report Result: Comments: See Note; NOTES: [facility] [address] [place] [address] OFFICE VISIT Date of Service: 06/27/17 MR#: [id number] Acct: [id number] Name: ANNA BETANCOURT Rep #: [id number] : 1940 Provider: Stacey Garcia Age/Sex: 77/F Location: [facility] Status: Signed Intake Intake Visit Reasons: F/U MASTECTOMY/CEBUL Chief Complaint: left mastectomy RC Clinical Pharmacy Specialist Required: No Is patient in pain?: No [...] Signature: Date (if applicable) CC: Ky Burkett 21-Jun-2017 12 Lead Electrocardiogram Result: Comments: See Note; NOTES: [facility] Cardiovascular Services [address] [place] [address] 12 Lead EKG 06/17/17 1008 MR#: [id number] Acct: [id number] Name: ANNA BARRERA Rep #: [id number] : 1940 76 From: Delvin Coleman MD Attending Dr: Josh Merritt MD Status: PRE [facility] Ordering Dr: Josh Merritt MD Date: 06/17/17 Location: [facility] Sex: F C Admitted: Test Reason : [...] Confirmed by DELVIN COLEMAN MD ([id number]), editorial clerk DANIELLE STAHL ([id number]) on 06/21/2017 3:06:43 PM Referred By: TOBY Confirmed By:DELVIN COLEMAN MD 06/21/17 1506 Date Delvin Coleman MD CC: Tayla Espinal Signed 01-Jun-2017 Surgery Visit Report Result: Comments: See Note; NOTES: [facility] [address] [place] [address] OFFICE VISIT Date of Service: 05/30/17 MR#: [id number] Acct: [id number] Name: ANNA BETANCOURT Rep #: [id number] : 1940 Provider: Stacey Garcia Age/Sex: 76/F Location: [facility] Status: Signed Intake Vital Signs05/30/17 Height 5 ft 5 in 05/30/17 Weight: 145 lb Int grayson Visit Reasons: Update H AND P.el Clinical Pharmacy Specialist Required: No Is patient in pain?: No [...] 76-year-old female. She was referred by her [facility] Dr. Ky Burkett for surgical treatment of her left breast cancer. She was hospitalized at the [facility] January 10, 2017 luis watts of uncontrolled [...] Summary Result: Comments: See Note; NOTES: [facility] Medical Records Department [address] [place] [address] Emergency Department Summary 03/15/172011 MR#: [id number] Acct: [id number] Name: ANNA BARRERA Rep #: [id number] : 1940 76 From: Munir Kennedy MD PCP: Tayla Espinal DO Status: DEP ER - ER Visit Summary Date of Service: 03/15/17 Chief Complaint: [] Right ankle pain and passed out. History of Present Illness: The patient is a 76 F [] here with family after databases computer consultant arrival. Patient states that she stepped off [...] your Primary Care Provider. Call [facility] ors Registry ([phone]) or report to the closest Emergency Room. Call 911 if necessary. 03/30/17 0957 <Electronically signed by Munir Kennedy MD> Date Munir Kennedy MD Cosigner Signature (If Indicated): Date CC: Tayla Espinal DO 17-Mar-2017 12 Lead Electrocardiogram Result: Comments: See Note; NOTES: [facility] Cardiovascular Services [address] [place] [address] 12 Lead EKG 03/15/17 1407 MR#: [id number] Acct: [id number] Name: ANNA BARRERA Rep #: [id number] : 1940 76 From: Delvin Coleman MD [...] left ventricular hypertrophy Abnormal ECG Confirmed by FANI ESTEBAN, DELVIN ([id number]), editorial clerk DANIELLE STAHL ([id number]) on 03/17/2017 2:36:13 PM Referred By: DOUGIE Confirmed By:DELVIN COLEMAN MD 03/17/17 1436 Date Delvin Coleman MD CC: Tayla Espinal DO Date Dictated: 03/15/171406 Date Transcribed: 03/15/171406 Real Estate Leasing Agent: Signed 15-Mar-2017 Emergency Department Summary Result: Comments: See Note; NOTES: [facility] Medical Records Department [address] [facility] [place] [address] Emergency Department Summary 03/15/17 1528 MR#: [id number] Acct: [id number] Name: ANNA BARRERA Rep #: [id number] : 1940 76 From: Munir Kennedy MD [...] your Primary Care Provider. Call [facility] ([phone]) or report to the closest Emergency Room. Call 911 if necessary. 03/15/17 1530 <Electronically signed by Munir Kennedy MD> Date Munir Kenendy MD Cosigner Signature (If Indicated): Date CC: Tayla Espinal DO 15-Mar-2017 Ankle min 3 Views Result: Comments: See Note; NOTES: [facility] Imaging Services [address] [place] [address] Ankle min 3 Views MR#: [id number] Acct: [id number] Name: ANNA BARRERA Rep #: [id number] : 1940 F 76 From: Asa Verma MD PCP: Tayla Espinal DO Status: REG ER Study: Ankle min 3 Views Date of Exam: 03/15/17 Exam# [id number] Ordering Dr: Munir Kennedy MD STUDY: X-RAY [...] Asa Verma MD at 14:22 EDT Tel [phone], Service support , CC: Munir Kennedy MD; Tayla Espinal DO Real Estate Leasing Agent: Signed 06-Feb-2017 Emergency Department Summary Result: Comments: See Note; NOTES: [facility] Medical Records Department [address] [place] [address] Emergency Department Summary 02/06/17 1134 MR#: [id number] Acct: [id number] Name: ANNA BARRERA Rep #: [id number] : 1940 76 From: Srinivas Gabriel MD [...] by having bleeding on dressi ng changes. intermediate staff was concerned for the possibility of [...] dressing changes by the staff at her skilled nursing and requested referral to wound care. I [...] Additional Instructions: Fol low-up with wound care [phone] What to do if you have Problems For any increased pain, shortness of breath, bleeding, nausea or vomiting, chest pain, or any unexpected problems, contact your [facility] Care Provider. Call [facility] ([phone]) or report to the closest Emergency Room. Call 911 if necessary. 02/06/17 1547 <Electronically signed by Srinivas Gabriel MD> Da te Srinivas Gabriel MD Cosigner Signature (If Indicated): Date CC: Tayla Espinal DO 10-Jan-2017 Chest WITH Contrast Result: Comments: See Note; NOTES: [facility] Imaging Services [address] [place] [address] Verdana 4d Chest WITH Contrast MR#: [id number] Acct: [id number] Name: ANNA BARRERA Rep #: [id number] : 1940 F 76 From: Asa Verma MD PCP: Tayla Espinal DO Status: REG ER Study: Chest WITH Contrast Date of Exam: 01/10/17 Exam# [id number] Ordering Dr: Nasrin Lizama STUDY: CT CHEST [...] Asa Verma MD at 10:40 EDT Tel [phone], Service support , CC: Nasrin Lizama MD; Tayla Espinal DO Real Estate Leasing Agent: Signed 03-Jul-2015 PT D/C Summary Result: Comments: See Note; NOTES: [facility] [address] [place] [address]. [address] [place] [address] Fax REHABILITATION RVICES DISCHARGE SUMMARY MR#: [id number] Acct: [id number] Name: ANNA BARRERA Rep #: [id number] : 1940 75 From: Amelie Rodriguez Referring [...] She is planning on continuing with a representative personal service and dileep robledo. - Objective Objective/Function: Patient [...] Goal Met - Plan Plan: Discharge to home ex ercise program - D/C Information Discharge Comments: Discharge to home exercise program If there are questions or concerns regarding this patient's physical therapy, please feel free to call me a t [phone]. Thank you for the referral of this patient. Sincerely, Amelie Rodriguez <Electronically signed by Amelie Rodriguez > 07/03/15 1031 CC: Elizabeth Espinal DO ELR Signed 10-Jun-2015 Re-Evaluation - PT Result: Comments: See Note; NOTES: [facility] [address] [place] [address]. [address] [place], [place] [address] Fax REEVALUATION / [facility] MR#: [id number] Acct: [id number] Name: ANNA BARRERA Rep #: [id number] : 1940 74 From: Amelie Rodriguez Referring DrAlondra: Elizabeth sheltonus: REG RCR Insurance: KRISTEL Villanueva, It has been my pleasure to treat ANNA BARRERA over the last 10 visits for Right Knee Pain. Please see the progress note below for an upda te on the physical therapy plan of care! Subjective: Patient reports that she is good- very little knee pain today /. Nervous about 5 days off with the [...] do not hesitate to contact me at [phone] by phone or if you have questions or concerns regarding this new plan of care! Sincerely, Amelie Rodriguez <Electronically signed by Amelie Rodriguez > 06/10/15 1058 CC: Elizabeth Espinal DO ELR Signed For Medicare only, by signing this I certify the plan of care. Physicians Signature Date 19-May-2015 Inital Evaluation - PT Result: Comments: See Note; NOTES: [facility] [address] [place] [address]. [address] [place] [address] Fax REHABILITATION ELIZA INITIAL EVALUATION MR#: [id number] Acct: [id number] Name: ANNA BARRERA Rep #: [id number] : 1940 74 From: Amelie Rodriguez Referring [...] in the AM and meets with a nurse instructor 1x a week. - Objective Posture: [...] to be FAXED BACK to us at [phone] for Medicare purposes. Please let me know if there are questions or conc erns regarding this plan of care. Physician Signature: Date: <Electronically signed by Amelie Rodriguez > 05/19/15 1950 CC: Elizabeth Espinal DO RIYAR Signed For Medicare only, by signing this I certify the plan of care. Physicians Signature Date 11-May-2015 Knee 4 or More Views Result: Comments: See Note; NOTES: [facility] Imaging Services [address] [place] [address] Verdana 4d Knee 4 or More Views MR#: [id number] Acct: [id number] Name: ANNA PRICE Rep #: [id number] : 1940 F 74 From: fAshin Gant DO PCP: Tayla Espinal DO Status: REG CLI Study: Knee 4 or More Views Date of Exam: 05/11/15 Exam# [id number] Ordering Dr: Elizabeth Richards STUDY: X-RAY - [...] Afshin Gant DO at 9:20 EST Tel [phone], Service support [phone], RAD/Knee 4 or More Views IMPRESSION: Degenerative arthrosis. Electro nically Signed: Afshin Gant DO at 9:20 EST Tel [phone], Service support [phone], CC: Elizabeth Villanueva; Tayla Espinal DO Real Estate Leasing Agent: Signed 30-Oct-2014 Bilat Scrn Digital AND CAD Result: Comments: See Note; NOTES: [facility] Imaging Services [address] [place] [address] Breast Imaging Report MR#: [id number] Acct: [id number] Name: ANNA BARRERA p #: [id number] : 1940 F 74 From: Afshin Gant DO PCP: Tayla Espinal DO Status: REG CLI Study: Bilat Scrn Digital AND CAD Date of Exam: 10/30/14 Exam# [id number] Ordering Dr: Douglas Espinal DO MAMMOGRAPHY - [...] Afshin Gant DO at 14:34 EDT Tel [phone], Service support [phone], CC: Tayla Espinal DO Real Estate Leasing Agent: Signed 30-Oct-2014 Dexa Bone Density Study (HP) Result: Comments: See Note; NOTES: [facility] Imaging Services [address] [place] [address] Bone Density Report MR#: [id number] Acct: [id number] Name: ANNA BARRERA Rep #: [id number] : 1940 F 74 From: Asa Verma MD PCP: Tayla Espinal DO Status: REG CLI Study: Dexa Bone Density Study (HP) Date of Exam: 10/30/14 Exam# [id number] Ordering Dr: Tayla Espinal DO STUDY: DUAL [...] Asa Verma MD at 8:23 EDT Tel [phone], Service support [phone], CC: Tayla Espinal DO Real Estate Leasing Agent: Signed 12-Nov-2013 OT Discharge Summary Result: Comments: See Note; NOTES: [facility] Occupational Therapy [address] [place] [address] Fax REHABILITATION SERVIC ES DISCHARGE SUMMARY MR#: [id number] Acct: [id number] Name: ANNA BARRERA Rep #: [id number] : 1940 73 From: Stephanie Schilling Referring [...] discharged. Stephanie Schilling, OTR/L T: NTS JOB: [id number] <Electronically signed by Stephanie Schilling > 11/12/13 [...] kg/m2 Body Surface Area Calculated 1.71 m2 35-Eym-582858:31 Pulse 75 /min Comments: Pattern: Regular Respiration [...] 0.00 cm Results Date Description Value Details 18-Gqw-300997:26 TSH (THYROID STIMULATING Comments: PATIENT NOT FASTINGPERFORMED BY: JOSE DAVID [facility] Xijsjo8052 [facility] [place] [id number] HORMONE) (89592) TSH 0.076 {uIU/mL} (Abnormal) Range: 0.450-4.500 75-Vjy-908627:31 T3, FREE (TRIDOTHYRONINE) (76977) Comments: PATIENT NOT FASTINGPERFORMED BY: [facility] Xwdjwk0519 [facility] [place] [id number] Triiodothyronine (T3), Free 3.1 pg/mL (Normal) Range: 2.0-4.4 86-Ybe-274053:31 T4, FREE (THYROXINE) (48596) Comments: PATIENT NOT FASTINGPERFORMED BY: [facility] Oruddk2158 [facility] [id number] T4,Free(Direct) 2.14 ng/dL (Abnormal) Range: 0.82-1.77 40-Vvh-498614:31 TSH (THYROID STIMULATING Comments: PATIENT NOT FASTINGPERFORMED BY: [facility]6370 [facility] [id number] HORMONE) (17618) TSH 0.058 {uIU/mL} (Abnormal) Range: 0.450-4.500 43-Ror-961820:52 CALCIFEDIOL (34200) Comments: PATIENT NOT FASTINGPERFORMED BY: [facility] Hechbd1834 [facility] [place] [id number] Vitamin D, 25-Hydroxy 20.8 ng/mL (Abnormal) Range: 30.0-100.0 Comments: Vitamin D deficiency has been defined by the [place] ofMedicine and an Endocrine Society practice guideline as alevel of serum 25-OH vitamin D less than 20 ng/mL (1,2).The Endocrine Society went on to further define vitamin Dinsufficiency as a level between 21 and 29 ng/mL (2).1. IOM ([place] of Medicine). 2010. Dietary reference intakes for calcium and D. [place]: The National Academies Press.2. Ham MF, Alvino ALCALA, Ileana AYALA, et al. Evaluation, treatment, and prevention of vitamin D deficiency: an Endocrine Society clinical practice guideline. JCEM. 2010; 96(7):1911-30. 06-Chv-190383:52 MICROALBUMIN: CREATININE RATIO Comments: PATIENT NOT FASTINGPERFORMED BY: Enikos Fbvcqe6818 [facility] HospitalappssavvyFormerly [facility], [facility] [id number] (10817) AND (80448) Alb/Creat Ratio <22.6 {mg/g_creat} (Normal) Range: 0.0-30.0 Albumin, Urine <3.0 ug/mL (Normal) Creatinine, Urine 13.3 mg/dL (Normal) :52 METABOLIC PANEL, COMPREHENSIVE Comments: PATIENT NOT FASTINGPERFORMED BY: [facility] Ytpxte7632 [facility], [facility] [id number] (30678) ALT (SGPT) 12 [iU]/L (Normal) Range: 0-32 [...] 8-27 Glucose 86 mg/dL (Normal) Range: 65-99 :52 CBC W/AUTO DIFF WBC (03268) Comments: PATIENT NOT FASTINGPERFORMED BY: [employer] [facility] [id number] Immature Grans (Abs) 0.0 {x10E3/uL} (Normal) Range: [...] 4.9 {x10E3/uL} (Normal) Range: 3.4-10.8 :52 TSH (27672) Comments: PATIENT NOT FASTINGPERFORMED BY: KitchensurfingDublin [place] [id number] TSH 0.032 {uIU/mL} (Abnormal) Range: 0.450-4.500 :52 T4, FREE (THYROXINE) (13758) Comments: PATIENT NOT FASTINGPERFORMED BY: [facility]6370 [facility] [id number] T4,Free(Direct) 2.26 ng/dL (Abnormal) Range: 0.82-1.77 :52 T3, FREE (TRIDOTHYRONINE) (65780) Comments: PATIENT NOT FASTINGPERFORMED BY: [facility]6370 [facility] [id number] Triiodothyronine,Free,Serum 3.6 pg/mL (Normal) Range: 2.0-4.4 02-Fdp-068372:50 Urinalysis, Complete Comments: Order Date: 09/08/17How was Urine Obtained? TEST ENGINEER NUCLEAR EQUIPMENT TO [facility] [address] [place], [place], [id number] MUCUS, URINE 0 SEEN {/hpf} (Normal) BACTERIA [...] (Normal) CLARITY Clear (Normal) COLOR Straw (Normal) 01-Ynd-886804:20 CBC W/Diff, Automated Comments: [facility] [address] [place], [address] PATH REV May foll (Normal) [...] 4.2-5.4 WBC 2.9 K/mm3 (Abnormal) Range: 4.4-11.0 59-Udu-019312:20 Comprehensive Metabolic Profil Comments: 'TROP' Serial specimen #1, #2, #3, or #4: [facility] [address] [place], [address] GAP 5 (Normal) Range: 5-15 CO2 31.0 mmol/L (Normal) Range: 21.0-32.0 CL 102 mmol/L (Normal) Range: 98-107 K 3.6 mmol/L (Normal) Range: 3.5-5.1 NA 138 mmol/L (Normal) Range: 136-145 T BILI 0.40 mg/dL (Normal) Range: 0.20-1.00 ALT 88 U/L (Abnormal) Range: 13-56 Comments: Please note revised ALT reference range nsyfaqcln92/28/2018. ALK P 95 U/L (Normal) Range: 45-117 [...] A.D.A. criteria.Please note revised GLUCOSE reference range ljdecmusu59/02/2018. 36-Wxz-972715:20 Lipase Comments: 'TROP' Serial specimen #1, #2, #3, or #4: [address] [place] [address] [place], [address] LIPASE 389 U/L (Normal) Range: 73-393 91-Hrb-579289:20 Troponin-I Comments: 'TROP' Serial specimen #1, #2, #3, or #4: [address] [place] [address] [place], [address] TROPONIN-I < 0.02 ng/mL (Normal) Comments: TROPONIN-I EXPECTED VALUES <0.05 NEGATIVE 0.06 - 0.59 AT RISK OF AL > OR = 0.60 SUGGEST AL 31-Nty-08535:50 Basic Metabolic Profile (BMP) Comments: [facility] [address] [place], [place], [address] GAP 9 (Normal) Range: 5-15 CO2 24.0 [...] 7-18 GLU 100 mg/dL (Normal) Range: 70-110 :50 CBC W/Diff, Automated Comments: [facility] [address] [place], [place], [address] SMEAR COMMENT SCANNED (Normal) Absolute Lymph 0.40 [...] -Jun-2017 BREAST MASTECTOMY (CHOOSE See Note Comments: [facility] [address] [place], [address] 7:15 SIDE (Normal) Comments: Patient: ANNA BARRERA : 1940 (77/F) Acct Num: [id number] Phys: Josh Merritt MD Unit Num: [id number] Loc: [facility] Specimen: [id number] Received: 06/22/17936 Spec Type: B [...] node measures 3.5 cm in greatest dimension. Retail Interior Designer sections are subm itted as follows: 1 [...] superior, inferior and posteri or margin, 15-17 aircraft sales representative sections from the other areas, 18 multiple lymph nodes, 19-21 each cassette containing one bisected lymph node, 22 two lymph nodes, 23 AND 24 one lymph node, 2 5 AND 26 one lymph node. / SJ:rg 06/23/17 TC:0 CPT: 97621 HEADER OPERATION: Left modified radical mastectomy PRE-OP [...] studies - previously performed on section of juano r (N63-5360 / OT90-296). 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 PATHOLOGIC STAGE: p T1a(y) pN0 Mx The above summary is in compliance with College of [place] Pathology (CAP) Cancer Protocols Checklist and [place] Joint Committee on Cancer (AJCC), Staging Manual, 7th Ed. SJ:blanco 06/26/17 Signed Young Malcolm 06/26/17 <signature on file> 22-Jun-2017 IMMUNOHISTOCHEMISTRY See Note Comments: [facility] [address] [place], [address] 0:00 (Normal) Comments: Patient: ANNA BARRERA : 1940 (77/F) Acct Num: [id number] Phys: Josh Merritt MD Unit Num: [id number] Loc: [facility] Specimen: [id number] Received: 06/26/17 - 1201 Spec Type: IMMUNO TISSUES TISSUES: Left breast, NOS SPECIMEN INFORMATION: Tissue Source: Left breast and axillary contents Clinical Info: Left breast cancer Specimen Number: [id number] #6 AND 24 CPT code: 18693, 86570 x3 METHODOLOGY: Deparaffinized sections of prefer/formalin-fixed tissue [...] developed and their performance characteristics determined by [facility]. They may not have been [...] the above diagnosis. IDC:AM PHYSICIAN AND INSTITUTION [facility] [address] [place], [place] [address] Signed Young Malcolm 06/27/17 <signature on file> :57 Basic Metabolic Profile (BMP) Comments: [facility] [address] [facility] [place], [address] GAP 6 (Normal) Range: 5-15 CO2 31.0 [...] :57 CBC-Complete Blood Cnt No Diff Comments: [facility] R[address]ferozty[address] [facility] [place], [place], [address] MPV 9.5 fL (Normal) Range: 6.2-12.0 PLT [...] 4.2-5.4 WBC 3.9 K/mm3 (Abnormal) Range: 4.4-11.0 45-Cdp-37254:57 Thyroid Stim Hormone (TSH) Comments: [facility] Xsm[address]bsz9152 [facility]. [place], [place], [address] TSH 0.26 {uIU/mL} (Abnormal) Range: 0.358-3.74 43-Zzo-916548:08 Basic Metabolic Profile (BMP) Comments: [facility] Jciuqioral6183 [facility]. [place], [place], [address] GAP 7 (Normal) Range: 5-15 CO2 27.0 [...] 7-18 GLU 108 mg/dL (Normal) Range: 70-110 07-Ykb-904641:30 Culture, Sputum Comments: [facility] [address] [place], [place], [address] CUSP See Note (Normal) Comments: Gram StainAcceptable Specimen? Yes (<25 Epithelial cells per/lpf) Gram Stain 1+ White Blood Cells No Epithelial cells 2+ Gram positive cocci in clusters Resp. CultureMixed normal respirat ory anita. No Haemophilus, Streptococcus pneumoniae, beta-hemolytic Streptococcus or Staphylococcus aureus isolated. ORGANISM 1: YeastAmount Growth Rare 56-Jbq-715742:00 Culture, Sputum Comments: [facility] [address] [place], [place], [address] CUSP See Note Comments: Gram StainAcceptable Specimen? [...] <=20 S(NF) indicates non-formulary veena g at [facility]. Approval by Infectious Disease Specialist required before non-formulary drugs may be ordered and/or dispensed. BREAST BIOPSY (CHOOSE SITE) See Note Comments: [facility] [address] [place], [place], [address] 716:06 (Normal) Comments: Patient: ANNA BARRERA : 1940 (76/F) Acct Num: [id number] Phys: Ceferino Morales MD Unit Num: [id number] Loc: [facility] Specimen: [id number] Received: 01/18/171023 Spe c Type: BREAST BX TISSUES TISSUES: COMMENT Immunohistochemistry ([id number]) supports the above diagnosis. 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 Case is reviewed in consultation with Dr. Ibarra of [facility]. The complete consultative report is viewable in [...] intwo cassettes. / AM: 01/18/17 TC:0 CPT: 09519 HEADER OPERATION: Left breast core biopsy PRE-OP DIAGNOSIS: Breast cancer TISSUE SUBMITTED: Left breast core biopsy ISCHEMIC TIME: 18 minutes FIXATION TIME: 17 hours MICROSCOPIC DESCRIPTION Sli diana are reviewed. MICROSCOPIC DIAGNOSIS Left breast, core biopsy: Poorly differentiated ductal carcinoma. AM: 01/19/17 Signed Deo Kayla 01/30/17 <signature on file> IMMUNOHISTOCHEMISTRY See Note Comments: [facility] [address] [place], [place], [address] 70:00 (Normal) Comments: Patient: ANNA BARRERA : 1940 (76/F) Acct Num: [id number] Phys: Ceferino Morales MD Unit Num: [id number] Loc: [facility] Specimen: [id number] Received: 01/19/171030 Spe c Type: IMMUNO TISSUES TISSUES: SPECIMEN INFORMATION: Tissue Source: Left breast core biopsy Clinical Info: Breast cancer Specimen Number: [id number] #1 CPT code: 05452, 14632 x22, 59210 x3 METHODOLOGY: Deparaffinized sections of prefer/formalin- fixed [...] ER (clone 6F11) 38%, weak to moderate CO (clone 16/1E2) 0% Her-2Neu (clone CB11) 0 The prognostic test for HER2 is performed on formalin-fixed paraffin embedded tissue. A 3+ (positive) staining pattern is defined as intense, homogeneous, complete, circumferential membran ous staining in >10% of contiguous tumor cells. A similar weak (2+) staining pattern is interpreted as equivocal. JENNA follow-up testing is recommended for all equivocal cases. Positivity/negativity for ER/CO is reported if > or < 1% of the tumor cells are immuno- reactive, respectively. The ASCO/CAP criteria is used for scoring. Reference: Journal of Clinical Oncology, 2013; 31:3949-0587 AN True 2009; 16:7447-2581. Duration of fixation: 17 Hrs; Sample Adequate: Yes. These assays have not been validated on decalcified tissues. Results should beinterpreted with caution given the likelihoo d of false negativity on decalcifiedspecimens. These tests were developed and their performance characteristics determined by [facility]. They may not have been [...] reviewed in consultation with Dr. Ibarra of [facility]. Complete consultative report is viewable in patient's EMR Case has been reviewed in consultation with Dr. Malcolm who concurs with the abovediagnosis. IDC:[facility] PHYSICIAN AND INSTITUTION [address] [address] Signed Deo Kayla 01/30/17 <signature on file> 55-Fkf-45020:04 Basic Metabolic Profile (BMP) Comments: [facility] [address] [place] [address], [id number] GAP 6 (Normal) Range: 5-15 CO2 30.0 [...] A.D.A. criteria. :04 CBC W/Diff, Automated Comments: [facility] [address] [place], [place], [address] Absolute Lymph 1.46 {X10_3/ul} (Normal) Range: 0.83-4.51 [...] Range: 4.4-11.0 :04 Partial Thromboplast Time Comments: [facility] [address] [place], [place], [address] PTT 26.4 s (Normal) Range: 24.1-36.2 :04 Prothrombin Time w/INR Comments: [facility] [address] [place], [address] INR 1.0 (Normal) PROTIME 12.7 s (Normal) Range: 11.7-14.9 :05 CBC W/Diff, Automated Comments: [facility] [address] [place], [address] Absolute Lymph 2.04 {X10_3/ul} (Normal) [...] Range: 4.4-11.0 :05 Comprehensive Metabolic Profil Comments: [facility] [address] [place], [place], [address] GAP 7 (Normal) Range: 5-15 CO2 30.0 [...] 7-18 GLU 94 mg/dL (Normal) Range: 70-110 11-Hvo-63526:05 Lipid Profile Comments: [facility] [address] [place], [place], [address] VLDL 10 mg/dL (Normal) Range: 5-40 LDL [...] High Risk :05 Microalb:Creat Ratio,Random UR Comments: [facility] [address] [facility] [address] [place], [place], [address] MALB:CREAT 8.6 {mg/g_CRE} (Normal) MICROALBUMIN,UR 5.8 mg/L (Normal) UR CREAT 67.00 mg/dL (Normal) :05 Thyroid Stim Hormone (TSH) Comments: [facility] K[address] [facility] [place], [address] TSH 0.65 {uIU/mL} (Normal) Range: 0.358-3.74 35-Dsg-91172:05 Urinalysis, Routine (Dipstick) Comments: How was Urine Obtained? CLEAN [facility] Xhptoktiph1902 [facility] [place], [address] LEUK ESTERASE 100 /ul (Abnormal) OCCULT BLOOD-UR 25 /ul (Abnormal) NITRITE UR Negative (Normal) UROBILI Normal mg/dL (Normal) PROT DIPSTX Negative mg/dL (Normal) pH UR 6.5 (Normal) Range: 5.0 - 8.0 SP.GR. DIPSTX 1.010 (Normal) Range: 1.002-1.030 KETONE UR Negative mg/dL (Normal) BILIRUBIN URINE Negative mg/dL (Normal) GLUCOSE, UR Normal mg/dL (Normal) CLARITY Clear (Normal) COLOR Yellow (Normal) 42-Gxp-744406:08 TSH (36401) Comments: PATIENT NOT FASTINGPERFORMED BY: [facility] Gpcnhu9767 [facility] [id number] Information: [id number] TSH 1.080 {uIU/mL} (Normal) Range: 0.450-4.500 :06 CBC W/Diff, Automated Comments: Test performed at:[facility] V[address]vexanrh[address] [facility] [place] [address] Absolute Lymph 2.22 {X10_3/ul} (Normal) Range: 0.83-4.51 [...] :06 Comprehensive Metabolic Profil Comments: Test performed at:[facility] [address] [place] [address] GAP 4 (Abnormal) Range: 5-15 CO2 31.0 [...] 70-110 :06 Lipid Profile Comments: Test performed at:[facility] [address] [place] [address] VLDL 11 mg/dL (Normal) Range: [...] :06 Microalb:Creat Ratio,Random UR Comments: Test performed at:[facility] [address] [place] [address] MALB:CREAT 21.7 {mg/g_CRE} (Normal) MICROALBUMIN,UR 7.8 mg/L (Normal) UR CREAT 35.8 mg/dL (Normal) :06 Thyroid Stim Hormone (TSH) Comments: Test performed at:[facility] [address] [place] [address] TSH 0.46 {uIU/mL} (Normal) Range: 0.358-3.74 :06 Urinalysis, Routine (Dipstick) Comments: How was Urine Obtained? CLEAN CATCHTest performed at:[facility] [address] [place] [address] ; will review at 11/26 appt [...] :06 Vitamin D,25 Hydroxy Comments: Test performed at:[facility] [address] [place] [address] Vitamin D 25-OH 23.4 ng/mL (Normal) Comments: Vitamin D 25(OH) Status Range Deficiency <20 ng/mL (50nmol/L) Insuffciency 20 - 30 ng/mL (50 - 75 nmol/L) Sufficiency 30 - 100 ng/mL (75 - 250 nmol/L) Toxicity >100 ng/mL (>250 nmol/L) :09 TSH (23807) Comments: PATIENT NOT FASTINGPERFORMED BY: [facility] Zgblel2088 [facility] [id number] Information: [id number], [id number] TSH 1.860 {uIU/mL} (Normal) Range: 0.450-4.500 :27 TSH (62940) Comments: PATIENT NOT FASTINGPERFORMED BY: [facility] [id number] [place] [place] [id number] Information: [id number] TSH 1.760 {uIU/mL} (Normal) Range: 0.450-4.500 :05 [...] (Normal) UCLAR CLEAR (Normal) UCOL YELLOW (Normal) 23-Sep-20116:05 VITD 24.0 ng/mL (Abnormal) Range: 30.0-100.0 Comments: Vitamin D deficiency has been defined by the [place] [facility] and an Endocrine Society practice guideline as alevel of serum 25-OH vitamin D less than 20 ng/mL (1,2).The Endocrine Society went on to further define vitamin Dinsufficiency as a level between 21 and 29 ng/mL (2).1. IOM ([place] of Medicine). 2010. Dietary reference intakes for calcium and D. [place]: The National Academies Press.2. Ham MF, Alvino ALCALA, Ileana AYALA, et al. Evaluation, treatment, and prevention of vitamin D deficiency: an Endocrine Society clinical practice guideline. JCEM. 2010; 96(7): 1911-30.Performed at: [facility] [address] [id number] Director: Stephanie Young MD, Phone: [phone] 25-Feb-20119:43 TSH ([id number]) Comments: PATIENT NOT FASTINGPERFORMED BY: [address] [id number] Information: [id number] TSH 2.940 {uIU/mL} (Normal) Range: 0.450-4.500 25-Feb-20119:43 CALCIFIDIOL (17927) VIT D 25 Comments: PATIENT NOT FASTINGPERFORMED BY: [address] [id number] Vitamin D, 25-Hydroxy 24.5 ng/mL (Abnormal) Range: 32.0-100.0 Comments: Recent studies consider the lower limit of 32.0 ng/mL to be athreshold for optimal health.Larry BARRERA. J Nutr. 2004;135(2):317-22. 52-Idr-734583:08 PARATHORMONE (80439) Comments: PATIENT NOT FASTINGPERFORMED BY: [place] [id number] [facility] [id number] Information: [id number] PTH, Intact 47 pg/mL (Normal) Range: 15-65 :06 Microscopic Examination Comments: PATIENT NOT FASTINGPERFORMED BY: [facility]6[address] [facility] [id number] Bacteria Few (Normal) Mucus Threads Present (Normal) Epithelial Cells (non renal) None seen {/hpf} (Normal) Range: 0 - 10 RBC None seen {/hpf} (Normal) Range: 0 - 3 WBC 0-5 {/hpf} (Normal) Range: 0 - 5 :06 Vitamin D Hydroxy (48998) Comments: PATIENT NOT FASTINGPERFORMED BY: [facility]6[address] [facility] [id number] Vitamin D, 25-Hydroxy 27.0 ng/mL (Abnormal) Range: 32.0-100.0 Comments: Recent studies consider the lower limit of 32.0 ng/mL to be athreshold for optimal health.Larry BARRERA. J Nutr. 2004;135(2):317-22. :06 TSH (89620) Comments: PATIENT NOT FASTINGPERFORMED BY: [facility]6[address] [facility] [id number] TSH 4.620 {uIU/mL} (Abnormal) Range: 0.450-4.500 :06 URINALYSIS, W/ MICRO (49735) Comments: PATIENT NOT FASTINGPERFORMED BY: [facility] [id number] Microscopic Examination MICRON (Normal) Comments: Microscopic follows if indicated. Microscopic Examination See below: (Normal) Nitrite, Urine Negative (Normal) Bilirubin Negative (Normal) Ketones Negative (Normal) Occult Blood Negative (Normal) Urobilinogen,Semi-Qn 0.2 mg/dL (Normal) Range: 0.0-1.9 Glucose Negative (Normal) Protein Negative (Normal) Appearance Clear (Normal) Urine-Color Yellow (Normal) WBC Esterase Negative (Normal) pH 6.5 (Normal) Range: 5.0-7.5 Specific [place] 1.007 (Normal) Range: 1.005-1.030 :06 MICROALBUMIN: CREATININE RATIO Comments: PATIENT NOT FASTINGPERFORMED BY: [facility] CenterXqigzv5119 [facility] [id number] ([id number]) AND (30622) Microalb/Creat Ratio 13.5 {mg/g_creat} (Normal) Range: 0.0-30.0 Creatinine, Urine 19.3 mg/dL (Normal) Range: 15.0-278.0 Microalbumin, Urine 2.6 ug/mL (Normal) Range: 0.0-17.0 :06 METABOLIC PANEL, COMPREHENSIVE Comments: PATIENT NOT FASTINGPERFORMED BY: [facility]6[address] [facility] [id number] ([id number]) Alkaline Phosphatase, S 81 [iU]/L (Normal) Range: [...] MANUAL DIFF Comments: PATIENT NOT FASTINGPERFORMED BY: [facility] ElmerWfbeze1455 [facility] [id number] Information: [id number] (27613) Immature Grans (Abs) 0.0 {x10E3/uL} (Normal) Range: [...] CHOL 191 mg/dL (Normal) Comments: <200 mg/dL Lggrnzqlw245-860 mg/dL Borderline>240 mg/dL High Risk HDL 57 [...] {uIU/mL} (Normal) Range: 0.358-3.74 :05 VIT D,25 09998 29.2 ng/mL (Abnormal) Range: 32.0-100.0 Comments: Recent studies consider the lower limit of 32.0 ng/mL to daren threshold for optimal health.Larry BARRERA. J Nutr. 2004;135(2):317-22.Performed at: [facility] [id number] Director: Caprice Woods MD 50-Iwf-14559:58 URINE VENICE CULTURE-DESMOND COL Comments: PATIENT NOT FASTINGClinical Information: SRC:UR ADD [id number] PERFORMED BY: [facility] [address] [id number] COUNT ([id number]) Result 1 BETAGB (Normal) Comments: Beta hemolytic [...] Final report (Normal) Culture,Comprehensive :59 Urinalysis, Office (50303) UA - BILIRUBIN Negative (Normal) UA - [...] TIMED TSH 3.448 {uIU/mL} Comments: PERFORMED BY: JOSE DAVID [facility] Rsmdaz7326 [facility]Former[facility] [id number] 5:11 (Normal) Range: 0.450-4.500 TSH 4.26 {uIU/mL} [...] breast cancer Metastatic breast cancer : Reviewed Leather Case Finisher Letter Indication: Metastatic breast cancer Benign essential hypertension : Continue Current Prescription(s) Indication: Benign essential hypertension Hypercholesterolemia : Cholesterol mgmt Indication: Hypercholesterolemia Benign essential hypertension : HTN/CAD Red Flags Indication: Benign essential hypertension Metastatic breast cancer : Reviewed Lab Indication: Metastatic breast cancer Metastatic breast cancer : Reviewed Diagnostic Tests Indication: Metastatic breast cancer Metastatic breast cancer : Reviewed Leather Case Finisher Letter Indication: Metastatic breast cancer Non-smoker : [...] of right ankle, initial encounter : Reviewed Leather Case Finisher Letter Indication: Sprain of right ankle, initial encounter Metastatic breast cancer : Reviewed Leather Case Finisher Letter Indication: Metastatic breast cancer Benign essential [...] Osteoporosis Planned Observations TSH (THYROID STIMULATING HORMONE) (35912)Indication: Hypothyroidism, unspecified On: 38-Set-636140:32 Request Comments: re check in 6 weeks TSH (THYROID STIMULATING HORMONE) (10411)Indication: Hypothyroidism, unspecified On: 62-Bfj-244773:36 Request T4, FREE (THYROXINE) (92141)Indication: Hypothyroidism, unspecified On: 28-Zdq-162431:33 Request T3, FREE (TRIDOTHYRONINE) (03242)Indication: Hypothyroidism, unspecified On: 00-Cmg-713295:33 Request CALCIFIDIOL (89781) VIT D 25Indication: Vitamin D deficiency, unspecified On: 07-Yhh-169105:47 Request TSH (79463)Indication: Hypothyroidism, unspecified On: :46 Request URINALYSIS, W/ MICRO (18608)Indication: Benign essential hypertension On: :46 Request MICROALBUMIN: CREATININE RATIO (73361) AND (02745)Indication: Benign essential hypertension On: 36-Fdu-214391:46 Request METABOLIC PANEL, COMPREHENSIVE (34716)Indication: Benign essential hypertension On: :46 Request LIPID PANEL (13773)Indication: Hypercholesterolemia On: :46 Request CBC W/AUTO DIFF WBC (70320)Indication: Benign essential hypertension On: :46 Request URINE VENICE CULTURE-DESMOND COL COUNT (57153)Indication: UTI symptoms On: 12-Fqb-063075:31 Request LIPID PANEL (18521)Indication: Hypercholesterolemia On: :55 Request Comments: November 2016 MICROALBUMIN: CREATININE RATIO (96637) AND (67432)Indication: Benign essential hypertension On: :54 Request Comments: November 2016 URINALYSIS (45463)Indication: Benign essential hypertension On: :54 Request Comments: November 2016 CBC, Platelets & Auto Diff (43595)Indication: Benign essential hypertension On: :54 Request Comments: November 2016 Metabolic Panel, Comprehensive (51251)Indication: Benign essential hypertension On: :54 Request Comments: November 2016 TSH (93202)Indication: Hypothyroidism, unspecified On: :53 Request Comments: due in November 2016 Vitamin D Hydroxy (38391)Indication: Vitamin D deficiency, unspecified On: 11-Cye-573576:01 Request URINALYSIS, W/ MICRO (01602)Indication: Benign essential hypertension On: 51-Pfh-837129:00 Request MICROALBUMIN: CREATININE RATIO (48828) AND (70594)Indication: Benign essential hypertension On: 76-Dfc-408338:00 Request METABOLIC PANEL, COMPREHENSIVE (66414)Indication: Benign essential hypertension On: 12-Top-893068:00 Request LIPID PANEL (85716)Indication: Hypercholesterolemia On: :00 Request CBC WITH MANUAL DIFF (90493)Indication: Benign essential hypertension On: 47-Jux-191735:00 Request TSH (60105)Indication: Hypothyroidism, unspecified On: 85-Hbn-801834:00 Request Vitamin D Hydroxy (97512)Indication: Osteoporosis On: :44 Request URINALYSIS, W/ MICRO (71369)Indication: Benign essential hypertension On: :41 Request MICROALBUMIN: CREATININE RATIO (37716) AND (56089)Indication: Benign essential hypertension On: :41 Request METABOLIC PANEL, COMPREHENSIVE (96692)Indication: Benign essential hypertension On: :41 Request LIPID PANEL (98578)Indication: Benign essential hypertension On: :41 Request CBC WITH MANUAL DIFF (03784)Indication: Benign essential hypertension On: 21-Hfc-179134:41 Request TSH (25705)Indication: Hypothyroidism, unspecified On: 39-Ziw-747482:40 Request TSH (01820)Indication: Hypothyroidism, unspecified On: 58-Ftc-799779:09 Request LIPID PANEL (41666)Indication: Hypercholesterolemia On: :12 Request METABOLIC PANEL, COMPREHENSIVE (31724)Indication: Hypercholesterolemia On: :12 Request TSH (06749)Indication: Hypothyroidism, unspecified On: :12 Request Planned Procedures Radiology - Ankle - LeftBy: Bradley, On: 24-May-2018 Intent Lilian ELECTROCARDIOGRAM, COMPLETE (ECG) On: 06-Dec-2017 Intent (69743)By: Tayla Espinal DO Comments: nsr no acute chg DO, Tayla Espinal DO, Tayla PNEUM VAC ADLT/IMUMNOSPR, SBC/INTRM On: 24-Mar-2017 Intent (59721)By: Tayla Espinal DO Comments: lot:[id number]:69-06-1421aph:IM left deltoid dose:0.5ml given by:hayley Us LPN DO, Tayla Espinal DO, Tayla ELECTROCARDIOGRAM, COMPLETE (ECG) On: 04-Jan-2017 Intent (61059)By: Tayla Espinal DO Comments: nsr no acute cgh DO, Tayla Espinal DO, Tayla PHYSICAL THERAPY EVALUATION (92177)By: On: 11-May-2015 Intent Elizabeth Villanueva CNP Radiology - Knee - RightBy: Kay MUÑOZ, On: 11-May-2015 Intent Elizabeth Watts MAMMOGRAM, SCREENING, BOTH BREAST On: 22-Aug-2014 Intent (59170)By: Tayla Espinal DO Comments: send results to Tayla Matthews DO, DO, Kathleen DEXA SCAN AXIAL SKELETON (88595)By: On: 22-Aug-2014 Intent Tayla Espinal DO, DO, Comments: send results to Tayla Hall DO Eprescribed prescriptions ([id number])By: On: 13-Sep-2012 Intent Lilian Richardson LPN Inhaler Demonstration (21583)By: On: 04-Jul-2012 Intent Elizabeth Villanueva CNP Inhaler Demonstration (69409)By: On: 04-Jul-2012 Intent Elizabeth Villanueva CNP Aerosol Treatment (64491)By: Kay On: 04-Jul-2012 Intent Elizabeth MUÑOZ Eprescribed prescriptions ([id number])By: On: 27-May-2011 Intent Elizabeth Villanueva CNP EKG (93207)By: Tayla Espinal DO On: 23-Sep-2010 Intent Tayla Espinal DO Kylie DO, Comments: nsr no acute chg Tayla Eprescribed prescriptions ([id number])By: On: 23-Sep-2010 Intent Kylie DOTayla Kylie DO, Tayla Kylie DO, Tayla EKG (88006)By: Tayla Espinal DO On: 01-Jun-2009 Intent Tayla Espinal DO Kylie DO, Comments: nsr no acute changes Tayla SPECIMEN HANDLING/TRANSPORT (83497)By: On: 28-Nov-2008 Intent Keren Wilde LPN Radiology [...] Advance Directives Name Dates Details Immunization Registry [place] - Effective on 03/24/2017. Effective: 24-Mar-2017 Expiration [...]
--- OUTSIDE RECORDS SUMMARY | 2018-07-15 17:20 | XMS RPT_ITS ---
:1940 Author Organization [facility] Support Name Relationship Address Phone ELIZABETH MORENO Unavailable Unavailable + AMELIE KAREN Unavailable Unavailable + R Unavailable Unavailable Unavailable ELIZABETH MORENO Unavailable Unavailable + KAREN KINSEY Unavailable Unavailable + R Unavailable Unavailable Unavailable ELIZABETH MORENO Unavailable Unavailable + [place] [address] AMELIE KAREN Unavailable Unavailable + [place] [address] R Unavailable Unavailable Unavailable ELIZABETH MORENO Unavailable Unavailable + [place] [address] AMELIE KAREN Unavailable Unavailable + [place] [address] R Unavailable Unavailable Unavailable TIFFANIE ELIZABETH Unavailable [address] + [place] [address] AMELIE KAREN Unavailable [address] + [place] [address] R Unavailable Unavailable Unavailable TIFFANIE ELIZABETH Unavailable [address] + [place] [address] AMELIE KAREN Unavailable [address] + [place] [address] R Unavailable Unavailable Unavailable TIFFANIE ELIZABETH Unavailable [address] + [place] [address] AMELIE KAREN Unavailable [address] + [place] [address] R Unavailable Unavailable Unavailable TIFFANIE ELIZABETH Unavailable [address] + [place] [address] AMELIE KAREN Unavailable [address] + [place] [address] R Unavailable Unavailable Unavailable ELIZABETH MORENO Unavailable [address] + [place] [address] KAREN KINSEY Unavailable [address] + [place] [address] R Unavailable Unavailable Unavailable ELIZABETH MORENO Unavailable [address] + [place] [address] KAREN KINSEY Unavailable [address] + [place] [address] R Unavailable Unavailable Unavailable ELIZABETH MORENO Unavailable [address] + [place] [address] KAREN KINSEY Unavailable [address] + [place] [address] R Unavailable Unavailable Unavailable ELIZABETH MORENO Unavailable [address] + [place] [address] KAREN KINSEY Unavailable [address] + [place] [address] R Unavailable Unavailable Unavailable ELIZABETH MORENO Unavailable [address] + [place] [address] KAREN KINSEY Unavailable [address] + [place] [address] R Unavailable Unavailable Unavailable ELIZABETH MORENO Unavailable [address] + [place] [address] KAREN KINSEY Unavailable [address] + [place] [address] R Unavailable Unavailable Unavailable ELIZABETH MORENO Unavailable [address] + [place] [address] KAREN KINSEY Unavailable [address] + [place] [address] R Unavailable Unavailable Unavailable ELIZABETH MORENO Unavailable [address] + [place] [address] AMELIE KAREN Unavailable [address] + [place] [address] R Unavailable Unavailable Unavailable ELIZABETH MORENO Unavailable [address] + [place] [address] KAREN KINSEY Unavailable [address] + [place] [address] R Unavailable Unavailable Unavailable Care Team Providers Name Role Phone TOBY, [place] Solis Attending Unavailable MASCI, [place] Solis Referring Unavailable EVENSMYKE Attending Unavailable MASCI, [place] Solis Referring Unavailable MASCI, [place] Solis Referring Unavailable MASCI, [place] Solis Referring Unavailable MASCI, [place] Solis Attending Unavailable MASCI, [place] Solis Referring Unavailable RONDA, NAVDEEP Attending Unavailable MYRACORRY Referring Unavailable MYRA, CORRY Attending Unavailable MASCI, [place] Solis Referring Unavailable RONDA, NAVDEEP Admitting Unavailable RONDA, NAVDEEP Attending Unavailable ANGELOVMAGALIA Referring Unavailable RONDA, NAVDEEP Admitting Unavailable RONDA, NAVDEEP Referring Unavailable RONDA, NAVDEEP Admitting Unavailable RONDA, NAVDEEP Attending Unavailable RONDA, NAVDEEP Referring Unavailable MASCI, [place] Solis Attending Unavailable MASCI, [place] Solis Referring Unavailable MASCI, [place] Solis Referring Unavailable MASCI, [place] Solis Referring Unavailable MASCI, [place] Solis Referring Unavailable MASCI, [place] Solis Attending Unavailable MASCI, [place] Solis Referring Unavailable MASCI, [place] Solis Referring Unavailable RONDA, NAVDEEP Referring Unavailable RONDA, NAVDEEP Attending Unavailable RONDA, NAVDEEP Referring Unavailable RONDA, NAVDEEP Admitting Unavailable RONDA, NAVDEEP Attending Unavailable RONDA, NAVDEEP Referring Unavailable MASCI, [place] Will Referring Unavailable MASCI, [place] Will Referring Unavailable MASCI, [place] Will Referring Unavailable MASCI, [place] Will Referring Unavailable MASCI, [place] Will Referring Unavailable MASCI, [place] Will Referring Unavailable MASCI, [place] Solis Referring Unavailable MASCI, [place] Solis Attending Unavailable MASCI, [place] Solis Referring Unavailable MASCI, [place] Solis Referring Unavailable RONDA, NAVDEEP Referring Unavailable OGANA DUNLAP (PATIENT SUPPORT REPRESENTATIVE) Attending Unavailable RONDA, NAVDEEP Referring Unavailable MASCI, [place] Solis Referring Unavailable OGANA DUNLAP (PATIENT SUPPORT REPRESENTATIVE) Referring Unavailable RONDA, NAVDEEP Attending Unavailable RONDA, NAVDEEP Referring Unavailable MASCI, [place] Solis Attending Unavailable MASCI, [place] Solis Referring Unavailable MASCI, [place] Solis Referring Unavailable MASCI, [place] Solis Referring Unavailable RONDA, NAVDEEP Referring Unavailable RONDA, NAVDEEP Referring Unavailable MASCI, [place] Solis Referring Unavailable RONDA, NAVDEEP Attending Unavailable RONDA, NAVDEEP Referring Unavailable MASCI, [place] Solis Referring Unavailable MASCI, [place] Solis Attending Unavailable MASCI, [place] Solis Referring Unavailable MASCI, [place] Solis Referring Unavailable RONDA, NAVDEEP Referring Unavailable RONDA, NAVDEEP Attending Unavailable RONDA, NAVDEEP Referring Unavailable MASCI, [place] Solis Attending Unavailable MASCI, [place] Solis Referring Unavailable MASCI, [place] Solis Referring Unavailable MASCI, [place] Solis Referring Unavailable MASCI, [place] Solis Referring Unavailable MASCI, [place] Solis Referring Unavailable Kylie DO, Tayla Attending Unavailable Kylie DO, Tayla Referring Unavailable Kylie DO, Tayla Consulting Unavailable Kylie, Tayla Primary Care Unavailable Jose May Attending Unavailable Kylie, Tayla Attending Unavailable Kylie, Tayla Referring Unavailable Kylie, Tayla Primary Care Unavailable Kylie, Tayla Attending Unavailable Kylie, Tayla Primary Care Unavailable Kylie, Tayla Attending Unavailable Kylie, Tayla Primary Care Unavailable Pizano PA-C, Stacey Attending Unavailable Kylie, Tayla Referring Unavailable Kylie, Tayla Primary Care Unavailable Pizano PA-C, Stacey Attending Unavailable Pizano PA-C, Stacey Referring Unavailable Kylie, Tayla Primary Care Unavailable Tre Mcguire Attending Unavailable Masci, [place] Attending Unavailable Kylie, Tayla Primary Care Unavailable Pizano PA-C, Stacey Attending Unavailable Kylie, Tayla Referring Unavailable Kylie, Tayla Primary Care Unavailable Kylie, Tayla Primary Care Unavailable Tereletsky, Yosef Admitting Unavailable Gbaruk, Kombian Attending Unavailable Tereletsky, Yosef Admitting Unavailable Kylie, Tayla Primary Care Unavailable Tereletsky, Yosef Consulting Unavailable Tereletsky, Yosef Attending Unavailable Tereletsky, Yosef Admitting Unavailable Kylie, Tayla Primary Care Unavailable [place]bar[place], Kombian Consulting Unavailable Norris Hartley Attending Unavailable Tereletsky, Yosef Admitting Unavailable Kylie, Tayla Primary Care Unavailable [place]bar[place], Kombian Consulting Unavailable Naeem, Norris Attending Unavailable Pizano PA-C, Stacey Attending Unavailable Kylie, Tayla Referring Unavailable Kylie, Tayla Primary Care Unavailable Pizano PA-C, Stacey Attending Unavailable Kylie, Tayla Referring Unavailable Kylie, Tayla Primary Care Unavailable Pizano PA-C, Stacey Attending Unavailable Kylie, Tayla Referring Unavailable Kylie, Tayla Primary Care Unavailable Lilian Huerta PATIENT SUPPORT REPRESENTATIVE-C Attending Unavailable Lilian HuertaC Referring Unavailable Kylie, Tayla Primary Care Unavailable PROBLEMS PROBLEMS DATE TYPE CONDITION / CODE ATTENDING STATUS SOURCE 06/06/2018 Unknown R07.81 - Pleurodynia Kylie, Active [place] / R07.81(ICD-10) [facility] Repository 05/03/2018 Active 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 / Clinic Main C79.31(ICD-10) [facility] Repository 05/17/2018 Active Other cerebrovascular NA Active [facility] disease / Clinic Main I67.89(ICD-10) [facility] Repository 05/17/2018 Active Radiological NA Active [facility] procedure and Clinic Main radiotherapy as the [facility] cause of abnormal Repository reaction of the patient, or of later complication, without mention of misadventure at the time of the procedure / Y84.2(ICD-10) 05/17/2018 Active Encounter for other NA Active [facility] preprocedural [facility] Main examination / [facility] Z01.818(ICD-10) Repository 12/01/2017 Unknown C50.919 - Malignant Pizano PA-C, Active [facility] ne[facility] of [facility] unspecified site of Hospital unspecified female Repository breast / C50.919(ICD-10) 09/21/2017 Unknown R11.2 - Nausea with [place]bar[place], Kombian Active [place] vomiting, unspecified Community / R11.2(ICD-10) Hospital Repository 09/08/2017 Active Other specified NA Active [facility] hypothyroidism / Clinic Main E03.8(ICD-10) [facility] Repository 09/08/2017 Active 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 / Clinic Main E06.3(ICD-10) [facility] Repository 08/14/2017 Active Secondary malignant RONDA, 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 / Repository C79.49(ICD-10) 08/02/2017 Active 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) Clinic Main [facility] Repository 03/21/2017 Active 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 / C78.01(ICD-10) [facility] Repository 02/01/2017 Active 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 / [facility] C50.812(ICD-10) Repository 02/01/2017 Active 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+) Clinic Main / Z17.0(ICD-10) [facility] Repository 07/26/2017 Unknown R19.7 - Diarrhea, Ungur, Remus Active [place] unspecified / Community R19.7(ICD-10) Hospital Repository PROCEDURES PROCEDURES No Procedure Records FoundRESULTS RESULTS INITAL EVALUATION (1) Observed: 07/02/2018 Status: F Source: [place] - PT 11:56 AM [facility] REPOSITORY [facility] Physical [facility] [address] [place] [address] [address] [place] [address] / REHABILITATION SERVICES INITIAL EVALUATION MR#: [id number] Acct: [id number] Name: ANNA BARRERA Rep #: [id number] : 1940 78 From: Alistair Rodriguez DPT Referring Dr.: Tayla Espinal DO Status: REG RCR Insurance: ANTHEM SELF PAY INSURANCE Patient's Visit Information ANNA BARRERA is a 78 year old F referred to Physical Therapy by Tayla Espinal DO with a diagnosis of Left Ankle Sprain. Date of Evaluation: 07/02/18 Physical Therapist: Alistair Rodriguez DPT - Visit Plan Frequency: 2x /Week Duration: 4 Weeks Plan: Focus on LE and core s/s - Subjective Findings: Had Gamma knife in Jul 2016- worked and got rid of a spot on her brain- Had steriods due to weakness in her arms- October, December and February- then he took the situation to the tumor board and had the steriod again in the fall. 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 CTScan and PETScan. The day after Thanksgi she missed the step coming down and fell- the left knee hurt- 5 days later the left ankle started bothering her. It was really sore so she stopped exercise. Jun 04 bent over and felt a pain in the left side- saw PCP and had x-rays of the ankle. No fracture. Dr. Espinal ordered the PET Scan on the which showed an old fracture in the ribs. The PET scan was clear of cancer. Ankle- was on a walker and cane for awhile- so she is now off of them. The pain is located now along the medial malleolus- no pain that radiates to the knee or foot. She is happier in shoes and on carpet. Feels unstable and is afraid to use it. Worst: 5/10 Agg: being without shoes and being on it. Eases: sitting down Best: 0/10. Sleep: not disturbed. Describes the pain as achy and sharp/shooting if she is up on it. No N/T in the ankle. Has someone that comes 2x a week to help her shower and someone is also driving for her. Patient feels that she is 60% back to normal. - Objective Posture: FH, RS- increased guarding of the left side of her body. Gait: abnormal- toes turned out to the side with wide FLOR. Stairs: non recip with 2 HR and signficant UE A. HR/TR: able with UE A- mild discomfort. SLS: unable but will weight shift and cook pickled meat opposite LE-immediate LOB when no UE A. Palpation: tender along lateral and medial malleolus. ROM: WFL in all planes. Strength: Ankle: 4/5 throughout Knee: 4+/5 Hip: 4-/5 - Goals Goal 1:: Patient will be I with HEP and progression Goal Time Frame: 4-6 Weeks Goal 2:: Patient will SLS for 4 seconds without LOB Goal Time Frame: 4-6 Weeks Goal 3:: Patient will demo 5/5 strength in knee and ankle where deficit Goal Time Frame: 4-6 Weeks Goal 4:: Patient will asc/desc 8 stairs recip with 1 HR Goal Time Frame: 4-6 Weeks - Rehabilitation Potential Physical Therapy Diagnosis: Patient presents with hypomobility- she has decreased strength and muscular endurance leading to abnormal gait and increased ability to perform ADL's. Rehabilitation Potential: Fair - Anticipated Interventions Patient/Client Instruction: Educate patient on: Benefits of Fitness Program Therapeutic Exercise to Include: Strength training, Endurance training, Balance training, Coordination, Agility training, Body mechanics, Postural training, Flexibilty training, Gait and locomotor training, Dynamic Lumbar Stabilization For the Purpose of:: To improve muscle performance and motor function Thank you for the opportunity to evaluate your patient. For Medicare and Medicare HMO plans, please review the plan of care and approve it. It will need to be FAXED BACK to us at [phone] for Medicare purposes. For Medicare only, by signing this I certify the plan of care. Please let me know if there are questions or concerns regarding this plan of care. Physician Signature: Date: <Electronically signed by Alistair Rodriguez DPT> 07/02/18 1156 CC: Tayla Espinal DO ELR Signed INITAL EVALUATION (1) Observed: 07/02/2018 Status: F Source: RAMIRO FELA 11:55 AM [facility] REPOSITORY [facility] [address] [place] [address] [address] [place] [address] / REHABILITATION SERVICES INITIAL EVALUATION MR#: [id number] Acct: [id number] Name: ANNA BARRERA Rep #: [id number] : 1940 78 From: Alistair Rodriguez DPT Referring DrAlondra: Tayla Espinal DO Status: REG RCR Insurance: ANTHEM SELF PAY INSURANCE Patient's Visit Information ANNA BARRERA is a 78 year old F referred to Physical Therapy by Tayla Espinal DO with a diagnosis of Left Ankle Sprain. Date of Evaluation: 07/02/18 Physical Therapist: Alistair Rodriguez DPT - Visit Plan Frequency: 2x /Week Duration: 4 Weeks Plan: Focus on LE and core s/s - Subjective Findings: Had Gamma knife in Jul 2016- worked and got rid of a spot on her brain- Had steriods due to weakness in her arms- October, December and February- then he took the situation to the tumor board and had the steriod again in the fall. 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 CTScan and PETScan. The day after Thanksgi she missed the step coming down and fell- the left knee hurt- 5 days later the left ankle started bothering her. It was really sore so she stopped exercise. Jun 04 bent over and felt a pain in the left side- saw PCP and had x-rays of the ankle. No fracture. Dr. Espinal ordered the PET Scan on the which showed an old fracture in the ribs. The PET scan was clear of cancer. Ankle- was on a walker and cane for awhile- so she is now off of them. The pain is located now along the medial malleolus- no pain that radiates to the knee or foot. She is happier in shoes and on carpet. Feels unstable and is afraid to use it. Worst: 5/10 Agg: being without shoes and being on it. Eases: sitting down Best: 0/10. Sleep: not disturbed. Describes the pain as achy and sharp/shooting if she is up on it. No N/T in the ankle. Has someone that comes 2x a week to help her shower and someone is also driving for her. Patient feels that she is 60% back to normal. - Objective Posture: FH, RS- increased guarding of the left side of her body. Gait: abnormal- toes turned out to the side with wide FLOR. Stairs: non recip with 2 HR and signficant UE A. HR/TR: able with UE A- mild discomfort. SLS: unable but will weight shift and cook pickled meat opposite LE-immediate LOB when no UE A. Palpation: tender along lateral and medial malleolus. ROM: WFL in all planes. Strength: Ankle: 4/5 throughout Knee: 4+/5 Hip: 4-/5 - Goals Goal 1:: Patient will be I with HEP and progression Goal Time Frame: 4-6 Weeks Goal 2:: Patient will SLS for 4 seconds without LOB Goal Time Frame: 4-6 Weeks Goal 3:: Patient will demo 5/5 strength in knee and ankle where deficit Goal Time Frame: 4-6 Weeks Goal 4:: Patient will asc/desc 8 stairs recip with 1 HR Goal Time Frame: 4-6 Weeks - Rehabilitation Potential Physical Therapy Diagnosis: Patient presents with hypomobility- she has decreased strength and muscular endurance leading to abnormal gait and increased ability to perform ADL's. Rehabilitation Potential: Fair - Anticipated Interventions Patient/Client Instruction: Educate patient on: Benefits of Fitness Program Therapeutic Exercise to Include: Strength training, Endurance training, Balance training, Coordination, Agility training, Body mechanics, Postural training, Flexibilty training, Gait and locomotor training, Dynamic Lumbar Stabilization For the Purpose of:: To improve muscle performance and motor function Thank you for the opportunity to evaluate your patient. For Medicare and Medicare HMO plans, please review the plan of care and approve it. It will need to be FAXED BACK to us at [phone] for Medicare purposes. For Medicare only, by signing this I certify the plan of care. Please let me know if there are questions or concerns regarding this plan of care. Physician Signature: Date: <Electronically signed by Alistair Rodriguez DPT> 07/02/18 1155 CC: Tayla Espinal DO ELR Signed PET/CT TUMOR BASE Observed: 06/18/2018 Status: F Source: RAMIRO -THIGH SUBS 8:07 AM [facility] REPOSITORY [facility] Imaging Services [address] [place] [address] PET/CT Tumor Base -Thigh Subs MR#: [id number] Acct: [id number] Name: ANNA BARRERA Rep #: [id number] : 1940 F 77 From: Ceferino Ventura DO PCP: Tayla Espinal DO Status: REG CLI Study: PET/CT Tumor Base -Thigh Subs Date of Exam: 06/18/18 Exam# [id number] Ordering Dr: Tayla Espinal DO EXAMINATION: FDG PET CT INDICATIONS: A 77-year-old female with reported history of carcinoma of the breast presenting for restaging examination. COMPARISON EXAMINATION: CT of the abdomen and pelvis report dated 09/08/17. INDEX LESION SIZE SUV INTERPRETATION Right lower lateral hemithorax pulmonary parenchyma, right lower lobe 11.0 mm (frame 175) 1.9 Quantitative criteria for viable neoplasm are not fulfilled, sequential radiologic investigation recommended Left lobe hepatic parenchyma segment II 6.8 mm (frame 154) 3.2 ratio < 2.0 Quantitative criteria for viable neoplasm are not fulfilled, correlation with magnetic resonance imaging may be of benefit NON-INDEX LESION SIZE SUV INTERPRETATION Left lower lateral chest wall ninth-tenth ribs 2.9 Most consistent with trauma-fracture TECHNIQUE: Following the intravenous administration of 13.7 mCi of F-18 deoxyglucose via the right antecubital fossa, multiplanar image acquisitions of the neck, chest, abdomen and pelvis to level of mid thigh, obtained at one hour post radiopharmaceutical administration contemporaneously interpreted with the current CT of the neck, chest, abdomen and pelvis to level of mid thigh, dated 06/18/[address] of the abdomen and pelvis report dated 09/08/17 reveal: SERUM GLUCOSE LEVEL: 83 mg/dl. HEIGHT: 62 inches. WEIGHT: 154 lbs. FINDINGS: 1. A distinct nodular focus of increased glucose metabolism is demonstrated in the right lower lateral hemithorax pulmonary parenchyma, anterobasal segment of the right lower lobe generating a calculated maximum standard uptake value of 1.9. The maximal axial diameter of the corresponding parenchymal density, which appears juxtapositioned between the right lateral chest wall and hepatic parenchyma, is 11.0 mm (AP). 2. Facilitated FDG uptake is noted in the left lateral chest wall, left lower ninth-tenth ribs, linear in presentation defined in the horizontal plane. The calculated maximum standard uptake value is 2.9. 3. A small nodular focus of enhanced glucose distribution is demonstrated in the left lobe of the hepatic parenchyma (3.1) involving segment II generating a calculated maximum standard uptake value of 3.2 with a lesion to liver background ratio less than 2.0. The maximal axial diameter of the metabolic abnormality on review of CT of the abdomen dated 06/18/18 is approximately 6.8 mm (AP). 4. Normal physiologic distribution of the radiopharmaceutical is apparent in the splenic parenchyma, both renal units, bladder and visualized intestinal tract. There is uniform distribution of the radiopharmaceutical concentration defined in the visualized cerebellar hemispheres and cerebral cortical structures.? Diffuse intestinal tract activity is noted throughout all four quadrants of the abdominal-pelvic retroperitoneum, mesentery consistent with normal physiologic distribution of the radiopharmaceutical. Pertinent CT findings are as follows. CHEST: Atherosclerotic calcification is defined in the thoracic aorta without evidence of dilatation, aneurysm formation. Coronary arterial calcification is observed. The left breast appears surgically absent. Surgical clips are identified in the left axillary region. There are no parenchymal densities-nodules defined in the right-left hemithorax demonstrating discernible, quantitatively significant increased glucose metabolism. ABDOMEN AND PELVIS: Atherosclerotic calcification is defined in the abdominal aorta without evidence of dilatation, aneurysm formation. Pelvic arterial calcification is observed. Right-left inguinal soft tissue densities are non-glucose avid. Increased density defined in the right kidney demonstrates no evidence of facilitated glucose metabolism. SKELETAL: Degenerative changes defined in the cervical, thoracic and lumbar spine demonstrate no evidence for glucose hypermetabolism. There appears to be evidence of vertebral hemangioma formation noted at the level of the seventh thoracic vertebra. PET/PET/CT Tumor Base -Thigh Subs IMPRESSION: 1. Increased glucose metabolism identified in the right lower lateral hemithorax pulmonary parenchyma, right lower lobe does not fulfill quantitative criteria for viable neoplasm. (Lima et al, Annals of Internal Medicine, 138:724, 2003). 2. Metabolic and/or anatomic stability may be ensured in the right hemithorax pulmonary parenchymal abnormality with repeat FDG PET study and/or CT of the thorax in three months. (Xiu, Journal of Nuclear Medicine 45:88, P2004. Myra, Seminars in Thoracic and Cardiovascular Surgery 14:292, 2002). 3. Facilitated FDG uptake noted in the left lower lateral chest wall contiguous to the ninth-tenth ribs is most consistent with trauma-fracture. Plain film radiography correlation may be of benefit. 4. Enhanced uptake noted in the left lobe of the hepatic parenchyma involving segment II does not fulfill strict quantitative criteria for viable hepatic parenchymal neoplasm. (Eliane et al, Archives of Surgery, 133:510 1997). Correlation with magnetic resonance imaging utilizing Gd-[id number]-DTPA may be of benefit for further evaluation. (Hayes et al, J Nucl Med 51: 692, 2010). Electronic Signature Ceferino Ventura D.O. Electronically Signed: Ceferino Ventura DO at 22:36 EST Tel , Service support , CC: Tayla Espinal DO Kitchen Helper: Signed RIBS UNI MIN 3V Observed: 06/06/2018 Status: F Source: [place] W/PA CHEST 2:19 PM [facility] REPOSITORY [facility] Imaging Services [address] [place] [address] Ribs Uni Min 3V w/PA Chest MR#: [id number] Acct: [id number] Name: ANNA BARRERA Rep #: [id number] : 1940 F 77 From: Nestor Holley MD PCP: Tayla Espinal DO Status: REG CLI Study: Ribs Uni Min 3V w/PA Chest Date of Exam: 06/06/18 Exam# [id number] Ordering Dr: Tayla Espinal DO STUDY: X-RAY - UNILATERAL RIBS ( LEFT ) WITH CHEST REASON FOR EXAM: Female, 77 years old. Left-sided chest pain, history of left mastectomy. TECHNIQUE - RIBS: 4 view(s) of the ribs. TECHNIQUE - CHEST: Single frontal view of the chest. The patient is mildly rotated to the left on that view. COMPARISON: None. FINDINGS - RIBS: There are deformities of the posterolateral left sixth-ninth ribs consistent with old healed fractures. There is suggestion of an inferior cortical defect of the posterior left fifth rib and some images that may also be the sequelae of old injury versus a destructive bone lesion. FINDINGS - CHEST: The lungs are clear and expanded. There is no demonstrated pleural abnormality. Normal size heart. Normal mediastinum and sabrina. Normal visualized pulmonary arteries. There is atherosclerotic calcification of the aortic arch bleed. There are multilevel degenerative changes of the visualized thoracic spine. Normal visualized right ribs. 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 Surgical clips noted in the soft tissues of the left lateral chest wall. There is no demonstrated abnormality of the visualized soft tissue structures of the upper abdomen. RAD/Ribs Uni Min 3V w/PA Chest IMPRESSION: RIBS: 1. Old healed fracture deformities of the posterolateral left 6-9 ribs. 2. Cortical defect of the posterior left fifth rib, possibly an additional site of old injury versus focal destructive lesion. If clinical suspicion warrants additional imaging, one might consider bone scan or PET CT scan. CHEST: No acute cardiopulmonary disease. Electronically Signed: Mumtaz Holley MD at 12:42 EST , Service support , CC: Tayla Espinal DO Kitchen Helper: Signed [place] ABS GR + CBC Collected: 05/30/2018 Status: F Source: [place] 10:25 AM [facility] REPOSITORY TYPE CODE TESTS RESULT OUT OF REFERENCE UNITS RANGE LAB WWBC 3.70-11.00 k/uL [place] WBC 8.03 LAB WRBC 3.90-5.20 m/uL [place] RBC 4.07 LAB WHGB 11.5-15.5 g/dL [place] Hemoglobin 12.9 LAB WHCT 36.0-46.0 % [place] Hematocrit 40.2 LAB WMCV 80.0-100.0 fL [place] MCV 98.8 LAB WMCH 26.0-34.0 pg [place] MCH 31.7 LAB WMCHC 30.5-36.0 g/dL [place] MCHC 32.1 LAB WRDW 11.5-15.0 % [place] RDW 14.3 LAB WPLT 150-400 k/uL [place] Platelet Cnt 201 LAB WMPV 9.0-12.7 fL Low [place] MPV 8.7 Result Comment: Test performed at: [facility] [place] [address] [place], [place] [address] [place] [address]. LAB ABGRAN 1.45-7.50 k/uL [place] Gran 4.99 Count EMERGENCY DEPARTMENT Observed: 05/29/2018 Status: F Source: [place] SUMMARY 3:36 PM [facility] REPOSITORY [facility] Medical Records Department [address] [place] [address] Emergency Department Summary 05/29/18 1314 MR#: [id number] Acct: [id number] Name: ANNA BARRERA Rep #: [id number] : 1940 77 From: Jose May MD [...] x-rays about 5 days ago. She was prescribed on Aircast and she has been using a cane, but her symptoms persist. Mild swelling to the area but otherwise no associated symptoms. Never had this before. Physical Examination: Vital signs unremarkable. Afebrile. Inspection appears unremarkable except for some minimal diffuse edema to the left ankle region. No deformity. Skin is intact. Normal color. No erythema. No warmth, induration, or fluctuance noted. No laxity. Good range of motion. [...] at this point. The patient declined repeat x-rays. I advised her she may need an MRI to evaluate for stress fractures or ligamentous injury if her symptoms persist. She has been taking Tylenol. I advised her to continue taking Tylenol. She declined opioids as she has a history of alcoholism. She cannot take anti- inflammatories per her oncologist. I suspect she had a sprain and has continued pain from use. There is nothing to suggest infection, gout, DVT, or other pathology. She was given an Aircast, Jb wrap, walker. Follow-up with primary care. Treatment Plan: Above Disposition: Discharge Impression:. Left ankle pain This note was generated with [employer] dictation software. It may contain incorrect words, spelling, and punctuation that were not noted in review of the chart prior to signing ED Disposition - Plan for ED Patient: Chief Complaint: Lower Extremity Injury Referrals: Tayla Espinal, [Primary Care Provider] - What to do if you have Problems For any increased pain, shortness of breath, bleeding, nausea or vomiting, chest pain, or any unexpected problems, contact your Primary Care Provider. Call [facility] ([phone]) or report to the closest Emergency Room. Call 911 if necessary. 05/29/181535 <Electronically signed by Jose May MD> Date Jose May MD Cosigner Signature (If Indicated): Date CC: Tayla Espinal DO DISCHARGE INSTRUCTION Observed: 05/29/2018 Status: F Source: [place] 3:36 PM [facility] REPOSITORY [facility] Medical Records Department [address] [place] [address] Discharge Instruction 05/29/18 1318 MR#: [id number] Acct: [id number] Name: ANNA BARRERA Rep #: [id number] : 1940 77 From: Jose May MD PCP: Tayla Espinal DO Status: [facility] ER ED Disposition - Plan for ED Patient: Chief Complaint: Lower Extremity Injury Instructions: ED RICE Referrals: Tayla Espinal DO [Primary Care Provider] - What to do if you have Problems For any increased pain, shortness of breath, bleeding, nausea or vomiting, chest pain, or any unexpected problems, contact your Primary Care Provider. Call [facility] ([phone]) or report to the closest Emergency Room. Call 911 if necessary. 05/29/18 1536 <Electronically signed by Jose May MD> Date Jose Morales Signature (If Indicated): Date CC: Tayla Espinal DO ANKLE MIN 3 VIEWS Observed: 05/24/2018 Status: F Source: [place] 2:33 PM [facility] REPOSITORY [facility] Imaging Services [address] [place] [address] Ankle min 3 Views MR#: [id number] Acct: [id number] Name: ANNA BARRERA Rep #: [id number] : 1940 F 77 From: Silverio Dow MD PCP: Tayla Espinal DO Status: REG CLI Study: Ankle min 3 Views Date of Exam: 05/24/18 Exam# [id number] Ordering Dr: Lilian Huerta PATIENT SUPPORT REPRESENTATIVEFabián STUDY: X-RAY - LEFT ANKLE REASON FOR EXAM: Female, 77 years old. Twisted ankle TECHNIQUE: 3 view(s) of the ankle. COMPARISON: None. FINDINGS: Normal visualized distal tibia and fibula. Normal medial and lateral malleoli. Normal tibiotalar articulation and ankle mortise. Normal visualized talus and calcaneus. The visualized subtalar, talonavicular, calcaneocuboid and tarsal articulations are normal. The soft tissue structures are unremarkable. RAD/Ankle min 3 Views IMPRESSION: No acute osseous injury is evident. Electronically Signed: Silverio Dow MD at 9:58 EST Tel , Service support , CC: BELÉN Huerta; Tayla Espinal DO Kitchen Helper: Signed PROGRESS Observed: 05/24/2018 Status: COMPLETED Source: [place] 12:57 PM [facility] REPOSITORY HNO ID: [id number] Author: Ky Burkett Service: (none) Author Type: Physician Type: Progress Notes Filed: 05/24/2018 1:02 PM Note Text: Diagnosis: 1) Breast cancer. HPI: Patient is a 77-year-old female whom I initially saw in the hospital for consultation. She was admitted on 01/10/2017 for uncontrolled bleeding from a large breast tumor. A CT of the chest was performed in the emergency room. That study demonstrated a 6.2 x 7.3 x 7.7 cm inhomogeneously vascular mass involving the majority of the left breast along the medial aspect. There was diffuse thickening of the overlying skin observed. There was also evidence of increased markings in the lateral portion of the breast. There were small left axillary lymph nodes noted. Dimensions were not rendered. Significantly, multiple nodules were observed in the right lower lobe. The largest measured 2.6 x 1.5 cm. Increased markings were observed at the lung bases just above the bibasilar atelectasis and/or scarring seen. The mediastinum was observed to be normal as were the hilar regions. Multilevel degenerative changes were observed and thoracic spine. The bleeding was controlled with Gelfoam packing. Patient was seen by general surgery. The patient underwent an ultrasound guided biopsy of the left breast mass on 01/11/2017. 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 COMMENT Immunohistochemistry ([id number]) supports the above diagnosis. 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 Case is reviewed in consultation with Dr. Ibarra of [facility] (complete consultative report viewable in patient?s EMR). ER/MD/Nsh0cnp studies are being performed on sections of tumor and the results from this study will be reported separately ([id number]). RESULTS: ANTIBODY / CLONE RESULT E-Cad (ECH-6) positive, rare cells CK8 (98cqtnL41) positive, focal P63 (7JUL/4A4) negative Calponin-1 (SF797S) negative CD56 (123C3.D5) negative Chromo (LK2H10) negative Synapto (polyclonal) negative CK5-6 (D5 AND 1684) positive Ki-67 (30-9) positive, high P53 (DO-7) positive, high Vimentin (V9) positive TTF-1 (8G7G3/1) negative AE1-3 (AE1/AE3/PCK26) positive CD45 (RP2/18) negative MART-1 (A-103) negative CK7 (OV-TL12/30) positive CK20 (KS20.8) noncontributory MORPHOMETRIC ANALYSIS ER (clone 6F11) 17%, weak MD (clone 16/1E2) 0 Her-2Neu (clone CB11) 0-1+ The prognostic test for HER2 is performed on formalin-fixed paraffin embedded tissue. A 3+ (positive) staining pattern is defined as intense, homogeneous, complete, circumferential membranous staining in >10% of contiguous tumor cells. A similar weak (2+) staining pattern is interpreted as equivocal. JENNA follow-up testing is recommended for all equivocal cases. Positivity/negativity for ER/MD is reported if > or < 1% of the tumor cells are immuno- reactive, respectively. The ASCO/CAP criteria is used for scoring. Reference: Journal of Clinical Oncology, 2013; 31:9363-3499 AND 2010; 16:1161-5813. Duration of fixation: 6 Hrs; Sample Adequate: Yes. These assays have not been validated on decalcified tissues. Results should be interpreted with caution given the likelihood of false negativity on decalcified specimens. These tests were developed and their performance characteristics determined by [facility]. They may not have been cleared or approved by the U.S. Food and Drug Administration. The FDA has determined that such clearance or approval is not necessary. 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 Positive for estrogen receptors (favorable prognostic indicator). Negative for progesterone receptors (unfavorable prognostic indicator). Negative for overexpression of RVJ4ink. Patient underwent an echocardiogram on 01/11/2017 as well. That study demonstrated normal left ventricular size and systolic function. The estimated ejection fraction was 65%. No regional wall motion abnormalities were noted. There was mild mitral valve prolapse. Trivial mitral valve insufficiency was noted. There was mild tricuspid valve insufficiency with mild focal aortic valve thickening. Right ventricular systolic pressure estimated to be 29 mmHg. The patient declined any further radiographic workup in the hospital until she had definitive proof of breast cancer via the biopsy. Previous therapy: 1) Neoadjuvant ddAC followed by Taxol x4 cycles. 2) Left modified radical mastectomy with axillary lymph node dissection 2017. 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 Changes consistent with treatment effect (presurgical neoadjuvant) therapy both in breast and in the lymph nodes. Multiple skin lesions, consistent with seborrheic keratosis. Eleven out of 11 lymph nodes negative for metastatic carcinoma. INVASIVE BREAST CANCER SUMMARY: Specimen - total breast (including nipple and skin). Procedure - total mastectomy (including nipple and skin). Lymph node sampling - axillary dissection Specimen integrity - single, intact specimen Specimen laterality - left Tumor site - lower inner quadrant Tumor size - 0.5 x 0.3 cm Tumor focality - single focus of invasive carcinoma Macroscopic and Microscopic extent of tumor: Skin - invasive carcinoma does not invade into the dermis or epidermis Nipple - ductal carcinoma does not involve the nipple epidermis. Skeletal muscle - no skeletal muscle present. Ductal carcinoma in situ (DCIS) - no ductal carcinoma in situ is present. Lobular carcinoma in situ (LCIS) - not identified Histologic type of invasive carcinoma - poorly differentiated carcinoma with basaloid features. Histologic Grade (Elena grade): Glandular/tubular differentiation - score 3 Nuclear pleomorphism - score 3 Mitotic count - score 1 Overall grade - 2 (score of 7) Margins: Margins uninvolved by invasive carcinoma. The tumor is 2 cm away from the deep margin. Treatment effect - response to presurgical (neoadjuvant therapy) - In the breast - definite response to presurgical therapy in the invasive carcinoma. In the lymph node - definite response to presurgical therapy in the metastatic carcinoma. See comment. Lymph-Vascular invasion - not identified Dermal lymph-vascular invasion - not identified Lymph nodes: Number of sentinel lymph nodes examined - 0 Total number of lymph nodes examined (sentinel and nonsentinel) - 11 Number of lymph nodes with macrometastases, micrometastases and isolated tumor cells - 0 Distance metastasis - not applicable Additional pathologic findings: - Extensive area of necrosis, histiocytic reaction and hemorrhage (consistent with presurgical neoadjuvant chemotherapy related changes) - Skin lesions, seborrheic keratosis. - Fibrocystic changes with intraductal hyperplasia without atypia. - Microscopic hyalinized fibroadenoma (0.6 x 0.4 cm) - one lymph node with hemangioma (0.1 cm in greatest dimension). Ancillary studies - previously performed on section of tumor ([id number] / [id number]). ER - positive (38% weak to moderate) MD - negative (0%) Her2 nicko - negative (0) Her2 by dual JENNA - not performed Microcalcifications - not identified Clinical history - Please make reference to previous specimen ([id number]) left breast, core biopsy with diagnosis of poorly differentiated ductal carcinoma, basaloid type. PATHOLOGIC STAGE: pT1a(y) pN0 Mx 3) GKS 08/14/2017 Current therapy: 1) Faslodex and anastrozole. Interim history: Most recent brain MRI in late March raise question of regression versus necrosis of one of the lesions. Plan was for repeat MRI in 2 months. However she started developing symptoms again. She was put back on Decadron. Was scheduled for resection of the single brain metastasis on 05/22. After further review with tumor board, bevacizumab was recommended. No subjective change. PMH, medications and allergies personally reviewed by me today. Any changes documented in appropriate section. ROS: Constitutional: No episode of fever, night sweats or shaking chills. Neuro: Denies AYALA. HEENT: No recent change in voice or hearing. Resp: See above. CVS: Denies PND and orthopnea. GI: Denies dysgeusia. Denies symptoms of stomatitis. Denies dysphagia and odynophagia. Denies reflux, n/v, change in bowel habits and abdominal pain. : Denies dysuria or gross hematuria. No symptoms of bladder outlet obstruction. Endo: Denies hot flashes. Denies polyuria and polydipsia. Denies heat and cold intolerance. Musculoskeletal: See above. Derm: Denies rash. Denies jaundice and diffuse pruritis. Heme: Denies unexplained bruising. Psych: Normal mood. PHYSICAL EXAM: Vitals: Blood pressure 122/64, pulse 80, temperature 37 ?C (98.6 ?F), temperature source Oral, weight 68.5 kg (151 lb). Well-appearing and in no acute distress. EYES: Sclerae are anicteric bilaterally. 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 -Patient presented with a neglected breast cancer that was locally advanced and had uncontrollable bleeding. In the interest of starting her treatment urgently, biopsy of the lung masses was deferred. -Post-operatively had 5 mm viable tumor. -No concerning symptoms or exam findings suggesting loss of control systemic disease. -She declined every 6 month denosumab treatment. Plan: -Continue Faslodex and anastrozole. -CTs in 2-3 months. -She will be a candidate for aromatase inhibitor therapy and CD4/6 inhibitor therapy if/when progression. 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 -I discussed the rationale, logistics, potential risks (including ), benefits and alternatives, as well as the personnel involved in the administration of bevacizumab. I answered her questions in detail and she verbalized understanding and agreed with the recommended therapy. Please see the electronic consent document for details of doses and schedule. Plan: -Avastin 10 mg/kg q 2 weeks x4 doses. -Follow up MRI about 4-6 weeks after Avastin. -Hold dex when starts Avastin. Ky Burkett DO CNOVSP Observed: 05/22/2018 Status: COMPLETED Source: [place] 4:00 PM [facility] REPOSITORY Visit (SP) Office (JAYA) ANNA BARRERA ([id number]) 1940 F Date Time Provider Department 05/22/18 4:00 PM KY BURKETT During your visit today, we recorded the following information about you: Temperature Pulse Blood pressure Weight 98.6 degrees 80/minute 122/64 68.5 kg Ky Burkett DO 05/24/2018 1:02 PM Signed Diagnosis: 1) Breast cancer. HPI: Patient is a 77-year-old female whom I initially saw in the hospital for consultation. She was admitted on 01/10/2017 for uncontrolled bleeding from a large breast tumor. A CT of the chest was performed in the emergency room. That study demonstrated a 6.2 x 7.3 x 7.7 cm inhomogeneously vascular mass involving the majority of the left breast along the medial aspect. There was diffuse thickening of the overlying skin observed. There was also evidence of increased markings in the lateral portion of the breast. There were small left axillary lymph nodes noted. Dimensions were not rendered. Significantly, multiple nodules were observed in the right lower lobe. The largest measured 2.6 x 1.5 cm. Increased markings were observed at the lung bases just above the bibasilar atelectasis and/or scarring seen. The mediastinum was observed to be normal as were the hilar regions. Multilevel degenerative changes were observed and thoracic spine. The bleeding was controlled with Gelfoam packing. Patient was seen by general surgery. The patient underwent an ultrasound guided biopsy of the left breast mass on 01/11/2017. 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 COMMENT Immunohistochemistry ([id number]) supports the above diagnosis. 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 Case is reviewed in consultation with Dr. Ibarra of [facility] (complete consultative report viewable in patient?s EMR). ER/MD/Keo3yaj studies are being performed on sections of tumor and the results from this study will be reported separately ([id number]). RESULTS: ANTIBODY / CLONE RESULT E-Cad (ECH-6) positive, rare cells CK8 (77gikhZ38) positive, focal P63 (7JUL/4A4) negative Calponin-1 (YT916P) negative CD56 (123C3.D5) negative Chromo (LK2H10) negative Synapto (polyclonal) negative CK5-6 (D5 AND 1684) positive Ki-67 (30-9) positive, high P53 (DO-7) positive, high Vimentin (V9) positive TTF-1 (8G7G3/1) negative AE1-3 (AE1/AE3/PCK26) positive CD45 (RP2/18) negative MART-1 (A-103) negative CK7 (OV-TL12/30) positive CK20 (KS20.8) noncontributory MORPHOMETRIC ANALYSIS ER (clone 6F11) 17%, weak MD (clone 16/1E2) 0 Her-2Neu (clone CB11) 0-1+ The prognostic test for HER2 is performed on formalin-fixed paraffin embedded tissue. A 3+ (positive) staining pattern is defined as intense, homogeneous, complete, circumferential membranous staining in >10% of contiguous tumor cells. A similar weak (2+) staining pattern is interpreted as equivocal. JENNA follow-up testing is recommended for all equivocal cases. Positivity/negativity for ER/MD is reported if > or < 1% of the tumor cells are immuno- reactive, respectively. The ASCO/CAP criteria is used for scoring. Reference: Journal of Clinical Oncology, 2013; 31:8992-7758 AND 2009; 16:2306-6212. Duration of fixation: 6 Hrs; Sample Adequate: Yes. These assays have not been validated on decalcified tissues. Results should be interpreted with caution given the likelihood of false negativity on decalcified specimens. These tests were developed and their performance characteristics determined by [facility]. They may not have been cleared or approved by the U.S. Food and Drug Administration. The FDA has determined that such clearance or approval is not necessary. 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 Positive for estrogen receptors (favorable prognostic indicator). Negative for progesterone receptors (unfavorable prognostic indicator). Negative for overexpression of GHN4twk. Patient underwent an echocardiogram on 01/11/2017 as well. That study demonstrated normal left ventricular size and systolic function. The estimated ejection fraction was 65%. No regional wall motion abnormalities were noted. There was mild mitral valve prolapse. Trivial mitral valve insufficiency was noted. There was mild tricuspid valve insufficiency with mild focal aortic valve thickening. Right ventricular systolic pressure estimated to be 29 mmHg. The patient declined any further radiographic workup in the hospital until she had definitive proof of breast cancer via the biopsy. Previous therapy: 1) Neoadjuvant ddAC followed by Taxol x4 cycles. 2) Left modified radical mastectomy with axillary lymph node dissection 2017. 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 Changes consistent with treatment effect (presurgical neoadjuvant) therapy both in breast and in the lymph nodes. Multiple skin lesions, consistent with seborrheic keratosis. Eleven out of 11 lymph nodes negative for metastatic carcinoma. INVASIVE BREAST CANCER SUMMARY: Specimen - total breast (including nipple and skin). Procedure - total mastectomy (including nipple and skin). Lymph node sampling - axillary dissection Specimen integrity - single, intact specimen Specimen laterality - left Tumor site - lower inner quadrant Tumor size - 0.5 x 0.3 cm Tumor focality - single focus of invasive carcinoma Macroscopic and Microscopic extent of tumor: Skin - invasive carcinoma does not invade into the dermis or epidermis Nipple - ductal carcinoma does not involve the nipple epidermis. Skeletal muscle - no skeletal muscle present. Ductal carcinoma in situ (DCIS) - no ductal carcinoma in situ is present. Lobular carcinoma in situ (LCIS) - not identified Histologic type of invasive carcinoma - poorly differentiated carcinoma with basaloid features. Histologic Grade (Elena grade): Glandular/tubular differentiation - score 3 Nuclear pleomorphism - score 3 Mitotic count - score 1 Overall grade - 2 (score of 7) Margins: Margins uninvolved by invasive carcinoma. The tumor is 2 cm away from the deep margin. Treatment effect - response to presurgical (neoadjuvant therapy) - In the breast - definite response to presurgical therapy in the invasive carcinoma. In the lymph node - definite response to presurgical therapy in the metastatic carcinoma. See comment. Lymph-Vascular invasion - not identified Dermal lymph-vascular invasion - not identified Lymph nodes: Number of sentinel lymph nodes examined - 0 Total number of lymph nodes examined (sentinel and nonsentinel) - 11 Number of lymph nodes with macrometastases, micrometastases and isolated tumor cells - 0 Distance metastasis - not applicable Additional pathologic findings: - Extensive area of necrosis, histiocytic reaction and hemorrhage (consistent with presurgical neoadjuvant chemotherapy related changes) - Skin lesions, seborrheic keratosis. - Fibrocystic changes with intraductal hyperplasia without atypia. - Microscopic hyalinized fibroadenoma (0.6 x 0.4 cm) - one lymph node with hemangioma (0.1 cm in greatest dimension). Ancillary studies - previously performed on section of tumor ([id number] / [id number]). ER - positive (38% weak to moderate) MD - negative (0%) Her2 nicko - negative (0) Her2 by dual JENNA - not performed Microcalcifications - not identified Clinical history - Please make reference to previous specimen ([id number]) left breast, core biopsy with diagnosis of poorly differentiated ductal carcinoma, basaloid type. PATHOLOGIC STAGE: pT1a(y) pN0 Mx 3) GKS 08/14/2017 Current therapy: 1) Faslodex and anastrozole. Interim history: Most recent brain MRI in late March raise question of regression versus necrosis of one of the lesions. Plan was for repeat MRI in 2 months. However she started developing symptoms again. She was put back on Decadron. Was scheduled for resection of the single brain metastasis on 05/22. After further review with tumor board, bevacizumab was recommended. No subjective change. PMH, medications and allergies personally reviewed by me today. Any changes documented in appropriate section. ROS: Constitutional: No episode of fever, night sweats or shaking chills. Neuro: Denies AYALA. HEENT: No recent change in voice or hearing. Resp: See above. CVS: Denies PND and orthopnea. GI: Denies dysgeusia. Denies symptoms of stomatitis. Denies dysphagia and odynophagia. Denies reflux, n/v, change in bowel habits and abdominal pain. : Denies dysuria or gross hematuria. No symptoms of bladder outlet obstruction. Endo: Denies hot flashes. Denies polyuria and polydipsia. Denies heat and cold intolerance. Musculoskeletal: See above. Derm: Denies rash. Denies jaundice and diffuse pruritis. Heme: Denies unexplained bruising. Psych: Normal mood. PHYSICAL EXAM: Vitals: Blood pressure 122/64, pulse 80, temperature 37 ?C (98.6 ?F), temperature source Oral, weight 68.5 kg (151 lb). Well-appearing and in no acute distress. EYES: Sclerae are anicteric bilaterally. 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 -Patient presented with a neglected breast cancer that was locally advanced and had uncontrollable bleeding. In the interest of starting her treatment urgently, biopsy of the lung masses was deferred. -Post-operatively had 5 mm viable tumor. -No concerning symptoms or exam findings suggesting loss of control systemic disease. -She declined every 6 month denosumab treatment. Plan: -Continue Faslodex and anastrozole. -CTs in 2-3 months. -She will be a candidate for aromatase inhibitor therapy and CD4/6 inhibitor therapy if/when progression. 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 -I discussed the rationale, logistics, potential risks (including ), benefits and alternatives, as well as the personnel involved in the administration of bevacizumab. I answered her questions in detail and she verbalized understanding and agreed with the recommended therapy. Please see the electronic consent document for details of doses and schedule. Plan: -Avastin 10 mg/kg q 2 weeks x4 doses. -Follow up MRI about 4-6 weeks after Avastin. -Hold dex when starts Avastin. 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 FOR NAUSEADisp: 40 tabletRfl: 0 Follow-up and Disposition History Recorded Prescriptions as of 05/22/2018 Sig: ONDANSETRON HCL 8 MG TABLET Take 1 tablet by mouth every * LEVOTHYROXINE 100 MCG TABLET Take 100 mcg by mouth once da* DEXAMETHASONE 2 MG TABLET Take 2mg every morning with b* OMEPRAZOLE 20 MG CAPSULE,MAMADOU* Take 2 capsules by mouth once* ANASTROZOLE 1 MG TABLET Take 1 tablet by mouth once d* FULVESTRANT 250 MG/5 ML INTRA* Inject 250 mg intramuscularly* LORAZEPAM 0.5 MG TABLET Take 1 tablet by mouth three * ACETAMINOPHEN 325 MG TABLET Take 500 mg by mouth every 6 * METOPROLOL TARTRATE 50 MG TAB* 50 mg twice daily. Medication notes this encounter DEXAMETHASONE 4 MG TABLET >> Latoya Simeon MA 05/22/2018 3:54 PM >> LATOYA SIMEON MA May 22, 2018 3:54 PM No longer taking this strength. ONDANSETRON 4 MG DISINTEGRATING TABLET >> Latoya Simeon MA 05/22/2018 3:56 PM >> LATOYA SIMEON MA May 22, 2018 3:56 PM No longer taking this strength. LEVOTHYROXINE 125 MCG TABLET >> Latoya Simeon MA 05/22/2018 3:56 PM >> LATOYA SIMEON MA May 22, 2018 3:56 PM No longer taking this strength. Problem List As Of Date 05/22/2018 Noted Resolved Breast CA (HCC) [C50.919] INVALID FOR*03/21/2017 More... Malignant neoplasm of overlapping sites of left*INVALID FOR* 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 (HC*INVALID FOR* Brain metastases (HCC) [C79.31] INVALID FOR* Brain metastasis (HCC) [C79.31] INVALID FOR* More... Radiation therapy induced brain necrosis [I67.8*INVALID FOR* Encounter Status:Closed by KY BURKETT DO on 05/24/18 PROGRESS Observed: 05/17/2018 Status: COMPLETED Source: [place] 1:43 PM [facility] REPOSITORY HNO ID: [id number] Author: Navdeep Garcia Service: (none) Author Type: Physician Type: Progress Notes Filed: 05/17/2018 3:31 PM Note Text: FOLLOW-UP PROGRESS NOTE Purpose of Visit: Ongoing patient management. S/p GK for brain tumor in 08/06 Vital Signs: BP 148/73 (BP Site: Right Arm, BP Position: Sitting, BP Cuff Size: Regular Adult) Pulse 81 Temp 36.4 ?C (97.5 ?F) (Oral) Resp 18 Wt 66.9 kg (147 lb 8 oz) SpO2 97% BMI 25.92 kg/m? Medications: Current Outpatient Prescriptions: dexamethasone (DECADRON) 4 mg tablet Take 1 tablet by mouth twice daily with meals. Disp: 60 tablet Rfl: 0 omeprazole (PRILOSEC) 20 mg capsule Take 2 capsules by mouth once daily. Disp: 60 capsule Rfl: 2 ondansetron (ZOFRAN) 8 mg tablet Take 1 tablet by mouth every 8 hours as needed. FOR NAUSEA Disp: 40 tablet Rfl: 0 anastrozole (ARIMIDEX) 1 mg tablet Take 1 tablet by mouth once daily. Disp: 90 tablet Rfl: 3 fulvestrant (FASLODEX) 250 mg/5 mL injection Inject 250 mg intramuscularly q 4 WEEKS. Disp: Rfl: ondansetron orally disintegrating (ZOFRAN ODT) 4 mg disintegrating tablet Take 4 mg by mouth three times daily as needed. Disp: Rfl: 0 levothyroxine (SYNTHROID) 125 mcg tablet 112 mcg once daily. Disp: Rfl: acetaminophen (TYLENOL) 325 mg tablet Take 500 mg by mouth every 6 hours as needed. Disp: Rfl: metoprolol tartrate, short acting, (LOPRESSOR) 50 mg tablet 50 mg twice daily. Disp: Rfl: LORazepam (ATIVAN) 0.5 mg tab Take 1 tablet by mouth three times daily as needed for up to 30 days. Disp: 45 tablet Rfl: 0 No current facility-administered medications for this visit. Subjective: Since last visit she has had complaints of worsening of weakness that improved again after start of steroid. She was diagnosed with NSCLC and brain metastasis and had treatment as above. Based upon our prior discussion since she was symptomatic she was tentatively scheduled for surgery next week and is here for a new MRI with functional study plus perfusion images. She is on 4mg BID of steroid. Neurological Exam: No new findings awake alert, Ox3 PERRL, EOMI FS, TM, facial sensation intact No drift BUE: 5/5, proximal and distal BLE: 5/5, proximal and distal SILT Gait normal Other Physical Findings: No interval change New Imaging Studies: Perfusion MRI shows negative perfusion and enhancement is better, although lesion might be larger New Pathology Results: None New Laboratory Studies: None Assessment: Left frontal lesion is larger with faint enhancement and negative perfusion. I will present her case in our multidisciplinary tumor board. 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 If not conclusive or tumor will proceed with surgery as scheduled for next week. I will taper steroid to 4mg daily and if plan is Avastin will communicate with Dr. Burkett to start Avastin. Plan: Discussion in tumor board. Taper steroid Navdeep Garcia MD MRI 3D POST PROCESSING Observed: 05/17/2018 Status: F Source: [place] 12:48 PM [facility] REPOSITORY * * *Final Report* * * DATE OF EXAM: May 17 2018 12:48PM [facility] [id number] - MRI 3D POST PROCESSING / PROCEDURE REASON: multiple diagnoses * * * * Physician Interpretation * * * * EXAMINATION: MRI BRAIN FUNCT W PHYS WO IVCON, MRI BRAIN WO/W IVCON, MRI 3D POST PROCESSING HISTORY: Breast cancer with intracranial metastasis. Radiation necrosis. HANDEDNESS: Right. [place] HANDEDNESS SCORE: 100. COMPARISON: MRI brain 04/16/2018. CLINICAL TESTING: Ramona? EEG? RUBEN? Clinical? . TECHNIQUE: MRI mass protocol without and with contrast. Perfusion images were also acquired. MPRAGE using 3T scanner followed by four functional paradigms: motor (finger tapping) and language (rhyming, covert word generation, and passive listening). The patient underwent preprocedural teaching, and postprocedural interview. Continuous monitoring of responses was performed throughout the tasks. Imaging data was then transferred to a separate postprocessing workstation for 3-D structural information, analysis of functional data, and correlation of functional data with surface landmarks under physician supervision. No immediate complications were encountered. Physician monitoring Study: Dr Jerry Fonseca. SCAN QUALITY Overall: Instruction delivery, patient attitude, cooperation. Patient movement: Mild motion in motor, word generation and listening paradigms.. Behavioral data evaluation: Motor: Excellent Rhyming: Unable to perform rhyming task due to near vision . Word Gen: Not evaluated. Listening: Fair with 50% correct responses . FINDINGS (STRUCTURAL): Acute Change: There is no evidence of restricted diffusion to suggest an acute infarct. Hemorrhage: Susceptibility artifact in the left precentral gyrus suggests prior hemorrhage. Mass Lesion/ Mass Effect: Again noted is a 2 x 1.4 x 1.9 cm predominantly peripherally enhancing lesion in the left periventricular gyrus. Compared to the prior study, the lesion has minimally enlarged but with decreased enhancement. Perilesional T2/FLAIR hyperintensity has slightly enlarged along the posterior margin. There is no associated cerebral blood volume elevation on perfusion images. No additional intracranial lesions. No extra-axial fluid collection. No abnormal leptomeningeal enhancement is noted following contrast administration. ` Chronic Change: Scattered punctate foci of increased T2 and FLAIR signal in the supratentorial white matter are grossly stable from the prior study, which may represent minimal chronic microvascular ischemia. Parenchyma: No significant volume loss for age. Ventricles: The lateral and third ventricles are mildly prominent but this likely relates to central volume loss. Skull Base: Hypothalamic and pituitary region are grossly normal. Craniocervical junction is normal. No significant marrow replacement process. Vasculature: Major intracranial arterial structures, and dural venous sinuses show typical flow void, suggesting patency by spin echo criteria. Other: The visualized paranasal sinuses and mastoid air cells are clear. The orbits and extracranial soft tissues are unremarkable. FINDINGS (FUNCTIONAL): Motor Task: (Z score = -4) Task performance was excellent, and there is robust activation of the expected locations of the finger motor regions, in addition to the supplementary motor areas, and to a lesser extent the bilateral cerebella, all normally located. There is less activity in the left finger motor region compared to the right side, likely secondary to the disease process. The left finger motor region is immediately posterior and inferior to the left precentral gyrus lesion. Rhyming Task: (Z score=-4) The rhyming task is not performed due to patient's vision. Covert Word Generation: (Z score= 4) There is motion degradation of the sequence, which confounds accurate lateralization. Within these limits, there is bilateral activation in the Broca's area without clear localization. Passive Listening: (Z score= -4) There is motion degradation of this sequence, and within these limits there is bilateral language activation, predominantly along the superior temporal lobes and Broca's area. Activation in the Broca's area is more prominent on the left side. IMPRESSION: Redemonstration of left precentral gyrus lesion which has minimally enlarged from the prior study with slightly increased perilesional T2/FLAIR hyperintensity, and decreased enhancement. No corresponding cerebral blood volume elevation. The constellation of findings favors radiation necrosis. Motion degraded functional language and motor paradigms, without definite language lateralization. There is decreased left finger motor region activity, likely secondary to the disease process. REFERENCES Localization of brain parenchymal neural activation by blood oxygen level dependent (BOLD) functional MR imaging is necessarily limited, since the technique involves visualization of changes in blood flow (particularly venous flow) which may be spatially removed from the site of actual neural activation. The accuracy of localization is in the range of 5-10 mm. Kober et al. NeuroImage [id number],2001 Inoue et al. NeuroImage 10:[id number], 1999 Pramodkin et al. Am J Neuroradiol 18:0377-4250, 1997 Kitchen Helper: BUCKY Transcribe Date/Time: May 17 2018 1:35P Dictated by : ÁNGEL BONILLA MD This examination was interpreted and the report reviewed and electronically signed by: JERRY FONSECA MD on May 17 2018 4:16PM EST [id number] MRI BRAIN WO/W Observed: 05/17/2018 Status: F Source: [place] IVCON 12:48 PM [facility] REPOSITORY * * *Final Report* * * DATE OF EXAM: May 17 2018 12:48PM [facility] 0295 - MRI BRAIN WO/W IVCON / PROCEDURE REASON: multiple diagnoses * * * * Physician Interpretation * * * * EXAMINATION: MRI BRAIN FUNCT W PHYS WO IVCON, MRI BRAIN WO/W IVCON, MRI 3D POST PROCESSING HISTORY: Breast cancer with intracranial metastasis. Radiation necrosis. HANDEDNESS: Right. [place] HANDEDNESS SCORE: 100. COMPARISON: MRI brain 04/16/2018. CLINICAL TESTING: Ramona? EEG? RUBEN? Clinical? . TECHNIQUE: MRI mass protocol without and with contrast. Perfusion images were also acquired. MPRAGE using 3T scanner followed by four functional paradigms: motor (finger tapping) and language (rhyming, covert word generation, and passive listening). The patient underwent preprocedural teaching, and postprocedural interview. Continuous monitoring of responses was performed throughout the tasks. Imaging data was then transferred to a separate postprocessing workstation for 3-D structural information, analysis of functional data, and correlation of functional data with surface landmarks under physician supervision. No immediate complications were encountered. Physician monitoring Study: Dr Jerry Fonseca. SCAN QUALITY Overall: Instruction delivery, patient attitude, cooperation. Patient movement: Mild motion in motor, word generation and listening paradigms.. Behavioral data evaluation: Motor: Excellent Rhyming: Unable to perform rhyming task due to near vision . Word Gen: Not evaluated. Listening: Fair with 50% correct responses . FINDINGS (STRUCTURAL): Acute Change: There is no evidence of restricted diffusion to suggest an acute infarct. Hemorrhage: Susceptibility artifact in the left precentral gyrus suggests prior hemorrhage. Mass Lesion/ Mass Effect: Again noted is a 2 x 1.4 x 1.9 cm predominantly peripherally enhancing lesion in the left periventricular gyrus. Compared to the prior study, the lesion has minimally enlarged but with decreased enhancement. Perilesional T2/FLAIR hyperintensity has slightly enlarged along the posterior margin. There is no associated cerebral blood volume elevation on perfusion images. No additional intracranial lesions. No extra-axial fluid collection. No abnormal leptomeningeal enhancement is noted following contrast administration. ` Chronic Change: Scattered punctate foci of increased T2 and FLAIR signal in the supratentorial white matter are grossly stable from the prior study, which may represent minimal chronic microvascular ischemia. Parenchyma: No significant volume loss for age. Ventricles: The lateral and third ventricles are mildly prominent but this likely relates to central volume loss. Skull Base: Hypothalamic and pituitary region are grossly normal. Craniocervical junction is normal. No significant marrow replacement process. Vasculature: Major intracranial arterial structures, and dural venous sinuses show typical flow void, suggesting patency by spin echo criteria. Other: The visualized paranasal sinuses and mastoid air cells are clear. The orbits and extracranial soft tissues are unremarkable. FINDINGS (FUNCTIONAL): Motor Task: (Z score = -4) Task performance was excellent, and there is robust activation of the expected locations of the finger motor regions, in addition to the supplementary motor areas, and to a lesser extent the bilateral cerebella, all normally located. There is less activity in the left finger motor region compared to the right side, likely secondary to the disease process. The left finger motor region is immediately posterior and inferior to the left precentral gyrus lesion. Rhyming Task: (Z score=-4) The rhyming task is not performed due to patient's vision. Covert Word Generation: (Z score= 4) There is motion degradation of the sequence, which confounds accurate lateralization. Within these limits, there is bilateral activation in the Broca's area without clear localization. Passive Listening: (Z score= -4) There is motion degradation of this sequence, and within these limits there is bilateral language activation, predominantly along the superior temporal lobes and Broca's area. Activation in the Broca's area is more prominent on the left side. IMPRESSION: Redemonstration of left precentral gyrus lesion which has minimally enlarged from the prior study with slightly increased perilesional T2/FLAIR hyperintensity, and decreased enhancement. No corresponding cerebral blood volume elevation. The constellation of findings favors radiation necrosis. Motion degraded functional language and motor paradigms, without definite language lateralization. There is decreased left finger motor region activity, likely secondary to the disease process. REFERENCES Localization of brain parenchymal neural activation by blood oxygen level dependent (BOLD) functional MR imaging is necessarily limited, since the technique involves visualization of changes in blood flow (particularly venous flow) which may be spatially removed from the site of actual neural activation. The accuracy of localization is in the range of 5-10 mm. Kober et al. NeuroImage [id number],2001 Inoue et al. NeuroImage 10:[id number], 1999 Pramodkin et al. Am J Neuroradiol 18:2643-9853, 1997 Kitchen Helper: BUCKY Transcribe Date/Time: May 17 2018 1:35P Dictated by : ÁNGEL BONILLA MD This examination was interpreted and the report reviewed and electronically signed by: JERRY FONSECA MD on May 17 2018 4:16PM EST [id number] MRI BRAIN FUNCT W Observed: 05/17/2018 Status: F Source: [place] PHYS WO IVCON 12:48 PM [facility] REPOSITORY * * *Final Report* * * DATE OF EXAM: May 17 2018 12:48PM [facility] 0281 - MRI BRAIN FUNCT W PHYS WO IVCON / PROCEDURE REASON: multiple diagnoses * * * * Physician Interpretation * * * * EXAMINATION: MRI BRAIN FUNCT W PHYS WO IVCON, MRI BRAIN WO/W IVCON, MRI 3D POST PROCESSING HISTORY: Breast cancer with intracranial metastasis. Radiation necrosis. HANDEDNESS: Right. [place] HANDEDNESS SCORE: 100. COMPARISON: MRI brain 04/16/2018. CLINICAL TESTING: Ramona? EEG? RUBEN? Clinical? . TECHNIQUE: MRI mass protocol without and with contrast. Perfusion images were also acquired. MPRAGE using 3T scanner followed by four functional paradigms: motor (finger tapping) and language (rhyming, covert word generation, and passive listening). The patient underwent preprocedural teaching, and postprocedural interview. Continuous monitoring of responses was performed throughout the tasks. Imaging data was then transferred to a separate postprocessing workstation for 3-D structural information, analysis of functional data, and correlation of functional data with surface landmarks under physician supervision. No immediate complications were encountered. Physician monitoring Study: Dr Jerry Fonseca. SCAN QUALITY Overall: Instruction delivery, patient attitude, cooperation. Patient movement: Mild motion in motor, word generation and listening paradigms.. Behavioral data evaluation: Motor: Excellent Rhyming: Unable to perform rhyming task due to near vision . Word Gen: Not evaluated. Listening: Fair with 50% correct responses . FINDINGS (STRUCTURAL): Acute Change: There is no evidence of restricted diffusion to suggest an acute infarct. Hemorrhage: Susceptibility artifact in the left precentral gyrus suggests prior hemorrhage. Mass Lesion/ Mass Effect: Again noted is a 2 x 1.4 x 1.9 cm predominantly peripherally enhancing lesion in the left periventricular gyrus. Compared to the prior study, the lesion has minimally enlarged but with decreased enhancement. Perilesional T2/FLAIR hyperintensity has slightly enlarged along the posterior margin. There is no associated cerebral blood volume elevation on perfusion images. No additional intracranial lesions. No extra-axial fluid collection. No abnormal leptomeningeal enhancement is noted following contrast administration. ` Chronic Change: Scattered punctate foci of increased T2 and FLAIR signal in the supratentorial white matter are grossly stable from the prior study, which may represent minimal chronic microvascular ischemia. Parenchyma: No significant volume loss for age. Ventricles: The lateral and third ventricles are mildly prominent but this likely relates to central volume loss. Skull Base: Hypothalamic and pituitary region are grossly normal. Craniocervical junction is normal. No significant marrow replacement process. Vasculature: Major intracranial arterial structures, and dural venous sinuses show typical flow void, suggesting patency by spin echo criteria. Other: The visualized paranasal sinuses and mastoid air cells are clear. The orbits and extracranial soft tissues are unremarkable. FINDINGS (FUNCTIONAL): Motor Task: (Z score = -4) Task performance was excellent, and there is robust activation of the expected locations of the finger motor regions, in addition to the supplementary motor areas, and to a lesser extent the bilateral cerebella, all normally located. There is less activity in the left finger motor region compared to the right side, likely secondary to the disease process. The left finger motor region is immediately posterior and inferior to the left precentral gyrus lesion. Rhyming Task: (Z score=-4) The rhyming task is not performed due to patient's vision. Covert Word Generation: (Z score= 4) There is motion degradation of the sequence, which confounds accurate lateralization. Within these limits, there is bilateral activation in the Broca's area without clear localization. Passive Listening: (Z score= -4) There is motion degradation of this sequence, and within these limits there is bilateral language activation, predominantly along the superior temporal lobes and Broca's area. Activation in the Broca's area is more prominent on the left side. IMPRESSION: Redemonstration of left precentral gyrus lesion which has minimally enlarged from the prior study with slightly increased perilesional T2/FLAIR hyperintensity, and decreased enhancement. No corresponding cerebral blood volume elevation. The constellation of findings favors radiation necrosis. Motion degraded functional language and motor paradigms, without definite language lateralization. There is decreased left finger motor region activity, likely secondary to the disease process. REFERENCES Localization of brain parenchymal neural activation by blood oxygen level dependent (BOLD) functional MR imaging is necessarily limited, since the technique involves visualization of changes in blood flow (particularly venous flow) which may be spatially removed from the site of actual neural activation. The accuracy of localization is in the range of 5-10 mm. Kober et al. NeuroImage 14:[id number],2001 Inoue et al. NeuroImage 10:738-748, 1998 Yetkin et al. Am J Neuroradiol 18:6612-2853, 1996 Kitchen Helper: BUCKY Transcribe Date/Time: May 17 2018 1:35P Dictated by : ÁNGEL BONILLA MD This examination was interpreted and the report reviewed and electronically signed by: JERRY FONSECA MD on May 17 2018 4:16PM EST [id number] PROGRESS Observed: 05/17/2018 Status: COMPLETED Source: [place] 12:11 PM [facility] REPOSITORY HNO ID: [id number] Author: Srinivas (Abbey) Abbey Swain Service: (none) Author Type: Darklight Inspector Type: Progress Notes Filed: 05/17/2018 12:13 PM Note Text: Radiology Service Progress Note PATIENT NAME: Anna Barrera DATE OF SERVICE: May 17, 2018 TIME: 12:12 PM PATIENT IDENTITY VERIFICATION COMPLETED USING TWO (2) METHODS: Patient confirmed name verbally and Date of . PATIENT GENDER DATA: Female. status: : No status: NO. PATIENT RELEVANT IMPLANT DATA REVIEWED: Not Applicable RADIOLOGY DEPARTMENT: MR; Exam(s) Completed: Head: Routine Brain with Perfusion Functional PERIPHERAL IV DATA: Site assessment: Clean,Dry and Intact, Site disposition Discontinued SIGNED BY: Abbey Moreno May 17, 2018 12:12 PM CNOV Observed: 05/17/2018 Status: COMPLETED Source: [place] 11:40 AM [facility] REPOSITORY Office Visit (NSCAMN) ANNA BARRERA ([id number]) 1940 F Date Time Provider Department 05/17/18 11:40 AM NAVDEEP GARCIA NSCAMN During your visit today, we recorded the following information about you: Temperature Pulse Respiration Blood pressure 97.5 degrees 81/minute 18/minute 148/73 Weight 66.9 kg Anais Begum LPN, LPN 05/17/2018 1:39 PM Signed Additional intake questions: Has the patient had nausea, vomiting, diarrhea, constipation, fatigue for > 1 week? None of the above Does the patient have a decreased appetite? No Does patient want to see a Induction Furnace Operator? No (yes to any of above refer patient to schedulers for dietitian appointment) ) Does patient have any new or increased numbness or tingling of extremities? No Is patient interested in fertility information? No Does patient need any prescription refills? No Electronically Signed By: SHANNON Venegas MD 05/17/2018 3:31 PM Signed FOLLOW-UP PROGRESS NOTE Purpose of Visit: Ongoing patient management. S/p GK for brain tumor in 08/06 Vital Signs: BP 148/73 (BP Site: Right Arm, BP Position: Sitting, BP Cuff Size: Regular Adult) Pulse 81 Temp 36.4 ?C (97.5 ?F) (Oral) Resp 18 Wt 66.9 kg (147 lb 8 oz) SpO2 97% BMI 25.92 kg/m? Medications: Current Outpatient Prescriptions: dexamethasone (DECADRON) 4 mg tablet Take 1 tablet by mouth twice daily with meals. Disp: 60 tablet Rfl: 0 omeprazole (PRILOSEC) 20 mg capsule Take 2 capsules by mouth once daily. Disp: 60 capsule Rfl: 2 ondansetron (ZOFRAN) 8 mg tablet Take 1 tablet by mouth every 8 hours as needed. FOR NAUSEA Disp: 40 tablet Rfl: 0 anastrozole (ARIMIDEX) 1 mg tablet Take 1 tablet by mouth once daily. Disp: 90 tablet Rfl: 3 fulvestrant (FASLODEX) 250 mg/5 mL injection Inject 250 mg intramuscularly q 4 WEEKS. Disp: Rfl: ondansetron orally disintegrating (ZOFRAN ODT) 4 mg disintegrating tablet Take 4 mg by mouth three times daily as needed. Disp: Rfl: 0 levothyroxine (SYNTHROID) 125 mcg tablet 112 mcg once daily. Disp: Rfl: acetaminophen (TYLENOL) 325 mg tablet Take 500 mg by mouth every 6 hours as needed. Disp: Rfl: metoprolol tartrate, short acting, (LOPRESSOR) 50 mg tablet 50 mg twice daily. Disp: Rfl: LORazepam (ATIVAN) 0.5 mg tab Take 1 tablet by mouth three times daily as needed for up to 30 days. Disp: 45 tablet Rfl: 0 No current facility-administered medications for this visit. Subjective: Since last visit she has had complaints of worsening of weakness that improved again after start of steroid. She was diagnosed with NSCLC and brain metastasis and had treatment as above. Based upon our prior discussion since she was symptomatic she was tentatively scheduled for surgery next week and is here for a new MRI with functional study plus perfusion images. She is on 4mg BID of steroid. Neurological Exam: No new findings awake alert, Ox3 PERRL, EOMI FS, TM, facial sensation intact No drift BUE: 5/5, proximal and distal BLE: 5/5, proximal and distal SILT Gait normal Other Physical Findings: No interval change New Imaging Studies: Perfusion MRI shows negative perfusion and enhancement is better, although lesion might be larger New Pathology Results: None New Laboratory Studies: None Assessment: Left frontal lesion is larger with faint enhancement and negative perfusion. I will present her case in our multidisciplinary tumor board. 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 If not conclusive or tumor will proceed with surgery as scheduled for next week. I will taper steroid to 4mg daily and if plan is Avastin will communicate with Dr. Burkett to start Avastin. Plan: Discussion in tumor board. Taper steroid Navdeep Garcia MD Referring Provider: NAVDEEP GARCIA [[id number]] Allergies As of Date: 05/17/2018 Noted Allergy Reaction ALCOHOL, UNSPECIFIED 01/31/2017 5 - Intolerance Comments: Recovering alcoholic TETRACYCLINE 01/31/2017 14 - Other: See Comments Comments: Thrush in mouth PHENERGAN (PROMETHAZINE HCL) 09/18/2017 1 - Mental Status Change Date Reviewed: 05/17/2018 Reviewed by: Anais Begum LPN - Fully Assessed Reason for Visit: Established Patient [175] Primary Visit Diagnosis:Brain metastases (HCC) [C79.31] Prescriptions as of 05/17/2018 Sig: DEXAMETHASONE 4 MG TABLET Take 1 tablet by mouth twice * OMEPRAZOLE 20 MG CAPSULE,MAMADOU* Take 2 capsules by mouth once* ONDANSETRON HCL 8 MG TABLET Take 1 tablet by mouth every * ANASTROZOLE 1 MG TABLET Take 1 tablet by mouth once d* FULVESTRANT 250 MG/5 ML INTRA* Inject 250 mg intramuscularly* ONDANSETRON 4 MG DISINTEGRATI* Take 4 mg by mouth three time* LEVOTHYROXINE 125 MCG TABLET 112 mcg once daily. ACETAMINOPHEN 325 MG TABLET Take 500 mg by mouth every 6 * METOPROLOL TARTRATE 50 MG TAB* 50 mg twice daily. LORAZEPAM 0.5 MG TABLET Take 1 tablet by mouth three * Problem List As Of Date 05/17/2018 Noted Resolved Breast CA (HCC) [C50.919] INVALID FOR*03/21/2017 More... Malignant neoplasm of overlapping sites of left*INVALID FOR* 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 (HC*INVALID FOR* Brain metastases (HCC) [C79.31] INVALID FOR* Brain metastasis (HCC) [C79.31] INVALID FOR* More... Visit Notes: >> Anais Begum LPN [facility] May 17, 2018 1:38 PM Status: Signed Additional intake questions: Has the patient had nausea, vomiting, diarrhea, constipation, fatigue for > 1 week? None of the above Does the patient have a decreased appetite? No Does patient want to see a Induction Furnace Operator? No (yes to any of above refer patient to schedulers for dietitian appointment) ) Does patient have any new or increased numbness or tingling of extremities? No Is patient interested in fertility information? No Does patient need any prescription refills? No Electronically Signed By: Anais Begum LPN Encounter Status:Closed by NAVDEEP GARCIA MD on 05/17/18 PROGRESS Observed: 05/17/2018 Status: COMPLETED Source: [place] 10:43 AM [facility] [place] REPOSITORY [facility] ID: [id number] Author: Juan EstradaRn) JOSÉ MIGUEL Hill Service: (none) Author Type: Registered Nurse Type: Progress Notes Filed: 05/17/2018 10:54 AM Note Text: Radiology Service Progress Note PATIENT NAME: Anna Barrera DATE OF SERVICE: May 17, 2018 TIME: 10:43 AM PATIENT WEIGHT: 148 LBS PATIENT IDENTITY VERIFICATION COMPLETED USING TWO (2) METHODS: Patient confirmed name verbally and ID band matches.. PATIENT GENDER DATA: Female. status: : No status: NO. CONTRAST INDUCED NEPHROPATHY RISK FACTORS: Patient age > 60 years CREATININE: Creatinine Date Value Ref Range Status 05/15/2018 0.64 0.58 - 0.96 mg/dL Final 04/16/2018 0.85 0.58 - 0.96 mg/dL Final 07/05/2017 0.57 (L) 0.58 - 0.96 mg/dL Final Creatinine, Whole Blood (iSTAT) Date Value Ref Range Status 11/27/2017 0.60 (L) 0.70 - 1.40 mg/dL Final 07/26/2017 0.70 0.70 - 1.40 mg/dL Final Creatinine (POCT) Date Value Ref Range Status 01/04/2018 0.60 (A) 0.7 - 1.4 mg/dL Final 10/05/2017 0.90 0.7 - 1.4 mg/dL Final eGFR-All Other Races Date Value Ref Range Status 05/15/2018 >60 . Final Comment: eGFR (Estimated GFR) Units of measure: mL/min/1.73 meters squared eGFR is derived from the reexpressed MDRD Study equation using the following parameters: serum creatinine, age, gender and race. The creatinine assay has been calibrated to be traceable to IDMS. An eGFR <60 mL/min/1.73m2 for >3 months is consistent with chronic kidney disease. Refer to KDOQI guidelines for clinical interpretation. In patients with unstable renal function, e.g. those with acute kidney injury, the eGFR may not accurately reflect actual GFR. eGFR- Date Value Ref Range Status 05/15/2018 >60 Final P.O.C.T. RESULTS: N/A May 17, 2018 TREATMENT: No Hydration needed. ALLERGIES: Reviewed and unchanged CONTRAST ALLERGY: NO. IV SITE: Ambulatory: A peripheral IV was started in the Right antecubital site with a Angio cath: 24 gauge. and A Saline lock was inserted per protocol IV SITE APPEARANCE: Clean,Dry and Intact SIGNED BY: Juan Hill RN May 17, 2018 10:43 AM PROGRESS Observed: 05/15/2018 Status: COMPLETED Source: [place] 11:31 AM [facility] REPOSITORY HNO ID: [id number] Author: Ky Burkett Service: (none) Author Type: Physician Type: Progress Notes Filed: 05/15/2018 1:30 PM Note Text: Diagnosis: 1) Breast cancer. HPI: Patient is a 77-year-old female whom I initially saw in the hospital for consultation. She was admitted on 01/10/2017 for uncontrolled bleeding from a large breast tumor. A CT of the chest was performed in the emergency room. That study demonstrated a 6.2 x 7.3 x 7.7 cm inhomogeneously vascular mass involving the majority of the left breast along the medial aspect. There was diffuse thickening of the overlying skin observed. There was also evidence of increased markings in the lateral portion of the breast. There were small left axillary lymph nodes noted. Dimensions were not rendered. Significantly, multiple nodules were observed in the right lower lobe. The largest measured 2.6 x 1.5 cm. Increased markings were observed at the lung bases just above the bibasilar atelectasis and/or scarring seen. The mediastinum was observed to be normal as were the hilar regions. Multilevel degenerative changes were observed and thoracic spine. The bleeding was controlled with Gelfoam packing. Patient was seen by general surgery. The patient underwent an ultrasound guided biopsy of the left breast mass on 01/11/2017. 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 COMMENT Immunohistochemistry ([id number]) supports the above diagnosis. 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 Case is reviewed in consultation with Dr. Ibarra of [facility] (complete consultative report viewable in patient?s EMR). ER/MD/Qfo8wbu studies are being performed on sections of tumor and the results from this study will be reported separately ([id number]). RESULTS: ANTIBODY / CLONE RESULT E-Cad (ECH-6) positive, rare cells CK8 (37trunR60) positive, focal P63 (7JUL/4A4) negative Calponin-1 (UV649G) negative CD56 (123C3.D5) negative Chromo (LK2H10) negative Synapto (polyclonal) negative CK5-6 (D5 AND 1684) positive Ki-67 (30-9) positive, high P53 (DO-7) positive, high Vimentin (V9) positive TTF-1 (8G7G3/1) negative AE1-3 (AE1/AE3/PCK26) positive CD45 (RP2/18) negative MART-1 (A-103) negative CK7 (OV-TL12/30) positive CK20 (KS20.8) noncontributory MORPHOMETRIC ANALYSIS ER (clone 6F11) 17%, weak MD (clone 16/1E2) 0 Her-2Neu (clone CB11) 0-1+ The prognostic test for HER2 is performed on formalin-fixed paraffin embedded tissue. A 3+ (positive) staining pattern is defined as intense, homogeneous, complete, circumferential membranous staining in >10% of contiguous tumor cells. A similar weak (2+) staining pattern is interpreted as equivocal. JENNA follow-up testing is recommended for all equivocal cases. Positivity/negativity for ER/MD is reported if > or < 1% of the tumor cells are immuno- reactive, respectively. The ASCO/CAP criteria is used for scoring. Reference: Journal of Clinical Oncology, 2013; 31:6046-9377 AND 2009; 16:1470-9982. Duration of fixation: 6 Hrs; Sample Adequate: Yes. These assays have not been validated on decalcified tissues. Results should be interpreted with caution given the likelihood of false negativity on decalcified specimens. These tests were developed and their performance characteristics determined by [facility]. They may not have been cleared or approved by the U.S. Food and Drug Administration. The FDA has determined that such clearance or approval is not necessary. 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 Positive for estrogen receptors (favorable prognostic indicator). Negative for progesterone receptors (unfavorable prognostic indicator). Negative for overexpression of LTR1hox. Patient underwent an echocardiogram on 01/11/2017 as well. That study demonstrated normal left ventricular size and systolic function. The estimated ejection fraction was 65%. No regional wall motion abnormalities were noted. There was mild mitral valve prolapse. Trivial mitral valve insufficiency was noted. There was mild tricuspid valve insufficiency with mild focal aortic valve thickening. Right ventricular systolic pressure estimated to be 29 mmHg. The patient declined any further radiographic workup in the hospital until she had definitive proof of breast cancer via the biopsy. Previous therapy: 1) Neoadjuvant ddAC followed by Taxol x4 cycles. 2) Left modified radical mastectomy with axillary lymph node dissection 2017. 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 Changes consistent with treatment effect (presurgical neoadjuvant) therapy both in breast and in the lymph nodes. Multiple skin lesions, consistent with seborrheic keratosis. Eleven out of 11 lymph nodes negative for metastatic carcinoma. INVASIVE BREAST CANCER SUMMARY: Specimen - total breast (including nipple and skin). Procedure - total mastectomy (including nipple and skin). Lymph node sampling - axillary dissection Specimen integrity - single, intact specimen Specimen laterality - left Tumor site - lower inner quadrant Tumor size - 0.5 x 0.3 cm Tumor focality - single focus of invasive carcinoma Macroscopic and Microscopic extent of tumor: Skin - invasive carcinoma does not invade into the dermis or epidermis Nipple - ductal carcinoma does not involve the nipple epidermis. Skeletal muscle - no skeletal muscle present. Ductal carcinoma in situ (DCIS) - no ductal carcinoma in situ is present. Lobular carcinoma in situ (LCIS) - not identified Histologic type of invasive carcinoma - poorly differentiated carcinoma with basaloid features. Histologic Grade (Schneider grade): Glandular/tubular differentiation - score 3 Nuclear pleomorphism - score 3 Mitotic count - score 1 Overall grade - 2 (score of 7) Margins: Margins uninvolved by invasive carcinoma. The tumor is 2 cm away from the deep margin. Treatment effect - response to presurgical (neoadjuvant therapy) - In the breast - definite response to presurgical therapy in the invasive carcinoma. In the lymph node - definite response to presurgical therapy in the metastatic carcinoma. See comment. Lymph-Vascular invasion - not identified Dermal lymph-vascular invasion - not identified Lymph nodes: Number of sentinel lymph nodes examined - 0 Total number of lymph nodes examined (sentinel and nonsentinel) - 11 Number of lymph nodes with macrometastases, micrometastases and isolated tumor cells - 0 Distance metastasis - not applicable Additional pathologic findings: - Extensive area of necrosis, histiocytic reaction and hemorrhage (consistent with presurgical neoadjuvant chemotherapy related changes) - Skin lesions, seborrheic keratosis. - Fibrocystic changes with intraductal hyperplasia without atypia. - Microscopic hyalinized fibroadenoma (0.6 x 0.4 cm) - one lymph node with hemangioma (0.1 cm in greatest dimension). Ancillary studies - previously performed on section of tumor ([id number] / [id number]). ER - positive (38% weak to moderate) MD - negative (0%) Her2 nicko - negative (0) Her2 by dual JENNA - not performed Microcalcifications - not identified Clinical history - Please make reference to previous specimen ([id number]) left breast, core biopsy with diagnosis of poorly differentiated ductal carcinoma, basaloid type. PATHOLOGIC STAGE: pT1a(y) pN0 Mx 3) GKS 08/14/2017 Current therapy: 1) Faslodex and anastrozole. Interim history: Most recent brain MRI in late March raise question of regression versus necrosis of one of the lesions. Plan was for repeat MRI in 2 months. However she didn't start developing symptoms again. She was put back on Decadron. Now scheduled for resection of the single brain metastasis on 05/22. She feels well otherwise. She still going to the gym several days a week. She enjoys doing the treadmill and other weight based and aerobic activities. She's had no cough, chest pain or sputum production. No shortness of breath at rest or with exertion. PMH, medications and allergies personally reviewed by me today. Any changes documented in appropriate section. ROS: Constitutional: No episode of fever, night sweats or shaking chills. Neuro: Denies AYALA. HEENT: No recent change in voice or hearing. Resp: See above. CVS: Denies PND and orthopnea. GI: Denies dysgeusia. Denies symptoms of stomatitis. Denies dysphagia and odynophagia. Denies reflux, n/v, change in bowel habits and abdominal pain. : Denies dysuria or gross hematuria. No symptoms of bladder outlet obstruction. Endo: Denies hot flashes. Denies polyuria and polydipsia. Denies heat and cold intolerance. Musculoskeletal: See above. Derm: Denies rash. Denies jaundice and diffuse pruritis. Heme: Denies unexplained bruising. Psych: Normal mood. PHYSICAL EXAM: Vitals: Blood pressure 134/65, pulse (!) 55, temperature 36.3 ?C (97.3 ?F), temperature source Oral. Well-appearing and in no acute distress. EYES: Sclerae are anicteric bilaterally. NECK: Supple. LYMPHATIC: There is no palpable cervical, supraclavicular or inguinal adenopathy. RESPIRATORY: Inspiratory breath sounds are of normal intensity in all murcia. CARDIOVASCULAR: Rhythm is regular. Normal intensity S1/S2. There is no gallop or murmur. BREAST: Patient declined supervisor dairy sanitation. Left mastectomy site appears healthy and there is no evidence of chest wall nodule or mass. No longer any tenderness. ABDOMEN: The abdomen is nondistended. No organomegaly. No tenderness. Extremities: Now swelling of LEs or ankles now. SKIN: No jaundice or rash. No petechiae. NEUROLOGIC: milieu manager II-XII are grossly intact. She now has normal hand heavy duty custodian strength bilaterally. Upper extremity strength is normal bilaterally. 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 -Patient presented with a neglected breast cancer that was locally advanced and had uncontrollable bleeding. In the interest of starting her treatment urgently, biopsy of the lung masses was deferred. -Post-operatively had 5 mm viable tumor. -No concerning symptoms or exam findings suggesting loss of control systemic disease. -She has been my opinion on the resection of the brain tumor. To her that she's had no other evidence of UNIT COORDINATOR metastases over the last 10 months and did not receive whole brain radiation so I think resection is a very good idea. -She declined every 6 month denosumab treatment. Plan: -Continue Faslodex and anastrozole. -CTs in 2-3 months. -She will be a candidate for aromatase inhibitor therapy and CD4/6 inhibitor therapy if/when progression. Ky Burkett DO CNOVSP Observed: 05/15/2018 Status: COMPLETED Source: [place] 11:10 AM [facility] REPOSITORY Visit (SP) Office ([place]) ANNA BARRERA ([id number]) 1940 F Date Time Provider Department 05/15/18 11:10 AM KY BURKETT During your visit today, we recorded the following information about you: Temperature Pulse Blood pressure 97.3 degrees 55/minute 134/65 Ky Burkett DO 05/15/2018 1:30 PM Signed Diagnosis: 1) Breast cancer. HPI: Patient is a 77-year-old female whom I initially saw in the hospital for consultation. She was admitted on 01/10/2017 for uncontrolled bleeding from a large breast tumor. A CT of the chest was performed in the emergency room. That study demonstrated a 6.2 x 7.3 x 7.7 cm inhomogeneously vascular mass involving the majority of the left breast along the medial aspect. There was diffuse thickening of the overlying skin observed. There was also evidence of increased markings in the lateral portion of the breast. There were small left axillary lymph nodes noted. Dimensions were not rendered. Significantly, multiple nodules were observed in the right lower lobe. The largest measured 2.6 x 1.5 cm. Increased markings were observed at the lung bases just above the bibasilar atelectasis and/or scarring seen. The mediastinum was observed to be normal as were the hilar regions. Multilevel degenerative changes were observed and thoracic spine. The bleeding was controlled with Gelfoam packing. Patient was seen by general surgery. The patient underwent an ultrasound guided biopsy of the left breast mass on 01/11/2017. 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 COMMENT Immunohistochemistry ([id number]) supports the above diagnosis. 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 Case is reviewed in consultation with Dr. Ibarra of [facility] (complete consultative report viewable in patient?s EMR). ER/MD/Rfm0loz studies are being performed on sections of tumor and the results from this study will be reported separately ([id number]). RESULTS: ANTIBODY / CLONE RESULT E-Cad (ECH-6) positive, rare cells CK8 (60mgmrV22) positive, focal P63 (7JUL/4A4) negative Calponin-1 (BE699U) negative CD56 (123C3.D5) negative Chromo (LK2H10) negative Synapto (polyclonal) negative CK5-6 (D5 AND 1684) positive Ki-67 (30-9) positive, high P53 (DO-7) positive, high Vimentin (V9) positive TTF-1 (8G7G3/1) negative AE1-3 (AE1/AE3/PCK26) positive CD45 (RP2/18) negative MART-1 (A-103) negative CK7 (OV-TL12/30) positive CK20 (KS20.8) noncontributory MORPHOMETRIC ANALYSIS ER (clone 6F11) 17%, weak MD (clone 16/1E2) 0 Her-2Neu (clone CB11) 0-1+ The prognostic test for HER2 is performed on formalin-fixed paraffin embedded tissue. A 3+ (positive) staining pattern is defined as intense, homogeneous, complete, circumferential membranous staining in >10% of contiguous tumor cells. A similar weak (2+) staining pattern is interpreted as equivocal. JENNA follow-up testing is recommended for all equivocal cases. Positivity/negativity for ER/MD is reported if > or < 1% of the tumor cells are immuno- reactive, respectively. The ASCO/CAP criteria is used for scoring. Reference: Journal of Clinical Oncology, 2013; 31:9926-0812 AND 2009; 16:3876-4355. Duration of fixation: 6 Hrs; Sample Adequate: Yes. These assays have not been validated on decalcified tissues. Results should be interpreted with caution given the likelihood of false negativity on decalcified specimens. These tests were developed and their performance characteristics determined by [facility]. They may not have been cleared or approved by the U.S. Food and Drug Administration. The FDA has determined that such clearance or approval is not necessary. 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 Positive for estrogen receptors (favorable prognostic indicator). Negative for progesterone receptors (unfavorable prognostic indicator). Negative for overexpression of DAG8oek. Patient underwent an echocardiogram on 01/11/2017 as well. That study demonstrated normal left ventricular size and systolic function. The estimated ejection fraction was 65%. No regional wall motion abnormalities were noted. There was mild mitral valve prolapse. Trivial mitral valve insufficiency was noted. There was mild tricuspid valve insufficiency with mild focal aortic valve thickening. Right ventricular systolic pressure estimated to be 29 mmHg. The patient declined any further radiographic workup in the hospital until she had definitive proof of breast cancer via the biopsy. Previous therapy: 1) Neoadjuvant ddAC followed by Taxol x4 cycles. 2) Left modified radical mastectomy with axillary lymph node dissection 2017. 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 Changes consistent with treatment effect (presurgical neoadjuvant) therapy both in breast and in the lymph nodes. Multiple skin lesions, consistent with seborrheic keratosis. Eleven out of 11 lymph nodes negative for metastatic carcinoma. INVASIVE BREAST CANCER SUMMARY: Specimen - total breast (including nipple and skin). Procedure - total mastectomy (including nipple and skin). Lymph node sampling - axillary dissection Specimen integrity - single, intact specimen Specimen laterality - left Tumor site - lower inner quadrant Tumor size - 0.5 x 0.3 cm Tumor focality - single focus of invasive carcinoma Macroscopic and Microscopic extent of tumor: Skin - invasive carcinoma does not invade into the dermis or epidermis Nipple - ductal carcinoma does not involve the nipple epidermis. Skeletal muscle - no skeletal muscle present. Ductal carcinoma in situ (DCIS) - no ductal carcinoma in situ is present. Lobular carcinoma in situ (LCIS) - not identified Histologic type of invasive carcinoma - poorly differentiated carcinoma with basaloid features. Histologic Grade (Schneider grade): Glandular/tubular differentiation - score 3 Nuclear pleomorphism - score 3 Mitotic count - score 1 Overall grade - 2 (score of 7) Margins: Margins uninvolved by invasive carcinoma. The tumor is 2 cm away from the deep margin. Treatment effect - response to presurgical (neoadjuvant therapy) - In the breast - definite response to presurgical therapy in the invasive carcinoma. In the lymph node - definite response to presurgical therapy in the metastatic carcinoma. See comment. Lymph-Vascular invasion - not identified Dermal lymph-vascular invasion - not identified Lymph nodes: Number of sentinel lymph nodes examined - 0 Total number of lymph nodes examined (sentinel and nonsentinel) - 11 Number of lymph nodes with macrometastases, micrometastases and isolated tumor cells - 0 Distance metastasis - not applicable Additional pathologic findings: - Extensive area of necrosis, histiocytic reaction and hemorrhage (consistent with presurgical neoadjuvant chemotherapy related changes) - Skin lesions, seborrheic keratosis. - Fibrocystic changes with intraductal hyperplasia without atypia. - Microscopic hyalinized fibroadenoma (0.6 x 0.4 cm) - one lymph node with hemangioma (0.1 cm in greatest dimension). Ancillary studies - previously performed on section of tumor ([id number] / [id number]). ER - positive (38% weak to moderate) MD - negative (0%) Her2 nicko - negative (0) Her2 by dual JENNA - not performed Microcalcifications - not identified Clinical history - Please make reference to previous specimen ([id number]) left breast, core biopsy with diagnosis of poorly differentiated ductal carcinoma, basaloid type. PATHOLOGIC STAGE: pT1a(y) pN0 Mx 3) GKS 08/14/2017 Current therapy: 1) Faslodex and anastrozole. Interim history: Most recent brain MRI in late March raise question of regression versus necrosis of one of the lesions. Plan was for repeat MRI in 2 months. However she didn't start developing symptoms again. She was put back on Decadron. Now scheduled for resection of the single brain metastasis on 05/22. She feels well otherwise. She still going to the gym several days a week. She enjoys doing the treadmill and other weight based and aerobic activities. She's had no cough, chest pain or sputum production. No shortness of breath at rest or with exertion. PMH, medications and allergies personally reviewed by me today. Any changes documented in appropriate section. ROS: Constitutional: No episode of fever, night sweats or shaking chills. Neuro: Denies AYALA. HEENT: No recent change in voice or hearing. Resp: See above. CVS: Denies PND and orthopnea. GI: Denies dysgeusia. Denies symptoms of stomatitis. Denies dysphagia and odynophagia. Denies reflux, n/v, change in bowel habits and abdominal pain. : Denies dysuria or gross hematuria. No symptoms of bladder outlet obstruction. Endo: Denies hot flashes. Denies polyuria and polydipsia. Denies heat and cold intolerance. Musculoskeletal: See above. Derm: Denies rash. Denies jaundice and diffuse pruritis. Heme: Denies unexplained bruising. Psych: Normal mood. PHYSICAL EXAM: Vitals: Blood pressure 134/65, pulse (!) 55, temperature 36.3 ?C (97.3 ?F), temperature source Oral. Well-appearing and in no acute distress. EYES: Sclerae are anicteric bilaterally. NECK: Supple. LYMPHATIC: There is no palpable cervical, supraclavicular or inguinal adenopathy. RESPIRATORY: Inspiratory breath sounds are of normal intensity in all murcia. CARDIOVASCULAR: Rhythm is regular. Normal intensity S1/S2. There is no gallop or murmur. BREAST: Patient declined supervisor dairy sanitation. Left mastectomy site appears healthy and there is no evidence of chest wall nodule or mass. No longer any tenderness. ABDOMEN: The abdomen is nondistended. No organomegaly. No tenderness. Extremities: Now swelling of LEs or ankles now. SKIN: No jaundice or rash. No petechiae. NEUROLOGIC: milieu manager II-XII are grossly intact. She now has normal hand heavy duty custodian strength bilaterally. Upper extremity strength is normal bilaterally. 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 -Patient presented with a neglected breast cancer that was locally advanced and had uncontrollable bleeding. In the interest of starting her treatment urgently, biopsy of the lung masses was deferred. -Post-operatively had 5 mm viable tumor. -No concerning symptoms or exam findings suggesting loss of control systemic disease. -She has been my opinion on the resection of the brain tumor. To her that she's had no other evidence of UNIT COORDINATOR metastases over the last 10 months and did not receive whole brain radiation so I think resection is a very good idea. -She declined every 6 month denosumab treatment. Plan: -Continue Faslodex and anastrozole. -CTs in 2-3 months. -She will be a candidate for aromatase inhibitor therapy and CD4/6 inhibitor therapy if/when progression. DO Annamarie Lopez, SHANNON, PRESCHOOL ASSISTANT TEACHER 05/15/2018 12:03 PM Signed Influenza Vaccine Documentation: ? Patient is identified by name and date of : Yes ? Patient is older than 6 months of age: Yes ? Patient denies a severe allergy to any vaccine component or to a previous dose of influenza vaccine: Yes FOR EGG ALLERGY CONCERNS, REFER TO PROVIDER. ? Denies allergy to gelatin, formaldehyde, thimerosol :Yes ? Patient is afebrile and not moderately or severely ill: Yes ? Does the patient have a history of Guillain ?[place] Syndrome (a severe paralytic illness): No ? Denies bone marrow transplant prior 6 months or solid organ transplant prior 3 months: Yes ? Denies a history of fainting after a prior injection or medical procedure? Yes If patient has fainted in the past, the CDC recommends sitting or lying down for 15 minutes after the vaccination. ? VIS sheet provided: Yes ? See Immunization Form in [facility] for details of immunizations administered today. If patient reports dizziness, vision changes or ringing in the ears post vaccination ? please have patient sit or lie down for 15 minutes. 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) [C78.01] Other Visit Diagnosis:Malignant neoplasm of overlapping sites of left breast in female, estrogen receptor positive (HCC) [C50.812, Z17.0] Order(s):[facility] [[id number]] Order #: [id number]: 1 STANDING TREATMENT PARAMETER-NOT NEEDED [[id number]] Order #: [id number]: 1 [] fulvestrant 500 mg injection (FASLODEX)Disp: Rfl: CT ABD/PEL W IVCON [[id number]] Order #: [id number] FUTURE CT CHEST W IVCON [[id number]] Order #: [id number] FUTURE iv contrast (will be provided with radiology test)CT Chest ABD/PEL-Inject, intravenously, once for 1 dose.No IV access, insert saline lock prior to the beginning of sedation, infusion, injection of imaging exam. Discontinue saline lock post exam. If Pt. has a central line or IVAD, may access for administration according to line specific nursing protocol. Once exam is complete flush line and de-access according to line specific nursing protocol in the CT contrast administration guidelines link.Disp: 1 EachRfl: 0 enteric contrast (will be provided with radiology test)For CT CHESTABD/PEL W IVCON Routine order Administer, As Directed One Time Only, via Oral, Rectal, both Oral and Rectal, Enteric Tube, Stoma or Indwelling Catheter, Enteric Contrast as designated per enteric contrast guidelinesDisp: 1 EachRfl: 0 [] influenza vaccine 180 mcg (Patients 65 years and older) (PF) (FLUZONE HIGH DOSE )Disp: Rfl: Follow-up and Disposition History Recorded Prescriptions as of 05/15/2018 Sig: IV CONTRAST (RADIOLOGY PROCED* CT Chest ABD/PEL-Inject, intr* ENTERIC CONTRAST (RADIOLOGY P* For CT CHESTABD/PEL W IVCON R* DEXAMETHASONE 4 MG TABLET Take 1 tablet by mouth twice * OMEPRAZOLE 20 MG CAPSULE,MAMADOU* Take 2 capsules by mouth once* ONDANSETRON HCL 8 MG TABLET Take 1 tablet by mouth every * Patient not taking: Reported on 04/17/2018 ANASTROZOLE 1 MG TABLET Take 1 tablet by mouth once d* FULVESTRANT 250 MG/5 ML INTRA* Inject 250 mg intramuscularly* ONDANSETRON 4 MG DISINTEGRATI* Take 4 mg by mouth three time* LORAZEPAM 0.5 MG TABLET Take 1 tablet by mouth three * LEVOTHYROXINE 125 MCG TABLET 112 mcg once daily. ACETAMINOPHEN 325 MG TABLET Take 500 mg by mouth every 6 * METOPROLOL TARTRATE 50 MG TAB* 50 mg twice daily. Problem List As Of Date 05/15/2018 Noted Resolved Breast CA (HCC) [C50.919] INVALID FOR*03/21/2017 More... Malignant neoplasm of overlapping sites of left*INVALID FOR* 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 (HC*INVALID FOR* Brain metastases (HCC) [C79.31] INVALID FOR* Brain metastasis (HCC) [C79.31] INVALID FOR* More... Visit Notes: >> Annamarie Carina (Parer) Edie PRESCHOOL ASSISTANT TEACHERGia Flores May 15, 2018 12:02 PM Status: Signed Influenza Vaccine Documentation: ? Patient is identified by name and date of : Yes ? Patient is older than 6 months of age: Yes ? Patient denies a severe allergy to any vaccine component or to a previous dose of influenza vaccine: Yes FOR EGG ALLERGY CONCERNS, REFER TO PROVIDER. ? Denies allergy to gelatin, formaldehyde, thimerosol :Yes ? Patient is afebrile and not moderately or severely ill: Yes ? Does the patient have a history of Guillain ?[place] Syndrome (a severe paralytic illness): No ? Denies bone marrow transplant prior 6 months or solid organ transplant prior 3 months: Yes ? Denies a history of fainting after a prior injection or medical procedure? Yes If patient has fainted in the past, the CDC recommends sitting or lying down for 15 minutes after the vaccination. ? VIS sheet provided: Yes ? See Immunization Form in [facility] for details of immunizations administered today. If patient reports dizziness, vision changes or ringing in the ears post vaccination ? please have patient sit or lie down for 15 minutes. Encounter Status:Closed by KY BURKETT DO on 05/15/18 [facility] ABS GR + CBC Collected: 05/15/2018 Status: F Source: [place] 11:00 AM [facility] REPOSITORY TYPE CODE TESTS RESULT OUT OF REFERENCE UNITS RANGE LAB WWBC 3.70-11.00 k/uL [place] High WBC 16.37 LAB WRBC 3.90-5.20 m/uL [place] RBC 4.28 LAB WHGB 11.5-15.5 g/dL [place] Hemoglobin 13.6 LAB WHCT 36.0-46.0 % [facility] Hematocrit 40.7 LAB WMCV 80.0-100.0 fL [place] MCV 95.1 LAB WMCH 26.0-34.0 pg [place] MCH 31.8 LAB WMCHC 30.5-36.0 g/dL [facility] MCHC 33.4 LAB WRDW 11.5-15.0 % [place] RDW 13.5 LAB WPLT 150-400 k/uL [place] Platelet Cnt 324 LAB WMPV 9.0-12.7 fL [place] MPV 9.3 Result Comment: Test performed at: [facility], [address] [place] [address]. LAB ABGRAN 1.45-7.50 k/uL High Absol 13.44 Gran Count COMP METABOLIC PANEL Collected: 05/15/2018 Status: F Source: [place] 11:00 AM [facility] REPOSITORY TYPE CODE TESTS RESULT OUT OF REFERENCE UNITS RANGE LAB TP 6.3-8.0 g/dL Protein, Low Total 6.1 LAB ALB 3.9-4.9 g/dL Albumin 3.9 LAB CA 8.5-10.2 mg/dL Calcium, Total 9.9 LAB TBIL 0.2-1.3 mg/dL Bilirubin, Total 0.3 LAB ALKP 34-123 U/L Alkaline Phosphatase 84 LAB AST 13-35 U/L AST Low 12 LAB GLU 74-99 mg/dL Glucose High 168 LAB BUN 7-21 mg/dL BUN 20 LAB CRET 0.58-0.96 mg/dL Creatinine 0.64 LAB NA 136-144 mmol/L Sodium 136 LAB K 3.7-5.1 mmol/L Potassium 4.3 LAB CL 97-105 mmol/L Chloride 100 LAB CO2 22-30 mmol/L CO2 25 LAB AGAP mmol/L Anion Gap 11 LAB ALT 7-38 U/L ALT 12 LAB GFRAA eGFR- >60 Amer. LAB GFRNAA . eGFR-All Other Races >60 Result Comment: eGFR (Estimated GFR) Units of measure: mL/min/1.73 meters squared eGFR is derived from the reexpressed MDRD Study equation using the following parameters: serum creatinine, age, gender and race. The creatinine assay has been calibrated to be traceable to IDMS. An eGFR <60 mL/min/1.73m2 for >3 months is consistent with chronic kidney disease. Refer to KDOQI guidelines for clinical interpretation. In patients with unstable renal function, e.g. those with acute kidney injury, the eGFR may not accurately reflect actual GFR. PROGRESS Observed: 04/18/2018 Status: COMPLETED Source: [place] 12:42 PM [facility] [place] REPOSITORY HNO ID: [id number] Author: Navdeep Garcia Service: (none) Author Type: Physician Type: Progress Notes Filed: 04/18/2018 4:00 PM Note Text: FOLLOW-UP PROGRESS NOTE Purpose of Visit: Ongoing patient management. S/p GK for brain tumor in 08/06 Vital Signs: BP 137/72 Pulse 74 Temp 36.4 ?C (97.6 ?F) (Oral) Resp 16 Wt 67.6 kg (149 lb) SpO2 99% BMI 26.19 kg/m? Medications: Current Outpatient Prescriptions: anastrozole (ARIMIDEX) 1 mg tablet Take 1 tablet by mouth once daily. Disp: 90 tablet Rfl: 3 fulvestrant (FASLODEX) 250 mg/5 mL injection Inject 250 mg intramuscularly q 4 WEEKS. Disp: Rfl: LORazepam (ATIVAN) 0.5 mg tab Take 1 tablet by mouth three times daily as needed for up to 30 days. Disp: 45 tablet Rfl: 0 levothyroxine (SYNTHROID) 125 mcg tablet 112 mcg once daily. Disp: Rfl: metoprolol tartrate, short acting, (LOPRESSOR) 50 mg tablet 50 mg twice daily. Disp: Rfl: ondansetron (ZOFRAN) 8 mg tablet Take 1 tablet by mouth every 8 hours as needed. FOR NAUSEA (Patient not taking: Reported on 04/17/2018 ) Disp: 40 tablet Rfl: 0 omeprazole (PRILOSEC) 20 mg capsule Take 2 capsules by mouth once daily. (Patient not taking: Reported on 04/17/2018 ) Disp: 60 capsule Rfl: 2 ondansetron orally disintegrating (ZOFRAN ODT) 4 mg disintegrating tablet Take 4 mg by mouth three times daily as needed. Disp: Rfl: 0 acetaminophen (TYLENOL) 325 mg tablet Take 500 mg by mouth every 6 hours as needed. Disp: Rfl: No current facility-administered medications for this visit. Subjective: Since last visit she has had weakness on the RUE and stereoid was restarted for her with 4 weeks taper plan. She's currently 2 weeks post steroid with no neuro deficit. She was diagnosed with NSCLC and brain metastasis and had GK as above. She denies any new neurological complaints. Systemically she is stable on Faslodex and anastrozole. She is here for follow up with a new MRI. Neurological Exam: No new findings Other Physical Findings: No interval change New Imaging Studies: IMPRESSION: Mild interval increase in size of the left dorsal frontal centrum semiovale lesion with new mild elevated CBV associated with the peripheral enhancing portion. No other enhancing lesions identified. ?No evidence of leptomeningeal disease. Kitchen Helper: PSCYasmani ? Transcribe Date/Time: Apr 16 2018 ?3:30P Dictated by : JERRY FONSECA MD New Pathology Results: None New Laboratory Studies: None Assessment: I discussed radiographic findings with patient. Left frontal lesion is a bit larger with increased edema and no some suspicious increased perfusion. Hard to tell if this is tumor progression versus radiation necrosis. Symptomatically she improved on steroid with no new symptoms after stopping the steroid. Since no clinical symptom, I will follow her with a new MRI in 2 months. If she started to have symptoms, will start steroid and plan for surgery. I dicussed biopsy and laser ablation versus awake craniotomy and I believe that awake craniotomy is the best next step. Plan: Follow up with a new MRI in 2 months. In case she started having symptoms at the meantime will proceed with surgical options likely awake craniotomy for resection of brain tumor Navdeep Garcia MD CNOV Observed: 04/18/2018 Status: COMPLETED Source: [place] 11:40 AM [facility] REPOSITORY Office Visit ([facility]) ANNA BARRERA ([id number]) 1940 F Date Time Provider Department 04/18/18 11:40 AM [facility] During your visit today, we recorded the following information about you: Temperature Pulse Respiration Blood pressure 97.6 degrees 74/minute 16/minute 137/72 Weight 67.6 kg Stacey Madsen Ma 04/18/2018 12:10 PM Signed Additional intake questions: Has the patient had nausea, vomiting, diarrhea, constipation, fatigue for > 1 week? None of the above Does the patient have a decreased appetite? No Does patient want to see a Induction Furnace Operator? No (yes to any of above refer patient to schedulers for dietitian appointment) ) Does patient have any new or increased numbness or tingling of extremities? No Is patient interested in fertility information? No Does patient need any prescription refills? No Electronically Signed By: Stacey Garcia MD 04/18/2018 4:00 PM Signed FOLLOW-UP PROGRESS NOTE Purpose of Visit: Ongoing patient management. S/p GK for brain tumor in 08/06 Vital Signs: BP 137/72 Pulse 74 Temp 36.4 ?C (97.6 ?F) (Oral) Resp 16 Wt 67.6 kg (149 lb) SpO2 99% BMI 26.19 kg/m? Medications: Current Outpatient Prescriptions: anastrozole (ARIMIDEX) 1 mg tablet Take 1 tablet by mouth once daily. Disp: 90 tablet Rfl: 3 fulvestrant (FASLODEX) 250 mg/5 mL injection Inject 250 mg intramuscularly q 4 WEEKS. Disp: Rfl: LORazepam (ATIVAN) 0.5 mg tab Take 1 tablet by mouth three times daily as needed for up to 30 days. Disp: 45 tablet Rfl: 0 levothyroxine (SYNTHROID) 125 mcg tablet 112 mcg once daily. Disp: Rfl: metoprolol tartrate, short acting, (LOPRESSOR) 50 mg tablet 50 mg twice daily. Disp: Rfl: ondansetron (ZOFRAN) 8 mg tablet Take 1 tablet by mouth every 8 hours as needed. FOR NAUSEA (Patient not taking: Reported on 04/17/2018 ) Disp: 40 tablet Rfl: 0 omeprazole (PRILOSEC) 20 mg capsule Take 2 capsules by mouth once daily. (Patient not taking: Reported on 04/17/2018 ) Disp: 60 capsule Rfl: 2 ondansetron orally disintegrating (ZOFRAN ODT) 4 mg disintegrating tablet Take 4 mg by mouth three times daily as needed. Disp: Rfl: 0 acetaminophen (TYLENOL) 325 mg tablet Take 500 mg by mouth every 6 hours as needed. Disp: Rfl: No current facility-administered medications for this visit. Subjective: Since last visit she has had weakness on the RUE and stereoid was restarted for her with 4 weeks taper plan. She's currently 2 weeks post steroid with no neuro deficit. She was diagnosed with NSCLC and brain metastasis and had GK as above. She denies any new neurological complaints. Systemically she is stable on Faslodex and anastrozole. She is here for follow up with a new MRI. Neurological Exam: No new findings Other Physical Findings: No interval change New Imaging Studies: IMPRESSION: Mild interval increase in size of the left dorsal frontal centrum semiovale lesion with new mild elevated CBV associated with the peripheral enhancing portion. No other enhancing lesions identified. ?No evidence of leptomeningeal disease. Kitchen Helper: BUCKY ? Transcribe Date/Time: Apr 16 2018 ?3:30P Dictated by : JERRY FONSECA MD New Pathology Results: None New Laboratory Studies: None Assessment: I discussed radiographic findings with patient. Left frontal lesion is a bit larger with increased edema and no some suspicious increased perfusion. Hard to tell if this is tumor progression versus radiation necrosis. Symptomatically she improved on steroid with no new symptoms after stopping the steroid. Since no clinical symptom, I will follow her with a new MRI in 2 months. If she started to have symptoms, will start steroid and plan for surgery. I dicussed biopsy and laser ablation versus awake craniotomy and I believe that awake craniotomy is the best next step. Plan: Follow up with a new MRI in 2 months. In case she started having symptoms at the meantime will proceed with surgical options likely awake craniotomy for resection of brain tumor Navdeep Garcia MD Referring Provider: NAVDEEP GARCIA [[id number]] Allergies As of Date: 04/18/2018 Noted Allergy Reaction ALCOHOL, UNSPECIFIED 01/31/2017 5 - Intolerance Comments: Recovering alcoholic TETRACYCLINE 01/31/2017 14 - Other: See Comments Comments: Thrush in mouth PHENERGAN (PROMETHAZINE HCL) 09/18/2017 1 - Mental Status Change Date Reviewed: 04/18/2018 Reviewed by: Stacey Madsen Ma - Fully Assessed Reason for Visit: Established Patient [175] Primary Visit Diagnosis: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 METOPROLOL TARTRATE 50 MG TAB* 50 mg twice daily. ONDANSETRON HCL 8 MG TABLET Take 1 tablet by mouth every * Patient not taking: Reported on 04/17/2018 OMEPRAZOLE 20 MG CAPSULE,MAMADOU* Take 2 capsules by mouth once* Patient not taking: Reported on 04/17/2018 ONDANSETRON 4 MG DISINTEGRATI* Take 4 mg by mouth three time* ACETAMINOPHEN 325 MG TABLET Take 500 mg by mouth every 6 * Problem List As Of Date 04/18/2018 Noted Resolved Breast CA (HCC) [C50.919] INVALID FOR*03/21/2017 More... Malignant neoplasm of overlapping sites of left*INVALID FOR* 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 (HC*INVALID FOR* Brain metastases (HCC) [C79.31] INVALID FOR* Visit Notes: >> Stacey Madsen Ma Wed Apr 18, 2018 12:07 PM Status: Signed Additional intake questions: Has the patient had nausea, vomiting, diarrhea, constipation, fatigue for > 1 week? None of the above Does the patient have a decreased appetite? No Does patient want to see a Induction Furnace Operator? No (yes to any of above refer patient to schedulers for dietitian appointment) ) Does patient have any new or increased numbness or tingling of extremities? No Is patient interested in fertility information? No Does patient need any prescription refills? No Electronically Signed By: Stacey Madsen Ma Medications Discontinued During This Encounter dexamethasone (DECADRON) 2 mg tablet 56 t* 0 03/07/2018 04/18/2018 Simg BID x 1 week, then 4mg QD x 1 week, then 2mg QD x 1 week, then 2mg QOD x 1 week, then stop this med Patient not taking: Reported on 04/17/2018 Disc: Reason for discontinue is not on file. Encounter Status:Closed by NAVDEEP GARCIA MD on 04/18/18 MRI BRAIN WO/W Observed: 04/16/2018 Status: F Source: [facility] 3:05 PM [facility] REPOSITORY * * *Final Report* * * DATE OF EXAM: Apr 16 2018 3:05PM WR [id number] - MRI BRAIN WO/W IVCON / PROCEDURE REASON: Secondary malignant neoplasm of brain * * * * Physician Interpretation * * * * EXAMINATION: MRI BRAIN WO/W IVCON CLINICAL HISTORY: Intracranial breast carcinoma metastasis. TECHNIQUE: Routine brain MRI protocol without and with contrast including diffusion images. Perfusion with gadolinium. MQ: [id number] Contrast: 13ml mL Dotarem IV COMPARISON: MRI brain from 02/12/2018 RESULT: Acute Change: There is no evidence of restricted diffusion to suggest an acute infarct. Hemorrhage: No evidence of prior parenchymal hemorrhage on the gradient echo images. Mass Lesion/ Mass Effect: There is an ovoid lesion in the left dorsal frontal centrum semiovale which now measures 1.4 x 1.7 x 1.8 cm in size (up from 1.2 x 1.4 x 1.3 cm in size previously) . This lesion now shows central nonenhancing whereas on the previous exam it was more homogeneous. Also on perfusion CBV maps there is mild elevated CBV associated with the area of peripheral enhancement. There is only localized mass effect. The moderate zone of vasogenic edema surrounding this lesion is unchanged. Chronic Change: Scattered punctate foci of increased T2 and FLAIR signal are noted in the supratentorial white matter which is a nonspecific finding, but likely represents minimal chronic microvascular ischemia. Parenchyma: There is moderate generalized parenchymal volume loss. The brain parenchyma is otherwise within normal limits of signal intensity and morphology. Ventricles: Normal caliber and morphology. Skull Base: Hypothalamic and pituitary region are grossly normal. Craniocervical junction is normal. No significant marrow replacement process. Vasculature: Major intracranial arterial structures, and dural venous sinuses show typical flow void, suggesting patency by spin echo criteria. Other: The visualized paranasal sinuses and mastoid air cells are clear. The orbits and extracranial soft tissues are unremarkable. IMPRESSION: Mild interval increase in size of the left dorsal frontal centrum semiovale lesion with new mild elevated CBV associated with the peripheral enhancing portion. No other enhancing lesions identified. No evidence of leptomeningeal disease. Kitchen Helper: BUCKY Transcribe Date/Time: Apr 16 2018 3:30P Dictated by : JERRY FONSECA MD This examination was interpreted and the report reviewed and electronically signed by: JERRY FONSECA MD on Apr 16 2018 3:35PM EST [id number] PROGRESS Observed: 04/16/2018 Status: COMPLETED Source: [place] 2:54 PM [facility] [place] REPOSITORY HNO ID: [id number] Author: Abbey Moura (Rt) Service: (none) Author Type: Darklight Inspector Type: Progress Notes Filed: 04/16/2018 2:55 PM Note Text: Radiology Service Progress Note PATIENT NAME: Anna Barrera DATE OF SERVICE: April 16, 2018 TIME: 2:54 PM PATIENT IDENTITY VERIFICATION COMPLETED USING TWO (2) METHODS: Patient confirmed name verbally and Date of . PATIENT GENDER DATA: Female. status: : No status: NO. PATIENT RELEVANT IMPLANT DATA REVIEWED: Yes CONTRAST INDUCED NEPHROPATHY RISK FACTORS: Patient age > 60 years CREATININE: Creatinine Date Value Ref Range Status 04/16/2018 0.85 0.58 - 0.96 mg/dL Final 07/05/2017 0.57 (L) 0.58 - 0.96 mg/dL Final 01/31/2017 0.79 0.58 - 0.96 mg/dL Final Creatinine, Whole Blood (iSTAT) Date Value Ref Range Status 11/27/2017 0.60 (L) 0.70 - 1.40 mg/dL Final 07/26/2017 0.70 0.70 - 1.40 mg/dL Final 05/29/2017 0.80 0.70 - 1.40 mg/dL Final Creatinine (POCT) Date Value Ref Range Status 01/04/2018 0.60 (A) 0.7 - 1.4 mg/dL Final 10/05/2017 0.90 0.7 - 1.4 mg/dL Final eGFR-All Other Races Date Value Ref Range Status 04/16/2018 >60 . Final Comment: eGFR (Estimated GFR) Units of measure: mL/min/1.73 meters squared eGFR is derived from the reexpressed MDRD Study equation using the following parameters: serum creatinine, age, gender and race. The creatinine assay has been calibrated to be traceable to IDMS. An eGFR <60 mL/min/1.73m2 for >3 months is consistent with chronic kidney disease. Refer to KDOQI guidelines for clinical interpretation. In patients with unstable renal function, e.g. those with acute kidney injury, the eGFR may not accurately reflect actual GFR. eGFR- Date Value Ref Range Status 04/16/2018 >60 Final P.O.C.T. RESULTS: POC done: Yes, See Lab Tab April 16, 2018 RADIOLOGIST NOTIFIED?: No ALLERGIES: Reviewed and unchanged CONTRAST ALLERGY: NO. PERIPHERAL IV ACCESS: Ambulatory: IV type: A peripheral IV was started in the Right antecubital site with a Angio cath: 20 gauge., Site assessment: Clean,Dry and Intact, Site disposition Discontinued RADIOLOGY DEPARTMENT: MR; Exam(s) Completed: Head: Routine Brain with Perfusion SIGNED BY: RT Zeny April 16, 2018 2:54 PM CREATININE Collected: 04/16/2018 Status: F Source: [place] 2:16 PM [facility] REPOSITORY TYPE CODE TESTS RESULT OUT OF REFERENCE UNITS RANGE LAB CRET 0.58-0.96 mg/dL Creatinine 0.85 LAB GFRAA eGFR- >60 Amer. LAB GFRNAA . eGFR-All Other Races >60 Result Comment: eGFR (Estimated GFR) Units of measure: mL/min/1.73 meters squared eGFR is derived from the reexpressed MDRD Study equation using the following parameters: serum creatinine, age, gender and race. The creatinine assay has been calibrated to be traceable to IDMS. An eGFR <60 mL/min/1.73m2 for >3 months is consistent with chronic kidney disease. Refer to KDOQI guidelines for clinical interpretation. In patients with unstable renal function, e.g. those with acute kidney injury, the eGFR may not accurately reflect actual GFR. PROGRESS Observed: 02/20/2018 Status: COMPLETED Source: [place] 11:21 AM [facility] REPOSITORY O ID: [id number] Author: Ky Burkett Service: (none) Author Type: Physician Type: Progress Notes Filed: 02/20/2018 11:38 AM Note Text: Diagnosis: 1) Breast cancer. HPI: Patient is a 77-year-old female whom I initially saw in the hospital for consultation. She was admitted on 01/10/2017 for uncontrolled bleeding from a large breast tumor. A CT of the chest was performed in the emergency room. That study demonstrated a 6.2 x 7.3 x 7.7 cm inhomogeneously vascular mass involving the majority of the left breast along the medial aspect. There was diffuse thickening of the overlying skin observed. There was also evidence of increased markings in the lateral portion of the breast. There were small left axillary lymph nodes noted. Dimensions were not rendered. Significantly, multiple nodules were observed in the right lower lobe. The largest measured 2.6 x 1.5 cm. Increased markings were observed at the lung bases just above the bibasilar atelectasis and/or scarring seen. The mediastinum was observed to be normal as were the hilar regions. Multilevel degenerative changes were observed and thoracic spine. The bleeding was controlled with Gelfoam packing. Patient was seen by general surgery. The patient underwent an ultrasound guided biopsy of the left breast mass on 01/11/2017. 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 COMMENT Immunohistochemistry ([id number]) supports the above diagnosis. 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 Case is reviewed in consultation with Dr. Ibarra of [facility] (complete consultative report viewable in patient?s EMR). ER/MD/Ktn0cyy studies are being performed on sections of tumor and the results from this study will be reported separately ([id number]). RESULTS: ANTIBODY / CLONE RESULT E-Cad (ECH-6) positive, rare cells CK8 (45brclF52) positive, focal P63 (7JUL/4A4) negative Calponin-1 (PO245O) negative CD56 (123C3.D5) negative Chromo (LK2H10) negative Synapto (polyclonal) negative CK5-6 (D5 AND 1684) positive Ki-67 (30-9) positive, high P53 (DO-7) positive, high Vimentin (V9) positive TTF-1 (8G7G3/1) negative AE1-3 (AE1/AE3/PCK26) positive CD45 (RP2/18) negative MART-1 (A-103) negative CK7 (OV-TL12/30) positive CK20 (KS20.8) noncontributory MORPHOMETRIC ANALYSIS ER (clone 6F11) 17%, weak MD (clone 16/1E2) 0 Her-2Neu (clone CB11) 0-1+ The prognostic test for HER2 is performed on formalin-fixed paraffin embedded tissue. A 3+ (positive) staining pattern is defined as intense, homogeneous, complete, circumferential membranous staining in >10% of contiguous tumor cells. A similar weak (2+) staining pattern is interpreted as equivocal. JENNA follow-up testing is recommended for all equivocal cases. Positivity/negativity for ER/MD is reported if > or < 1% of the tumor cells are immuno- reactive, respectively. The ASCO/CAP criteria is used for scoring. Reference: Journal of Clinical Oncology, 2013; 31:6417-8337 AND 2009; 16:4414-8461. Duration of fixation: 6 Hrs; Sample Adequate: Yes. These assays have not been validated on decalcified tissues. Results should be interpreted with caution given the likelihood of false negativity on decalcified specimens. These tests were developed and their performance characteristics determined by [facility]. They may not have been cleared or approved by the U.S. Food and Drug Administration. The FDA has determined that such clearance or approval is not necessary. 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 Positive for estrogen receptors (favorable prognostic indicator). Negative for progesterone receptors (unfavorable prognostic indicator). Negative for overexpression of KXS4hgg. Patient underwent an echocardiogram on 01/11/2017 as well. That study demonstrated normal left ventricular size and systolic function. The estimated ejection fraction was 65%. No regional wall motion abnormalities were noted. There was mild mitral valve prolapse. Trivial mitral valve insufficiency was noted. There was mild tricuspid valve insufficiency with mild focal aortic valve thickening. Right ventricular systolic pressure estimated to be 29 mmHg. The patient declined any further radiographic workup in the hospital until she had definitive proof of breast cancer via the biopsy. Previous therapy: 1) Neoadjuvant ddAC followed by Taxol x4 cycles. 2) Left modified radical mastectomy with axillary lymph node dissection 2017. 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 Changes consistent with treatment effect (presurgical neoadjuvant) therapy both in breast and in the lymph nodes. Multiple skin lesions, consistent with seborrheic keratosis. Eleven out of 11 lymph nodes negative for metastatic carcinoma. INVASIVE BREAST CANCER SUMMARY: Specimen - total breast (including nipple and skin). Procedure - total mastectomy (including nipple and skin). Lymph node sampling - axillary dissection Specimen integrity - single, intact specimen Specimen laterality - left Tumor site - lower inner quadrant Tumor size - 0.5 x 0.3 cm Tumor focality - single focus of invasive carcinoma Macroscopic and Microscopic extent of tumor: Skin - invasive carcinoma does not invade into the dermis or epidermis Nipple - ductal carcinoma does not involve the nipple epidermis. Skeletal muscle - no skeletal muscle present. Ductal carcinoma in situ (DCIS) - no ductal carcinoma in situ is present. Lobular carcinoma in situ (LCIS) - not identified Histologic type of invasive carcinoma - poorly differentiated carcinoma with basaloid features. Histologic Grade (Elena grade): Glandular/tubular differentiation - score 3 Nuclear pleomorphism - score 3 Mitotic count - score 1 Overall grade - 2 (score of 7) Margins: Margins uninvolved by invasive carcinoma. The tumor is 2 cm away from the deep margin. Treatment effect - response to presurgical (neoadjuvant therapy) - In the breast - definite response to presurgical therapy in the invasive carcinoma. In the lymph node - definite response to presurgical therapy in the metastatic carcinoma. See comment. Lymph-Vascular invasion - not identified Dermal lymph-vascular invasion - not identified Lymph nodes: Number of sentinel lymph nodes examined - 0 Total number of lymph nodes examined (sentinel and nonsentinel) - 11 Number of lymph nodes with macrometastases, micrometastases and isolated tumor cells - 0 Distance metastasis - not applicable Additional pathologic findings: - Extensive area of necrosis, histiocytic reaction and hemorrhage (consistent with presurgical neoadjuvant chemotherapy related changes) - Skin lesions, seborrheic keratosis. - Fibrocystic changes with intraductal hyperplasia without atypia. - Microscopic hyalinized fibroadenoma (0.6 x 0.4 cm) - one lymph node with hemangioma (0.1 cm in greatest dimension). Ancillary studies - previously performed on section of tumor ([id number] / [id number]). ER - positive (38% weak to moderate) MD - negative (0%) Her2 nicko - negative (0) Her2 by dual JENNA - not performed Microcalcifications - not identified Clinical history - Please make reference to previous specimen ([id number]) left breast, core biopsy with diagnosis of poorly differentiated ductal carcinoma, basaloid type. PATHOLOGIC STAGE: pT1a(y) pN0 Mx 3) GKS 08/14/2017 Current therapy: 1) Faslodex and anastrozole. Interim history: She underwent brain MRI last week. Possible progression versus radiation necrosis was entertained. She says she is completely asymptomatic. She feels well. She is working out 3 times a week at [facility]. She remains active. She has no musculoskeletal pain. No signal in side effects from Faslodex/anastrozole. PMH, medications and allergies personally reviewed by me today. Any changes documented in appropriate section. ROS: Constitutional: No episode of fever, night sweats or shaking chills. Neuro: Denies AYALA, vertigo, dizziness. HEENT: No recent change in voice or hearing. Resp: See above. CVS: Denies PND and orthopnea. GI: Denies dysgeusia. Denies symptoms of stomatitis. Denies dysphagia and odynophagia. Denies reflux, n/v, change in bowel habits and abdominal pain. : Denies dysuria or gross hematuria. No symptoms of bladder outlet obstruction. Endo: Denies hot flashes. Denies polyuria and polydipsia. Denies heat and cold intolerance. Musculoskeletal: See above. Derm: Denies rash. Denies jaundice and diffuse pruritis. Heme: Denies unexplained bruising. Psych: Normal mood. PHYSICAL EXAM: Vitals: Blood pressure 113/65, pulse 69, temperature 36.9 ?C (98.4 ?F), temperature source Oral, weight 67.8 kg (149 lb 8 oz), SpO2 97 %. Well-appearing and in no acute distress. EYES: Sclerae are anicteric bilaterally. NECK: Supple. LYMPHATIC: There is no palpable cervical, supraclavicular or inguinal adenopathy. RESPIRATORY: Inspiratory breath sounds are of normal intensity in all murcia. CARDIOVASCULAR: Rhythm is regular. Normal intensity S1/S2. There is no gallop or murmur. BREAST: Patient declined supervisor dairy sanitation. Left mastectomy site appears healthy and there is no evidence of chest wall nodule or mass. No longer any tenderness. ABDOMEN: The abdomen is nondistended. No organomegaly. No tenderness. Extremities: Now swelling of LEs or ankles now. SKIN: No jaundice or rash. No petechiae. NEUROLOGIC: milieu manager II-XII are grossly intact. She now has normal hand heavy duty custodian strength bilaterally. Upper extremity strength is normal bilaterally. 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 -Patient presented with a neglected breast cancer that was locally advanced and had uncontrollable bleeding. In the interest of starting her treatment urgently, biopsy of the lung masses was deferred. -Post-operatively had 5 mm viable tumor. -Solitary left frontal brain metastasis. s/p GKS. No symptoms. -Reviewed overall goals of treatment. She's tolerating Faslodex and anastrozole very well with essentially no side effects. We reviewed the results of her brain MRI. She wanted my thoughts on whether or not she should go on Trental/vitamin E at the tumor board recommends. I cited some of the research that's known about it and the fact the patient seemed to tolerate it very well. -She declines every 6 month denosumab treatment. Plan: -Continue Faslodex and anastrozole. -Schedule for MRI of the brain in a month. In the meantime awaiting tumor Board recommendations versus Trental/vitamin E. -OV in about 3 months. -Scans in about 3 months. Ky Burkett DO CNOVSP Observed: 02/20/2018 Status: COMPLETED Source: [place] 10:50 AM [facility] REPOSITORY Visit (SP) Office (JAYA) ANNA BARRERA ([id number]) 1940 F Date Time Provider Department 02/20/18 10:50 AM [place] BURKETT During your visit today, we recorded the following information about you: Temperature Pulse Blood pressure Weight 98.4 degrees 69/minute 113/65 67.8 kg Cele Kim LPN 02/20/2018 11:21 AM Signed Faslodex injection administered bilateral buttocks, tolerated well, no immediate adverse reactions noted. Cele Burkett DO 02/20/2018 11:38 AM Signed Diagnosis: 1) Breast cancer. HPI: Patient is a 77-year-old female whom I initially saw in the hospital for consultation. She was admitted on 01/10/2017 for uncontrolled bleeding from a large breast tumor. A CT of the chest was performed in the emergency room. That study demonstrated a 6.2 x 7.3 x 7.7 cm inhomogeneously vascular mass involving the majority of the left breast along the medial aspect. There was diffuse thickening of the overlying skin observed. There was also evidence of increased markings in the lateral portion of the breast. There were small left axillary lymph nodes noted. Dimensions were not rendered. Significantly, multiple nodules were observed in the right lower lobe. The largest measured 2.6 x 1.5 cm. Increased markings were observed at the lung bases just above the bibasilar atelectasis and/or scarring seen. The mediastinum was observed to be normal as were the hilar regions. Multilevel degenerative changes were observed and thoracic spine. The bleeding was controlled with Gelfoam packing. Patient was seen by general surgery. The patient underwent an ultrasound guided biopsy of the left breast mass on 01/11/2017. 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 COMMENT Immunohistochemistry ([id number]) supports the above diagnosis. 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 Case is reviewed in consultation with Dr. Ibarra of [facility] (complete consultative report viewable in patient?s EMR). ER/MD/Rdt9scj studies are being performed on sections of tumor and the results from this study will be reported separately ([id number]). RESULTS: ANTIBODY / CLONE RESULT E-Cad (ECH-6) positive, rare cells CK8 (81blkuF57) positive, focal P63 (7JUL/4A4) negative Calponin-1 (DX351P) negative CD56 (123C3.D5) negative Chromo (LK2H10) negative Synapto (polyclonal) negative CK5-6 (D5 AND 1684) positive Ki-67 (30-9) positive, high P53 (DO-7) positive, high Vimentin (V9) positive TTF-1 (8G7G3/1) negative AE1-3 (AE1/AE3/PCK26) positive CD45 (RP2/18) negative MART-1 (A-103) negative CK7 (OV-TL12/30) positive CK20 (KS20.8) noncontributory MORPHOMETRIC ANALYSIS ER (clone 6F11) 17%, weak MD (clone 16/1E2) 0 Her-2Neu (clone CB11) 0-1+ The prognostic test for HER2 is performed on formalin-fixed paraffin embedded tissue. A 3+ (positive) staining pattern is defined as intense, homogeneous, complete, circumferential membranous staining in >10% of contiguous tumor cells. A similar weak (2+) staining pattern is interpreted as equivocal. JENNA follow-up testing is recommended for all equivocal cases. Positivity/negativity for ER/MD is reported if > or < 1% of the tumor cells are immuno- reactive, respectively. The ASCO/CAP criteria is used for scoring. Reference: Journal of Clinical Oncology, 2013; 31:9902-8858 AND 2009; 16:4834-2239. Duration of fixation: 6 Hrs; Sample Adequate: Yes. These assays have not been validated on decalcified tissues. Results should be interpreted with caution given the likelihood of false negativity on decalcified specimens. These tests were developed and their performance characteristics determined by [facility]. They may not have been cleared or approved by the U.S. Food and Drug Administration. The FDA has determined that such clearance or approval is not necessary. 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 Positive for estrogen receptors (favorable prognostic indicator). Negative for progesterone receptors (unfavorable prognostic indicator). Negative for overexpression of [id number]. Patient underwent an echocardiogram on 01/11/2017 as well. That study demonstrated normal left ventricular size and systolic function. The estimated ejection fraction was 65%. No regional wall motion abnormalities were noted. There was mild mitral valve prolapse. Trivial mitral valve insufficiency was noted. There was mild tricuspid valve insufficiency with mild focal aortic valve thickening. Right ventricular systolic pressure estimated to be 29 mmHg. The patient declined any further radiographic workup in the hospital until she had definitive proof of breast cancer via the biopsy. Previous therapy: 1) Neoadjuvant ddAC followed by Taxol x4 cycles. 2) Left modified radical mastectomy with axillary lymph node dissection 2017. 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 Changes consistent with treatment effect (presurgical neoadjuvant) therapy both in breast and in the lymph nodes. Multiple skin lesions, consistent with seborrheic keratosis. Eleven out of 11 lymph nodes negative for metastatic carcinoma. INVASIVE BREAST CANCER SUMMARY: Specimen - total breast (including nipple and skin). Procedure - total mastectomy (including nipple and skin). Lymph node sampling - axillary dissection Specimen integrity - single, intact specimen Specimen laterality - left Tumor site - lower inner quadrant Tumor size - 0.5 x 0.3 cm Tumor focality - single focus of invasive carcinoma Macroscopic and Microscopic extent of tumor: Skin - invasive carcinoma does not invade into the dermis or epidermis Nipple - ductal carcinoma does not involve the nipple epidermis. Skeletal muscle - no skeletal muscle present. Ductal carcinoma in situ (DCIS) - no ductal carcinoma in situ is present. Lobular carcinoma in situ (LCIS) - not identified Histologic type of invasive carcinoma - poorly differentiated carcinoma with basaloid features. Histologic Grade (Schneider grade): Glandular/tubular differentiation - score 3 Nuclear pleomorphism - score 3 Mitotic count - score 1 Overall grade - 2 (score of 7) Margins: Margins uninvolved by invasive carcinoma. The tumor is 2 cm away from the deep margin. Treatment effect - response to presurgical (neoadjuvant therapy) - In the breast - definite response to presurgical therapy in the invasive carcinoma. In the lymph node - definite response to presurgical therapy in the metastatic carcinoma. See comment. Lymph-Vascular invasion - not identified Dermal lymph-vascular invasion - not identified Lymph nodes: Number of sentinel lymph nodes examined - 0 Total number of lymph nodes examined (sentinel and nonsentinel) - 11 Number of lymph nodes with macrometastases, micrometastases and isolated tumor cells - 0 Distance metastasis - not applicable Additional pathologic findings: - Extensive area of necrosis, histiocytic reaction and hemorrhage (consistent with presurgical neoadjuvant chemotherapy related changes) - Skin lesions, seborrheic keratosis. - Fibrocystic changes with intraductal hyperplasia without atypia. - Microscopic hyalinized fibroadenoma (0.6 x 0.4 cm) - one lymph node with hemangioma (0.1 cm in greatest dimension). Ancillary studies - previously performed on section of tumor ([id number] / [id number]). ER - positive (38% weak to moderate) MD - negative (0%) Her2 nicko - negative (0) Her2 by dual JENNA - not performed Microcalcifications - not identified Clinical history - Please make reference to previous specimen ([id number]) left breast, core biopsy with diagnosis of poorly differentiated ductal carcinoma, basaloid type. PATHOLOGIC STAGE: pT1a(y) pN0 Mx 3) GKS 08/14/2017 Current therapy: 1) Faslodex and anastrozole. Interim history: She underwent brain MRI last week. Possible progression versus radiation necrosis was entertained. She says she is completely asymptomatic. She feels well. She is working out 3 times a week at [facility]. She remains active. She has no musculoskeletal pain. No signal in side effects from Faslodex/anastrozole. PMH, medications and allergies personally reviewed by me today. Any changes documented in appropriate section. ROS: Constitutional: No episode of fever, night sweats or shaking chills. Neuro: Denies AYALA, vertigo, dizziness. HEENT: No recent change in voice or hearing. Resp: See above. CVS: Denies PND and orthopnea. GI: Denies dysgeusia. Denies symptoms of stomatitis. Denies dysphagia and odynophagia. Denies reflux, n/v, change in bowel habits and abdominal pain. : Denies dysuria or gross hematuria. No symptoms of bladder outlet obstruction. Endo: Denies hot flashes. Denies polyuria and polydipsia. Denies heat and cold intolerance. Musculoskeletal: See above. Derm: Denies rash. Denies jaundice and diffuse pruritis. Heme: Denies unexplained bruising. Psych: Normal mood. PHYSICAL EXAM: Vitals: Blood pressure 113/65, pulse 69, temperature 36.9 ?C (98.4 ?F), temperature source Oral, weight 67.8 kg (149 lb 8 oz), SpO2 97 %. Well-appearing and in no acute distress. EYES: Sclerae are anicteric bilaterally. NECK: Supple. LYMPHATIC: There is no palpable cervical, supraclavicular or inguinal adenopathy. RESPIRATORY: Inspiratory breath sounds are of normal intensity in all murcia. CARDIOVASCULAR: Rhythm is regular. Normal intensity S1/S2. There is no gallop or murmur. BREAST: Patient declined supervisor dairy sanitation. Left mastectomy site appears healthy and there is no evidence of chest wall nodule or mass. No longer any tenderness. ABDOMEN: The abdomen is nondistended. No organomegaly. No tenderness. Extremities: Now swelling of LEs or ankles now. SKIN: No jaundice or rash. No petechiae. NEUROLOGIC: milieu manager II-XII are grossly intact. She now has normal hand heavy duty custodian strength bilaterally. Upper extremity strength is normal bilaterally. 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 -Patient presented with a neglected breast cancer that was locally advanced and had uncontrollable bleeding. In the interest of starting her treatment urgently, biopsy of the lung masses was deferred. -Post-operatively had 5 mm viable tumor. -Solitary left frontal brain metastasis. s/p GKS. No symptoms. -Reviewed overall goals of treatment. She's tolerating Faslodex and anastrozole very well with essentially no side effects. We reviewed the results of her brain MRI. She wanted my thoughts on whether or not she should go on Trental/vitamin E at the tumor board recommends. I cited some of the research that's known about it and the fact the patient seemed to tolerate it very well. -She declines every 6 month denosumab treatment. Plan: -Continue Faslodex and anastrozole. -Schedule for MRI of the brain in a month. In the meantime awaiting tumor Board recommendations versus Trental/vitamin E. -OV in about 3 months. -Scans in about 3 months. Ky Burkett DO Referring Provider: KY BURKETT [[id number]] Allergies As of Date: 02/20/2018 Noted Allergy Reaction ALCOHOL, UNSPECIFIED 01/31/2017 5 - Intolerance Comments: Recovering alcoholic TETRACYCLINE 01/31/2017 14 - Other: See Comments Comments: Thrush in mouth PHENERGAN (PROMETHAZINE HCL) 09/18/2017 1 - Mental Status Change Date Reviewed: 02/20/2018 Reviewed by: Lg (Rn) JOSÉ MIGUEL Henning - Fully Assessed Reason for Visit: Established Patient [175] Primary Visit Diagnosis:Malignant neoplasm of overlapping sites of left breast in female, estrogen receptor positive (HCC) [C50.812, Z17.0] Other Visit Diagnosis: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 (HCC) [C78.01] Order(s):TREATMENT PARAMETER-NOT NEEDED [[id number]] Order #: [id number]: 1 [facility]SING COMMUNICATION [[id number]] Order #: [id number]: 1 STANDING [] fulvestrant 500 mg injection (FASLODEX)Disp: Rfl: anastrozole (ARIMIDEX) 1 mg tabletTake 1 tablet by mouth once daily.Disp: 90 tabletRfl: 3 Follow-up and Disposition History Recorded Prescriptions as of 02/20/2018 Sig: ANASTROZOLE 1 MG TABLET Take 1 tablet by mouth once d* FULVESTRANT 250 MG/5 ML INTRA* Inject 250 mg intramuscularly* OMEPRAZOLE 20 MG CAPSULE,MAMADOU* Take 2 capsules by mouth once* LORAZEPAM 0.5 MG TABLET Take 1 tablet by mouth three * LEVOTHYROXINE 125 MCG TABLET 112 mcg once daily. ACETAMINOPHEN 325 MG TABLET Take 500 mg by mouth every 6 * METOPROLOL TARTRATE 50 MG TAB* 50 mg twice daily. ONDANSETRON 4 MG DISINTEGRATI* Take 4 mg by mouth three time* Medication notes this encounter OMEPRAZOLE 20 MG CAPSULE,DELAYED RELEASE >> Lg Henning RN, RN 02/20/2018 11:08 AM >> LG HENNING MonFeb 20, 2018 11:08 AM using daily or every other day Problem List As Of Date 02/20/2018 Noted Resolved Breast CA (HCC) [C50.919] INVALID FOR*03/21/2017 More... Malignant neoplasm of overlapping sites of left*INVALID FOR* 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 (HC*INVALID FOR* Brain metastases (HCC) [C79.31] INVALID FOR* Visit Notes: >> Cele Kim LPN MonFeb 20, 2018 11:20 AM Status: Signed Faslodex injection administered bilateral buttocks, tolerated well, no immediate adverse reactions noted. Cele Kim LPN Encounter Status:Closed by KY BURKETT DO on 02/20/18 PROGRESS Observed: 02/16/2018 Status: COMPLETED Source: [place] 9:53 AM [facility] REPOSITORY HNO ID: [id number] Author: Navdeep Garcia Service: (none) Author Type: Physician Type: Progress Notes Filed: 02/16/2018 9:59 AM Note Text: FOLLOW-UP PROGRESS NOTE Purpose of Visit: Ongoing patient management. S/p GK for brain tumor in 08/06 Vital Signs: BP 145/59 Pulse 87 Temp 36.6 ?C (97.8 ?F) (Oral) Resp 16 Wt 68 kg (149 lb 14.4 oz) SpO2 99% BMI 26.34 kg/m? Medications: Current Outpatient Prescriptions: anastrozole (ARIMIDEX) 1 mg tablet Take 1 tablet by mouth once daily. Disp: 30 tablet Rfl: 5 fulvestrant (FASLODEX) 250 mg/5 mL injection Inject 250 mg intramuscularly q 4 WEEKS. Disp: Rfl: omeprazole (PRILOSEC) 20 mg capsule Take 2 capsules by mouth once daily. Disp: 60 capsule Rfl: 2 LORazepam (ATIVAN) 0.5 mg tab Take 1 tablet by mouth three times daily as needed for up to 30 days. Disp: 45 tablet Rfl: 0 levothyroxine (SYNTHROID) 125 mcg tablet 125 mcg once daily. Disp: Rfl: acetaminophen (TYLENOL) 325 mg tablet Take 500 mg by mouth every 6 hours as needed. Disp: Rfl: metoprolol tartrate, short acting, (LOPRESSOR) 50 mg tablet 50 mg twice daily. Disp: Rfl: ondansetron orally disintegrating (ZOFRAN ODT) 4 mg disintegrating tablet Take 4 mg by mouth three times daily as needed. Disp: Rfl: 0 No current facility-administered medications for this visit. Subjective: Since last visit she has had no new complaints. She was diagnosed with NSCLC and brain metastasis and had GK as above. She denies any new neurological complaints. Systemically she is stable on Faslodex and anastrozole. She is here for follow up with a new MRI. Neurological Exam: No new findings except impaired tandem gait Other Physical Findings: No interval change New Imaging Studies: IMPRESSION: Increased size and surrounding vasogenic edema of solitary intra-axial metastatic lesion in the left frontal lobe. ? No abnormality on perfusion examination. Kitchen Helper: PSCB ? Transcribe Date/Time: Feb 12 2018 ?1:12P Dictated by : LONI JONES MD This examination was interpreted and the report reviewed and electronically signed by: JOSE HOUSER MD on Feb 12 2018 ?1:46PM ?EST New Pathology Results: None New Laboratory Studies: None Assessment: left frontal lesion is larger with increased edema and negative perfusion. I discussed differential diagnosis. 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 Since she is asymptomatic I would rather to follow her off medication. However since MRI has been getting worse lately I will present her case in our multidisciplinary tumor board for further discussion Plan: follow up in 2 months with a new MRI with perfusion, discussion in tumor board. Should call us if any new symptoms to start steroid Navdeep Garcia MD CNOV Observed: 02/15/2018 Status: COMPLETED Source: [place] 1:10 PM [facility] REPOSITORY Office Visit (NSCAMN) ANNA BARRERA ([id number]) 1940 F Date Time Provider Department 02/15/18 1:10 PM NAVDEEP GARCIA NSCAMN During your visit today, we recorded the following information about you: Temperature Pulse Respiration Blood pressure 97.8 degrees 87/minute 16/minute 145/59 Weight 68 kg Stacey Madsen Ma 02/15/2018 1:29 PM Signed Assessment interrupted by medical provider, unable to complete nursing assessment. Stacey Madsen Ma 02/15/2018 2:17 PM Signed Additional intake questions: Has the patient had nausea, vomiting, diarrhea, constipation, fatigue for > 1 week? None of the above Does the patient have a decreased appetite? No Does patient want to see a Induction Furnace Operator? No (yes to any of above refer patient to schedulers for dietitian appointment) ) Does patient have any new or increased numbness or tingling of extremities? No Is patient interested in fertility information? No Does patient need any prescription refills? No Electronically Signed By: Stacey Garcia MD 02/16/2018 9:59 AM Signed FOLLOW-UP PROGRESS NOTE Purpose of Visit: Ongoing patient management. S/p GK for brain tumor in 08/06 Vital Signs: BP 145/59 Pulse 87 Temp 36.6 ?C (97.8 ?F) (Oral) Resp 16 Wt 68 kg (149 lb 14.4 oz) SpO2 99% BMI 26.34 kg/m? Medications: Current Outpatient Prescriptions: anastrozole (ARIMIDEX) 1 mg tablet Take 1 tablet by mouth once daily. Disp: 30 tablet Rfl: 5 fulvestrant (FASLODEX) 250 mg/5 mL injection Inject 250 mg intramuscularly q 4 WEEKS. Disp: Rfl: omeprazole (PRILOSEC) 20 mg capsule Take 2 capsules by mouth once daily. Disp: 60 capsule Rfl: 2 LORazepam (ATIVAN) 0.5 mg tab Take 1 tablet by mouth three times daily as needed for up to 30 days. Disp: 45 tablet Rfl: 0 levothyroxine (SYNTHROID) 125 mcg tablet 125 mcg once daily. Disp: Rfl: acetaminophen (TYLENOL) 325 mg tablet Take 500 mg by mouth every 6 hours as needed. Disp: Rfl: metoprolol tartrate, short acting, (LOPRESSOR) 50 mg tablet 50 mg twice daily. Disp: Rfl: ondansetron orally disintegrating (ZOFRAN ODT) 4 mg disintegrating tablet Take 4 mg by mouth three times daily as needed. Disp: Rfl: 0 No current facility-administered medications for this visit. Subjective: Since last visit she has had no new complaints. She was diagnosed with NSCLC and brain metastasis and had GK as above. She denies any new neurological complaints. Systemically she is stable on Faslodex and anastrozole. She is here for follow up with a new MRI. Neurological Exam: No new findings except impaired tandem gait Other Physical Findings: No interval change New Imaging Studies: IMPRESSION: Increased size and surrounding vasogenic edema of solitary intra-axial metastatic lesion in the left frontal lobe. ? No abnormality on perfusion examination. Kitchen Helper: BUCKY ? Transcribe Date/Time: Feb 12 2018 ?1:12P Dictated by : LONI JONES MD This examination was interpreted and the report reviewed and electronically signed by: JOSE HOUSER MD on Feb 12 2018 ?1:46PM ?EST New Pathology Results: None New Laboratory Studies: None Assessment: left frontal lesion is larger with increased edema and negative perfusion. I discussed differential diagnosis. 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 Since she is asymptomatic I would rather to follow her off medication. However since MRI has been getting worse lately I will present her case in our multidisciplinary tumor board for further discussion Plan: follow up in 2 months with a new MRI with perfusion, discussion in tumor board. Should call us if any new symptoms to start steroid Navdeep Garcia MD Referring Provider: NAVDEEP GARCIA [[id number]] Allergies As of Date: 02/15/2018 Noted Allergy Reaction ALCOHOL, UNSPECIFIED 01/31/2017 5 - Intolerance Comments: Recovering alcoholic TETRACYCLINE 01/31/2017 14 - Other: See Comments Comments: Thrush in mouth PHENERGAN (PROMETHAZINE HCL) 09/18/2017 1 - Mental Status Change Date Reviewed: 02/15/2018 Reviewed by: Stacey Madsen Ma - Fully Assessed Reason for Visit: Established Patient [175] Primary Visit Diagnosis:Brain metastases (HCC) [C79.31] Prescriptions as of 02/15/2018 Sig: ANASTROZOLE 1 MG TABLET Take 1 tablet by mouth once d* FULVESTRANT 250 MG/5 ML INTRA* Inject 250 mg intramuscularly* OMEPRAZOLE 20 MG CAPSULE,MAMADOU* Take 2 capsules by mouth once* LORAZEPAM 0.5 MG TABLET Take 1 tablet by mouth three * LEVOTHYROXINE 125 MCG TABLET 125 mcg once daily. ACETAMINOPHEN 325 MG TABLET Take 500 mg by mouth every 6 * METOPROLOL TARTRATE 50 MG TAB* 50 mg twice daily. ONDANSETRON 4 MG DISINTEGRATI* Take 4 mg by mouth three time* Problem List As Of Date 02/15/2018 Noted Resolved Breast CA (HCC) [C50.919] INVALID FOR*03/21/2017 More... Malignant neoplasm of overlapping sites of left*INVALID FOR* 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 (HC*INVALID FOR* Brain metastases (HCC) [C79.31] INVALID FOR* Visit Notes: >> Stacey Madsen Ma [facility] Feb 15, 2018 1:29 PM Status: Signed Assessment interrupted by medical provider, unable to complete nursing assessment. Stacey Madsen Ma >> Stacey Madsen Ma [facility] Feb 15, 2018 2:15 PM Status: Signed Additional intake questions: Has the patient had nausea, vomiting, diarrhea, constipation, fatigue for > 1 week? None of the above Does the patient have a decreased appetite? No Does patient want to see a Induction Furnace Operator? No (yes to any of above refer patient to schedulers for dietitian appointment) ) Does patient have any new or increased numbness or tingling of extremities? No Is patient interested in fertility information? No Does patient need any prescription refills? No Electronically Signed By: Stacey Chino Madsen Ma Encounter Status:Closed by NAVDEEP GARCIA MD on 02/16/18 MRI BRAIN WO/W Observed: 02/12/2018 Status: F Source: [place] [facility] 12:15 PM [facility] REPOSITORY * * *Final Report* * * DATE OF EXAM: Feb 12 2018 12:15PM WR [id number] - MRI BRAIN WO/W IVCON / PROCEDURE REASON: multiple diagnoses * * * * Physician Interpretation * * * * EXAMINATION: MRI BRAIN WO/W IVCON CLINICAL HISTORY: Malignant neoplasm of overlapping sites of left female breast Estrogen receptor positive status (ER+) She is currently on chemotherapy - Faslodex and anastrozole. ?She is s/p GKRS to left frontal lesion on 08/14/2017 . Follow-up evaluation. TECHNIQUE: Routine brain MRI protocol without and with contrast including diffusion images. MR perfusion study was performed of the entire brain following bolus intravenous administration of gadolinium utilizing dynamic susceptibility-weighted contrast-enhanced acquisition. MQ: [id number] Contrast: 12ml mL Dotarem IV COMPARISON: MRI brain 01/04/2018 and 10/05/2017 RESULT: Acute Change: There is no evidence of restricted diffusion to suggest an acute infarct. Hemorrhage: No evidence of prior parenchymal hemorrhage on the gradient echo images. Interval resolution of hemorrhage/post treatment changes within the metastatic lesion. Mass Lesion/ Mass Effect: Redemonstrated is a solitary enhancing lesion in the left precentral gyrus which demonstrates areas of restricted diffusion. There is surrounding T2/FLAIR hyperintensity with mild localized mass effect, overall increased in size since prior. The lesion measures approximately 1.2 x 1.1 x 1.4 cm (AP x TV x CC), increased in size since 01/04/2018 measuring 0.9 x 0.9 x 1.0 cm, and significantly increased since 10/05/2017. No corresponding elevated CBV on perfusion sequences to suggest neovascularity. No other new abnormal parenchymal or leptomeningeal enhancement is noted following contrast administration. Chronic Change: Scattered punctate foci of increased T2 and FLAIR signal are noted in the supratentorial white matter which is a nonspecific finding, but likely represents minimal chronic microvascular ischemia. Parenchyma: There is mild generalized parenchymal volume loss. The brain parenchyma is otherwise within normal limits of signal intensity and morphology. Ventricles: Ventriculomegaly corresponds to the degree of parenchymal volume loss. Skull Base: Hypothalamic and pituitary region are grossly normal. Craniocervical junction is normal. No significant marrow replacement process. 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 Major intracranial arterial structures, and dural venous sinuses show typical flow void, suggesting patency by spin echo criteria. Other: The visualized paranasal sinuses and mastoid air cells are clear. The orbits and extracranial soft tissues are unremarkable. IMPRESSION: Increased size and surrounding vasogenic edema of solitary intra-axial metastatic lesion in the left frontal lobe. No abnormality on perfusion examination. Kitchen Helper: PSCB Transcribe Date/Time: Feb 12 2018 1:12P Dictated by : LONI JONES MD This examination was interpreted and the report reviewed and electronically signed by: JOSE HOUSER MD on Feb 12 2018 1:46PM EST [id number] PROGRESS Observed: 02/12/2018 Status: COMPLETED Source: [place] 12:02 PM [facility] REPOSITORY HNO ID: [id number] Author: Shala (Rt) Abbey Portillo Service: (none) Author Type: Darklight Inspector Type: Progress Notes Filed: 02/12/2018 12:02 PM Note Text: Radiology Service Progress Note PATIENT NAME: Anna Barrera DATE OF SERVICE: February 12, 2018 TIME: 12:02 PM PATIENT IDENTITY VERIFICATION COMPLETED USING TWO (2) METHODS: Patient confirmed name verbally and Date of . PATIENT GENDER DATA: Female. status: : No status: NO. PATIENT RELEVANT IMPLANT DATA REVIEWED: Yes CONTRAST INDUCED NEPHROPATHY RISK FACTORS: Patient age > 60 years CREATININE: Creatinine Date Value Ref Range Status 07/05/2017 0.57 (L) 0.58 - 0.96 mg/dL Final 01/31/2017 0.79 0.58 - 0.96 mg/dL Final Creatinine, Whole Blood (iSTAT) Date Value Ref Range Status 11/27/2017 0.60 (L) 0.70 - 1.40 mg/dL Final 07/26/2017 0.70 0.70 - 1.40 mg/dL Final 05/29/2017 0.80 0.70 - 1.40 mg/dL Final Creatinine (POCT) Date Value Ref Range Status 01/04/2018 0.60 (A) 0.7 - 1.4 mg/dL Final 10/05/2017 0.90 0.7 - 1.4 mg/dL Final eGFR-All Other Races Date Value Ref Range Status 11/27/2017 >60 . Final Comment: eGFR (Estimated GFR) Units of measure: mL/min/1.73 meters squared eGFR is derived from the reexpressed MDRD Study equation using the following parameters: serum creatinine, age, gender and race. The creatinine assay has been calibrated to be traceable to IDMS. An eGFR <60 mL/min/1.73m2 for >3 months is consistent with chronic kidney disease. Refer to KDOQI guidelines for clinical interpretation. In patients with unstable renal function, e.g. those with acute kidney injury, the eGFR may not accurately reflect actual GFR. eGFR-All Other Races (POCT) Date Value Ref Range Status 01/04/2018 >60 mL/min/1.73 m2 Final eGFR- Date Value Ref Range Status 11/27/2017 >60 Final eGFR- (POCT) Date Value Ref Range Status 01/04/2018 >60 mL/min/1.73 m2 Final P.O.C.T. RESULTS: POC done: Yes, See Lab Tab February 12, 2018 RADIOLOGIST NOTIFIED?: No ALLERGIES: Reviewed and unchanged CONTRAST ALLERGY: NO. PERIPHERAL IV ACCESS: Ambulatory: IV type: A peripheral IV was started in the Right antecubital site with a Angio cath: 20 gauge., Site assessment: Clean,Dry and Intact, Site disposition Discontinued RADIOLOGY DEPARTMENT: MR; Exam(s) Completed: Head: Routine Brain with Perfusion SIGNED BY: RT Zeny February 12, 2018 12:02 PM PROGRESS Observed: 01/04/2018 Status: COMPLETED Source: [place] 12:49 PM [facility] [place] REPOSITORY HNO ID: [id number] Author: Ana Waldrop Service: (none) Author Type: Nurse Practitioner Type: Progress Notes Filed: 01/04/2018 3:59 PM Note Text: [facility] EST OUTPATIENT VISIT CHIEF COMPLAINT/PURPOSE OF VISIT: Ongoing patient management HISTORY OF PRESENT ILLNESS: Anna Barrera is a 77 year old female who is here for a follow-up visit for her with metastatic breast cancer first diagnosed in 2017 (lung, brain). She is currently on chemotherapy - Faslodex and anastrozole - and followed by Dr. Burkett for systemic disease. She is s/p GKRS to left frontal lesion on 08/14/[address] Garcia and Dr. Renteria. She first presented with speech difficulties and right hand weakness when diagnosed with her left frontal lesion. Today, she reports doing well. She reports complete resolution of her right hand weakness. She completed a short course of OT and continues to do her home exercises. She denies any neurologic symptoms today, including headaches, dizziness, weakness, difficulty walking or speaking. She is here with her sisters today and has a new brain MRI for review. PAST MEDICAL HISTORY Diagnosis Date - Alcohol abuse, in remission - Anxiety - Atrial fibrillation (HCC) - Hypertension - Hypothyroid FAMILY HISTORY Problem Relation Age of Onset - ovarian cyst [OTHER] Mother - small cell lung cancer [OTHER] Sister - pancreatic cancer [OTHER] Maternal Grandmother - Stroke Maternal Grandfather - Thyroid Sister Current Outpatient Prescriptions: omeprazole (PRILOSEC) 20 mg capsule Take 2 capsules by mouth once daily. ondansetron orally disintegrating (ZOFRAN ODT) 4 mg disintegrating tablet Take 4 mg by mouth three times daily as needed. LORazepam (ATIVAN) 0.5 mg tab Take 1 tablet by mouth three times daily as needed for up to 30 days. anastrozole (ARIMIDEX) 1 mg tablet Take 1 tablet by mouth once daily. levothyroxine (SYNTHROID) 125 mcg tablet 125 mcg once daily. acetaminophen (TYLENOL) 325 mg tablet Take 650 mg by mouth every 6 hours as needed. metoprolol tartrate, short acting, (LOPRESSOR) 50 mg tablet 50 mg twice daily. No current facility-administered medications for this visit. REVIEW OF SYMPTOMS: Neurological : No complaint of headache No complaint of tinnitus No complaint of decreased hearing No complaint of diplopia No complaints of blurred vision. No complaint of arm/leg numbness No problem with limb coordination No complaint of syncope No complaints of seizures. No complaints of memory changes or disorientation. PHYSICAL EXAM: BP 125/58 Pulse 75 Temp 36.6 ?C (97.9 ?F) (Oral) Resp 18 Wt 66.7 kg (147 lb) SpO2 98% BMI 25.83 kg/m? Higher integrative functions: Oriented to person, place AND time. Memory: Good recent and remote. Attention Span and Concentration: Good. Language: Accurate naming of objects. Good comprehension. Fund of Knowledge: Good. 2nd CN: Full visual murcia. 3rd,4th,6th CN: Pupils (=), round, react to light, full extraocular movements. 5th CN: No decrease in facial sensation. 7th CN: Facial muscles symmetric and strong. 8th CN: Hears finger rub well bilaterally. 9th CN: Gag not tested. 10th CN: Spontaneous palate movement, full and symmetric. 11th CN: Full strength in shoulder shrug. 12th CN: Tongue protrusion full and midline. Sensation: No decrease in sensation in upper or lower limbs to touch. Musculoskeletal: Gait is normal. Negative romberg. Motor: 5/5, R=L, UE=LE. Normal muscle tone without atrophy in all limbs. Myotatic reflexes: 2/4 throughout and symmetrical. Coordination: Rapid alternating movements moderate and smooth upper extremities. IMAGING STUDIES: MRI brain 01/04/18 - IMPRESSION: Increased size of solitary intra-axial metastasis in the left frontal lobe with vasogenic edema and minimal localized mass effect since 10/05/2017. Negative MR perfusion (though lesion size is near the resolution of perfusion imaging). Recommend short-term interval follow-up (4 weeks). Kitchen Helper: BUCKY ? Transcribe Date/Time: Jan 04 2018 12:02P Dictated by : STEFF SILVA MD This examination was interpreted and the report reviewed and electronically signed by: KATIE GUTHRIE MD on Jan 04 2018 12:46PM ?EST Final Report* * * DATE OF EXAM: Jan 04 2018 12:00PM ? CAM ? 0295 ?- ?MRI BRAIN WO/W IVCON ?/ PROCEDURE REASON: Secondary malignant neoplasm of brain ?? ? * * * * Physician Interpretation * * * * ?EXAMINATION: ?MRI BRAIN WO/W IVCON CLINICAL HISTORY: Metastatic breast cancer status post gamma knife. TECHNIQUE: MR brain intracranial mass protocol without and with gadolinium. Perfusion imaging was performed. MQ: ?MRBWOW_2 MR Contrast: ?Dotarem Contrast Dose: ?13 cc Route of Administration: ?IV COMPARISON: MR brain 10/05/2017 RESULT: Acute Change: ? No evidence of an acute intracranial process. Hemorrhage: ? ?Focal susceptibility corresponding with metastatic lesion in the left precentral gyrus, compatible with hemorrhage/posttreatment change. Mass Lesion/ Mass Effect: Since 10/05/2017, significantly increased size of heterogeneously enhancing intra-axial mass centered in the subcortical white matter of the left precentral gyrus, measuring 9 x 9 mm in maximum axial dimensions (axial volumetric postcontrast T1 series 30, image 32), previously 4 mm in maximum dimension. Increased surrounding confluent T2/FLAIR hyperintensity, likely reflecting vasogenic edema. Minimal localized mass effect. On the perfusion sequences, no corresponding elevated CBV to suggest significant vascularity. No new foci of pathologic parenchymal or leptomeningeal enhancement identified elsewhere. Chronic Change: ?The scattered nonspecific punctate foci of T2/FLAIR hyperintensity in the supratentorial white matter, likely minimal chronic microvascular ischemia in view of the patient's chronological age. Parenchyma: ? Mild generalized parenchymal volume loss. Ventricles: ? ? Mild enlargement commensurate with volume loss. Skull Base: ? ?Hypothalamic and pituitary region are grossly normal. Craniocervical junction is normal. No significant marrow replacement process. Vasculature: ? 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 Major intracranial arterial structures and dural venous sinuses show typical flow void, suggesting patency by spin echo criteria. Other: ?The visualized paranasal sinuses and mastoid air cells are clear. The orbits and extracranial soft tissues are unremarkable. KPS SCORE: 90 MEDICAL DECISION MAKING/PLAN: 1. Left frontal brain lesion - Ms. Barrera is s/p GKRS on 08/14/17. Today, she appears to be doing well and denies any significant neurological complaints. The image studies show the treated lesion to be increased in size with more edema since last MRI scan with no evidence of new lesions. The MR perfusion (cerebral blood volume) imaging is negative. I have ordered a f/u MRI scan in 6 [address] Garcia will see her back. All questions and issues were addressed with the patient and she appears satisfied with the current plan. She was instructed to call if she develops any right sided symptoms including but not limited to weakness, numbness/tingling, seizures, speech difficulties. If she calls with symptoms, then would recommend starting Decadron 4mg once/day along with Pepcid 20mg once per day. Otherwise, if she remains symptom free then will re-image according to plan in 6 weeks. She states an understanding. Medicines: No Change Instructions: Continue present activity. Ana Waldrop, MSN, SHAKER SCREEN OPERATOR, SANDER AND BUFFER Nurse Practitioner cc: Navdeep Garcia MD [id number] [facility] [id number] CNOV Observed: 01/04/2018 Status: COMPLETED Source: [place] 12:10 PM [facility] REPOSITORY Office Visit (NSCAMN) ANNA BARRERA ([id number]) 1940 F Date Time Provider Department 01/04/18 12:10 PM ANA WALDROP (PATIENT SUPPORT REPRESENTATIVE) [facility] During your visit today, we recorded the following information about you: Temperature Pulse Respiration Blood pressure 97.9 degrees 75/minute 18/minute 125/58 Weight 66.7 kg Ana Waldrop, RN SHAKER SCREEN OPERATOR.SANDER AND BUFFER 01/04/2018 3:59 PM Signed [facility] EST OUTPATIENT VISIT CHIEF COMPLAINT/PURPOSE OF VISIT: Ongoing patient management HISTORY OF PRESENT ILLNESS: Anna Barrera is a 77 year old female who is here for a follow-up visit for her with metastatic breast cancer first diagnosed in 2017 (lung, brain). She is currently on chemotherapy - Faslodex and anastrozole - and followed by Dr. Burkett for systemic disease. She is s/p GKRS to left frontal lesion on 08/14/[address] Garcia and Dr. Renteria. She first presented with speech difficulties and right hand weakness when diagnosed with her left frontal lesion. Today, she reports doing well. She reports complete resolution of her right hand weakness. She completed a short course of OT and continues to do her home exercises. She denies any neurologic symptoms today, including headaches, dizziness, weakness, difficulty walking or speaking. She is here with her sisters today and has a new brain MRI for review. PAST MEDICAL HISTORY Diagnosis Date - Alcohol abuse, in remission - Anxiety - Atrial fibrillation (HCC) - Hypertension - Hypothyroid FAMILY HISTORY Problem Relation Age of Onset - ovarian cyst [OTHER] Mother - small cell lung cancer [OTHER] Sister - pancreatic cancer [OTHER] Maternal Grandmother - Stroke Maternal Grandfather - Thyroid Sister Current Outpatient Prescriptions: omeprazole (PRILOSEC) 20 mg capsule Take 2 capsules by mouth once daily. ondansetron orally disintegrating (ZOFRAN ODT) 4 mg disintegrating tablet Take 4 mg by mouth three times daily as needed. LORazepam (ATIVAN) 0.5 mg tab Take 1 tablet by mouth three times daily as needed for up to 30 days. anastrozole (ARIMIDEX) 1 mg tablet Take 1 tablet by mouth once daily. levothyroxine (SYNTHROID) 125 mcg tablet 125 mcg once daily. acetaminophen (TYLENOL) 325 mg tablet Take 650 mg by mouth every 6 hours as needed. metoprolol tartrate, short acting, (LOPRESSOR) 50 mg tablet 50 mg twice daily. No current facility-administered medications for this visit. REVIEW OF SYMPTOMS: Neurological : No complaint of headache No complaint of tinnitus No complaint of decreased hearing No complaint of diplopia No complaints of blurred vision. No complaint of arm/leg numbness No problem with limb coordination No complaint of syncope No complaints of seizures. No complaints of memory changes or disorientation. PHYSICAL EXAM: BP 125/58 Pulse 75 Temp 36.6 ?C (97.9 ?F) (Oral) Resp 18 Wt 66.7 kg (147 lb) SpO2 98% BMI 25.83 kg/m? Higher integrative functions: Oriented to person, place AND time. Memory: Good recent and remote. Attention Span and Concentration: Good. Language: Accurate naming of objects. Good comprehension. Fund of Knowledge: Good. 2nd CN: Full visual murcia. 3rd,4th,6th CN: Pupils (=), round, react to light, full extraocular movements. 5th CN: No decrease in facial sensation. 7th CN: Facial muscles symmetric and strong. 8th CN: Hears finger rub well bilaterally. 9th CN: Gag not tested. 10th CN: Spontaneous palate movement, full and symmetric. 11th CN: Full strength in shoulder shrug. 12th CN: Tongue protrusion full and midline. Sensation: No decrease in sensation in upper or lower limbs to touch. Musculoskeletal: Gait is normal. Negative romberg. Motor: 5/5, R=L, UE=LE. Normal muscle tone without atrophy in all limbs. Myotatic reflexes: 2/4 throughout and symmetrical. Coordination: Rapid alternating movements moderate and smooth upper extremities. IMAGING STUDIES: MRI brain 01/04/18 - IMPRESSION: Increased size of solitary intra-axial metastasis in the left frontal lobe with vasogenic edema and minimal localized mass effect since 10/05/2017. Negative MR perfusion (though lesion size is near the resolution of perfusion imaging). Recommend short-term interval follow-up (4 weeks). Kitchen Helper: PSCB ? Transcribe Date/Time: Jan 04 2018 12:02P Dictated by : STEFF SILVA MD This examination was interpreted and the report reviewed and electronically signed by: KATIE GUTHRIE MD on Jan 04 2018 12:46PM ?EST Final Report* * * DATE OF EXAM: Jan 04 2018 12:00PM ? CAM ? 0295 ?- ?MRI BRAIN WO/W IVCON ?/ PROCEDURE REASON: Secondary malignant neoplasm of brain ?? ? * * * * Physician Interpretation * * * * ?EXAMINATION: ?MRI BRAIN WO/W IVCON CLINICAL HISTORY: Metastatic breast cancer status post gamma knife. TECHNIQUE: MR brain intracranial mass protocol without and with gadolinium. Perfusion imaging was performed. MQ: ?MRBWOW_2 MR Contrast: ?Dotarem Contrast Dose: ?13 cc Route of Administration: ?IV COMPARISON: MR brain 10/05/2017 RESULT: Acute Change: ? No evidence of an acute intracranial process. Hemorrhage: ? ?Focal susceptibility corresponding with metastatic lesion in the left precentral gyrus, compatible with hemorrhage/posttreatment change. Mass Lesion/ Mass Effect: Since 10/05/2017, significantly increased size of heterogeneously enhancing intra-axial mass centered in the subcortical white matter of the left precentral gyrus, measuring 9 x 9 mm in maximum axial dimensions (axial volumetric postcontrast T1 series 30, image 32), previously 4 mm in maximum dimension. Increased surrounding confluent T2/FLAIR hyperintensity, likely reflecting vasogenic edema. Minimal localized mass effect. On the perfusion sequences, no corresponding elevated CBV to suggest significant vascularity. No new foci of pathologic parenchymal or leptomeningeal enhancement identified elsewhere. Chronic Change: ?The scattered nonspecific punctate foci of T2/FLAIR hyperintensity in the supratentorial white matter, likely minimal chronic microvascular ischemia in view of the patient's chronological age. Parenchyma: ? Mild generalized parenchymal volume loss. Ventricles: ? ? Mild enlargement commensurate with volume loss. Skull Base: ? ?Hypothalamic and pituitary region are grossly normal. Craniocervical junction is normal. No significant marrow replacement process. Vasculature: ? 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 Major intracranial arterial structures and dural venous sinuses show typical flow void, suggesting patency by spin echo criteria. Other: ?The visualized paranasal sinuses and mastoid air cells are clear. The orbits and extracranial soft tissues are unremarkable. KPS SCORE: 90 MEDICAL DECISION MAKING/PLAN: 1. Left frontal brain lesion - Ms. Barrera is s/p GKRS on 08/14/17. Today, she appears to be doing well and denies any significant neurological complaints. The image studies show the treated lesion to be increased in size with more edema since last MRI scan with no evidence of new lesions. The MR perfusion (cerebral blood volume) imaging is negative. I have ordered a f/u MRI scan in 6 weeks at [address] time [address] Garcia will see her back. All questions and issues were addressed with the patient and she appears satisfied with the current plan. She was instructed to call if she develops any right sided symptoms including but not limited to weakness, numbness/tingling, seizures, speech difficulties. If she calls with symptoms, then would recommend starting Decadron 4mg once/day along with Pepcid 20mg once per day. Otherwise, if she remains symptom free then will re-image according to plan in 6 weeks. She states an understanding. Medicines: No Change Instructions: Continue present activity. Ana Waldrop, MSN, SHAKER SCREEN OPERATOR, SANDER AND BUFFER Nurse Practitioner cc: Navdeep Garcia MD [address] [facility] [address] Stacey Madsen Ma 01/04/2018 1:07 PM Signed Additional intake questions: Has the patient had nausea, vomiting, diarrhea, constipation, fatigue for > 1 week? None of the above Does the patient have a decreased appetite? No Does patient want to see a Induction Furnace Operator? No (yes to any of above refer patient to schedulers for dietitian appointment) ) Does patient have any new or increased numbness or tingling of extremities? No Is patient interested in fertility information? No Does patient need any prescription refills? No Electronically Signed By: Stacey Waldrop, RN SHAKER SCREEN OPERATOR.SANDER AND BUFFER 01/04/2018 3:58 PM Signed Follow-up instructions for Anna Barrera: Left frontal brain lesion - MsAlondra Barrera is s/p GKRS on 08/14/17. Today, she appears to be doing well and denies any significant neurological complaints. The image studies show the treated lesion to be increased in size with more edema since last MRI scan with no evidence of new lesions. The MR perfusion (cerebral blood volume) imaging is negative -(which helps us look at the blood flow). A f/u MRI scan in 6 weeks has been ordered at which time Dr. Garcia will see her back. Please call if you develop any right sided symptoms including but not limited to weakness, numbness/tingling, seizures, speech difficulties. Thank you, Ana Waldrop, MSN, SHAKER SCREEN OPERATOR, SANDER AND BUFFER Nurse Practitioner Referring Provider: NAVDEEP AGRCIA [[id number]] Allergies As of Date: 01/04/2018 Noted Allergy Reaction ALCOHOL, UNSPECIFIED 01/31/2017 5 - Intolerance Comments: Recovering alcoholic TETRACYCLINE 01/31/2017 14 - Other: See Comments Comments: Thrush in mouth PHENERGAN (PROMETHAZINE HCL) 09/18/2017 1 - Mental Status Change Date Reviewed: 01/04/2018 Reviewed by: Stacey Madsen Ma - Fully Assessed Reason for Visit: Established Patient [175] Primary Visit Diagnosis:Brain metastases (HCC) [C79.31] Order(s):MRI BRAIN WO/W IVCON [[id number]] Order #: [id number] FUTURE iv contrast (will be provided with radiology test)MRI Brain Inject, intravenously, once for 1 dose.No IV access, insert saline lock prior to beginning of sedation, infusion, injection of imaging exam.Discontinue saline lock post exam. If Pt. has a central line or IVAD, may access for administration according to line specific nursing protocol.Once exam is complete flush line and de- access according to line specific nursing protocol in the MR contrast administration guidelines linkDisp: 1 EachRfl: 0 Prescriptions as of 01/04/2018 Sig: IV CONTRAST (RADIOLOGY PROCED* MRI Brain Inject, intravenous* FULVESTRANT 250 MG/5 ML INTRA* Inject 250 mg intramuscularly* OMEPRAZOLE 20 MG CAPSULE,MAMADOU* Take 2 capsules by mouth once* LORAZEPAM 0.5 MG TABLET Take 1 tablet by mouth three * ANASTROZOLE 1 MG TABLET Take 1 tablet by mouth once d* LEVOTHYROXINE 125 MCG TABLET 125 mcg once daily. ACETAMINOPHEN 325 MG TABLET Take 650 mg by mouth every 6 * METOPROLOL TARTRATE 50 MG TAB* 50 mg twice daily. ONDANSETRON 4 MG DISINTEGRATI* Take 4 mg by mouth three time* Problem List As Of Date 01/04/2018 Noted Resolved Breast CA (HCC) [C50.919] INVALID FOR*03/21/2017 More... 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 Barrera is s/p GKRS on 08/14/17. Today, she appears to be doing well and denies any significant neurological complaints. The image studies show the treated lesion to be increased in size with more edema since last MRI scan with no evidence of new lesions. The MR perfusion (cerebral blood volume) imaging is negative -(which helps us look at the blood flow). A f/u MRI scan in 6 weeks has been ordered at which time Dr. Garcia will see her back. Please call if you develop any right sided symptoms including but not limited to weakness, numbness/tingling, seizures, speech difficulties. Thank you, Ana Waldrop, MSN, SHAKER SCREEN OPERATOR, SANDER AND BUFFER Nurse Practitioner Visit Notes: >> Stacey Madsen Ma [facility] Jan 04, 2018 1:04 PM Status: Signed Additional intake questions: Has the patient had nausea, vomiting, diarrhea, constipation, fatigue for > 1 week? None of the above Does the patient have a decreased appetite? No Does patient want to see a Induction Furnace Operator? No (yes to any of above refer patient to schedulers for dietitian appointment) ) Does patient have any new or increased numbness or tingling of extremities? No Is patient interested in fertility information? No Does patient need any prescription refills? No Electronically Signed By: Stacey Madsen Ma Prescriptions ordered this encounter Disp Refills Start End IV CONTRAST (RADIOLOGY PROCEDURE) 1 Ea* 0 01/04/2018 01/05/2018 Class: In Office Sig: MRI Brain Inject, intravenously, once for 1 dose.No IV access, insert saline lock prior to beginning of sedation, infusion, injection of imaging exam.Discontinue saline lock post exam. If Pt. has a central line or IVAD, may access for administration according to line specific nursing protocol.Once exam is complete flush line and de-access according to line specific nursing protocol in the MR contrast administration guidelines link Disposition: Return in about 6 weeks (around 02/15/2018). Follow-up and Disposition History Recorded Encounter Status:Closed by ANA WALDROP CNP on 01/04/18 MRI BRAIN WO/W Observed: 01/04/2018 Status: F Source: [place] IVCON 12:00 PM [facility] REPOSITORY * * *Final Report* * * DATE OF EXAM: Jan 04 2018 12:00PM CAM 0295 - MRI BRAIN WO/W IVCON / PROCEDURE REASON: Secondary malignant neoplasm of brain * * * * Physician Interpretation * * * * EXAMINATION: MRI BRAIN WO/W IVCON CLINICAL HISTORY: Metastatic breast cancer status post gamma knife. TECHNIQUE: MR brain intracranial mass protocol without and with gadolinium. Perfusion imaging was performed. MQ: MRBWOW_2 MR Contrast: Dotarem Contrast Dose: 13 cc Route of Administration: IV COMPARISON: MR brain 10/05/2017 RESULT: Acute Change: No evidence of an acute intracranial process. Hemorrhage: Focal susceptibility corresponding with metastatic lesion in the left precentral gyrus, compatible with hemorrhage/posttreatment change. Mass Lesion/ Mass Effect: Since 10/05/2017, significantly increased size of heterogeneously enhancing intra-axial mass centered in the subcortical white matter of the left precentral gyrus, measuring 9 x 9 mm in maximum axial dimensions (axial volumetric postcontrast T1 series 30, image 32), previously 4 mm in maximum dimension. Increased surrounding confluent T2/FLAIR hyperintensity, likely reflecting vasogenic edema. Minimal localized mass effect. On the perfusion sequences, no corresponding elevated CBV to suggest significant vascularity. No new foci of pathologic parenchymal or leptomeningeal enhancement identified elsewhere. Chronic Change: The scattered nonspecific punctate foci of T2/FLAIR hyperintensity in the supratentorial white matter, likely minimal chronic microvascular ischemia in view of the patient's chronological age. Parenchyma: Mild generalized parenchymal volume loss. Ventricles: Mild enlargement commensurate with volume loss. Skull Base: Hypothalamic and pituitary region are grossly normal. Craniocervical junction is normal. No significant marrow replacement process. 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 Major intracranial arterial structures and dural venous sinuses show typical flow void, suggesting patency by spin echo criteria. Other: The visualized paranasal sinuses and mastoid air cells are clear. The orbits and extracranial soft tissues are unremarkable. IMPRESSION: Increased size of solitary intra-axial metastasis in the left frontal lobe with vasogenic edema and minimal localized mass effect since 10/05/2017. Negative MR perfusion (though lesion size is near the resolution of perfusion imaging). Recommend short-term interval follow-up (4 weeks). Kitchen Helper: BUCKY Transcribe Date/Time: Jan 04 2018 12:02P Dictated by : STEFF SILVA MD This examination was interpreted and the report reviewed and electronically signed by: KATIE GUTHRIE MD on Jan 04 2018 12:46PM EST [id number] Observed: 01/04/2018 Status: COMPLETED Source: [place] 11:54 AM [facility] REPOSITORY HNO ID: [id number] Author: Melody Hardin Service: (none) Author Type: (none) Type: Progress Notes Filed: 01/04/2018 11:55 AM Note Text: Radiology Service Progress Note PATIENT NAME: Anna Barrera DATE OF SERVICE: January 04, 2018 TIME: 11:54 AM PATIENT IDENTITY VERIFICATION COMPLETED USING TWO (2) METHODS: Patient confirmed name verbally and ID band matches.. PATIENT GENDER DATA: Female. status: : No status: NO. PATIENT RELEVANT IMPLANT DATA REVIEWED: Yes RADIOLOGY DEPARTMENT: MR; Exam(s) Completed: Head: Routine Brain with Perfusion PERIPHERAL IV DATA: Site assessment: Clean,Dry and Intact, Site disposition Discontinued SIGNED BY: Melody Goodrich-T January 04, 2018 11:54 AM PROGRESS Observed: 01/04/2018 Status: COMPLETED Source: [place] 11:13 AM [facility] REPOSITORY HNO ID: [id number] Author: Meg Rodriguez) Ren, RN Service: Radiology Author Type: Registered Nurse Type: Progress Notes Filed: 01/04/2018 11:20 AM Note Text: Radiology Service Progress Note PATIENT NAME: Anna Barrera DATE OF SERVICE: January 04, 2018 TIME: 11:13 AM PATIENT WEIGHT: 147 LBS PATIENT IDENTITY VERIFICATION COMPLETED USING TWO (2) METHODS: Patient confirmed name verbally and Date of . PATIENT GENDER DATA: Female. status: : No status: NO. CONTRAST INDUCED NEPHROPATHY RISK FACTORS: Patient age > 60 years CREATININE: Creatinine Date Value Ref Range Status 07/05/2017 0.57 (L) 0.58 - 0.96 mg/dL Final 01/31/2017 0.79 0.58 - 0.96 mg/dL Final Creatinine, Whole Blood (iSTAT) Date Value Ref Range Status 11/27/2017 0.60 (L) 0.70 - 1.40 mg/dL Final 07/26/2017 0.70 0.70 - 1.40 mg/dL Final 05/29/2017 0.80 0.70 - 1.40 mg/dL Final Creatinine (POCT) Date Value Ref Range Status 10/05/2017 0.90 0.7 - 1.4 mg/dL Final eGFR-All Other Races Date Value Ref Range Status 11/27/2017 >60 . Final Comment: eGFR (Estimated GFR) Units of measure: mL/min/1.73 meters squared eGFR is derived from the reexpressed MDRD Study equation using the following parameters: serum creatinine, age, gender and race. The creatinine assay has been calibrated to be traceable to IDMS. An eGFR <60 mL/min/1.73m2 for >3 months is consistent with chronic kidney disease. Refer to KDOQI guidelines for clinical interpretation. In patients with unstable renal function, e.g. those with acute kidney injury, the eGFR may not accurately reflect actual GFR. eGFR- Date Value Ref Range Status 11/27/2017 >60 Final P.O.C.T. RESULTS: POC done: Yes, See Lab Tab Cr 0.6/gfr >60 January 04, 2018 TREATMENT: No Hydration needed. ALLERGIES: Reviewed and unchanged CONTRAST ALLERGY: NO. IV SITE: Ambulatory: A peripheral IV was started in the Right antecubital site with a Angio cath: 22 gauge. and A Saline lock was inserted per protocol IV SITE APPEARANCE: Clean,Dry and Intact SIGNED BY: Meg Mcclure RN January 04, 2018 11:13 AM PROGRESS Observed: 01/04/2018 Status: COMPLETED Source: [place] 9:55 AM [facility] REPOSITORY HNO ID: [id number] Author: Meg Weber (Sw) Service: (none) Author Type: Chart Picker Type: Progress Notes Filed: 01/04/2018 9:57 AM Note Text: SOCIAL WORK FOLLOW UP NOTE: [facility] Date of service: January 04, 2018 Anna Barrera is being seen for a follow up social work visit. Today's visit includes: patient TOPICS ADDRESSED: coping/support; Patient called SW regarding career development engineer appointment. RICARDO informed patient she was scheduled for 03/12, but patient wants to cancel that appointment and states that she wanted to initiate the scheduling instead of having it done for her. RICARDO provided supportive active listening and apologized to patient for this. RICARDO explained that once the orders for career development engineer are put in our staff typically call the patient to schedule this, which was done yesterday, but patient was unaware the appointment was being scheduled. RICARDO stated that patient could try to contact career development engineer when she is in the office on Monday by calling the main number and asking to be transferred to her. Patient is agreeable to trying this. PLAN: Continue follow up as needed F/U APPOINTMENT: CALE Campbell Observed: 01/04/2018 Status: COMPLETED Source: [place] 12:00 AM [facility] REPOSITORY Social Work (HEMVINCENT) BRUCEANNA Garnica ([id number]) 1940 F Date Time Provider Department 01/04/18 TIA, [place] (SW) During your visit today, we recorded the following information about you: CALE Rose 01/04/2018 9:57 AM Signed SOCIAL WORK FOLLOW UP NOTE: [facility] Date of service: January 04, 2018 Anna Barrera is being seen for a follow up social work visit. Today's visit includes: patient TOPICS ADDRESSED: coping/support; Patient called SW regarding career development engineer appointment. RICARDO informed patient she was scheduled for 03/12, but patient wants to cancel that appointment and states that she wanted to initiate the scheduling instead of having it done for her. RICARDO provided supportive active listening and apologized to patient for this. RICARDO explained that once the orders for career development engineer are put in our staff typically call the patient to schedule this, which was done yesterday, but patient was unaware the appointment was being scheduled. RICARDO stated that patient could try to contact career development engineer when she is in the office on Monday by calling the main number and asking to be transferred to her. Patient is agreeable to trying this. PLAN: Continue follow up as needed F/U APPOINTMENT: PRN CALE Rose Allergies As of Date: 01/04/2018 Noted Allergy Reaction ALCOHOL, UNSPECIFIED 01/31/2017 5 - Intolerance Comments: Recovering alcoholic TETRACYCLINE 01/31/2017 14 - Other: See Comments Comments: Thrush in mouth PHENERGAN (PROMETHAZINE HCL) 09/18/2017 1 - Mental Status Change Date Reviewed: 01/03/2018 Reviewed by: Layla (Rn) JOSÉ MIGUEL Omer - Fully Assessed Reason for Visit: Social Work Services [507] Prescriptions as of 01/04/2018 Sig: OMEPRAZOLE 20 MG CAPSULE,MAMADOU* Take 2 capsules by mouth once* ONDANSETRON 4 MG DISINTEGRATI* Take 4 mg by mouth three time* LORAZEPAM 0.5 MG TABLET Take 1 tablet by mouth three * ANASTROZOLE 1 MG TABLET Take 1 tablet by mouth once d* LEVOTHYROXINE 125 MCG TABLET 125 mcg once daily. ACETAMINOPHEN 325 MG TABLET Take 650 mg by mouth every 6 * METOPROLOL TARTRATE 50 MG TAB* 50 mg twice daily. Problem List As Of Date 01/04/2018 Noted Resolved Breast CA (HCC) [C50.919] INVALID FOR*03/21/2017 More... Malignant neoplasm of overlapping sites of left*INVALID FOR* 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 (HC*INVALID FOR* Brain metastases (HCC) [C79.31] INVALID FOR* Encounter Status:Closed by MEG WEBER on 01/04/18 WANDAN Observed: 01/03/2018 Status: COMPLETED Source: [place] 12:00 AM [facility] REPOSITORY Telephone (HEMAWS) ANNA BARRERA ([id number]) 1940 F Date Time Provider Department 01/03/18 MADALYN BAGLEY (RN) JAYA During your visit today, we recorded the following information about you: Madalyn Bagley RN, RN 01/03/2018 10:57 AM Signed Patient would like to see a career development engineer and needs a referral. Placed order for consult to nutrition therapy. Please sign if correct. Madalyn Bagley RN, RN 01/03/2018 11:32 AM Signed Please call and schedule patient for an appointment with career development engineer, Anastasia Sabillon. Thank you. Abbie Meneses 01/03/2018 12:09 PM Signed Patient scheduled for 03/12. Spoke with patient and she states there is a communication issue. She requested to speak with Madalyn. Patient transferred. Allergies As of Date: 01/03/2018 Noted Allergy Reaction ALCOHOL, UNSPECIFIED 01/31/2017 5 - Intolerance Comments: Recovering alcoholic TETRACYCLINE 01/31/2017 14 - Other: See Comments Comments: Thrush in mouth PHENERGAN (PROMETHAZINE HCL) 09/18/2017 1 - Mental Status Change Date Reviewed: 12/25/2017 Reviewed by: Cele Kim LPN - Fully Assessed Reason for Visit: Care Coordination [3491] Cmt: Order request for career development engineer Primary Visit Diagnosis:Malignant neoplasm of overlapping sites of left breast in female, estrogen receptor positive (HCC) [C50.812, Z17.0] Other Visit Diagnoses: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 (HCC) [C78.01] Brain metastases (HCC) [C79.31] Order(s):CONSULT TO NUTRITION THERAPY [9020] Order #: [id number]: 1 Prescriptions as of 01/03/2018 Sig: OMEPRAZOLE 20 MG CAPSULE,MAMADOU* Take 2 capsules by mouth once* ONDANSETRON 4 MG DISINTEGRATI* Take 4 mg by mouth three time* LORAZEPAM 0.5 MG TABLET Take 1 tablet by mouth three * ANASTROZOLE 1 MG TABLET Take 1 tablet by mouth once d* LEVOTHYROXINE 125 MCG TABLET 125 mcg once daily. ACETAMINOPHEN 325 MG TABLET Take 650 mg by mouth every 6 * METOPROLOL TARTRATE 50 MG TAB* 50 mg twice daily. Problem List As Of Date 01/03/2018 Noted Resolved Breast CA (HCC) [C50.919] INVALID FOR*03/21/2017 More... Malignant neoplasm of overlapping sites of left*INVALID FOR* 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 (HC*INVALID FOR* Brain metastases (HCC) [C79.31] INVALID FOR* Encounter Status:Closed by MADALYN BAGLEY on 01/03/18 PROGRESS Observed: 01/02/2018 Status: COMPLETED Source: [place] 2:57 PM [facility] RE[facility] O ID: [id number] Author: Meg Noble) Tia Service: (none) Author Type: Chart Picker Type: Progress Notes Filed: 01/02/2018 3:01 PM Note Text: Social Work Problem Referral Note INFORMATION/REFERRAL : Anna Barrera 77 year old female was referred by [facility] Social Work for the following reason(s): person living alone PERSONS INTERVIEWED: patient INTERVENTION: Individual Counseling Affect/Mood: The patient is noted as appropriate IDENTIFIED PROBLEMS/NEEDS: Patient adjustment to illness Continue to assess/collaborate Intervention/Referral to be provided:Arrangements made for continuity of care Counseling provided for symptoms of mild depression IMPRESSION/PLAN: RICARDO met with patient to provide supportive active listening and empathy. Patient reports feeling lonely recently and states that now that she is in remission the support she was receiving during her treatment is no longer there and she feels a void now. Patient reports she is going to [employer] and is interested in a group that has started at [facility]. RICARDO discussed individual counseling with patient, but she is unsure if she wants to start this at this time. Patient remains open to this idea for the future. F/U APPOINTMENT: PRN Meg Tia, STRUCTURAL DRAFTER CNSW Observed: 01/02/2018 Status: COMPLETED Source: [place] 12:00 AM [facility] REPOSITORY Social Work (JAYA) YADIGEORGIAANNA ([id number]) 1940 F Date Time Provider Department 01/02/18 MEG WEBER (RICARDO) JAYA During your visit today, we recorded the following information about you: CALE Rose 01/02/2018 3:01 PM Signed Social Work Problem Referral Note INFORMATION/REFERRAL : Anna Barrera 77 year old female was referred by [facility] Social Work for the following reason(s): person living alone PERSONS INTERVIEWED: patient INTERVENTION: Individual Counseling Affect/Mood: The patient is noted as appropriate IDENTIFIED PROBLEMS/NEEDS: Patient adjustment to illness Continue to assess/collaborate Intervention/Referral to be provided:Arrangements made for continuity of care Counseling provided for symptoms of mild depression IMPRESSION/PLAN: RICARDO met with patient to provide supportive active listening and empathy. Patient reports feeling lonely recently and states that now that she is in remission the support she was receiving during her treatment is no longer there and she feels a void now. Patient reports she is going to [employer] groups and is interested in a group that has started at [facility]. RICARDO discussed individual counseling with patient, but she is unsure if she wants to start this at this time. Patient remains open to this idea for the future. F/U APPOINTMENT: CALE Campbell Allergies As of Date: 01/02/2018 Noted Allergy Reaction ALCOHOL, UNSPECIFIED 01/31/2017 5 - Intolerance Comments: Recovering alcoholic TETRACYCLINE 01/31/2017 14 - Other: See Comments Comments: Thrush in mouth PHENERGAN (PROMETHAZINE HCL) 09/18/2017 1 - Mental Status Change Date Reviewed: 12/25/2017 Reviewed by: Cele Kim LPN - Fully Assessed Reason for Visit: Social Work Services [507] Prescriptions as of 01/02/2018 Sig: OMEPRAZOLE 20 MG CAPSULE,MAMADOU* Take 2 capsules by mouth once* ONDANSETRON 4 MG DISINTEGRATI* Take 4 mg by mouth three time* LORAZEPAM 0.5 MG TABLET Take 1 tablet by mouth three * ANASTROZOLE 1 MG TABLET Take 1 tablet by mouth once d* LEVOTHYROXINE 125 MCG TABLET 125 mcg once daily. ACETAMINOPHEN 325 MG TABLET Take 650 mg by mouth every 6 * METOPROLOL TARTRATE 50 MG TAB* 50 mg twice daily. Problem List As Of Date 01/02/2018 Noted Resolved Breast CA (HCC) [C50.919] INVALID FOR*03/21/2017 More... Malignant neoplasm of overlapping sites of left*INVALID FOR* 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 (HC*INVALID FOR* Brain metastases (HCC) [C79.31] INVALID FOR* Encounter Status:Closed by MEG WEBER on 01/02/18 PROGRESS Observed: 12/04/2017 Status: COMPLETED Source: [place] 10:40 AM [facility] REPOSITORY O ID: [id number] Author: Ky Burkett Service: (none) Author Type: Physician Type: Progress Notes Filed: 12/04/2017 11:01 AM Note Text: Diagnosis: 1) Breast cancer. HPI: Patient is a 77-year-old female whom I initially saw in the hospital for consultation. She was admitted on 01/10/2017 for uncontrolled bleeding from a large breast tumor. A CT of the chest was performed in the emergency room. That study demonstrated a 6.2 x 7.3 x 7.7 cm inhomogeneously vascular mass involving the majority of the left breast along the medial aspect. There was diffuse thickening of the overlying skin observed. There was also evidence of increased markings in the lateral portion of the breast. There were small left axillary lymph nodes noted. Dimensions were not rendered. Significantly, multiple nodules were observed in the right lower lobe. The largest measured 2.6 x 1.5 cm. Increased markings were observed at the lung bases just above the bibasilar atelectasis and/or scarring seen. The mediastinum was observed to be normal as were the hilar regions. Multilevel degenerative changes were observed and thoracic spine. The bleeding was controlled with Gelfoam packing. Patient was seen by general surgery. The patient underwent an ultrasound guided biopsy of the left breast mass on 01/11/2017. 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 COMMENT Immunohistochemistry ([id number]) supports the above diagnosis. 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 Case is reviewed in consultation with Dr. Ibarra of [facility] (complete consultative report viewable in patient?s EMR). ER/MD/Xpr8thv studies are being performed on sections of tumor and the results from this study will be reported separately ([id number]). RESULTS: ANTIBODY / CLONE RESULT E-Cad (ECH-6) positive, rare cells CK8 (99nxccL21) positive, focal P63 (7JUL/4A4) negative Calponin-1 (FB058D) negative CD56 (123C3.D5) negative Chromo (LK2H10) negative Synapto (polyclonal) negative CK5-6 (D5 AND 1684) positive Ki-67 (30-9) positive, high P53 (DO-7) positive, high Vimentin (V9) positive TTF-1 (8G7G3/1) negative AE1-3 (AE1/AE3/PCK26) positive CD45 (RP2/18) negative MART-1 (A-103) negative CK7 (OV-TL12/30) positive CK20 (KS20.8) noncontributory MORPHOMETRIC ANALYSIS ER (clone 6F11) 17%, weak MD (clone 16/1E2) 0 Her-2Neu (clone CB11) 0-1+ The prognostic test for HER2 is performed on formalin-fixed paraffin embedded tissue. A 3+ (positive) staining pattern is defined as intense, homogeneous, complete, circumferential membranous staining in >10% of contiguous tumor cells. A similar weak (2+) staining pattern is interpreted as equivocal. JENNA follow-up testing is recommended for all equivocal cases. Positivity/negativity for ER/MD is reported if > or < 1% of the tumor cells are immuno- reactive, respectively. The ASCO/CAP criteria is used for scoring. Reference: Journal of Clinical Oncology, 2013; 31:6523-7461 AND 2009; 16:0462-9929. Duration of fixation: 6 Hrs; Sample Adequate: Yes. These assays have not been validated on decalcified tissues. Results should be interpreted with caution given the likelihood of false negativity on decalcified specimens. These tests were developed and their performance characteristics determined by [facility]. They may not have been cleared or approved by the U.S. Food and Drug Administration. The FDA has determined that such clearance or approval is not necessary. 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 Positive for estrogen receptors (favorable prognostic indicator). Negative for progesterone receptors (unfavorable prognostic indicator). Negative for overexpression of VIX3cez. Patient underwent an echocardiogram on 01/11/2017 as well. That study demonstrated normal left ventricular size and systolic function. The estimated ejection fraction was 65%. No regional wall motion abnormalities were noted. There was mild mitral valve prolapse. Trivial mitral valve insufficiency was noted. There was mild tricuspid valve insufficiency with mild focal aortic valve thickening. Right ventricular systolic pressure estimated to be 29 mmHg. The patient declined any further radiographic workup in the hospital until she had definitive proof of breast cancer via the biopsy. Previous therapy: 1) Neoadjuvant ddAC followed by Taxol x4 cycles. 2) Left modified radical mastectomy with axillary lymph node dissection 2017. 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 Changes consistent with treatment effect (presurgical neoadjuvant) therapy both in breast and in the lymph nodes. Multiple skin lesions, consistent with seborrheic keratosis. Eleven out of 11 lymph nodes negative for metastatic carcinoma. INVASIVE BREAST CANCER SUMMARY: Specimen - total breast (including nipple and skin). Procedure - total mastectomy (including nipple and skin). Lymph node sampling - axillary dissection Specimen integrity - single, intact specimen Specimen laterality - left Tumor site - lower inner quadrant Tumor size - 0.5 x 0.3 cm Tumor focality - single focus of invasive carcinoma Macroscopic and Microscopic extent of tumor: Skin - invasive carcinoma does not invade into the dermis or epidermis Nipple - ductal carcinoma does not involve the nipple epidermis. Skeletal muscle - no skeletal muscle present. Ductal carcinoma in situ (DCIS) - no ductal carcinoma in situ is present. Lobular carcinoma in situ (LCIS) - not identified Histologic type of invasive carcinoma - poorly differentiated carcinoma with basaloid features. Histologic Grade (Elena grade): Glandular/tubular differentiation - score 3 Nuclear pleomorphism - score 3 Mitotic count - score 1 Overall grade - 2 (score of 7) Margins: Margins uninvolved by invasive carcinoma. The tumor is 2 cm away from the deep margin. Treatment effect - response to presurgical (neoadjuvant therapy) - In the breast - definite response to presurgical therapy in the invasive carcinoma. In the lymph node - definite response to presurgical therapy in the metastatic carcinoma. See comment. Lymph-Vascular invasion - not identified Dermal lymph-vascular invasion - not identified Lymph nodes: Number of sentinel lymph nodes examined - 0 Total number of lymph nodes examined (sentinel and nonsentinel) - 11 Number of lymph nodes with macrometastases, micrometastases and isolated tumor cells - 0 Distance metastasis - not applicable Additional pathologic findings: - Extensive area of necrosis, histiocytic reaction and hemorrhage (consistent with presurgical neoadjuvant chemotherapy related changes) - Skin lesions, seborrheic keratosis. - Fibrocystic changes with intraductal hyperplasia without atypia. - Microscopic hyalinized fibroadenoma (0.6 x 0.4 cm) - one lymph node with hemangioma (0.1 cm in greatest dimension). Ancillary studies - previously performed on section of tumor ([id number] / [id number]). ER - positive (38% weak to moderate) MD - negative (0%) Her2 nicko - negative (0) Her2 by dual JENNA - not performed Microcalcifications - not identified Clinical history - Please make reference to previous specimen ([id number]) left breast, core biopsy with diagnosis of poorly differentiated ductal carcinoma, basaloid type. PATHOLOGIC STAGE: pT1a(y) pN0 Mx 3) GKS 08/14/2017 Current therapy: 1) Faslodex and anastrozole. Interim history: She's doing quite well. She is having an occasional minor hot flash but this is not bothersome to her. No other side effects from Faslodex and/or anastrozole. Several weeks ago she bent over and had the onset of acute pain on the upper left part of her chest. She was evaluated by the PA at her surgeons office and was thought to have a muscular skeletal strain. The pain has gotten better since she is not doing as much activity with her arms such as lifting and pulling. The other day she took the trash out medics exacerbated the pain. Otherwise she's had no acute illnesses since last seen. She has no complains of muscular skeletal pain otherwise. PMH, medications and allergies personally reviewed by me today. Any changes documented in appropriate section. ROS: Constitutional: No episode of fever, night sweats or shaking chills. Neuro: Denies AYALA, vertigo, dizziness. HEENT: No recent change in voice or hearing. Resp: See above. CVS: Denies PND and orthopnea. GI: Denies dysgeusia. Denies symptoms of stomatitis. Denies dysphagia and odynophagia. Denies reflux, n/v, change in bowel habits and abdominal pain. : Denies dysuria or gross hematuria. No symptoms of bladder outlet obstruction. Endo: Denies hot flashes. Denies polyuria and polydipsia. Denies heat and cold intolerance. Musculoskeletal: See above. Derm: Denies rash. Denies jaundice and diffuse pruritis. Heme: Denies unexplained bruising. Psych: Normal mood. PHYSICAL EXAM: Vitals: Blood pressure 130/62, pulse 73, temperature 36.3 ?C (97.3 ?F), temperature source Oral, weight 66.5 kg (146 lb 8 oz). Well-appearing and in no acute distress. EYES: Sclerae are anicteric bilaterally. NECK: Supple. LYMPHATIC: There is no palpable cervical, supraclavicular or inguinal adenopathy. RESPIRATORY: Inspiratory breath sounds are of normal intensity in all murcia. CARDIOVASCULAR: Rhythm is regular. Normal intensity S1/S2. There is no gallop or murmur. BREAST: Left mastectomy site appears healthy and there is no evidence of chest wall nodule or mass. There is tenderness without crepitus along the area of the seventh rib laterally and anteriorly. ABDOMEN: The abdomen is nondistended. No organomegaly. No tenderness. Extremities: Now swelling of LEs or ankles now. SKIN: No jaundice or rash. No petechiae. NEUROLOGIC: milieu manager II-XII are grossly intact. She now has normal hand heavy duty custodian strength bilaterally. Upper extremity strength is normal bilaterally. 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 -Patient presented with a neglected breast cancer that was locally advanced and had uncontrollable bleeding. In the interest of starting her treatment urgently, biopsy of the lung masses was deferred. -Post-operatively had 5 mm viable tumor. -Solitary left frontal brain metastasis. s/p GKS. Minimal residual symptoms presently. -I personally reviewed CT images and independently verified and agreed with the radiologist's findings. Minimal and stable metastasis right lower lobe. Bone scan suggests rib fracture as cause of her chest pain. Plan: -Continue Faslodex and anastrozole. -Can get denosumab 60 mg q 6 months. Discussed this again with her today. She will make her dental appointment -Schedule for MRI of the brain in several weeks at [facility]. -OV in about 3 months. -Scans in about 6 months. Ky Burkett DO CNOVSP Observed: 12/04/2017 Status: COMPLETED Source: [place] 10:30 AM [facility] REPOSITORY Visit (SP) Office (JAYA) ANNA BARRERA ([id number]) 1940 F Date Time Provider Department 12/04/17 10:30 AM KY BURKETT During your visit today, we recorded the following information about you: Temperature Pulse Blood pressure Weight 97.3 degrees 73/minute 130/62 66.5 kg Ky Burkett DO 12/04/2017 11:01 AM Signed Diagnosis: 1) Breast cancer. HPI: Patient is a 77-year-old female whom I initially saw in the hospital for consultation. She was admitted on 01/10/2017 for uncontrolled bleeding from a large breast tumor. A CT of the chest was performed in the emergency room. That study demonstrated a 6.2 x 7.3 x 7.7 cm inhomogeneously vascular mass involving the majority of the left breast along the medial aspect. There was diffuse thickening of the overlying skin observed. There was also evidence of increased markings in the lateral portion of the breast. There were small left axillary lymph nodes noted. Dimensions were not rendered. Significantly, multiple nodules were observed in the right lower lobe. The largest measured 2.6 x 1.5 cm. Increased markings were observed at the lung bases just above the bibasilar atelectasis and/or scarring seen. The mediastinum was observed to be normal as were the hilar regions. Multilevel degenerative changes were observed and thoracic spine. The bleeding was controlled with Gelfoam packing. Patient was seen by general surgery. The patient underwent an ultrasound guided biopsy of the left breast mass on 01/11/2017. 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 COMMENT Immunohistochemistry ([id number]) supports the above diagnosis. 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 Case is reviewed in consultation with Dr. Ibarra of [facility] (complete consultative report viewable in patient?s EMR). ER/MD/Cew8mjj studies are being performed on sections of tumor and the results from this study will be reported separately ([id number]). RESULTS: ANTIBODY / CLONE RESULT E-Cad (ECH-6) positive, rare cells CK8 (65kaenB75) positive, focal P63 (7JUL/4A4) negative Calponin-1 (SB178T) negative CD56 (123C3.D5) negative Chromo (LK2H10) negative Synapto (polyclonal) negative CK5-6 (D5 AND 1684) positive Ki-67 (30-9) positive, high P53 (DO-7) positive, high Vimentin (V9) positive TTF-1 (8G7G3/1) negative AE1-3 (AE1/AE3/PCK26) positive CD45 (RP2/18) negative MART-1 (A-103) negative CK7 (OV-TL12/30) positive CK20 (KS20.8) noncontributory MORPHOMETRIC ANALYSIS ER (clone 6F11) 17%, weak MD (clone 16/1E2) 0 Her-2Neu (clone CB11) 0-1+ The prognostic test for HER2 is performed on formalin-fixed paraffin embedded tissue. A 3+ (positive) staining pattern is defined as intense, homogeneous, complete, circumferential membranous staining in >10% of contiguous tumor cells. A similar weak (2+) staining pattern is interpreted as equivocal. JENNA follow-up testing is recommended for all equivocal cases. Positivity/negativity for ER/MD is reported if > or < 1% of the tumor cells are immuno- reactive, respectively. The ASCO/CAP criteria is used for scoring. Reference: Journal of Clinical Oncology, 2013; 31:1572-0879 AND 2010; 16:2118-9027. Duration of fixation: 6 Hrs; Sample Adequate: Yes. These assays have not been validated on decalcified tissues. Results should be interpreted with caution given the likelihood of false negativity on decalcified specimens. These tests were developed and their performance characteristics determined by [facility]. They may not have been cleared or approved by the U.S. Food and Drug Administration. The FDA has determined that such clearance or approval is not necessary. 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 Positive for estrogen receptors (favorable prognostic indicator). Negative for progesterone receptors (unfavorable prognostic indicator). Negative for overexpression of DNX3qrv. Patient underwent an echocardiogram on 01/11/2017 as well. That study demonstrated normal left ventricular size and systolic function. The estimated ejection fraction was 65%. No regional wall motion abnormalities were noted. There was mild mitral valve prolapse. Trivial mitral valve insufficiency was noted. There was mild tricuspid valve insufficiency with mild focal aortic valve thickening. Right ventricular systolic pressure estimated to be 29 mmHg. The patient declined any further radiographic workup in the hospital until she had definitive proof of breast cancer via the biopsy. Previous therapy: 1) Neoadjuvant ddAC followed by Taxol x4 cycles. 2) Left modified radical mastectomy with axillary lymph node dissection 2017. 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 Changes consistent with treatment effect (presurgical neoadjuvant) therapy both in breast and in the lymph nodes. Multiple skin lesions, consistent with seborrheic keratosis. Eleven out of 11 lymph nodes negative for metastatic carcinoma. INVASIVE BREAST CANCER SUMMARY: Specimen - total breast (including nipple and skin). Procedure - total mastectomy (including nipple and skin). Lymph node sampling - axillary dissection Specimen integrity - single, intact specimen Specimen laterality - left Tumor site - lower inner quadrant Tumor size - 0.5 x 0.3 cm Tumor focality - single focus of invasive carcinoma Macroscopic and Microscopic extent of tumor: Skin - invasive carcinoma does not invade into the dermis or epidermis Nipple - ductal carcinoma does not involve the nipple epidermis. Skeletal muscle - no skeletal muscle present. Ductal carcinoma in situ (DCIS) - no ductal carcinoma in situ is present. Lobular carcinoma in situ (LCIS) - not identified Histologic type of invasive carcinoma - poorly differentiated carcinoma with basaloid features. Histologic Grade (Schneider grade): Glandular/tubular differentiation - score 3 Nuclear pleomorphism - score 3 Mitotic count - score 1 Overall grade - 2 (score of 7) Margins: Margins uninvolved by invasive carcinoma. The tumor is 2 cm away from the deep margin. Treatment effect - response to presurgical (neoadjuvant therapy) - In the breast - definite response to presurgical therapy in the invasive carcinoma. In the lymph node - definite response to presurgical therapy in the metastatic carcinoma. See comment. Lymph-Vascular invasion - not identified Dermal lymph-vascular invasion - not identified Lymph nodes: Number of sentinel lymph nodes examined - 0 Total number of lymph nodes examined (sentinel and nonsentinel) - 11 Number of lymph nodes with macrometastases, micrometastases and isolated tumor cells - 0 Distance metastasis - not applicable Additional pathologic findings: - Extensive area of necrosis, histiocytic reaction and hemorrhage (consistent with presurgical neoadjuvant chemotherapy related changes) - Skin lesions, seborrheic keratosis. - Fibrocystic changes with intraductal hyperplasia without atypia. - Microscopic hyalinized fibroadenoma (0.6 x 0.4 cm) - one lymph node with hemangioma (0.1 cm in greatest dimension). Ancillary studies - previously performed on section of tumor ([id number] / [id number]). ER - positive (38% weak to moderate) MD - negative (0%) Her2 nicko - negative (0) Her2 by dual JENNA - not performed Microcalcifications - not identified Clinical history - Please make reference to previous specimen ([id number]) left breast, core biopsy with diagnosis of poorly differentiated ductal carcinoma, basaloid type. PATHOLOGIC STAGE: pT1a(y) pN0 Mx 3) GKS 08/14/2017 Current therapy: 1) Faslodex and anastrozole. Interim history: She's doing quite well. She is having an occasional minor hot flash but this is not bothersome to her. No other side effects from Faslodex and/or anastrozole. Several weeks ago she bent over and had the onset of acute pain on the upper left part of her chest. She was evaluated by the PA at her surgeons office and was thought to have a muscular skeletal strain. The pain has gotten better since she is not doing as much activity with her arms such as lifting and pulling. The other day she took the trash out medics exacerbated the pain. Otherwise she's had no acute illnesses since last seen. She has no complains of muscular skeletal pain otherwise. PMH, medications and allergies personally reviewed by me today. Any changes documented in appropriate section. ROS: Constitutional: No episode of fever, night sweats or shaking chills. Neuro: Denies AYALA, vertigo, dizziness. HEENT: No recent change in voice or hearing. Resp: See above. CVS: Denies PND and orthopnea. GI: Denies dysgeusia. Denies symptoms of stomatitis. Denies dysphagia and odynophagia. Denies reflux, n/v, change in bowel habits and abdominal pain. : Denies dysuria or gross hematuria. No symptoms of bladder outlet obstruction. Endo: Denies hot flashes. Denies polyuria and polydipsia. Denies heat and cold intolerance. Musculoskeletal: See above. Derm: Denies rash. Denies jaundice and diffuse pruritis. Heme: Denies unexplained bruising. Psych: Normal mood. PHYSICAL EXAM: Vitals: Blood pressure 130/62, pulse 73, temperature 36.3 ?C (97.3 ?F), temperature source Oral, weight 66.5 kg (146 lb 8 oz). Well-appearing and in no acute distress. EYES: Sclerae are anicteric bilaterally. NECK: Supple. LYMPHATIC: There is no palpable cervical, supraclavicular or inguinal adenopathy. RESPIRATORY: Inspiratory breath sounds are of normal intensity in all murcia. CARDIOVASCULAR: Rhythm is regular. Normal intensity S1/S2. There is no gallop or murmur. BREAST: Left mastectomy site appears healthy and there is no evidence of chest wall nodule or mass. There is tenderness without crepitus along the area of the seventh rib laterally and anteriorly. ABDOMEN: The abdomen is nondistended. No organomegaly. No tenderness. Extremities: Now swelling of LEs or ankles now. SKIN: No jaundice or rash. No petechiae. NEUROLOGIC: milieu manager II-XII are grossly intact. She now has normal hand heavy duty custodian strength bilaterally. Upper extremity strength is normal bilaterally. 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 -Patient presented with a neglected breast cancer that was locally advanced and had uncontrollable bleeding. In the interest of starting her treatment urgently, biopsy of the lung masses was deferred. -Post-operatively had 5 mm viable tumor. -Solitary left frontal brain metastasis. s/p GKS. Minimal residual symptoms presently. -I personally reviewed CT images and independently verified and agreed with the radiologist's findings. Minimal and stable metastasis right lower lobe. Bone scan suggests rib fracture as cause of her chest pain. Plan: -Continue Faslodex and anastrozole. -Can get denosumab 60 mg q 6 months. Discussed this again with her today. She will make her dental appointment -Schedule for MRI of the brain in several weeks at main campus. -OV in about 3 months. -Scans in about 6 months. Ky Burkett DO Referring Provider: KY BURKETT [[id number]] Allergies As of Date: 12/04/2017 Noted Allergy Reaction ALCOHOL, UNSPECIFIED 01/31/2017 5 - Intolerance Comments: Recovering alcoholic TETRACYCLINE 01/31/2017 14 - Other: See Comments Comments: Thrush in mouth PHENERGAN (PROMETHAZINE HCL) 09/18/2017 1 - Mental Status Change Date Reviewed: 12/04/2017 Reviewed by: Mana Heredia RN, RN - Fully Assessed Reason for Visit: Established Patient [175] Primary Visit Diagnosis:Malignant neoplasm of overlapping sites of left breast in female, estrogen receptor positive (HCC) [C50.812, Z17.0] Other Visit Diagnoses: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 ACETAMINOPHEN 325 MG TABLET Take 650 mg by mouth every 6 * METOPROLOL TARTRATE 50 MG TAB* 50 mg twice daily. Problem List As Of Date 12/04/2017 Noted Resolved Breast CA (HCC) [C50.919] INVALID FOR*03/21/2017 More... Malignant neoplasm of overlapping sites of left*INVALID FOR* 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 (HC*INVALID FOR* Brain metastases (HCC) [C79.31] INVALID FOR* Encounter Status:Closed by KY BURKETT DO on 12/04/17 PROGRESS Observed: 11/29/2017 Status: COMPLETED Source: [place] 2:53 PM [facility] REPOSITORY HNO ID: [id number] Author: Mariely Bartlett Multigig Service: (none) Author Type: (none) Type: Progress Notes Filed: 11/29/2017 2:54 PM Note Text: RADIOLOGY SERVICE PROGRESS NOTE SERVICE DATE: 11/29/2017 SERVICE TIME: 2:53 PM PATIENT IDENTITY VERIFICATION COMPLETED USING TWO (2) METHODS: Patient confirmed name and Date of verbally. PATIENT GENDER DATA: .female : No ALLERGIES: Reviewed and unchanged MEDICATIONS REVIEWED: Yes PATIENT RELEVANT IMPLANT DATA REVIEWED: Not Applicable CREATININE: Creatinine Date Value Ref Range Status 07/05/2017 0.57 (L) 0.58 - 0.96 mg/dL Final 01/31/2017 0.79 0.58 - 0.96 mg/dL Final Creatinine, Whole Blood (iSTAT) Date Value Ref Range Status 11/27/2017 0.60 (L) 0.70 - 1.40 mg/dL Final 07/26/2017 0.70 0.70 - 1.40 mg/dL Final 05/29/2017 0.80 0.70 - 1.40 mg/dL Final Creatinine (POCT) Date Value Ref Range Status 10/05/2017 0.90 0.7 - 1.4 mg/dL Final eGFR-All Other Races Date Value Ref Range Status 11/27/2017 >60 . Final Comment: eGFR (Estimated GFR) Units of measure: mL/min/1.73 meters squared eGFR is derived from the reexpressed MDRD Study equation using the following parameters: serum creatinine, age, gender and race. The creatinine assay has been calibrated to be traceable to IDMS. An eGFR <60 mL/min/1.73m2 for >3 months is consistent with chronic kidney disease. Refer to KDOQI guidelines for clinical interpretation. In patients with unstable renal function, e.g. those with acute kidney injury, the eGFR may not accurately reflect actual GFR. eGFR- Date Value Ref Range Status 11/27/2017 >60 Final P.O.C.T. RESULTS: N/A November 29, [address] PERFORMED: No IV SITE: Ambulatory: TN only - direct IV injection in the Right antecubital site POST EXAM PIV STATUS: Discontinued PROCEDURE TYPE: NM INJECT: Whole Body Bone Scan. 20.1 mCi Tc99m MDP. No other medications given.. ADMINISTRATION TIME: 10:05 PATIENT DISCHARGED TO: Ambulatory patient, left TN department area. A Diagnostic radioactive procedure has taken place, with no further precautions necessary other than routine body substance precautions. More information regarding radiation safety can be found using this link: [email or web address] SIGNATURE: Mariely Potter PATIENT NAME: Anna Barrera DATE: November 29, 2017 TIME: 2:53 PM PAGER/CONTACT #: [place] BONE WHOLE BODY Observed: 11/29/2017 Status: F Source: [place] 1:45 PM [facility] REPOSITORY * * *Final Report* * * DATE OF EXAM: Nov 29 2017 1:45PM LIN 001[place] - [place] BONE WHOLE BODY / PROCEDURE REASON: Left Breast CA with lung mets * * * * Physician Interpretation * * * * WHOLE BODY BONE SCAN (11/29/2017): HISTORY: Carcinoma of the breast. TECHNIQUE: 20.1 mCi Tc-99m MDP IV, followed by planar whole body imaging in both the anterior and the posterior projections. Planar spot images of the head, neck and chest were also obtained. COMPARISON BONE SCAN: Whole body bone scan of 02/03/2017. CORRELATION IMAGING STUDIES: CT scan of the chest, abdomen and pelvis 11/27/2017. RESULT: New increased uptake seen involving the anterior left seventh rib. Healing rib fracture is noted in this location on the current CT. Similarly, increased focal uptake is seen involving the posterolateral left seventh rib consistent with healing fracture. Arthritic uptake is seen in the region of both feet. Arthritic uptake involves the mid cervical spine on the right. Mildly increased uptake seen in the region of the left sacroiliac joint inferiorly consistent with arthritic change. No areas of abnormal focal, regional or segmental osseous uptake are seen to suggest the presence of osseous metastatic lesions. IMPRESSION: NO SCINTIGRAPHIC EVIDENCE FOR OSSEOUS METASTATIC DISEASE. Healing rib fractures posterolateral left seventh rib and anterior left seventh rib Kitchen Helper[facility] Transcribe Date/Time: Nov 29 2017 3:24P Dictated by : SHY PATINO MD This examination was interpreted and the report reviewed and electronically signed by: SHY PATINO MD on Nov 29 2017 3:27PM EST [id number] PROGRESS Observed: 11/27/2017 Status: COMPLETED Source: [place] 3:59 PM [facility] REPOSITORY HNO ID: [id number] Author: Delphine Sequeira Ct Service: (none) Author Type: (none) Type: Progress Notes Filed: 11/27/2017 4:00 PM Note Text: Radiology Service Progress Note PATIENT NAME: Anna Barrera DATE OF SERVICE: November 27, 2017 TIME: 3:59 PM PATIENT IDENTITY VERIFICATION COMPLETED USING TWO (2) METHODS: Patient confirmed name verbally and Date of . PATIENT GENDER DATA: Female. status: : No status: NO. PATIENT RELEVANT IMPLANT DATA REVIEWED: Not Applicable CONTRAST INDUCED NEPHROPATHY RISK FACTORS: Patient age > 60 years CREATININE: Creatinine Date Value Ref Range Status 07/05/2017 0.57 (L) 0.58 - 0.96 mg/dL Final 01/31/2017 0.79 0.58 - 0.96 mg/dL Final Creatinine, Whole Blood (iSTAT) Date Value Ref Range Status 11/27/2017 0.60 (L) 0.70 - 1.40 mg/dL Final 07/26/2017 0.70 0.70 - 1.40 mg/dL Final 05/29/2017 0.80 0.70 - 1.40 mg/dL Final Creatinine (POCT) Date Value Ref Range Status 10/05/2017 0.90 0.7 - 1.4 mg/dL Final eGFR-All Other Races Date Value Ref Range Status 11/27/2017 >60 . Final Comment: eGFR (Estimated GFR) Units of measure: mL/min/1.73 meters squared eGFR is derived from the reexpressed MDRD Study equation using the following parameters: serum creatinine, age, gender and race. The creatinine assay has been calibrated to be traceable to IDMS. An eGFR <60 mL/min/1.73m2 for >3 months is consistent with chronic kidney disease. Refer to KDOQI guidelines for clinical interpretation. In patients with unstable renal function, e.g. those with acute kidney injury, the eGFR may not accurately reflect actual GFR. eGFR- Date Value Ref Range Status 11/27/2017 >60 Final P.O.C.T. RESULTS: POC done: Yes, See Lab Tab November 27, 2017 RADIOLOGIST NOTIFIED?: No ALLERGIES: Reviewed and unchanged CONTRAST ALLERGY: NO. PERIPHERAL IV ACCESS: Ambulatory: IV type: A peripheral IV was started in the Right antecubital site with a Angio cath: 22 gauge., Site assessment: Clean,Dry and Intact, Site disposition Discontinued RADIOLOGY DEPARTMENT: CT; Exam(s) Completed: Chest Abdomen Pelvis SIGNED BY: Delphine Sequeira Ct November 27, 2017 3:[address] ABD/PEL W IVCON Observed: 11/27/2017 Status: F Source: [place] 3:04 PM [facility] REPOSITORY * * *Final Report* * * DATE OF EXAM: Nov 27 2017 3:04PM [facility] 0530 - CT ABD/PEL W IVCON / PROCEDURE REASON: multiple diagnoses * * * * Physician Interpretation * * * * EXAMINATION: CT ABDOMEN AND PELVIS WITH IV CONTRAST CLINICAL HISTORY: Breast cancer TECHNIQUE: CT of the abdomen and pelvis was performed using standard technique, scanning from just above the dome of the diaphragm to the symphysis pubis. MQ: CTAP_3 Contrast: IV: 135 ml of Omnipaque 300 Oral: 50 ml of 50ML Omnipaque [address] Radiation dose: Integrated Dose-length product (DLP) for this visit = 713 mGy*cm. CT Dose Reduction Employed: Automated exposure control (AEC) COMPARISON: 02/03/2017 RESULT: Liver: There are few stable low-attenuation hepatic densities. Largest posterior dome RIGHT hepatic lobe 1.2 cm in diameter. Biliary: No bile duct dilation. Gallbladder is unremarkable. Spleen: Stable lobulated splenic mass 1.2 centimeters in diameter. No splenomegaly. Pancreas: No mass or duct dilation. Adrenals: No mass. Kidneys: Subcentimeter lesions that are too small to characterize but likely benign. GI tract: No dilation or wall thickening. Lymph nodes: No abdominal or pelvic lymphadenopathy. Mesentery/Peritoneum: No ascites or mass. Retroperitoneum: No mass. Vasculature: The celiac axis and SMA are patent. The portal vein and branches, splenic vein, SMV, and hepatic veins are patent. No abdominal aortic or iliac artery aneurysm. Pelvis: No mass, ascites or fluid collection. Bones/Soft Tissues: No significant finding. Lower thorax: A chest CT performed will be reported separately. IMPRESSION: Stable findings including indeterminate splenic mass and low-attenuation hepatic densities suggestive of cysts. Kitchen Helper: [facility] Transcribe Date/Time: Nov 27 2017 3:42P Dictated by : YOSEF CASEY MD This examination was interpreted and the report reviewed and electronically signed by: YOSEF ACSEY MD on Nov 27 2017 3:49PM EST [id number] CT CHEST W IVCON Observed: 11/27/2017 Status: F Source: [place] 3:04 PM [facility] REPOSITORY * * *Final Report* * * DATE OF EXAM: Nov 27 2017 3:04PM [facility] 0539 - CT CHEST W IVCON / PROCEDURE REASON: multiple diagnoses * * * * Physician Interpretation * * * * EXAMINATION: CHEST CT WITH CONTRAST CLINICAL HISTORY: Malignant neoplasm of overlapping sites of left female breast Estrogen receptor positive status (ER+) Secondary malignant neoplasm of right lung Secondary malignant neoplasm of brain Technique: Spiral CT acquisition of the chest from the thoracic inlet to the upper abdomen following IV contrast. MQ: [id number] Contrast: 135 mL Omnipaque [address] Dose-Length Product: 713 mGy*cm CT Dose Reduction Employed: Automated exposure control (AEC) Comparison: CT chest 07/26/2017 RESULT: Limitations: None. Lines, tubes, and devices: None. Lung parenchyma and pleura: Linear density anterolateral RIGHT lower lobe about 3 x 1 mm in diameter (6:117) stable to minimally smaller. Linear densities LEFT lung base consistent with atelectasis. No consolidation. No suspicious pulmonary nodule. No pleural effusion. Central airways are patent. Thoracic inlet, heart, and mediastinum: No lymphadenopathy in the axillary, mediastinal, or hilar regions. The thoracic aorta and main pulmonary artery are normal in caliber. The cardiac chambers are normal in size. No coronary artery atherosclerotic calcifications are noted, although the study is not optimized for coronary assessment. No pericardial effusion or thickening. Bones and soft tissues: Status post LEFT mastectomy and LEFT axillary node dissection.. Interval partial healing posterior LEFT seventh rib fracture and further healing LEFT sixth rib fracture. Resolution subcutaneous density near the xiphoid to the LEFT of midline. Upper abdomen: CT abdomen and pelvis dictated separately. IMPRESSION: Stable to slight decrease 3 mm x 1 mm density RIGHT lower lung at site of previous nodule. Resolution of infiltration subcutaneous fat along medial aspect of the mastectomy site. CT abdomen pelvis dictated separately Kitchen Helper: BUCKY Transcribe Date/Time: Nov 27 2017 3:54P Dictated by : YOSEF CASEY MD This examination was interpreted and the report reviewed and electronically signed by: YOSEF CASEY MD on Nov 27 2017 4:05PM EST [id number] RAMIRO ISTAT BMP Collected: 11/27/2017 Status: F Source: [place] 10:45 AM [facility] REPOSITORY TYPE CODE TESTS RESULT OUT OF REFERENCE UNITS RANGE LAB NAWB 132-148 mmol/L Sodium, Whole 141 Bld LAB K1WB 3.5-5.0 mmol/L Potassium,Who 4.0 le Bld LAB CLWB 98-110 mmol/L Chloride, 101 Whole Bld LAB ICAWB 1.08-1.30 mmol/L High Ionized 1.34 Calcium, WB Result Comment: Please note: This value represents ionized calcium not total calcium. LAB CO2WB 23-32 mmol/L TCO2, Whole Blood 29 LAB GLUWB 65-100 mg/dL Glucose, Whole Bld 79 LAB BUNWB 8-25 mg/dL BUN, Whole Blood 13 LAB BCRET 0.70-1.40 mg/dL Low Creatinine,Wh ole Bld 0.60 LAB AGAPWB 0-15 mmol/L Anion Gap, Whole Bld 11 LAB GFRAA eGFR- Amer. >60 LAB GFRNAA . eGFR-All Other Races >60 Result Comment: eGFR (Estimated GFR) Units of measure: mL/min/1.73 meters squared eGFR is derived from the reexpressed MDRD Study equation using the following parameters: serum creatinine, age, gender and race. The creatinine assay has been calibrated to be traceable to IDMS. An eGFR <60 mL/min/1.73m2 for >3 months is consistent with chronic kidney disease. Refer to KDOQI guidelines for clinical interpretation. In patients with unstable renal function, e.g. those with acute kidney injury, the eGFR may not accurately reflect actual GFR. [place] ABS GR + CBC Collected: 11/27/2017 Status: F Source: [place] 10:45 AM [facility] REPOSITORY TYPE CODE TESTS RESULT OUT OF REFERENCE UNITS RANGE LAB WWBC 3.70-11.00 k/uL [place] WBC 4.68 LAB WRBC 3.90-5.20 m/uL Low [place] RBC 3.70 LAB WHGB 11.5-15.5 g/dL [place] Hemoglobin 11.8 LAB WHCT 36.0-46.0 % [place] Hematocrit 36.8 LAB WMCV 80.0-100.0 fL [place] MCV 99.5 LAB WMCH 26.0-34.0 pg [place] MCH 31.9 LAB WMCHC 30.5-36.0 g/dL [place] MCHC 32.1 LAB WRDW 11.5-15.0 % [place] RDW 12.9 LAB WPLT 150-400 k/uL [place] Platelet Cnt 262 LAB WMPV 9.0-12.7 fL [place] MPV 9.4 Result Comment: Test performed at: [facility], [address] [place] [address]. LAB ABGRAN 1.45-7.50 k/uL Absol Gran 2.38 Count HEPATIC FUNCTN PANEL Collected: 11/27/2017 Status: F Source: [place] 10:45 AM [facility] REPOSITORY TYPE CODE TESTS RESULT OUT OF REFERENCE UNITS RANGE LAB ALB 3.9-4.9 g/dL Albumin 3.9 LAB TBIL 0.2-1.3 mg/dL Bilirubin, Total 0.2 LAB CBIL <0.2 mg/dL Bilirubin,Conjuga <0.2 agatha LAB ALKP 32-117 U/L Alkaline Phosphatase 94 LAB AST 13-35 U/L AST 20 LAB ALT 7-38 U/L ALT 11 LAB TP 6.3-8.0 g/dL Protein, Total 6.5 Performed By: #### HFP #### [facility] [address] [place], [place] [address] SURGERY VISIT REPORT Observed: 11/08/2017 Status: F Source: [place] 2:07 PM [facility] REPOSITORY [facility] [address] [place] [address] OFFICE VISIT Date of Service: 11/07/17 MR#: [id number] Acct: [id number] Name: ANNA BARRERA Rep #: [id number] : 1940 Provider: Stacey Pizano PA-C Age/Sex: 77/F Location: [facility] Status: Signed Intake Intake Visit Reasons: pain at mastectomy site 2017 Chief Complaint: Encephalopathy Steward/Stewardess Wine Required: No Is patient in pain?: Yes (left chest pain) Allergies shellfish derived Allergy (Verified 11/07/17 08:25) Hives tetracycline [Tetracycline] Allergy (Verified 11/07/17 08:25) pt unsure alcohol Adverse Reaction (Verified 11/07/17 08:25) Unknown promethazine [From Phenergan] Adverse Reaction (Verified 11/07/17 08:25) Other Medications Lorazepam [Ativan] 0.25 mg PO [...] resolved. She notes weakness of her right hand and lower extremity. She had an MRI of her brain which demonstrated a metastatic brain cancer. She was treated with Gamma Knife treatment at [facility]. Patient had a follow-up MRI of the brain at [facility] which demonstrated dramatic decrease in the size [...] strength. She seems frustrated today. Exam Const General: cooperative, healthy appearing, comfortable, no acute distress Chest Other: Left chest incision- c/d/i. Very nicely healed. Minimal amount of discomfort with palpation near the lateral end of the incision. Assessment AND Plan Problems 1. 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 Musculoskeletal disorder M79.9 Plan - Continue using heating pad - Use NSAIDs as needed - May go to [facility] and perform leg work outs. 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 Breast location: lower inner quadrant of breast Estrogen receptor status: positive Patient sex: female Laterality: left Musculoskeletal disorder M79.9 11/08/17 1407 <Electronically signed by Stacey Pizano PA-C> Date Stacey Pizano PA-C Cosigner Signature: Date (if applicable) CC: SURGERY VISIT REPORT Observed: 10/31/2017 Status: F Source: [place] 12:37 PM [facility] REPOSITORY [facility] [address] [place] [address] [address] [place] [address] OFFICE VISIT Date of Service: 10/31/17 MR#: [id number] Acct: [id number] Name: ANNA BARRERA Rep #: [id number] : 1940 Provider: Stacey Pizano PA-C Age/Sex: 77/F Location: [facility] Status: Signed Intake Intake Visit Reasons: pain at mastectomy site 2017 Chief Complaint: Encephalopathy Is patient in pain?: Yes (Left chest at incision) Pain scale (1-10): 4 Allergies shellfish derived Allergy (Verified 10/31/17 08:32) Hives tetracycline [Tetracycline] Allergy (Verified 10/31/17 08:32) pt unsure alcohol Adverse Reaction (Verified 10/31/17 08:32) Unknown promethazine [From Phenergan] Adverse Reaction (Verified 10/31/17 08:32) Other Medications Lorazepam [Ativan] 0.25 mg PO TID PRN PRN 07/14/13 [History Confirmed 10/31/17] Metoprolol Tartrate [Lopressor (beta mike)] 50 mg PO BIDCM 07/14/13 [History Confirmed 10/31/17] Levothyroxine [Synthroid] 250 mcg PO QWEEK 06/15/17 [History Confirmed 10/31/17] Ondansetron [Zofran Odt] 8 mg PO Q8H PRN PRN 07/15/17 [History Confirmed 10/31/17] Acetaminophen [Tylenol Tablet] 325 mg PO Q6H PRN PRN 09/08/17 [History Confirmed 10/31/17] Fluconazole [Diflucan] 100 mg PO DAILY #10 tab 09/10/17 [Rx Confirmed 10/31/17] Levothyroxine [Synthroid] 125 mcg PO DAILY 09/10/17 [History Confirmed 10/31/17] Ondansetron [Zofran Odt] 4 mg PO Q8H [...] resolved. She notes weakness of her right hand and lower extremity. She had an MRI of her brain which demonstrated a metastatic brain cancer. She was treated with Gamma Knife treatment at [facility]. Patient had a follow-up MRI of the brain at [facility] which demonstrated dramatic decrease in the size of the brain met. Patient called into our office this morning noting a pulling sensation at her mastectomy incision when she bent over to pull on a rug while using the bathroom. She denies constant pain/discomfort. She notes minimal discomfort with palpation. Exam Chest Other: Left chest incision- c/d/i. Minimal amount of discomfort with palpation. Assessment AND Plan Problems 1. History of modified radical mastectomy of left breast Z90.12 2017 2. Musculoskeletal pain M79.1 Plan - Recommend taking Tylenol for discomfort - Use heating pad multiple times per day - Follow-up in 1 week Coding Level of Care Code Off vis,est,level 3 Diagnoses History of modified radical mastectomy of left breast Z90.12 Musculoskeletal pain M79.1 10/31/17 1237 <Electronically signed by Stacey Pizano PA-C> Date Stacey Pizano PA-C Cosigner Signature: Date (if applicable) CC: OT D/C SUMMARY Observed: 10/25/2017 Status: F Source: [place] 10:53 AM [facility] REPOSITORY [facility] Occupational Therapy [address] [place] [address] Fax REHABILITATION SERVICES DISCHARGE SUMMARY MR#: [id number] Acct: [id number] Name: ANNA BARRERA Rep #: [id number] : 1940 77 From: Ana GANT/MARY Leigh Referring Dr.: Stacey Pizano PA-C Status: REG RCR Eval Date: Discharge Date: HP - OT D/C Summary It has been my pleasure to treat ANNA BARRERA under orders from Stacey Pizano, for the diagnosis of Masectomy for a total of 7 visit(s). Please see the following information for a summary of their discharge status. 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 right lat. pinch 8# right tripod pinch 8# left lat.pinch 8# left [...] d/c - Plan Plan: D/C - D/C Information Discharge Comments: pt was seen for 7 visits to ed. on scar mtg, lymphedema sighs and symptoms- pt also ind. with UB gym eq. pt is performing her HARMONY with all ADLS and IADLS- pt states she is going to talk to her counsler and will schedule her eye apt for her decline in her vision. If there are questions or concerns regarding this patient's occupational therapy, please fell free to call me at [phone]. Thank you for the referral of this patient. Sincerely, Ana Schilling, OTR/L, CHT <Electronically signed by Ana GANT/KULWANT LeighT> 10/25/17 1053 CC: Stacey Pizano PA-C; Tayla Espinal DO MK Signed OT GENERAL EVALUATION Observed: 10/16/2017 Status: F Source: [place] 8:11 AM [facility] REPOSITORY [facility] Occupational Therapy [facility] [address] [place] [address] Fax REHABILITATION SERVICES INITIAL EVALUATION MR#: [id number] Acct: [id number] Name: ANNA BARRERA Rep #: [id number] : 1940 77 From: Ana Schilling OTR/L, CHT Referring Dr.: Stacey Pizano PA-C Status: REG RCR Insurance: [employer] Date: MEDICARE A ONLY Patient's Visit Information ANNA BARRERA is a 77 year old F, referred to Occupational Therapy by Stacey Pizano, with a diagnosis of Masectomy. Date of Evaluation: 10/03/17 Occupational Therapist: Ana Schilling, OTR/L, CHT - Subjective Subjective: Pt states she arrives to OT following a Masectomy 1--18, 11 nodes removal. [facility] chemo- for 4 session in jan 2017 every 2 weeks-. 2 week break follow with 4 weeks more chemo - last chemo May 17, 2017 while tumor decreased in size- and then removal completed in Jun. Pt stated she does have swelling in her brain- steriods for 10 days and [...] Left WNL - Strength Shoulder: R/L 4/5 Management Analyst: right 45# left 45# Lateral Pinch: right [...] Rehabilitation Potential: Good - Anticipated Interventions Anticipated Interventions: A/AAROM/PROM, Strengthening, Scar Care, ADL Training, Education re Diagnosis - Visit Plan Frequency: 2x /Week Duration: 4 Weeks General Plan: Therapy will initiate pts ed. on scar mtg - precautions for left UE and ed on lymphedema signs/symptoms- pt will begin functional ROM ex and progress to UB strengthening- pt was also ed. on energy conservation eric. to assist in decreasing pts fatigue. pt will be encouraged to return to her health and wellnes ex. plan following therapy. TEXT: Thank you for the opportunity to evaluate your patient. For Medicare and Medicare HMO plans, please review the plan of care and approve it. It will need to be FAXED BACK to us at [phone] for Medicare purposes. Please let me know if there are questions or concerns regarding this plan of care. Physician Signature: Date: <Electronically signed by Ana GANT/KULWANT LeighT> 10/16/17 0811 CC: Stacey Pizano PA-C; Tayla Espinal DO DOTTY Signed For Medicare only, by signing this I certify the plan of care. Physicians Signature Date PT D/C SUMMARY (1) Observed: 10/10/2017 Status: F Source: [place] 10:28 AM [facility] REPOSITORY [facility] Physical Therapy [facility] [address] [place] [address] Fax REHABILITATION SERVICES DISCHARGE SUMMARY MR#: [id number] Acct: [id number] Name: ANNA BARRERA Rep #: [id number] : 1940 77 From: Alistair GAMEZT Referring Dr.: Stacey Pizano PAGuyC Status: REG RCR Insurance: ANTHE[employer] MEDICARE A ONLY HP - PT D/C Summary It has been my pleasure to treat ANNA BARRERA under orders from Stacey Pizano, for the diagnosis of Left Breast Cancer for a total of 13 visit(s). Discharge Date: Please see the following information for a summary of their discharge status. - Subjective Subjective: Patient reports that she is feeling better about physical therapy- She starts OT this week. Feels that she is getting more motivated. Doesn't always sleep well- does have medication to help. Has a hard time seeing and has fear associated with it. - Objective Objective/Function: Posture: good throughout. Gait: slightly deviated- short choppy steps. Stairs: asc recip with 2 HRs and desc non recip with 2 HR- reports hard to see. ROM: WFL. Strength: Ankle:5/5,Knee: 5/5, Hip: 4+/5 Core:fair plus - Goals Goal 1:: Patient will be I with HEP and progression Goal Progress: Goal Met Goal 2:: Patient will ambulate >800 feet with no SOB to demonstrate increased endurance Goal Progress: Goal Met Goal 3:: Alenanet will demo 4+/5 strength in LE where deficit Goal Progress: Goal Met Goal 4:: Patient will maintain proper posture t/o tx session to demo increased core s/s. Goal Progress: Goal Met - Plan Plan: Discharge to [facility] through [facility] - D/C Information If there are questions or concerns regarding this patient's physical therapy, please feel free to call me at [phone]. Thank you for the referral of this patient. Sincerely, Alistair Rodriguez <Electronically signed by Alistair Rodriguez DPT> 10/10/17 1028 CC: Stacey Pizano PA-C; Tayla Espinal DO ELR Signed PROGRESS Observed: 10/05/2017 Status: COMPLETED Source: [place] 2:41 PM [facility] REPOSITORY HNO ID: [id number] Author: Navdeep Garcia Service: (none) Author Type: Physician Type: Progress Notes Filed: 10/05/2017 7:14 PM Note Text: FOLLOW-UP PROGRESS NOTE Purpose of Visit: Post operative follow-up. 77F with metastatic breast cancer (lung, brain). Currently on chemotherapy - Faslodex and anastrozole S/p GKRS to left frontal lesion on 08/14/2017 Vital Signs: BP 138/75 Pulse 92 Temp 36.9 ?C (98.5 ?F) (Temporal Artery) Resp 16 Wt 66.8 kg (147 lb 4.8 oz) SpO2 97% BMI 25.89 kg/m2 Medications: Current Outpatient Prescriptions: omeprazole (PRILOSEC) 20 mg capsule Take 2 capsules by mouth once daily. Disp: 60 capsule Rfl: 2 ondansetron orally disintegrating (ZOFRAN ODT) 4 mg disintegrating tablet Take 4 mg by mouth three times daily as needed. Disp: Rfl: 0 LORazepam (ATIVAN) 0.5 mg tab Take 1 tablet by mouth three times daily as needed for up to 30 days. Disp: 45 tablet Rfl: 0 anastrozole (ARIMIDEX) 1 mg tablet Take 1 tablet by mouth once daily. Disp: 30 tablet Rfl: 5 levothyroxine (SYNTHROID) 125 mcg tablet 125 mcg once daily. Disp: Rfl: acetaminophen (TYLENOL) 325 mg tablet Take 650 mg by mouth every 6 hours as needed. Disp: Rfl: metoprolol tartrate, short acting, (LOPRESSOR) 50 mg tablet 50 mg twice daily. Disp: Rfl: iv contrast (radiology procedure) MRI Brain Inject, intravenously, once for 1 dose.No IV access, insert saline lock prior to beginning of sedation, infusion, injection of imaging exam.Discontinue saline lock post exam. If Pt. has a central line or IVAD, may access for administration according to line specific nursing protocol.Once exam is complete flush line and de-access according to line specific nursing protocol in the MR contrast administration guidelines link Disp: 1 Each Rfl: 0 No current facility-administered medications for this visit. Subjective: Since GKRS she has had no new complaints. She was diagnosed with breast cancer and brain metastasis and had treatment as above. She denies any new neurological complaints. Systemically she is stable. She is here for follow up with a new MRI. Neurological Exam: No new findings Other Physical Findings: No interval change New Imaging Studies: MRI brain 10/05/2017 IMPRESSION: Marked interval decrease in size of solitary intra-axial metastatic lesion in the left precentral gyrus, with essentially resolved localized edema and mass effect since 08/14/2017. No evidence of new intracranial metastatic lesions. 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 Kitchen Helper: BUCKY ? Transcribe Date/Time: Oct 05 2017 ?2:22P Dictated by : KATIE GUTHRIE MD This examination was interpreted and the report reviewed and electronically signed by: LELIA KNAPP MD on Oct 05 2017 ?3:16PM ?EST Assessment: treated lesions to be stable and no new lesions Plan: F/up MRI in 3 months with our PATIENT SUPPORT REPRESENTATIVE (Shital Waldrop). Navdeep Garcia MD MRI BRAIN WO/W Observed: 10/05/2017 Status: F Source: [place] 2:04 PM [facility] REPOSITORY * * *Final Report* * * DATE OF EXAM: Oct 05 2017 2:04PM CAM 0295 - MRI BRAIN WO/W IVCON / PROCEDURE REASON: multiple diagnoses * * * * Physician Interpretation * * * * EXAMINATION: MRI BRAIN WO/W IVCON HISTORY: Metastatic breast status post gamma knife therapy. TECHNIQUE: MR brain intracranial mass protocol without and with gadolinium. Perfusion imaging was performed. MQ: [id number] MR Contrast: Dotarem Contrast Dose: 14 cc Route of Administration: IV COMPARISON: MR brain 08/14/2017 RESULT: Acute Change: No evidence of an acute intracranial process. Hemorrhage: Focal susceptibility artifact corresponding with treated metastatic lesion in the left precentral gyrus, compatible with post treatment change. Mass Lesion/ Mass Effect: Since 08/14/2017, substantially decreased size of heterogeneously enhancing intra-axial mass in the left precentral gyrus superiorly, now measuring 4 mm in maximum dimension, previously 16 x 14 x 12 mm. Minimal residual surrounding T2/FLAIR hyperintensity. Essentially resolved localized mass effect. On the perfusion sequences, no definite corresponding elevated CBV, the utility of which is limited by small lesion size and significant localized susceptibility artifact. No new foci of pathologic parenchymal or leptomeningeal enhancement identified on the current examination. Chronic Change: Scattered patchy nonspecific foci of T2/FLAIR hyperintensity in the supratentorial white matter and mild patchy signal abnormality within the central thong, likely mild chronic microvascular ischemia. Parenchyma: Mild-moderate generalized parenchymal volume loss. The brain parenchyma is otherwise within normal limits of signal intensity and morphology. Ventricles: Moderate enlargement commensurate with degree of parenchymal volume loss. No significant change. Skull Base: Hypothalamic and pituitary region are grossly normal. Craniocervical junction is normal. No significant marrow replacement process. Vasculature: There is concern for a small aneurysm of the basilar tip (image 60 series 26) measuring approximately 3.5 x 4.5 mm. Major intracranial arterial structures, and dural venous sinuses show typical flow void, suggesting patency by spin echo criteria. Other: The visualized paranasal sinuses and mastoid air cells are clear. The orbits and extracranial soft tissues are unremarkable. IMPRESSION: Marked interval decrease in size of solitary intra-axial metastatic lesion in the left precentral gyrus, with essentially resolved localized edema and mass effect since 08/14/2017. No evidence of new intracranial metastatic lesions. 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 Kitchen Helper: PSCB Transcribe Date/Time: Oct 05 2017 2:22P Dictated by : KATIE GUTHRIE MD This examination was interpreted and the report reviewed and electronically signed by: LELIA KNAPP MD on Oct 05 2017 3:16PM EST [id number] CNOV Observed: 10/05/2017 Status: COMPLETED Source: [place] 2:00 PM [facility] REPOSITORY Office Visit (NSCAMN) ANNA BARRERA ([id number]) 1940 F Date Time Provider Department 10/05/17 2:00 PM ANVDEEP GARCIA During your visit today, we recorded the following information about you: Temperature Pulse Respiration Blood pressure 98.5 degrees 92/minute 16/minute 138/75 Weight 66.8 kg Robert Beasley LPN, SHANNON 10/05/2017 2:29 PM Signed Additional intake questions: Has the patient had nausea, vomiting, diarrhea, constipation, fatigue for ANDgt; 1 week? None of the above Does the patient have a decreased appetite? No Does patient want to see a Induction Furnace Operator? No (yes to any of above refer patient to schedulers for dietitian appointment) ) Does patient have any new or increased numbness or tingling of extremities? No Is patient interested in fertility information? No Does patient need any prescription refills? No Electronically Signed By: SHANNON Roldan MD 10/05/2017 7:14 PM Signed FOLLOW-UP PROGRESS NOTE Purpose of Visit: Post operative follow-up. 77F with metastatic breast cancer (lung, brain). Currently on chemotherapy - Faslodex and anastrozole S/p GKRS to left frontal lesion on 08/14/2017 Vital Signs: BP 138/75 Pulse 92 Temp 36.9 ?C (98.5 ?F) (Temporal Artery) Resp 16 Wt 66.8 kg (147 lb 4.8 oz) SpO2 97% BMI 25.89 kg/m2 Medications: Current Outpatient Prescriptions: omeprazole (PRILOSEC) 20 mg capsule Take 2 capsules by mouth once daily. Disp: 60 capsule Rfl: 2 ondansetron orally disintegrating (ZOFRAN ODT) 4 mg disintegrating tablet Take 4 mg by mouth three times daily as needed. Disp: Rfl: 0 LORazepam (ATIVAN) 0.5 mg tab Take 1 tablet by mouth three times daily as needed for up to 30 days. Disp: 45 tablet Rfl: 0 anastrozole (ARIMIDEX) 1 mg tablet Take 1 tablet by mouth once daily. Disp: 30 tablet Rfl: 5 levothyroxine (SYNTHROID) 125 mcg tablet 125 mcg once daily. Disp: Rfl: acetaminophen (TYLENOL) 325 mg tablet Take 650 mg by mouth every 6 hours as needed. Disp: Rfl: metoprolol tartrate, short acting, (LOPRESSOR) 50 mg tablet 50 mg twice daily. Disp: Rfl: iv contrast (radiology procedure) MRI Brain Inject, intravenously, once for 1 dose.No IV access, insert saline lock prior to beginning of sedation, infusion, injection of imaging exam.Discontinue saline lock post exam. If Pt. has a central line or IVAD, may access for administration according to line specific nursing protocol.Once exam is complete flush line and de-access according to line specific nursing protocol in the MR contrast administration guidelines link Disp: 1 Each Rfl: 0 No current facility-administered medications for this visit. Subjective: Since GKRS she has had no new complaints. She was diagnosed with breast cancer and brain metastasis and had treatment as above. She denies any new neurological complaints. Systemically she is stable. She is here for follow up with a new MRI. Neurological Exam: No new findings Other Physical Findings: No interval change New Imaging Studies: MRI brain 10/05/2017 IMPRESSION: Marked interval decrease in size of solitary intra-axial metastatic lesion in the left precentral gyrus, with essentially resolved localized edema and mass effect since 08/14/2017. No evidence of new intracranial metastatic lesions. 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 Kitchen Helper: BUCKY ? Transcribe Date/Time: Oct 05 2017 ?2:22P Dictated by : KATIE GUTHRIE MD This examination was interpreted and the report reviewed and electronically signed by: LELIA KNAPP MD on Oct 05 2017 ?3:16PM ?EST Assessment: treated lesions to be stable and no new lesions Plan: F/up MRI in 3 months with our PATIENT SUPPORT REPRESENTATIVE (Shital Waldrop). Navdeep Garcia MD Referring Provider: NAVDEEP GARCIA [[id number]] Allergies As of Date: 10/05/2017 Noted Allergy Reaction ALCOHOL, UNSPECIFIED 01/31/2017 5 - Intolerance Comments: Recovering alcoholic TETRACYCLINE 01/31/2017 14 - Other: See Comments Comments: Thrush in mouth PHENERGAN (PROMETHAZINE HCL) 09/18/2017 1 - Mental Status Change Date Reviewed: 10/05/2017 Reviewed by: Robert Russell) SHANNON Beasley - Fully Assessed Reason for Visit: Established Patient [175] Primary Visit Diagnosis:Brain metastases (HCC) [C79.31] Prescriptions as of 10/05/2017 Sig: OMEPRAZOLE 20 MG CAPSULE,MAMADOU* Take 2 capsules by mouth once* ONDANSETRON 4 MG DISINTEGRATI* Take 4 mg by mouth three time* LORAZEPAM 0.5 MG TABLET Take 1 tablet by mouth three * ANASTROZOLE 1 MG TABLET Take 1 tablet by mouth once d* LEVOTHYROXINE 125 MCG TABLET 125 mcg once daily. ACETAMINOPHEN 325 MG TABLET Take 650 mg by mouth every 6 * METOPROLOL TARTRATE 50 MG TAB* 50 mg twice daily. Problem List As Of Date 10/05/2017 Noted Resolved Breast CA (HCC) [C50.919] INVALID FOR*03/21/2017 More... Malignant neoplasm of overlapping sites of left*INVALID FOR* 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 (HC*INVALID FOR* Brain metastases (HCC) [C79.31] INVALID FOR* Visit Notes: >> Robert Beasley LPN [facility] Oct 05, 2017 2:28 PM Status: Signed Additional intake questions: Has the patient had nausea, vomiting, diarrhea, constipation, fatigue for > 1 week? None of the above Does the patient have a decreased appetite? No Does patient want to see a Induction Furnace Operator? No (yes to any of above refer patient to schedulers for dietitian appointment) ) Does patient have any new or increased numbness or tingling of extremities? No Is patient interested in fertility information? No Does patient need any prescription refills? No Electronically Signed By: Robert Beasley LPN Encounter Status:Closed by NAVDEEP GARCIA MD on 10/05/17 PROGRESS Observed: 10/05/2017 Status: COMPLETED Source: [place] 1:45 PM [facility] REPOSITORY [facility] ID: [id number] Author: Obduilo Guerrero Service: (none) Author Type: (none) Type: Progress Notes Filed: 10/05/2017 2:10 PM Note Text: Radiology Service Progress Note PATIENT NAME: Anna Barrera DATE OF SERVICE: October 05, 2017 TIME: 1:45 PM PATIENT IDENTITY VERIFICATION COMPLETED USING TWO (2) METHODS: Patient confirmed name verbally and Date of . PATIENT GENDER DATA: Female. status: : No status: NO. PATIENT RELEVANT IMPLANT DATA REVIEWED: Yes RADIOLOGY DEPARTMENT: MR; Exam(s) Completed: Head: Routine Brain with Perfusion PERIPHERAL IV DATA: Site assessment: Clean,Dry and Intact, Site disposition Discontinued SIGNED BY: Obdulio Guerrero October 05, 2017 1:45 PM PROGRESS Observed: 10/05/2017 Status: COMPLETED Source: [place] 12:17 PM [facility] [place] REPOSITORY [facility] ID: [id number] Author: [place] (Rn) JOSÉ MIGUEL Saha Service: Nursing Author Type: Registered Nurse Type: Progress Notes Filed: 10/05/2017 12:40 PM Note Text: Radiology Service Progress Note PATIENT NAME: Anna Barrera DATE OF SERVICE: October 05, 2017 TIME: 12:17 PM PATIENT WEIGHT: 147 LBS PATIENT IDENTITY VERIFICATION COMPLETED USING TWO (2) METHODS: Patient confirmed name verbally and ID band matches.. PATIENT GENDER DATA: Female. status: : No status: NO. CONTRAST INDUCED NEPHROPATHY RISK FACTORS: Patient age > 60 years CREATININE: Creatinine Date Value Ref Range Status 07/05/2017 0.57 (L) 0.58 - 0.96 mg/dL Final 01/31/2017 0.79 0.58 - 0.96 mg/dL Final Creatinine, Whole Blood (iSTAT) Date Value Ref Range Status 07/26/2017 0.70 0.70 - 1.40 mg/dL Final 05/29/2017 0.80 0.70 - 1.40 mg/dL Final 05/16/2017 0.60 (L) 0.70 - 1.40 mg/dL Final eGFR-All Other Races Date Value Ref Range Status 07/26/2017 >60 . Final Comment: eGFR (Estimated GFR) Units of measure: mL/min/1.73 meters squared eGFR is derived from the reexpressed MDRD Study equation using the following parameters: serum creatinine, age, gender and race. The creatinine assay has been calibrated to be traceable to IDMS. An eGFR <60 mL/min/1.73m2 for >3 months is consistent with chronic kidney disease. Refer to KDOQI guidelines for clinical interpretation. In patients with unstable renal function, e.g. those with acute kidney injury, the eGFR may not accurately reflect actual GFR. eGFR- Date Value Ref Range Status 07/26/2017 >60 Final P.O.C.T. RESULTS: POC done: Yes, See Lab Tab October 05, 2017 TREATMENT: No Hydration needed. ALLERGIES: Reviewed and unchanged CONTRAST ALLERGY: NO. IV SITE: Ambulatory: A peripheral IV was started in the Right antecubital site with a Angio cath: 22 gauge diffusic and A Saline lock was inserted per protocol IV SITE APPEARANCE: Clean,Dry and Intact SIGNED BY: India Saha RN October 05, 2017 12:17 PM OT GENERAL EVALUATION Observed: 10/05/2017 Status: F Source: [place] 9:34 AM [facility] REPOSITORY [facility] Occupational Therapy [facility] [place] [address] Fax REHABILITATION SERVICES INITIAL EVALUATION MR#: [id number] Acct: [id number] Name: ANNA BARRERA Rep #: [id number] : 1940 77 From: Ana GANT/MARY Leigh Referring Dr.: Stacey Pizano PA-C Status: REG R Insurance: [facility] Date: MEDICARE A ONLY Patient's Visit Information ANNA BARRERA is a 77 year old F, referred to Occupational Therapy by Stacey Pizano, with a diagnosis of Masectomy. Date of Evaluation: 10/03/17 Occupational Therapist: STALIN Cunningham/MARY Leigh - Subjective Subjective: Pt states she arrives to OT following a Masectomy 1-4-18, 11 nodes removal. ANC chemo- for 4 session in jan 2017 every 2 weeks-. 2 week break follow with 4 weeks more chemo - last chemo May 17, 2017 while tumor decreased in size- and then removal completed in Jun. Pt stated she does have swelling in her brain- steriods for 10 days and [...] Left WNL - Strength Shoulder: R/L 4/5 Management Analyst: right 45# left 45# Lateral Pinch: right [...] Rehabilitation Potential: Good - Anticipated Interventions Anticipated Interventions: A/AAROM/PROM, Strengthening, Scar Care, ADL Training, Education re Diagnosis - Visit Plan Frequency: 2x /Week Duration: 4 Weeks General Plan: Therapy will initiate pts ed. on scar mtg - precautions for left UE and ed on lymphedema signs/symptoms- pt will begin functional ROM ex and progress to UB strengthening- pt was also ed. on energy conservation eric. to assist in decreasing pts fatigue. pt will be encouraged to return to her health and wellnes ex. plan following therapy. TEXT: Thank you for the opportunity to evaluate your patient. For Medicare and Medicare HMO plans, please review the plan of care and approve it. It will need to be FAXED BACK to us at [phone] for Medicare purposes. Please let me know if there are questions or concerns regarding this plan of care. Physician Signature: Date: <Electronically signed by Ana REYNOSO, KULWANTT> 10/05/17 0934 CC: Stacey Pizano PA-C; Taylajosiah Espinal MK Signed For Medicare only, by signing this I certify the plan of care. Physicians Signature Date PROGRESS Observed: 10/02/2017 Status: COMPLETED Source: [place] 10:37 AM [facility] REPOSITORY [facility] ID: [id number] Author: Meg Weber (Sw) Service: (none) Author Type: Chart Picker Type: Progress Notes Filed: 10/02/2017 10:38 AM Note Text: SOCIAL WORK FOLLOW UP NOTE: CANCER CENTER Date of service: October 02, 2017 Anna Barrera is being seen for a follow up social work visit. Today's visit includes: patient TOPICS ADDRESSED: Coping/support; Patient reports she is not going to follow through with [facility]. RICARDO informed her of [facility] and also invited her to the nutrition seminar here on October 17. Patient reports she is interested in going. PLAN: Referral to appropriate support group, Communicate pertinent medical/psychosocial information to Cancer Center team, Continue follow up as needed and Provide emotional support to patient/family F/U APPOINTMENT: CALE Campbell Observed: 10/02/2017 Status: COMPLETED Source: [place] 12:00 AM [facility] REPOSITORY Social Work (HEMAWS) BRUCEANNA S ([id number]) 1940 F Date Time Provider Department 10/02/17 MEG WEBER) JAYA During your visit today, we recorded the following information about you: CALE Rose 10/02/2017 10:38 AM Signed SOCIAL WORK FOLLOW UP NOTE: CANCER CENTER Date of service: October 02, 2017 Anna Barrera is being seen for a follow up social work visit. Today's visit includes: patient TOPICS ADDRESSED: Coping/support; Patient reports she is not going to follow through with [facility]. RICARDO informed her of [facility] and also invited her to the nutrition seminar here on October 17. Patient reports she is interested in going. PLAN: Referral to appropriate support group, Communicate pertinent medical/psychosocial information to Cancer Center team, Continue follow up as needed and Provide emotional support to patient/family F/U APPOINTMENT: PRN CALE Rose Allergies As of Date: 10/02/2017 Noted Allergy Reaction ALCOHOL, UNSPECIFIED 01/31/2017 5 - Intolerance Comments: Recovering alcoholic TETRACYCLINE 01/31/2017 14 - Other: See Comments Comments: Thrush in mouth PHENERGAN (PROMETHAZINE HCL) 09/18/2017 1 - Mental Status Change Date Reviewed: 10/02/2017 Reviewed by: Cele Kim LPN - Fully Assessed Reason for Visit: Social Work Services [507] Cmt: follow up Prescriptions as of 10/02/2017 Sig: OMEPRAZOLE 20 MG CAPSULE,MAMADOU* Take 2 capsules by mouth once* ONDANSETRON 4 MG DISINTEGRATI* Take 4 mg by mouth three time* LORAZEPAM 0.5 MG TABLET Take 1 tablet by mouth three * ANASTROZOLE 1 MG TABLET Take 1 tablet by mouth once d* LEVOTHYROXINE 125 MCG TABLET 125 mcg once daily. ACETAMINOPHEN 325 MG TABLET Take 650 mg by mouth every 6 * METOPROLOL TARTRATE 50 MG TAB* 50 mg twice daily. Problem List As Of Date 10/02/2017 Noted Resolved Breast CA (HCC) [C50.919] INVALID FOR*03/21/2017 More... Malignant neoplasm of overlapping sites of left*INVALID FOR* 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 (HC*INVALID FOR* Brain metastases (HCC) [C79.31] INVALID FOR* Encounter Status:Closed by MEG WEBER on 10/02/17 PROGRESS Observed: 09/22/2017 Status: COMPLETED Source: [place] 11:47 AM [facility] REPOSITORY [facility] ID: [id number] Author: Ky Burkett Service: (none) Author Type: Physician Type: Progress Notes Filed: 09/22/2017 12:34 PM Note Text: Diagnosis: 1) Breast cancer. HPI: Patient is a 77-year-old female whom I initially saw in the hospital for consultation. She was admitted on 01/10/2017 for uncontrolled bleeding from a large breast tumor. A CT of the chest was performed in the emergency room. That study demonstrated a 6.2 x 7.3 x 7.7 cm inhomogeneously vascular mass involving the majority of the left breast along the medial aspect. There was diffuse thickening of the overlying skin observed. There was also evidence of increased markings in the lateral portion of the breast. There were small left axillary lymph nodes noted. Dimensions were not rendered. Significantly, multiple nodules were observed in the right lower lobe. The largest measured 2.6 x 1.5 cm. Increased markings were observed at the lung bases just above the bibasilar atelectasis and/or scarring seen. The mediastinum was observed to be normal as were the hilar regions. Multilevel degenerative changes were observed and thoracic spine. The bleeding was controlled with Gelfoam packing. Patient was seen by general surgery. The patient underwent an ultrasound guided biopsy of the left breast mass on 01/11/2017. 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 COMMENT Immunohistochemistry ([id number]) supports the above diagnosis. 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 Case is reviewed in consultation with Dr. Ibarra of [facility] (complete consultative report viewable in patient?s EMR). ER/MD/Pmy6vdu studies are being performed on sections of tumor and the results from this study will be reported separately ([id number]). RESULTS: ANTIBODY / CLONE RESULT E-Cad (ECH-6) positive, rare cells CK8 (96otajE83) positive, focal P63 (7JUL/4A4) negative Calponin-1 (LR287D) negative CD56 (123C3.D5) negative Chromo (LK2H10) negative Synapto (polyclonal) negative CK5-6 (D5 AND 1684) positive Ki-67 (30-9) positive, high P53 (DO-7) positive, high Vimentin (V9) positive TTF-1 (8G7G3/1) negative AE1-3 (AE1/AE3/PCK26) positive CD45 (RP2/18) negative MART-1 (A-103) negative CK7 (OV-TL12/30) positive CK20 (KS20.8) noncontributory MORPHOMETRIC ANALYSIS ER (clone 6F11) 17%, weak MD (clone 16/1E2) 0 Her-2Neu (clone CB11) 0-1+ The prognostic test for HER2 is performed on formalin-fixed paraffin embedded tissue. A 3+ (positive) staining pattern is defined as intense, homogeneous, complete, circumferential membranous staining in >10% of contiguous tumor cells. A similar weak (2+) staining pattern is interpreted as equivocal. JENNA follow-up testing is recommended for all equivocal cases. Positivity/negativity for ER/MD is reported if > or < 1% of the tumor cells are immuno- reactive, respectively. The ASCO/CAP criteria is used for scoring. Reference: Journal of Clinical Oncology, 2013; 31:8339-4770 AND 2009; 16:0524-6012. Duration of fixation: 6 Hrs; Sample Adequate: Yes. These assays have not been validated on decalcified tissues. Results should be interpreted with caution given the likelihood of false negativity on decalcified specimens. These tests were developed and their performance characteristics determined by [facility]. They may not have been cleared or approved by the U.S. Food and Drug Administration. The FDA has determined that such clearance or approval is not necessary. 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 Positive for estrogen receptors (favorable prognostic indicator). Negative for progesterone receptors (unfavorable prognostic indicator). Negative for overexpression of HME2ghb. Patient underwent an echocardiogram on 01/11/2017 as well. That study demonstrated normal left ventricular size and systolic function. The estimated ejection fraction was 65%. No regional wall motion abnormalities were noted. There was mild mitral valve prolapse. Trivial mitral valve insufficiency was noted. There was mild tricuspid valve insufficiency with mild focal aortic valve thickening. Right ventricular systolic pressure estimated to be 29 mmHg. The patient declined any further radiographic workup in the hospital until she had definitive proof of breast cancer via the biopsy. Previous therapy: 1) Neoadjuvant ddAC followed by Taxol x4 cycles. 2) Left modified radical mastectomy with axillary lymph node dissection 2017. 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 Changes consistent with treatment effect (presurgical neoadjuvant) therapy both in breast and in the lymph nodes. Multiple skin lesions, consistent with seborrheic keratosis. Eleven out of 11 lymph nodes negative for metastatic carcinoma. INVASIVE BREAST CANCER SUMMARY: Specimen - total breast (including nipple and skin). Procedure - total mastectomy (including nipple and skin). Lymph node sampling - axillary dissection Specimen integrity - single, intact specimen Specimen laterality - left Tumor site - lower inner quadrant Tumor size - 0.5 x 0.3 cm Tumor focality - single focus of invasive carcinoma Macroscopic and Microscopic extent of tumor: Skin - invasive carcinoma does not invade into the dermis or epidermis Nipple - ductal carcinoma does not involve the nipple epidermis. Skeletal muscle - no skeletal muscle present. Ductal carcinoma in situ (DCIS) - no ductal carcinoma in situ is present. Lobular carcinoma in situ (LCIS) - not identified Histologic type of invasive carcinoma - poorly differentiated carcinoma with basaloid features. Histologic Grade (Schneider grade): Glandular/tubular differentiation - score 3 Nuclear pleomorphism - score 3 Mitotic count - score 1 Overall grade - 2 (score of 7) Margins: Margins uninvolved by invasive carcinoma. The tumor is 2 cm away from the deep margin. Treatment effect - response to presurgical (neoadjuvant therapy) - In the breast - definite response to presurgical therapy in the invasive carcinoma. In the lymph node - definite response to presurgical therapy in the metastatic carcinoma. See comment. Lymph-Vascular invasion - not identified Dermal lymph-vascular invasion - not identified Lymph nodes: Number of sentinel lymph nodes examined - 0 Total number of lymph nodes examined (sentinel and nonsentinel) - 11 Number of lymph nodes with macrometastases, micrometastases and isolated tumor cells - 0 Distance metastasis - not applicable Additional pathologic findings: - Extensive area of necrosis, histiocytic reaction and hemorrhage (consistent with presurgical neoadjuvant chemotherapy related changes) - Skin lesions, seborrheic keratosis. - Fibrocystic changes with intraductal hyperplasia without atypia. - Microscopic hyalinized fibroadenoma (0.6 x 0.4 cm) - one lymph node with hemangioma (0.1 cm in greatest dimension). Ancillary studies - previously performed on section of tumor ([id number] / [id number]). ER - positive (38% weak to moderate) MD - negative (0%) Her2 nicko - negative (0) Her2 by dual JENNA - not performed Microcalcifications - not identified Clinical history - Please make reference to previous specimen ([id number]) left breast, core biopsy with diagnosis of poorly differentiated ductal carcinoma, basaloid type. PATHOLOGIC STAGE: pT1a(y) pN0 Mx 3) GKS 08/14/2017 Current therapy: 1) Faslodex and anastrozole. Interim history: Several days after her first Faslodex injection the patient had nausea and vomiting. She presented to the emergency room [facility] and was found to have dehydration in addition to her symptomatology. She was hydrated and treated with antiemetic therapy. She underwent a CT of the brain because she was acting somewhat bizarrely as well. In retrospect that was attributed to dehydration. CT of brain unremarkable. She had also just finished tapering dexamethasone prior to the symptoms occurring. She had not been on proton pump inhibitor therapy. She's been taking omeprazole on a daily basis since then. She received her second injection of Faslodex this past Monday and has not had recurrence of symptoms. In fact she feels very well at this point. She is getting out of the house and doing activities she's not had any respiratory symptoms including cough, wheeze, hemoptysis, shortness of breath at rest and/or with exertion. No chest pain or tightness. All of her previous neurologic symptoms have cleared except for some trouble with imbalance when stepping up and down steps. No symptoms of neuropathy. PMH, medications and allergies personally reviewed by me today. Any changes documented in appropriate section. ROS: Constitutional: No episode of fever, night sweats or shaking chills. Neuro: Denies AYALA, vertigo, dizziness. HEENT: No recent change in voice or hearing. Resp: See above. CVS: Denies PND and orthopnea. GI: Denies dysgeusia. Denies symptoms of stomatitis. Denies dysphagia and odynophagia. Denies reflux, n/v, change in bowel habits and abdominal pain. : Denies dysuria or gross hematuria. No symptoms of bladder outlet obstruction. Endo: Denies hot flashes. Denies polyuria and polydipsia. Denies heat and cold intolerance. Musculoskeletal: Denies bone, joint and back pain.. Derm: Denies rash. Denies jaundice and diffuse pruritis. Heme: Denies unexplained bruising. Psych: Normal mood. PHYSICAL EXAM: Vitals: Blood pressure 108/63, pulse 78, temperature 36.7 ?C (98 ?F), weight 66.2 kg (146 lb). Well-appearing and in no acute distress. EYES: Sclerae are anicteric bilaterally. NECK: Supple. LYMPHATIC: There is no palpable cervical, supraclavicular or inguinal adenopathy. RESPIRATORY: Inspiratory breath sounds are of normal intensity in all murcia. CARDIOVASCULAR: Rhythm is regular. Normal intensity S1/S2. There is no gallop or murmur. BREAST: Left mastectomy site appears healthy and there is no evidence of chest wall nodule or mass. ABDOMEN: The abdomen is nondistended. No organomegaly. No tenderness. Extremities: Now swelling of LEs or ankles now. SKIN: No jaundice or rash. No petechiae. NEUROLOGIC: milieu manager II-XII are grossly intact. She now has normal hand heavy duty custodian strength bilaterally. Upper extremity strength is normal bilaterally. She has a little weakness when stepping up on the exam table. MUSCULOSKELETAL: No muscle wasting. ASSESSMENT/PLAN: (C50.812, Z17.0) Malignant neoplasm of overlapping sites of left breast in female, estrogen receptor positive (HCC) (primary encounter diagnosis) (C78.01) 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 (HCC) (C79.31) Brain metastases (HCC) Assessment: -KPS is 90%. -Patient presented with a neglected breast cancer that was locally advanced and had uncontrollable bleeding. In the interest of starting her treatment urgently, biopsy of the lung masses was deferred. -Post-operatively had 5 mm viable tumor. -Solitary left frontal brain metastasis. s/p GKS. Minimal residual symptoms presently. -I again discussed with her and her sister today the overall treatment plan and plan of care. She is tolerating Faslodex and anastrozole very well. She is not having any side effect of hot flash or musculoskeletal pain. Her recent symptoms of gastritis are most likely secondary to dexamethasone use. I explained this to her and encouraged her to continue Prilosec 40 mg once a day until her prescription (a month's supply) runs out. -We are currently scheduled for CT scans and office visit in November. Plan: -Continue Faslodex and anastrozole. -Can get denosumab 60 mg q 6 months. -Schedule for MRI of the brain in several weeks at [facility]. -Complete 1 months worth of Prilosec. -Follow-up in November as scheduled. Total bxfe-vc-ihph time was >25 minutes with greater than 15 minutes spent discussing the issues outlined above and/or coordinating care. Ky Burkett DO CNOVSP Observed: 09/22/2017 Status: COMPLETED Source: [place] 11:00 AM [facility] REPOSITORY Visit (SP) Office (JAYA) ANNA BARRERA ([id number]) 1940 F Date Time Provider Department 09/22/17 11:00 AM [place] BURKETT During your visit today, we recorded the following information about you: Temperature Pulse Blood pressure Weight 98 degrees 78/minute 108/63 66.2 kg Annamarie Irizarry LPN, LPN 09/22/2017 11:47 AM Signed Est pt. , pt. Has multiple questions, wanting to catch up concerning medications SHANNON Ricardo DO 09/22/2017 12:34 PM Signed Diagnosis: 1) Breast cancer. HPI: Patient is a 77-year-old female whom I initially saw in the hospital for consultation. She was admitted on 01/10/2017 for uncontrolled bleeding from a large breast tumor. A CT of the chest was performed in the emergency room. That study demonstrated a 6.2 x 7.3 x 7.7 cm inhomogeneously vascular mass involving the majority of the left breast along the medial aspect. There was diffuse thickening of the overlying skin observed. There was also evidence of increased markings in the lateral portion of the breast. There were small left axillary lymph nodes noted. Dimensions were not rendered. Significantly, multiple nodules were observed in the right lower lobe. The largest measured 2.6 x 1.5 cm. Increased markings were observed at the lung bases just above the bibasilar atelectasis and/or scarring seen. The mediastinum was observed to be normal as were the hilar regions. Multilevel degenerative changes were observed and thoracic spine. The bleeding was controlled with Gelfoam packing. Patient was seen by general surgery. The patient underwent an ultrasound guided biopsy of the left breast mass on 01/11/2017. 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 COMMENT Immunohistochemistry ([id number]) supports the above diagnosis. 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 Case is reviewed in consultation with Dr. Ibarra of [facility] (complete consultative report viewable in patient?s EMR). ER/MD/Cnf9qsr studies are being performed on sections of tumor and the results from this study will be reported separately ([id number]). RESULTS: ANTIBODY / CLONE RESULT E-Cad (ECH-6) positive, rare cells CK8 (29uxwkK23) positive, focal P63 (7JUL/4A4) negative Calponin-1 (ES869L) negative CD56 (123C3.D5) negative Chromo (LK2H10) negative Synapto (polyclonal) negative CK5-6 (D5 ANDamp; 1684) positive Ki-67 (30-9) positive, high P53 (DO-7) positive, high Vimentin (V9) positive TTF-1 (8G7G3/1) negative AE1-3 (AE1/AE3/PCK26) positive CD45 (RP2/18) negative MART-1 (A-103) negative CK7 (OV-TL12/30) positive CK20 (KS20.8) noncontributory MORPHOMETRIC ANALYSIS ER (clone 6F11) 17%, weak MD (clone 16/1E2) 0 Her-2Neu (clone CB11) 0-1+ The prognostic test for HER2 is performed on formalin-fixed paraffin embedded tissue. A 3+ (positive) staining pattern is defined as intense, homogeneous, complete, circumferential membranous staining in ANDgt;10% of contiguous tumor cells. A similar weak (2+) staining pattern is interpreted as equivocal. JENNA follow-up testing is recommended for all equivocal cases. Positivity/negativity for ER/MD is reported if ANDgt; or ANDlt; 1% of the tumor cells are immuno- reactive, respectively. The ASCO/CAP criteria is used for scoring. Reference: Journal of Clinical Oncology, 2013; 31:9007-5897 ANDamp; 2010; 16:5031-3644. Duration of fixation: 6 Hrs; Sample Adequate: Yes. These assays have not been validated on decalcified tissues. Results should be interpreted with caution given the likelihood of false negativity on decalcified specimens. These tests were developed and their performance characteristics determined by [facility]. They may not have been cleared or approved by the U.S. Food and Drug Administration. The FDA has determined that such clearance or approval is not necessary. 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 Positive for estrogen receptors (favorable prognostic indicator). Negative for progesterone receptors (unfavorable prognostic indicator). Negative for overexpression of YNE1esf. Patient underwent an echocardiogram on 01/11/2017 as well. That study demonstrated normal left ventricular size and systolic function. The estimated ejection fraction was 65%. No regional wall motion abnormalities were noted. There was mild mitral valve prolapse. Trivial mitral valve insufficiency was noted. There was mild tricuspid valve insufficiency with mild focal aortic valve thickening. Right ventricular systolic pressure estimated to be 29 mmHg. The patient declined any further radiographic workup in the hospital until she had definitive proof of breast cancer via the biopsy. Previous therapy: 1) Neoadjuvant ddAC followed by Taxol x4 cycles. 2) Left modified radical mastectomy with axillary lymph node dissection 2017. 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 Changes consistent with treatment effect (presurgical neoadjuvant) therapy both in breast and in the lymph nodes. Multiple skin lesions, consistent with seborrheic keratosis. Eleven out of 11 lymph nodes negative for metastatic carcinoma. INVASIVE BREAST CANCER SUMMARY: Specimen - total breast (including nipple and skin). Procedure - total mastectomy (including nipple and skin). Lymph node sampling - axillary dissection Specimen integrity - single, intact specimen Specimen laterality - left Tumor site - lower inner quadrant Tumor size - 0.5 x 0.3 cm Tumor focality - single focus of invasive carcinoma Macroscopic and Microscopic extent of tumor: Skin - invasive carcinoma does not invade into the dermis or epidermis Nipple - ductal carcinoma does not involve the nipple epidermis. Skeletal muscle - no skeletal muscle present. Ductal carcinoma in situ (DCIS) - no ductal carcinoma in situ is present. Lobular carcinoma in situ (LCIS) - not identified Histologic type of invasive carcinoma - poorly differentiated carcinoma with basaloid features. Histologic Grade (Schneider grade): Glandular/tubular differentiation - score 3 Nuclear pleomorphism - score 3 Mitotic count - score 1 Overall grade - 2 (score of 7) Margins: Margins uninvolved by invasive carcinoma. The tumor is 2 cm away from the deep margin. Treatment effect - response to presurgical (neoadjuvant therapy) - In the breast - definite response to presurgical therapy in the invasive carcinoma. In the lymph node - definite response to presurgical therapy in the metastatic carcinoma. See comment. Lymph-Vascular invasion - not identified Dermal lymph-vascular invasion - not identified Lymph nodes: Number of sentinel lymph nodes examined - 0 Total number of lymph nodes examined (sentinel and nonsentinel) - 11 Number of lymph nodes with macrometastases, micrometastases and isolated tumor cells - 0 Distance metastasis - not applicable Additional pathologic findings: - Extensive area of necrosis, histiocytic reaction and hemorrhage (consistent with presurgical neoadjuvant chemotherapy related changes) - Skin lesions, seborrheic keratosis. - Fibrocystic changes with intraductal hyperplasia without atypia. - Microscopic hyalinized fibroadenoma (0.6 x 0.4 cm) - one lymph node with hemangioma (0.1 cm in greatest dimension). Ancillary studies - previously performed on section of tumor ([id number] / [id number]). ER - positive (38% weak to moderate) MD - negative (0%) Her2 nicko - negative (0) Her2 by dual JENNA - not performed Microcalcifications - not identified Clinical history - Please make reference to previous specimen ([id number]) left breast, core biopsy with diagnosis of poorly differentiated ductal carcinoma, basaloid type. PATHOLOGIC STAGE: pT1a(y) pN0 Mx 3) GKS 08/14/2017 Current therapy: 1) Faslodex and anastrozole. Interim history: Several days after her first Faslodex injection the patient had nausea and vomiting. She presented to the emergency room [facility] and was found to have dehydration in addition to her symptomatology. She was hydrated and treated with antiemetic therapy. She underwent a CT of the brain because she was acting somewhat bizarrely as well. In retrospect that was attributed to dehydration. CT of brain unremarkable. She had also just finished tapering dexamethasone prior to the symptoms occurring. She had not been on proton pump inhibitor therapy. She's been taking omeprazole on a daily basis since then. She received her second injection of Faslodex this past Monday and has not had recurrence of symptoms. In fact she feels very well at this point. She is getting out of the house and doing activities she's not had any respiratory symptoms including cough, wheeze, hemoptysis, shortness of breath at rest and/or with exertion. No chest pain or tightness. All of her previous neurologic symptoms have cleared except for some trouble with imbalance when stepping up and down steps. No symptoms of neuropathy. PMH, medications and allergies personally reviewed by me today. Any changes documented in appropriate section. ROS: Constitutional: No episode of fever, night sweats or shaking chills. Neuro: Denies AYALA, vertigo, dizziness. HEENT: No recent change in voice or hearing. Resp: See above. CVS: Denies PND and orthopnea. GI: Denies dysgeusia. Denies symptoms of stomatitis. Denies dysphagia and odynophagia. Denies reflux, n/v, change in bowel habits and abdominal pain. : Denies dysuria or gross hematuria. No symptoms of bladder outlet obstruction. Endo: Denies hot flashes. Denies polyuria and polydipsia. Denies heat and cold intolerance. Musculoskeletal: Denies bone, joint and back pain.. Derm: Denies rash. Denies jaundice and diffuse pruritis. Heme: Denies unexplained bruising. Psych: Normal mood. PHYSICAL EXAM: Vitals: Blood pressure 108/63, pulse 78, temperature 36.7 ?C (98 ?F), weight 66.2 kg (146 lb). Well-appearing and in no acute distress. EYES: Sclerae are anicteric bilaterally. NECK: Supple. LYMPHATIC: There is no palpable cervical, supraclavicular or inguinal adenopathy. RESPIRATORY: Inspiratory breath sounds are of normal intensity in all murcia. CARDIOVASCULAR: Rhythm is regular. Normal intensity S1/S2. There is no gallop or murmur. BREAST: Left mastectomy site appears healthy and there is no evidence of chest wall nodule or mass. ABDOMEN: The abdomen is nondistended. No organomegaly. No tenderness. Extremities: Now swelling of LEs or ankles now. SKIN: No jaundice or rash. No petechiae. NEUROLOGIC: milieu manager II-XII are grossly intact. She now has normal hand heavy duty custodian strength bilaterally. Upper extremity strength is normal bilaterally. She has a little weakness when stepping up on the exam table. MUSCULOSKELETAL: No muscle wasting. ASSESSMENT/PLAN: (C50.812, Z17.0) Malignant neoplasm of overlapping sites of left breast in female, estrogen receptor positive (HCC) (primary encounter diagnosis) (C78.01) 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 (HCC) (C79.31) Brain metastases (HCC) Assessment: -KPS is 90%. -Patient presented with a neglected breast cancer that was locally advanced and had uncontrollable bleeding. In the interest of starting her treatment urgently, biopsy of the lung masses was deferred. -Post-operatively had 5 mm viable tumor. -Solitary left frontal brain metastasis. s/p GKS. Minimal residual symptoms presently. -I again discussed with her and her sister today the overall treatment plan and plan of care. She is tolerating Faslodex and anastrozole very well. She is not having any side effect of hot flash or musculoskeletal pain. Her recent symptoms of gastritis are most likely secondary to dexamethasone use. I explained this to her and encouraged her to continue Prilosec 40 mg once a day until her prescription (a month's supply) runs out. -We are currently scheduled for CT scans and office visit in November. Plan: -Continue Faslodex and anastrozole. -Can get denosumab 60 mg q 6 months. -Schedule for MRI of the brain in several weeks at [facility]. -Complete 1 months worth of Prilosec. -Follow-up in November as scheduled. Total [id number]-zd-[id number] time was ANDgt;25 minutes with greater than 15 minutes spent discussing the issues outlined above and/or coordinating care. Ky Burkett DO Referring Provider: KY BURKETT [[id number]] Allergies As of Date: 09/22/2017 Noted Allergy Reaction ALCOHOL, UNSPECIFIED 01/31/2017 5 - Intolerance Comments: Recovering alcoholic TETRACYCLINE 01/31/2017 14 - Other: See Comments Comments: Thrush in mouth PHENERGAN (PROMETHAZINE HCL) 09/18/2017 1 - Mental Status Change Date Reviewed: 09/22/2017 Reviewed by: Ky Burkett - Fully Assessed Reason for Visit: Established Patient [175] Primary Visit Diagnosis:Malignant neoplasm of overlapping sites of left breast in female, estrogen receptor positive (HCC) [C50.812, Z17.0] Other Visit Diagnoses: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 ACETAMINOPHEN 325 MG TABLET Take 650 mg by mouth every 6 * METOPROLOL TARTRATE 50 MG TAB* 50 mg twice daily. Medication notes this encounter OMEPRAZOLE 20 MG CAPSULE,DELAYED RELEASE >> Annamarie Irizarry LPN, LPN 09/22/2017 10:54 AM >> ANNAMARIE IRIZARRY MonSep 22, 2017 10:54 AM Started FLUCONAZOLE 100 MG TABLET >> Annamarie Irizarry LPN, LPN 09/22/2017 10:54 AM >> ANNAMARIE IRIZARRY MonSep 22, 2017 10:54 AM discontinued Problem List As Of Date 09/22/2017 Noted Resolved Breast CA (HCC) [C50.919] INVALID FOR*03/21/2017 More... Malignant neoplasm of overlapping sites of left*INVALID FOR* 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 (HC*INVALID FOR* Brain metastases (HCC) [C79.31] INVALID FOR* Visit Notes: >> Annamarie Lim (Shannon) SHANNON Irizarry MonSep 22, 2017 10:57 AM Status: Signed Est pt. , pt. Has multiple questions, wanting to catch up concerning medications Annamarie Irizarry LPN Encounter Status:Closed by KY BURKETT DO on 09/22/17 PROGRESS Observed: 09/18/2017 Status: COMPLETED Source: [place] 10:27 AM [facility] [place] REPOSITORY HNO ID: [id number] Author: Meg Weber (Sw) Service: (none) Author Type: Chart Picker Type: Progress Notes Filed: 09/18/2017 10:30 AM Note Text: SOCIAL WORK FOLLOW UP NOTE: [facility] Date of service: September 18, 2017 Anna Barrera is being seen for a follow up social work visit. Today's visit includes: patient and [address] [place] [address] cash applications representative TOPICS ADDRESSED: coping/support and mental health needs; RICARDO met with patient to follow-up regarding [facility] referral. RICARDO called the [address] [place] [address] staff that tried reaching out to patient to have her call patient again since they missed each other. SW encouraged patient to answer her phone for unknown numbers over the next few days. Patient agreeable. Patient also reports needing assistance with grocery shopping since her eyesight is poor and she is having increased emotional lability. Another patient sitting in the lobby approached patient and offered to take her to the store. Patient was very appreciative and talked with the other patient for a minute to discuss what she is going through. SW was looking into private duty home health services through [facility], but patient would like to contact the other patient since they can also provide support to one another. PLAN: Referral to appropriate support group, Continue follow up as needed and Provide emotional support to patient/family F/U APPOINTMENT: CALE Campbell Observed: 09/18/2017 Status: COMPLETED Source: [place] 12:00 AM [facility] REPOSITORY Social Work (JAYA) ANNA BARRERA ([id number]) 1940 F Date Time Provider Department 09/18/17 MEG WEBER (SW) During your visit today, we recorded the following information about you: CALE Rose 09/18/2017 10:30 AM Signed SOCIAL WORK FOLLOW UP NOTE: [facility] Date of service: September 18, 2017 Anna Barrera is being seen for a follow up social work visit. Today's visit includes: patient and [address] [place] [address] cash applications representative TOPICS ADDRESSED: coping/support and mental health needs; RICARDO met with patient to follow-up regarding 4[facility] referral. RICARDO called the [address] [place] [address] staff that tried reaching out to patient to have her call patient again since they missed each other. SW encouraged patient to answer her phone for unknown numbers over the next few days. Patient agreeable. Patient also reports needing assistance with grocery shopping since her eyesight is poor and she is having increased emotional lability. Another patient sitting in the lobby approached patient and offered to take her to the store. Patient was very appreciative and talked with the other patient for a minute to discuss what she is going through. SW was looking into private duty home health services through [facility], but patient would like to contact the other patient since they can also provide support to one another. PLAN: Referral to appropriate support group, Continue follow up as needed and Provide emotional support to patient/family F/U APPOINTMENT: CALE Campbell Allergies As of Date: 09/18/2017 Noted Allergy Reaction ALCOHOL, UNSPECIFIED 01/31/2017 5 - Intolerance Comments: Recovering alcoholic TETRACYCLINE 01/31/2017 14 - Other: See Comments Comments: Thrush in mouth PHENERGAN (PROMETHAZINE HCL) 09/18/2017 1 - Mental Status Change Date Reviewed: 09/18/2017 Reviewed by: Cele Kim LPN - Fully Assessed Reason for Visit: Social Work Services [507] Cmt: support Prescriptions as of 09/18/2017 Sig: OMEPRAZOLE 20 MG CAPSULE,MAMADOU* Take 2 capsules by mouth once* ONDANSETRON 4 MG DISINTEGRATI* Take 4 mg by mouth three time* FLUCONAZOLE 100 MG TABLET Take 100 mg by mouth once tyler* LORAZEPAM 0.5 MG TABLET Take 1 tablet by mouth three * ANASTROZOLE 1 MG TABLET Take 1 tablet by mouth once d* DEXAMETHASONE 4 MG TABLET 4 mg tab tid x 4 days;4 mg ta* DEXAMETHASONE 6 MG TABLET Take 6MG BID x 5 days, then 6* FAMOTIDINE 20 MG TABLET Take 1 tablet by mouth twice * LEVOTHYROXINE 125 MCG TABLET 125 mcg once daily. ACETAMINOPHEN 325 MG TABLET Take 650 mg by mouth every 6 * METOPROLOL TARTRATE 50 MG TAB* 50 mg twice daily. Problem List As Of Date 09/18/2017 Noted Resolved Breast CA (HCC) [C50.919] INVALID FOR*03/21/2017 More... Malignant neoplasm of overlapping sites of left*INVALID FOR* 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 (HC*INVALID FOR* Brain metastases (HCC) [C79.31] INVALID FOR* Encounter Status:Closed by MEG WEBER on 09/18/17 12 LEAD ELECTROCARDIOGRAM Observed: 09/12/2017 Status: F Source: [place] 1:38 PM [facility] REPOSITORY [facility] Cardiovascular Services [address] [place] [address] 12 Lead EKG 09/08/17 1437 MR#: [id number] Acct: [id number] Name: ANNA BARRERA Rep #: [id number] : 1940 77 From: Delvin Coleman MD Attending Dr: Carl Morales MD Status: DIS ABBEY Ordering Dr: Jose May MD Date: 09/08/17 [place] [facility]: F C Admitted: 09/08/17 Test Reason : VOMITING Blood Pressure : / mmHG Vent. Rate : 087 BPM Atrial Rate : 087 BPM P-R Int : 146 ms QRS Dur : 098 ms QT Int : 372 ms P-R-T Axes : 023 -34 032 degrees QTc Int : 447 ms Normal sinus rhythm Left axis deviation Voltage criteria for left ventricular hypertrophy Abnormal ECG Confirmed by DELVIN COLEMAN MD ([id number]), supervising editor trailer DANIELLE STAHL ([id number]) on 09/12/2017 1:38:18 PM Referred By: MEJIA Confirmed By:DELVIN COLEMAN MD 09/12/17 1338 Date Delvin Coleman MD CC: Jose May MD; Tayla Espinal DO; Carl Morales MD Signed DISCHARGE SUMMARY Observed: 09/10/2017 Status: F Source: [place] 4:37 PM [facility] REPOSITORY [facility] Medical Records Department [address] [place] [address] Discharge Summary 09/10/17 0941 MR#: [id number] Acct: [id number] Name: ANNA BARRERA Rep #: [id number] : 1940 77 From: Carl Morales MD PCP: Tayla Espinal DO Status: DIS ABBEY Y Location: MS2 [id number] ADDENDUM by Carl Morales MD on 09/10/17 at 1637 Code Visit OBSV Mac AND M: [id number] Observation care discharge 09/10/17 1637 <Electronically signed by Carl Morales MD> Date Carl Morales MD cc: Tayla Espinal DO; Carl Morales MD * Signed Discharge Date and Diagnosis - Problem List Patient Problems: Active and Suspected Problems (Last Reviewed 08/23/17 @ 10:28 by Sharon Jaramillo) Gastroenteritis (Acute) Medication adverse effect (Acute) Date of Admission: 09/08/17 Date of Discharge: 09/10/17 - Primary Discharge Diagnosis Active and Suspected Problems (Last Reviewed 08/23/17 @ 10:28 by Sharon Jaramillo) Gastroenteritis (Acute) Medication adverse effect (Acute) - Secondary Discharge Diagnosis Chronic Problems (Last Reviewed 08/23/17 @ 10:28 by Sharon Jaramillo) Status post gamma knife treatment (Chronic) 08/14/2017 History of modified radical mastectomy of left breast (Chronic) 2017 Left breast mass (Chronic) Hypothyroidism (Chronic) History of pericardial effusion (Chronic) Status post pericardiocentesis. History of viral pericarditis (Chronic) History of atrial fibrillation (Chronic) Hospital Course and Treatment Operations: - Summary of Care Provided: This is a 77 year old F 2 of breast cancer with metastasis to the brain status post gamma knife radiation, she w presented to the ER with nausea vomiting and diarrhea. She was given zofran and phenergan and became very confused. The patient was felt to have acute gastroenteritis and dehydration and then admitted to the hospital for IV hydration and anti-emetics she cannot tolerate regular diet. 1. Acute gastroenteritis ; improved. 2. acute Encephalopathy; improved, she is now alert and oriented to time place and person. 3. Dehydration ; well hydrated now. 4. Paroxysmal atrial fibrillation; she is in sinus, we will continue her Metoprolol 5. Hypothyroidism ; she will continue her Synthroid 6. Oropharyngeal candidiasis; started on on Diflucan p.o. 7. generalized weakness PT/OT. 8. History left breast cancer with brain mets status post gamma knife radiation, f/u Dr. Burkett. Discharge Diet: No Restrictions Discharge Activity: Return to Normal Activity Home Medications: Medications to take at Discharge Lorazepam [Ativan] 0.25 mg PO TID PRN PRN 07/14/13 Metoprolol Tartrate [Lopressor (beta mike)] 50 mg PO BIDCM 07/14/13 Levothyroxine [Synthroid] 250 mcg PO QWEEK 06/15/17 Ondansetron [Zofran Odt] 8 mg PO Q8H PRN PRN 07/15/17 Acetaminophen [Tylenol Tablet] 325 mg PO Q6H PRN PRN 09/08/17 Fluconazole [Diflucan] 100 mg PO DAILY #10 tab 09/10/17 Levothyroxine [Synthroid] 125 mcg PO DAILY 09/10/17 Ondansetron [Zofran Odt] 4 mg PO Q8H PRN PRN #20 tab 09/10/17 Following Prescrptions Were Given to Patient: Ondansetron [Zofran Odt] 4 mg PO Q8H PRN PRN #20 tab PRN Reason: Nausea/Vomiting Fluconazole [Diflucan] 100 mg PO DAILY #10 tab Primary Care Physician: Tayla Espinal DO [Primary Care Provider] - In 1 Week Disposition: Home Patient Condition:: Good Medical Necessity - Tobacco Use Smoking Status: Former smoker Tobacco Use: Non-smoker Meaningful Use Info Meaningful Use Diagnoses (Choose all that apply): None applicable 09/10/17 0946 <Electronically signed by Carl Morales MD> Date Carl Morales MD Cosigner Signature (if applicable): Date CC: Tayla Espinal DO; Carl Morales MD Signed DISCHARGE INSTRUCTION Observed: 09/10/2017 Status: F Source: [place] 9:40 AM [facility] REPOSITORY [facility] Medical Records Department [address] [place] [address] Instructions for Home/Discharge Instructions 09/10/17 0939 MR#: [id number] Acct: [id number] Name: ANNA BARRERA Rep #: [id number] : 1940 77 From: Carl Morales MD PCP: Tayla Espinal DO Status: ADM ABBEY - Discharge Diagnoses Current Active Problems: Current Active and Chronic Problems (Last Reviewed 08/23/17 @ 10:28 by Sharon Jaramillo) Gastroenteritis (Acute) Medication adverse effect (Acute) You will use the following diet at home:: Regular Discharge Activity: Return to Normal Activity Allergies/Adverse Reactions: Allergies shellfish derived Allergy (Verified 09/08/17 13:13) Hives tetracycline [Tetracycline] Allergy (Verified 09/08/17 17:11) pt unsure alcohol Adverse Reaction (Verified 09/08/17 13:13) Unknown promethazine [From Phenergan] Adverse Reaction (Verified 09/10/17 01:08) Other CONFUSION Medications to take at Discharge Lorazepam [Ativan] 0.25 mg PO TID PRN PRN 07/14/13 Metoprolol Tartrate [Lopressor (beta mike)] 50 mg PO BIDCM 07/14/13 Levothyroxine [Synthroid] 250 mcg PO QWEEK 06/15/17 Ondansetron [Zofran Odt] 8 mg PO Q8H PRN PRN 07/15/17 Acetaminophen [Tylenol Tablet] 325 mg PO Q6H PRN PRN 09/08/17 Fluconazole [Diflucan] 100 mg PO DAILY #10 tab 09/10/17 Levothyroxine [Synthroid] 125 mcg PO DAILY 09/10/17 Ondansetron [Zofran Odt] 4 mg PO Q8H PRN PRN #20 tab 09/10/17 The following prescriptions were given: Ondansetron [Zofran Odt] 4 mg PO Q8H PRN PRN #20 tab PRN Reason: Nausea/Vomiting Fluconazole [Diflucan] 100 mg PO DAILY #10 tab Primary Care Physician: Tayla Espinal DO [Primary Care Provider] - In 1 Week Proposed Discharge Date: 09/10/17 09/10/17 0940 <Electronically signed by Carl Morales MD> Date Carl Morales MD CC: Tayla Espinal DO CBC W/DIFF, AUTOMATED Collected: 09/09/2017 Status: F Source: [place] 6:10 AM [facility] REPOSITORY TYPE CODE TESTS RESULT OUT OF RANGE REFERENCE UNITS LAB L100.1000 4.4-11.0 K/mm3 Low WBC 2.9 LAB L100.1200 4.2-5.4 M/mm3 Low RBC 3.43 LAB L100.1300 12.0-15.0 g/dl Low HGB 10.0 LAB L100.1400 37-47 % Low HCT 30.8 LAB L100.1500 81-99 fL Normal MCV 89.8 LAB L100.1600 27.0-32.0 pg Normal MCH 29.2 LAB L100.1700 32-36 g/gl Normal MCHC 32.5 LAB L100.1810 11.6-14.6 % High RDW CV 15.2 LAB L100.1820 35.1-43.9 fl High RDW SD 48.6 LAB L100.1900 150-450 K/mm3 Low PLT 131 LAB L100.2000 6.2-12.0 fl Normal MPV 9.0 LAB L100.2100 47-70 % Normal NEUT% 50.4 LAB L100.2200 19-41 % Normal LY% 34.6 LAB L100.2300 0-10 % High MONO% 13.7 LAB L100.2400 0-5 % Normal EO% 0.3 LAB L100.2500 0-1 % Normal BASO% 0.3 LAB L100.2550 0.0-0.9 % Normal IM GRAN % 0.700 Result Comment: IG% - Immature Granulocytes (promyelocytes, myelocytes and metamyelocytes) > 1% indicates that a LEFT SHIFT is Present. LAB L100.2620 2.0-7.7 X10 3/uL Low Absolute Neut 1.5 LAB L100.2720 0.83-4.51 X10 3/ul Normal Absolute Lymph 1.01 Performed By: #### L100.0100 #### [facility] [address] [place], [address] BASIC METABOLIC Collected: 09/09/2017 Status: F Source: [place] PROFILE (BMP) 6:10 AM [facility] REPOSITORY TYPE CODE TESTS RESULT OUT OF RANGE REFERENCE UNITS LAB L501.0100 74-106 mg/dL Normal GLU 81 Result Comment: Please note revised GLUCOSE reference range effective 2017. LAB L501.1000 7-18 mg/dL Normal BUN 12 LAB L501.1100 0.55-1.02 mg/dL Low CREAT,SERUM 0.34 Result Comment: The validity of the calculated GFR AND GFRAA in patients over 70 years has not been determined. Clinical correlation is essential. LAB L501.1110 >60 mL/min Normal EST GFR 200 Result Comment: Non- GFR Calc LAB L501.1115 >60 mL/min Normal EST GFR - AA 242 Result Comment: GFR Calc LAB L501.1255 ml/min Normal Estimated CRCL 39.59 LAB L501.1300 10-20 RATIO High BUN/CRE 35.5 LAB L501.2200 8.5-10 mg/dL Low .1 CA 8.2 LAB L501.5300 136-14 mmol/L Normal 5 NA 138 LAB L501.5600 3.5-5. mmol/L Normal 1 K 3.6 LAB L501.5900 98-107 mmol/L Normal CL 106 LAB L501.6100 21.0-3 mmol/L Normal 2.0 CO2 25.0 LAB L501.6200 5-15 Normal GAP 7 Performed By: #### L500.2500 #### [facility] [address] [place], [address] HISTORY AND PHYSICAL Observed: 09/08/2017 Status: F Source: [place] EXAM 6:51 PM [facility] REPOSITORY [facility] Medical Records Department [address] [place] [address] History and Physical 09/08/17 1807 MR#: [id number] Acct: [id number] Name: ANNA BARRERA Rep #: [id number] : 1940 77 From: Andrew GARCIA PCP: Tayla Espinal DO Status: ADM ABBEY Y [place] [id number] ADDENDUM by Yosef Mcgowan DO on 09/08/17 at 1850 Code Visit Seen and examined in the emergency room independently of Andrew Baugh, she came to the ER at [facility] with complaints of nausea, vomiting, and diarrhea. Workup in the ER indicated no obvious cause of her symptoms-it was felt that she probably had viral gastroenteritis. However, which he was evaluated for discharge from the ER it was noted that the patient was confused and had pulled out her IV and taken off her clothes. CT scan of the brain was then performed which showed an old area of metastatic foci in the left frontal lobe which she had undergone gamma knife treatment in July 2017, but otherwise, no obvious abnormality was noted. Her chest x-ray was unremarkable. Labs showed a slightly decreased white blood cell count. Patient was afebrile. On examination, patient was confused as to the year, date, and at times was talking nonsensical. She did know her oncologist was Dr. Burkett, she was able to give some medical information such as her past surgeries. Patient had been given Zofran and Phenergan IV for nausea and I suspect that she may have had a reaction to these medications. I feel the patient should be placed in observation status for acute encephalopathy, possibly toxic in nature from medication and viral gastroenteritis. She will be given IV fluids and observed. I do not believe the patient needs a repeat MRI of the brain at this time. I did discuss the case with Dr. Burkett her oncologist and he says it is unlikely that another metastatic foci would occur this soon after her last gamma knife treatment. I have reviewed Andrew Baugh's history and physical and plan of care and endorse both OBSV E AND M: [id number] Initial observation care L3 09/08/17 1851 <Electronically signed by Yosef Mcgowan DO> Date Yosef Mcgowan DO cc: RADHA Baugh; Tayla Espinal DO; Yosef Tereletsky DO * Signed Problem List (1) Gastroenteritis Status: Acute (2) Medication adverse effect Status: Acute (3) Status post gamma knife treatment Status: Chronic Comment: 08/14/2017 (4) History of modified radical mastectomy of left breast Status: Chronic Comment: 2017 (5) Left breast mass Status: Chronic (6) Hypothyroidism Status: Chronic (7) History of atrial fibrillation Status: Chronic History of Present Illness Date of Admission: 09/08/17 Chief Complaint: vomiting and diarrhea The patient is a 77 year old F who presented to the ER with nausea vomiting and diarrhea. She was given zofran and phenergan and became very confused. She is resting in bed in no acute distress but is answering some questions inappropriately. She cannot get the day, date, or month right, but knows where she is and why. She thinks she was brought here yesterday by a friend. She knows she came here because she has had many episodes of vomiting and diarrhea. 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 She is a patient of Dr. Burkett and had surgery in June and last chemo in April. She lives at home by herself. She has no abdominal pain. Hx is limited as the patient is confused and answers some questions completely inappropriately and others seemingly fine. [] Past Medical History Past Medical History (Chronic Problems): Chronic Problems (Last Reviewed 08/23/17 @ 10:28 by Sharon Jaramillo) Status post gamma knife treatment (Chronic) 08/14/2017 History of modified radical mastectomy of left breast (Chronic) 2017 Left breast mass (Chronic) Hypothyroidism (Chronic) History of pericardial effusion (Chronic) Status post pericardiocentesis. History of viral pericarditis (Chronic) History of atrial fibrillation (Chronic) Allergies shellfish derived Allergy (Verified 09/08/17 13:13) Hives tetracycline [Tetracycline] Allergy (Verified 09/08/17 17:11) pt unsure alcohol Adverse Reaction (Verified 09/08/17 13:13) Unknown Home Medications: Ambulatory Orders Medication Instructions Recorded Lorazepam [Ativan] 0.25 mg PO TID PRN PRN 07/14/13 Metoprolol Tartrate [Lopressor 50 mg PO BIDCM 07/14/13 Surgical History: - - History of pericardiocentesis, left mastectomy, gamma knife Psychiatric History: Anxiety SAMPLE CARD MAKER History: No pertinent SAMPLE CARD MAKER history Lives: Alone Smoking Status: Former smoker Tobacco Use: Non-smoker Alcohol: None Drugs: None - *Family History Maternal History Items: No pertinent history Paternal History Items: No pertinent history Review of Systems Unable to obtain accurate/complete ROS d/t: patient confused VTE Information - Inpt Only VTE Present on Admission: No VTE Mechan Device Prophylaxis: SCD's VTE Pharm Prophylaxis ordered?: Yes Patient Problems: Active and Suspected Problems (Last Reviewed 08/23/17 @ 10:28 by Sharon Jaramillo) Gastroenteritis (Acute) Medication adverse effect (Acute) - Physical Exam General: Alert, Oriented x3, Cooperative HEENT: Atraumatic, PERRLA, EOMI, Normocephalic Neck: Supple, No JVD, Negative Carotid Bruits Lungs: Clear to auscultation, Normal air movement Cardiovascular: Regular rate, No murmurs Abdomen: Bowel Sounds Present, Soft, Non Tender Extremities: No edema, Capillary Refill Less than 3 Seconds Skin: No rashes, No breakdown Musculoskeletal: No Tenderness to Palpation of Joints or Extremities Neurological: Cranial nerves II-XII grossly intact Psych/Mental Status: Normal Affect, Appropriate Vital Signs Temp Pulse Resp BP Pulse Ox 97.8 F 112 H 16 144/61 H 93 09/08/17 13:11 09/08/17 17:15 09/08/17 17:15 09/08/17 17:15 09/08/17 17:15 Oxygen Delivery Method Room Air Weight: 64.41 kg Body Mass Index (BMI) 25.1 Laboratory Tests Past 24 Hrs WBC 2.9 L RBC 4.31 Hgb 12.7 Hct 38.5 MCV 89.3 MCH 29.5 Assessment/Plan Active and Suspected Problems (Last Reviewed 08/23/17 @ 10:28 by Sharon Jaramillo) Gastroenteritis (Acute) Medication adverse effect (Acute) 1. Acute gastroenteritis - suspect viral - continue supportive care with IV fluids and PRN medications, avoid phenergan as it likely triggered the confusion. Unlikely to have been zofran as she takes that at home. She has a low WBC count, and she is afebrile.Lipase neg. Trop neg. AST ALT somewhat high. T bili normal. CT abdomen pelvis with benign liver cysts. She had gastroenteritis in June and was positive for norovirus at that time. CXR neg. 2. Adverse medication reaction - confusion - likely 2/2 phenergan. As she had a hx of brain mets if she remains confused tomorrow may need to have an MRI of the brain to look for new mets. CT brain shows hypodensity c/w prior known metastatic lesion on prior MRI. 3. Hx left breast cancer with brain mets - Pt of Dr. Burkett, s/p left radical mastectomy June, chemo last April. 4. Hx AF - in NSR. On metoprolol. She missed her metoprolol today. 5. Hypothyroidism - continue synthroid. DVT ppx: lovenox This patient was seen by Andrew Baugh PA-C under the supervision of Doctor Juan M. 09/08/17 1820 <Electronically signed by Andrew GARCIA> Date Andrew GARCIA 09/08/17 184<Electronically signed by Yosef Mcgowan DO> Cosigner Signature: Date (if applicable) Yosef Mcgowan DO CC: RADHA Baugh; Tayla Espinal DO; Yosef Mcgowan DO Signed EMERGENCY DEPARTMENT Observed: 09/08/2017 Status: F Source: [place] SUMMARY 5:56 PM [facility] REPOSITORY [facility] Medical Records Department [address] [place] [address] Emergency Department Summary 09/08/17 1630 MR#: [id number] Acct: [id number] Name: ANNA BARRERA Rep #: [id number] : 1940 77 From: Jose May MD PCP: Tayla Espinal DO Status: REG ER ADDENDUM by Srinivas Gabriel on 09/08/17 at 1752 Patient was endorsed to me by the outgoing physician with instructions to check on CT and chest x-ray and admit the patient. CT brain showed no acute pathology. Chest x-ray showed no acute pathology. Repeat evaluation of the patient at 1750 shows that she is alert and oriented only 2, confused, but more appropriate and calm her. I discussed patient's case with Dr. Salgado, and the patient will be admitted for encephalopathy. Date Srinivas Gabriel MD cc: Tayla Espinal DO * Signed - ER Visit Summary Date of Service: 09/08/17 Chief Complaint: Nausea and vomiting History of Present Illness: The patient is a 77 F with nausea and vomiting that started yesterday. She also feels tired. She does not have any abdominal pain. She is having normal bowel movements. Denies fever or urinary symptoms. Denies anything like this in the past. She has a history of breast cancer. Her last chemotherapy treatment was in April. She had a mastectomy in June and no issues since then. Physical Examination: Vital signs unremarkable. Patient alert and oriented. No acute distress. She has a depressed mood and flat affect. Heart regular. Lungs clear. Abdomen soft and nontender. No masses or distention. Skin appears normal in color without jaundice or pallor. Test Results: EKG shows sinus rhythm at a rate of 87. No acute changes, infarction, or ischemia. White count 2.9. Liver enzymes slightly elevated. Lipase normal. Urinalysis normal. [...] will need hospitalization. Results are still pending. The oncoming doctor will check. Treatment Plan: As above Disposition: Admission Impression: 1. Nausea and vomiting 2. Delirium This note was generated with YellowScheduleation software. It may contain incorrect words, spelling, [...] your Primary Care Provider. Call [facility] ([phone]) or report to the closest Emergency Room. Call 911 if necessary. 09/08/17 1712 <Electronically signed by Jose May MD> Date Jose May MD Cosigner Signature (If Indicated): Date CC: Tayla Espinal DO BRAIN/HEAD WITHOUT Observed: 09/08/2017 Status: F Source: [place] CONTRAST 4:28 PM [facility] REPOSITORY [facility] Imaging Services [address] [place] [id number] Brain/Head without Contrast MR#: [id number] Acct: [id number] Name: ANNA BARRERA Rep #: [id number] : 1940 F 77 From: Nasrin Orta MD PCP: Tayla Espinal DO Status: REG ER Study: Brain/Head without Contrast Date of Exam: 09/08/17 Exam# [id number] Ordering Dr: Jose May MD STUDY: CT BRAIN WITHOUT CONTRAST REASON FOR EXAM: Female, 77 years old. Alteration of awareness RADIATION DOSAGE (If Supplied By Facility): CTDIvol = ( 44.99 ) mGy, DLP = ( 796.11 ) mGycm TECHNIQUE: Transaxial CT imaging of the brain was performed without administration of intravenous contrast material. Individualized dose optimization techniques were used for this CT. COMPARISON: Brain MRI dated July 31, 2017 FINDINGS: The soft tissues are unremarkable. The osseous structures are unremarkable. Normal size ventricles and extra-axial spaces for the patient's age. The white matter tracts are unremarkable. The basal ganglia and thalami are unremarkable. No abnormalities are seen in the brainstem. The cerebellum is unremarkable. There is subtle hypodensity in the left frontal lobe. There is no intracranial hemorrhage. There are no findings of acute ischemia. The visualized sinuses are unremarkable. CT/Brain/Head without Contrast IMPRESSION: No acute intracranial abnormalities. There is no acute hemorrhage. There is subtle hypodensity in the left frontal lobe corresponding in location to the known metastatic lesion seen on the prior MRI. Electronically Signed: Nasrin Orta MD at 17:11 EDT Tel Direct: [phone], Service support , CC: Jose May MD; Tayla Espinal DO Kitchen Helper: Signed CHEST 1 VIEW Observed: 09/08/2017 Status: F Source: [place] (PORTABLE) 4:28 PM [facility] REPOSITORY [facility] Imaging Services [address] [place] [address] Chest 1 View (Portable) MR#: [id number] Acct: [id number] Name: ANNA BARRERA Rep #: [id number] : 1940 F 77 From: Nasrin Orta MD PCP: Tayla Espinal DO Status: REG ER Study: Chest 1 View (Portable) Date of Exam: 09/08/17 Exam# [id number] Ordering Dr: Jose May MD STUDY: X-RAY CHEST REASON FOR EXAM: Female, 77 [...] There are diffuse degenerative changes of the visualized spine. The visualized ribs, clavicles, and shoulders are unremarkable. There are surgical clips in the left axilla. RAD/Chest 1 View (Portable) IMPRESSION: No acute cardiopulmonary abnormalities. There is minimal bibasilar atelectasis. Electronically Signed: Nasrin Orta MD at 17:17 EDT Tel Direct: [phone], Service support , CC: Jose May MD; Tayla Espinal DO Kitchen Helper: Signed URINALYSIS, COMPLETE Collected: 09/08/2017 Status: F Source: [place] 3:50 PM [facility] REPOSITORY Order Comment: Order Date: 09/08/17 How was Urine Obtained? EQUIPMENT MAINTENANCE TECHNICIAN TO SPECIFY TYPE CODE TESTS RESULT OUT OF REFERENCE UNITS RANGE LAB L400.3000 Yellow COLOR Normal Straw LAB L400.3050 Clear CLARITY Normal Clear LAB L400.3200 Normal mg/dl GLUCOSE, UR Normal Normal LAB L400.3300 Negative mg/dL BILIRUBIN Normal URINE Negative LAB L400.3400 Negative mg/dl KETONE UR Normal Negative LAB L400.3465 1.002-1.030 SP.GR. Normal DIPSTX 1.010 LAB L400.3550 5.0 - 8.0 pH UR Normal 7.0 LAB L400.3600 Negative mg/dl PROT DIPSTX Normal Negative LAB L400.3700 Normal mg/dl UROBILI Normal Normal LAB L400.3750 Negative NITRITE UR Normal Negative LAB L400.3780 Negative /ul OCCULT Normal BLOOD-UR Negative LAB L400.3800 Negative /ul LEUK Normal ESTERASE Negative LAB L400.4050 0-5 /hpf WBC Normal 0 SEEN LAB L400.4100 0-5 /hpf RBC-UA Normal 0 SEEN LAB L400.4150 5-10 /hpf SQUAM EPI Normal 0-5 SEEN LAB L400.4300 None Seen /hpf BACTERIA Normal 0 SEEN LAB L400.4350 <or=2+ /hpf MUCUS, Normal URINE 0 SEEN LAB L400.4200 0-5 /hpf Normal TRANSITIONAL EP 0-5 SEEN Performed By: #### L400.0001 #### [facility] [address] [place], [address] CBC W/DIFF, AUTOMATED Collected: 09/08/2017 Status: C Source: [place] 2:20 PM [facility] REPOSITORY TYPE CODE TESTS RESULT OUT OF RANGE REFERENCE UNITS LAB L100.1000 4.4-11.0 K/mm3 Low WBC 2.9 LAB L100.1200 4.2-5.4 M/mm3 Normal RBC 4.31 LAB L100.1300 12.0-15.0 g/dl Normal HGB 12.7 LAB L100.1400 37-47 % Normal HCT 38.5 LAB L100.1500 81-99 fL Normal MCV 89.3 LAB L100.1600 27.0-32.0 pg Normal MCH 29.5 LAB L100.1700 32-36 g/gl Normal MCHC 33.0 LAB L100.1810 11.6-14.6 % High RDW CV 15.0 LAB L100.1820 35.1-43.9 fl High RDW SD 48.7 LAB L100.1900 150-450 K/mm3 Normal PLT 150 LAB L100.2000 6.2-12.0 fl Normal MPV 9.2 LAB L100.2100 47-70 % High NEUT% 73.6 LAB L100.2200 19-41 % Low LY% 17.1 LAB L100.2300 0-10 % Normal MONO% 7.7 LAB L100.2400 0-5 % Normal EO% 0.3 LAB L100.2500 0-1 % Normal BASO% 1.0 LAB L100.2550 0.0-0.9 % Normal IM GRAN % 0.300 Result Comment: IG% - Immature Granulocytes (promyelocytes, myelocytes and metamyelocytes) > 1% indicates that a LEFT SHIFT is Present. LAB L100.2620 2.0-7.7 X10 3/uL Normal Absolute Neut 2.1 LAB L100.2720 0.83-4.51 X10 3/ul Low Absolute Lymph 0.49 LAB L100.9900 Normal PATH REV Reviewed Result Comment: Leukopenia. Clinical correlation necessary. Young Malcolm M.D. 09/11/17 AMENDED REPORT 09/11/17 1344 PATH REV previously reported as: Safia artie Performed By: #### L100.0100 #### [facility] [address] [place], [address] COMPREHENSIVE METABOLIC Collected: 09/08/2017 Status: F Source: [place] PROFIL 2:20 PM [facility] REPOSITORY Order Comment: 'TROP' Serial specimen #1, #2, #3, or #4: 1 TYPE CODE TESTS RESULT OUT OF RANGE REFERENCE UNITS LAB L501.0100 74-106 mg/dL Normal GLU 106 Result Comment: Fasting Glucose result from 100 to 125 mg/dL suggests IMPAIRED HOMEOSTASIS per A.D.A. criteria. Please note revised GLUCOSE reference range effective 2017. LAB L501.1000 7-18 mg/dL Normal BUN 14 LAB L501.1100 0.55-1.02 mg/dL Low CREAT,SERUM 0.54 Result Comment: The validity of the calculated GFR AND GFRAA in patients over 70 years has not been determined. Clinical correlation is essential. LAB L501.1110 >60 mL/min Normal EST GFR 117 Result Comment: Non- GFR Calc LAB L501.1115 >60 mL/min Normal EST GFR - AA 142 Result Comment: GFR Calc LAB L501.1255 ml/min Normal Estimated CRCL 39.59 LAB L501.1300 10-20 RATIO High BUN/CRE 26.1 LAB L501.1500 6.4-8. g/dL Normal 2 T PROT 6.4 LAB L501.1800 3.2-5. g/dL Low 0 ALB 3.1 LAB L501.1950 2.2-4. g/dL Normal 2 GLOB 3.3 LAB L501.2000 0.9-2. RATIO Normal 4 A/G 0.9 LAB L501.2200 8.5-10 mg/dL Normal .1 CA 9.2 LAB L501.4100 15-37 U/L High AST 42 LAB L501.4305 45-117 U/L Normal ALK P 95 LAB L501.4405 13-56 U/L High ALT 88 Result Comment: Please note revised ALT reference range effective 2017. LAB L501.4600 0.20-1.00 mg/dL Normal T BILI 0.40 LAB L501.5300 136-145 mmol/L Normal NA 138 LAB L501.5600 3.5-5.1 mmol/L Normal K 3.6 LAB L501.5900 98-107 mmol/L Normal CL 102 LAB L501.6100 21.0-32.0 mmol/L Normal CO2 31.0 LAB L501.6200 5-15 Normal GAP 5 Performed By: #### L500.4050, L501.2450, L501.4010 #### [facility] [address] [place], [place], [id number] LIPASE Collected: 09/08/2017 Status: F Source: [place] 2:20 PM [facility] REPOSITORY Order Comment: 'TROP' Serial specimen #1, #2, #3, or #4: 1 TYPE CODE TESTS RESULT OUT OF RANGE REFERENCE UNITS LAB L501.2450 73-393 U/L Normal LIPASE 389 Performed By: #### L500.4050, L501.2450, L501.4010 #### [facility] [address] [place], [place], [id number] TROPONIN-I Collected: 09/08/2017 Status: F Source: [place] 2:20 PM [facility] REPOSITORY Order Comment: 'TROP' Serial specimen #1, #2, #3, or #4: 1 TYPE CODE TESTS RESULT OUT OF RANGE REFERENCE UNITS LAB L501.4010 <0.06 ng/mL Normal < 0.02 TROPONIN-I Result Comment: TROPONIN-I EXPECTED VALUES <0.05 NEGATIVE 0.06 - 0.59 AT RISK OF VA > OR = 0.60 SUGGEST VA Performed By: #### L500.4050, L501.2450, L501.4010 #### [facility] [address] [place], [place], [address] ABDOMEN/PELVIS W IV CONT Observed: 09/08/2017 Status: F Source: [place] ONLY 2:12 PM [facility] REPOSITORY [facility] Imaging Services [address] [place] [address] Abdomen/Pelvis W IV Cont ONLY MR#: [id number] Acct: [id number] Name: ANNA BARRERA Rep #: [id number] : 1940 F 77 From: Terence Calero MD PCP: Tayla Espinal DO Status: REG ER Study: Abdomen/Pelvis W IV Cont ONLY Date of Exam: 09/08/17 Exam# [id number] Ordering Dr: Jose May MD STUDY: CT ABDOMEN AND PELVIS WITH CONTRAST REASON FOR EXAM: Female, 77 years old. N/V, WEAKNESS, VOMITTING, HX LT BREAST CA RADIATION DOSAGE (If Supplied By Facility): CTDIvol = ( 11.80 ) mGy, DLP = ( 728.53 ) mGycm TECHNIQUE: Transaxial images were obtained from the dome of the diaphragm to the symphysis pubis without oral contrast. 100 ml of Isovue 300 contrast was administered. Sagittal and coronal images were reconstructed. Individualized dose optimization techniques were used for this CT. COMPARISON: None. FINDINGS: The visualized lung bases demonstrate subsegmental atelectasis. The visualized portions of the heart are within normal limits. Multiple decrease attenuation lesions are seen in the liver the largest is in segment #7 measures 1 cm are consistent with benign cysts. Normal gallbladder and extrahepatic biliary system. Normal spleen. Normal pancreas. Normal bilateral adrenal glands. Normal right kidney. Normal left kidney. There is a small hiatal hernia. Normal small intestine. Normal colon. There is non-visualization of the appendix. Normal abdominal aorta. Normal inferior vena cava. Normal retroperitoneum. Normal urinary bladder. Normal abdominal wall. There are diffuse degenerative changes and demineralization of the visualized lumbar spine. CT/Abdomen/Pelvis W IV Cont ONLY IMPRESSION: Multiple decrease attenuation lesions are seen in the liver the largest is in segment #7 measures 1 cm are consistent with benign cysts. Electronically Signed: Terence Calero MD at 15:42 EDT Tel , Service support , CC: Jose May MD; Tayla Espinal DO Kitchen Helper: Signed TSH Collected: 09/08/2017 Status: F Source: [place] 10:00 AM [facility] REPOSITORY TYPE CODE TESTS RESULT OUT OF RANGE REFERENCE UNITS LAB TSH 0.400-5.500 uU/mL TSH 0.694 Performed By: #### TSH, FT4 #### [facility] [address] [place] [address] FREE T4 Collected: 09/08/2017 Status: F Source: [place] 10:00 AM [facility] REPOSITORY TYPE CODE TESTS RESULT OUT OF RANGE REFERENCE UNITS LAB FT4 0.9-1.7 ng/dL Free T4 1.5 Performed By: #### TSH, FT4 #### [facility] [address] [place] [address] CNPN Observed: 09/08/2017 Status: COMPLETED Source: [place] 12:00 AM [facility] REPOSITORY Telephone (HEMAWS) ANNA BARRERA ([id number]) 1940 F Date Time Provider Department 09/08/17 [place] During your visit today, we recorded the following information about you: Annamarie Lim Edie, SHANNON, PRESCHOOL ASSISTANT TEACHER 09/08/2017 8:21 AM Signed Pt. Contacted office, states she ANDquot;feels lousyANDquot;. Last meal was supper last night, felt nauseated after eating. Denies vomiting, afebrile. Afraid to eat or drink this morning, because she doesn't want to feel nauseated again. Has nothing at home for nausea . Has taken sips of water. No problems with that yet. Pt. Unable to explain , sounds anxious. Pt. left 2 messages on office voicemail this morning before 8 am. Questioned her as to wether she thinks she is just feeling anxious, she said she is feeling anxious because she is at home By herself, hasn't felt this way in years. She is unable to get her home health nurse to see her today. Pt. Wondering if it is her recent Faslodex injection that is making her feel this way, Pt. Unable to pin point why she ANDquot;feels lousyANDquot;, she just does, pt. All over the place with conversation , just adamant something needs to be done. SHANNON Ricardo DO 09/08/2017 8:29 AM Signed It's not the Faslodex. Ask her when she completed the dexamethasone taper and stopped it. Also, I note she's on Synthroid and would like to have thyroid labs checked. Perhaps dose is too high causing agitation/anxiety. DO Ky Lopez DO 09/08/2017 8:42 AM Signed Please call in Rx for Ativan. Let her know okay to increase dose to 0.5 mg every 6-8 hours as needed for anxiety. DO Annamarie Lopez LPN, LPN 09/08/2017 9:03 AM Signed Spoke with pt. Informed , she can take a whole tablet of ativan , and come in and get labs done. Informed pt. We Will not have results until next week. Pt. Voiced understanding. SHANNON Ricardo LPN 09/08/2017 12:39 PM Signed Patient called again stating that she took Ativan as directed. She drank some protein milk and vomited an hour later. Patient stating she wants to go to [facility] ER and be examined. Please advise. Cele Burkett DO 09/08/2017 12:40 PM Signed I'm okay with that. DO Cele Lopez LPN 09/08/2017 12:44 PM Signed Patient advised and is going to [facility] ER. 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) [C78.01] Brain metastases (HCC) [C79.31] Anxiety about health [F41.8] Order(s):TSH BLD [SQTSH] Order #: [id number] FUTURE T4 FREE/FREE THYROX [SQFT4] Order #: [id number] FUTURE LORazepam (ATIVAN) 0.5 mg tabTake 1 tablet by mouth three times daily as needed for up to 30 days.Disp: 45 tabletRfl: 0 Prescriptions as of 09/08/2017 Sig: LORAZEPAM 0.5 MG TABLET Take 1 tablet by mouth three * ANASTROZOLE 1 MG TABLET Take 1 tablet by mouth once d* DEXAMETHASONE 4 MG TABLET 4 mg tab tid x 4 days;4 mg ta* DEXAMETHASONE 6 MG TABLET Take 6MG BID x 5 days, then 6* FAMOTIDINE 20 MG TABLET Take 1 tablet by mouth twice * LEVOTHYROXINE 125 MCG TABLET 125 mcg once daily. ACETAMINOPHEN 325 MG TABLET Take 650 mg by mouth every 6 * METOPROLOL TARTRATE 50 MG TAB* 50 mg twice daily. Problem List As Of Date 09/08/2017 Noted Resolved Breast CA (HCC) [C50.919] INVALID FOR*03/21/2017 More... Malignant neoplasm of overlapping sites of left*INVALID FOR* 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 (HC*INVALID FOR* Brain metastases (HCC) [C79.31] INVALID FOR* Prescriptions ordered this encounter Disp Refills Start End LORAZEPAM 0.5 MG TABLET 45 t* 0 09/08/2017 10/08/2017 Class: Call Rx Route: ORAL Sig: Take 1 tablet by mouth three times daily as needed for up to 30 days. Medications Discontinued During This Encounter LORazepam (ATIVAN) 0.5 mg tab 01/14/2017 09/08/2017 Class: Historical Med Route: ORAL Sig: Take 0.25 mg by mouth three times daily as needed. Disc: Reason for discontinue is not on file. Encounter Status:Closed by ANNAMARIE IRIZARRY on 09/08/17 PROGRESS Observed: 09/04/2017 Status: COMPLETED Source: [place] 12:00 PM [facility] REPOSITORY HNO ID: [id number] Author: Meg Weber (Sw) Service: (none) Author Type: Chart Picker Type: Progress Notes Filed: 09/04/2017 12:02 PM Note Text: Social Work Problem Referral Note INFORMATION/REFERRAL : Anna Barrera 77 year old female was referred by [facility] Social Work for the following reason(s): community services/resources PERSONS INTERVIEWED: patient INTERVENTION: Information AND Referral Service Co-ordination Affect/Mood: The patient is noted as appropriate IDENTIFIED PROBLEMS/NEEDS: Referral Intervention/Referral to be provided:Arrangements made for continuity of care IMPRESSION/PLAN: RICARDO met with patient to discuss patient's readiness to be linked with the [address] [place] [address] program. Patient reports she has been more tearful lately and needs another source of support outside of her sisters. RICARDO provided supportive active listening and called [address] [place] [address] to refer patient for a mentor. F/U APPOINTMENT: CALE Campbell CNSW Observed: 09/04/2017 Status: COMPLETED Source: [place] 12:00 AM [facility] Social Work (JAYA) ANNA BARRERA ([id number]) 1940 F Date Time Provider Department 09/04/17 MEG WEBER (SW) During your visit today, we recorded the following information about you: CALE Rose 09/04/2017 12:02 PM Signed Social Work Problem Referral Note INFORMATION/REFERRAL : Anna Barrera 77 year old female was referred by [facility] Social Work for the following reason(s): community services/resources PERSONS INTERVIEWED: patient INTERVENTION: Information ANDamp; Referral Service Co-ordination Affect/Mood: The patient is noted as appropriate IDENTIFIED PROBLEMS/NEEDS: Referral Intervention/Referral to be provided:Arrangements made for continuity of care IMPRESSION/PLAN: SW met with patient to discuss patient's readiness to be linked with the [address] [place] [address] program. Patient reports she has been more tearful lately and needs another source of support outside of her sisters. SW provided supportive active listening and called [address] [place] [address] to refer patient for a mentor. F/U APPOINTMENT: CALE Campbell Allergies As of Date: 09/04/2017 Noted Allergy Reaction ALCOHOL, UNSPECIFIED 01/31/2017 5 - Intolerance Comments: Recovering alcoholic TETRACYCLINE 01/31/2017 14 - Other: See Comments Comments: Thrush in mouth Date Reviewed: 08/25/2017 Reviewed by: Ky Burkett - Fully Assessed Reason for Visit: Social Work Services [507] Cmt: [address] [place] [address] Prescriptions as of 09/04/2017 Sig: ANASTROZOLE 1 MG TABLET Take 1 tablet by mouth once d* DEXAMETHASONE 4 MG TABLET 4 mg tab tid x 4 days;4 mg ta* DEXAMETHASONE 6 MG TABLET Take 6MG BID x 5 days, then 6* FAMOTIDINE 20 MG TABLET Take 1 tablet by mouth twice * LEVOTHYROXINE 125 MCG TABLET 125 mcg once daily. ACETAMINOPHEN 325 MG TABLET Take 650 mg by mouth every 6 * METOPROLOL TARTRATE 50 MG TAB* 50 mg twice daily. LORAZEPAM 0.5 MG TABLET Take 0.25 mg by mouth three t* Problem List As Of Date 09/04/2017 Noted Resolved Breast CA (HCC) [C50.919] INVALID FOR*03/21/2017 More... Malignant neoplasm of overlapping sites of left*INVALID FOR* 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 (HC*INVALID FOR* Brain metastases (HCC) [C79.31] INVALID FOR* Encounter Status:Closed by MEG WEBER on 09/04/17 PROGRESS Observed: 08/25/2017 Status: COMPLETED Source: [place] 2:44 PM [facility] REPOSITORY HNO ID: [id number] Author: Ky Burkett Service: (none) Author Type: Physician Type: Progress Notes Filed: 08/25/2017 3:28 PM Note Text: Diagnosis: 1) Breast cancer. HPI: Patient is a 77-year-old female whom I initially saw in the hospital for consultation. She was admitted on 01/10/2017 for uncontrolled bleeding from a large breast tumor. A CT of the chest was performed in the emergency room. That study demonstrated a 6.2 x 7.3 x 7.7 cm inhomogeneously vascular mass involving the majority of the left breast along the medial aspect. There was diffuse thickening of the overlying skin observed. There was also evidence of increased markings in the lateral portion of the breast. There were small left axillary lymph nodes noted. Dimensions were not rendered. Significantly, multiple nodules were observed in the right lower lobe. The largest measured 2.6 x 1.5 cm. Increased markings were observed at the lung bases just above the bibasilar atelectasis and/or scarring seen. The mediastinum was observed to be normal as were the hilar regions. Multilevel degenerative changes were observed and thoracic spine. The bleeding was controlled with Gelfoam packing. Patient was seen by general surgery. The patient underwent an ultrasound guided biopsy of the left breast mass on 01/11/2017. 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 COMMENT Immunohistochemistry ([id number]) supports the above diagnosis. 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 Case is reviewed in consultation with Dr. Ibarra of [facility] (complete consultative report viewable in patient?s EMR). ER/MD/Tcq6smh studies are being performed on sections of tumor and the results from this study will be reported separately ([id number]). RESULTS: ANTIBODY / CLONE RESULT E-Cad (ECH-6) positive, rare cells CK8 (83kqbpC76) positive, focal P63 (7JUL/4A4) negative Calponin-1 (SZ281P) negative CD56 (123C3.D5) negative Chromo (LK2H10) negative Synapto (polyclonal) negative CK5-6 (D5 AND 1684) positive Ki-67 (30-9) positive, high P53 (DO-7) positive, high Vimentin (V9) positive TTF-1 (8G7G3/1) negative AE1-3 (AE1/AE3/PCK26) positive CD45 (RP2/18) negative MART-1 (A-103) negative CK7 (OV-TL12/30) positive CK20 (KS20.8) noncontributory MORPHOMETRIC ANALYSIS ER (clone 6F11) 17%, weak MD (clone 16/1E2) 0 Her-2Neu (clone CB11) 0-1+ The prognostic test for HER2 is performed on formalin-fixed paraffin embedded tissue. A 3+ (positive) staining pattern is defined as intense, homogeneous, complete, circumferential membranous staining in >10% of contiguous tumor cells. A similar weak (2+) staining pattern is interpreted as equivocal. JENNA follow-up testing is recommended for all equivocal cases. Positivity/negativity for ER/MD is reported if > or < 1% of the tumor cells are immuno- reactive, respectively. The ASCO/CAP criteria is used for scoring. Reference: Journal of Clinical Oncology, 2013; 31:3966-8191 AND 2009; 16:1216-8130. Duration of fixation: 6 Hrs; Sample Adequate: Yes. These assays have not been validated on decalcified tissues. Results should be interpreted with caution given the likelihood of false negativity on decalcified specimens. These tests were developed and their performance characteristics determined by [facility]. They may not have been cleared or approved by the U.S. Food and Drug Administration. The FDA has determined that such clearance or approval is not necessary. 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 Positive for estrogen receptors (favorable prognostic indicator). Negative for progesterone receptors (unfavorable prognostic indicator). Negative for overexpression of COC0kcw. Patient underwent an echocardiogram on 01/11/2017 as well. That study demonstrated normal left ventricular size and systolic function. The estimated ejection fraction was 65%. No regional wall motion abnormalities were noted. There was mild mitral valve prolapse. Trivial mitral valve insufficiency was noted. There was mild tricuspid valve insufficiency with mild focal aortic valve thickening. Right ventricular systolic pressure estimated to be 29 mmHg. The patient declined any further radiographic workup in the hospital until she had definitive proof of breast cancer via the biopsy. Previous therapy: 1) Neoadjuvant ddAC followed by Taxol x4 cycles. 2) Left modified radical mastectomy with axillary lymph node dissection 2017. 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 Changes consistent with treatment effect (presurgical neoadjuvant) therapy both in breast and in the lymph nodes. Multiple skin lesions, consistent with seborrheic keratosis. Eleven out of 11 lymph nodes negative for metastatic carcinoma. INVASIVE BREAST CANCER SUMMARY: Specimen - total breast (including nipple and skin). Procedure - total mastectomy (including nipple and skin). Lymph node sampling - axillary dissection Specimen integrity - single, intact specimen Specimen laterality - left Tumor site - lower inner quadrant Tumor size - 0.5 x 0.3 cm Tumor focality - single focus of invasive carcinoma Macroscopic and Microscopic extent of tumor: Skin - invasive carcinoma does not invade into the dermis or epidermis Nipple - ductal carcinoma does not involve the nipple epidermis. Skeletal muscle - no skeletal muscle present. Ductal carcinoma in situ (DCIS) - no ductal carcinoma in situ is present. Lobular carcinoma in situ (LCIS) - not identified Histologic type of invasive carcinoma - poorly differentiated carcinoma with basaloid features. Histologic Grade (Schneider grade): Glandular/tubular differentiation - score 3 Nuclear pleomorphism - score 3 Mitotic count - score 1 Overall grade - 2 (score of 7) Margins: Margins uninvolved by invasive carcinoma. The tumor is 2 cm away from the deep margin. Treatment effect - response to presurgical (neoadjuvant therapy) - In the breast - definite response to presurgical therapy in the invasive carcinoma. In the lymph node - definite response to presurgical therapy in the metastatic carcinoma. See comment. Lymph-Vascular invasion - not identified Dermal lymph-vascular invasion - not identified Lymph nodes: Number of sentinel lymph nodes examined - 0 Total number of lymph nodes examined (sentinel and nonsentinel) - 11 Number of lymph nodes with macrometastases, micrometastases and isolated tumor cells - 0 Distance metastasis - not applicable Additional pathologic findings: - Extensive area of necrosis, histiocytic reaction and hemorrhage (consistent with presurgical neoadjuvant chemotherapy related changes) - Skin lesions, seborrheic keratosis. - Fibrocystic changes with intraductal hyperplasia without atypia. - Microscopic hyalinized fibroadenoma (0.6 x 0.4 cm) - one lymph node with hemangioma (0.1 cm in greatest dimension). Ancillary studies - previously performed on section of tumor ([id number] / [id number]). ER - positive (38% weak to moderate) MD - negative (0%) Her2 nicko - negative (0) Her2 by dual JENNA - not performed Microcalcifications - not identified Clinical history - Please make reference to previous specimen ([id number]) left breast, core biopsy with diagnosis of poorly differentiated ductal carcinoma, basaloid type. PATHOLOGIC STAGE: pT1a(y) pN0 Mx Interim history: Since last seen, patient underwent urgent MRI the disclosed 1 left cerebral metastatic lesion. She was started on steroids and referred to the tumor group at [facility]. She underwent Gamma knife. She's had near complete resolution of all her symptoms but still has a little heavy duty custodian strength weakness of the right hand. Otherwise she is back to driving and she is caring for herself at home again. She offers no other complaints. Specifically she has no respiratory complaints including cough, sputum production or wheezing. No chest pain pressure or tightness. She is not short of breath at rest. She is not short of breath with walking. PMH, medications and allergies personally reviewed by me today. Any changes documented in appropriate section. ROS: Constitutional: No episode of fever, night sweats or shaking chills. Neuro: Denies AYALA, vertigo, dizziness and imbalance. HEENT: No recent change in voice or hearing. Resp: See above. CVS: Denies PND and orthopnea. GI: Denies dysgeusia. Denies symptoms of stomatitis. Denies dysphagia and odynophagia. Denies reflux, n/v, change in bowel habits and abdominal pain. : Denies dysuria or gross hematuria. No symptoms of bladder outlet obstruction. Endo: Denies hot flashes. Denies polyuria and polydipsia. Denies heat and cold intolerance. Musculoskeletal: Denies bone, joint and back pain.. Derm: Denies rash. Denies jaundice and diffuse pruritis. Heme: Denies unexplained bruising. Psych: Normal mood. PHYSICAL EXAM: Vitals: Blood pressure 127/60, pulse 77, temperature 37 ?C (98.6 ?F), temperature source Temporal Artery, weight 65.1 kg (143 lb 8 oz), SpO2 97 %. Well-appearing and in no acute distress. EYES: Sclerae are anicteric bilaterally. NECK: Supple. LYMPHATIC: There is no palpable cervical, supraclavicular or inguinal adenopathy. RESPIRATORY: Inspiratory breath sounds are of normal intensity in all murcia. CARDIOVASCULAR: Rhythm is regular. Normal intensity S1/S2. There is no gallop or murmur. BREAST: Left mastectomy site is healed. There is no chest wall mass or nodule. No axillary adenopathy. ABDOMEN: The abdomen is nondistended. No organomegaly. No tenderness. Extremities: Very mild swelling right ankle. SKIN: No jaundice or rash. No petechiae. NEUROLOGIC: milieu manager II-XII are grossly intact. Diminished hand heavy duty custodian strength on the right side. MUSCULOSKELETAL: No muscle wasting. ASSESSMENT/PLAN: (C50.812, Z17.0) Malignant neoplasm of overlapping sites of left breast in female, estrogen receptor positive (HCC) (primary encounter diagnosis) Assessment: -KPS is 90%. -Patient presented with a neglected breast cancer that was locally advanced and had uncontrollable bleeding. In the interest of starting her treatment urgently, biopsy of the lung masses was deferred. -Reviewed pathology with her. 0.5 cm viable tumor. -Most recent CT scan revealed a stable 3 mm right lower lung metastasis. -Has received gamma knife therapy for brain metastasis. She's completing steroid taper with marked improvement in her neurologic symptoms. -Reviewed plan again today with the patient and her sister regarding the approach to treatment using hormonal therapy at this point. I discussed the rationale, logistics, potential risks, benefits and alternatives, as well as the personnel involved in the administration of Faslodex. I answered her questions in detail and she verbalized understanding and agreed with the recommended therapy. -She will also receive concurrent aromatase inhibitor therapy. Plan: -Rx for anastrozole. -Begin Faslodex once approved by insurance. -She will continue dexamethasone taper. -Follow up MRI scheduled at [facility]. -Plan bone density exam in 2 years. -Continue calcium and vitamin D supplementation. -Right breast mammogram due this fall. Ky Burkett DO CNOVSP Observed: 08/25/2017 Status: COMPLETED Source: [place] 2:30 PM [facility] REPOSITORY Visit (SP) Office (JAYA) ANNA BARRERA ([id number]) 1940 F Date Time Provider Department 08/25/17 2:30 PM [facility] During your visit today, we recorded the following information about you: Temperature Pulse Blood pressure Weight 98.6 degrees 77/minute 127/60 65.1 kg Ky Burkett DO 08/25/2017 3:28 PM Signed Diagnosis: 1) Breast cancer. HPI: Patient is a 77-year-old female whom I initially saw in the hospital for consultation. She was admitted on 01/10/2017 for uncontrolled bleeding from a large breast tumor. A CT of the chest was performed in the emergency room. That study demonstrated a 6.2 x 7.3 x 7.7 cm inhomogeneously vascular mass involving the majority of the left breast along the medial aspect. There was diffuse thickening of the overlying skin observed. There was also evidence of increased markings in the lateral portion of the breast. There were small left axillary lymph nodes noted. Dimensions were not rendered. Significantly, multiple nodules were observed in the right lower lobe. The largest measured 2.6 x 1.5 cm. Increased markings were observed at the lung bases just above the bibasilar atelectasis and/or scarring seen. The mediastinum was observed to be normal as were the hilar regions. Multilevel degenerative changes were observed and thoracic spine. The bleeding was controlled with Gelfoam packing. Patient was seen by general surgery. The patient underwent an ultrasound guided biopsy of the left breast mass on 01/11/2017. 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 COMMENT Immunohistochemistry ([id number]) supports the above diagnosis. 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 Case is reviewed in consultation with Dr. Ibarra of [facility] (complete consultative report viewable in patient?s EMR). ER/MD/Dgn0tya studies are being performed on sections of tumor and the results from this study will be reported separately ([id number]). RESULTS: ANTIBODY / CLONE RESULT E-Cad (ECH-6) positive, rare cells CK8 ([id number]) positive, focal P63 (7JUL/4A4) negative Calponin-1 (LS786T) negative CD56 (123C3.D5) negative Chromo (LK2H10) negative Synapto (polyclonal) negative CK5-6 (D5 ANDamp; 1684) positive Ki-67 (30-9) positive, high P53 (DO-7) positive, high Vimentin (V9) positive TTF-1 (8G7G3/1) negative AE1-3 (AE1/AE3/PCK26) positive CD45 (RP2/18) negative MART-1 (A-103) negative CK7 (OV-TL12/30) positive CK20 (KS20.8) noncontributory MORPHOMETRIC ANALYSIS ER (clone 6F11) 17%, weak MD (clone 16/1E2) 0 Her-2Neu (clone CB11) 0-1+ The prognostic test for HER2 is performed on formalin-fixed paraffin embedded tissue. A 3+ (positive) staining pattern is defined as intense, homogeneous, complete, circumferential membranous staining in ANDgt;10% of contiguous tumor cells. A similar weak (2+) staining pattern is interpreted as equivocal. JENNA follow-up testing is recommended for all equivocal cases. Positivity/negativity for ER/MD is reported if ANDgt; or ANDlt; 1% of the tumor cells are immuno- reactive, respectively. The ASCO/CAP criteria is used for scoring. Reference: Journal of Clinical Oncology, 2013; 31:5405-1289 ANDamp; 2010; 16:7385-5828. Duration of fixation: 6 Hrs; Sample Adequate: Yes. These assays have not been validated on decalcified tissues. Results should be interpreted with caution given the likelihood of false negativity on decalcified specimens. These tests were developed and their performance characteristics determined by [facility]. They may not have been cleared or approved by the U.S. Food and Drug Administration. The FDA has determined that such clearance or approval is not necessary. 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 Positive for estrogen receptors (favorable prognostic indicator). Negative for progesterone receptors (unfavorable prognostic indicator). Negative for overexpression of NYM3fev. Patient underwent an echocardiogram on 01/11/2017 as well. That study demonstrated normal left ventricular size and systolic function. The estimated ejection fraction was 65%. No regional wall motion abnormalities were noted. There was mild mitral valve prolapse. Trivial mitral valve insufficiency was noted. There was mild tricuspid valve insufficiency with mild focal aortic valve thickening. Right ventricular systolic pressure estimated to be 29 mmHg. The patient declined any further radiographic workup in the hospital until she had definitive proof of breast cancer via the biopsy. Previous therapy: 1) Neoadjuvant ddAC followed by Taxol x4 cycles. 2) Left modified radical mastectomy with axillary lymph node dissection 2017. 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 Changes consistent with treatment effect (presurgical neoadjuvant) therapy both in breast and in the lymph nodes. Multiple skin lesions, consistent with seborrheic keratosis. Eleven out of 11 lymph nodes negative for metastatic carcinoma. INVASIVE BREAST CANCER SUMMARY: Specimen - total breast (including nipple and skin). Procedure - total mastectomy (including nipple and skin). Lymph node sampling - axillary dissection Specimen integrity - single, intact specimen Specimen laterality - left Tumor site - lower inner quadrant Tumor size - 0.5 x 0.3 cm Tumor focality - single focus of invasive carcinoma Macroscopic and Microscopic extent of tumor: Skin - invasive carcinoma does not invade into the dermis or epidermis Nipple - ductal carcinoma does not involve the nipple epidermis. Skeletal muscle - no skeletal muscle present. Ductal carcinoma in situ (DCIS) - no ductal carcinoma in situ is present. Lobular carcinoma in situ (LCIS) - not identified Histologic type of invasive carcinoma - poorly differentiated carcinoma with basaloid features. Histologic Grade (Schneider grade): Glandular/tubular differentiation - score 3 Nuclear pleomorphism - score 3 Mitotic count - score 1 Overall grade - 2 (score of 7) Margins: Margins uninvolved by invasive carcinoma. The tumor is 2 cm away from the deep margin. Treatment effect - response to presurgical (neoadjuvant therapy) - In the breast - definite response to presurgical therapy in the invasive carcinoma. In the lymph node - definite response to presurgical therapy in the metastatic carcinoma. See comment. Lymph-Vascular invasion - not identified Dermal lymph-vascular invasion - not identified Lymph nodes: Number of sentinel lymph nodes examined - 0 Total number of lymph nodes examined (sentinel and nonsentinel) - 11 Number of lymph nodes with macrometastases, micrometastases and isolated tumor cells - 0 Distance metastasis - not applicable Additional pathologic findings: - Extensive area of necrosis, histiocytic reaction and hemorrhage (consistent with presurgical neoadjuvant chemotherapy related changes) - Skin lesions, seborrheic keratosis. - Fibrocystic changes with intraductal hyperplasia without atypia. - Microscopic hyalinized fibroadenoma (0.6 x 0.4 cm) - one lymph node with hemangioma (0.1 cm in greatest dimension). Ancillary studies - previously performed on section of tumor ([id number] / [id number]). ER - positive (38% weak to moderate) MD - negative (0%) Her2 nicko - negative (0) Her2 by dual JENNA - not performed Microcalcifications - not identified Clinical history - Please make reference to previous specimen ([id number]) left breast, core biopsy with diagnosis of poorly differentiated ductal carcinoma, basaloid type. PATHOLOGIC STAGE: pT1a(y) pN0 Mx Interim history: Since last seen, patient underwent urgent MRI the disclosed 1 left cerebral metastatic lesion. She was started on steroids and referred to the tumor group at [facility]. She underwent Gamma knife. She's had near complete resolution of all her symptoms but still has a little heavy duty custodian strength weakness of the right hand. Otherwise she is back to driving and she is caring for herself at home again. She offers no other complaints. Specifically she has no respiratory complaints including cough, sputum production or wheezing. No chest pain pressure or tightness. She is not short of breath at rest. She is not short of breath with walking. PMH, medications and allergies personally reviewed by me today. Any changes documented in appropriate section. ROS: Constitutional: No episode of fever, night sweats or shaking chills. Neuro: Denies AYALA, vertigo, dizziness and imbalance. HEENT: No recent change in voice or hearing. Resp: See above. CVS: Denies PND and orthopnea. GI: Denies dysgeusia. Denies symptoms of stomatitis. Denies dysphagia and odynophagia. Denies reflux, n/v, change in bowel habits and abdominal pain. : Denies dysuria or gross hematuria. No symptoms of bladder outlet obstruction. Endo: Denies hot flashes. Denies polyuria and polydipsia. Denies heat and cold intolerance. Musculoskeletal: Denies bone, joint and back pain.. Derm: Denies rash. Denies jaundice and diffuse pruritis. Heme: Denies unexplained bruising. Psych: Normal mood. PHYSICAL EXAM: Vitals: Blood pressure 127/60, pulse 77, temperature 37 ?C (98.6 ?F), temperature source Temporal Artery, weight 65.1 kg (143 lb 8 oz), SpO2 97 %. Well-appearing and in no acute distress. EYES: Sclerae are anicteric bilaterally. NECK: Supple. LYMPHATIC: There is no palpable cervical, supraclavicular or inguinal adenopathy. RESPIRATORY: Inspiratory breath sounds are of normal intensity in all murcia. CARDIOVASCULAR: Rhythm is regular. Normal intensity S1/S2. There is no gallop or murmur. BREAST: Left mastectomy site is healed. There is no chest wall mass or nodule. No axillary adenopathy. ABDOMEN: The abdomen is nondistended. No organomegaly. No tenderness. Extremities: Very mild swelling right ankle. SKIN: No jaundice or rash. No petechiae. NEUROLOGIC: milieu manager II-XII are grossly intact. Diminished hand heavy duty custodian strength on the right side. MUSCULOSKELETAL: No muscle wasting. ASSESSMENT/PLAN: (C50.812, Z17.0) Malignant neoplasm of overlapping sites of left breast in female, estrogen receptor positive (HCC) (primary encounter diagnosis) Assessment: -KPS is 90%. -Patient presented with a neglected breast cancer that was locally advanced and had uncontrollable bleeding. In the interest of starting her treatment urgently, biopsy of the lung masses was deferred. -Reviewed pathology with her. 0.5 cm viable tumor. -Most recent CT scan revealed a stable 3 mm right lower lung metastasis. -Has received gamma knife therapy for brain metastasis. She's completing steroid taper with marked improvement in her neurologic symptoms. -Reviewed plan again today with the patient and her sister regarding the approach to treatment using hormonal therapy at this point. I discussed the rationale, logistics, potential risks, benefits and alternatives, as well as the personnel involved in the administration of Faslodex. I answered her questions in detail and she verbalized understanding and agreed with the recommended therapy. -She will also receive concurrent aromatase inhibitor therapy. Plan: -Rx for anastrozole. -Begin Faslodex once approved by insurance. -She will continue dexamethasone taper. -Follow up MRI scheduled at [facility]. -Plan bone density exam in 2 years. -Continue calcium and vitamin D supplementation. -Right breast mammogram due this fall. 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 Discontinue saline lock post exam. If Pt. has a central line or IVAD, may access for administration according to line specific nursing protocol. Once exam is complete flush line and de- access according to line specific nursing protocol in the CT contrast administration guidelines link.Disp: 1 EachRfl: 0 enteric contrast (radiology procedure)For CT CHESTABD/PEL W IVCON Routine order Administer, As Directed One Time Only, via Oral, Rectal, both Oral and Rectal, Enteric Tube, Stoma or Indwelling Catheter, Enteric Contrast as designated per enteric contrast guidelinesDisp: 1 EachRfl: 0 NM BONE WHOLE BODY [[id number]] Order #: [id number] FUTURE Follow-up and Disposition History Recorded Prescriptions as of 08/25/2017 Sig: DEXAMETHASONE 4 MG TABLET 4 mg tab tid x 4 days;4 mg ta* FAMOTIDINE 20 MG TABLET Take 1 tablet by mouth twice * LEVOTHYROXINE 125 MCG TABLET 125 mcg once daily. ACETAMINOPHEN 325 MG TABLET Take 650 mg by mouth every 6 * METOPROLOL TARTRATE 50 MG TAB* 50 mg twice daily. LORAZEPAM 0.5 MG TABLET Take 0.25 mg by mouth three t* ANASTROZOLE 1 MG TABLET Take 1 tablet by mouth once d* IV CONTRAST (RADIOLOGY PROCED* CT Chest ABD/PEL-Inject, intr* ENTERIC CONTRAST (RADIOLOGY P* For CT CHESTABD/PEL W IVCON R* DEXAMETHASONE 6 MG TABLET Take 6MG BID x 5 days, then 6* Medication notes this encounter DEXAMETHASONE 6 MG TABLET >> Latoya Simeon MA 08/25/2017 2:17 PM >> LATOYA SIMEON MA Aug 25, 2017 2:17 PM No longer taking this strength. Problem List As Of Date 08/25/2017 Noted Resolved Breast CA (HCC) [C50.919] INVALID FOR*03/21/2017 More... Malignant neoplasm of overlapping sites of left*INVALID FOR* 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 (HC*INVALID FOR* Brain metastases (HCC) [C79.31] INVALID FOR* Encounter Status:Closed by KY BURKETT DO on 08/25/17 SURGERY VISIT REPORT Observed: 08/23/2017 Status: F Source: [place] 2:01 PM [facility] REPOSITORY [facility] [address] [place] [id number] OFFICE VISIT Date of Service: 08/23/17 MR#: [id number] Acct: [id number] Name: ANNA BARRERA Rep #: [id number] : 1940 Provider: Stacey Pizano PA-C Age/Sex: 77/F Location: [facility] Status: Signed Intake Intake Visit Reasons: F/U MASTECTOMY/CEBUL Steward/Stewardess Wine Required: No Is patient in pain?: No Allergies shellfish derived Allergy (Verified 08/23/17 10:46) Hives tetracycline [Tetracycline] Allergy (Verified 08/23/17 10:46) Other alcohol Adverse Reaction (Verified 08/23/17 10:46) Unknown Medications Lorazepam [Ativan] 0.25 mg PO TID PRN PRN 07/14/13 [History Confirmed 08/23/17] Metoprolol Tartrate [Lopressor (beta mike)] 50 mg PO BIDCM 07/14/13 [History Confirmed 08/23/17] Diltiazem HCl [Diltiazem ER] 180 mg PO DAILY 01/10/17 [History Confirmed 08/23/17] Acetaminophen [Tylenol Tablet] 650 mg PO Q6H PRN PRN #30 tab 01/12/17 [Rx Confirmed 08/23/17] Levothyroxine [Synthroid] 125 mcg PO DAILY 06/15/17 [History [...] of modified radical mastectomy of left breast (Acute) S/P breast [...] following for metastatic left breast cancer. Patient returns for a follow-up visit. She [...] was treated with Gamma Knife treatment at [facility] [place]. She will have a follow up MRI [...] PA-C Cosigner Signature: Date (if applicable) CC: PROGRESS Observed: 08/14/2017 Status: COMPLETED Source: [place] 3:23 PM [facility] REPOSITORY HNO ID: [id number] Author: Navdeep Garcia Service: (none) Author Type: Physician Type: Progress Notes Filed: 08/14/2017 3:24 PM Note Text: [facility] [address] [place] [address] [place] OPERATIVE REPORT NAME: Anna Barrera CLINIC NO.: [id number] TREATMENT START DATE AND TIME: 2017-08-14, 08:50 TREATMENT END DATE AND TIME: 2017-08-14, 11:10 PREOPERATIVE DIAGNOSIS: Metastasis, breast POSTOPERATIVE DIAGNOSIS: Same OPERATION: Stereotactic frame application and gamma knife radiosurgery. ANESTHESIA: Locally injected 1% Lidocaine with intravenous anxiolytic Versed. SURGEON: Navdeep Garcia MD - Frame placement and planning, immediately available for all other aspects of case. RADIATION ONCOLOGIST: Corry Renteria M.D. ASSISTANTS: NONE SPECIMEN: None EBL: 0 ccs OPERATIVE INDICATIONS: The full clinical history and indications for treatment were discussed in the initial neurosurgery visit note. The indications, risks, benefits, and alternatives were discussed with the patient who asked us to proceed. The patient is aware that this may be one of several staged procedures in the management of this disorder. OPERATIVE FINDINGS: DESCRIPTION OF PROCEDURE: The patient was admitted to the Gamma Knife Center where intravenous access was obtained. The [place] stereotactic frame was placed with the use of intravenous sedation and local anesthetic. The frame was placed without any difficulty and appropriate stereotactic measurements were made. The patient then underwent stereotactic imaging. The scans were loaded in the planning computer and Le[place]ell gamma plan was used to perform stereotactic radiosurgery dose planning. The lesion was treated as follows: Target 1 (L frontal) Location: Left Frontal Prescription: 24 Gy to the 55% local isodose line The plan uses 3 shots covering 100% of the target. Target Volume: 1.65 cc Max linear size: 1.9 cm Conformality Index (PIV/TV) = 1.333 Complexity: Simple Gradient Index: 2.97 Number of Fractions: 1 After the usual manufacturing quality technician procedures were performed, stereotactic radiosurgery was delivered with use of the Gamma Knife. Following the completion of the last shot, the stereotactic frame was removed and the pin sites were dressed. The Gamma Knife checklist and time outs were performed during this procedure. Navdeep Gracia MD CT BRAIN STEREOLOCAL WO Observed: 08/14/2017 Status: F Source: [place] IVCON 8:38 AM [facility] REPOSITORY * * *Final Report* * * DATE OF EXAM: Aug 14 2017 8:38AM [facility] 0503 - CT BRAIN STEREOLOCAL WO IVCON / PROCEDURE REASON: multiple diagnoses * * * * Physician Interpretation * * * * CT BRAIN STEREO LOCAL WO IVCON HISTORY: Secondary malignant neoplasm of brain, preprocedure planning study COMPARISON: MRI 08/14/2017 TECHNIQUE: Routine CT of the brain without IV contrast. Dose-Length Product (DLP): 1172 mGy*cm. CT Dose Reduction Employed: No dose reduction techniques were required RESULT: CT BRAIN: Examination was performed with stereotactic head lineman device in place. Hyperdense mass is seen surrounded by vasogenic edema at the dorsal left frontal subcortical white matter at the convexity. This corresponds with findings on earlier MRI with mild localized effacement of sulci. No additional lesions appreciated on this examination. IMPRESSION: Successful preprocedure planning study. Kitchen Helper: BUCKY Transcribe Date/Time: Aug 14 2017 8:45A Dictated by : LUCA QUIJANO MD This examination was interpreted and the report reviewed and electronically signed by: LUCA QUIJANO MD on Aug 14 2017 8:50AM EST [id number] PROGRESS Observed: 08/14/2017 Status: COMPLETED Source: [place] 8:32 AM [facility] REPOSITORY HNO ID: [id number] Author: Genevieve Isaac (Ct) MAY Schuler Service: Radiology Author Type: Clinical Darklight Inspector Type: Progress Notes Filed: 08/14/2017 8:39 AM Note Text: Radiology Service Progress Note PATIENT NAME: Anna Barrera DATE OF SERVICE: August 14, 2017 TIME: 8:32 AM PATIENT IDENTITY VERIFICATION COMPLETED USING TWO (2) METHODS: ID Band and Date of . PATIENT GENDER DATA: Female. status: : No status: NO. 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 Preoperative examination for Gamma knife radiosurgery. Technique: High-resolution gadolinium enhanced axial gradient echo volume acquisition was performed for stereotactic localization. MQ: [id number] Contrast: IV administration of 12 ml of Dotarem Comparison: MRI brain outside hospital 07/31/2017 RESULT: There is an enhancing intra-axial mass within the subcortical white matter of the left middle frontal gyrus extending into the left frontal centrum semiovale measuring 1.0 x 1.4 x 1.4 cm (AP, TV, CC), image 70 with surrounding T1 hypointense vasogenic edema which extends into the left frontal centrum semiovale and subcortical white matter of the left frontal and precentral gyri. There is mild localized mass effect. Findings are not significantly changed from prior exam 07/31/2017. No other findings of an intracranial mass or pathologic parenchymal or leptomeningeal enhancement elsewhere in the brain. Remainder of the brain parenchyma is within normal limits of signal intensity characteristics and morphology. No significant volume loss for age. Ventricles are normal caliber and morphology. Hypothalamic and pituitary region are grossly normal. The visualized paranasal sinuses and mastoid air cells are clear. IMPRESSION: Solitary left frontal intracranial metastasis, which is not significantly changed from 07/31/2017. Kitchen Helper: BUCKY Transcribe Date/Time: Aug 14 2017 10:35A Dictated by : SALVATORE BONILLA MD This examination was interpreted and the report reviewed and electronically signed by: SALVATORE BONILLA MD on Aug 14 2017 10:46AM EST [id number] PROGRESS Observed: 08/14/2017 Status: COMPLETED Source: [place] 7:55 AM [facility] REPOSITORY HNO ID: [id number] Author: Ana Lord Rt Service: (none) Author Type: (none) Type: Progress Notes Filed: 08/14/2017 7:56 AM Note Text: Radiology Service Progress Note PATIENT NAME: Anna Barrera DATE OF SERVICE: August 14, 2017 TIME: 7:55 AM PATIENT IDENTITY VERIFICATION COMPLETED USING TWO (2) METHODS: Patient confirmed name verbally and Date of . PATIENT GENDER DATA: Female. status: : No status: NO. PATIENT RELEVANT IMPLANT DATA REVIEWED: Yes RADIOLOGY DEPARTMENT: MR; Exam(s) Completed: Head: Localization pre-frame gamma knife. PERIPHERAL IV DATA: Site assessment: Clean,Dry and Intact, Site disposition Left in for next appointment SIGNED BY: Ana Parikh BSRT(R)(MR) August 14, 2017 7:55 AM NURSING PROG Observed: 08/14/2017 Status: COMPLETED Source: [place] 7:15 AM [facility] REPOSITORY HNO ID: [id number] Author: [place] (Rn) JOSÉ MIGUEL Saha Service: (none) Author Type: Registered Nurse Type: Nursing Progress Note Filed: 08/14/2017 7:18 AM Note Text: Radiology Service Progress Note PATIENT NAME: Anna Barrera DATE OF SERVICE: August 14, 2017 TIME: 7:15 AM PATIENT WEIGHT: 136 LBS PATIENT IDENTITY VERIFICATION COMPLETED USING TWO (2) METHODS: Patient confirmed name verbally and ID band matches.. PATIENT GENDER DATA: Female. status: : No status: NO. CONTRAST INDUCED NEPHROPATHY RISK FACTORS: Patient age > 60 years CREATININE: Creatinine Date Value Ref Range Status 07/05/2017 0.57 (L) 0.58 - 0.96 mg/dL Final 01/31/2017 0.79 0.58 - 0.96 mg/dL Final Creatinine, Whole Blood (iSTAT) Date Value Ref Range Status 07/26/2017 0.70 0.70 - 1.40 mg/dL Final 05/29/2017 0.80 0.70 - 1.40 mg/dL Final 05/16/2017 0.60 (L) 0.70 - 1.40 mg/dL Final eGFR-All Other Races Date Value Ref Range Status 07/26/2017 >60 . Final Comment: eGFR (Estimated GFR) Units of measure: mL/min/1.73 meters squared eGFR is derived from the reexpressed MDRD Study equation using the following parameters: serum creatinine, age, gender and race. The creatinine assay has been calibrated to be traceable to IDMS. An eGFR <60 mL/min/1.73m2 for >3 months is consistent with chronic kidney disease. Refer to KDOQI guidelines for clinical interpretation. In patients with unstable renal function, e.g. those with acute kidney injury, the eGFR may not accurately reflect actual GFR. eGFR- Date Value Ref Range Status 07/26/2017 >60 Final P.O.C.T. RESULTS: N/A August 14, 2017 TREATMENT: No Hydration needed. ALLERGIES: Reviewed and unchanged CONTRAST ALLERGY: NO. IV SITE: Ambulatory: A peripheral IV was started in the Right antecubital site with a Angio cath: 22 gauge. and A Saline lock was inserted per protocol in Gamma knife, flushed with good blood return noted IV SITE APPEARANCE: Clean,Dry and Intact SIGNED BY: [place] Saha RN August 14, 2017 7:15 AM PROGRESS Observed: 08/14/2017 Status: COMPLETED Source: [place] 7:11 AM [facility] REPOSITORY O ID: [id number] Author: Ana Hebert RN Service: (none) Author Type: (none) Type: Progress Notes Filed: 08/14/2017 12:46 PM Note Text: August 14, 2017 0639 Anna Barrera arrived ambulatory with sisterAlondra Castillo here for Gamma Knife Stereotactic Radiosurgery. ID verified with patient with two identifiers, name and birthdate. ID band applied. Ana Hebert RN Anna assessed for the following: Does Anna have any pain? No. Pain 0 on scale of 0-10 Does Anna have: Unintentional weight loss or gain of greater than 10 pounds due to a change of appetite and/or intake: no Difficulty chewing and/or swallowing: no Fall risk assessment: At risk due to: weakness Difficulty performing or completing routine daily living activities: No Concerns about physical or emotional abuse: no Allergies reviewed with patient, yes. Glasses: Yes . Dentures:No Hearing Aid: No PREP: NPO after midnight. Transportation home verified: yes, with son, mother and sister name Elizabeth. HANDP done, dated: . 0705 IV site: #22 Angiocath inserted in right ACF. Ana Hebert RN 0729 Anna taken to MRI for scan returned to GK after scan completed. Anna positioned in sitting position for stereotactic frame application. PATIENT ASSESSMENT SCORE PRE-FRAME PLACEMENT ASSESSMENT: [(2)Moves 4 extremities voluntarily on command] [(1)Moves 2 extremities voluntarily on command] [(0)Moves 0 extremities voluntarily on command] Patient Score: 2 [(2)Able to breathe deeply and cough freely] [(1)Dyspnea or limited breathing] [(0)Apneic} Patient Score: 2 [(2)Fully awake] [(1)Arousable on calling] [(0)Not responding] Patient Score: 2 [(2)Able to maintain O2 saturation>90% on RA] [(1)Needs O2 to maintain sat>90%] [(0)O2 sat <90% with O2] Patient Score: 2 [(2) Able to stand upright and walk] [(1)Vertigo when erect] [(0)Dizziness when supine] [(0)Non-ambulatory] Patient Score: 2 PRE-FRAME ASSESSMENT TOTAL: 10 UNIVERSAL PROTOCOL / SAFETY CHECKLIST Procedure to be performed: Gamma Knife headframe placement. Sign in communication: Completed. 0817 Time Out.: Team Confirms the Correct Patient, Correct Procedure, Correct Site and Site Marking, Correct Position. Ana Hebert RN 5665 Versed 1 mg IV per order of Dr. De Garcia for anxiolysis, Ana Hebert RN. 0806 Head frame # 1908 and pinset # 1 used for frame placement by Dr. De Garcia. POST FRAME PLACEMENT ASSESSMENT SCORE: [(2)Moves 4 extremities voluntarily on command] [(1)Moves 2 extremities voluntarily on command] [(0)Moves 0 extremities voluntarily on command] Patient Score: 2 [(2)Able to breathe deeply and cough freely] [(1)Dyspnea or limited breathing] [(0)Apneic} Patient Score: 2 [(2)Fully awake] [(1)Arousable on calling] [(0)Not responding] Patient Score: 2 [(2)Able to maintain O2 saturation>90% on RA] [(1)Needs O2 to maintain sat>90%] [(0)O2 sat <90% with O2] Patient Score:2 [(2) Able to stand upright and walk] [(1)Vertigo when erect] [(0)Dizziness when supine] [(0)Non-ambulatory] Patient Score: 2 POST FRAME PLACEMENT ASSESSMENT SCORE: 10 Sign Out Discussion: Completed. Post frame scannin Report called to nurse [place]. [address] scan via wheelchair. 0840 CT scan completed. Anna returned to Gamma Knife center waiting with family. Nutrition offered. Anna updated regarding treatment planning. 0956 Decadron 10mg IV pre-Gamma Knife per order of Dr. De Garcia, Ana Hebert RN 1015 Gave 2 tabs tylenol 325 mg po at this time for c/o pain to right side back of head and rated 3/10 and describe as dull pain 1039 Time Out #2 completed: Team Confirms the Correct Patient, Correct Procedure, Correct Site and Site Marking. Patient assisted to treatment room. Gamma Knife SRS begun. 1054 Gamma Knife Stereotactic Radiosurgery completed. Anna assisted to exam bed. 1110 Head frame removed. 1112 Four pinsite wounds cleansed with hydrogen peroxide, antibiotic ointment applied, Band-Aids to 4 sites pin sites. Farideh campos. Ana Hebert RN Does Anna have any pain post frame removal? Yes: PAIN SCALE: 4 on a scale of 0-10 Anna is able to move within pre-procedural abilities. Able to retain oral fluids. Discharge Information: Start the day after your Gamma Knife procedure: Decadron (Dexamethasone) 1. Take 4 mg (1 tablet) three times a day for 4 days then 2. Take 4 mg (1 tablet) twice a day for 4 days then 3. Take 4 mg (1 tablet) once a day for 4 days then 5. Take 2 mg (1/2 tablet) once a day for 4 days then 6. Take 2 mg (1/2 tablet) every OTHER day for 4 days then 7. Stop the Decadron Take Pepcid (20 mg) twice a day while on Decadron. Stop Pepcid when you stop the Decadron. Written and verbal post-procedural discharge instructions given to Anna with stated understanding. Reviewed signs/symptoms of cerebral edema and course of action if symptoms occur. Reviewed pin site care of cleansing pin sites twice a day x3-4 days and application of antibiotic ointment to sites. Reviewed signs/symptoms of infection and notification of myself or Dr. De Garcia's office if signs/symptoms present. To keep pin sites clean/dry, do not wash hair/scalp for 48 hours post Gamma Knife Radiosurgery. Keep head elevated on 2 pillows x1 week to minimize pin site swelling. May use cold packs to pin sites to minimize swelling. May take Ibuprofen or Tylenol for discomfort. Discharge prescriptions eScripted to pharmacy of choice: Yes at [facility] in [place], [place]. Local and toll free telephone numbers for Gamma Knife Center/Gamma Knife nurse, hours of availability, Dr. De Garcia's clinic telephone number, and [facility] local and toll free numbers given to Anna and family/visitors. Personal belongings returned to Anna. [id number] Anna left wheelchair with sister. Ana Hebert RN CNOP Observed: 08/14/2017 Status: COMPLETED Source: [place] 12:00 AM [facility] REPOSITORY Operative Note (Enc) (NSCAMN) Progress Notes: Navdeep Garcia MD 08/14/2017 3:24 PM Signed [facility] [address] [place] [address] [place] OPERATIVE REPORT NAME: Anna Barrera [facility] NO.: [id number] TREATMENT START DATE AND TIME: 2017-08-14, 08:50 TREATMENT END DATE AND TIME: 2017-08-14, 11:10 PREOPERATIVE DIAGNOSIS: Metastasis, breast POSTOPERATIVE DIAGNOSIS: Same OPERATION: Stereotactic frame application and gamma knife radiosurgery. ANESTHESIA: Locally injected 1% Lidocaine with intravenous anxiolytic Versed. SURGEON: Navdeep Garcia MD - Frame placement and planning, immediately available for all other aspects of case. RADIATION ONCOLOGIST: Corry Renteria M.D. ASSISTANTS: NONE SPECIMEN: None EBL: 0 ccs OPERATIVE INDICATIONS: The full clinical history and indications for treatment were discussed in the initial neurosurgery visit note. The indications, risks, benefits, and alternatives were discussed with the patient who asked us to proceed. The patient is aware that this may be one of several staged procedures in the management of this disorder. OPERATIVE FINDINGS: DESCRIPTION OF PROCEDURE: The patient was admitted to the Gamma Knife Center where intravenous access was obtained. The [place] stereotactic frame was placed with the use of intravenous sedation and local anesthetic. The frame was placed without any difficulty and appropriate stereotactic measurements were made. The patient then underwent stereotactic imaging. The scans were loaded in the planning computer and [place]ell gamma plan was used to perform stereotactic radiosurgery dose planning. The lesion was treated as follows: Target 1 (L frontal) Location: Left Frontal Prescription: 24 Gy to the 55% local isodose line The plan uses 3 shots covering 100% of the target. Target Volume: 1.65 cc Max linear size: 1.9 cm Conformality Index (PIV/TV) = 1.333 Complexity: Simple Gradient Index: 2.97 Number of Fractions: 1 After the usual manufacturing quality technician procedures were performed, stereotactic radiosurgery was delivered with use of the Gamma Knife. Following the completion of the last shot, the stereotactic frame was removed and the pin sites were dressed. The Gamma Knife checklist and time outs were performed during this procedure. Navdeep Garcia MD Encounter Status:Closed by NAVDEEP GARCIA MD on 08/14/17 PROGRESS Observed: 08/14/2017 Status: COMPLETED Source: [place] 12:00 AM [facility] REPOSITORY HNO ID: [id number] Author: Corry Renteria Service: Radiation Oncology Author Type: Physician Type: Progress Notes Filed: 08/15/2017 12:33 AM Note Text: ANNA BARRERA [id number] 08/14/2017 [facility] Department of Radiation Oncology [facility] RADIATION ONCOLOGY GAMMA KNIFE TREATMENT PLANNING NOTE For reasons stated in the consult note, ANNA BARRERA is a candidate for palliative radiosurgery. Based on review and interpretation of the relevant diagnostic studies together with the exam findings, ANNA BARRERA was imaged on 08/14/2017. The imaging was fused into Gamma Plan and the target volume to be treated as well as the critical normal structure(s) were delineated. After participating in the treatment planning process with neurosurgery and medical physics, I approved the best plan to deliver my prescribed course of radiosurgery. The target tissue was planned using Gamma Plan to allow for the best isodose distribution and dosimetry/DVH. The dose to normal tissue and target tissue was confirmed upon review of the calculated dose. A completed summary of this plan dated 08/14/2017 incorporated herein by reference includes dose, isodose distribution and DVH. Electronically Signed Bereket Renteria M.D. / SUE 08/14/20179:31 PM PROGRESS Observed: 08/14/2017 Status: COMPLETED Source: [place] 12:00 [facility] REPOSITORY HNO ID: [id number] Author: Corry Renteria Service: Radiation Oncology Author Type: Physician Type: Progress Notes Filed: 08/15/2017 12:33 AM Note Text: ANNA BARRERA [id number] 08/14/2017 [facility] Department of Radiation Oncology [facility] RADIATION ONCOLOGY: COMPLETION NOTE DATE OF TREATMENT: August 14, 2017 UNIT: Gamma Knife AREA TREATED: Left Frontal DISEASE: 77 year old female with breast cancer now left frontal lesion consistent with metastasis DELIVERED DOSE: 2400.0 cGy was prescribed to the 55% isodose line, which covered 100% of the target. The plan utilized 3 shots using 8 mm and composite sectors. Target volume = 1.65 cc. Maximum dose = 4360.0 cGy. Maximum diameter = 1.9 cm. MD/PD = 1.817. PIV/TV = 1.333. Gradient Index = 2.97. Number of Fractions = 1. 1 separate treatment plan was devised. Authorized user was present during the entire treatment. ELAPSED TREATMENT TIME: 25 minutes (one session). TOLERANCE: Excellent. RESPONSE: To be evaluated. REMARKS: The patient will follow-up in 2 months with repeat MRI scan. Authorized user was present during the entire treatment. The total treatment time was within 10% of the written directive. Electronically Signed Bereket Renteria M.D./ cc: Dr. Garcia, CA51 Dr. Burkett, [facility] [place] PROGRESS Observed: 08/02/2017 Status: COMPLETED Source: [place] 2:54 PM [facility] REPOSITORY HNO ID: [id number] Author: Corry Renteria Service: (none) Author Type: Physician Type: Progress Notes Filed: 08/02/2017 10:09 PM Note Text: Radiation Oncology - New Patient/Consult Note PATIENT NAME: Anna Barrera PATIENT REQUESTING PROVIDER: Dr. Burkett DIAGNOSIS: 77 year old female with left frontal lesion consistent with metastasis HPI: The patient is a 77 year old, right handed female who presents with above diagnosis, for an opinion regarding the role of radiation therapy in the management of the patient's disease. Final recommendations will be communicated back to the requesting physician by way of the shared medical record, or letter to requesting physician via [place] mail. The patient is doing well over all. But, has some fatigue, right hand Weakness and Hx of dropping things. She has 8 Ib weight loss over the last 3 weeks, urinary incontinence, difficulty finding words occasionally. She denies any headache, recent visual changes, nausea, vomiting, fever, chills, night sweats, ALLERGIES Allergen Reactions - Alcohol, Unspecified Intolerance Recovering alcoholic - Tetracycline Other: See Comments Thrush in mouth MEDICATIONS: dexamethasone (DECADRON) 6 mg tablet Take 6MG BID x 5 days, then 6MG QD- stay on this dose until given further directions famotidine (PEPCID) 20 mg tablet Take 1 tablet by mouth twice daily. iv contrast (radiology procedure) MRI Brain Localization Inject, intravenously, once for 1 dose.No IV access, insert saline lock prior to beginning of sedation, infusion, injection of imaging exam.Discontinue saline lock post exam. If Pt. has a central line or IVAD, may access for administration according to line specific nursing protocol.Once exam is complete flush line and de-access according to line specific nursing protocol in the MR contrast administration guidelines link levothyroxine (SYNTHROID) 125 mcg tablet 125 mcg once daily. acetaminophen (TYLENOL) 325 mg tablet Take 650 mg by mouth every 6 hours as needed. metoprolol tartrate, short acting, (LOPRESSOR) 50 mg tablet 50 mg twice daily. LORazepam (ATIVAN) 0.5 mg tab Take 0.25 mg by mouth three times daily as needed. PAST MEDICAL HISTORY Diagnosis Date - Alcohol abuse, in remission - Anxiety - Atrial fibrillation (HCC) - Hypertension - Hypothyroid Prior radiation therapy, collagen vascular disease, or inflammatory bowel disease: No status: Patient states there is no possibility she is at this time. Educated on risks of during treatment. Charlson Comorbidity Scale reviewed: Yes PAST SURGICAL HISTORY Procedure Laterality Date - INGUINAL HERNIA REPAIR HX Right - TONSILLECTOMY HX Adenoidectomy FAMILY HISTORY Problem Relation Age of Onset - ovarian cyst [OTHER] Mother - small cell lung cancer [OTHER] Sister - pancreatic cancer [OTHER] Maternal Grandmother - Stroke Maternal Grandfather - Thyroid Sister SOCIAL HISTORY: Marital Status: single Children: no Occupation: not working Working: not working Tobacco Use: no Alcohol Use: no Lives in [facility] COMPLETE REVIEW OF SYSTEMS: GENERAL: SEE HPI. RESPIRATORY: Negative for cough or shortness of breath. CARDIAC: Negative for chest pain, palpitations, murmurs, or syncopal episodes. GI: Negative for nausea, vomiting, diarrhea, constipation, blood per rectum, or melena. : SEE HPI. MUSCULOSKELETAL: Negative for limitations in movement, pain, or swelling. HEMATOLOGIC: Negative for bleeding or easy bruising. SKIN: Negative for rashes or other skin changes. Neuro detailed: Headache: No Pain: no Pain interventions: None Fatigue: moderate Decreased visual acuity: Yes Diplopia: No Visual Field Changes: No Tinnitus: No Hearing loss: mild Dysphagia: No Decreased balance: none Arm/leg numbness: Yes Focal weakness: Yes Limb discoordination: No Disorientation: none Decreased concentration: none Memory changes: none Word finding difficulty: mild Dysarthria: none Seizures: No PHYSICAL EXAM: VS: There were no vitals taken for this visit. KPS: 90 Neuro function score (NFS): NFS 1 (Minor neurologic symptoms; fully active at home/work without assistance) General Appearance: Alert and oriented. No acute distress. Neck: Normal ROM. No palpable cervical or supraclavicular adenopathy. Chest: No respiratory distress. Lungs clear to auscultation bilaterally. Heart: Regular rate and rhythm. Abdomen: Soft. Nontender. Nondistended. Musculoskeletal: No edema. Normal ROM in extremities. No bone or spine tenderness. RUE Delt 4/5 Bi 4, Tri 4, FA 3, FF 4- LUE Delt 5, Bi 5, Tri 5, FA 5, FF 5 ? RLE HF 5, KE 5, DF 5, EHL 5, PF 4 LLE HF 5, KE 5, DF 5, EHL 5, PF 5 Gait is slightly wide based. Difficulty with romberg and Tandem gait. decrease in sensation in right arm to 75% to touch. Skin: No rashes noted Lymphatics: No palpable lymphadenopathy. RADIOLOGY/LABORATORY DATA: see HPI ASSESSMENT AND PLAN: 77 year old female with metastatic breast cancer with single left frontal metastasis. We discussed the natural history and expected course of her disease and reviewed options for treatment including surgical resection, WBRT, and GKRS. Given limited UNIT COORDINATOR disease, we favor GKRS. She is an appropriate candidate for gamma knife radiosurgery. We discussed the intent, logistics, risks, benefits, alternatives, acute and late toxicities associated with GKRS. All questions were answered. Informed consent was obtained. Proceed with treatment as planned. Head frame will be used. Radiosurgery will be done in a single fraction using the Gamma Knife Perfexion system, which uses up to 192 beams of radiation. A head CT and brain MRI will be performed the day of the procedure. The images will be co registered for target contouring and treatment planning. The CT scan is necessary to correct for the spatial distortion of the MRI. Both scans will be evaluated by a radiologist and the results will be discussed with the patient. Signed by: Ranulfo Bullock MS STAFF ADDENDUM I saw and evaluated the patient. I personally obtained the mora and critical portions of the history and physical exam. I reviewed the medical student's documentation and discussed the patient with the medical student. I agree with the medical student's medical decision making as documented in the medical student's note. 77 year old female with metastatic breast cancer with single left frontal metastasis. She has R sided upper extremity weakness. PMHx, PSHx, FHx, SHx, and ROS are as above. KPS = 70 AOx3. R arm weakness. I recommend GKRS. R/B/A/P/C of GKRS were discussed. She is interested in proceeding. She will be scheduled accordingly. Corry Renteria MD cc: Dr. Garcia, CA51 Dr. Burkett, [facility] [place] PROGRESS Observed: 08/02/2017 Status: COMPLETED Source: [place] 12:42 PM [facility] REPOSITORY HNO ID: [id number] Author: Navdeep Garcia Service: (none) Author Type: Physician Type: Progress Notes Filed: 08/02/2017 1:52 PM Note Text: [facility] BRAIN GK CONSULT Anna Barrera is sent by Dr. Burkett for neurosurgical evaluation and consultation for Gamma Knife Radiosurgery. Patient is accompanied by two sisters. CHIEF COMPLAINT: breast metastases to brain HISTORY OF PRESENT ILLNESS: The patient is a 77 year old, right handed female. Metastatic breast cancer (lung, brain) s/p chemotherapy with ddAC followed by Taxol x4 cycles, s/p left mastectomy and axillary node dissection on 06/22/17. Metastases to lung. Had good partial response to chemotherapy. Last 2 weeks noticed progressive weakness of right hand - unable to use utensils, difficulty picking up objects. Also noticed an occasional difficulty finding the right word. MRI brain demonstrated left frontal lesion consistent with metastasis. She was referred to us for consideration of GammaKnife radiosurgery. She was started on 6 mg of dexmethasone QID, was on it for one day only. 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 REVIEW OF SYSTEMS: Constitutional: No recent fever. About 15 lbs weight loss over 3 mo. Eyes: No history of glaucoma. Has cataracts ENMT: No recent ear infection, nasal congestion, mouth sores or sore throat. CV: No history of chest pain, palpitations or leg swelling Respiratory: No history of SOB, wheezing or recent cough. Gastrointestinal: No history of nausea, vomiting, dysphagia or abdominal pain. Had a bout of infectious diarrhea two weeks ago. Genitourinary: No history of hematuria or dysuria. Some urgency and stress incontinence Musculoskeletal: No complaint of arthritis, unstable gait or arm/leg weakness Psychiatric: No history of hallucinations, depression, or anxiety Neurological:No complaint of headache No complaint of tinnitus No complaint of decreased hearing No complaint of diplopia No complaint of arm/leg numbness No problem with limb coordination No complaint of syncope No complaints of seizures. No complaints of memory changes or disorientation. PAST MEDICAL HISTORY Diagnosis Date - Alcohol abuse, in remission - Anxiety - Atrial fibrillation (HCC) - Hypertension - Hypothyroid PAST SURGICAL HISTORY Procedure Laterality Date - INGUINAL HERNIA REPAIR HX Right - TONSILLECTOMY HX Adenoidectomy Social History Marital status: Single Spouse name: Years of education: Number of children: Social History Main Topics Smoking status: Former Smoker Packs/day: 0.50 Years: 3.00 Types: Cigarettes Quit date: 06/19/1977 Smokeless status: Never Used Alcohol use: No Comment: alcoholic- dry since 79 Drug use: No FAMILY HISTORY Problem Relation Age of Onset - ovarian cyst [OTHER] Mother - small cell lung cancer [OTHER] Sister - pancreatic cancer [OTHER] Maternal Grandmother - Stroke Maternal Grandfather - Thyroid Sister Current Outpatient Prescriptions: dexamethasone (DECADRON) 6 mg tablet Take 1 tablet by mouth every 6 hours. levothyroxine (SYNTHROID) 125 mcg tablet 125 mcg once daily. acetaminophen (TYLENOL) 325 mg tablet Take 650 mg by mouth every 6 hours as needed. metoprolol tartrate, short acting, (LOPRESSOR) 50 mg tablet 50 mg twice daily. LORazepam (ATIVAN) 0.5 mg tab Take 0.25 mg by mouth three times daily as needed. No current facility-administered medications for this visit. ALLERGIES Allergen Reactions - Alcohol, Unspecified Intolerance Recovering alcoholic - Tetracycline Other: See Comments Thrush in mouth PHYSICAL EXAMINATION: BP 139/57 (BP Site: Right Arm, BP Position: Sitting, BP Cuff Size: Regular Adult) Pulse 73 Temp 36.7 ?C (98 ?F) (Oral) Resp 16 Wt 62.1 kg (136 lb 14.4 oz) SpO2 98% BMI 24.06 kg/m2 General: Head, Face, Neck: No JVD, or carotid bruits. No thyroid enlargement, tenderness, mass. Eyes: Clear conjunctiva. Non-icteric. CV: Reg S1-S2 without abnormal sounds or murmurs. Respiratory: Clear breath sounds bilaterally Abdomen: Soft, non-tender without organomegaly. Vascular: Peripheral pulses normal. Neurological: Higher integrative functions: Oriented to person, place AND time. Memory: Good recent and remote. Attention Span and Concentration: Good. Language: Accurate naming of objects. Good comprehension. Fund of Knowledge: Good. 2nd CN: Full visual murcia. 3rd,4th,6th CN: Pupils (=), round, react to light, full extraocular movements. 5th CN: No decrease in facial sensation, 7th CN: Facial muscles symmetric and strong. 8th CN: Hears finger rub well bilaterally. 9th CN: Gag not tested 10th CN: Spontaneous palate movement, full and symmetric. 11th CN: Full strength in shoulder shrug. 12th CN: Tongue protrusion full and midline. Sensation: Decrease in sensation in right arm to 75% to touch. Musculoskeletal: Gait is slightly wide based. Difficulty with romberg and Tandem gait. Motor: RUE Delt 4/5 Bi 4, Tri 4, FA 3, FF 4- LUE Delt 5, Bi 5, Tri 5, FA 5, FF 5 RLE HF 5, KE 5, DF 5, EHL 5, PF 4 LLE HF 5, KE 5, DF 5, EHL 5, PF 5 Myotatic reflexes: 2/4 throughout and symmetrical. Babinski reflexes: Absent. Coordination: Rapid alternating movements fast and smooth all limbs. No dysdiadochokinesis. KPS score:70 Imaging : MRI Brain 07/31/2017 Left frontal lesion in the precentral gyrus with surrounding edema. INFORMATION COLLECTED BY: Nimisha Vega MD Neurosurgical Oncology Fellow Summary: 77F RHD with dx of breast cancer (ER+/MD-/Her2 neg) with response to neoadjuvant chemotherapy with decrease in lesion and lung metastases, presents with a 2 week history of progressive right arm weakness and some speech hesitancy. MRI brain demonstrated a left frontal lesion most consistent with metastasis. She is a good candidate for GKRS for this lesion. - dexamethasone: will taper - needs rx for Pepcid Medical Decision Making Data Review: Personal review of medical records: I have reviewed with the patient history, physical exam, the images and the chart as well the above information. I personally participated in the mora components and agree with the above. Treatment Options and Risks: I have discussed the management options and their respective risks and benefits with the patient. We reviewed the radiographic findings ( above) and their significance. We discussed observations, surgery ( craniotomy vs biopsy), chemotherapy, radiation and radiosurgery. Of these I believe that Gamma knife radiosurgery is the most appropriate next step. We discussed the Gamma Knife procedure including the specific risks and benefits related to the procedure. The morning of the procedure an IV is started and local anesthetic is injected at four sites into the scalp. A reference frame is then secured to the head at those sites - some discomfort (pressure) is common for the first five to ten minutes but then usually goes away. Measurement are taken and then a head CT and brain MRI will be performed. The images will be co-registered for target contouring and treatment planning. The CT scan is necessary to correct for the spatial distortion of the MRI. Both scans will be evaluated by a radiologist and the results will be discussed with the patient. These are transferred to our planning computer where I define the region(s) to be treated. The radiation oncologist reviews the plan and assigns a dose of radiation. The radiation physicist reviews the plan and confirms the machine is working properly. During this time the patient rests in the waiting area. Treatment typically is in the afternoon. The patient lies down on the treatment couch and the head lineman is part of a positioning device that will direct, with great accuracy, up to 192 beams of radiation to converge at the point I picked on the computer. The staff will leave the room prior to treatment and the patient will be monitored by 3 television cameras and 2 intercom systems. The patient will then slide into the device up to their lower chest for a variable duration and number of times as required for the treatment plan and then exit. When the treatment is completed, the patient will be taken to the recovery room where the frame will be removed and band aids applied. The patient will be observed, typically for 1/2 to 2 hours then discharged. Postoperative and follow-up instructions will be given prior to discharge. They understand that this treatment will not prevent new lesions and that if unexpected lesions are found on the day of treatment, I will attempt to treat all accessible lesions however, a staged treatment may be required. They also understand that while the lesion likely represents a metastasis related to the primary cancer, diagnostic certainty can only be achieved by direct pathological examination of tissue obtained via an open surgical procedure. Per the patient's request, we will proceed with scheduling the case in the coming days. All questions and issues were addressed with the patient and they appears satisfied with the current plan. Recommendations: As above Medicines: taper steroid to 6mg daily until the day of GK Instructions: Continue present activity Navdeep Garcia MD August 02, 2017 1:51 PM cc: [place] [id number] [address] [facility] [id number] HOSP Observed: 08/02/2017 Status: COMPLETED Source: [place] 12:00 AM [facility] REPOSITORY Patient Update (NSCAMN) ANNA BARRERA ([id number]) 1940 F Date Time Provider Department 08/02/17 ALISTAIR MARTINEZ (RN) NSCAMN During your visit today, we recorded the following information about you: Allergies As of Date: 08/02/2017 Noted Allergy Reaction ALCOHOL, UNSPECIFIED 01/31/2017 5 - Intolerance Comments: Recovering alcoholic TETRACYCLINE 01/31/2017 14 - Other: See Comments Comments: Thrush in mouth Date Reviewed: 08/02/2017 Reviewed by: Radha Boucher (Parer) SHANNON Rivera - Fully Assessed Primary Visit Diagnosis: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 If Pt. has a central line or IVAD, may access for administration according to line specific nursing protocol.Once exam is complete flush line and de- access according to line specific nursing protocol in the MR contrast administration guidelines linkDisp: 1 EachRfl: 0 CT BRAIN STEREOLOCAL WO IVCON [[id number]] Order #: [id number] FUTURE MRI BRAIN WO/W IVCON [[id number]] Order #: [id number] FUTURE Prescriptions as of 08/02/2017 Sig: DEXAMETHASONE 6 MG TABLET Take 6MG BID x 5 days, then 6* FAMOTIDINE 20 MG TABLET Take 1 tablet by mouth twice * IV CONTRAST (RADIOLOGY PROCED* MRI Brain Localization Inject* LEVOTHYROXINE 125 MCG TABLET 125 mcg once daily. ACETAMINOPHEN 325 MG TABLET Take 650 mg by mouth every 6 * METOPROLOL TARTRATE 50 MG TAB* 50 mg twice daily. LORAZEPAM 0.5 MG TABLET Take 0.25 mg by mouth three t* Problem List As Of Date 08/02/2017 Noted Resolved Breast CA (HCC) [C50.919] INVALID FOR*03/21/2017 More... Malignant neoplasm of overlapping sites of left*INVALID FOR* 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 (HC*INVALID FOR* Prescriptions ordered this encounter Disp Refills Start End IV CONTRAST (RADIOLOGY PROCEDURE) 1 Ea* 0 08/02/2017 08/03/2017 Class: In Office Sig: MRI Brain Localization Inject, intravenously, once for 1 dose.No IV access, insert saline lock prior to beginning of sedation, infusion, injection of imaging exam.Discontinue saline lock post exam. If Pt. has a central line or IVAD, may access for administration according to line specific nursing protocol.Once exam is complete flush line and de-access according to line specific nursing protocol in the MR contrast administration guidelines link Follow-up and Disposition History Recorded Classic SmartForms filed for the Gamma Knife SRS episode: Case Surgical Request Encounter Status:Closed by NAVDEEP GARCIA MD on 08/02/17 BRAIN W/WO CONTRAST Observed: 07/31/2017 Status: F Source: [place] 11:40 AM [facility] [place] REPOSITORY [facility] Imaging Services [address] [place] [address] Brain W/WO Contrast MR#: [id number] Acct: [id number] Name: ANNA BARRERA Rep #: [id number] : 1940 F 77 From: Glenn Taylor DO PCP: Tayla Espinal DO Status: REG CLI Study: Brain W/WO Contrast Date of Exam: 07/31/17 Exam# [id number] Ordering Dr: Ky Burkett DO STUDY: MRI BRAIN WITH AND WITHOUT CONTRAST REASON FOR EXAM: Female, 77 years old. The patient is status post recent mastectomy with known metastatic disease, complaining of right-sided weakness x12 days. TECHNIQUE: Standardized multiplanar fat and water weighted pulse sequences were obtained. 7 ml of Gadavist contrast material was administered intravenously for the contrast portion of the examination. COMPARISON: None. FINDINGS: There is an enhancing intraparenchymal mass lesion within the posterior left frontal lobe measuring 11 x 15 x 13 mm (AP x transverse x craniocaudal). There is extensive surrounding vasogenic edema extending to the cortical ritter-white matter junctions into the posterior lateral horn of the left lateral ventricle. There is mild mass effect with inferior displacement of the left lateral ventricle and with a 3 mm uqap-ny-wawbl shift of the septum pellucidum (coronal T2 series 10, image 14). The white matter edema extends to the precentral gyrus of the left frontal lobe (axial T2 series 6, image 20). There are no additional enhancing intracranial lesions. 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 There are a limited number of small white matter hyperintensities, distributed throughout the deep white matter tracts of the cerebral hemispheres, consistent with mild chronic white matter ischemic changes. There is no evidence for recent intracranial ischemia or other cause of cytotoxic edema on diffusion weighted imaging (DWI). Normal T2* images of the brain without demonstrated susceptibility artifact. There is no demonstrated [...] Normal cerebellum. Normal basal cisterns. Normal bilateral temporal bones. Normal bilateral internal auditory canals. 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 Normal visualized paranasal sinuses. Normal calvarium and skull base. Normal visualized soft tissue structures. Normal visualized upper cervical spine. MRI/Brain W/WO Contrast IMPRESSION: 1. Solitary enhancing intraparenchymal mass lesion involving the posterior left frontal lobe with extensive surrounding vasogenic edema producing a mild hydu-me-ornhp midline shift and mild mass effect, most [...] CC: Tayla Espinal DO; Ky Burkett DO Kitchen Helper: Signed PROGRESS Observed: 07/31/2017 Status: COMPLETED Source: [place] 10:40 AM [facility] REPOSITORY O ID: [id number] Author: Ky Burkett Service: (none) Author Type: Physician Type: Progress Notes Filed: 07/31/2017 11:16 AM Note Text: Diagnosis: 1) Breast cancer. HPI: Patient is a 77-year-old female whom I initially saw in the hospital for consultation. She was admitted on 01/10/2017 for uncontrolled bleeding from a large breast tumor. A CT of the chest was performed in the emergency room. That study demonstrated a 6.2 x 7.3 x 7.7 cm inhomogeneously vascular mass involving the majority of the left breast along the medial aspect. There was diffuse thickening of the overlying skin observed. There was also evidence of increased markings in the lateral portion of the breast. There were small left axillary lymph nodes noted. Dimensions were not rendered. Significantly, multiple nodules were observed in the right lower lobe. The largest measured 2.6 x 1.5 cm. Increased markings were observed at the lung bases just above the bibasilar atelectasis and/or scarring seen. The mediastinum was observed to be normal as were the hilar regions. Multilevel degenerative changes were observed and thoracic spine. The bleeding was controlled with Gelfoam packing. Patient was seen by general surgery. The patient underwent an ultrasound guided biopsy of the left breast mass on 01/11/2017. 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 COMMENT Immunohistochemistry ([id number]) supports the above diagnosis. 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 Case is reviewed in consultation with Dr. Ibarra of [facility] (complete consultative report viewable in patient?s EMR). ER/MD/Lvo3scj studies are being performed on sections of tumor and the results from this study will be reported separately ([id number]). RESULTS: ANTIBODY / CLONE RESULT E-Cad (ECH-6) positive, rare cells CK8 (28yvgkY20) positive, focal P63 (7JUL/4A4) negative Calponin-1 (ZC365R) negative CD56 (123C3.D5) negative Chromo (LK2H10) negative Synapto (polyclonal) negative CK5-6 (D5 AND 1684) positive Ki-67 (30-9) positive, high P53 (DO-7) positive, high Vimentin (V9) positive TTF-1 (8G7G3/1) negative AE1-3 (AE1/AE3/PCK26) positive CD45 (RP2/18) negative MART-1 (A-103) negative CK7 (OV-TL12/30) positive CK20 (KS20.8) noncontributory MORPHOMETRIC ANALYSIS ER (clone 6F11) 17%, weak MD (clone 16/1E2) 0 Her-2Neu (clone CB11) 0-1+ The prognostic test for HER2 is performed on formalin-fixed paraffin embedded tissue. A 3+ (positive) staining pattern is defined as intense, homogeneous, complete, circumferential membranous staining in >10% of contiguous tumor cells. A similar weak (2+) staining pattern is interpreted as equivocal. JENNA follow-up testing is recommended for all equivocal cases. Positivity/negativity for ER/MD is reported if > or < 1% of the tumor cells are immuno- reactive, respectively. The ASCO/CAP criteria is used for scoring. Reference: Journal of Clinical Oncology, 2013; 31:2434-1226 AND 2009; 16:2431-4247. Duration of fixation: 6 Hrs; Sample Adequate: Yes. These assays have not been validated on decalcified tissues. Results should be interpreted with caution given the likelihood of false negativity on decalcified specimens. These tests were developed and their performance characteristics determined by [facility]. They may not have been cleared or approved by the U.S. Food and Drug Administration. The FDA has determined that such clearance or approval is not necessary. 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 Positive for estrogen receptors (favorable prognostic indicator). Negative for progesterone receptors (unfavorable prognostic indicator). Negative for overexpression of NSO7gwa. Patient underwent an echocardiogram on 01/11/2017 as well. That study demonstrated normal left ventricular size and systolic function. The estimated ejection fraction was 65%. No regional wall motion abnormalities were noted. There was mild mitral valve prolapse. Trivial mitral valve insufficiency was noted. There was mild tricuspid valve insufficiency with mild focal aortic valve thickening. Right ventricular systolic pressure estimated to be 29 mmHg. The patient declined any further radiographic workup in the hospital until she had definitive proof of breast cancer via the biopsy. Previous therapy: 1) Neoadjuvant ddAC followed by Taxol x4 cycles. 2) Left modified radical mastectomy with axillary lymph node dissection 2017. 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 Changes consistent with treatment effect (presurgical neoadjuvant) therapy both in breast and in the lymph nodes. Multiple skin lesions, consistent with seborrheic keratosis. Eleven out of 11 lymph nodes negative for metastatic carcinoma. INVASIVE BREAST CANCER SUMMARY: Specimen - total breast (including nipple and skin). Procedure - total mastectomy (including nipple and skin). Lymph node sampling - axillary dissection Specimen integrity - single, intact specimen Specimen laterality - left Tumor site - lower inner quadrant Tumor size - 0.5 x 0.3 cm Tumor focality - single focus of invasive carcinoma Macroscopic and Microscopic extent of tumor: Skin - invasive carcinoma does not invade into the dermis or epidermis Nipple - ductal carcinoma does not involve the nipple epidermis. Skeletal muscle - no skeletal muscle present. Ductal carcinoma in situ (DCIS) - no ductal carcinoma in situ is present. Lobular carcinoma in situ (LCIS) - not identified Histologic type of invasive carcinoma - poorly differentiated carcinoma with basaloid features. Histologic Grade (Elena grade): Glandular/tubular differentiation - score 3 Nuclear pleomorphism - score 3 Mitotic count - score 1 Overall grade - 2 (score of 7) Margins: Margins uninvolved by invasive carcinoma. The tumor is 2 cm away from the deep margin. Treatment effect - response to presurgical (neoadjuvant therapy) - In the breast - definite response to presurgical therapy in the invasive carcinoma. In the lymph node - definite response to presurgical therapy in the metastatic carcinoma. See comment. Lymph-Vascular invasion - not identified Dermal lymph-vascular invasion - not identified Lymph nodes: Number of sentinel lymph nodes examined - 0 Total number of lymph nodes examined (sentinel and nonsentinel) - 11 Number of lymph nodes with macrometastases, micrometastases and isolated tumor cells - 0 Distance metastasis - not applicable Additional pathologic findings: - Extensive area of necrosis, histiocytic reaction and hemorrhage (consistent with presurgical neoadjuvant chemotherapy related changes) - Skin lesions, seborrheic keratosis. - Fibrocystic changes with intraductal hyperplasia without atypia. - Microscopic hyalinized fibroadenoma (0.6 x 0.4 cm) - one lymph node with hemangioma (0.1 cm in greatest dimension). Ancillary studies - previously performed on section of tumor ([id number] / [id number]). 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 PATHOLOGIC STAGE: pT1a(y) pN0 Mx Interim history: She was discharged from the skilled care nursing facility on 19 July. After getting home she noticed right hand heavy duty custodian weakness. She also has had trouble with strength globally in the right arm and she's been having more trouble with her gait. She denies headache and visual changes. She denies neck pain. There is no pain or numbness of the right arm/hand. She did not previously bring the symptoms to my attention. She offers no other complaints. Respiratory status is normal. Specifically no chronic or recurring cough, wheeze or sputum production. No chest pain or shortness of breath at rest or with walking. PMH, medications and allergies personally reviewed by me today. Any changes documented in appropriate section. ROS: Constitutional: No episode of fever, night sweats or shaking chills. Neuro: Denies AYALA, vertigo, dizziness and imbalance. HEENT: No recent change in voice or hearing. Resp: See above. CVS: Denies PND and orthopnea. GI: Denies dysgeusia. Denies symptoms of stomatitis. Denies dysphagia and odynophagia. Denies reflux, n/v, change in bowel habits and abdominal pain. : Denies dysuria or gross hematuria. No symptoms of bladder outlet obstruction. Endo: Denies hot flashes. Denies polyuria and polydipsia. Denies heat and cold intolerance. Musculoskeletal: Denies bone, joint and back pain.. Derm: Denies rash. Denies jaundice and diffuse pruritis. Heme: Denies unexplained bruising. Psych: Normal mood. PHYSICAL EXAM: Vitals: Blood pressure 120/68, pulse 69, temperature 36.5 ?C (97.7 ?F), weight 63 kg (139 lb). Well-appearing and in no acute distress. EYES: Sclerae are anicteric bilaterally. NECK: Supple. LYMPHATIC: There is no palpable cervical, supraclavicular or inguinal adenopathy. RESPIRATORY: Inspiratory breath sounds are of normal intensity in all murcia. CARDIOVASCULAR: Rhythm is regular. Normal intensity S1/S2. There is no gallop or murmur. BREAST: Left mastectomy site is healing very nicely with no sign of infection or fluid collection. There is a firm nontender spindle shaped mass in the left axilla most likely as a consequence of surgery. ABDOMEN: The abdomen is nondistended. No organomegaly. No tenderness. Extremities: Very mild swelling right ankle. SKIN: No jaundice or rash. No petechiae. NEUROLOGIC: milieu manager II-XII are grossly intact. Diminished hand heavy duty custodian strength on the right side. There is mild decrease in biceps strength on the right. Normal biceps reflex. She has decreased hip flexor strength and lower extremity extensor strength on the right. Dorsiflexion weakness of the toes on the right as well. MUSCULOSKELETAL: No muscle wasting. ASSESSMENT/PLAN: (C50.812, Z17.0) Malignant neoplasm of overlapping sites of left breast in female, estrogen receptor positive (HCC) (primary encounter diagnosis) Assessment: -KPS is 90%. -Patient presented with a neglected breast cancer that was locally advanced and had uncontrollable bleeding. In the interest of starting her treatment urgently, biopsy of the lung masses was deferred. -Reviewed pathology with her. 0.5 cm viable tumor. -I personally reviewed CT images and independently verified and agreed with the radiologist's findings. Stable 3 mm right lower lung metastasis. -Has now developed right hemiparesis, age indeterminate. Patient did not have brain MRI at baseline due to claustrophobia. She had CT brain without evidence of metastasis. Plan: -Needs urgent MRI brain. Arranged at [facility] today 11:30 am. -Plan Faslodex and anastrozole once above addressed. Ky Burkett DO CNOVSP Observed: 07/31/2017 Status: COMPLETED Source: [place] 10:10 AM [facility] REPOSITORY Visit (SP) Office (JAYA) ANNA BARRERA ([id number]) 1940 F Date Time Provider Department 07/31/17 10:10 AM KY BURKETT During your visit today, we recorded the following information about you: Temperature Pulse Blood pressure Weight 97.7 degrees 69/minute 120/68 63 kg Cele Kim LPN 07/31/2017 10:22 AM Signed Est patient. Discuss recent labs and CT scan. C/O right arm/hand weakness since the end of June, having difficulty grasping things. Cele Burkett DO 07/31/2017 11:16 AM Signed Diagnosis: 1) Breast cancer. HPI: Patient is a 77-year-old female whom I initially saw in the hospital for consultation. She was admitted on 01/10/2017 for uncontrolled bleeding from a large breast tumor. A CT of the chest was performed in the emergency room. That study demonstrated a 6.2 x 7.3 x 7.7 cm inhomogeneously vascular mass involving the majority of the left breast along the medial aspect. There was diffuse thickening of the overlying skin observed. There was also evidence of increased markings in the lateral portion of the breast. There were small left axillary lymph nodes noted. Dimensions were not rendered. Significantly, multiple nodules were observed in the right lower lobe. The largest measured 2.6 x 1.5 cm. Increased markings were observed at the lung bases just above the bibasilar atelectasis and/or scarring seen. The mediastinum was observed to be normal as were the hilar regions. Multilevel degenerative changes were observed and thoracic spine. The bleeding was controlled with Gelfoam packing. Patient was seen by general surgery. The patient underwent an ultrasound guided biopsy of the left breast mass on 01/11/2017. 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 COMMENT Immunohistochemistry ([id number]) supports the above diagnosis. 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 Case is reviewed in consultation with Dr. Ibarra of [facility] (complete consultative report viewable in patient?s EMR). ER/MD/Pai1vzm studies are being performed on sections of tumor and the results from this study will be reported separately ([id number]). RESULTS: ANTIBODY / CLONE RESULT E-Cad (ECH-6) positive, rare cells CK8 (36hgnrK00) positive, focal P63 (7JUL/4A4) negative Calponin-1 (UX794C) negative CD56 (123C3.D5) negative Chromo (LK2H10) negative Synapto (polyclonal) negative CK5-6 (D5 ANDamp; 1684) positive Ki-67 (30-9) positive, high P53 (DO-7) positive, high Vimentin (V9) positive TTF-1 (8G7G3/1) negative AE1-3 (AE1/AE3/PCK26) positive CD45 (RP2/18) negative MART-1 (A-103) negative CK7 (OV-TL12/30) positive CK20 (KS20.8) noncontributory MORPHOMETRIC ANALYSIS ER (clone 6F11) 17%, weak MD (clone 16/1E2) 0 Her-2Neu (clone CB11) 0-1+ The prognostic test for HER2 is performed on formalin-fixed paraffin embedded tissue. A 3+ (positive) staining pattern is defined as intense, homogeneous, complete, circumferential membranous staining in ANDgt;10% of contiguous tumor cells. A similar weak (2+) staining pattern is interpreted as equivocal. JENNA follow-up testing is recommended for all equivocal cases. Positivity/negativity for ER/MD is reported if ANDgt; or ANDlt; 1% of the tumor cells are immuno- reactive, respectively. The ASCO/CAP criteria is used for scoring. Reference: Journal of Clinical Oncology, 2013; 31:6554-2101 ANDamp; 2010; 16:7238-8197. Duration of fixation: 6 Hrs; Sample Adequate: Yes. These assays have not been validated on decalcified tissues. Results should be interpreted with caution given the likelihood of false negativity on decalcified specimens. These tests were developed and their performance characteristics determined by [facility]. They may not have been cleared or approved by the U.S. Food and Drug Administration. The FDA has determined that such clearance or approval is not necessary. 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 Positive for estrogen receptors (favorable prognostic indicator). Negative for progesterone receptors (unfavorable prognostic indicator). Negative for overexpression of IVR0rvx. Patient underwent an echocardiogram on 01/11/2017 as well. That study demonstrated normal left ventricular size and systolic function. The estimated ejection fraction was 65%. No regional wall motion abnormalities were noted. There was mild mitral valve prolapse. Trivial mitral valve insufficiency was noted. There was mild tricuspid valve insufficiency with mild focal aortic valve thickening. Right ventricular systolic pressure estimated to be 29 mmHg. The patient declined any further radiographic workup in the hospital until she had definitive proof of breast cancer via the biopsy. Previous therapy: 1) Neoadjuvant ddAC followed by Taxol x4 cycles. 2) Left modified radical mastectomy with axillary lymph node dissection 2017. 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 Changes consistent with treatment effect (presurgical neoadjuvant) therapy both in breast and in the lymph nodes. Multiple skin lesions, consistent with seborrheic keratosis. Eleven out of 11 lymph nodes negative for metastatic carcinoma. INVASIVE BREAST CANCER SUMMARY: Specimen - total breast (including nipple and skin). Procedure - total mastectomy (including nipple and skin). Lymph node sampling - axillary dissection Specimen integrity - single, intact specimen Specimen laterality - left Tumor site - lower inner quadrant Tumor size - 0.5 x 0.3 cm Tumor focality - single focus of invasive carcinoma Macroscopic and Microscopic extent of tumor: Skin - invasive carcinoma does not invade into the dermis or epidermis Nipple - ductal carcinoma does not involve the nipple epidermis. Skeletal muscle - no skeletal muscle present. Ductal carcinoma in situ (DCIS) - no ductal carcinoma in situ is present. Lobular carcinoma in situ (LCIS) - not identified Histologic type of invasive carcinoma - poorly differentiated carcinoma with basaloid features. Histologic Grade (Elena grade): Glandular/tubular differentiation - score 3 Nuclear pleomorphism - score 3 Mitotic count - score 1 Overall grade - 2 (score of 7) Margins: Margins uninvolved by invasive carcinoma. The tumor is 2 cm away from the deep margin. Treatment effect - response to presurgical (neoadjuvant therapy) - In the breast - definite response to presurgical therapy in the invasive carcinoma. In the lymph node - definite response to presurgical therapy in the metastatic carcinoma. See comment. Lymph-Vascular invasion - not identified Dermal lymph-vascular invasion - not identified Lymph nodes: Number of sentinel lymph nodes examined - 0 Total number of lymph nodes examined (sentinel and nonsentinel) - 11 Number of lymph nodes with macrometastases, micrometastases and isolated tumor cells - 0 Distance metastasis - not applicable Additional pathologic findings: - Extensive area of necrosis, histiocytic reaction and hemorrhage (consistent with presurgical neoadjuvant chemotherapy related changes) - Skin lesions, seborrheic keratosis. - Fibrocystic changes with intraductal hyperplasia without atypia. - Microscopic hyalinized fibroadenoma (0.6 x 0.4 cm) - one lymph node with hemangioma (0.1 cm in greatest dimension). Ancillary studies - previously performed on section of tumor ([id number] / [id number]). 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 PATHOLOGIC STAGE: pT1a(y) pN0 Mx Interim history: She was discharged from the skilled care nursing facility on 19 July. After getting home she noticed right hand heavy duty custodian weakness. She also has had trouble with strength globally in the right arm and she's been having more trouble with her gait. She denies headache and visual changes. She denies neck pain. There is no pain or numbness of the right arm/hand. She did not previously bring the symptoms to my attention. She offers no other complaints. Respiratory status is normal. Specifically no chronic or recurring cough, wheeze or sputum production. No chest pain or shortness of breath at rest or with walking. PMH, medications and allergies personally reviewed by me today. Any changes documented in appropriate section. ROS: Constitutional: No episode of fever, night sweats or shaking chills. Neuro: Denies AYALA, vertigo, dizziness and imbalance. HEENT: No recent change in voice or hearing. Resp: See above. CVS: Denies PND and orthopnea. GI: Denies dysgeusia. Denies symptoms of stomatitis. Denies dysphagia and odynophagia. Denies reflux, n/v, change in bowel habits and abdominal pain. : Denies dysuria or gross hematuria. No symptoms of bladder outlet obstruction. Endo: Denies hot flashes. Denies polyuria and polydipsia. Denies heat and cold intolerance. Musculoskeletal: Denies bone, joint and back pain.. Derm: Denies rash. Denies jaundice and diffuse pruritis. Heme: Denies unexplained bruising. Psych: Normal mood. PHYSICAL EXAM: Vitals: Blood pressure 120/68, pulse 69, temperature 36.5 ?C (97.7 ?F), weight 63 kg (139 lb). Well-appearing and in no acute distress. EYES: Sclerae are anicteric bilaterally. NECK: Supple. LYMPHATIC: There is no palpable cervical, supraclavicular or inguinal adenopathy. RESPIRATORY: Inspiratory breath sounds are of normal intensity in all murcia. CARDIOVASCULAR: Rhythm is regular. Normal intensity S1/S2. There is no gallop or murmur. BREAST: Left mastectomy site is healing very nicely with no sign of infection or fluid collection. There is a firm nontender spindle shaped mass in the left axilla most likely as a consequence of surgery. ABDOMEN: The abdomen is nondistended. No organomegaly. No tenderness. Extremities: Very mild swelling right ankle. SKIN: No jaundice or rash. No petechiae. NEUROLOGIC: milieu manager II-XII are grossly intact. Diminished hand heavy duty custodian strength on the right side. There is mild decrease in biceps strength on the right. Normal biceps reflex. She has decreased hip flexor strength and lower extremity extensor strength on the right. Dorsiflexion weakness of the toes on the right as well. MUSCULOSKELETAL: No muscle wasting. ASSESSMENT/PLAN: (C50.812, Z17.0) Malignant neoplasm of overlapping sites of left breast in female, estrogen receptor positive (HCC) (primary encounter diagnosis) Assessment: -KPS is 90%. -Patient presented with a neglected breast cancer that was locally advanced and had uncontrollable bleeding. In the interest of starting her treatment urgently, biopsy of the lung masses was deferred. -Reviewed pathology with her. 0.5 cm viable tumor. -I personally reviewed CT images and independently verified and agreed with the radiologist's findings. Stable 3 mm right lower lung metastasis. -Has now developed right hemiparesis, age indeterminate. Patient did not have brain MRI at baseline due to claustrophobia. She had CT brain without evidence of metastasis. Plan: -Needs urgent MRI brain. Arranged at [facility] today 11:30 am. -Plan Faslodex and anastrozole once above addressed. DO Ky Lopez DO 07/31/2017 5:08 PM Signed Addended by: KY BURKETT DO on: 07/31/2017 05:08 PM Modules accepted: Orders Referring Provider: KY BURKETT [[id number]] Allergies As of Date: 07/31/2017 Noted Allergy Reaction ALCOHOL, UNSPECIFIED 01/31/2017 5 - Intolerance Comments: Recovering alcoholic TETRACYCLINE 01/31/2017 14 - Other: See Comments Comments: Thrush in mouth Date Reviewed: 07/31/2017 Reviewed by: Cele Kim LPN - Fully Assessed Reason for Visit: Established Patient [175] Primary Visit Diagnosis:Malignant neoplasm of overlapping sites of left breast in female, estrogen receptor positive (HCC) [C50.812, Z17.0] Other Visit Diagnoses: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 If Pt. has a central line or IVAD, may access for administration according to line specific nursing protocol.Once exam is complete flush line and de-access according to line specific nursing protocol in the MR contrast administration guidelines linkDisp: 1 EachRfl: 0 dexamethasone (DECADRON) 6 mg tabletTake 1 tablet by mouth every 6 hours.Disp: 60 tabletRfl: 0 Prescriptions as of 07/31/2017 Sig: LEVOTHYROXINE 125 MCG TABLET 125 mcg once daily. ACETAMINOPHEN 325 MG TABLET Take 650 mg by mouth every 6 * METOPROLOL TARTRATE 50 MG TAB* 50 mg twice daily. LORAZEPAM 0.5 MG TABLET Take 0.25 mg by mouth three t* IV CONTRAST (RADIOLOGY PROCED* MRI Brain Inject, intravenous* DEXAMETHASONE 6 MG TABLET Take 1 tablet by mouth every * CLOTRIMAZOLE 1 % TOPICAL CREAM Apply 1 application to affect* TRIAMCINOLONE ACETONIDE 0.025* Apply 1 application to affect* MUCINEX COUGH ORAL Take 2 tablets by mouth twice* LEVOTHYROXINE 88 MCG TABLET ONDANSETRON HCL 8 MG TABLET Take 1 tablet by mouth every * DILTIAZEM SR 180 MG 24 HR CAP 180 mg once daily. Medication notes this encounter TRIAMCINOLONE ACETONIDE 0.025 % TOPICAL CREAM >> Cele Kim LPN 07/31/2017 10:00 AM >> CELE KIM LPN [facility] Jul 31, 2017 10:00 AM discontinued DILTIAZEM SR 180 MG 24 HR CAP >> Cele Kim LPN 07/31/2017 10:00 AM >> CELE KIM LPN [facility] Jul 31, 2017 10:00 AM discontinued Problem List As Of Date 07/31/2017 Noted Resolved Breast CA (HCC) [C50.919] INVALID FOR*03/21/2017 More... Malignant neoplasm of overlapping sites of left*INVALID FOR* 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 (HC*INVALID FOR* Visit Notes: >> Cele Kim LPN MonJul 31, 2017 9:56 AM Status: Signed Est patient. Discuss recent labs and CT scan. C/O right arm/hand weakness since the end of June, having difficulty grasping things. Cele Kim LPN Encounter Status:Closed by KY BURKETT DO on 07/31/17 MR-BRAIN W/WO Observed: 07/31/2017 Status: F Source: [place] CONTRAST IMPORT 12:00 AM [facility] REPOSITORY Images were obtained outside of [facility] [id number] CT CHEST W IVCON Observed: 07/26/2017 Status: F Source: [place] 2:02 PM [facility] REPOSITORY * * *Final Report* * * DATE OF EXAM: Jul 26 2017 2:02PM [facility] 0539 - CT CHEST W IVCON / PROCEDURE REASON: multiple diagnoses * * * * Physician Interpretation * * * * EXAMINATION: CHEST CT WITH CONTRAST Indication: Malignant neoplasm of overlapping sites of left female breast Estrogen receptor positive status (ER+) Secondary malignant neoplasm of right lung Technique: Spiral CT acquisition of the chest from the thoracic inlet to the upper abdomen following IV contrast. M: CTCW_4 Contrast: 50 mL Omnipaque [address] Dose-Length Product: 157 mGy*cm CT Dose Reduction Employed: Automated exposure control (AEC) Comparison: 05/29/2017, 01/24/2017 enhanced chest CTs RESULT: Limitations: None. Lines, tubes, and devices: None. Lung parenchyma and pleura: No consolidation. Stable 3 mm subpleural anterolateral right lower lobe nodule (image 106); previously 12 x 16 mm on 02/03/2017. No new pulmonary nodule. No pleural effusion. Central airways are patent. Minimal far distal lingular fibrosis, stable. Thoracic inlet, heart, and mediastinum: No lymphadenopathy in the axillary, mediastinal, or hilar regions. The thoracic aorta and main pulmonary artery are normal in caliber. Heart size is upper normal. Mild coronary artery atherosclerosis. No pericardial effusion or thickening. Bones and soft tissues: Skin thickening along the distal left paramidline anterior chest wall at the level of the xiphoid with adjacent subtle 8 x 11 mm subcutaneous nodular density (image 147) are new since the prior study. No destructive bone lesion. Remote left posterior 6th and posterolateral 7th and 8th rib fractures. Interval left mastectomy and axillary node dissection. Upper abdomen: Hypodense 7 x 4 mm (image 179) and 9 x 10 mm (image 166) right hepatic lesions; and hypodense 11 mm splenic lesion (image 154) are stable since 02/03/2017 (the earliest CT available). IMPRESSION: 1. Interval left mastectomy and axillary lymph node node dissection. 2. Small area of skin thickening and subtle subcutaneous nodular density immediately adjacent, seen along the left paramidline anterior soft tissues at the level of the xiphoid, may simply reflect postsurgical change, however attention to this area on follow-up examinations is recommended. 3. Stable 3 mm right lower lobe nodule (previously 12 x 16 mm on 02/03/2017). No new pulmonary nodule. 4. Stable hypodense hepatic and splenic lesions since 02/03/2017 (the earliest CT available). Kitchen Helper: PSCB Transcribe Date/Time: Jul 26 2017 5:14P Dictated by : INNA COX MD This examination was interpreted and the report reviewed and electronically signed by: INNA COX MD on Jul 26 2017 5:26PM EST [id number] Observed: 07/26/2017 Status: COMPLETED Source: [place] 2:00 PM [facility] REPOSITORY HNO ID: [id number] Author: Delphine Sequeira Ct Service: (none) Author Type: (none) Type: Progress Notes Filed: 07/26/2017 2:01 PM Note Text: Radiology Service Progress Note PATIENT NAME: Anna Barrera DATE OF SERVICE: July 26, 2017 TIME: 2:01 PM PATIENT IDENTITY VERIFICATION COMPLETED USING TWO (2) METHODS: Patient confirmed name verbally and Date of . PATIENT GENDER DATA: Female. status: : No status: NO. PATIENT RELEVANT IMPLANT DATA REVIEWED: Yes CONTRAST INDUCED NEPHROPATHY RISK FACTORS: Patient age > 60 years CREATININE: Creatinine Date Value Ref Range Status 07/05/2017 0.57 (L) 0.58 - 0.96 mg/dL Final 01/31/2017 0.79 0.58 - 0.96 mg/dL Final Creatinine, Whole Blood (iSTAT) Date Value Ref Range Status 07/26/2017 0.70 0.70 - 1.40 mg/dL Final 05/29/2017 0.80 0.70 - 1.40 mg/dL Final 05/16/2017 0.60 (L) 0.70 - 1.40 mg/dL Final eGFR-All Other Races Date Value Ref Range Status 07/26/2017 >60 . Final Comment: eGFR (Estimated GFR) Units of measure: mL/min/1.73 meters squared eGFR is derived from the reexpressed MDRD Study equation using the following parameters: serum creatinine, age, gender and race. The creatinine assay has been calibrated to be traceable to IDMS. An eGFR <60 mL/min/1.73m2 for >3 months is consistent with chronic kidney disease. Refer to KDOQI guidelines for clinical interpretation. In patients with unstable renal function, e.g. those with acute kidney injury, the eGFR may not accurately reflect actual GFR. eGFR- Date Value Ref Range Status 07/26/2017 >60 Final P.O.C.T. RESULTS: POC done: Yes, See Lab Tab July 26, 2017 RADIOLOGIST NOTIFIED?: No ALLERGIES: Reviewed and unchanged CONTRAST ALLERGY: NO. PERIPHERAL IV ACCESS: Ambulatory: IV type: A peripheral IV was started in the Right antecubital site with a Angio cath: 20 gauge., Site assessment: Clean,Dry and Intact, Site disposition Discontinued RADIOLOGY DEPARTMENT: CT; Exam(s) Completed: Chest SIGNED BY: Delphine Sequeira Ct July 26, 2017 2:01 PM [facility] ABS GR + CBC Collected: 07/26/2017 Status: F Source: [place] 1:35 PM [facility] REPOSITORY TYPE CODE TESTS RESULT OUT OF REFERENCE UNITS RANGE LAB WWBC 3.70-11.00 k/uL [place] WBC 5.22 LAB WRBC 3.90-5.20 m/uL [place] RBC 4.17 LAB WHGB 11.5-15.5 g/dL [place] Hemoglobin 12.4 LAB WHCT 36.0-46.0 % [place] Hematocrit 39.9 LAB WMCV 80.0-100.0 fL [place] MCV 95.7 LAB WMCH 26.0-34.0 pg [place] MCH 29.7 LAB WMCHC 30.5-36.0 g/dL [place] MCHC 31.1 LAB WRDW 11.5-15.0 % [place] RDW 13.6 LAB WPLT 150-400 k/uL [place] Platelet Cnt 314 LAB WMPV 9.0-12.7 fL [place] MPV 9.4 Result Comment: Test performed at: [facility] [address], [place] [address]. LAB ABGRAN 1.45-7.50 k/uL Absol Gran 2.73 Count [facility] ISTAT BMP Collected: 07/26/2017 Status: F Source: [place] 1:35 PM [facility] REPOSITORY TYPE CODE TESTS RESULT OUT OF REFERENCE UNITS RANGE LAB NAWB 132-148 mmol/L Sodium, Whole 141 Bld LAB K1WB 3.5-5.0 mmol/L Potassium,Who 4.0 le Bld LAB CLWB 98-110 mmol/L Chloride, 99 Whole Bld LAB ICAWB 1.08-1.30 mmol/L Ionized 1.27 Calcium, WB Result Comment: Please note: This value represents ionized calcium not total calcium. LAB CO2WB 23-32 mmol/L TCO2, Whole Blood 30 LAB GLUWB 65-100 mg/dL Glucose, Whole Bld 92 LAB BUNWB 8-25 mg/dL BUN, Whole Blood 11 LAB BCRET 0.70-1.40 mg/dL Creatinine,Wh ole Bld 0.70 LAB AGAPWB 0-15 mmol/L Anion Gap, Whole Bld 12 LAB GFRAA eGFR- Amer. >60 LAB GFRNAA . eGFR-All Other Races >60 Result Comment: eGFR (Estimated GFR) Units of measure: mL/min/1.73 meters squared eGFR is derived from the reexpressed MDRD Study equation using the following parameters: serum creatinine, age, gender and race. The creatinine assay has been calibrated to be traceable to IDMS. An eGFR <60 mL/min/1.73m2 for >3 months is consistent with chronic kidney disease. Refer to KDOQI guidelines for clinical interpretation. In patients with unstable renal function, e.g. those with acute kidney injury, the eGFR may not accurately reflect actual GFR. INITAL EVALUATION (1) Observed: 07/24/2017 Status: F Source: [place] - PT 10:27 AM [facility] REPOSITORY [facility] Physical [facility] [address] [place] [address] Fax REHABILITATION SERVICES INITIAL EVALUATION MR#: [id number] Acct: [id number] Name: ANNA BARRERA Rep #: [id number] : 1940 77 From: Alistair Rodriguez DPT Referring DrAlondra: Stacey Pizano PA-C Status: REG RCR Insurance: [employer] MEDICARE A ONLY Patient's Visit Information ANNA BARRERA is a 77 year old F referred to Physical Therapy by Stacey GARCIA with a diagnosis of Left Breast Cancer. Date of Evaluation: 07/24/17 Physical Therapist: Alistair Rodriguez - Visit Plan Frequency: 2x /Week Duration: 6 Weeks Plan: Focus on LE and core s/s and functional mobility. - Subjective Subjective: January 10, 2017 found a tumor which started bleeding - went to ER- admitted for [address] Paredes and Dr. Merritt. Sent her to [place]- which she lived in until Monday. Chemo 8x- CT scans- mets on the right lower lobe of the lung- Chest wall, fascia, muscle of the chest. Will have another scan at [facility] next monday. Does not have to [...] Frame: 4-6 Weeks Goal 2:: Patient will ambulate >800 feet with no SOB to demonstrate increased endurance Goal Time Frame: 4-6 Weeks Goal 3:: Patinet will demo 4+/5 strength in LE where deficit Goal Time Frame: 4-6 Weeks Goal 4:: Patient will maintain proper posture t/o tx session to demo increased core s/s. Goal Time Frame: 4-6 Weeks - Rehabilitation Potential Physical Therapy Diagnosis: Patient presents with hypomobility- she has decreased strength and muscular endurance [...] to be FAXED BACK to us at [phone] for Medicare purposes. Please let me know if there are questions or concerns regarding this plan of care. Physician Signature: Date: <Electronically signed by Alistair Rodriguez DPT> 07/24/17 1027 CC: Stacey Pizano PA-C; Tayla Espinal DO ELR Signed For Medicare only, by signing this I certify the plan of care. Physicians Signature Date Observed: 07/15/2017 Status: F Source: [place] CDIFF (MOLECULAR) 11:50 AM [facility] REPOSITORY Order Date: 07/15/17 Cdiff-Molecular Normal Reference Range = Negative C. Diff DNA Negative- No toxigenic C. Diff DNA Detected NAAT METHOD Testing was performed using nucleic acid amplification Performed By: #### M100.6796 #### [facility] Laboratory [facility] [place], [address] Observed: 07/15/2017 Status: F Source: [place] ENTERIC PATHOGEN 11:50 AM [facility] PANEL STOOL REPOSITORY Order Date: 07/15/17 EP PANEL STOOL Normal Reference Range = Not Detected Not detected for Campylobacter group, Salmonella species, Shigella species, Vibrio Group, Yersinia enterocolitica, EHEC (Shiga Toxin 1, Shiga Toxin 2), Norovirus Gl/Gll, and Rotavirus A. Other common stool pathogens are not detected on this panel include: Aeromonas/Plesiomonas or parasites. Order testing for these organisms separately if suspected. This is an amplified DNA test which makes it both specific and sensitive. RESULTS CALLED TO PEPPER/ED 07/15/17 1450 Tracee Monteiro. Copy of report sent to Infection Control Printer [id number] 07/15/17 3580 MEREDITHNNEMMA. CAMPYLOBACTER Not Detected Salmonella Not Detected Shigella sp. Not Detected Shiga Toxin Not Detected Yersinia Not Detected VIBRIO Not Detected Norovirus Norovirus Detected Rotavirus Not Detected ORGANISM 1: Norovirus Performed By: #### M100.637 #### [facility] [address] [place], [place], [address] DISCHARGE INSTRUCTION Observed: 07/15/2017 Status: F Source: [place] 10:47 AM [facility] REPOSITORY [facility] Medical Records Department [address] [place] [address] Discharge Instruction 07/15/17 1045 MR#: [id number] Acct: [id number] Name: ANNA BARRERA Rep #: [id number] : 1940 77 From: Tre Mcguire DO PCP: Tayla Espinal DO Status: REG ER ED Disposition - Plan for ED Patient: Chief Complaint: Diarrhea Instructions: ED Gastroenteritis Report Pend Prescriptions: Loperamide HCl [Imodium A-D] 2 mg PO 4X/DAY PRN PRN #30 tab PRN Reason: Diarrhea Referrals: Tayla Espinal DO [Primary Care Provider] - 3-5 Days What to do if you have Problems For any increased pain, shortness of breath, bleeding, nausea or vomiting, chest pain, or any unexpected problems, contact your Primary Care Provider. Call [facility] ([phone]) or report to the closest Emergency Room. Call 911 if necessary. 07/15/17 1047 <Electronically signed by Tre Mcguire DO> Date Tre Mcguire DO Cosigner Signature (If Indicated): Date CC: Tayla Espinal DO EMERGENCY DEPARTMENT Observed: 07/15/2017 Status: F Source: [place] SUMMARY 10:45 AM [facility] REPOSITORY [facility] Medical Records Department [address] [place] [address] Emergency Department Summary 07/15/17 1042 MR#: [id number] Acct: [id number] Name: ANNA BARRERA Rep #: [id number] : 1940 77 From: Tre Mcguire DO PCP: Tayla Espinal DO Status: REG ER - ER Visit Summary Date of Service: 07/15/17 Chief Complaint: [Diarrhea] History of Present Illness: The patient is a 77 F [presents to the emergency department with symptoms of diarrhea that started this morning around 7 AM. Patient states she has had 3-4 watery stools. Patient is from [facility]. Patient denies any abdominal pain or blood in her stool. Patient has not been on antibiotics recently. She denies recent travel. Patient was concerned because she had breast cancer with left mastectomy and had chemotherapy 3 months ago. Patient has a history of hypothyroidism and history of atrial fibrillation however she is not currently on a blood thinner. Patient denies any fevers. She was told at the [facility] that her temperature was 99.2 and it [...] no rebound or rigidity, no peritoneal signs. Extremities-intact 4, normal range of motion, normal pulses, atraumatic] Test Results: [CBC with differential obtained showed a white blood cell count 5.2, hemoglobin 11, hematocrit 35, platelets 212. Chemistries were normal. Orthostatic vital signs were negative. Stool was ordered for C. difficile and enteric pathogens however patient was unable to produce a sample here.] Emergency Department Course and Treatment: [Patient was given a liter normal saline fluid bolus.] Treatment Plan: [I discussed case with [...] C. difficile and enteric pathogens. Patient will be given a prescription for Imodium.] Disposition: [Discharged to home in stable condition] Impression: [Diarrhea] This note was generated with [employer] dictation software. It may contain incorrect words, spelling, and punctuation that were not noted in review of the chart prior to signing ED Disposition - Plan for ED Patient: Chief Complaint: Diarrhea Referrals: Tayla Espinal, DO [Primary Care Provider] - What to do if you have Problems For any increased pain, shortness of breath, bleeding, nausea or vomiting, chest pain, or any unexpected problems, contact your Primary Care Provider. Call [facility] ([phone]) or report to the closest Emergency Room. Call 911 if necessary. 07/15/17 1045 <Electronically signed by Tre Mcguire DO> Date Tre Mcguire DO Cosigner Signature (If Indicated): Date CC: Tayla Espinal DO CBC W/DIFF, AUTOMATED Collected: 07/15/2017 Status: F Source: [place] 9:50 AM [facility] REPOSITORY TYPE CODE TESTS RESULT OUT OF RANGE REFERENCE UNITS LAB L100.1000 4.4-11.0 K/mm3 Normal WBC 5.2 LAB L100.1200 4.2-5.4 M/mm3 Low RBC 3.73 LAB L100.1300 12.0-15.0 g/dl Low HGB 11.1 LAB L100.1400 37-47 % Low HCT 35.5 LAB L100.1500 81-99 fL Normal MCV 95.2 LAB L100.1600 27.0-32.0 pg Normal MCH 29.8 LAB L100.1700 32-36 g/gl Low MCHC 31.3 LAB L100.1810 11.6-14.6 % Normal RDW CV 14.2 LAB L100.1820 35.1-43.9 fl High RDW SD 48.8 LAB L100.1900 150-450 K/mm3 Normal PLT 212 LAB L100.2000 6.2-12.0 fl Normal MPV 9.3 LAB L100.2100 47-70 % High NEUT% 79.8 LAB L100.2200 19-41 % Low LY% 7.7 LAB L100.2300 0-10 % Normal MONO% 5.6 LAB L100.2400 0-5 % High EO% 6.9 LAB L100.2500 0-1 % Normal BASO% 0.0 LAB L100.2550 0.0-0.9 % Normal IM GRAN % 0.000 Result Comment: IG% - Immature Granulocytes (promyelocytes, myelocytes and metamyelocytes) > 1% indicates that a LEFT SHIFT is Present. LAB L100.2620 2.0-7.7 X10 3/uL Normal Absolute Neut 4.1 LAB L100.2720 0.83-4.51 X10 3/ul Low Absolute Lymph 0.40 LAB L100.4500 Normal SMEAR COMMENT SCANNED Performed By: #### L100.0100 #### [facility] [address] [place], [place], [id number] BASIC METABOLIC Collected: 07/15/2017 Status: F Source: [place] PROFILE (BMP) 9:50 AM [facility] REPOSITORY TYPE CODE TESTS RESULT OUT OF RANGE REFERENCE UNITS LAB L501.0100 70-110 mg/dL Normal GLU 100 LAB L501.1000 7-18 mg/dL High BUN 20 LAB L501.1100 0.55-1.02 mg/dL Low 0.53 CREAT,SERUM Result Comment: The validity of the calculated GFR AND GFRAA in patients over 70 years has not been determined. Clinical correlation is essential. LAB L501.1110 >60 mL/min Normal EST GFR 120 Result Comment: Non- GFR Calc LAB L501.1115 >60 mL/min Normal EST GFR - AA 146 Result Comment: GFR Calc LAB L501.1255 ml/min Normal Estimated CRCL 43.07 LAB L501.1300 10-20 RATIO High BUN/CRE 38.0 LAB L501.2200 8.5-10 mg/dL Normal .1 CA 8.6 LAB L501.5300 136-14 mmol/L Normal 5 NA 136 LAB L501.5600 3.5-5. mmol/L Normal 1 K 3.7 LAB L501.5900 98-107 mmol/L Normal CL 103 LAB L501.6100 21.0-3 mmol/L Normal 2.0 CO2 24.0 LAB L501.6200 5-15 Normal GAP 9 Performed By: #### L500.2500 #### [facility] [address] [place], [place], [address] SURGERY VISIT REPORT Observed: 07/13/2017 Status: F Source: [place] 8:55 AM [facility] REPOSITORY [facility] [address] [place] [id number] OFFICE VISIT Date of Service: 07/12/17 MR#: [id number] Acct: [id number] Name: BRUCEANNA Garnica Rep #: [id number] : 1940 Provider: Stacey Pizano PA-C Age/Sex: 77/F Location: [facility] Status: Signed Intake Intake Visit Reasons: F/U MASTECTOMY/CEBUL Steward/Stewardess Wine Required: No Is patient in pain?: Yes (Left Axilla) Pain scale (1-10): 3 Allergies shellfish derived Allergy (Verified 07/12/17 13:22) Hives tetracycline [Tetracycline] Allergy (Verified 07/12/17 13:22) Other alcohol Adverse Reaction (Verified 07/12/17 13:22) Unknown Medications Lorazepam [Ativan] 0.25 mg PO TID PRN PRN 07/14/13 [History Confirmed 07/12/17] Metoprolol Tartrate [Lopressor (beta mike)] 50 mg PO BIDCM 07/14/13 [History Confirmed 07/12/17] Diltiazem HCl [Diltiazem ER] 180 mg PO DAILY 01/10/17 [History Confirmed 07/12/17] Acetaminophen [Tylenol Tablet] 650 mg PO Q6H PRN PRN #30 tab 01/12/17 [Rx Confirmed 07/12/17] Levothyroxine [Synthroid] 125 mcg [...] fibrillation (Chronic) Surgical History History of modified radical mastectomy of left breast (Acute) S/P breast [...] Patient returns for a follow-up from breast cancer. Patient is overall doing well. She notes she does not have to have radiation. Patient noted a new left axillary lump which appeared on Monday. Patient notes the lump is tender to palpation otherwise does not bother her. She would like to return to physical therapy for her left shoulder. She denies incisional pain/discomfort. Previous history: ANNA BRUCE, is a 77 F I am following for left breast cancer. Dr. Merritt performed a left modified radical mastectomy on 2017. Patient tolerated the procedure well. 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 Changes consistent with presurgical treatment in both breast and lymph nodes. Multiple skin lesions consistent with seborrheic keratosis. Eleven out of 11 nodes negative for metastatic carcinoma. Tumor size 0.5 x 0.3 cm. Single focus of invasive carcinoma. Estrogen positive, 38%. Pathologic stage pT1a pN0 Mx. Patient denies incisional pain/discomfort. She notes fatigue however this was present prior to the surgery. She [...] distress Chest Other: Left chest incision- c/d/i. No erythema or infection noted. There is a palpable left axillary mass. It is mobile and tender to deep palpation. Assessment AND Plan Problems 1. 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 Mass of left axilla R22.32 Plan - Dr. Merritt also evaluated this patient - May return to therapy at [facility] - Prescription for mastectomy bras was provided [...] CC: Tayla Espinal DO; Ky Burkett DO PROGRESS Observed: 07/12/2017 Status: COMPLETED Source: [place] 10:45 AM [facility] REPOSITORY HNO ID: [id number] Author: Myke Denise Service: (none) Author Type: Physician Type: Progress Notes Filed: 07/12/2017 1:12 PM Note Text: Radiation Oncology - New Patient/Consult Note PATIENT NAME: Anna Barrera PATIENT REQUESTING PROVIDER: Ky Burkett DO DIAGNOSIS: Metastatic breast cancer s/p chemotherapy with ddAC followed by Taxol x4 cycles, s/p left mastectomy and axillary node dissection on 06/22/17. HPI: 77 year old female who presents with above diagnosis, for an opinion regarding the role of radiation therapy in the management of the patient's disease. Final recommendations will be communicated back to the requesting physician by way of the shared medical record, or letter to requesting physician via US mail. 77 year old woman who presented with uncontrolled bleeding from the large left breast tumor in December,. The bleeding was controlled with Gelfoam packing. CT chest on 01/10/17 showed a 6.2 cm x 7.3 cm x 7.7 cm inhomogeneous vascular mass involving the majority of the left breast along the medial aspect. There is diffuse overlying skin thickening. There are small left axillary lymph nodes. Multiple nodules are seen in the right lower lobe. The largest measures 2.6 cm x 1.5 cm. Core biopsy of the left breast lesion on 01/17/17 showed poorly differentiated ductal carcinoma. It's ER positive (38%, weak to moderate), MD negative (0%) and Her2/nicko 0. She had staging CT chest/abdomen/pelvis and brain and bone scan in January. She has multiple bilateral lung metastases and indeterminate low-density lesion in the superior aspect of the spleen. She had chemotherapy with ddAC followed by Taxol x4 cycles. Restaging CT chest on 05/29/17 showed interval further decrease in size of right lower lobe pulmonary nodule and Interval decrease in size of left breast mass and significant decrease in fluid collection/necrosis.She underwent left MRM and axillary node dissection on 06/22/17. Pathology showed invasive poorly differentiated carcinoma, basaloid carcinoma, measuring 0.5 x 0.3 cm with negative surgical margin. The closest margin was 2 cm from the deep margin. It's a grade 2 tumor without LVI. There was no skin or chest wall involvement. All eleven axillary nodes were negative for metastasis. There were changes consistent with treatment effect in breast and lymph nodes. ALLERGIES Allergen Reactions - Alcohol, Unspecified Intolerance Recovering alcoholic - Tetracycline Other: See Comments Thrush in mouth PAST MEDICAL HISTORY Diagnosis Date - Alcohol abuse, in remission - Anxiety - Atrial fibrillation (HCC) - Hypertension - Hypothyroid Prior radiation therapy, collagen vascular disease, or inflammatory bowel disease: Possible I-131 tx 30 years ago. status: Post-menopausal. PAST SURGICAL HISTORY Procedure Laterality Date - INGUINAL HERNIA REPAIR HX Right - TONSILLECTOMY HX Adenoidectomy FAMILY HISTORY Problem Relation Age of Onset - ovarian cyst [OTHER] Mother - small cell lung cancer [OTHER] Sister - pancreatic cancer [OTHER] Maternal Grandmother - Stroke Maternal Grandfather - Thyroid Sister Social History Marital status: Single Spouse name: Years of education: Number of children: Social History Main Topics Smoking status: Former Smoker Packs/day: 0.50 Years: 3.00 Types: Cigarettes Quit date: 06/19/1977 Smokeless status: Never Used Alcohol use: No Comment: alcoholic- dry since Drug use: No COMPLETE REVIEW OF SYSTEMS: GENERAL: 15 pounds of weight loss since January. HEENT: Negative for sudden vision or hearing changes. NECK: Negative for masses in the neck. RESPIRATORY: Negative for cough or shortness of breath. CARDIAC: Negative for chest pain, palpitations, murmurs, or syncopal episodes. GI: Negative for nausea, vomiting, diarrhea, constipation, blood per rectum, or melena. : Negative for dysuria, hematuria, urgency, frequency or incontinence. MUSCULOSKELETAL: Limitation of the left arm movement after surgery but it's improving. NEURO: bilateral toes numbness. HEMATOLOGIC: easy bruising. SKIN: Negative for rashes or other skin changes. PHYSICAL EXAM: VS: BP 123/58 Pulse 67 Temp 36.9 ?C (98.5 ?F) Resp 20 Wt 66 kg (145 lb 8 oz) SpO2 98% BMI 25.57 kg/m2 KPS: 90 General Appearance: Alert and oriented. No acute distress. HEENT: NCAT. Sclera anicteric. EOMI. Neck: Normal ROM. Chest: No respiratory distress. Lungs clear to auscultation bilaterally. Heart: Regular rate and rhythm. Breasts: s/p left mastectomy and recent mastectomy incision scar healing well. Abdomen: Soft. Nontender. Nondistended. Musculoskeletal: No edema. Neuro: No gross focal deficits. Skin: No rashes noted Lymphatics: Left axillary lump likely to be seroma/hematoma from recent surgery. RADIOLOGY/LABORATORY DATA: see HPI ASSESSMENT AND PLAN: 77 year old woman with Metastatic breast cancer s/p chemotherapy with ddAC followed by Taxol x4 cycles, s/p left mastectomy and axillary node dissection on 06/22/17. She had multiple lung metastases. She had good partial response to systemic therapy. Mastectomy and axillary node dissection showed only small residual disease. As she had multiple lung metastases, there is no role of post-mastectomy radiation treatment at this point. She has adequate local therapy with mastectomy and axillary node dissection. She will continue her breast cancer care with Dr. Burkett and I will see her as needed. Signed by: Myke Denise MD cc: Tayla Espinal DO ([facility]) [address] [place] [address] Ky Burkett DO [address] [facility] [id number] CNOV Observed: 07/12/2017 Status: COMPLETED Source: [place] 9:30 AM [facility] REPOSITORY Office Visit (RADTWS) BRUCEANNA ([id number]) 1940 F Date Time Provider Department 07/12/17 9:30 AM MYKE DENISE During your visit today, we recorded the following information about you: Temperature Pulse Respiration Blood pressure 98.5 degrees 67/minute 20/minute 123/58 Weight 66 kg Radha Ham RN, RN 07/12/2017 10:12 AM Signed Radiation Therapy - Nursing Note (Consult) PATIENT NAME: Anna Barrera PATIENT July 12, 2017 [facility] FACILITY/LOCATION: [place] Chief Complaint: consult Reason for visit: Consult. Referring physician: Internal provider Dr. Burkett Subjective Data: no c/o Additional Data Do you want to see a Induction Furnace Operator? No Are you interested in information about fertility? No Sexual Activity: Female: postmenopausal Stress Scale: On a scale of 0 to 10, what number best describes how much distress you have experienced in the past week?(0 being no distress and 10 being extreme distress) 4 Social work notified: Pt denied need to see older adult social work specialist at this time. Radiation therapy teaching initiated. [facility] external beam radiation therapy handout given. Department phone numbers given ANDamp; patient encouraged to verbalize questions. SIGNED by: JOSÉ MIGUEL Regalado MD 07/12/2017 1:12 PM Signed Radiation Oncology - New Patient/Consult Note PATIENT NAME: Anna Barrera PATIENT REQUESTING PROVIDER: Ky Burkett DO DIAGNOSIS: Metastatic breast cancer s/p chemotherapy with ddAC followed by Taxol x4 cycles, s/p left mastectomy and axillary node dissection on 06/22/17. HPI: 77 year old female who presents with above diagnosis, for an opinion regarding the role of radiation therapy in the management of the patient's disease. Final recommendations will be communicated back to the requesting physician by way of the shared medical record, or letter to requesting physician via [place] mail. 77 year old woman who presented with uncontrolled bleeding from the large left breast tumor in December,. The bleeding was controlled with Gelfoam packing. CT chest on 01/10/17 showed a 6.2 cm x 7.3 cm x 7.7 cm inhomogeneous vascular mass involving the majority of the left breast along the medial aspect. There is diffuse overlying skin thickening. There are small left axillary lymph nodes. Multiple nodules are seen in the right lower lobe. The largest measures 2.6 cm x 1.5 cm. Core biopsy of the left breast lesion on 01/17/17 showed poorly differentiated ductal carcinoma. It's ER positive (38%, weak to moderate), MD negative (0%) and Her2/nicko 0. She had staging CT chest/abdomen/pelvis and brain and bone scan in January. She has multiple bilateral lung metastases and indeterminate low-density lesion in the superior aspect of the spleen. She had chemotherapy with ddAC followed by Taxol x4 cycles. Restaging CT chest on 05/29/17 showed interval further decrease in size of right lower lobe pulmonary nodule and Interval decrease in size of left breast mass and significant decrease in fluid collection/necrosis.She underwent left MRM and axillary node dissection on 06/22/17. Pathology showed invasive poorly differentiated carcinoma, basaloid carcinoma, measuring 0.5 x 0.3 cm with negative surgical margin. The closest margin was 2 cm from the deep margin. It's a grade 2 tumor without LVI. There was no skin or chest wall involvement. All eleven axillary nodes were negative for metastasis. There were changes consistent with treatment effect in breast and lymph nodes. ALLERGIES Allergen Reactions - Alcohol, Unspecified Intolerance Recovering alcoholic - Tetracycline Other: See Comments Thrush in mouth PAST MEDICAL HISTORY Diagnosis Date - Alcohol abuse, in remission - Anxiety - Atrial fibrillation (HCC) - Hypertension - Hypothyroid Prior radiation therapy, collagen vascular disease, or inflammatory bowel disease: Possible I-131 tx 30 years ago. status: Post-menopausal. PAST SURGICAL HISTORY Procedure Laterality Date - INGUINAL HERNIA REPAIR HX Right - TONSILLECTOMY HX Adenoidectomy FAMILY HISTORY Problem Relation Age of Onset - ovarian cyst [OTHER] Mother - small cell lung cancer [OTHER] Sister - pancreatic cancer [OTHER] Maternal Grandmother - Stroke Maternal Grandfather - Thyroid Sister Social History Marital status: Single Spouse name: Years of education: Number of children: Social History Main Topics Smoking status: Former Smoker Packs/day: 0.50 Years: 3.00 Types: Cigarettes Quit date: 06/19/1977 Smokeless status: Never Used Alcohol use: No Comment: alcoholic- dry since Drug use: No COMPLETE REVIEW OF SYSTEMS: GENERAL: 15 pounds of weight loss since January. HEENT: Negative for sudden vision or hearing changes. NECK: Negative for masses in the neck. RESPIRATORY: Negative for cough or shortness of breath. CARDIAC: Negative for chest pain, palpitations, murmurs, or syncopal episodes. GI: Negative for nausea, vomiting, diarrhea, constipation, blood per rectum, or melena. : Negative for dysuria, hematuria, urgency, frequency or incontinence. MUSCULOSKELETAL: Limitation of the left arm movement after surgery but it's improving. NEURO: bilateral toes numbness. HEMATOLOGIC: easy bruising. SKIN: Negative for rashes or other skin changes. PHYSICAL EXAM: VS: BP 123/58 Pulse 67 Temp 36.9 ?C (98.5 ?F) Resp 20 Wt 66 kg (145 lb 8 oz) SpO2 98% BMI 25.57 kg/m2 KPS: 90 General Appearance: Alert and oriented. No acute distress. HEENT: NCAT. Sclera anicteric. EOMI. Neck: Normal ROM. Chest: No respiratory distress. Lungs clear to auscultation bilaterally. Heart: Regular rate and rhythm. Breasts: s/p left mastectomy and recent mastectomy incision scar healing well. Abdomen: Soft. Nontender. Nondistended. Musculoskeletal: No edema. Neuro: No gross focal deficits. Skin: No rashes noted Lymphatics: Left axillary lump likely to be seroma/hematoma from recent surgery. RADIOLOGY/LABORATORY DATA: see HPI ASSESSMENT AND PLAN: 77 year old woman with Metastatic breast cancer s/p chemotherapy with ddAC followed by Taxol x4 cycles, s/p left mastectomy and axillary node dissection on 06/22/17. She had multiple lung metastases. She had good partial response to systemic therapy. Mastectomy and axillary node dissection showed only small residual disease. As she had multiple lung metastases, there is no role of post-mastectomy radiation treatment at this point. She has adequate local therapy with mastectomy and axillary node dissection. She will continue her breast cancer care with Dr. Burkett and I will see her as needed. Signed by: Myke Denise MD cc: Tayla Espinal DO ([facility]) [address] [place] [address] Ky Burkett DO [address] [id number] Referring Provider: KY BURKETT [[id number]] Allergies As of Date: 07/12/2017 Noted Allergy Reaction ALCOHOL, UNSPECIFIED 01/31/2017 5 - Intolerance Comments: Recovering alcoholic TETRACYCLINE 01/31/2017 14 - Other: See Comments Comments: Thrush in mouth Date Reviewed: 07/12/2017 Reviewed by: Radha (Rn) JOSÉ MIGUEL Ham - Fully Assessed Reason for Visit: Consult [502] Primary Visit Diagnosis:Malignant neoplasm of overlapping sites of left breast in female, estrogen receptor positive (HCC) [C50.812, Z17.0] Other Visit Diagnosis: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 (HCC) [C78.01] Prescriptions as of 07/12/2017 Sig: TRIAMCINOLONE ACETONIDE 0.025* Apply 1 application to affect* LEVOTHYROXINE 125 MCG TABLET 125 mcg once daily. ACETAMINOPHEN 325 MG TABLET Take 650 mg by mouth every 6 * DILTIAZEM SR 180 MG 24 HR CAP 180 mg once daily. METOPROLOL TARTRATE 50 MG TAB* 50 mg twice daily. LORAZEPAM 0.5 MG TABLET Take 0.25 mg by mouth three t* CLOTRIMAZOLE 1 % TOPICAL CREAM Apply 1 application to affect* MUCINEX COUGH ORAL Take 2 tablets by mouth twice* LEVOTHYROXINE 88 MCG TABLET ONDANSETRON HCL 8 MG TABLET Take 1 tablet by mouth every * Problem List As Of Date 07/12/2017 Noted Resolved Breast CA ([facility]) [C50.919] INVALID FOR*03/21/2017 More... Malignant neoplasm of overlapping sites of left*INVALID FOR* 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 (HC*INVALID FOR* Visit Notes: >> Radha (José Miguel) JOSÉ MIGUEL Ham MonJul 12, 2017 10:05 AM Status: Signed Radiation Therapy - Nursing Note (Consult) PATIENT NAME: Anna Barrera PATIENT July 12, 2017 [facility] FACILITY/LOCATION: [place] Chief Complaint: consult Reason for visit: Consult. Referring physician: Internal provider Dr. uBrkett Subjective Data: no c/o Additional Data Do you want to see a Induction Furnace Operator? No Are you interested in information about fertility? No Sexual Activity: Female: postmenopausal Stress Scale: On a scale of 0 to 10, what number best describes how much distress you have experienced in the past week?(0 being no distress and 10 being extreme distress) 4 Social work notified: Pt denied need to see older adult social work specialist at this time. Radiation therapy teaching initiated. [facility] external beam radiation therapy handout given. Department phone numbers given AND patient encouraged to verbalize questions. SIGNED by: Radha Ham RN Encounter Status:Closed by MYKE DENISE MD on 07/12/17 BRITANYOVSVladimir Observed: 07/12/2017 Status: COMPLETED Source: [place] 9:10 AM [facility] REPOSITORY Visit (SP) Office ([facility]) ANNA BARRERA ([id number]) 1940 F Date Time Provider Department 07/12/17 9:10 AM KY BURKETT During your visit today, we recorded the following information about you: Temperature Pulse Blood pressure Weight 98.5 degrees 67/minute 123/58 66 kg Ky Burkett DO 07/12/2017 10:47 AM Signed Diagnosis: 1) Breast cancer. HPI: Patient is a 76-year-old female whom I initially saw in the hospital for consultation. She was admitted on 01/10/2017 for uncontrolled bleeding from a large breast tumor. A CT of the chest was performed in the emergency room. That study demonstrated a 6.2 x 7.3 x 7.7 cm inhomogeneously vascular mass involving the majority of the left breast along the medial aspect. There was diffuse thickening of the overlying skin observed. There was also evidence of increased markings in the lateral portion of the breast. There were small left axillary lymph nodes noted. Dimensions were not rendered. Significantly, multiple nodules were observed in the right lower lobe. The largest measured 2.6 x 1.5 cm. Increased markings were observed at the lung bases just above the bibasilar atelectasis and/or scarring seen. The mediastinum was observed to be normal as were the hilar regions. Multilevel degenerative changes were observed and thoracic spine. The bleeding was controlled with Gelfoam packing. Patient was seen by general surgery. The patient underwent an ultrasound guided biopsy of the left breast mass on 01/11/2017. 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 COMMENT Immunohistochemistry ([id number]) supports the above diagnosis. 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 Case is reviewed in consultation with Dr. Ibarra of [facility] (complete consultative report viewable in patient?s EMR). ER/MD/Zcx1oxy studies are being performed on sections of tumor and the results from this study will be reported separately ([id number]). RESULTS: ANTIBODY / CLONE RESULT E-Cad (ECH-6) positive, rare cells CK8 (10ipgzB64) positive, focal P63 (7JUL/4A4) negative Calponin-1 (QY718C) negative CD56 (123C3.D5) negative Chromo (LK2H10) negative Synapto (polyclonal) negative CK5-6 (D5 ANDamp; 1684) positive Ki-67 (30-9) positive, high P53 (DO-7) positive, high Vimentin (V9) positive TTF-1 (8G7G3/1) negative AE1-3 (AE1/AE3/PCK26) positive CD45 (RP2/18) negative MART-1 (A-103) negative CK7 (OV-TL12/30) positive CK20 (KS20.8) noncontributory MORPHOMETRIC ANALYSIS ER (clone 6F11) 17%, weak MD (clone 16/1E2) 0 Her-2Neu (clone CB11) 0-1+ The prognostic test for HER2 is performed on formalin-fixed paraffin embedded tissue. A 3+ (positive) staining pattern is defined as intense, homogeneous, complete, circumferential membranous staining in ANDgt;10% of contiguous tumor cells. A similar weak (2+) staining pattern is interpreted as equivocal. JENNA follow-up testing is recommended for all equivocal cases. Positivity/negativity for ER/MD is reported if ANDgt; or ANDlt; 1% of the tumor cells are immuno- reactive, respectively. The ASCO/CAP criteria is used for scoring. Reference: Journal of Clinical Oncology, 2013; 31:5769-5504 ANDamp; 2010; 16:8067-1515. Duration of fixation: 6 Hrs; Sample Adequate: Yes. These assays have not been validated on decalcified tissues. Results should be interpreted with caution given the likelihood of false negativity on decalcified specimens. These tests were developed and their performance characteristics determined by [facility]. They may not have been cleared or approved by the U.S. Food and Drug Administration. The FDA has determined that such clearance or approval is not necessary. 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 Positive for estrogen receptors (favorable prognostic indicator). Negative for progesterone receptors (unfavorable prognostic indicator). Negative for overexpression of BAG2fbw. Patient underwent an echocardiogram on 01/11/2017 as well. That study demonstrated normal left ventricular size and systolic function. The estimated ejection fraction was 65%. No regional wall motion abnormalities were noted. There was mild mitral valve prolapse. Trivial mitral valve insufficiency was noted. There was mild tricuspid valve insufficiency with mild focal aortic valve thickening. Right ventricular systolic pressure estimated to be 29 mmHg. The patient declined any further radiographic workup in the hospital until she had definitive proof of breast cancer via the biopsy. Previous therapy: 1) Neoadjuvant ddAC followed by Taxol x4 cycles. Presents for ongoing oncologic management. Interim history: Since last seen underwent left modified radical mastectomy with axillary lymph node dissection. 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 Changes consistent with treatment effect (presurgical neoadjuvant) therapy both in breast and in the lymph nodes. Multiple skin lesions, consistent with seborrheic keratosis. Eleven out of 11 lymph nodes negative for metastatic carcinoma. INVASIVE BREAST CANCER SUMMARY: Specimen - total breast (including nipple and skin). Procedure - total mastectomy (including nipple and skin). Lymph node sampling - axillary dissection Specimen integrity - single, intact specimen Specimen laterality - left Tumor site - lower inner quadrant Tumor size - 0.5 x 0.3 cm Tumor focality - single focus of invasive carcinoma Macroscopic and Microscopic extent of tumor: Skin - invasive carcinoma does not invade into the dermis or epidermis Nipple - ductal carcinoma does not involve the nipple epidermis. Skeletal muscle - no skeletal muscle present. Ductal carcinoma in situ (DCIS) - no ductal carcinoma in situ is present. Lobular carcinoma in situ (LCIS) - not identified Histologic type of invasive carcinoma - poorly differentiated carcinoma with basaloid features. Histologic Grade (Schneider grade): Glandular/tubular differentiation - score 3 Nuclear pleomorphism - score 3 Mitotic count - score 1 Overall grade - 2 (score of 7) Margins: Margins uninvolved by invasive carcinoma. The tumor is 2 cm away from the deep margin. Treatment effect - response to presurgical (neoadjuvant therapy) - In the breast - definite response to presurgical therapy in the invasive carcinoma. In the lymph node - definite response to presurgical therapy in the metastatic carcinoma. See comment. Lymph-Vascular invasion - not identified Dermal lymph-vascular invasion - not identified Lymph nodes: Number of sentinel lymph nodes examined - 0 Total number of lymph nodes examined (sentinel and nonsentinel) - 11 Number of lymph nodes with macrometastases, micrometastases and isolated tumor cells - 0 Distance metastasis - not applicable Additional pathologic findings: - Extensive area of necrosis, histiocytic reaction and hemorrhage (consistent with presurgical neoadjuvant chemotherapy related changes) - Skin lesions, seborrheic keratosis. - Fibrocystic changes with intraductal hyperplasia without atypia. - Microscopic hyalinized fibroadenoma (0.6 x 0.4 cm) - one lymph node with hemangioma (0.1 cm in greatest dimension). Ancillary studies - previously performed on section of tumor ([id number] / [id number]). ER - positive (38% weak to moderate) MD - negative (0%) Her2 nicko - negative (0) Her2 by dual JENNA - not performed Microcalcifications - not identified Clinical history - Please make reference to previous specimen ([id number]) left breast, core biopsy with diagnosis of poorly differentiated ductal carcinoma, basaloid type. PATHOLOGIC STAGE: pT1a(y) pN0 Mx She has no complaints today. On questioning, she admits to some what is a strange feeling in the toes bilaterally and if she brushes the skin over the distal fibula of her left lower extremity, she'll have some numbness that radiates into the top of the foot. Otherwise no other symptoms of neuropathy. She feels like she is gaining strength week by week and she is looking forward to getting back into a workout routine I would like to pursue some physical therapy. Her appetite is good she's had no musculoskeletal pain. Mastectomy is healing well. She has a little soreness in the upper pectoral region but no swelling or signs of infection. PMH, medications and allergies personally reviewed by me today. Any changes documented in appropriate section. ROS: Constitutional: No episode of fever, night sweats or shaking chills. Neuro: Denies AYALA, vertigo, dizziness and imbalance. HEENT: No recent change in voice or hearing. Resp: No cough, sputum production, wheezing or hemoptysis. No shortness of breath at rest or with exertion. CVS: Denies PND and orthopnea. GI: Denies dysgeusia. Denies symptoms of stomatitis. Denies dysphagia and odynophagia. Denies reflux, n/v, change in bowel habits and abdominal pain. : Denies dysuria or gross hematuria. No symptoms of bladder outlet obstruction. Endo: Denies hot flashes. Denies polyuria and polydipsia. Denies heat and cold intolerance. Musculoskeletal: See above. Derm: Denies rash. Denies jaundice and diffuse pruritis. Heme: Denies unexplained bruising. Psych: Normal mood. PHYSICAL EXAM: Vitals: There were no vitals taken for this visit. Well-appearing and in no acute distress. EYES: Sclerae are anicteric bilaterally. NECK: Supple. LYMPHATIC: There is no palpable cervical, supraclavicular or inguinal adenopathy. RESPIRATORY: Inspiratory breath sounds are of normal intensity in all murcia. CARDIOVASCULAR: Rhythm is regular. Normal intensity S1/S2. There is no gallop or murmur. BREAST: Left mastectomy site is healing very nicely with no sign of infection or fluid collection. There is a firm nontender spindle shaped mass in the left axilla most likely as a consequence of surgery. ABDOMEN: The abdomen is nondistended. No organomegaly. No tenderness. Extremities: Very mild swelling right ankle. SKIN: No jaundice or rash. No petechiae. NEUROLOGIC: milieu manager II-XII are grossly intact. No focal motor weakness. MUSCULOSKELETAL: No muscle wasting. ASSESSMENT/PLAN: (C50.812, Z17.0) Malignant neoplasm of overlapping sites of left breast in female, estrogen receptor positive (HCC) (primary encounter diagnosis) Assessment: -KPS is 90%. -Patient presented with a neglected breast cancer that was locally advanced and had uncontrollable bleeding. There was no time to undergo biopsy of the lung masses in the interest of getting her treatment started. -She tolerated chemotherapy very well overall. 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 -Reviewed pathology with her. 0.5 cm viable tumor. -Discussed her plan again today. She has an appointment with radiation oncology following our appointment today. Plan: -Plan repeat CT chest following radiation therapy if indicated. If measurable disease, then candidate for E2112 clinical trial. If no measurable disease, then letrozole with palbociclib reasonable choice. Total wwki-vy-perb time was ANDgt;15 minutes with greater than 10 minutes spent discussing the issues outlined above and/or coordinating care. DO Annamarie Lopez LPN, SHANNON 07/12/2017 9:48 AM Signed Est martha santillan recent lab results Annamarie Irizarry LPN Referring Provider: KY BURKETT [[id number]] Allergies As of Date: 07/12/2017 Noted Allergy Reaction ALCOHOL, UNSPECIFIED 01/31/2017 5 - Intolerance Comments: Recovering alcoholic TETRACYCLINE 01/31/2017 14 - Other: See Comments Comments: Thrush in mouth Date Reviewed: 07/12/2017 Reviewed by: Radha (Rn) JOSÉ MIGUEL Ham - Fully Assessed Reason for Visit: Established Patient [175] Primary Visit Diagnosis:Malignant neoplasm of overlapping sites of left breast in female, estrogen receptor positive (HCC) [C50.812, Z17.0] Other Visit Diagnosis: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 (HCC) [C78.01] Order(s):CT CHEST W IVCON [[id number]] Order #: [id number] FUTURE iv contrast (radiology procedure)CT Chest W -Inject, intravenously, once for 1 dose.No IV access, insert saline lock prior to the beginning of sedation, infusion, injection of imaging exam. Discontinue saline lock post exam. If Pt. has a central line or IVAD, may access for administration according to line specific nursing protocol. Once exam is complete flush line and de- access according to line specific nursing protocol in the CT contrast administration guidelines link.Disp: 1 EachRfl: 0 Follow-up and Disposition History Recorded Prescriptions as of 07/12/2017 Sig: TRIAMCINOLONE ACETONIDE 0.025* Apply 1 application to affect* LEVOTHYROXINE 125 MCG TABLET 125 mcg once daily. ACETAMINOPHEN 325 MG TABLET Take 650 mg by mouth every 6 * DILTIAZEM SR 180 MG 24 HR CAP 180 mg once daily. METOPROLOL TARTRATE 50 MG TAB* 50 mg twice daily. LORAZEPAM 0.5 MG TABLET Take 0.25 mg by mouth three t* IV CONTRAST (RADIOLOGY PROCED* CT Chest W -Inject, intraveno* CLOTRIMAZOLE 1 % TOPICAL CREAM Apply 1 application to affect* MUCINEX COUGH ORAL Take 2 tablets by mouth twice* LEVOTHYROXINE 88 MCG TABLET ONDANSETRON HCL 8 MG TABLET Take 1 tablet by mouth every * Medication notes this encounter TRIAMCINOLONE ACETONIDE 0.025 % TOPICAL CREAM >> Annamarie Irizarry LPN, LPN 07/12/2017 9:15 AM >> ANNAMARIE IRIZARRY MonJul 12, 2017 9:15 AM resumed LEVOTHYROXINE 88 MCG TABLET >> Annamarie Irizarry LPN, PRESCHOOL ASSISTANT TEACHER 07/12/2017 9:14 AM >> ANNAMARIE IRIZARRY MonJul 12, 2017 9:14 AM discontinued ONDANSETRON HCL 8 MG TABLET >> Annamarie Irizarry, PRESCHOOL ASSISTANT TEACHER, PRESCHOOL ASSISTANT TEACHER 07/12/2017 9:15 AM >> ANNAMARIE IRIZARRY MonJul 12, 2017 9:15 AM Not using Problem List As Of Date 07/12/2017 Noted Resolved Breast CA (HCC) [C50.919] INVALID FOR*03/21/2017 More... Malignant neoplasm of overlapping sites of left*INVALID FOR* 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 (HC*INVALID FOR* Visit Notes: >> Annamarie Lim (Parer) Edie PRESCHOOL ASSISTANT TEACHER MonJul 12, 2017 9:15 AM Status: Signed Est ptmartha recent lab results Annamarie Irizarry LPN Encounter Status:Closed by KY BURKETT DO on 07/12/17 PROGRESS Observed: 07/12/2017 Status: COMPLETED Source: [place] 9:02 AM [facility] REPOSITORY O ID: [id number] Author: Ky Burkett Service: (none) Author Type: Physician Type: Progress Notes Filed: 07/12/2017 10:47 AM Note Text: Diagnosis: 1) Breast cancer. HPI: Patient is a 76-year-old female whom I initially saw in the hospital for consultation. She was admitted on 01/10/2017 for uncontrolled bleeding from a large breast tumor. A CT of the chest was performed in the emergency room. That study demonstrated a 6.2 x 7.3 x 7.7 cm inhomogeneously vascular mass involving the majority of the left breast along the medial aspect. There was diffuse thickening of the overlying skin observed. There was also evidence of increased markings in the lateral portion of the breast. There were small left axillary lymph nodes noted. Dimensions were not rendered. Significantly, multiple nodules were observed in the right lower lobe. The largest measured 2.6 x 1.5 cm. Increased markings were observed at the lung bases just above the bibasilar atelectasis and/or scarring seen. The mediastinum was observed to be normal as were the hilar regions. Multilevel degenerative changes were observed and thoracic spine. The bleeding was controlled with Gelfoam packing. Patient was seen by general surgery. The patient underwent an ultrasound guided biopsy of the left breast mass on 01/11/2017. 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 COMMENT Immunohistochemistry ([id number]) supports the above diagnosis. 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 Case is reviewed in consultation with Dr. Ibarra of [facility] (complete consultative report viewable in patient?s EMR). ER/MD/Vha6hqr studies are being performed on sections of tumor and the results from this study will be reported separately ([id number]). RESULTS: ANTIBODY / CLONE RESULT E-Cad (ECH-6) positive, rare cells CK8 (88jchgS36) positive, focal P63 (7JUL/4A4) negative Calponin-1 (YE012H) negative CD56 (123C3.D5) negative Chromo (LK2H10) negative Synapto (polyclonal) negative CK5-6 (D5 AND 1684) positive Ki-67 (30-9) positive, high P53 (DO-7) positive, high Vimentin (V9) positive TTF-1 (8G7G3/1) negative AE1-3 (AE1/AE3/PCK26) positive CD45 (RP2/18) negative MART-1 (A-103) negative CK7 (OV-TL12/30) positive CK20 (KS20.8) noncontributory MORPHOMETRIC ANALYSIS ER (clone 6F11) 17%, weak MD (clone 16/1E2) 0 Her-2Neu (clone CB11) 0-1+ The prognostic test for HER2 is performed on formalin-fixed paraffin embedded tissue. A 3+ (positive) staining pattern is defined as intense, homogeneous, complete, circumferential membranous staining in >10% of contiguous tumor cells. A similar weak (2+) staining pattern is interpreted as equivocal. JENNA follow-up testing is recommended for all equivocal cases. Positivity/negativity for ER/MD is reported if > or < 1% of the tumor cells are immuno- reactive, respectively. The ASCO/CAP criteria is used for scoring. Reference: Journal of Clinical Oncology, 2013; 31:5365-1764 AND 2010; 16:8472-7080. Duration of fixation: 6 Hrs; Sample Adequate: Yes. These assays have not been validated on decalcified tissues. Results should be interpreted with caution given the likelihood of false negativity on decalcified specimens. These tests were developed and their performance characteristics determined by [facility]. They may not have been cleared or approved by the U.S. Food and Drug Administration. The FDA has determined that such clearance or approval is not necessary. 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 Positive for estrogen receptors (favorable prognostic indicator). Negative for progesterone receptors (unfavorable prognostic indicator). Negative for overexpression of EOE9qnp. Patient underwent an echocardiogram on 01/11/2017 as well. That study demonstrated normal left ventricular size and systolic function. The estimated ejection fraction was 65%. No regional wall motion abnormalities were noted. There was mild mitral valve prolapse. Trivial mitral valve insufficiency was noted. There was mild tricuspid valve insufficiency with mild focal aortic valve thickening. Right ventricular systolic pressure estimated to be 29 mmHg. The patient declined any further radiographic workup in the hospital until she had definitive proof of breast cancer via the biopsy. Previous therapy: 1) Neoadjuvant ddAC followed by Taxol x4 cycles. Presents for ongoing oncologic management. Interim history: Since last seen underwent left modified radical mastectomy with axillary lymph node dissection. 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 Changes consistent with treatment effect (presurgical neoadjuvant) therapy both in breast and in the lymph nodes. Multiple skin lesions, consistent with seborrheic keratosis. Eleven out of 11 lymph nodes negative for metastatic carcinoma. INVASIVE BREAST CANCER SUMMARY: Specimen - total breast (including nipple and skin). Procedure - total mastectomy (including nipple and skin). Lymph node sampling - axillary dissection Specimen integrity - single, intact specimen Specimen laterality - left Tumor site - lower inner quadrant Tumor size - 0.5 x 0.3 cm Tumor focality - single focus of invasive carcinoma Macroscopic and Microscopic extent of tumor: Skin - invasive carcinoma does not invade into the dermis or epidermis Nipple - ductal carcinoma does not involve the nipple epidermis. Skeletal muscle - no skeletal muscle present. Ductal carcinoma in situ (DCIS) - no ductal carcinoma in situ is present. Lobular carcinoma in situ (LCIS) - not identified Histologic type of invasive carcinoma - poorly differentiated carcinoma with basaloid features. Histologic Grade (Elena grade): Glandular/tubular differentiation - score 3 Nuclear pleomorphism - score 3 Mitotic count - score 1 Overall grade - 2 (score of 7) Margins: Margins uninvolved by invasive carcinoma. The tumor is 2 cm away from the deep margin. Treatment effect - response to presurgical (neoadjuvant therapy) - In the breast - definite response to presurgical therapy in the invasive carcinoma. In the lymph node - definite response to presurgical therapy in the metastatic carcinoma. See comment. Lymph-Vascular invasion - not identified Dermal lymph-vascular invasion - not identified Lymph nodes: Number of sentinel lymph nodes examined - 0 Total number of lymph nodes examined (sentinel and nonsentinel) - 11 Number of lymph nodes with macrometastases, micrometastases and isolated tumor cells - 0 Distance metastasis - not applicable Additional pathologic findings: - Extensive area of necrosis, histiocytic reaction and hemorrhage (consistent with presurgical neoadjuvant chemotherapy related changes) - Skin lesions, seborrheic keratosis. - Fibrocystic changes with intraductal hyperplasia without atypia. - Microscopic hyalinized fibroadenoma (0.6 x 0.4 cm) - one lymph node with hemangioma (0.1 cm in greatest dimension). Ancillary studies - previously performed on section of tumor ([id number] / [id number]). 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 PATHOLOGIC STAGE: pT1a(y) pN0 Mx She has no complaints today. On questioning, she admits to some what is a strange feeling in the toes bilaterally and if she brushes the skin over the distal fibula of her left lower extremity, she'll have some numbness that radiates into the top of the foot. Otherwise no other symptoms of neuropathy. She feels like she is gaining strength week by week and she is looking forward to getting back into a workout routine I would like to pursue some physical therapy. Her appetite is good she's had no musculoskeletal pain. Mastectomy is healing well. She has a little soreness in the upper pectoral region but no swelling or signs of infection. PMH, medications and allergies personally reviewed by me today. Any changes documented in appropriate section. ROS: Constitutional: No episode of fever, night sweats or shaking chills. Neuro: Denies AYALA, vertigo, dizziness and imbalance. HEENT: No recent change in voice or hearing. Resp: No cough, sputum production, wheezing or hemoptysis. No shortness of breath at rest or with exertion. CVS: Denies PND and orthopnea. GI: Denies dysgeusia. Denies symptoms of stomatitis. Denies dysphagia and odynophagia. Denies reflux, n/v, change in bowel habits and abdominal pain. : Denies dysuria or gross hematuria. No symptoms of bladder outlet obstruction. Endo: Denies hot flashes. Denies polyuria and polydipsia. Denies heat and cold intolerance. Musculoskeletal: See above. Derm: Denies rash. Denies jaundice and diffuse pruritis. Heme: Denies unexplained bruising. Psych: Normal mood. PHYSICAL EXAM: Vitals: There were no vitals taken for this visit. Well-appearing and in no acute distress. EYES: Sclerae are anicteric bilaterally. NECK: Supple. LYMPHATIC: There is no palpable cervical, supraclavicular or inguinal adenopathy. RESPIRATORY: Inspiratory breath sounds are of normal intensity in all murcia. CARDIOVASCULAR: Rhythm is regular. Normal intensity S1/S2. There is no gallop or murmur. BREAST: Left mastectomy site is healing very nicely with no sign of infection or fluid collection. There is a firm nontender spindle shaped mass in the left axilla most likely as a consequence of surgery. ABDOMEN: The abdomen is nondistended. No organomegaly. No tenderness. Extremities: Very mild swelling right ankle. SKIN: No jaundice or rash. No petechiae. NEUROLOGIC: milieu manager II-XII are grossly intact. No focal motor weakness. MUSCULOSKELETAL: No muscle wasting. ASSESSMENT/PLAN: (C50.812, Z17.0) Malignant neoplasm of overlapping sites of left breast in female, estrogen receptor positive (HCC) (primary encounter diagnosis) Assessment: -KPS is 90%. -Patient presented with a neglected breast cancer that was locally advanced and had uncontrollable bleeding. There was no time to undergo biopsy of the lung masses in the interest of getting her treatment started. -She tolerated chemotherapy very well overall. 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 -Reviewed pathology with her. 0.5 cm viable tumor. -Discussed her plan again today. She has an appointment with radiation oncology following our appointment today. Plan: -Plan repeat CT chest following radiation therapy if indicated. If measurable disease, then candidate for E2112 clinical trial. If no measurable disease, then letrozole with palbociclib reasonable choice. Total wikm-xf-rooz time was >15 minutes with greater than 10 minutes spent discussing the issues outlined above and/or coordinating care. Ky Burkett, ALLERGIES ALLERGIES DATE TYPE / NAME / CODE REACTION SEVERITY SOURCE CODE 05/29/2018 Drug alcohol/[id number] Unknown Unknown [place] Allergy/41 (RXNORM) [facility] [id number]([facility] [place]) Repository 05/29/2018 Drug tetracycline/F0060 PT UNSURE Unknown [place] Allergy/41 07764(RXNORM) [facility] [id number]([facility] [place]) Repository 05/29/2018 Drug promethazine/F0060 Other Unknown [place] Allergy/41 80424(RXNORM) [facility] [id number]([facility]) Repository 05/29/2018 Drug shellfish Hives Unknown [place] Allergy/41 derived/[id number] [facility] [id number]( (RXNORM) [facility]) Repository 09/18/2017 DRUG PROMETHAZINE HCL Mental Chg [address] [id number]( Repository OMED CT) 01/31/2017 DRUG/62865 ALCOHOL, INTOLERANCE [facility] 1003([facility] UNSPECIFIED [facility] [place]) Repository 01/31/2017 DRUG TETRACYCLINE OTHER: SEE C [address] [id number]([facility] OMED CT) ENCOUNTERS ENCOUNTERS ADMIT/DISCHARGE ACCOUNT ADMITTING ENCOUNTER LOCATION SOURCE NUMBER CLASS 07/05/2018 [id number] Ambulatory [facility] ing:PT Repository 06/27/2018/06/28/19 [id number] Ambulatory [place] [facility] Repository 06/18/2018 [id number] Ambulatory [facility] ing:ONC Repository 06/13/2018/06/14/20 [id number] Ambulatory [place] 18 [facility] [place] Repository 06/06/2018 [id number] Ambulatory [facility] ing:MTRAD Repository 06/06/20182031 Ambulatory Building:[facility] Practices Repository 05/30/2018/05/31/20 [id number] [facility]ulatory [facility] [place] Repository 05/30/2018/05/31/20 [id number] Ambulatory [facility] [place] Repository 05/29/2018/05/29/20 [id number] Emergency [address] ing:ED Repository 05/24/2018 [id number] Ambulatory [facility] ing:HPRAD Repository 05/22/2018/05/25/20 [id number] Ambulatory [facility] [place] Repository 05/17/2018/05/18/20 [id number] [facility]ulatory [facility] [place] Repository 05/17/2018/05/17/20 [id number] Ambulatory [facility] [place] Repository 05/15/2018/05/15/20 [id number] [facility]ulatory [facility] [place] Repository 05/15/2018/05/15/20 [id number] [facility]ulatory [facility] [place] Repository 05/15/2018/05/17/20 [id number] [facility]ulatory [facility] [place] Repository 04/18/2018/04/18/20 [id number] [facility]ulatory [facility] [place] Repository 04/17/2018/04/18/20 [id number] Ambulatory [facility] [place] Repository 04/16/2018/04/16/20 [id number] Ambulatory [facility] [place] Repository 04/16/2018/04/17/20 [id number] Ambulatory [facility] [place] Repository 03/20/2018/03/21/20 [id number] [facility]ulatory [facility] [place] Repository 02/20/2018/02/21/20 [id number] Ambulatory [facility] [place] Repository 02/20/2018/02/22/20 [id number] Ambulatory [facility] [place] Repository 02/15/2018/02/17/20 [id number] [facility]ulatory [facility] [place] Repository 02/12/2018/02/16/20 [id number] Ambulatory [facility] [place] Repository 01/22/2018/01/24/20 [id number] Ambulatory [place] [facility] [place] Repository 01/04/2018/01/05/20 [id number] Ambulatory [place] [facility] [place] Repository 01/04/2018/01/05/20 [id number] Ambulatory [address] [place] Repository 12/25/2017/12/27/19 [id number] Ambulatory [address] [place] Repository 12/04/2017/12/06/19 [id number] Ambulatory [address] [place] Repository 11/29/2017/11/30/19 [id number] Ambulatory [address] [place] Repository 11/29/2017/11/30/19 [id number] Ambulatory [address] [place] Repository 11/28/2017/11/29/19 [id number] Ambulatory BMSBuilding:B [place] [facility] Repository 11/27/2017/11/28/19 [id number] Ambulatory [address] Repository 11/27/2017/11/28/19 [id number] Ambulatory [address] Repository 11/27/2017/11/29/19 [id number] Ambulatory [address] Repository 11/27/2017/11/29/19 [id number] Ambulatory [address] Repository 11/07/2017/11/08/19 [id number] Ambulatory B[facility]Building:B [place] [facility] Repository 10/31/2017/11/01/19 [id number] Ambulatory BMSBuilding:B [place] 18 [place] Repository 10/30/2017/11/01/19 [id number] Ambulatory [address] Repository 10/25/2017/10/26/19 [id number] [place] [facility] Rep[facility] 10/05/2017/10/06/19 [id number] Ambulatory [address] Repository 10/05/2017/10/06/19 [id number] Ambulatory [address] Repository 10/02/2017/10/10/19 [id number] Ambulatory [address] Repository 09/22/2017/10/03/19 [id number] Ambulatory [address] [place] Repository 09/18/2017/10/03/19 [id number] Ambulatory [address] [address] Repository 09/08/2017/09/11/19 [id number] Juan M, Ambulatory Ramiro Bermudez [facility] ing:[id number]: Repository [id number]: 1 09/08/2017 [id number] Juan M, Ambulatory BMSBuilding:Yasmani Bermudez [facility] Repository 09/08/2017 [id number] Juan M, Ambulatory BMSBuilding:Yasmani Bermudez [facility] Repository 09/08/2017 [id number] Juan M, Ambulatory BMSBuilding:Yasmani Bermudez [facility] Repository 09/08/2017/09/09/19 [id number] Ambulatory [address] Repository 09/04/2017/09/06/19 [id number] Ambulatory [address] Repository 08/25/2017/08/29/19 [id number] Ambulatory [address] Repository 08/23/2017/08/24/19 [id number] Ambulatory BMSBuilding:Yasmani Tony [facility] Repository 08/14/2017/08/14/19 [id number] RONDA, Ambulatory [address] Repository 08/14/2017/08/14/19 [id number] Ambulatory [address] Repository 08/14/2017/08/14/19 [id number] RONDA, Ambulatory [address] Repository 08/14/2017/10/07/19 [id number] RONDA, Ambulatory [address] Repository 08/14/2017/08/14/19 [id number] RONDA, Ambulatory [address] Repository 08/02/2017/09/16/19 [id number] Ambulatory [address] Repository 08/02/2017/08/02/19 [id number] Ambulatory [address] Repository 07/31/2017 [id number] Ambulatory [facility] ing:MRI Repository 07/31/2017/08/02/19 [id number] Ambulatory [address] Repository 07/26/2017/07/26/19 [id number] Ambulatory [address] Repository 07/26/2017/07/27/19 [id number] Ambulatory [address] Repository 07/15/2017/07/15/19 [id number] [place] [facility] ing:ED Repository 07/12/2017/07/12/19 [id number] Ambulatory BMSBuilding:B Ramiro [facility] Repository 07/12/2017/07/14/19 [id number] Ambulatory [address] Repository 07/12/2017/07/13/19 [id number] Ambulatory [address] Repository PAYERS PAYERS ENCOUNTER GUARANTOR PAYER SUBSCRIBER SOURCE 07/05/2018 ANNA S Primary ANNA Garnica [place] [id number] Insurance:ANTHEMPolic MELENBACKERDOB: Community ARLYN DRUNIT y Number: [id number] [id number] Repository 644[address]Kjc: (330) Date:1586-37-42RC [phone] () [id number] [place] [address] 25069KN: 07/05/2018 Secondary NOT GIVENUNK Ramiro Insurance:SELF PAY [facility] Number: Effective Repository Date:2018-06-25 06/18/2018 ANNA Garnica Primary ANNA S [place] [id number] Insurance:ANTHEMPolic MELENBACKERDOB: Community ARLYN DRUNIT y Number: [id number] [id number] Repository 517[address]Kxo: (330) Date:2538-08-52MS [phone] () 338871FZIMAJN, [place] [address]GG: 06/18/2018 Secondary NOT GIVENUNK [place] Insurance:SELF PAY [facility] Number: Effective Repository Date:2018-06-15 06/06/2018 ANNA Garnica Primary ANNA S Ramiro [id number] Insurance:ANTHEMPolic MELENBACKERDOB: Community ARLYN DRUNIT y Number: [id number] [id number] Repository 035[address]Fsn: (330) Date:3879-99-53ZH [phone] () [id number] [place] [address] 40455XI: 06/06/2018 Secondary NOT GIVENUNK Ramiro Insurance:SELF PAY [facility] Number: Effective Repository Date:2018-06-06 06/06/2018 Anna S Primary Anna S OHIP Practices MelenbackerDOB: Insurance:Scissors MelenbackerDOB: Repository [id number] /BSPolicy Number: [id number] [address] [id number] [address], [place] Date:2994-11-26Govq [address], [address]Nsu: (330) Name:[address] [place] [address]Czs: [phone] () [id number] [place] [address] [phone]: [phone] 05/29/2018 ANNA S Primary ANNA S [place] [id number] Insurance:ANTHEMPolic MELENBACKERDOB: Community ARLYN DRUNIT y Number: [id number] [id number] Repository 379[address]Fgp: (330) Date:9134-93-70HI [address][phone] () [id number] [place] [address] 91413LR: 05/29/2018 Secondary NOT GIVENUNK [place] Insurance:SELF PAY [facility] Number: Effective Repository Date:2018-05-29 05/24/2018 ANNA S Primary ANNA S Ramiro [id number] Insurance:ANTHEMPolic MELENBACKERDOB: Community ARLYN y Number: [id number] [id number] Repository [address]Obf: (330) Date:3390-09-62JD [phone] () [id number] [place] [address] 03171AO: 05/24/2018 Secondary NOT GIVENUNK Ramiro Insurance:SELF PAY [facility] Number: Effective Repository Date:2018-05-24 11/28/2017 ANNA S Primary ANNA S [place]ami[place] [id number] Insurance:ANTHEMPolic MELENBACKERDOB: Community ARLYN y Number: [id number] [id number] Repository 55[address]Bsj: (330) Date:3503-01-19FT [phone] () 0233[address]WBSKPRC, [place] [address]DW: 11/28/2017 Secondary NOT GIVENUNK [place] Insurance:SELF PAY [facility] Number: Effective Repository Date:2017-11-16 11/07/2017 ANNA S Primary ANNA Garnica Ramiro [id number] Insurance:ANTHEMPolic MELENBACKERDOB: Community ARLYN DRUNIT y Number: [id number] [id number] Repository 317[address]Kto: (330) Date:2102-43-61RE [phone] () 859163NZNKIUK, [place] [address]QB: 11/07/2017 Secondary NOT GIVENUNK Ramiro Insurance:SELF PAY [facility] Number: Effective Repository Date:2017-11-07 10/31/2017 ANNA S Primary ANNA Garnica [place] [id number] Insurance:ANTHEMPolic MELENBACKERDOB: Community ARLYN DRUNIT y Number: [id number] [id number] Repository [address]57[address]Rxq: (330) Date:4141-48-60BW [phone] () 0635[address]FPWSEDH, [place] [address]IN: 10/31/2017 Secondary NOT GIVENUNK [place] Insurance:SELF PAY [facility] Number: Effective Repository Date:2017-10-31 10/25/2017 ANNA S Primary ANNA Garnica [place] [id number] Insurance:ANTHEMPolic MELENBACKERDOB: Community ARLYN y Number: [id number], [place] [id number] Repository 6[address]Esa: (330) Date:8489-33-50HT [phone] () 810417MRWHZZH, [place] [address]JA: 10/25/2017 Secondary NOT GIVENUNK [place] Insurance:SELF PAY [facility] Number: Effective Repository Date:2017-07-12 09/08/2017 ANNA Garnica Primary ANNA Garnica [place] [id number] Insurance:ANTHEMPolic MELENBACKERDOB: Community ARLYN DRUNIT y Number: [id number] [id number] Repository [address]Gyn: (330) Date:0616-49-35PL [phone] () 532[address]HEULQTW [place] [address]TQ: 09/08/2017 Secondary NOT GIVENUNK Ramiro Insurance:SELF PAY [facility] Number: Effective Repository Date:2017-09-08 09/08/2017 ANNA S Primary ANNA S [place] [id number] Insurance:ANTHEMPolic MELENBACKERDOB: Community ARLYN DRUNIT y Number: [id number] [id number] Repository 312[address]Qnz: (330) Date:4467-09-30WX [phone] () [id number], [place] [address]GT: 09/08/2017 Secondary NOT GIVENUNK [place]ami[place] Insurance:SELF PAY [facility] Number: Effective Repository Date:2017-09-08 09/08/2017 ANNA S Primary ANNA Garnica [place] [id number] Insurance:ANTHEMPolic MELENBACKERDOB: Community ARLYN DRUNIT y Number: [id number] [id number] Repository 27[address]Ryp: (330) Date:5703-27-77IW [phone] () 346482XGUPTCO, [place] [address]UR: 09/08/2017 Secondary NOT GIVENUNK Rami[place] Insurance:SELF PAY [facility] Number: Effective Repository Date:2017-09-08 09/08/2017 ANNA S Primary ANNA S [place] [id number] Insurance:ANTHEMPolic MELENBACKERDOB: Community ARLYN DRUNIT y Number: [id number] [id number] Repository [address]Kjk: (330) Date:2156-31-34IR [phone] () 703670JVZVNRGYESSY [place] [address]VW: 09/08/2017 Secondary NOT GIVENUNK [place] Insurance:SELF PAY [facility] Number: Effective Repository Date:2017-09-08 08/23/2017 ANNA S Primary ANNA S [place] [id number] Insurance:ANTHEMPolic MELENBACKERDOB: Community ARLYN y Number: [id number], [place] [id number] Repository [address]Eoz: (330) Date:3508-87-22AV [phone] () 728461QTEQYFR, [place] [address]QW: 08/23/2017 Secondary NOT GIVENUNK [place] Insurance:SELF PAY [facility] Number: Effective Repository Date:2017-07-12 07/31/2017 ANNA S Primary ANNA S [place] [id number] Insurance:ANTHEMPolic MELENBACKERDOB: Community ARLYN y Number: [id number], [place] [id number] Repository [address]Mhe: (330) Date:4512-44-24OD [phone] () 608511YLOQBEJYESSY SHELTON [address]YN: 07/31/2017 Secondary NOT GIVENUNK [place] Insurance:SELF PAY [facility] Number: Effective Repository Date:2017-07-31 07/15/2017 ANNA S Primary ANNA S [place] [id number] Insurance:ANTHEMPolic MELENBACKERDOB: Community RODRIGUEZ y Number: [id number] [id number] Repository SENIOR Date:5978-26-93[address] [place], [place] [address]14[address]QIWRUJI, [place] [address]Kbf: [phone]: () [phone] 07/15/2017 Secondary NOT GIVENUNK Ramiro Insurance:SELF PAY [facility] Number: Effective Repository Date:2017-07-15 07/12/2017 ANNA S Primary ANNA S [place] [id number] Insurance:ANTHEMPolic MELENBACKERDOB: [facility] Number: [id number] Hospital RDBROOKDA [id number] Repository SENIOR Date:4683-31-23SRW[place], [place] 531028MXJBFGP, [place] [address]Sxl: [phone]: () [phone] 07/12/2017 Secondary ANNA S [place] Insurance:MEDICARE A MELLUBNABACKERDOB: [facility] Number: [id number] Hospital [id number] Repository Date:2017-06-27 07/12/2017 Tertiary NOT GIVENUNK Ramiro Insurance:SELF PAY [facility] Number: Effective Repository Date:2017-06-27
== END 2018-05-29 13:45 | disposition home or self-care (01) ==
LOC: ED 13:14
PROVIDERS: Emergency Provider Emergency Medicine; Family Provider Internal Medicine; PCP Internal Medicine
DX: M25.572 Pain in left ankle and joints of left foot (principal); Z87.891 Personal history of nicotine dependence; I48.91 Unspecified atrial fibrillation
CPT/HCPCS: 99283

== ENCOUNTER → 2018-06-06 14:15 | Outpatient (CLI) | payer BC, SELFPAY ==
[2018-05-29 12:45] VITALS: BMI 27.6
--- NOTE | 2018-06-06 14:19 | RAD_ITS ---
STUDY: X-RAY - UNILATERAL RIBS ( LEFT ) WITH CHEST REASON FOR EXAM: Female, 77 years old. Left-sided chest pain, history of left mastectomy. TECHNIQUE - RIBS: 4 view(s) of the ribs. TECHNIQUE - CHEST: Single frontal view of the chest. The patient is mildly rotated to the left on that view. COMPARISON: None. FINDINGS - RIBS: There are deformities of the posterolateral left sixth-ninth ribs consistent with old healed fractures. There is suggestion of an inferior cortical defect of the posterior left fifth rib and some images that may also be the sequelae of old injury versus a destructive bone lesion. FINDINGS - CHEST: The lungs are clear and expanded. There is no demonstrated pleural abnormality. Normal size heart. Normal mediastinum and sabrina. Normal visualized pulmonary arteries. There is atherosclerotic calcification of the aortic arch bleed. There are multilevel degenerative changes of the visualized thoracic spine. Normal visualized right ribs. 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 Surgical clips noted in the soft tissues of the left lateral chest wall. There is no demonstrated abnormality of the visualized soft tissue structures of the upper abdomen. RAD/Ribs Uni Min 3V w/PA Chest IMPRESSION: RIBS: 1. Old healed fracture deformities of the posterolateral left 6-9 ribs. 2. Cortical defect of the posterior left fifth rib, possibly an additional site of old injury versus focal destructive lesion. If clinical suspicion warrants additional imaging, one might consider bone scan or PET CT scan. CHEST: No acute cardiopulmonary disease. Electronically Signed: Mumtaz Holley MD at 12:42 EST , Service support ,
== END ==
PROVIDERS: Family Provider Internal Medicine; PCP Internal Medicine; Referring Provider Internal Medicine; Visit Provider Internal Medicine
DX: R07.81 Pleurodynia (principal)
CPT/HCPCS: 71101

== ENCOUNTER → 2018-06-18 10:04 | Outpatient (CLI) | payer BC, SELFPAY ==
[2018-05-29 12:45] VITALS: BMI 27.6
--- NOTE | 2018-06-18 08:07 | PET_ITS ---
EXAMINATION: FDG PET CT INDICATIONS: A 77-year-old female with reported history of carcinoma of the breast presenting for restaging examination. COMPARISON EXAMINATION: CT of the abdomen and pelvis report dated 09/08/17. INDEX LESION SIZE SUV INTERPRETATION Right lower lateral hemithorax pulmonary parenchyma, right lower lobe 11.0 mm (frame 175) 1.9 Quantitative criteria for viable neoplasm are not fulfilled, sequential radiologic investigation recommended Left lobe hepatic parenchyma segment II 6.8 mm (frame 154) 3.2 ratio < 2.0 Quantitative criteria for viable neoplasm are not fulfilled, correlation with magnetic resonance imaging may be of benefit NON-INDEX LESION SIZE SUV INTERPRETATION Left lower lateral chest wall ninth-tenth ribs 2.9 Most consistent with trauma-fracture TECHNIQUE: Following the intravenous administration of 13.7 mCi of F-18 deoxyglucose via the right antecubital fossa, multiplanar image acquisitions of the neck, chest, abdomen and pelvis to level of mid thigh, obtained at one hour post radiopharmaceutical administration contemporaneously interpreted with the current CT of the neck, chest, abdomen and pelvis to level of mid thigh, dated 06/18/[address] of the abdomen and pelvis report dated 09/08/17 reveal: SERUM GLUCOSE LEVEL: 83 mg/dl. HEIGHT: 62 inches. WEIGHT: 154 lbs. FINDINGS: 1. A distinct nodular focus of increased glucose metabolism is demonstrated in the right lower lateral hemithorax pulmonary parenchyma, anterobasal segment of the right lower lobe generating a calculated maximum standard uptake value of 1.9. The maximal axial diameter of the corresponding parenchymal density, which appears juxtapositioned between the right lateral chest wall and hepatic parenchyma, is 11.0 mm (AP). 2. Facilitated FDG uptake is noted in the left lateral chest wall, left lower ninth-tenth ribs, linear in presentation defined in the horizontal plane. The calculated maximum standard uptake value is 2.9. 3. A small nodular focus of enhanced glucose distribution is demonstrated in the left lobe of the hepatic parenchyma (3.1) involving segment II generating a calculated maximum standard uptake value of 3.2 with a lesion to liver background ratio less than 2.0. The maximal axial diameter of the metabolic abnormality on review of CT of the abdomen dated 06/18/18 is approximately 6.8 mm (AP). 4. Normal physiologic distribution of the radiopharmaceutical is apparent in the splenic parenchyma, both renal units, bladder and visualized intestinal tract. There is uniform distribution of the radiopharmaceutical concentration defined in the visualized cerebellar hemispheres and cerebral cortical structures.? Diffuse intestinal tract activity is noted throughout all four quadrants of the abdominal-pelvic retroperitoneum, mesentery consistent with normal physiologic distribution of the radiopharmaceutical. Pertinent CT findings are as follows. CHEST: Atherosclerotic calcification is defined in the thoracic aorta without evidence of dilatation, aneurysm formation. Coronary arterial calcification is observed. The left breast appears surgically absent. Surgical clips are identified in the left axillary region. There are no parenchymal densities-nodules defined in the right-left hemithorax demonstrating discernible, quantitatively significant increased glucose metabolism. ABDOMEN AND PELVIS: Atherosclerotic calcification is defined in the abdominal aorta without evidence of dilatation, aneurysm formation. Pelvic arterial calcification is observed. Right-left inguinal soft tissue densities are non-glucose avid. Increased density defined in the right kidney demonstrates no evidence of facilitated glucose metabolism. SKELETAL: Degenerative changes defined in the cervical, thoracic and lumbar spine demonstrate no evidence for glucose hypermetabolism. There appears to be evidence of vertebral hemangioma formation noted at the level of the seventh thoracic vertebra. PET/PET/CT Tumor Base -Thigh Subs IMPRESSION: 1. Increased glucose metabolism identified in the right lower lateral hemithorax pulmonary parenchyma, right lower lobe does not fulfill quantitative criteria for viable neoplasm. (Lima et al, Annals of Internal Medicine, 138:724, 2003). 2. Metabolic and/or anatomic stability may be ensured in the right hemithorax pulmonary parenchymal abnormality with repeat FDG PET study and/or CT of the thorax in three months. (Xiu, Journal of Nuclear Medicine 45:88, P2004. Myra, Seminars in Thoracic and Cardiovascular Surgery 14:292, 2002). 3. Facilitated FDG uptake noted in the left lower lateral chest wall contiguous to the ninth-tenth ribs is most consistent with trauma-fracture. Plain film radiography correlation may be of benefit. 4. Enhanced uptake noted in the left lobe of the hepatic parenchyma involving segment II does not fulfill strict quantitative criteria for viable hepatic parenchymal neoplasm. (Eliane et al, Archives of Surgery, 133:510 1997). Correlation with magnetic resonance imaging utilizing Gd-[id number]-DTPA may be of benefit for further evaluation. (Hayes et al, J Nucl Med 51: 692, 2010). Electronic Signature Ceferino Ventura D.O. Electronically Signed: Ceferino Ventura DO at 22:36 EST Tel , Service support ,
== END ==
PROVIDERS: Family Provider Internal Medicine; PCP Internal Medicine; Visit Provider Internal Medicine
DX: C50.312 Malignant neoplasm of lower-inner quadrant of left female breast (principal); R07.81 Pleurodynia
CPT/HCPCS: 78815; A9552

== ENCOUNTER 2018-08-12 15:56 | Emergency (ER) | payer BC, SELFPAY ==
[2018-08-12 15:57] VITALS: BP 126/75; PULSE 90; RESP 18; TEMP 36.3; O2SAT 98; BMI 28.8
[2018-08-12 16:55] LABS: Bacteria 0 SEEN /hpf (None Seen); Mucous, Urine 0 SEEN /hpf (<or=2+); Red Blood Cells-Urine 0 SEEN /hpf (0-5); Squamous Epithelial Cells - UA 0 SEEN /hpf (5-10); White Blood Cells 0 SEEN /hpf (0-5)
--- NOTE | 2018-08-12 16:57 | ED.VISSUMM ---
- ER Visit Summary Date of Service: 08/12/18 Chief Complaint: Diarrhea History of Present Illness: The patient is a 78 F who presents with diarrhea that began yesterday. Patient states her stools have been loose and then became watery today. Patient denies any melena or hematochezia. Patient states this started after she was started on a calcium supplement and vitamin D2. Patient thinks it may be related to the new medication. Patient admits to some cramping abdominal pain today but states that has resolved now. Patient states it is over her lower abdomen. Patient denies any nausea or vomiting. Physical Examination: Vital signs are stable. Patient is afebrile. Patient is in no acute distress. Oral mucosa is pink and moist. Neck is supple. Trachea is midline. There is no JVD noted. Heart was regular rate and rhythm. Lungs are clear and equal bilateral. Abdomen is soft. Bowel sounds are normal. There is no tenderness. There is no guarding noted. Skin is warm dry. Cranial nerves II through XII are intact. There are no focal motor or sensory deficits noted. The remaining physical exam is within normal limits. Test Results: Urinalysis was obtained. There is no evidence of urinary tract infection. Patient had a recent CBC and metabolic profile done this week and does not want to have any more labs done at this time. Patient states they were normal. Emergency Department Course and Treatment: Patient was informed of the results. Patient had no further episodes of diarrhea here in the emergency department. Patient was instructed to follow-up with her primary care physician as scheduled. Patient understood and was agreeable with the plan. All questions were answered. Disposition: Discharge home Impression: Diarrhea This note was generated with [employer] dictation software. It may contain incorrect words, spelling, and punctuation that were not noted in review of the chart prior to signing ED Disposition - Plan for ED Patient: Disposition: Home or Assisted Living Diagnosis: Diarrhea Instructions: ED Diarrhea Viral Referrals: Tayla Espinal DO [Primary Care Provider] -
[2018-08-12 16:58] LABS: Color, Urine Yellow (Yellow); Glucose, Dipstick Normal (Normal); Ketone-Dipstick Negative (Negative); Leukocyte Esterase-Dipstick Negative /ul (Negative); Nitrite-Dipstick Negative (Negative); Occult Blood-Urine Negative /ul (Negative); Protein-Dipstick Negative (Negative); Urine Bilirubin Dipstick Negative (Negative); Urine Clarity Clear (Clear); Urine Urobilinogen Normal (Normal); Urine pH 6.5 (5.0 - 8.0)
[2018-08-12 18:16] VITALS: PULSE 78; RESP 16; TEMP 36.7; O2SAT 99
[2018-08-12 18:22] VITALS: BP 154/89; PULSE 89; RESP 16; O2SAT 95
== END 2018-08-12 18:22 | disposition home or self-care (01) ==
PROVIDERS: Emergency Provider Emergency Medicine; Family Provider Internal Medicine; PCP Internal Medicine; Referring Provider Internal Medicine Hematology & Oncology
DX: R19.7 Diarrhea, unspecified (principal); E03.9 Hypothyroidism, unspecified; K21.9 Gastro-esophageal reflux disease without esophagitis
CPT/HCPCS: 81001; 99282

== ENCOUNTER → 2018-09-07 10:06 | Outpatient (CLI) | payer BC, SELFPAY ==
[2018-08-12 15:57] VITALS: BMI 28.8
--- NOTE | 2018-09-07 10:11 | RAD_ITS ---
STUDY: X-RAY - LEFT KNEE REASON FOR EXAM: Pain. TECHNIQUE: 4 view(s) of the knee. COMPARISON: None. FINDINGS: There is osteopenia. Normal visualized distal femur. Normal visualized proximal tibia and fibula. Normal proximal tibiofibular articulation. Normal medial femorotibial compartment. Normal lateral femorotibial compartment. There is moderate joint space narrowing of the patellofemoral articulation. The soft tissue structures are unremarkable. RAD/Knee 4 or More Views IMPRESSION: Patellofemoral arthrosis. Osteopenia. Electronically Signed: Bernard Mora MD at 15:57 EDT Tel , Service support ,
== END ==
PROVIDERS: Family Provider Internal Medicine; PCP Internal Medicine; Referring Provider Nurse Practitioner; Visit Provider Nurse Practitioner
DX: M25.562 Pain in left knee (principal)
CPT/HCPCS: 73564

== ENCOUNTER 2018-10-04 10:30 | Outpatient (RCR) | payer BC, SELFPAY ==
--- NOTE | 2018-07-02 11:56 | HP.PTEVAL ---
Patient's Visit Information JORGE LUIS BARRERA is a 78 year old F referred to Physical Therapy by Tayla Espinal DO with a diagnosis of Left Ankle Sprain. Date of Evaluation: 07/02/18 Physical Therapist: Amelie Rodriguez DPT - Visit Plan Frequency: 2x /Week Duration: 4 Weeks Plan: Focus on LE and core s/s - Subjective Findings: Had Gamma knife in Jul 2016- worked and got rid of a spot on her brain- Had steriods due to weakness in her arms- October, December and February- then he took the situation to the tumor board and had the steriod again in the fall. 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 CTScan and PETScan. The day after Thanksgi she missed the step coming down and fell- the left knee hurt- 5 days later the left ankle started bothering her. It was really sore so she stopped exercise. Jun 04 bent over and felt a pain in the left side- saw PCP and had x-rays of the ankle. No fracture. Dr. Espinal ordered the PET Scan on the which showed an old fracture in the ribs. The PET scan was clear of cancer. Ankle- was on a walker and cane for awhile- so she is now off of them. The pain is located now along the medial malleolus- no pain that radiates to the knee or foot. She is happier in shoes and on carpet. Feels unstable and is afraid to use it. Worst: 5/10 Agg: being without shoes and being on it. Eases: sitting down Best: 0/10. Sleep: not disturbed. Describes the pain as achy and sharp/shooting if she is up on it. No N/T in the ankle. Has someone that comes 2x a week to help her shower and someone is also driving for her. Patient feels that she is 60% back to normal. - Objective Posture: FH, RS- increased guarding of the left side of her body. Gait: abnormal- toes turned out to the side with wide FLOR. Stairs: non recip with 2 HR and signficant UE A. HR/TR: able with UE A- mild discomfort. 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 Palpation: tender along lateral and medial malleolus. ROM: WFL in all planes. Strength: Ankle: 4/5 throughout Knee: 4+/5 Hip: 4-/5 - Goals Goal 1:: Patient will be I with HEP and progression Goal Time Frame: 4-6 Weeks Goal 2:: Patient will SLS for 4 seconds without LOB Goal Time Frame: 4-6 Weeks Goal 3:: Patient will demo 5/5 strength in knee and ankle where deficit Goal Time Frame: 4-6 Weeks Goal 4:: Patient will asc/desc 8 stairs recip with 1 HR Goal Time Frame: 4-6 Weeks - Rehabilitation Potential Physical Therapy Diagnosis: Patient presents with hypomobility- she has decreased strength and muscular endurance leading to abnormal gait and increased ability to perform ADL's. Rehabilitation Potential: Fair - Anticipated Interventions Patient/Client Instruction: Educate patient on: Benefits of Fitness Program Therapeutic Exercise to Include: Strength training, Endurance training, Balance training, Coordination, Agility training, Body mechanics, Postural training, Flexibilty training, Gait and locomotor training, Dynamic Lumbar Stabilization For the Purpose of:: To improve muscle performance and motor function Thank you for the opportunity to evaluate your patient. For Medicare and Medicare HMO plans, please review the plan of care and approve it. It will need to be FAXED BACK to us at [phone] for Medicare purposes. For Medicare only, by signing this I certify the plan of care. Please let me know if there are questions or concerns regarding this plan of care. Physician Signature: Date:
--- NOTE | 2018-08-14 09:38 | HP.PTDCSUM ---
HP - PT D/C Summary It has been my pleasure to treat JORGE LUIS BARRERA under orders from Tayla Espinal DO, for the diagnosis of Left Ankle Sprain for a total of 11 visit(s). Discharge Date: Please see the following information for a summary of their discharge status. - Subjective Subjective: Sometimes has discomfort that lasts for a few hours and then it goes away- happens about 1x a week. - Overall Improvement % Improvement: 75 - Objective Objective/Function: Posture: FH, RS- increased guarding of the left side of her body- continues due to healing rib fracture. Gait: abnormal- toes turned out to the side with wide FLOR- does not favor left ankle. Stairs: non recip with 2 HR but pulls with only the right. HR/TR: able with UE A-no pain. SLS: // bars can take hands off for 3 seconds. Palpation: not tender. ROM: WFL in all planes. Strength: Ankle: 5/5 throughout Knee: 4+/5 Hip: 4/5 - Goals Goal 1:: Patient will be I with HEP and progression Goal Progress: Goal Met Goal 2:: Patient will SLS for 4 seconds without LOB Goal Progress: Progressing Goal 3:: Patient will demo 5/5 strength in knee and ankle where deficit Goal Progress: Progressing Goal 4:: Patient will asc/desc 8 stairs recip with 1 HR Goal Progress: Progressing - Plan Plan: Patient to continue home exercise program through health and wellness- pt comfortable with program- d.c - D/C Information If there are questions or concerns regarding this patient's physical therapy, please feel free to call me at [phone]. Thank you for the referral of this patient. Sincerely, Amelie Rodriguez DPT
--- NOTE | 2018-08-16 14:55 | HP.OTEVAL_ITS ---
Patient's Visit Information JORGE LUIS BARRERA is a 78 year old F, referred to Occupational Therapy by Tayla Espinal DO, with a diagnosis of osteoarthritis. Date of Evaluation: 08/14/18 Occupational Therapist: Stephanie Schilling OTR/Lu, CHT - Subjective Subjective: pt having difficulty with FMS following her cancer tx. pt states she is having difficulty with writing, tie shoes, dishes out of cabinet, drop objects. pt states she is dropping her car keys. Pt would like to see what she can do about it or ad eq. she can get. - ADLs Dressing: Shoes Fasteners: Tie shoes, Snaps Kitchen: Chop with knife, Peel fruits & vegetables, Open jars, Open bottle caps Miscellaneous: Handle money (change), Hold change, Take things out of wallet, Open envelope, Write - ROM ROM Comments: pt demo all right UE ROM WNL. Left elbow ROM is limited due to prior injury. - Strength [employer] Power[employer] Supervisor: right 40# left 30# Lateral Pinch: right 8# left 10# Tripod Pinch: right 8# left 9# - Sensation Thumb: right 3.22 left 2.83 Index: right 2.83 left 2.83 Middle: right 2.83 left 2.83 Ring: right 2.83 left 2.83 Little: right 2.83 left 2.83 - Nine Hole Peg Right: 45.64 Left: 24.28 Comments: right demo a decline in FM speed/dex - In-Hand Manipulation Finger to Palm Translation: Normal - Right, Normal - Left Palm to Finger Translation: Mild - Right, Normal - Left Shift: Mild - Right, Normal - Left - Quick DASH-Disab of Arm,Shoulder& Hand Quick DASH Score: 68.1800 - Goals Goal:: pt will demo the ability to write name, numbers legible to ind. mtg her checking by d/c. pt will demo a reduction in 9 hole peg time by 5 sec. demo a increase in FMS Goal:: pt will demo understanding and initiate compensitory eric. with ADLs to increase safety with hot, sharp or breakable objects by d/c - Rehabilitation General Assessment: PT demo with a reducion in FMS that have made writing and coin manipulation more challenging. pt would benefit from skilled OT serices 1-2 x week for 4 weeks to ed. pt on compensitory eric, home modification and to ranulfo rubin pts FMS to jhonathan writing legibilty. Today pt was give handout on compensitory eric, and FMS activities. pt demo understanding and was agreeable to POC. Rehabilitation Potential: Good - Anticipated Interventions Anticipated Interventions: Fine Motor Coord/David, Home Program - Visit Plan Frequency: 1x/Week Duration: 3 Weeks TEXT: Thank you for the opportunity to evaluate your patient. For Medicare and Medicare HMO plans, please review the plan of care and approve it. It will need to be FAXED BACK to us at [phone] for Medicare purposes. Please let me know if there are questions or concerns regarding this plan of care. Physician Signature: Date:
--- NOTE | 2018-10-04 11:00 | HP.OTDCSUM ---
HP - OT D/C Summary It has been my pleasure to treat JORGE LUIS BARRERA under orders from Tayla Espinal DO, for the diagnosis of osteoarthritis for a total of 15 visit(s). Please see the following information for a summary of their discharge status. - Overall Improvement % Improvement: 75 - Objective Objective/Function: pt demo a decrease in time with the 9-hole peg test 31.44 a decline from 45.64. Demo increase in fine motor manipulation. right information systems manager 45# a increase from 40#. right lat. pinch 10#. right tripod pinch 9#. pt currently demo a right information systems manager strength greater than left and right lateral and tripod pinch equal to left. Pt has met goals in OT and is D/C at this time. - Goals Patient Goals: Improve Fine Motor Skills, Be More Independent in ADLS Other: improve writing Goal:: pt will demo the ability to write name, numbers legible to ind. mtg her checking by d/c. pt will demo a reduction in 9 hole peg time by 5 sec. demo a increase in FMS Goal:: pt will demo understanding and initiate compensitory eric. with ADLs to increase safety with hot, sharp or breakable objects by d/c - Plan Plan: D/C - D/C Information Discharge Comments: PT was seen for 15 visits- pt has made good gains with her FMS and demo a increase in Fine motor manipulation skills- pt has also been ed. in visual compensitory eric. to use around hot or sharp objects to prevent injury, as sensation will take time to improve. Pt has also been ed. in use of ad. eq. to increase her ind with ADls and IADLS. Pt has met OT goals- and is D/C with HEP. If there are questions or concerns regarding this patient's occupational therapy, please fell free to call me at [phone]. Thank you for the referral of this patient. Sincerely, Stephanie Schilling, OTR/L, CHT
== END 2018-10-04 14:45 | disposition home or self-care (01) ==
LOC: OT 10:30
PROVIDERS: Family Provider Internal Medicine; PCP Internal Medicine; Visit Provider Internal Medicine
DX: S93.402D Sprain of unspecified ligament of left ankle, subsequent encounter (principal); M19.90 Unspecified osteoarthritis, unspecified site
CPT/HCPCS: 97110; 97162; 97164; 97166; 97168; 97530

== ENCOUNTER 2018-12-24 15:00 | Outpatient (RCR) | payer BC, SELFPAY ==
[2018-10-18 10:24] VITALS: BMI 28.8
--- NOTE | 2018-11-13 09:31 | HP.PTEVAL_ITS ---
Patient's Visit Information JORGE LUIS BARRERA is a 78 year old F referred to Physical Therapy by Lucero Lucero DO with a diagnosis of Left Knee Pain. Date of Evaluation: 11/13/18 Physical Therapist: Amelie Rodriguez DPT - Visit Plan Frequency: 2x /Week Duration: 4 Weeks Plan: Aquatic Therapy- focus on LE and core strength/stabilization - Subjective Findings: Patient reports that she got a new car- automatic. She had cataracts surgery a few weeks ago and gets measured for glasses the . The patient reports that the knee is better now that she has stopped using a clutch. She knows that she has OA and feels that she needs to get stronger. She can start in the pool tomorrow. She has pain across the joint line. Pain leve is a 2/10 now compared to a 6-7/10 where it was before. She notices it more when she sits for to long during the day. PMHx/Meds: no changes since seeing Dr. Rojas. Is doing upper body and 5 min on the NuStep currently. - Objective Posture: FH, RS- increased kyphosis- does correct with tactile and VC's but does not maintain. Gait: abnormal- toes turned out to the side with wide FLOR. Stairs: non recip with 2 HR and signficant UE A. HR/TR: able with UE A- mild discomfort. 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 Palpation: tender along lateral and medial joint line. ROM: 0-120 degrees with pain at end range flexion. Strength: Ankle: 4+/5 throughout Knee: 4+/5 Hip: 4- /5. Core: fair minus, Flex: HS: moderate, Gastroc: moderate - Goals Goal 1:: Patient will be I with HEP and progression Goal Time Frame: 4-6 Weeks Goal 2:: Patient will ambualte >300 feet with a normalized gait pattern Goal Time Frame: 4-6 Weeks Goal 3:: Patient juan asc/desc 8 recip with 1 HR and good control Goal Time Frame: 4-6 Weeks Goal 4:: Patient will demo 5/5 strength in left LE Goal Time Frame: 4-6 Weeks - Rehabilitation Potential Physical Therapy Diagnosis: Patient presents with hypmobility- she has decreased strength, flex and muscular endurance leading to abnormal gait pattern and decreased ability to perform ADL's without pain. Rehabilitation Potential: Fair - Anticipated Interventions Patient/Client Instruction: Educate patient on: Benefits of Fitness Program Therapeutic Exercise to Include: Strength training, Endurance training, Agility training, Body mechanics, Postural training, Flexibilty training, Gait and locomotor training, In an aquatic setting, Dynamic Lumbar Stabilization, Scapular Strength/Stabilization For the Purpose of:: To improve muscle performance and motor function Thank you for the opportunity to evaluate your patient. For Medicare and Medicare HMO plans, please review the plan of care and approve it. It will need to be FAXED BACK to us at [phone] for Medicare purposes. For Medicare only, by signing this I certify the plan of care. Please let me know if there are questions or concerns regarding this plan of care. Physician Signature: Date:
--- NOTE | 2018-12-24 15:22 | HP.PTDCSUM ---
HP - PT D/C Summary It has been my pleasure to treat JORGE LUIS BARRERA under orders from Lucero Lucero DO, for the diagnosis of Left Knee Pain for a total of 10 visit(s). Discharge Date: Please see the following information for a summary of their discharge status. - Subjective Subjective: Patient reports that she is doing great. She got a new car and now has no pain in the knee - Pain L knee Pain Intensity (Out of 10): 0 - Overall Improvement % Improvement: 80 - Objective Objective/Function: Posture: FH, RS- increased kyphosis- does correct with tactile and VC's but does not maintain. Gait: abnormal- toes turned out to the side with wide FLOR. Stairs: recip 2 HR and signficant UE A. HR/TR: able with UE A. 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 ROM: 0-120 degrees n. Strength: Ankle: 4+/5 throughout Knee: 4+/5 Hip: 4/5. Core: fair minus, Flex: HS: moderate, Gastroc: moderate - Goals Goal 1:: Patient will be I with HEP and progression Goal Progress: Goal Met Goal 2:: Patient will ambualte >300 feet with a normalized gait pattern Goal Progress: Progressing Goal 3:: Patient juan asc/desc 8 recip with 1 HR and good control Goal Progress: Progressing Goal 4:: Patient will demo 5/5 strength in left LE Goal Progress: Progressing - Plan Plan: Discharge to I HEP - D/C Information If there are questions or concerns regarding this patient's physical therapy, please feel free to call me at [phone]. Thank you for the referral of this patient. Sincerely, VERA ZhangT
== END 2018-12-24 19:00 | disposition home or self-care (01) ==
LOC: PT 15:00
PROVIDERS: Family Provider Internal Medicine; PCP Internal Medicine; Referring Provider Orthopaedic Surgery; Visit Provider Orthopaedic Surgery
DX: M17.12 Unilateral primary osteoarthritis, left knee (principal); R53.81 Other malaise
CPT/HCPCS: 97113; 97161; 97164

== ENCOUNTER 2019-11-24 16:45 | Emergency (ER) | payer BC, SELFPAY ==
[2018-10-18 10:24] VITALS: BMI 28.8
[2019-11-24 16:46] VITALS: BP 147/75; PULSE 78; RESP 16; TEMP 36.4; O2SAT 95; BMI 25.8
--- NOTE | 2019-11-24 17:14 | CT_ITS ---
STUDY: CT BRAIN WITHOUT CONTRAST REASON FOR EXAM: Female, 79 years old. DIZZINESS, HX-LT BREAST CA with brain mets. Mastectomy, chemo and gamma knife. RADIATION DOSAGE (If Supplied By Facility): CTDIvol = ( 44.99 ) mGy, DLP = ( 796.11 ) mGycm TECHNIQUE: Transaxial CT imaging of the brain was performed without administration of intravenous contrast material. Individualized dose optimization techniques were used for this CT. COMPARISON: Previous MRI 07/31/2017, previous CT scan 09/08/2017. FINDINGS: Normal soft tissue structures. Normal calvarium. There is a 1.7 cm calcified mass at the left frontoparietal junction where the patient had a previous metastasis. The current appearance is consistent with an effectively treated metastasis. There is no mass effect. There is no significant edema. No other focal abnormalities. Normal size ventricles and extra-axial spaces for the patient''s age. Normal white matter tracts of the cerebral hemispheres. Normal basal ganglia and thalami. Normal brainstem. Normal cerebellum. There is no intracranial hemorrhage. There are no findings of an acute ischemic infarction. Normal visualized paranasal sinuses. CT/Brain/Head without Contrast IMPRESSION: No acute abnormality. Previously seen left frontoparietal metastasis has become calcified status post treatment. Electronically Signed: Nehemias Rodriguez MD at 18:13 EDT , Service support ,
--- NOTE | 2019-11-24 17:15 | EKG12_ITS ---
Test Reason : Blood Pressure : / mmHG Vent. Rate : 081 BPM Atrial Rate : 081 BPM P-R Int : 150 ms QRS Dur : 098 ms QT Int : 392 ms P-R-T Axes : 039 -29 056 degrees QTc Int : 455 ms Normal sinus rhythm Incomplete right bundle branch block Minimal voltage criteria for LVH, may be normal variant Borderline ECG Confirmed by FANI ESTEBAN, RAQUEL ([id number]), editor news DANIELLE STAHL ([id number]) on 11/26/2019 10:15:33 AM Referred By: Confirmed By:RAQUEL MOHR MD
--- NOTE | 2019-11-24 17:16 | ED.VIS.GEN ---
History of Present Illness Chief Complaint: Dizziness Informant: Patient Narrative: She states that around 2:00 she began to feel a dizziness sensation. Particularly worse with getting up and trying to move her turning her head. She states she gets a funny sensation in her eyes like she is moving. No nausea vomiting. No head trauma. She has a history of metastatic cancer with brain metastasis. She is status post gamma knife. She spoke with her oncologist who had her drink some extra water. She also tried an Ativan. She states her symptoms are now improving but it is been a couple hours since the Ativan. Denies any arm or leg symptoms. No speech changes. No confusion. Past Medical History - Allergies and Home Meds Allergies/Adverse Reactions: Allergies shellfish derived Allergy (Verified 11/24/19 16:46) Hives tetracycline [Tetracycline] Allergy (Verified 11/24/19 16:46) pt unsure alcohol Adverse Reaction (Verified 11/24/19 16:46) Unknown promethazine [From Phenergan] Adverse Reaction (Verified 11/24/19 16:46) Other CONFUSION Primary Care Physician: Tayla Espinal DO [Primary Care Provider] - Surgical History: - - History of pericardiocentesis, left mastectomy, gamma knife Smoking Status: Never smoker - Family History Maternal Family History: Family History (Last Reviewed 11/07/17 @ 08:25 by Amelie Gibson) Father Diabetes Hypertension CVA (cerebral vascular accident) Sister Asthma Diabetes Hypertension Arthritis Osteoporosis Lung disease Family History: Reports: No pertinent history Paternal Family History: Family History (Last Reviewed 11/07/17 @ 08:25 by Amelie Gibson) Father Diabetes Hypertension CVA (cerebral vascular accident) Sister Asthma Diabetes Hypertension Arthritis Osteoporosis Lung disease Family History: Reports: No pertinent history Review of Systems General: Denies: Chills, Fever, Sweats Eyes: Denies: Visual changes - bilaterally, Diplopia ENT: Denies: Rhinorrhea, Sore throat Cardiovascular: Denies: Chest pain, Palpitations Respiratory: Denies: Dyspnea, Cough, Dyspnea on exertion Gastrointestinal: Denies: Abdominal pain, Nausea, Vomiting, Diarrhea, Melena, Hematochezia Genitourinary: Denies: Dysuria, Hematuria, Frequency Musculoskeletal: Denies: Back pain, Extremity Pain Skin: Denies: Rash, Wounds Neurological: Reports: - - Dizziness. Denies: Headache, Weakness, Parasthesia, Numbness Physical Exam Vital Signs/Narrative: Vital Signs Temp Pulse Resp BP Pulse Ox 11/24/19 16:46 97.5 F L 78 16 147/75 H 95 Inital Vital Signs reviewed: Yes General: Well nourished, Well developed, No Acute Distress Head: Normocephalic, Atraumatic Eyes: Perrl, EOMI ENT: Moist mucous membranes, No rhinorrhea Neck: Supple, Nontender Cardiovascular: Regular rate, Regular rhythm, No murmurs Respiratory: No distress, CTA bilaterally, Chest nontender Abdomen: Soft, Nontender, Nondistended, Normal bowel sounds Back: Nontender, Normal Inspection Extremities: Nontender, No edema Skin: Normal color, No rash Neurological: Alert, Oriented x3, Cranial nerves II-XII grossly intact, Normal Strength, Normal Sensation Psychological: Normal affect, Normal Mood Diagnostic/Tx/Re-eval Clinical Impression(s) from Imaging Studies Brain CT 11/24/19 17:14 IMPRESSION: No acute abnormality. Previously seen left frontoparietal metastasis has become calcified status post treatment. Electronically Signed: Nehemias Rodriguez MD at 18:13 EDT , Service support , Laboratory Last Values WBC 7.7 K/mm3 (4.4-11.0) 11/24/19 17:40 RBC 3.80 M/mm3 (4.2-5.4) L 11/24/19 17:40 Hgb 12.2 g/dL (12.0-15.0) 11/24/19 17:40 Hct 37.8 % (37-47) 11/24/19 17:40 MCV 99.5 fL (81-99) H 11/24/19 17:40 MCH 32.1 pg (27.0-32.0) H 11/24/19 17:40 MCHC 32.3 g/dL (32-36) 11/24/19 17:40 RDW Std Deviation 48.4 fl (35.1-43.9) H 11/24/19 17:40 RDW Coeff of Natalie 13.2 % (11.6-14.6) 11/24/19 17:40 Plt Count 269 K/mm3 (150-450) 11/24/19 17:40 MPV 8.9 fl (6.2-12.0) 11/24/19 17:40 Immature Gran % (Auto) 0.500 % (0.0-0.9) 11/24/19 17:40 Neut % (Auto) 67.4 % (47-70) 11/24/19 17:40 Lymph % (Auto) 17.1 % (19-41) L 11/24/19 17:40 [place] % (Auto) 8.1 % (0-10) 11/24/19 17:40 Eos % (Auto) 6.4 % (0-5) H 11/24/19 17:40 Baso % (Auto) 0.5 % (0-1) 11/24/19 17:40 Absolute Neuts (auto) 5.2 X10^3/uL (2.0-7.7) 11/24/19 17:40 Absolute Lymphs (auto) 1.31 X10^3/uL (0.83-4.51) 11/24/19 17:40 Nucleated RBC % 0 % (0-5) 11/24/19 17:40 Sodium 140 mmol/L (136-145) 11/24/19 17:40 Potassium 3.8 mmol/L (3.5-5.1) 11/24/19 17:40 Chloride 104 mmol/L (98-107) 11/24/19 17:40 Carbon Dioxide 30.0 mmol/L (21.0-32.0) 11/24/19 17:40 Anion Gap 6 (5-15) 11/24/19 17:40 BUN 19 mg/dL (7-18) H 11/24/19 17:40 Creatinine 0.62 mg/dL (0.55-1.02) 11/24/19 17:40 Estim Creat Clear Calc 43.40 ml/min 11/24/19 17:40 Est GFR (MDRD) Af Amer 119 mL/min (>60) 11/24/19 17:40 Est GFR (MDRD) Non-Af 98 mL/min (>60) 11/24/19 17:40 BUN/Creatinine Ratio 30.4 RATIO (10-20) H 11/24/19 17:40 Glucose 99 mg/dL (74-106) 11/24/19 17:40 Calcium 9.8 mg/dL (8.5-10.1) 11/24/19 17:40 Troponin I < 0.015 ng/mL (<0.045) 11/24/19 17:40 - EKG Initial EKG Interpretation: Sinus Rhythm - Normal sinus rhythm with an incomplete right bundle branch block at a rate of 81 without concerning features of ACS or ectopy. - Medical Decision Making Patient received a small dose of meclizine as she is already had Ativan and I did not want to give her any Valium. Basic work-up was negative. She has been up walking and feels good. At this point I think she has positional vertigo. She does not want any new prescriptions and would like to stick with her Ativan if possible. She has follow-up arranged with her oncologist return if worsening or concerns. I did give her a handout on self repositioning techniques. ED Disposition - Plan for ED Patient: Disposition: Home or Assisted Living Diagnosis: Vertigo Instructions: ED BPV Vertigo Referrals: Tayla Espinal DO [Primary Care Provider] - As Needed
[2019-11-24] MEDS: Meclizine 12.5 MG Tablet PO (17:38)
[2019-11-24 17:46] LABS: Absolute Lymphocyte Count 1.31 X10^3/uL (0.83-4.51); Absolute Neutrophil Count 5.2 X10^3/uL (2.0-7.7); Basophil# 0.04 X10^3/uL; Basophil% 0.5 % (0-1); Eosinophil# 0.49 X10^3/uL; Eosinophils% 6.4 % (0-5); Hematocrit 37.8 % (37-47); Hemoglobin 12.2 g/dL (12.0-15.0); Lymphocyte # 1.31 X10^3/ul (4.0); Lymphocyte % 17.1 % (19-41); Mean Corp Hgb Conc 32.3 g/dL (32-36); Mean Corpuscular Hgb 32.1 pg (27.0-32.0); Mean Corpuscular Volume 99.5 fL (81-99); Mean Platelet Vol. 8.9 fl (6.2-12.0); Monocyte# 0.62 X10^3/uL; Monocyte% 8.1 % (0-10); NRBC Flagged by Analyzer 0 % (0-5); Neutrophil # 5.16 X10^3/uL (2.7-7.7); Neutrophil % 67.4 % (47-70); Platelet Count 269 K/mm3 (150-450); RBC Distribution Width CV 13.2 % (11.6-14.6); RBC Distribution Width SD 48.4 fl (35.1-43.9); White Blood Count 7.7 K/mm3 (4.4-11.0)
[2019-11-24 18:04] LABS: Anion Gap 6 (5-15); BUN 19 mg/dL (7-18); BUN/Creat Ratio 30.4 RATIO (10-20); Calcium,Total 9.8 mg/dL (8.5-10.1); Chloride 104 mmol/L (98-107); Creatinine, Serum 0.62 mg/dL (0.55-1.02); EST Glomerular Filtration Rate 98 mL/min (>60); Est Glom Filt Rate - Afr Amer 119 mL/min (>60); Glucose 99 mg/dL (74-106); Potassium 3.8 mmol/L (3.5-5.1); Sodium Level 140 mmol/L (136-145)
[2019-11-24 18:49] VITALS: BP 142/75; PULSE 82; RESP 16
== END 2019-11-24 18:50 | disposition home or self-care (01) ==
PROVIDERS: Emergency Provider Emergency Medicine; PCP Internal Medicine
DX: R42 Dizziness and giddiness (principal); I45.10 Unspecified right bundle-branch block; Z92.3 Personal history of irradiation; Z85.841 Personal history of malignant neoplasm of brain; Z79.899 Other long term (current) drug therapy
CPT/HCPCS: 70450; 80048; 84484; 85025; 93005; 96360; 99284; J7030

== ENCOUNTER 2020-02-10 09:06 | Outpatient (RCR) | payer BC, SELFPAY | END 2020-02-10 09:06 | disposition home or self-care (01) | LOC: PT 09:06 | PROVIDERS: PCP Internal Medicine; Visit Provider Internal Medicine | DX: M54.5 Low back pain (principal); Z87.81 Personal history of (healed) traumatic fracture ==

== ENCOUNTER 2020-03-20 13:00 | Outpatient (RCR) | payer BC, SELFPAY ==
[2018-10-18 10:24] VITALS: BMI 28.8
--- NOTE | 2019-10-17 10:36 | HP.PTEVAL_ITS ---
Patient's Visit Information JORGE LUIS BARRERA is a 79 year old F referred to Physical Therapy by Tayla Espinal DO with a diagnosis of BACK PAIN. Date of Evaluation: 10/17/19 Physical Therapist: India Gallegos PT, Cert MDT - Visit Plan Frequency: 2-3x /Week Duration: 4-6 Weeks Plan: ULTRASOUND TO LOW BACK IN SDLY IF OK'D BY ONCOLOGIST. POSTURE CORRECTION/STRENGTHENING, INSTRUCTION IN APPROPRIATE BODY MECHANICS AND ACTIVITY MODIFICATIONS. DLS STARTING WITH A NEUTRAL SPINE PROGRESSING ROM TOLERATED. OZZIE LE ROM, STRETCHING AND STRENGTHENING. HEP INSTRUCTION. CONSIDER AQUATIC THERAPY STRENGTH INCEASES AND PATIENT FEELS MORE CONFIDENT BEING SAFE TO GET FROM LOCKER ROOM TO POOL. - Subjective Work/Leisure: RETIRED. Present symptoms: OZZIE LOW BACK PAIN - LEFT > RIGHT. RIGHT HIP PAIN. OZZIE FOOT AND TOE NUMBNESS SINCE CHEMO 2016. Present since: CHRONIC LOW BACK PAIN BUT INCREASED AFTER RECENTFALL SEPTEMBER 02 2019. Pain Scale: WORST 5/10, LEAST 0/10. Currently: 3/10. LOW BACK PAIN IS IMPROVING. Commenced as a result of: FALL. Symptoms at onset: LOW BACK PAIN. Worse: DRIVING, WEATHER, A LOT WALKING, SOMETIMES SITTING, LYING ON BACK. STANDING STILL. SITTING IN CERTAIN CHAIRS. Better: BENDING, TYLONOL, LYING DOWN - RIGHT SDLY. Disturbed sleep: NO - NOT CURRENTLY. Previous history/Previous treatment: MASSAGE THERAPY FOR LOW BACK IN THE PAST. Treatment this episode: REST, TYLONOL, WALKER TO TAKE THE PRESSURE OF BACK AND HIPS. USING WALKER NEEDED VERY LITTLE RIGHT NOW. Coughing/sneezing/straining: NOT SURE. Gait: TIME AND DISTANCE LIMITED. STILL USING WALKER OCCASSIONALLY. Difficulty ini tiating urinatin: NO. Accidents: UNREMARKABLE. Unexplained weight loss: NO. Imaging: LOW BACK X-RAY - POSSIBLE COMPRESSION FX - NOT SURE IF NEW OR OLD. BONE DETERIORATION. OSTEOPOROSIS. 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 RADIATION AND CHEMO TREATMENTS. HTN. OSTEOPOROSIS. LEFT ELBOW FX. LEFT KNEE MENISCUS TEAR. OTHER: PATIENT REFUSES TO LIE ON BACK TODAY - I'M NOT GOING TO PUT MYSELF THEROUGH THAT. PATIENT REPORTS SHE IS IN REMISSION. - Objective Sitting/Standing Posture: POOR. INCREASED KYPHOSIS. Lordosis: REDUCED. Active Correction of posture: BETTER. Other Observations: INDEP GAIT INTO PT WITHOUT ANY ASSISTIVE DEVICES. VERY SHORT OZZIE STRIDE LENGTH. PATIENT IS ONLY ABLE TO STAND STILL FOR ABOUT 2 MINUTES THEN LOW BACK PAIN INCREASES. Motor deficit: OZZIE LE'S GROSSLY 5/5 EXCEPT LEFT HIP AND KNEE 4/5. Sensory deficit: DECREASED LEFT LEG/FOOT LIGHT TOUCH COMPARED TO RIGHT WITH TESTING. PATIENT REPORTS SHE HAS HAD THIS SINCE THE CHEMO. ROM deficit: OZZIE LE'S WFL. Dural Signs: NEGATIVE OZZIE LE'S. Lumbar mvmt loss: flex - MOD. INCREASES LBP. ext - JACOB. R SG - JACOB - INCREASES RIGHT LBP. L SG - JACOB - INCREASES RIGHT LBP. Core strength: POOR. Palpation: TENDERNESS WITH PALPATION OF THE LEFT LOW BACK AND RIGHT HIP REGIONS. TREATMENT: NEUROMUSCULAR REEDUCATION - RETRAINING OF MVMT AND POSTURE FOR SITTING, LYING AND STANDING ACTIVITIES. - Goals Goal 1:: DECREASE C/O LOW BACK PAIN Goal Time Frame: 4-6 Weeks Goal 2:: IMPROVE PERSONAL CARE, LIFTING, WALKING, SITTING, STANDING, SLEEP, SOCIAL LIFE, TRAVEL AND HOMEMAKING FUNCTION Goal Time Frame: 4-6 Weeks Goal 3:: INSTRUCT IN PROPHYLAXIS Goal Time Frame: 4-6 Weeks - Anticipated Interventions Patient/Client Instruction: Educate patient on: Condition, Plan of Care, Risk Factors, Benefits of Fitness Program For the Purpose of:: To improve self management Therapeutic Exercise to Include: Strength training, Body mechanics, Postural training, Flexibilty training, Gait and locomotor training, Neuromotor development, In an aquatic setting, Dynamic Lumbar Stabilization For the Purpose of:: To decrease pain, To increase ROM, To improve muscle performance and motor function, To increase tolerance to activity/condition/position, To improve ability of physical actions for home/community/work/leisure, To improve gait and locomotor functions Cryotherapy (ice pack, ice massage): Yes Thermo therapy (hot pack): Yes Ultrasound (thermal/non thermal): Yes For the Purpose of:: To decrease pain, To improve nutrient delivery to tissue Thank you for the opportunity to evaluate your patient. For Medicare and Medicare HMO plans, please review the plan of care and approve it. It will need to be FAXED BACK to us at [phone] for Medicare purposes. For Medicare only, by signing this I certify the plan of care. Please let me know if there are questions or concerns regarding this plan of care. Physician Signature: Date:
--- NOTE | 2019-11-08 14:00 | HP.PTREVAL_ITS ---
Dr. Tayla Espinal, DO, It has been my pleasure to treat JORGE LUIS BARRERA over the last 10 visits for BACK PAIN. Please see the progress note below for an update on the physical therapy plan of care! Subjective: PATIENT REPORTS INCREASED BACK, RIGHT HIP AND LEFT KNEE PAIN FROM MRI. Objective/Function: PATIENT WITH INCREASED PAIN TODAY BUT ABLE TO COMPLETE THER EX WITH SMALL INCREASES TODAY WITH INCREASED REST PERIODS. PATIENT WAS FATIGUED AT END OF SESSION. NO BETTER NO WORSE IN TERMS OF PAIN. PATIENT IS MAKING SLOW PROGRESS TOWARD ALL PT GOALS AND IS A GOOD CANDIDATE TO CONTINUE FORMAL PT. PATINT IS AGREEABLE. Plan Plan: CONT PT 2-3 TIMES A WEEK X 10 MORE VISITS TOLERATED. POSTURE CORRECTION/STRENGTHENING, GAIT TRAINING, INSTRUCTION IN APPROPRIATE BODY MECHANICS AND ACTIVITY MODIFICATIONS. DLS STARTING WITH A NEUTRAL SPINE PROGRESSING ROM TOLERATED. OZZIE LE ROM, STRETCHING AND STRENGTHENING. HEP INSTRUCTION. CONSIDER AQUATIC THERAPY STRENGTH INCEASES AND PATIENT FEELS MORE CONFIDENT BEING SAFE TO GET FROM LOCKER ROOM TO POOL. Goals Goal 1:: DECREASE C/O LOW BACK PAIN Goal Time Frame: 4-6 Weeks Goal Progress: Progressing Goal 2:: IMPROVE PERSONAL CARE, LIFTING, WALKING, SITTING, STANDING, SLEEP, SOCIAL LIFE, TRAVEL AND HOMEMAKING FUNCTION Goal Time Frame: 4-6 Weeks Goal Progress: Progressing Goal 3:: INSTRUCT IN PROPHYLAXIS Goal Time Frame: 4-6 Weeks Goal Progress: Progressing Anticipated Interventions Patient/Client Instruction: Educate patient on: Condition, Plan of Care, Risk Factors, Benefits of Fitness Program For the Purpose of:: To improve self management Therapeutic Exercise to Include: Strength training, Body mechanics, Postural training, Flexibilty training, Gait and locomotor training, Neuromotor develop ment, In an aquatic setting, Dynamic Lumbar Stabilization For the Purpose of:: To decrease pain, To increase ROM, To improve muscle performance and motor function, To increase tolerance to activity/condition/position, To improve ability of physical actions for home/community/work/leisure, To improve gait and locomotor functions Cryotherapy (ice pack, ice massage): Yes Thermo therapy (hot pack): Yes Ultrasound (thermal/non thermal): Yes For the Purpose of:: To decrease pain, To improve nutrient delivery to tissue Please do not hesitate to contact me at [phone] by phone or if you have questions or concerns regarding this new plan of care! Sincerely, India Gallegos, PT, Cert MDT
--- NOTE | 2020-01-06 14:39 | HP.PTREVAL_ITS ---
Dr. Tayla Espinal, DO, It has been my pleasure to treat JORGE LUIS BARRERA over the last 26 visits for BACK PAIN. Please see the progress note below for an update on the physical therapy plan of care! Subjective: PATIENT REPORTS HER MRI WAS SCHEDULED WRONG AND HAD TO BE RE- SCHEDULED TO MONDAY. PATIENT REPORTS SOMETIMES HER BACK BOTHERS HER AND SOMETIMES SHE DOESN'T. SHE REPORTS THAT OVER THE WEEKEND IT DIDN'T BOTHER HER AT ALL BUT IF SHE SITS TO LONG IT HURTS AND SITTING IN HER CAR HURTS. PATIENT REPORTS HER PAIN VARIES FROM DAY TO DAY AND FROM ACTIVITY TO ACTIVITY. PATIENT REPORTS SHE DEFINATELY FEELS THERAPY IS HELPING AND NEEDS MORE THERAPY. DID COME IN ON HER OWN ABOUT 3 TIMES SINCE LAST PT VISIT AND SHE DIVIDED SOME OF THE EX'S BETWEEN SESSIONS VS DOING THEM ALL AT ONCE. EXPRESSING FRUSTRATION AT NEEDING TO ASK FOR HELP WITH SOME EQUIPMENT ADJUSTMENTS THAT SHE USE TO BE ABLE TO DO HERSELF BUT SHE DOES NOT WANT HER EX PROGRAM CHANGED. PATIENT REPORTS SHE HAS NOT FALLEN SINCE THIS ALL HAPPENED SEPTEMBER 02 2019. STATES SHE DOES STILL HAVE A FEAR OF FALLING THOUGH. Objective/Function: PATIENT WAS SEEN TODAY FOR RE-ASSESSMENT OF PROGRESS TOWARD THE SET PT GOALS AND THE NEED FOR FURTHER PHYSICAL THERAPY VS READINESS FOR DISCHARGE. PATIENT HAS INCREASED STANDING TOLERANCE, INCREASED WALKING TOLERANCE (CAN GO TO THE MARKET NOW) AND INCREASED EX VOLUME TOLERANCE SINCE STARTING PT HOWEVER SHE STILL HAS PAIN LIMITING HER DAILY ACTIVITIES AND SHE LACKS CONFIDENCE IN BEING ABLE TO BE COMPLETELY INDEP WITH EX YET. SHE IS RESPONDED TO A GRADUAL DECREASE IN SKILLED SESSIONS THOUGH. THIS PT RECOMMENDS WORKING TOWARD DECREASING SKILLED PT TO ONCE EVERY TWO WEEKS NOW AND PATIENT IS AGREEABLE. SHE IS EMOTIONAL OFF AND ON DURING RE-EVAL TODAY RELATING THIS AT LEAST PARTIALLY TO LONELINESS, FRUSTRATION WITH MRI BEING SCHEDULED WRONG AND THE VIRUS. UPON EXAM TODAY: PATIENT DEMO'S. INDEP GAIT INTO PT WITHOUT ANY ASSISTIVE DEVICES. VERY SHORT OZZIE STRIDE LENGTH. SHE SPENDS LESS TIME ON RIGHT LE AND TOES OUT ON THE LEFT WITHOUT CUEING AT INITIAL EVAL. PATIENT IS NOW ABLE TO STAND STILL FOR ABOUT 5 MINUTES THEN LOW BACK PAIN INCREASES. THIS IS MORE THAN TWICE LONG SHE COULD AT INITIAL EVAL. Motor deficit: OZZIE LE'S GROSSLY 5/5 EXCEPT OZZIE HIP AND KNEE 4/5. PAIN IN LEFT HIP, LOW BACK AND LEFT KNEE LIMIT STRENGTH TESTING. Sensory deficit: DECREASED LEFT LEG/FOOT LIGHT TOUCH COMPARED TO RIGHT WITH TESTING. PATIENT REPORTS SHE HAS HAD THIS SINCE THE CHEMO. ROM deficit: OZZIE LE'S WFL. Dural Signs: MILDLY POSITIVE OZZIE LE'S WITH INCREASED L LOW BACK PAIN. Lumbar mvmt loss: flex - MOD. INCREASES LBP - MILD. ext - JACOB - INCREASES LBP. R SG - JACOB - MIDLY INCREASES RIGHT LBP AND RIGHT HIP PAIN. L SG - JACOB - MIDLY INCREASES LEFT HIP PAIN. Core strength: POOR. Palpation: TENDERNESS WITH PALPATION OF THE LEFT LOW BACK AND RIGHT HIP REGIONS. Plan Plan: CUE PATIENT DURING GAIT FOR LLE TOEING OUT CORRECTION AND CORE ENGAGEMENT. CUE FOR CORE CONTROL DURING THER EX NEEDED. CONT PT WORKING TOWARD DECREASING TO ONCE EVERY TWO WEEKS X 2 MONTHS FOR POSTURE CORRECTION/STRENGTHENING, GAIT TRAINING, INSTRUCTION IN APPROPRIATE BODY MECHANICS AND ACTIVITY MODIFICATIONS. DLS, OZZIE LE ROM, STRETCHING AND STRENGTHENING. HEP INSTRUCTION. Goals Goal 1:: DECREASE C/O LOW BACK PAIN Goal Time Frame: 4-6 Weeks Goal Progress: Progressing Goal 2:: IMPROVE PERSONAL CARE, LIFTING, WALKING, SITTING, STANDING, SLEEP, SOCIAL LIFE, TRAVEL AND HOMEMAKING FUNCTION Goal Time Frame: 4-6 Weeks Goal Progress: Progressing Goal 3:: INSTRUCT IN PROPHYLAXIS Goal Time Frame: 4-6 Weeks Goal Progress: Progressing Anticipated Interventions Patient/Client Instruction: Educate patient on: Condition, Plan of Care, Risk Factors, Benefits of Fitness Program For the Purpose of:: To improve self management Therapeutic Exercise to Include: Strength training, Body mechanics, Postural training, Flexibilty training, Gait and locomotor training, Neuromotor development, In an aquatic setting, Dynamic Lumbar Stabilization For the Purpose of:: To decrease pain, To increase ROM, To improve muscle performance and motor function, To increase tolerance to activity/condition/position, To improve ability of physical actions for home/community/work/leisure, To improve gait and locomotor functions Cryotherapy (ice pack, ice massage): Yes Thermo therapy (hot pack): Yes Ultrasound (thermal/non thermal): Yes For the Purpose of:: To decrease pain, To improve nutrient delivery to tissue Please do not hesitate to contact me at [phone] by phone or if you have questions or concerns regarding this new plan of care! Sincerely, India Gallegos, PT, Cert MDT
--- NOTE | 2020-02-10 09:03 | HP.PTEVAL ---
Patient's Visit Information JORGE LUIS BARRERA is a 79 year old F referred to Physical Therapy by Dr. Tayla Espinal DO with a diagnosis of BACK PAIN. Date of Evaluation: 10/17/19 Physical Therapist: VERA ReeseT, OCS, CSCS - Visit Plan Frequency: 2-3x /Week Duration: 4-6 Weeks Plan: CUE PATIENT DURING GAIT FOR LLE TOEING OUT CORRECTION AND CORE ENGAGEMENT. CUE FOR CORE CONTROL DURING THER EX NEEDED. CONT PT WORKING TOWARD DECREASING TO ONCE EVERY TWO WEEKS X 2 MONTHS FOR POSTURE CORRECTION/STRENGTHENING, GAIT TRAINING, INSTRUCTION IN APPROPRIATE BODY MECHANICS AND ACTIVITY MODIFICATIONS. DLS, OZZIE LE ROM, STRETCHING AND STRENGTHENING. HEP INSTRUCTION. - Subjective Work/Leisure: RETIRED. Present symptoms: OZZIE LOW BACK PAIN - LEFT > RIGHT. RIGHT HIP PAIN. OZZIE FOOT AND TOE NUMBNESS SINCE CHEMO 2016. Present since: CHRONIC LOW BACK PAIN BUT INCREASED AFTER RECENTFALL SEPTEMBER 02 2019. Pain Scale: WORST 5/10, LEAST 0/10. Currently: 3/10. LOW BACK PAIN IS IMPROVING. Commenced as a result of: FALL. Symptoms at onset: LOW BACK PAIN. Worse: DRIVING, WEATHER, A LOT WALKING, SOMETIMES SITTING, LYING ON BACK. STANDING STILL. SITTING IN CERTAIN CHAIRS. Better: BENDING, TYLONOL, LYING DOWN - RIGHT SDLY. Disturbed sleep: NO - NOT CURRENTLY. Previous history/Previous treatment: MASSAGE THERAPY FOR LOW BACK IN THE PAST. Treatment this episode: REST, TYLONOL, WALKER TO TAKE THE PRESSURE OF BACK AND HIPS. USING WALKER NEEDED VERY LITTLE RIGHT NOW. Coughing/sneezing/straining: NOT SURE. Gait: TIME AND DISTANCE LIMITED. STILL USING WALKER OCCASSIONALLY. Difficulty initiating urinatin: NO. Accidents: UNREMARKABLE. Unexplained weight loss: NO. Imaging: LOW BACK X-RAY - POSSIBLE COMPRESSION FX - NOT SURE IF NEW OR OLD. BONE DETERIORATION. OSTEOPOROSIS. 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 RADIATION AND CHEMO TREATMENTS. HTN. OSTEOPOROSIS. LEFT ELBOW FX. LEFT KNEE MENISCUS TEAR. OTHER: PATIENT REFUSES TO LIE ON BACK TODAY - I'M NOT GOING TO PUT MYSELF THEROUGH THAT. PATIENT REPORTS SHE IS IN REMISSION. - Pain Back Pain Intensity (Out of 10): 2 Comment: LEFT > RIGHT - Objective Sitting/Standing Posture: POOR. INCREASED KYPHOSIS. Lordosis: REDUCED. Active Correction of posture: BETTER. Other Observations: INDEP GAIT INTO PT WITHOUT ANY ASSISTIVE DEVICES. VERY SHORT OZZIE STRIDE LENGTH. PATIENT IS ONLY ABLE TO STAND STILL FOR ABOUT 2 MINUTES THEN LOW BACK PAIN INCREASES. Motor deficit: OZZIE LE'S GROSSLY 5/5 EXCEPT LEFT HIP AND KNEE 4/5. Sensory deficit: DECREASED LEFT LEG/FOOT LIGHT TOUCH COMPARED TO RIGHT WITH TESTING. PATIENT REPORTS SHE HAS HAD THIS SINCE THE CHEMO. ROM deficit: OZZIE LE'S WFL. Dural Signs: NEGATIVE OZZIE LE'S. Lumbar mvmt loss: flex - MOD. INCREASES LBP. ext - JACOB. R SG - JACOB - INCREASES RIGHT LBP. L SG - JACOB - INCREASES RIGHT LBP. Core strength: POOR. Palpation: TENDERNESS WITH PALPATION OF THE LEFT LOW BACK AND RIGHT HIP REGIONS. TREATMENT: NEUROMUSCULAR REEDUCATION - RETRAINING OF MVMT AND POSTURE FOR SITTING, LYING AND STANDING ACTIVITIES. - Goals Goal 1:: DECREASE C/O LOW BACK PAIN Goal Time Frame: 4-6 Weeks Goal 2:: IMPROVE PERSONAL CARE, LIFTING, WALKING, SITTING, STANDING, SLEEP, SOCIAL LIFE, TRAVEL AND HOMEMAKING FUNCTION Goal Time Frame: 4-6 Weeks Goal 3:: INSTRUCT IN PROPHYLAXIS Goal Time Frame: 4-6 Weeks - Anticipated Interventions Patient/Client Instruction: Educate patient on: Condition, Plan of Care, Risk Factors, Benefits of Fitness Program For the Purpose of:: To improve self management Therapeutic Exercise to Include: Strength training, Body mechanics, Postural training, Flexibilty training, Gait and locomotor training, Neuromotor development, In an aquatic setting, Dynamic Lumbar Stabilization For the Purpose of:: To decrease pain, To increase ROM, To improve muscle performance and motor function, To increase tolerance to activity/condition/position, To improve ability of physical actions for home/community/work/leisure, To improve gait and locomotor functions Cryotherapy (ice pack, ice massage): Yes Thermo therapy (hot pack): Yes Ultrasound (thermal/non thermal): Yes For the Purpose of:: To decrease pain, To improve nutrient delivery to tissue Thank you for the opportunity to evaluate your patient. For Medicare and Medicare HMO plans, please review the plan of care and approve it. It will need to be FAXED BACK to us at [phone] for Medicare purposes. For Medicare only, by signing this I certify the plan of care. Please let me know if there are questions or concerns regarding this plan of care. Physician Signature: Date:
--- NOTE | 2020-02-10 10:42 | HP.PTCOM ---
PT Communication Note 02/10/[address] Tayla Espinal, DO , Thank you for the referral of Amrit to [facility] for balance assessment. I have enclosed a copy of the results for your review. In summation, she appears very fearful to utilize properly any of her balance mechanisms. She scored low on vestibular and visual portions of the S[employer] test. She scored at deficit in nearly all weight shifting directions. with thesse results in mind, amrit will meet with her evaluating therapist to discuss implementation of a plan to help with these balance deficits. Please do not hesitate to contact me if there are questions regarding her balance assessment. Sincerely, Delano Dangelo, DPT, OCS, CSCS Contact Information
--- NOTE | 2020-03-20 14:47 | HP.PTDCSUM ---
It has been my pleasure to treat JORGE LUIS BARRERA referred by Dr. Tayla Espinal DO, with the diagnosis of BACK PAIN for a total of 40 visit(s). Discharge Date: Please see the following information for a summary of their discharge status. Subjective: DRIVING STILL PROVOKES MILD LEFT LOW BACK PAIN AT TIMES. STILL HAS PAIN WITH STAIRS BUT BETTER. Back Pain Intensity (Out of 10): 1 OZZIE KNEES Pain Intensity (Out of 10): 0 OZZIE FEET Pain Intensity (Out of 10): 0 % Improvement: 75 Objective/Function: PATIENT WAS SEEN TODAY FOR RE-ASSESSMENT OF PROGRESS TOWARD THE SET PT GOALS AND THE NEED FOR FURTHER PHYSICAL THERAPY VS READINESS FOR DISCHARGE (ASSISTED PATIENT WITH [facility] AT HER REQUEST). PATIENT IS INDEP WITH A GYM PROGRAM IS APPROPRIATE FOR D/C TO INDEP EX. SHE IS RELUCTANT BUT AGREEABLE TO DISCHARGE. UPON EXAM TODAY: PATIENT DEMO'S. INDEP GAIT INTO PT WITHOUT ANY ASSISTIVE DEVICES. VERY SHORT OZZIE STRIDE LENGTH. SHE SPENDS LESS TIME ON RIGHT LE AND TOES OUT ON THE LEFT WITHOUT CUEING STILL AT INITIAL EVAL. PATIENT STILL REPORTS FEAR OF FALLING. PATIENT IS NOW ABLE TO STAND STILL FOR AT LEAST 8 MINUTES WITHOUT C/O INCREASED LBP. Motor deficit: OZZIE LE'S GROSSLY 5/5 EXCEPT OZZIE HIP AND KNEE 4/5. PAIN IN LEFT HIP, LOW BACK AND LEFT KNEE LIMIT STRENGTH.TESTING. Sensory deficit: DECREASED LEFT ANKLE/FOOT LIGHT TOUCH COMPARED TO RIGHT WITH TESTING. PATIENT REPORTS SHE HAS HAD THIS SINCE THE CHEMO. Dural Signs: MILDLY POSITIVE OZZIE LE'S WITH INCREASED L LOW BACK PAIN. Lumbar mvmt loss: flex - NIL - BUT PRODUCES MILD RIGHT HIP ACHE THAT ABOLISHES QUICKLY. ext - MOD - FEELS PULL IN LEFT KNEE - NW. R SG - JACOB - NE. L SG - JACOB - MILD INCREASE IN LEFT LBP - NW. Core strength: POOR. Palpation: TENDERNESS WITH PALPATION OF THE THE L5S1 REGION TODAY. PATIENT COMMUNICATED A GOOD UNDERSTANDING OF ALL INSTRUCTIONS AFTER GIVEN AND HAS GAINED A LOT OF CONFIDENCE WITH EX DRUING THIS EPISODE OF CARE. Goal 1:: DECREASE C/O LOW BACK PAIN Goal Progress: Goal Met Goal 2:: IMPROVE PERSONAL CARE, LIFTING, WALKING, SITTING, STANDING, SLEEP, SOCIAL LIFE, TRAVEL AND HOMEMAKING FUNCTION Goal Progress: Goal Met Goal 3:: INSTRUCT IN PROPHYLAXIS Goal Progress: Goal Met Plan: D/C If there are questions or concerns regarding this patient's physical therapy, please feel free to call me at [phone]. Thank you for the referral of this patient. Sincerely, India Gallegos PT, Cert MDT
== END 2020-03-20 17:00 | disposition home or self-care (01) ==
LOC: PT 13:00
PROVIDERS: PCP Internal Medicine; Referring Provider Internal Medicine; Visit Provider Internal Medicine
DX: M54.5 Low back pain (principal); R26.89 Other abnormalities of gait and mobility
CPT/HCPCS: 97110; 97112; 97162; 97164; 97530; 97750

== ENCOUNTER 2020-04-05 05:17 | Emergency (ER) | payer BC, SELFPAY ==
[2020-04-05 05:18] VITALS: BP 177/81; PULSE 114; RESP 16; TEMP 37; O2SAT 94; BMI 27.1
--- NOTE | 2020-04-05 05:22 | EKG12_ITS ---
Test Reason : PALP Blood Pressure : / mmHG Vent. Rate : 092 BPM Atrial Rate : 092 BPM P-R Int : 140 ms QRS Dur : 094 ms QT Int : 374 ms P-R-T Axes : 030 -34 035 degrees QTc Int : 462 ms Normal sinus rhythm Left axis deviation Possible Pulmonary disease pattern Incomplete right bundle branch block Voltage criteria for left ventricular hypertrophy Abnormal ECG Confirmed by JAZZY ESTEBAN, MILAGROS ([id number]), scientific editor RICHARD HUBER ([id number]) on 04/07/2020 8:20:46 AM Referred By: RENEE Confirmed By:MILAGROS PURCELL MD
--- NOTE | 2020-04-05 05:23 | ED.DCSUM_ITS ---
History of Present Illness Chief Complaint: Palpitations Informant: Patient Onset: Hours - 6 Context: - - resting, noticed heart beating fast Timing: Intermittent Quality: fast HB Location: chest Current Severity: I don't notice it now, but if I relax and concentrate, I will feel it Maximum Severity: Moderate Worsened by: nothing in particular Relieved by: nothing Associated Symptoms: anxiety -- took some Ativan x 2; no other sx. Narrative: Patient presenting for palpitations. [employer] like her heart was beating fast. No skipping or racing. She denies any accompanying chest discomfort, shortness of breath, nausea, vomiting, sweats, lightheadedness or near syncope/syncope. States she had a heart dysrhythmia one time, but it was long ago and she does not follow with cardiology for trauma nor take any medications including anticoagulants for it. She did have a pericardial effusion once that she needed drained with some type of procedure, she does not recall the details. She denies any recent leg pain or swelling, no history of DVT or PE. She has a history of breast cancer, had a left mastectomy, currently is in remission, has not had IV chemotherapy in several years, currently takes maintenance hormonal therapy. The day before yesterday she had her seasonal influenza vaccination, no other new treatment/medications. Has not been drinking fluids very well lately but has not felt lightheaded or near syncopal. Denies any recent coughing, chills, myalgias, headache, fevers/chills or other recent illness. Patient presents during the national coronavirus emergency declaration/pandemic. She denies any known contact with anyone infected with COVID-19. She denies traveling out of the immediate area recently. - Past Medical History (1) Breast cancer Status: Chronic (2) History of atrial fibrillation Status: Chronic (3) History of pericardial effusion Status: Chronic Comment: Status post pericardiocentesis. 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 Burkett) Doctors: Madelaine - Hem-Onc Surgical History: - - History of pericardiocentesis, left mastectomy, gamma knife Smoking Status: Never smoker - Family History Maternal Family History: Family History (Last Reviewed 11/07/17 @ 08:25 by Amelie Gibson) Father Diabetes Hypertension CVA (cerebral vascular accident) Sister Asthma Diabetes Hypertension Arthritis Osteoporosis Lung disease Family History: Reports: No pertinent history Paternal Family History: Family History (Last Reviewed 11/07/17 @ 08:25 by Amelie Gibson) Father Diabetes Hypertension CVA (cerebral vascular accident) Sister Asthma Diabetes Hypertension Arthritis Osteoporosis Lung disease Family History: Reports: No pertinent history Review of Systems General: Denies: Chills, Fever, Sweats Eyes: Denies: Visual changes - bilaterally, Diplopia ENT: Denies: Rhinorrhea, Sore throat Cardiovascular: Reports: Palpitations. Denies: Chest pain Respiratory: Denies: Dyspnea, Cough, Dyspnea on exertion Gastrointestinal: Denies: Abdominal pain, Nausea, Vomiting, Diarrhea, Melena, Hematochezia Genitourinary: Denies: Dysuria, Hematuria, Frequency Musculoskeletal: Denies: Myalgias, Back pain, Swelling, Extremity Pain Skin: Denies: Rash, Wounds Neurological: Denies: Headache, Weakness, Numbness Psych: Reports: Anxiety. Denies: Suicidal thoughts Physical Exam Inital Vital Signs reviewed: Yes General: Well nourished, Well developed, No Acute Distress Head: Normocephalic, Atraumatic Eyes: Perrl, EOMI ENT: Moist mucous membranes, No rhinorrhea Neck: Supple, Nontender, No lymphadenopathy, No JVD Cardiovascular: Regular rate, Regular rhythm, Normal S1, Normal S2, Tachycardia - mild Respiratory: No distress, CTA bilaterally, Chest nontender Abdomen: Soft, Nontender, Nondistended, Normal bowel sounds Back: Nontender, Normal Inspection Extremities: Nontender, No edema. Negative for: Calf Tenderness Skin: Normal color, No rash, No Trauma Neurological: Alert, Oriented x3, Cranial nerves II-XII grossly intact, Normal Strength, Normal Sensation Psychological: Normal affect, Normal Mood Diagnostic/Tx/Re-eval Laboratory Results 04/05/20 04/05/20 05:30 05:30 WBC 8.8 RBC 3.93 L Hgb 12.2 Hct 37.3 MCV 94.9 MCH 31.0 MCHC 32.7 RDW Std Deviation 45.6 H RDW Coeff of Natalie 13.1 Plt Count 238 MPV 8.8 Immature Gran % (Auto) 0.200 Neut % (Auto) 74.5 H Lymph % (Auto) 12.1 L [place] % (Auto) 8.8 Eos % (Auto) 4.1 Baso % (Auto) 0.3 Absolute Neuts (auto) 6.6 Absolute Lymphs (auto) 1.06 Nucleated RBC % 0 Sodium 136 Potassium 3.6 Chloride 104 Carbon Dioxide 28.0 Anion Gap 4 L BUN 13 Creatinine 0.62 Estim Creat Clear Calc 41.72 Est GFR (MDRD) Af Amer 121 Est GFR (MDRD) Non-Af 100 BUN/Creatinine Ratio 21.1 H Glucose 110 H Calcium 9.1 Troponin I < 0.015 - Rhythm Strip Rhythm Strip: Sinus Rhythm Rate: 92 Ectopy: None - EKG Initial EKG Interpretation: Sinus Rhythm, RBBB - incomplete, - - LVH. LAD. Prior: Unchanged - Medical Decision Making Patient underwent laboratory work-up and an EKG. Her EKG is nonischemic, shows no ectopy, signs of dysrhythmia, and is unchanged compared with her prior. Specifically it also does not appear to show any obvious signs of an ectopic atrial rhythm. She states that she lives alone and could use someone to talk to and be with, and also notes that when someone is in the room here talking with her, she notices the symptoms less, but as I went into reevaluate her, she had been alone and was noticing the palpitations. During this time, her monitor is showing a heart rate at 92, sinus rhythm, no ectopy, and appears identical to the EKG that we obtained a short time prior. I reassured her. I do not think that there is any abnormal cardiac activity/process right now. Of note her blood pressure was high when she arrived, on repeat it is 139/65 without specific treatment. It is unknown if she is feeling her heart beating hard because she is a little dehydrated, or if this is anxiety, she is in agreement that it could be either, I feel she is stable to be discharged home and follow- up. She states that she will go home and drink plenty of water. ED Disposition - Plan for ED Patient: Disposition: Home or Assisted Living Diagnosis: Palpitations, Anxiety Instructions: ED Palpitations Referrals: Tayla Espinal, [Primary Care Provider] - 3-5 Days if not improving (and/or Dr. Burkett)
[2020-04-05 05:40] LABS: Absolute Lymphocyte Count 1.06 X10^3/uL (0.83-4.51); Absolute Neutrophil Count 6.6 X10^3/uL (2.0-7.7); Basophil# 0.03 X10^3/uL; Basophil% 0.3 % (0-1); Eosinophil# 0.36 X10^3/uL; Eosinophils% 4.1 % (0-5); Hematocrit 37.3 % (37-47); Hemoglobin 12.2 g/dL (12.0-15.0); Lymphocyte # 1.06 X10^3/ul (4.0); Lymphocyte % 12.1 % (19-41); Mean Corp Hgb Conc 32.7 g/dL (32-36); Mean Corpuscular Volume 94.9 fL (81-99); Mean Platelet Vol. 8.8 fl (6.2-12.0); Monocyte# 0.77 X10^3/uL; Monocyte% 8.8 % (0-10); NRBC Flagged by Analyzer 0 % (0-5); Neutrophil # 6.55 X10^3/uL (2.7-7.7); Neutrophil % 74.5 % (47-70); Platelet Count 238 K/mm3 (150-450); RBC Distribution Width CV 13.1 % (11.6-14.6); RBC Distribution Width SD 45.6 fl (35.1-43.9); Red Blood Count 3.93 M/mm3 (4.2-5.4); White Blood Count 8.8 K/mm3 (4.4-11.0)
[2020-04-05 05:57] LABS: Anion Gap 4 (5-15); BUN 13 mg/dL (7-18); BUN/Creat Ratio 21.1 RATIO (10-20); Calcium,Total 9.1 mg/dL (8.5-10.1); Chloride 104 mmol/L (98-107); Creatinine, Serum 0.62 mg/dL (0.55-1.02); EST Glomerular Filtration Rate 100 mL/min (>60); Est Glom Filt Rate - Afr Amer 121 mL/min (>60); Estimated Creatinine Clearance 41.72 ml/min; Glucose 110 mg/dL (74-106); Potassium 3.6 mmol/L (3.5-5.1); Sodium Level 136 mmol/L (136-145)
[2020-04-05 06:34] VITALS: BP 139/65; PULSE 93; RESP 16; O2SAT 94
== END 2020-04-05 06:34 | disposition home or self-care (01) ==
PROVIDERS: Emergency Provider Emergency Medicine; PCP Internal Medicine
DX: R00.2 Palpitations (principal); F41.9 Anxiety disorder, unspecified; E03.9 Hypothyroidism, unspecified; I48.91 Unspecified atrial fibrillation; Z79.899 Other long term (current) drug therapy
CPT/HCPCS: 80048; 84484; 85025; 93005; 99284; A4216

== ENCOUNTER 2021-04-02 09:52 | Outpatient (RCR) | payer BC, SELFPAY | END 2021-04-02 09:53 | disposition home or self-care (01) | LOC: PT 09:52 | PROVIDERS: PCP Internal Medicine; Referring Provider Internal Medicine; Visit Provider Internal Medicine | DX: M54.32 Sciatica, left side (principal); R26.89 Other abnormalities of gait and mobility; R53.1 Weakness ==

== ENCOUNTER 2021-04-09 13:00 | Outpatient (RCR) | payer BC, SELFPAY ==
--- NOTE | 2020-10-15 10:40 | HP.PTEVAL_ITS ---
Patient's Visit Information JORGE LUIS BARRERA is a 80 year old F referred to Physical Therapy by BELÉN Garza with a diagnosis of L SCIATICA. Date of Evaluation: 10/15/20 Physical Therapist: India Gallegos PT, Cert MDT - Visit Plan Frequency: 2-3x /Week Duration: 4-6 Weeks Plan: GAIT AND BALANCE ACTIVITIES. POSTURE CORRECTION/STRENGTHENING, INSTRUCTION IN APPROPRIATE BODY MECHANICS AND ACTIVITY MODIFICATIONS. DLS STARTING WITH A NEUTRAL SPINE PROGRESSING ROM TOLERATED. OZZIE LE ROM, STRETCHING AND STRENGTHENING. HEP INSTRUCTION. - Subjective Work/Leisure: RETIRED. Present symptoms: . L LOW BACK PAIN. *LEFT LEG PAIN AND WEAKNESS. BALANCE DIFFICULTY. Present since: AUGUST 28 2020. Pain Scale: WORST 7/10, LEAST 1/10. Currently: 07/29. Commenced as a result of: POSSIBLY THE SECOND COVID VACCINE. Symptoms at onset: L LE PAIN. Worse: PREVIOUS EX ROUTINE, LIFTING LIGHT THINGS EVEN LIKE THE WATERING CAN. STANDING. RISING FROM SITTING. BENDING. LYING DOWN. Better: TYLONOL. SITTING. Disturbed sleep: YES. Previous history/Previous treatment: PHYSICAL THERAPY. Coughing/sneezing/straining: NEGATIVE. Gait: PRETTY NORMAL EXCEPT FOR BEING MORE OFF BALANCE. NOT USING ANY ASSISTIVE DEVICES. NO FALLS. Difficulty initiating urinatin: NO. Accidents: NO. Unexplained weight loss: NO. Imaging: NONE RECENT. 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 RADIATION AND CHEMO TREATMENTS. HTN. OSTEOPOROSIS. LEFT ELBOW FX. LEFT KNEE MENISCUS TEAR. PATIENT REPORTS SHE IS IN REMISSION. PLOF (Prior Level of Function): HAS BEEN ABLE TO CONTINUE HER [employer] GYM EX PROGRAM THAT SHE WAS DISCHARGED WITH AFTER LAST EPISODE OF CARE UNTIL AFTER SECOND VACCINE. OTHER: PATIENT REPORTS INCREASED LLE WEAKNESS SINCE HAVING VACCINE. STATES SHE HAD DIFFICULTY STEPPING UP ON STEP TO GET ON EXAM TABLE AT THE [facility]. 2ND SHOT WAS AUGUST 28 2020 AND THAT IS WHEN SHE NOTICED INCREASED PAIN AND WEAKNESS L LE. OTHER: PATIENT REFUSES TO HAVE ANOTHER BALANCE PERFORMANCE TEST. - Objective Sitting/Standing Posture: POOR. Active Correction of posture: NE. Other Observations: INDEP GAIT INTO PT WITH A WADDLE TYPE GAIT PATTERN. VERY SHORT OZZIE STRIDE LENGTH. NO ASSISTIVE DEVICES AND NO LOB. INDEP TRANSFER SIT TO STAND WITHOUT UE ASSIST. Motor deficit: RIGHT LE: HIP 4-/5, KNEE EXT 4/5, KNEE FLEX 4/5, ANKLE 5/5. L LE: HIP 3+/5, KNEE EXT 4/5, KNEE FLEX 4/5, ANKLE 5/5. Sensory deficit: HYPERSENSATIVITY OF L THIGH COMPARED TO RIGHT. ROM deficit: OZZIE HIP FLEX AND IR TIGHTNESS. Reflexes: NT. Dural Signs: POSITIVE L LE. Lumbar mvmt loss: flex - NIL. ext - JACOB. R SG - MOD. L SG - MOD. INCREASED PAIN/PULLING WITH LUMBAR ROM TESTING ALL PLANES. Core strength: POOR. Palpation: TENDERNESS WITH PALPATION OF THE LEFT LOW BACK, BUTTOCK AND LATERAL HIP REGION. TREATMENT: NEUROMUSCULAR REEDUCATION - RETRAINING OF MVMT AND POSTURE FOR SITTING, LYING AND STANDING ACTIVITIES. - Goals Goal 1:: DECREASE C/O LOW BACK AND LLE SX'S Goal Time Frame: 4-6 Weeks Goal 2:: IMPROVE RISING FROM SITTING, STANDING, BENDING, LIFTING, ADL AND SLEEP FUNCTION. Goal Time Frame: 4-6 Weeks Goal 3:: INSTRUCT IN PROPHYLAXIS Goal Time Frame: 4-6 Weeks - Anticipated Interventions Patient/Client Instruction: Educate patient on: Condition, Plan of Care, Risk Factors, Benefits of Fitness Program For the Purpose of:: To improve self management Therapeutic Exercise to Include: Strength training, Body mechanics, Postural training, Flexibilty training, Neuromotor development, Dynamic Lumbar Stabilization For the Purpose of:: To decrease pain, To increase ROM, To improve muscle performance and motor function, To increase tolerance to activity/condition/position, To improve ability of physical actions for home/community/work/leisure Thank you for the opportunity to evaluate your patient. For Medicare and Medicare HMO plans, please review the plan of care and approve it. It will need to be FAXED BACK to us at [phone] for Medicare purposes. For Medicare only, by signing this I certify the plan of care. Please let me know if there are questions or concerns regarding this plan of care. Physician Signature: Date:
--- NOTE | 2020-12-25 14:27 | HP.PTREVAL_ITS ---
Elizabeth Villanueva, DEON-C, It has been my pleasure to treat JORGE LUIS BARRERA over the last 19 visits for L SCIATICA. Please see the progress note below for an update on the physical therapy plan of care! Subjective: PATIENT REPORTS WAKING UP AT 3AM MONDAY WITH NEW ONSET OF RIGHT LE PAIN FOR NO APPARENT REASON OTHER THAN HER SHOTS MONDAY. HAD TO USE THE WALKER AND DID MINIMAL ACTIVITY. ABLE TO GET SOME SLEEP MONDAY NIGHT. PATIENT REPORTS SHE FEELS THE SHOT CAUSED HER RIGHT LEG SX'S. IT HAD TO HAVE BEEN THE SHOT. PATIENT REPORTS SHE DID NOT CALL SANAZ (HER NURSE) BECAUSE DR. LUIS. PATIENT REPORTS SHE DOES HAVE A HISTORY OF SOME RIGHT SORENESS AND IT IS BACK TO ABOUT ITS NORMAL RIGHT NOW WITH TYLONOL BUT SHE WAS SHOCKED BY THE AMOUNT OF PAIN MONDAY. PATIENT RE-CALLS NOW FEELING SOME RIGHT THIGH DISCOMFORT RIGHT AFTER LEANING OVER THE END OF THE TABLE TO GET THE SHOTS MONDAY. PATIENT HAS A FOLLOW UP SCHEDULED WITH MARIA ESTHER OG CNP AT THE [facility] AND SHE PLANS TO DISCUSS CONTINUING PHYSICAL THERPAY WITH HER. Objective/Function: PATIENT WAS SEEN TODAY FOR RE-ASSESSMENT OF PROGRESS TOWARD THE SET PT GOALS AND THE NEED FOR FURTHER PHYSICAL THERAPY VS READINESS FOR DISCHARGE. ALSO SEEN FOR RE-ASSESSMENT OF RIGHT SHLD. THIS PT RECOMMENDS PHYSICIAN FOLLOW AT THIS TIME FOR FURTHER PT RECOMMENDATIONS. SHE REPORTS SHE DOES NOT PLAN TO RETURN TO CURRENT REFERRAL PRACTICE. PATIENT HAS MADE PROGRESS TOWARD SOME OF THE PT GOALS BUT TODAY SHE REPORTS NEW ONSET OF INCREASED RIGHT THIGH PAIN AND DEMO'S INCREASED LUMBAR ROM LIMITATION AND PAIN. SHE CONTINUES TO HAVE DECREASED BALANCE AND UNSTEADY GAIT AND THIS IS NOT IMPROVING. SHE WAS WORKING TOWARD INDEP GYM AND HOME EX'S BUT DOES NOT HAVE THE CONFIDENCE TO CONTINUE ABOUT 50% OF THEM INDEP'LY. THIS PT HAS STRONLY ENCOURAGED PATIENT TO TRY MORE INDEP EX BUT SHE IS VERY RESISTANT. EX VOLUME TOLERANCE HAS SIGNIFICANTLY IMPROVED COMPARED TO INITIAL EVAL. ALSO RECOMMENDED PATIENT REPORT NEW PAIN TO 'S OFFICE WHERE SHE RECEIVED THE SHOTS. UPON EXAM TODAY: Motor deficit: RIGHT LE: HIP 4/5, KNEE EXT 4-/5, KNEE FLEX 5/5, ANKLE 5/5. L LE: HIP 4-/5, KNEE EXT 4/5, KNEE FLEX 4/5, ANKLE 5/5. PATIENT C/O RIGHT KNEE PAIN WITH KNEE EXT TESTING. Sensory deficit: NO SIGNIFICANT DIFFERENCE IN LE'S APPARENT WITH TESTING. ROM deficit: OZZIE HIP FLEX AND IR TIGHTNESS. Reflexes: NT. Dural Signs: NEGATIVE OZZIE LE'S. Lumbar mvmt loss: flex - MOD. ext - JACOB. R SG - JACOB. L SG - JACOB. PATIENT C/O CENTRAL LBP WITH FLEXION, RIGHT HIP PAIN WITH R SG AND L HIP PAIN WITH L SG. Core strength: POOR. Palpation: TENDERNESS WITH LIGHT PALPATION OF THE LOWER LUMBAR SPINE AND OZZIE BUTTOCK REGIONS. R SHLD AROM IN SITTING: FLEX 125 DEG, 95 DEG ABD (PATIENT REFUSED TO LAY DOWN FOR FURTHER MEASUREMENTS OF R SHLD). IN SITTING R SHLD ACTIVE ER APPEARS TO BE APPOX 42 DEG. NOW ALMOST ABLE TO SKY RIGHT HAND TO SMALL OF BACK (IR) OZZIE UE LIGHT TOUCH SENSATION INTACT AND SYMMETRICAL. RIGHT UE AROM OF RIGHT ELBOW, FOREARM, WRIST AND HAND WFL. RIGHT BOOM PUMP OPERATOR STRENGTH 30 LBS. PATIENT IS R HAND DOMINANT. RIGHT SHLD STRENGTH GROSSLY 3+/5 WITH MMT'ING. Plan Plan: PHYSICIAN RE-ASSESSMENT. IF PHYSICIAN CONCURS - WILL CONTINUE PT FOR. RIGHT SHLD ROM AND STRENGTHENING TOLERATED. GAIT AND BALANCE ACTIVITIES. POSTURE CORRECTION/STRENGTHENING, INSTRUCTION IN APPROPRIATE BODY MECHANICS AND ACTIVITY MODIFICATIONS. DLS STARTING WITH A NEUTRAL SPINE PROGRESSING ROM TOLERATED. OZZIE LE ROM, STRETCHING AND STRENGTHENING. HEP INSTRUCTION. Goals Goal 1:: DECREASE C/O LOW BACK AND LLE SX'S Goal Time Frame: 4-6 Weeks Goal Progress: Not Progressing Goal 2:: IMPROVE RISING FROM SITTING, STANDING, BENDING, LIFTING, ADL AND SLEEP FUNCTION. Goal Time Frame: 4-6 Weeks Goal Progress: Not Progressing Goal 3:: INSTRUCT IN PROPHYLAXIS Goal Time Frame: 4-6 Weeks Goal Progress: Progressing Goal 4:: DECREASE C/O RIGHT SHLD PAIN Goal Time Frame: 4-6 Weeks Goal Progress: Progressing Goal 5:: INCREASE FUNCTIONAL R SHLD ROM TO ALLOW FOR PATIENT TO HOLD HER IPAD, DRIVE AND OPEN JARS WITH LESS PAIN. Goal Time Frame: 4-6 Weeks Goal Progress: Progressing Goal 6:: PATIENT WILL BE INDEP WITH AN EX PROGRAM FOR HER RIGHT SHLD FOR CONTINUED IMPROVEMENT ONCE FORMAL PHYSICAL THERAPY CONCLUDES. Goal Time Frame: 4-6 Weeks Goal Progress: Progressing Anticipated Interventions Patient/Client Instruction: Educate patient on: Condition, Plan of Care, Risk Factors, Benefits of Fitness Program For the Purpose of:: To improve self management Therapeutic Exercise to Include: Strength training, Body mechanics, Postural training, Flexibilty training, Neuromotor development, Dynamic Lumbar Stabilization For the Purpose of:: To decrease pain, To increase ROM, To improve muscle performance and motor function, To increase tolerance to activity/condition/position, To improve ability of physical actions for home/community/work/leisure Please do not hesitate to contact me at [phone] by phone or if you have questions or concerns regarding this new plan of care! Sincerely, India Gallegos, PT, Cert MDT
--- NOTE | 2020-12-25 14:27 | HP.PTEVAL ---
Patient's Visit Information JORGE LUIS BARRERA is a 80 year old F referred to Physical Therapy by BELÉN Garza with a diagnosis of L SCIATICA. Date of Evaluation: 10/15/20 Physical Therapist: India Gallegos PT, Cert MDT - Visit Plan Frequency: 2-3x /Week Duration: 4-6 Weeks Plan: PHYSICIAN RE-ASSESSMENT. IF PHYSICIAN CONCURS - WILL CONTINUE PT FOR. RIGHT SHLD ROM AND STRENGTHENING TOLERATED. GAIT AND BALANCE ACTIVITIES. POSTURE CORRECTION/STRENGTHENING, INSTRUCTION IN APPROPRIATE BODY MECHANICS AND ACTIVITY MODIFICATIONS. DLS STARTING WITH A NEUTRAL SPINE PROGRESSING ROM TOLERATED. OZZIE LE ROM, STRETCHING AND STRENGTHENING. HEP INSTRUCTION. - Subjective Work/Leisure: RETIRED. Present symptoms: . L LOW BACK PAIN. *LEFT LEG PAIN AND WEAKNESS. BALANCE DIFFICULTY. Present since: AUGUST 28 2020. Pain Scale: WORST 7/10, LEAST 1/10. Currently: 07/29. Commenced as a result of: POSSIBLY THE SECOND COVID VACCINE. Symptoms at onset: L LE PAIN. Worse: PREVIOUS EX ROUTINE, LIFTING LIGHT THINGS EVEN LIKE THE WATERING CAN. STANDING. RISING FROM SITTING. BENDING. LYING DOWN. Better: TYLONOL. SITTING. Disturbed sleep: YES. Previous history/Previous treatment: PHYSICAL THERAPY. Coughing/sneezing/straining: NEGATIVE. Gait: PRETTY NORMAL EXCEPT FOR BEING MORE OFF BALANCE. NOT USING ANY ASSISTIVE DEVICES. NO FALLS. Difficulty initiating urinatin: NO. Accidents: NO. Unexplained weight loss: NO. Imaging: NONE RECENT. 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 RADIATION AND CHEMO TREATMENTS. HTN. OSTEOPOROSIS. LEFT ELBOW FX. LEFT KNEE MENISCUS TEAR. PATIENT REPORTS SHE IS IN REMISSION. PLOF (Prior Level of Function): HAS BEEN ABLE TO CONTINUE HER [employer] GYM EX PROGRAM THAT SHE WAS DISCHARGED WITH AFTER LAST EPISODE OF CARE UNTIL AFTER SECOND VACCINE. OTHER: PATIENT REPORTS INCREASED LLE WEAKNESS SINCE HAVING VACCINE. STATES SHE HAD DIFFICULTY STEPPING UP ON STEP TO GET ON EXAM TABLE AT THE [facility]. 2ND SHOT WAS AUGUST 28 2020 AND THAT IS WHEN SHE NOTICED INCREASED PAIN AND WEAKNESS L LE. OTHER: PATIENT REFUSES TO HAVE ANOTHER BALANCE PERFORMANCE TEST. - Pain LOW BACK Pain Intensity (Out of 10): 2 L THIGH Pain Intensity (Out of 10): 2 Comment: HIP RIGHT SHLD Pain Intensity (Out of 10): 3 Comment: RAISING ARM - Objective Sitting/Standing Posture: POOR. Active Correction of posture: NE. Other Observations: INDEP GAIT INTO PT WITH A WADDLE TYPE GAIT PATTERN. VERY SHORT OZZIE STRIDE LENGTH. NO ASSISTIVE DEVICES AND NO LOB. INDEP TRANSFER SIT TO STAND WITHOUT UE ASSIST. Motor deficit: RIGHT LE: HIP 4-/5, KNEE EXT 4/5, KNEE FLEX 4/5, ANKLE 5/5. L LE: HIP 3+/5, KNEE EXT 4/5, KNEE FLEX 4/5, ANKLE 5/5. Sensory deficit: HYPERSENSATIVITY OF L THIGH COMPARED TO RIGHT. ROM deficit: OZZIE HIP FLEX AND IR TIGHTNESS. Reflexes: NT. Dural Signs: POSITIVE L LE. Lumbar mvmt loss: flex - NIL. ext - JACOB. R SG - MOD. L SG - MOD. INCREASED PAIN/PULLING WITH LUMBAR ROM TESTING ALL PLANES. Core strength: POOR. Palpation: TENDERNESS WITH PALPATION OF THE LEFT LOW BACK, BUTTOCK AND LATERAL HIP REGION. TREATMENT: NEUROMUSCULAR REEDUCATION - RETRAINING OF MVMT AND POSTURE FOR SITTING, LYING AND STANDING ACTIVITIES. - Goals Goal 1:: DECREASE C/O LOW BACK AND LLE SX'S Goal Time Frame: 4-6 Weeks Goal 2:: IMPROVE RISING FROM SITTING, STANDING, BENDING, LIFTING, ADL AND SLEEP FUNCTION. Goal Time Frame: 4-6 Weeks Goal 3:: INSTRUCT IN PROPHYLAXIS Goal Time Frame: 4-6 Weeks Goal 4:: DECREASE C/O RIGHT SHLD PAIN Goal Time Frame: 4-6 Weeks Goal 5:: INCREASE FUNCTIONAL R SHLD ROM TO ALLOW FOR PATIENT TO HOLD HER IPAD, DRIVE AND OPEN JARS WITH LESS PAIN. Goal Time Frame: 4-6 Weeks Goal 6:: PATIENT WILL BE INDEP WITH AN EX PROGRAM FOR HER RIGHT SHLD FOR CONTINUED IMPROVEMENT ONCE FORMAL PHYSICAL THERAPY CONCLUDES. Goal Time Frame: 4-6 Weeks - Anticipated Interventions Patient/Client Instruction: Educate patient on: Condition, Plan of Care, Risk Factors, Benefits of Fitness Program For the Purpose of:: To improve self management Therapeutic Exercise to Include: Strength training, Body mechanics, Postural training, Flexibilty training, Neuromotor development, Dynamic Lumbar Stabilization For the Purpose of:: To decrease pain, To increase ROM, To improve muscle performance and motor function, To increase tolerance to activity/condition/position, To improve ability of physical actions for home/community/work/leisure Thank you for the opportunity to evaluate your patient. For Medicare and Medicare HMO plans, please review the plan of care and approve it. It will need to be FAXED BACK to us at [phone] for Medicare purposes. For Medicare only, by signing this I certify the plan of care. Please let me know if there are questions or concerns regarding this plan of care. Physician Signature: Date:
--- NOTE | 2021-01-21 14:07 | HP.PTREVAL ---
Dr. Floridalma Forte MD, It has been my pleasure to treat JORGE LUIS BARRERA over the last 20 visits for L SCIATICA. Please see the progress note below for an update on the physical therapy plan of care! Subjective: PATIENT PRESENTS TO PT WITH NEW PT ORDER FROM DR. FORTE - SEE [facility] EMR. PATIENT REPROTS SHE HAS BEEN HAVING OTHER TESTS OVER THE LAST FEW WEEKS IN TERMS OF CAT SCANS AND MRI. LUMBAR SPINE OPEN MRI PENDING 02/01/21 FOR SPOT THAT HAS GROWN 2 CM PER RECENT CAT SCAN. POSSIBLE MATASTASIS PER PATIENT REPORT. PATIENT REPORTS HER RIGHT LE HAS RESOLVED. PATIENT REPORTS SHE HAS BEEN COMING TO [employer] FOR INDEP EX AND EX WITH [employer] ABOUT 2 TIMES A WEEK SINCE LAST PT VISIT. LEFT THIGH PAIN COMES AND GOES. EVEN ABLE TO DO NUSTEP ABOUT 5 MINUTES ONE VISIT. 3 PERSONAL TRAINING VISIT. PATIENT REPORTS SHE WANTS TO RESUME THERAPY TO BE BETTER BALANCED AND STRONGER TO BE ABLE TO DO MORE WITH HER FAMILY. AND SHE WANTS TO BE ABLE TO WALK A MILE OUTSIDE LIKE SHE COULD BEFORE HER CANCER SURGERY 4 YEARS AGO. Objective/Function: PATIVANESSA HAS BEEN REFERRED BACK TO PT BY DR. WRIGHT FOR DX'S OF LEFT SCIATICA, BALANCE PROBLEMS AND DECREASED STRENGTH. 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 SHLD NOT TESTED AND NEW ORDERS FOR SHLD NOT RECEIVED. PATIENT REPORTS SHE WILL CONTINUE TO DO HER UE EX'S INDEP'LY NEEDED/ABLE AND WILL SEE DR. FORTE FOR HER SHLD IF NEEDED. Plan Plan: PROGRESS GAIT AND BALANCE ACTIVITIES TOLERATED. PROGRESS POSTURE CORRECTION/STRENGTHENING, INSTRUCTION IN APPROPRIATE BODY MECHANICS AND ACTIVITY MODIFICATIONS. DLS WITH A NEUTRAL SPINE. PROGRESS OZZIE LE ROM, STRETCHING AND STRENGTHENING. INDEP EX INST. Balance/Gait/Functional tests - Balance/Special Test Scores Lower Extremity Functional Score: 24 Quick DASH Score: 65.9075 Goals Goal 1:: DECREASE C/O LOW BACK AND LLE SX'S Goal Time Frame: 4-6 Weeks Goal Progress: Not Progressing Goal 2:: IMPROVE RISING FROM SITTING, STANDING, BENDING, LIFTING, ADL AND SLEEP FUNCTION. Goal Time Frame: 4-6 Weeks Goal Progress: Not Progressing Goal 3:: INSTRUCT IN PROPHYLAXIS Goal Time Frame: 4-6 Weeks Goal Progress: Progressing Goal 4:: DECREASE C/O RIGHT SHLD PAIN Goal Time Frame: 4-6 Weeks Goal Progress: Progressing Goal 5:: INCREASE FUNCTIONAL R SHLD ROM TO ALLOW FOR PATIENT TO HOLD HER IPAD, DRIVE AND OPEN JARS WITH LESS PAIN. Goal Time Frame: 4-6 Weeks Goal Progress: Progressing Goal 6:: PATIENT WILL BE INDEP WITH AN EX PROGRAM FOR HER RIGHT SHLD FOR CONTINUED IMPROVEMENT ONCE FORMAL PHYSICAL THERAPY CONCLUDES. Goal Time Frame: 4-6 Weeks Goal Progress: Progressing Anticipated Interventions Patient/Client Instruction: Educate patient on: Condition, Plan of Care, Risk Factors, Benefits of Fitness Program For the Purpose of:: To improve self management Therapeutic Exercise to Include: Strength training, Body mechanics, Postural training, Flexibilty training, Neuromotor development, Dynamic Lumbar Stabilization For the Purpose of:: To decrease pain, To increase ROM, To improve muscle performance and motor function, To increase tolerance to activity/condition/position, To improve ability of physical actions for home/community/work/leisure Please do not hesitate to contact me at [phone] by phone or if you have questions or concerns regarding this new plan of care! Sincerely, India Gallegos, PT, Cert MDT
--- NOTE | 2021-03-12 15:01 | HP.PTREVAL_ITS ---
Dr. Floridalma Torres MD, It has been my pleasure to treat JORGE LUIS BARERRA over the last 32 visits for L SCIATICA. Please see the progress note below for an update on the physical therapy plan of care! Subjective: PATIENT REPORTS SHE DID GOOD AFTER LAST SESSION AND GETTING MORE CONFIDENCE IN DOING SOME OF THE EX'S INDEP'LY. STATES SHE IS STARTING TO BE ABLE TO DO A LITTLE LIGHT HOUSEWORK. TOOTH EXTRACTION PENDING NEXT WEEK. NEW IMUNOSUPPRESSANT MEDICATION STARTING NEXT WEEK. PATIENT REPORTS SHE IS HAVING A LITTLE CENTRAL AND LEFT LOW BACK PAIN. Objective/Function: PATIENT WAS SEEN TODAY FOR RE-ASSESSMENT OF PROGRESS TOWARD THE SET PT GOALS AND THE NEED FOR FURTHER PHYSICAL THERAPY VS READINESS FOR DISCHARGE. PATIENT HAS REC'D RADIATION TREATMENT FOR CANCER IN HER SPINE SINCE STARTING THIS EPISODE OF CARE AND SINCE LAST RE-CHECK. SHE HAS BEEN ABLE TO CONTINUE THERAPY WITH MODIFICATIONS AT TIMES BASED ON FATIGUE FROM CANCER TREATMENT. THERAPIST HAS BEEN ESSENTIAL FOR THER EX AND ACTIVITIES TO ENSURE PROPER TECHNIQUE AND SAFETY. PATIENT IS STILL A HIGH FALL RISK BUT DOES NOT FEEL COMFORTABLE USING AN ASSISTIVE DEVICE ON A REGULAR BASIS. MULTIPLE ATTEMPS MADE WITH GAIT TRAINING WITH CANE AND PATIENT ACTUALLY HAS HER OWN CANE NOW BUT DOES NOT USE IT. SHE HAS NOT BEEN ABLE TO RETURN TO HER PLOF (PRIOR LEVEL OF F UNCTION) SINCE ONSET OF HER SCIATICA IN THE LLE WHICH STARTED THIS EPISODE OF CARE. LBP IS EASILY IRRITATED TODAY WITH ALL TESTING EVEN WITH THIS THERAPIST PROCEEDING GENTLY WITH ALL TESTING. UPON EXAM TODAY: Motor deficit: RIGHT LE: HIP 4/5, KNEE EXT 4-/5, KNEE FLEX 5/5, ANKLE 5/5. L LE: HIP 4-/5, KNEE EXT 4/5, KNEE FLEX 4/5, ANKLE 5/5. PATIENT C/O RIGHT KNEE PAIN WITH HIP FLEXION AND KNEE EXT TESTING. PATIENT C/O MILD INCREASE IN LBP WITH ALL OZZIE LE STRENGTH TESTING TODAY. Sensory deficit: NO SIGNIFICANT DIFFERENCE IN LE'S APPARENT WITH TESTING. ROM deficit: OZZIE HIP FLEX AND IR TIGHTNESS. PATIENT ALSO WITH OZZIE GASTROC-SOLEUS TIGHTNESS NOW. Reflexes: NT. Dural Signs: NEGATIVE OZZIE LE'S. Lumbar mvmt loss: flex - MOD. ext - JACOB. R SG - JACOB. L SG - JACOB. PATIENT C/O MILD LEFT LBP WITH LSG TESTING ONLY TODAY. Core strength: POOR. Palpation: TENDERNESS WITH LIGHT PALPATION OF THE LOWER LUMBAR SPINE AND OZZIE BUTTOCK REGIONS. MILD LOW BACK PAIN CONTINUED THORUGHOUT SESSION TODAY BUT DID NOT MAKE PATIENT WANT TO STOP EXERCISING. ABLE TO DO MORE EX IN LESS TIME AGAIN TODAY. Plan Plan: CONTINUE PT 2X'S A WEEK X 8-10 VISITS. TRY STEP UP TO BALANCE ON BLACK FOAM VS 4 STEP. PROGRESS GAIT AND BALANCE ACTIVITIES TOLERATED. PROGRESS POSTURE CORRECTION/STRENGTHENING, INSTRUCTION IN APPROPRIATE BODY MECHANICS AND ACTIVITY MODIFICATIONS. DLS WITH A NEUTRAL SPINE. PROGRESS OZZIE LE ROM, STRETCHING AND STRENGTHENING. INDEP EX INST. Balance/Gait/Functional tests - Balance/Special Test Scores Lower Extremity Functional Score: 27 Quick DASH Score: 65.9075 Goals Goal 1:: DECREASE C/O LOW BACK AND LLE SX'S Goal Time Frame: 4-6 Weeks Goal Progress: Progressing Goal 2:: IMPROVE RISING FROM SITTING, STANDING, BENDING, LIFTING, ADL AND SLEEP FUNCTION. Goal Time Frame: 4-6 Weeks Goal Progress: Progressing Goal 3:: INSTRUCT IN PROPHYLAXIS Goal Time Frame: 4-6 Weeks Goal Progress: Progressing Goal 4:: DECREASE C/O RIGHT SHLD PAIN Goal Time Frame: 4-6 Weeks Goal Progress: Goal Met Goal 5:: INCREASE FUNCTIONAL R SHLD ROM TO ALLOW FOR PATIENT TO HOLD HER IPAD, DRIVE AND OPEN JARS WITH LESS PAIN. Goal Time Frame: 4-6 Weeks Goal Progress: Goal Met Goal 6:: PATIENT WILL BE INDEP WITH AN EX PROGRAM FOR HER RIGHT SHLD FOR JACOB NUED IMPROVEMENT ONCE FORMAL PHYSICAL THERAPY CONCLUDES. Goal Time Frame: 4-6 Weeks Goal Progress: Goal Met Anticipated Interventions Patient/Client Instruction: Educate patient on: Condition, Plan of Care, Risk Factors, Benefits of Fitness Program For the Purpose of:: To improve self management Therapeutic Exercise to Include: Strength training, Body mechanics, Postural training, Flexibilty training, Neuromotor development, Dynamic Lumbar Stabilization For the Purpose of:: To decrease pain, To increase ROM, To improve muscle performance and motor function, To increase tolerance to activity/condition/position, To improve ability of physical actions for home/community/work/leisure Please do not hesitate to contact me at [phone] by phone or if you have questions or concerns regarding this new plan of care! Sincerely, India Gallegos, PT, Cert MDT
--- NOTE | 2021-04-09 13:58 | HP.PTDCSUM_ITS ---
It has been my pleasure to treat JORGE LUIS BARRERA referred by Dr. Floridalma Torres MD, with the diagnosis of L SCIATICA for a total of 40 visit(s). Discharge Date: 04/09/21 Please see the following information for a summary of their discharge status. Subjective: HAS A PERSONAL TRAINING SESSION SET UP FOR NEXT WEEK. PATIENT REPORTS SHE HAD SOME RIGHT THIGH PAIN THAT WOKE HER UP LAST NIGHT BUT GONE BY MORNING. PATIENT RELUCTANT TO DISCHARGE BUT AGREEABLE TODAY. PATIENT REPORTS SHE IS DOWN TO TAKING 2 TYLONOL A DAY COMPARED TO THE 6 A DAY SHE WAS TAKING. LESS PAIN. I AM ABLE TO DO MORE. FOR EXAMPLE, I DID 2 LOADS OF LAUNDRY MONDAY. 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 LOW BACK Pain Intensity (Out of 10): 3 L THIGH Pain Intensity (Out of 10): 2 RIGHT SHLD Pain Intensity (Out of 10): 3 R THIGH Pain Intensity (Out of 10): 3 L LOWER LEG Pain Intensity (Out of 10): 0 % Improvement: 80 Objective/Function: PATIENT WAS SEEN TODAY FOR RE-ASSESSMENT OF PROGRESS TOWARD THE SET PT GOALS AND THE NEED FOR FURTHER PHYSICAL THERAPY VS READINESS FOR DISCHARGE. PATIENT HAS COMPLETED HER RADIATION TREATMENTS AND HAS LESS PAIN NOW. THERAPIST IS NO LONGER ESSENTIAL FOR THER EX AND ACTIVITIES TO ENSURE PROPER TECHNIQUE AND SAFETY. PATIENT IS STILL A HIGH FALL RISK BUT DOES NOT FEEL COMFORTABLE USING AN ASSISTIVE DEVICE ON A REGULAR BASIS. MULTIPLE ATTEMPS MADE WITH GAIT TRAINING WITH CANE AND PATIENT ACTUALLY HAS HER OWN CANE NOW BUT DOES NOT USE IT. UPON EXAM TODAY: PATIENT IS NOW ABLE TO TRANSFER INDEP'LY FROM SIT TO STAND WITHOUT UE ASSSIT ALTHOUGH IT DOES CAUSE SOME L KNEE PAIN DURING THE TRANSFER. DYNAMIC BALANCE HAS IMPROVED BUT STILL A FALL RISK - SEE BELOW. Motor deficit: RIGHT LE: HIP 4/5, KNEE EXT 5/5, KNEE FLEX 5/5, ANKLE 5/5. L LE: HIP 4-/5, KNEE EXT 4/5, KNEE FLEX 4/5, ANKLE 5/5. PATIENT C/O RIGHT KNEE PAIN WITH HIP FLEXION AND KNEE EXT TESTING. PATIENT TOLERATED LE STRENGHT AND ROM TESTING WELL TODAY. Sensory deficit: NO SIGNIFICANT DIFFERENCE IN LE'S APPARENT WITH TESTING. ROM deficit: OZZIE HIP FLEX AND IR TIGHTNESS. PATIENT ALSO WITH OZZIE GASTROC-SOLEUS TIGHTNESS WITHOUT SIGNIFICANT CHANGE SINCE LAST RE-CHECK. Reflexes: NT. Dural Signs: NEGATIVE OZZIE LE'S. Lumbar mvmt loss: flex - MIN - REPORTS PULLING IN RIGHT ANTERIOR AND LATERAL THIGH. ext - JACOB. R SG - MOD TO JACOB. L SG - MOD TO JACOB - PRODUCES MILD BREIF LEFT LBP. Core strength: POOR. Palpation: MILD RIGHT TENDERNESS WITH LIGHT PALPATION OF THE RIGHT LOWER LUMBAR PARASPINAL REGION BUT OTHERWISE NOT TENDER LIKE LAST RE- CHECK. Goal 1:: DECREASE C/O LOW BACK AND LLE SX'S Goal Progress: Progressing Goal 2:: IMPROVE RISING FROM SITTING, STANDING, BENDING, LIFTING, ADL AND SLEEP FUNCTION. Goal Progress: Progressing Goal 3:: INSTRUCT IN PROPHYLAXIS Goal Progress: Progressing Goal 4:: DECREASE C/O RIGHT SHLD PAIN Goal Progress: Goal Met Goal 5:: INCREASE FUNCTIONAL R SHLD ROM TO ALLOW FOR PATIENT TO HOLD HER IPAD, DRIVE AND OPEN JARS WITH LESS PAIN. Goal Progress: Goal Met Goal 6:: PATIENT WILL BE INDEP WITH AN EX PROGRAM FOR HER RIGHT SHLD FOR CONTINUED IMPROVEMENT ONCE FORMAL PHYSICAL THERAPY CONCLUDES. 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 PATIENT RELUCTANT BUT AGREEABLE. If there are questions or concerns regarding this patient's physical therapy, please feel free to call me at [phone]. Thank you for the referral of this patient. Sincerely, India Gallegos, PT, Cert MDT Balance/Gait/Functional tests - Balance/Special Test Scores Lower Extremity Functional Score: 36 Quick DASH Score: 65.9075
== END 2021-04-09 14:11 | disposition home or self-care (01) ==
LOC: PT 13:00
PROVIDERS: PCP Internal Medicine; Referring Provider Internal Medicine; Visit Provider Internal Medicine
DX: M25.511 Pain in right shoulder (principal); M54.32 Sciatica, left side; R53.81 Other malaise
CPT/HCPCS: 97035; 97110; 97112; 97116; 97162; 97164; 97530

== ENCOUNTER → 2022-01-18 | Outpatient (CLI) | payer BC, SELFPAY ==
--- NOTE | 2022-01-18 12:48 | VDLE_ITS ---
Reason For Study: Leg swelling RIGHT GSV is normal. CFV is compressible, spontaneous, phasic, competent and demonstrates normal augmentation. FV is compressible, spontaneous, phasic, competent and demonstrates normal augmentation. POP V is compressible, spontaneous, phasic, competent and demonstrates normal augmentation. T/P Trunk is compressible. PTV is compressible. RT PerV is compressible. Procedure This is a venous duplex using B-mode, color flow and spectral Doppler. Exam performed in department. A preliminary report was called and/or faxed to [facility]. VL/Venous Duplex US, Unilateral Interpretation Summary There is no evidence of right lower extremity deep vein thrombosis. Right great saphenous vein appears patent and compressible segmentally. Ordering Physician: Ky Burkett Referring Physician: Floridalma Torres Performed By: Ines Mcwilliams RVT
== END | disposition home or self-care (01) ==
LOC: CVS 12:47
PROVIDERS: PCP Internal Medicine; Referring Provider Internal Medicine Hematology & Oncology; Visit Provider Internal Medicine Hematology & Oncology
DX: M79.89 Other specified soft tissue disorders (principal); C79.31 Secondary malignant neoplasm of brain; C79.51 Secondary malignant neoplasm of bone; C50.812 Malignant neoplasm of overlapping sites of left female breast; Z17.0 Estrogen receptor positive status [ER+]
CPT/HCPCS: 93971

== ENCOUNTER 2022-02-24 16:01 | Observation (INO) | payer BC, MEDICARE, SELFPAY ==
[2022-02-24 16:02] VITALS: BP 123/71; PULSE 86; RESP 15; TEMP 36.6; O2SAT 98; BMI 28.4
--- NOTE | 2022-02-24 16:15 | EDS_ITS ---
HPI HPI - GI History of Present Illness Chief Complaint: Diarrhea Detail of Chief Complaint: Diarrhea x2 hours Informant: patient Narrative Narrative: Patient presents to the emergency department with complaint of diarrhea that started 2 hours ago. Patient states that she had explosive diarrhea and about 90 minutes later had a second episode. Patient states the stool is dark but not black. She denies abdominal pain. She denies sick contacts. Patient has had a slight cough but seems to be more of a chronic cough. She denies headache or body aches. She denies fever. She denies sick contacts otherwise. Patient has had the COVID-vaccine and booster. Patient denies vomiting. She has history of breast cancer and receiving oral chemotherapy. She denies recent travel. She denies recent antibiotic usage. [facility] Medical History (Updated 02/24/22 @ 17:[address] Tre Mcguire, ) History of atrial fibrillation History of pericardial effusion History of viral pericarditis Hypothyroidism Left breast mass Home Medications lorazepam 0.5 mg tablet 0.5 mg PO TID PRN PRN Anxiety 07/14/13 [History Last Taken 03/15/17] metoprolol tartrate 50 mg tablet 50 mg PO BIDCM HEART 07/14/13 [History Last Taken 08/12/18] acetaminophen 500 mg tablet 500 mg PO Q6H PRN PRN Pain 08/12/18 [History Last Taken Unknown] calcium phosphate 250 mg-vit D3 12.5 mcg (500 unit) chewable tablet 1 ea PO BID 08/12/18 [History Last Taken 08/12/18] ergocalciferol (vitamin D2) 1,250 mcg (50,000 unit) capsule 50,000 unit PO WESA 08/12/18 [History Last Taken 08/11/18] levothyroxine 100 mcg tablet 100 mcg PO DAILY 08/12/18 [History Last Taken 08/12/18] anastrozole 1 mg tablet 1 mg PO DAILY 90 days #90 tabs 10/18/18 [History Last Taken Unknown] dorzolamide 2 %-timolol 0.5 % (PF) eye drops 1 drp EACH EYE BID 11/24/19 [History Last Taken Unknown] latanoprost 0.005 % eye drops 1 drp EACH EYE QHS 11/24/19 [History Last Taken Unknown] Allergy/AdvReac Type Severity Reaction Status Date / Time shellfish derived Allergy Hives Verified 02/24/22 16:02 tetracycline [Tetracycline] Allergy pt unsure Verified 02/24/22 16:02 alcohol AdvReac Unknown Verified 02/24/22 16:02 promethazine [From Phenergan] AdvReac Other Verified 02/24/22 16:02 Family History Father Diabetes Hypertension CVA (cerebral vascular accident) Sister Asthma Diabetes Hypertension Arthritis Osteoporosis Lung disease Surgical History History of modified radical mastectomy of left breast S/P breast biopsy S/P pericardial surgery Status post gamma knife treatment Social History (Updated 10/18/18 @ 11:[address] Lucero Lucero, DO) Smoking Status: Never smoker second hand exposure: No alcohol intake: never substance use type: does not use what type of physical activity do you participate in: none frequency: does not exercise seatbelt use: always ROS ROS ED Review of Systems ROS Unobtainable: other Constitutional Constitutional ED: Reports lethargy; Denies chills, fever(s), sweats or weight loss Eyes Eyes: Denies blurry vision, change in vision or diplopia ENT ENT ED: Denies rhinorrhea or sore throat Cardiovascular Cardiovascular: Denies chest pain, orthopnea, palpitations or racing heartbeat Respiratory/Chest Respiratory/Chest: Denies cough, dyspnea, dyspnea on exertion, orthopnea or sputum Gastrointestinal Gastrointestinal: Reports diarrhea; Denies abdominal pain, constipation, melena, nausea or vomiting Genitourinary Genitourinary ED: Denies dysuria, hematuria or urinary frequency Musculoskeletal Musculoskeletal: Denies arthralgias, back pain, myalgias or neck pain Integumentary Denies abscess, Abrasions or rash Neurologic Neurologic: Denies headache(s) or weakness Psychiatric Psychiatric: Denies anxiety, depression or suicidal thoughts Endocrine Endocrinology: Denies polydipsia, polyphagia or polyuria Hematologic/Lymphatic Hematologic/Lymphatic: Denies easy bleeding, easy bruising or lymphadenopathy Allergic/Immunologic Allergic/Immunologic ED: Denies mouth swelling, tongue swelling or urticaria EXAM Physical Exam Const Vital Signs: 02/24/22 16:02 Temperature 97.9 F Temperature Source Temporal Pulse Rate 86 Respiratory Rate 15 Blood Pressure 123/71 H Blood Pressure Mean 88 Pulse Ox 98 Oxygen Delivery Method Room Air Positive well nourished and well developed General Appearance ED: well developed and NAD HEENT Reports TM's clear and moist mucous membranes normocephalic and atraumatic; Negative for trauma or tenderness Tympanic Membrane ED: Yes TM's clear Eyes PERRL and EOMs intact bilaterally General Eye ED: Negative for pale conjunctiva or scleral icterus Neck no lymphadenopathy, supple and no JVD General: Negative for tenderness Chest Wall inspection of chest normal and palpation of chest normal Chest: Negative for tenderness Resp normal respiratory effort and clear to auscultation bilaterally Effort and Inspection: Negative for respiratory distress or pain with movement Auscultation: Negative for rhonchi, wheezes or diminished lung sounds Cardio regular rate, regular rhythm, S1 normal heart sound, S2 normal heart sound and no murmurs Peripheral Pulses: pulses 2+ throughout GI soft to palpation, non-tender, non-distended and no masses GI Narrative: Hyperactive bowel sounds Back/Spine no CVA tenderness and no thoracic nor lumbar tenderness Extremity normal to inspection General Extremety ED: Negative for edema General Extremity: Negative for edema Neuro oriented x3, CN's II-XII intact bilaterally, no sensory deficits noted and gait normal Sensorium / Orientation: awake, alert, oriented to person, oriented to place and oriented to time Motor Exam: strength 5/5 throughout and strength abnormal Psych mental status grossly normal Skin no rashes or lesions noted and no wounds MDM MDM MDM Narrative Medical decision making narrative: IV line established on arrival. Patient was given normal saline. Patient had stool ordered for C. difficile as well as enteric pathogen's however she has not been able to give a sample as she initially contaminated for sample with urine. Patient generally feels weak and lives alone and does not feel comfortable going home. Case will be discussed with hospitalist evaluate patient for admission for observation due to ongoing diarrhea and generalized weakness. Lab Data Attestation: I reviewed the patient's lab results. Labs: Laboratory Results - last 24 hr 02/24/22 02/24/22 16:20 16:20 WBC 2.4 L RBC 2.95 L Hgb 10.9 L Hct 33.0 L MCV 111.9 H MCH 36.9 H MCHC 33.0 RDW Std Deviation 59.0 H RDW Coeff of Natalie 14.6 Plt Count 191 MPV 8.8 Immature Gran % (Auto) 0.400 Neut % (Auto) 66.8 Lymph % (Auto) 19.6 [place] % (Auto) 8.9 Eos % (Auto) 3.0 Baso % (Auto) 1.3 H Absolute Neuts (auto) 1.6 L Absolute Lymphs (auto) 0.46 L Nucleated RBC % 0 Differential Comment SEE COMMENT Diff Path Review May foll Platelet Estimate ADEQUATE RBC Morphology N CHROM Anisocytosis 1+ Macrocytosis 1+ Sodium 140 Potassium 4.3 Chloride 106 Carbon Dioxide 31.0 Anion Gap 3 L BUN 18 Creatinine 0.96 Estim Creat Clear Calc 42.06 Est GFR (MDRD) Af Amer 72 Est GFR (MDRD) Non-Af 59 L BUN/Creatinine Ratio 18.7 Glucose 134 H Calcium 9.3 Discharge Plan Triage Chief Complaint: Diarrhea ED Provider: Tre Mcguire Dx/Rx/DC Orders Clinical Impression: Diarrhea, Weakness, History of breast cancer Prescriptions: No Action anastrozole 1 mg tablet 1 mg PO DAILY 90 Days Qty: 90 lorazepam 0.5 MG tablet 0.5 mg PO TID PRN PRN (Reason: Anxiety) Label Comments: ANXIETY metoprolol tartrate 50 MG tablet 50 mg PO BIDCM Label Comments: TAKES IN AM AND WITH SUPPER acetaminophen 500 MG tablet 500 mg PO Q6H PRN PRN (Reason: Pain) levothyroxine 100 MCG tablet 100 mcg PO DAILY ergocalciferol (vitamin D2) 50,000 UNIT capsule 50,000 unit PO WESA calcium phosphate-vitamin D3 1 EACH tablet,chewable 1 ea PO BID latanoprost 1 DROP bottle 1 drp EACH EYE QHS dorzolamide-timolol (PF) 10 ML drops 1 drp EACH EYE BID Primary Care Provider: Floridalma Torres Referrals: Floridalma Torres MD [Primary Care Provider] - Disposition Disposition: Acute Care Hospital [facility]
[2022-02-24] MEDS: 0.9% Normal Saline 1,000 ML 1000 ML IV (16:30)
[2022-02-24 16:35] LABS: Absolute Lymphocyte Count 0.46 X10^3/uL (0.83-4.51); Absolute Neutrophil Count 1.6 X10^3/uL (2.0-7.7); Basophil# 0.03 X10^3/uL; Basophil% 1.3 % (0-1); Eosinophil# 0.07 X10^3/uL; Hemoglobin 10.9 g/dL (12.0-15.0); Lymphocyte # 0.46 X10^3/ul (0.83-4.51); Lymphocyte % 19.6 % (19-41); Mean Corpuscular Hgb 36.9 pg (27.0-32.0); Mean Corpuscular Volume 111.9 fL (81-99); Mean Platelet Vol. 8.8 fl (6.2-12.0); Monocyte# 0.21 X10^3/uL; Monocyte% 8.9 % (0-10); NRBC Flagged by Analyzer 0 % (0-5); Neutrophil # 1.57 X10^3/uL (2.7-7.7); Neutrophil % 66.8 % (47-70); POSITIVE DIFFERENTIAL YES; Platelet Count 191 K/mm3 (150-450); RBC Distribution Width CV 14.6 % (11.6-14.6); Red Blood Count 2.95 M/mm3 (4.2-5.4); White Blood Count 2.4 K/mm3 (4.4-11.0)
[2022-02-24 16:36] LABS: Differential Indicated SCAN CRITERIA MET
[2022-02-24 16:41] LABS: Anion Gap 3 (5-15); BUN 18 mg/dL (7-18); BUN/Creat Ratio 18.7 RATIO (10-20); Calcium,Total 9.3 mg/dL (8.5-10.1); Chloride 106 mmol/L (98-107); Creatinine, Serum 0.96 mg/dL (0.55-1.02); EST Glomerular Filtration Rate 59 mL/min (>60); Est Glom Filt Rate - Afr Amer 72 mL/min (>60); Estimated Creatinine Clearance 42.06 ml/min; Glucose 134 mg/dL (74-106); Potassium 4.3 mmol/L (3.5-5.1); Sodium Level 140 mmol/L (136-145)
[2022-02-24 17:14] LABS: Anisocytosis 1+; Macrocytosis 1+; Platelet Estimate ADEQUATE (ADEQ); Red Cell Morphology N CHROM NORMAL (NORM C&C)
[2022-02-24 18:04] VITALS: BP 189/77; PULSE 84; RESP 14; TEMP 36.6; O2SAT 97
--- NOTE | 2022-02-24 18:26 | HP.PCM.HOS_ITS ---
HPI - General General Date of Admission: 02/24/22 Date of Service: 02/24/22 Chief Complaint: Intractable diarrhea, FTT adult HPI Narrative The patient is an 81 y/o F w/ PMHx: PAF, Hx Metastatic Breast CA s/p mastectomy L breast as well as gamma knife treatment with last chemotherapy ~ 5 years prior transitioned to oral regimen and monthly injections following w/ Dr. Burkett, Hypothyroidism, Anxiety and Depression, HTN who presents to the [facility] ED on 02/24/22 secondary to sudden onset late afternoon explosive unrelenting diarrhea with no associated nausea, emesis, abdominal cramping/pain and denied black/tarry appearance but given ongoing and her signficant anxiety at taking care of herself in this state as she lives alone prompted her ED evaluation. She had additional diarrhea while in the ED for at total of > 6 per her report. She den ies any recent medication addition/changes including antibiotics. She notes she did eat out at [facility] [employer] [facility] at ~ 11 am but otherwise no change in her regimen. She notes since onset of her symptoms she has had significant debility, weakness, unable to care for herself safely at home with near fall events prompting ED evaluation. Work-up in the ED included T 98, heart rate 84, BP 189/77, respiratory rate 14, 97% room air, CBC with WC 2.4, hemoglobin 10.9, MCV 111.9, platelet 191 with decreased absolute neutrophil count 1.6 and lymphopenia concurrently, BMP not marked appearing aside glucose 134, rapid COVID antigen negative. In the ED patient ministered 1 L normal saline bolus. [facility] Medical History (Updated 02/24/22 @ 18:[address] Mariama Arvizu MD) History of breast cancer History of pericardial effusion History of viral pericarditis Hypothyroidism PAF (paroxysmal atrial fibrillation) Home Medications lorazepam 0.5 mg tablet 0.5 mg PO TID PRN PRN Anxiety 07/14/13 [History Last Taken 03/15/17] metoprolol tartrate 50 mg tablet 50 mg PO BIDCM HEART 07/14/13 [History Last Taken 08/12/18] acetaminophen 500 mg tablet 500 mg PO Q6H PRN PRN Pain 08/12/18 [History Last Taken Unknown] calcium phosphate 250 mg-vit D3 12.5 mcg (500 unit) chewable tablet 1 ea PO BID 08/12/18 [History Last Taken 08/12/18] ergocalciferol (vitamin D2) 1,250 mcg (50,000 unit) capsule 50,000 unit PO WESA 08/12/18 [History Last Taken 08/11/18] levothyroxine 100 mcg tablet 100 mcg PO DAILY 08/12/18 [History Last Taken 08/12/18] anastrozole 1 mg tablet 1 mg PO DAILY 90 days #90 tabs 10/18/18 [History Last Taken Unknown] dorzolamide 2 %-timolol 0.5 % (PF) eye drops 1 drp EACH EYE BID 11/24/19 [History Last Taken Unknown] latanoprost 0.005 % eye drops 1 drp EACH EYE QHS 11/24/19 [History Last Taken Un known] Allergy/AdvReac Type Severity Reaction Status Date / Time shellfish derived Allergy Hives Verified 02/24/22 16:02 tetracycline [Tetracycline] Allergy pt unsure Verified 02/24/22 16:02 alcohol AdvReac Unknown Verified 02/24/22 16:02 promethazine [From Phenergan] AdvReac Other Verified 02/24/22 16:02 Family History Father Diabetes Hypertension CVA (cerebral vascular accident) Sister Asthma Diabetes Hypertension Arthritis Osteoporosis Lung disease Surgical History History of modified radical mastectomy of left breast S/P breast biopsy S/P pericardial surgery Status post gamma knife treatment Social History (Updated 10/18/18 @ 11:[address] Lucero Lucero, DO) Smoking Status: Never smoker second hand exposure: No alcohol intake: never substance use type: does not use what type of physical activity do you participate in: none frequency: does not exercise seatbelt use: always ROS ROS Narrative Admission Review of Systems: CONSTITUTIONAL: No weight loss, fever, chills, + weakness or fatigue. HEENT: Eyes: No visual loss, blurred vision, double vision or yellow sclerae. Ears, Nose, Throat: No hearing loss, sneezing, congestion, runny nose or sore throat. SKIN: No rash or itching, lesions, wounds. CARDIOVASCULAR: No chest pain, chest pressure or chest discomfort, palpitations, edema, orthopnea, syncopal events. RESPIRATORY: No shortness of breath, cough or sputum, wheezing, hemoptysis. GASTROINTESTINAL: + severe explosive unrelenting diarrhea, No anorexia, nausea, vomiting, abdominal pain or bloating, melena, BRBPR. GENITOURINARY: No dysuria, frequency, urgency or retention. NEUROLOGICAL: No headache, dizziness, syncope, paralysis, ataxia, numbness or tingling in the extremities, focal weakness, change in bowel or bladder control, seizure. MUSCULOSKELETAL: + muscle, back pain, joint pain or stiffness. HEMATOLOGIC: + anemia, bleeding or bruising. LYMPHATICS: No enlarged nodes. No history of splenectomy. PSYCHIATRIC: + history of depression or anxiety. ENDOCRINOLOGIC: No reports of sweating, cold or heat intolerance. No polyuria or polydipsia. ALLERGIES: + history of hives. Vital Signs Vital Signs Vital Signs: 02/24/22 16:02 02/24/22 18:04 Temperature 97.9 F 98 F Temperature Source Temporal Temporal Pulse Rate 86 84 Respiratory Rate 15 14 Blood Pressure 123/71 H 189/77 H Blood Pressure Mean 88 114 Pulse Ox 98 97 Oxygen Delivery Method Room Air Room Air Weight Weight: 171 lb Body Mass Index (BMI) 28.4 Physical Exam Narrative Physical Examination: General: Awake, alert, oriented x 3 and cooperative, seated upright in the ED bed, extremely anxious, fatigued, staff notes recent diarrhea in the ED. Skin: Normal color, normal turgor, no icterus, no cyanosis. HEENT: AT/NC, EOMI, PERRLA, mildly dry MM, no carotid bruits or JVD noted. Lungs: Mildly diminished, greater bases, appropriate effort, no rales, ronchi or wheezing. Heart: Regular rate and rhythm; no gallop, rub audible. Abdomen: Soft, overweight, nontender to palpation, appears mildly distended, hyperactive bowel sounds, no obvious HSM. Extremities: No cyanosis, clubbing, or edema. Neurological: Patient awake, alert, oriented as noted, cognitive function appears baseline intact; pupils equally reactive to light and accommodation, cranial nerves grossly normal, moving all 4 extremities, no focal deficits, strength moderately global decrease secondary to acute presentation. Psychiatric: Affect appears extremely anxious, very nervous about any consi deration for going home secondary to concern for falls and inability to care for self with explosive diarrhea, does have underlying significant anxiety and suspect depression. Results Lab / Micro Data Result Diagrams: 02/24/22 16:20 02/24/22 16:20 Labs: Laboratory Results - last 24 hr 02/24/22 16:20: WBC 2.4 L, RBC 2.95 L, Hgb 10.9 L, Hct 33.0 L, MCV 111.9 H, MCH 36.9 H, MCHC 33.0, RDW Std Deviation 59.0 H, RDW Coeff of Natalie 14.6, Plt Count 191, MPV 8.8, Immature Gran % (Auto) 0.400, Neut % (Auto) 66.8, Lymph % (Auto) 19.6, [place] % (Auto) 8.9, Eos % (Auto) 3.0, Baso % (Auto) 1.3 H, Absolute Neuts (auto) 1.6 L, Absolute Lymphs (auto) 0.46 L, Nucleated RBC % 0, Differential Comment SEE COMMENT, Diff Path Review May foll, Platelet Estimate ADEQUATE, RBC Morphology N CHROM, Anisocytosis 1+, Macrocytosis 1+ 02/24/22 16:20: Sodium 140, Potassium 4.3, Chloride 106, Carbon Dioxide 31.0, Anion Gap 3 L, BUN 18, Creatinine 0.96, Estim Creat Clear Calc 42.06, Est GFR (MDRD) Af Amer 72, Est GFR (MDRD) Non-Af 59 L, BUN/Creatinine Ratio 18.7, Glucose 134 H, Calcium 9.3 Micro: Microbiology 02/24/22 16:20 Nasal Secretion SARS-CoV-2 Antigen (Rapid) - Final Assessment & Plan Assessment/Plan (1) Gastroenteritis: PLAN: Plan The patient is an 81 y/o F w/ PMHx: PAF, Hx Metastatic Breast CA s/p mastectomy L breast as well as gamma knife treatment with last chemotherapy ~ 5 years prior transitioned to oral regimen and monthly injections following w/ Dr. Burkett, Hypothyroidism, Anxiety and Depression, HTN who presents to the [facility] ED on 02/24/22 secondary to sudden onset late afternoon explosive unrelenting diarrhea with no associated nausea, emesis, abdominal cramping/pain and denied black/tarry appearance but given ongoing and her signficant anxiety at taking care of herself in this state as she lives alone prompted her ED evaluation. #1. Acute intractable diarrhea, possible gastroenteritis complicated by failure to thrive in adult: Given patient lives alone and significant anxiety as well as debility she notes with potential fall risk will admit to medical surgical floor, continue to just hydration, obtain c diff, stool cx, trend CBC, CMP and correct any electrolyte abnormalities at present, allow diet as patient notes she is hungry and has never had any issues with nausea or emesis, if C. di fficile and enteric pathogens are negative will initiate loperamide regimen, maintain on fall precautions, case management/PT/OT consultations for discharge planning. #2. Hypertension, uncontrolled: Patient reports not having taken her evening metoprolol, will continue and add additional oral regimen if appropriate, as needed IV hydralazine in interim. #3. Hyperglycemia, mild: Admission glucose 134, possibly stress response, hemoglobin A1c requested be cautious. #4. Leukopenia, reduced ANC, lymphopenia: CBC with WC 2.4, hemoglobin 10.9, platelet 191, ANC 1.6 and evidence of lymphopenia, not necessarily consistent with neutropenia and appears to have been reduced in the past, suspect likely associated with her underlying cancer treatments and acute presentation, continue to trend. #5. Chronic anemia, normocytic prior, currently macrocytic: Patient's MCV is elevated 111.9 but in past primarily consistent with normocytic anemia, 04/05/2020 MCV 94.9, admission hemoglobin 10.9, baseline prior appears 10-12, stable, continue to trend, vitamin B12 and folic acid levels also requested as well as iron panel, ferritin as not on supplementation. #6. Anxiety and depression: We will continue patient home lorazepam as needed regimen however given history and interactions may benefit from consideration of SSRI. #7. Hypothyroidism: We will continue patient on Synthroid regimen. #8. Hx Metastatic Breast CA: Patient s/p mastectomy L breast as well as gamma knife treatment with last chemotherapy ~ 5 years prior transitioned to oral regimen and monthly injections following w/ Dr. Burkett, we will continue patient home anastrozole oral regimen and encourage continued outpatient oncology directed therapy and follow-up. #9. PAF: Not chronically anticoagulated, potentially secondary to history of breast cancer with anemia, will continue metoprolol regimen as noted. #10. DVT prophylaxis: SCDs, Lovenox. #11. CODE status: Patient HCPOA is her niece and living will is currently in place. Discussed CODE status at length including difference between FULL code, DNR-CCA and DNR-CC status. Following discussions about the differences in these status, requested Full Code status. Advanced Care Planning Face to Face Time: 16 minutes. Charges/Coding Visit Charges OBSV E&M: 12754 Initial observation care L3 Procedures Hospitalists Procedures: 74203 Advncd Care Plan 30 Min
[2022-02-24 20:13] VITALS: PULSE 89
[2022-02-24] MEDS: Metoprolol Tartrate 50 MG Tablet PO (20:13)
[2022-02-24] MEDS: Acetaminophen 325 MG Tablet 650 MG PO (20:13)
[2022-02-24 20:15] VITALS: BP 156/62; PULSE 89; RESP 16; TEMP 36.6; O2SAT 100
[2022-02-24 20:16] VITALS: BMI 29.5
[2022-02-24 21:17] LABS: Ferritin 49 ng/mL (8-252); Iron 77 ug/dL (50-170); Iron Binding Capacity,Total 345 ug/dL (250-450); Magnesium 2.1 mg/dL (1.6-2.6); PERCENT IRON SATURATION 22.3 % (15.0-55.0); Phosphorus 3.3 mg/dL (2.5-4.9)
[2022-02-24] MEDS: LORazepam 0.5 MG Tablet PO (22:13)
[2022-02-24 22:18] LABS: Vitamin B12 197 pg/mL (211-911)
[2022-02-24 22:40] VITALS: BP 124/70; PULSE 64; RESP 20; TEMP 36.5; O2SAT 96
[2022-02-25] VITALS (7 sets, daily range): BP systolic 132–154; BP diastolic 56–75; PULSE 72–77; RESP 17–20; TEMP 36.5–36.8; O2SAT 94–98
[2022-02-25] MEDS: Acetaminophen 325 MG Tablet 650 MG PO ×2 (01:37→08:22)
[2022-02-25] MEDS: 0.9% Saline Lock 10 ML Syringe IV (01:38)
[2022-02-25] MEDS: Levothyroxine 100 MCG Tablet PO (04:20)
[2022-02-25 06:03] LABS: Absolute Lymphocyte Count 0.62 X10^3/uL (0.83-4.51); Absolute Neutrophil Count 1.1 X10^3/uL (2.0-7.7); Basophil# 0.03 X10^3/uL; Basophil% 1.5 % (0-1); Eosinophil# 0.11 X10^3/uL; Eosinophils% 5.4 % (0-5); Hemoglobin 10.3 g/dL (12.0-15.0); Lymphocyte # 0.62 X10^3/ul (0.83-4.51); Lymphocyte % 30.5 % (19-41); Mean Corp Hgb Conc 33.2 g/dL (32-36); Mean Corpuscular Hgb 37.3 pg (27.0-32.0); Mean Corpuscular Volume 112.3 fL (81-99); Mean Platelet Vol. 8.8 fl (6.2-12.0); Monocyte# 0.19 X10^3/uL; Monocyte% 9.4 % (0-10); NRBC Flagged by Analyzer 0 % (0-5); Neutrophil # 1.08 X10^3/uL (2.7-7.7); Neutrophil % 53.2 % (47-70); POSITIVE MORPHOLOGY YES; Platelet Count 160 K/mm3 (150-450); RBC Distribution Width CV 14.4 % (11.6-14.6); RBC Distribution Width SD 59.4 fl (35.1-43.9); Red Blood Count 2.76 M/mm3 (4.2-5.4)
[2022-02-25 06:10] LABS: Differential Indicated SCAN CRITERIA MET
[2022-02-25 06:18] LABS: Macrocytosis 2+
[2022-02-25 06:30] LABS: AST(SGOT) 15 U/L (15-37); Alanine Aminotransfer ALT/SGPT 15 U/L (13-56); Alkaline Phosphatase 54 U/L (45-117); Anion Gap 5 (5-15); BUN 13 mg/dL (7-18); BUN/Creat Ratio 19.1 RATIO (10-20); Calcium,Total 8.6 mg/dL (8.5-10.1); Chloride 109 mmol/L (98-107); Creatinine, Serum 0.68 mg/dL (0.55-1.02); EST Glomerular Filtration Rate 88 mL/min (>60); Est Glom Filt Rate - Afr Amer 107 mL/min (>60); Estimated Creatinine Clearance 38.75 ml/min; Globulin 2.9 g/dL (2.2-4.2); Glucose 94 mg/dL (74-106); Potassium 3.9 mmol/L (3.5-5.1); Protein, Total 5.9 g/dL (6.4-8.2); Sodium Level 141 mmol/L (136-145)
[2022-02-25 07:22] LABS: Hemoglobin A1c 5.5 % (3.8-5.6)
--- NOTE | 2022-02-25 07:55 | PCM.PN.HOSP ---
Subjective Subjective Patient is an 81-year-old lady with history of breast CA status postmastectomy with subsequent chemo currently under the care of Dr. Burkett presented to the emergency department with explosive diarrhea. An assessment of acute gastroenteritis made admitted to the regular nursing floor for further management Objective Data Objective Data Vital Signs: Vital Signs Temp Pulse Resp BP Pulse Ox O2 Del Method 97.7 F L 72 20 H 150/75 H 96 Room Air 02/25/22 04:17 02/25/22 04:17 02/25/22 04:17 02/25/22 04:17 02/25/22 04:17 02/25/22 04:17 Oxygen Delivery Method Room Air Weight: 77.9 kg Body Mass Index (BMI) 29.5 Intake & Output: Intake and Output for Last 24 Hours 02/23/22 02/24/22 02/25/22 23:59 23:59 23:59 Intake Total 1000 / 1200 700 / 700 Output Total 400 / 400 Balance 1000 / 1200 300 / 300 Lab / Micro Data Result Diagrams: 02/25/22 05:40 02/25/22 05:40 Labs: Laboratory Results - last 24 hr 02/24/22 16:20: WBC 2.4 L, RBC 2.95 L, Hgb 10.9 L, Hct 33.0 L, MCV 111.9 H, MCH 36.9 H, MCHC 33.0, RDW Std Deviation 59.0 H, RDW Coeff of Natalie 14.6, Plt Count 191, MPV 8.8, Immature Gran % (Auto) 0.400, Neut % (Auto) 66.8, Lymph % (Auto) 19.6, [place] % (Auto) 8.9, Eos % (Auto) 3.0, Baso % (Auto) 1.3 H, Absolute Neuts (auto) 1.6 L, Absolute Lymphs (auto) 0.46 L, Nucleated RBC % 0, Differential Comment SEE COMMENT, Diff Path Review May foll, Platelet Estimate ADEQUATE, RBC Morphology N CHROM, Anisocytosis 1+, Macrocytosis 1+ 02/24/22 16:20: Sodium 140, Potassium 4.3, Chloride 106, Carbon Dioxide 31.0, Anion Gap 3 L, BUN 18, Creatinine 0.96, Estim Creat Clear Calc 42.06, Est GFR (MDRD) Af Amer 72, Est GFR (MDRD) Non-Af 59 L, BUN/Creatinine Ratio 18.7, Glucose 134 H, Calcium 9.3 02/24/22 16:20: Phosphorus 3.3, Magnesium 2.1, Iron 77, TIBC 345, Iron Saturation 22.3, Ferritin 49, Folate 4.00 02/24/22 20:00: Vitamin B12 197 L 02/25/22 05:40: WBC 2.0 L, RBC 2.76 L, Hgb 10.3 L, Hct 31.0 L, MCV 112.3 H, MCH 37.3 H, MCHC 33.2, RDW Std Deviation 59.4 H, RDW Coeff of Natalie 14.4, Plt Count 160, MPV 8.8, Immature Gran % (Auto) 0.000, Neut % (Auto) 53.2, Lymph % (Auto) 30.5, [place] % (Auto) 9.4, Eos % (Auto) 5.4 H, Baso % (Auto) 1.5 H, Absolute Neuts (auto) 1.1 L, Absolute Lymphs (auto) 0.62 L, Nucleated RBC % 0, Macrocytosis 2+ 02/25/22 05:40: Sodium 141, Potassium 3.9, Chloride 109 H, Carbon Dioxide 27.0, Anion Gap 5, BUN 13, Creatinine 0.68, Estim Creat Clear Calc 38.75, Est GFR (MDRD) Af Amer 107, Est GFR (MDRD) Non-Af 88, BUN/Creatinine Ratio 19.1, Glucose 94, Calcium 8.6, Total Bilirubin 0.40, AST 15, ALT 15, Alkaline Phosphatase 54, Total Protein 5.9 L, Albumin 3.0 L, Globulin 2.9, Albumin/Globulin Ratio 1.0 02/25/22 05:40: Hemoglobin A1c 5.5 Micro: Microbiology 02/24/22 16:20 Nasal Secretion SARS-CoV-2 Antigen (Rapid) - Final Physical Exam Narrative GENERAL: cooperative HEENT: Atraumatic; EYES; Anicteric, Normal Conjunctiva NECK; supple, normal thyroid, RESPIRATORY: Diminished to auscultation CARDIOVASCULAR: Regular S1 S2, GI: soft, normoactive bowel sounds, : No Renal angle tenderness; EXTREMITIES: No edema, no clubbing, MUSCULOSKELETAL: no muscle wasting NEURO: Awake; no lateralizing signs. SKIN: No Rash PSYCH; Flat affect Assessment & Plan Assessment/Plan (1) Gastroenteritis: PLAN: Plan Patient is an 81-year-old lady with history of breast CA status postmastectomy with subsequent chemo currently under the care of Dr. Burkett presented to the emergency department with explosive diarrhea. An assessment of acute gastroenteritis made admitted to the regular nursing floor for further management 1. Acute viral gastroenteritis with norovirus ? Patient has been admitted to regular nursing floor for symptomatic management with IV fluids, antinausea medication stool studies including enteric bacteriology came back positive for norovirus stool for C. difficile came back negative 2. Physical deconditioning - Requested for PT OT eval and director of social work to assist with discharge planning 3. Anemia - Secondary to chronic disorder monitoring H&H and transfuse if patient becomes symptomatic or hemoglobin falls below 7 4. Hypothyroidism - Patient is on levothyroxine home dose continued 5. History of breast CA ? Status post left breast mastectomy with subsequent chemotherapy. Patient currently on Ibrance 125 mcg daily 6. Hypertension - Blood pressure controlled, home medications continued with dose adjustment as needed 7. Paroxysmal atrial fibrillation ? Rate controlled on beta-blockers. Patient not on systemic anticoagulation 8. Depression with anxiety ? on Lorazepam as needed 9. DVT prophylaxis ? SC Lovenox Charges/Coding Visit Charges OBSV E&M: 11923 Subsequent observation care L2
[2022-02-25] MEDS: Metoprolol Tartrate 50 MG Tablet PO (08:22)
--- NOTE | 2022-02-25 09:51 | PCM.DC.SUM ---
Providers Date of Admission: 02/24/22 Date of Discharge: 02/25/22 Primary Care Physician: Dr. Floridalma Torres MD Reason For Visit: FTT ADULT, DIARRHEA Diagnosis Discharge Diagnosis (1) Gastroenteritis: Status: Acute Code(s): K52.9 - Noninfective gastroenteritis and colitis, unspecified Plan Patient is an 81-year-old lady with history of breast CA status postmastectomy with subsequent chemo currently under the care of Dr. Burkett presented to the emergency department with explosive diarrhea. An assessment of acute gastroenteritis made admitted to the regular nursing floor for further management 1. Acute viral gastroenteritis with norovirus ? Patient has been admitted to regular nursing floor for symptomatic management with IV fluids, antinausea medication stool studies including enteric bacteriology came back positive for norovirus stool for C. difficile came back negative 2. Physical deconditioning - Requested for PT OT eval and social media developer to assist with discharge planning 3. Anemia - Secondary to chronic disorder monitoring H&H and transfuse if patient becomes symptomatic or hemoglobin falls below 7 4. Hypothyroidism - Patient is on levothyroxine home dose continued 5. History of breast CA ? Status post left breast mastectomy with subsequent chemotherapy. Patient currently on Ibrance 125 mcg daily 6. Hypertension - Blood pressure controlled, home medications continued with dose adjustment as needed 7. Paroxysmal atrial fibrillation ? Rate controlled on beta-blockers. Patient not on systemic anticoagulation 8. Depression with anxiety ? on Lorazepam as needed 9. DVT prophylaxis ? SC Lovenox Medications at Discharge Home Medications lorazepam 0.5 mg tablet 0.5 mg PO TID PRN PRN Anxiety 07/14/13 metoprolol tartrate 50 mg tablet 50 mg PO BIDCM HEART 07/14/13 acetaminophen 500 mg tablet 1,000 mg PO TID PRN Pain 08/12/18 levothyroxine 100 mcg tablet 100 mcg PO DAILY thyroid 08/12/18 dorzolamide 2 %-timolol 0.5 % (PF) eye drops 1 drp EACH EYE BID eye 11/24/19 latanoprost 0.005 % eye drops 1 drp EACH EYE QHS eye 11/24/19 palbociclib 125 mg tablet (Ibrance) 125 mg PO DAILY cancer 02/24/22 Hospital Course Summary of Care Provided Minutes Spent on Discharge: 35 Physical Exam Narrative GENERAL: cooperative HEENT: Atraumatic; EYES; Anicteric, Normal Conjunctiva NECK; supple, normal thyroid, RESPIRATORY: Diminished to auscultation CARDIOVASCULAR: Regular S1 S2, GI: soft, normoactive bowel sounds, : No Renal angle tenderness; EXTREMITIES: No edema, no clubbing, MUSCULOSKELETAL: no muscle wasting NEURO: Awake; no lateralizing signs. SKIN: No Rash PSYCH; Flat affect Weight / BMI Weight Weight: 77.9 kg Body Mass Index (BMI) 29.5 ABG / Lab / Microbiology Data Result Diagrams: 02/25/22 05:40 02/25/22 05:40 Laboratory: Laboratory Results - last 24 hr 02/24/22 16:20: WBC 2.4 L, RBC 2.95 L, Hgb 10.9 L, Hct 33.0 L, MCV 111.9 H, MCH 36.9 H, MCHC 33.0, RDW Std Deviation 59.0 H, RDW Coeff of Natalie 14.6, Plt Count 191, MPV 8.8, Immature Gran % (Auto) 0.400, Neut % (Auto) 66.8, Lymph % (Auto) 19.6, [place] % (Auto) 8.9, Eos % (Auto) 3.0, Baso % (Auto) 1.3 H, Absolute Neuts (auto) 1.6 L, Absolute Lymphs (auto) 0.46 L, Nucleated RBC % 0, Differential Comment SEE COMMENT, Diff Path Review October, Platelet Estimate ADEQUATE, RBC Morphology N CHROM, Anisocytosis 1+, Macrocytosis 1+ 02/24/22 16:20: Sodium 140, Potassium 4.3, Chloride 106, Carbon Dioxide 31.0, Anion Gap 3 L, BUN 18, Creatinine 0.96, Estim Creat Clear Calc 42.06, Est GFR (MDRD) Af Amer 72, Est GFR (MDRD) Non-Af 59 L, BUN/Creatinine Ratio 18.7, Glucose 134 H, Calcium 9.3 02/24/22 16:20: Phosphorus 3.3, Magnesium 2.1, Iron 77, TIBC 345, Iron Saturation 22.3, Ferritin 49, Folate 4.00 02/24/22 20:00: Vitamin B12 197 L 02/25/22 05:40: WBC 2.0 L, RBC 2.76 L, Hgb 10.3 L, Hct 31.0 L, MCV 112.3 H, MCH 37.3 H, MCHC 33.2, RDW Std Deviation 59.4 H, RDW Coeff of Natalie 14.4, Plt Count 160, MPV 8.8, Immature Gran % (Auto) 0.000, Neut % (Auto) 53.2, Lymph % (Auto) 30.5, [place] % (Auto) 9.4, Eos % (Auto) 5.4 H, Baso % (Auto) 1.5 H, Absolute Neuts (auto) 1.1 L, Absolute Lymphs (auto) 0.62 L, Nucleated RBC % 0, Macrocytosis 2+ 02/25/22 05:40: Sodium 141, Potassium 3.9, Chloride 109 H, Carbon Dioxide 27.0, Anion Gap 5, BUN 13, Creatinine 0.68, Estim Creat Clear Calc 38.75, Est GFR (MDRD) Af Amer 107, Est GFR (MDRD) Non-Af 88, BUN/Creatinine Ratio 19.1, Glucose 94, Calcium 8.6, Total Bilirubin 0.40, AST 15, ALT 15, Alkaline Phosphatase 54, Total Protein 5.9 L, Albumin 3.0 L, Globulin 2.9, Albumin/Globulin Ratio 1.0 02/25/22 05:40: Hemoglobin A1c 5.5 Microbiology: Microbiology 02/24/22 16:20 Nasal Secretion SARS-CoV-2 Antigen (Rapid) - Final D/C Instructions Discharge Diet: No restrictions Discharge Activity: Return to Normal Activity Call your doctor if you observe: Fever of 101 or Higher, Shortness of breath, Fainting spells and Chest pain Meaningful Use Info Meaningful Use Diagnoses (Choose all that apply): None applicable Discharge Plan Admission Admit Date/Time: 02/24/22 18:26 Attending Provider: Robert Deras Primary Care Provider: Floridalma Torres Consulting Providers: Mariama Arvizu Discharge Orders/Prescriptions Prescriptions: Continued lorazepam 0.5 MG tablet 0.5 mg PO TID PRN PRN (Reason: Anxiety) Label Comments: ANXIETY metoprolol tartrate 50 MG tablet 50 mg PO BIDCM Label Comments: TAKES IN AM AND WITH SUPPER acetaminophen 500 MG tablet 1,000 mg PO TID PRN (Reason: Pain) levothyroxine 100 MCG tablet 100 mcg PO DAILY latanoprost 1 DROP bottle 1 drp EACH EYE QHS dorzolamide-timolol (PF) 10 ML drops 1 drp EACH EYE BID Ibrance 125 mg tablet 125 mg PO DAILY Referrals / Follow Up: Floridalma Torres MD [Primary Care Provider] - Within 1 Week Ky Burkett DO [Med Staff - Active Staff] - In 1 Week Disposition Disposition (needs filled in before D/C Order can be placed): Home, Self Care Charges/Coding Visit Charges OBSV E&M: 14112 Observation care discharge
[2022-02-25] MEDS: Dorzolamide HCL/Timolol 10 ml Bottle 1 DRP EACH EYE (10:17)
--- NOTE | 2022-02-25 10:50 | CASEMGMT ---
Addendum entered by Skye Stephens 02/25/22 13:10: DESHAWN ESTEVEZ back into pt room after she ambulated. Pt states she did well. She is agreeable to returning home with her hot braider as needed and [employer]. She states she does not know when her aide can transport her home but it will be yet today. Denies further needs. Original Note: DESHAWN ESTEVEZ Assessment: Face to Face with pt for initial transition planning/care coordination assessment. DESHAWN ESTEVEZ introduced self and role at [facility], pt voices understanding and consents to assessment. Pt is A/O x4 and answers all questions appropriately at this time. Care providers, pharmacy, and demographics verified/updated. Pt sitting up in bed in no distress. Admitting Dx: FTT adult, diarrhea PCP:Melissa Specialists:alex Ventura; kristie Burkett Preferred Pharmacy: [facility] Retail Insurance: ALBA Humphries Prescription Benefit: yes LNOK: Martha Abreu, niece; Elizabeth Stevenson, sister Living Arrangements: Pt lives alone in a ground level apartment with 1 step to enter. Pt reports she typically has a hot braider to assist with bathing and she is able to cook and dress self. The aide also provides out of town transportation and cleaning. Transportation: Pt drives self and denies concerns with transportation. DME/HHC/SNF: Pt has a FWW that she uses sometimes and a cane. Pt denies any skilled HHC and has been to [facility]. Pt states she needs to walk before she goes home. Noted 6 clicks, spoke with patient nurse and asked MOLDED GOODS CONTROLS OPERATOR to ambulate patient. Pt states she goes to [employer] and has a personal injury attorney 3x/wk. Pt has not had diarrhea since in hospital. Pt is not homebound for HHC, discussed requirements with her for this. Pt states no further concerns/needs. CM to follow. Advised pt to ask CM if any further question/concerns/needs arise, voices understanding. Pt Goal: Home Plan: TBD
--- NOTE | 2022-02-25 11:22 | NURSING ---
1020- RN went to patient's room to discuss plan of care and that a discharge order had been placed. Pt very adamant that she is not well enough to go home on her own. DESHAWN Woo charge nurse notified and case management notified.
[2022-02-25 12:00] LABS: Pathologist Review Reviewed
== END 2022-02-25 14:58 | disposition home or self-care (01) ==
LOC: ED 18:06 → MS3 18:39
PROVIDERS: Admitting Provider Family Medicine; Emergency Provider Emergency Medicine; PCP Internal Medicine; Visit Provider Internal Medicine
DX: A08.11 Acute gastroenteropathy due to Norwalk agent (principal); I48.0 Paroxysmal atrial fibrillation; F32.A Depression, unspecified; F41.9 Anxiety disorder, unspecified; E03.9 Hypothyroidism, unspecified; I10 Essential (primary) hypertension; Z79.899 Other long term (current) drug therapy; Z79.890 Hormone replacement therapy; Z85.3 Personal history of malignant neoplasm of breast
CPT/HCPCS: 36415; 80048; 80053; 82607; 82728; 82746; 83036; 83540; 83550; 83735; 84100; 85025; 87811; 96360; 96361; 99218; 99284; A4216; G0378

== ENCOUNTER 2022-03-22 10:43 | Outpatient (RCR) | payer BC, SELFPAY ==
--- NOTE | 2022-03-22 12:51 | HP.PTEVAL_ITS ---
Patient's Visit Information JORGE LUIS BARRERA is a 81 year old F referred to Physical Therapy by Dr. Ky Luis DO with a diagnosis of LUMBAR SPINAL STENOSIS. Date of Evaluation: 03/22/22 Physical Therapist: India Gallegos PT, Cert MDT - Visit Plan Frequency: 2-3x /Week Duration: 4-6 Weeks Plan: PATIENT MAY NEED TO CONSIDER HOME HEALTH SERVICES. GAIT AND BALANCE TRAINING. POSTURE CORRECTION/STRENGTHENING, INSTRUCTION IN APPROPRIATE BODY MECHANICS AND ACTIVITY MODIFICATIONS. DLS STARTING WITH A NEUTRAL SPINE PROGRESSING ROM TOLERATED. OZZIE LE ROM, STRETCHING AND STRENGTHENING. HEP INSTRUCTION. - Subjective Work/Leisure: RETIRED. Present symptoms: OZZIE LOW BACK/BUTTOCK AND HS PAIN - LEFT > RIGHT. RIGHT HIP PAIN. OZZIE FOOT AND TOE NUMBNESS SINCE 2016. Present since: CHRONIC LOW BACK PAIN BUT INCREASED AFTER RECENT FALL SEPTEMBER 02 2019 AND PATIENT HAS FALLEN SINCE THEN WITH LAST FALL BEING NOVEMBER OF 2021. SHE REPORTS SHE WAS DOWNTOWN AND FELL ON SIDEWALK. Pain Scale: WORST 10/10, LEAST 3/10. Currently: 4/10. LEFT LOW LOW BACK/HIP/BUTTOCK/HS PAIN IS GETTING WORSE AND MAKING IT HARDER TO MOVE AND WALK. RIGHT ANKLE PAIN CAN ALSO GET UP TO 9/10. SHE REPORTS HER FEET ARE SWOLLEN AND STIFF TOO. Commenced as a result of: FALL AND SPINAL STENOSIS. Symptoms at onset: L LB/HIP/BUTTOCK/HAMSTRING Worse: WALKING, STANDING, MOVING ON SOFA, DRIVING, SOMETIMES SITTING, CAN'T LAY IN BED SINCE NOVEMBER 2021. Better: TYLONOL HELPS OTHER PAIN BUT NOT LEFT HS PAIN. Disturbed sleep: YES Previous history/Previous treatment: MASSAGE THERAPY FOR LOW BACK IN THE PAST. CURRENTLY HELPS FEET. Treatment this episode: REST, TYLONOL, WALKER TO TAKE THE PRESSURE OF BACK AND HIPS. Coughing/sneezing/straining: POSITIVE Gait: VERY TIME AND DISTANCE LIMITED. STILL USING WALKER OCCASSIONALLY. 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 DROVE HERSELF TO PT TODAY. BOWEL OR BLADDER INCONTINENCE: MILD URINE LEAKING ONLY. Accidents: FALLS. Unexplained weight loss: NO. Imaging: LOW BACK MRI 02/28/22 - SUBACUTE TO CHRONIC L1 FRACTURE. SIMILAR MILD L5 DEFORMITY WHICH COULD REPRESENT UNDERLYING METASTASIS. ADVANCED SPNDYLOSIS AND L4-5 SEVERE SPINAL CANAL STENOSIS WHICH HAS PROGRESSED SINCE SINCE MRI 04/07/22. 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 RADIATION AND CHEMO TREATMENTS. ALSO HAD 2 WKS OF RADIATION L5 REGION ABOUT JUL 2021. HTN. OSTEOPOROSIS. LEFT ELBOW FX. LEFT KNEE MENISCUS TEAR. OTHER: PATIENT REFUSES TO LIE ON BACK TODAY - I'M NOT GOING TO PUT MYSELF THEROUGH THAT. OTHER: PATIENT REPORTS THAT WHEN SHE SAW DR. LUIS ABOUT A WK AGO SHE WAS OF ABOUT THE SAME MOBILITY THEN NOW. PATIENT REPORTS THE PAIN IS REALLY DEBILITATIING RIGHT NOW (ESPECIALLY LEFT LB/LE SX'S BUT ALONG WITH ALL OTHER PAIN). - Objective Sitting/Standing Posture: POOR. INCREASED KYPHOSIS. Lordosis: REDUCED. Active Correction of posture: WORSE Other Observations: PATIENT WAS FOUND SITTING IN LOBBY TODAY AND ASKED TO BE BROUGHT BACK TO PT IN A W/C. PATIENT ABLE TO INDEP'LY TRANSFER FROM LOBBY CHAIR TO W/C, FROM W/C TO TREATMENT ROOM CHAIR AND BACK TO W/C TAKING JUST 2-3 STEPS WHILE BENT FORWARD AND USING UE ASSIST ON CHAIR AND W/C ARMS THROUGOUT TRANSFER. Motor deficit: OZZIE LE'S GROSSLY 4-/5 WITH MMT'ING. Sensory deficit: DECREASED LEFT LEG/FOOT LIGHT TOUCH COMPARED TO RIGHT WITH TESTING. PATIENT REPORTS SHE HAS HAD THIS SINCE THE CHEMO. ROM deficit: PATIENT ABLE TO FULLING EXTEND BOTH KNEES IN SITING BUT C/O LEFT HS PAIN WITH TESTING. OZZIE ANKLE ROM WFL. TIGHT OZZIE HIP ROM OZZIE BUT TESTING LIMITED DUE TO PAIN. PATIENT ABLE TO FLEX BOTH HIPS TO AT LEAST 100 DEG. Dural Signs: Lumbar mvmt loss: NT DUE TO PATIENT REFUSING FEELING SHE IS UNABLE. PATIENT REALLY DECLINED FURTHER TESTING DUE TO BEING IN SO MUCH PAIN. THIS PT DISCUSSED HOME HEALTH A POSSIBLE OPTION AND SHE WILL CALL DR. LUIS'S NURSE TO DISCUSS. SHE REPORTS REQUESTING HOME HEALTH SERVICES IN THE PAST (NOT RECENTLY) AND WAS TOLD SHE DIDN'T QUALIFY. *THIS PT WAS ABLE TO REACH DR. LUIS'S NURSE DAISY APPROX 12:40PM TODAY TO UPDATE THEM ON HER CURRENT DIFFICULTY WALKING AND PAIN. INQUIRED ABOUT POSSIBLE BENEFITS OF HOME HEALTH SERVICES FOR PATIENT. - Balance/Special Test Scores Oswestry Low Back Score: 39 - Goals Goal 1:: DECREASE C/O LOW BACK AND OZZIE LE PAIN Goal Time Frame: 4-6 Weeks Goal 2:: IMPROVE PERSONAL CARE, LIFTING, WALKING, SITTING, STANDING, SLEEP, SOCIAL LIFE, TRAVEL AND HOMEMAKING FUNCTION Goal Time Frame: 4-6 Weeks Goal 3:: INSTRUCT IN PROPHYLAXIS Goal Time Frame: 4-6 Weeks - Anticipated Interventions Patient/Client Instruction: Educate patient on: Condition, Plan of Care, Risk Factors For the Purpose of:: To improve self management Therapeutic Exercise to Include: Strength training, Endurance training, Balance training, Body mechanics, Postural training, Flexibilty training, Gait and locomotor training, Neuromotor development, Dynamic Lumbar Stabilization For the Purpose of:: To decrease pain, To increase ROM, To improve muscle performance and motor function, To increase tolerance to activity/condition/position, To improve ability of physical actions for home/community/work/leisure, To improve gait and locomotor functions Thank you for the opportunity to evaluate your patient. For Medicare and Medicare HMO plans, please review the plan of care and approve it. It will need to be FAXED BACK to us at [phone] for Medicare purposes. For Medicare only, by signing this I certify the plan of care. Please let me know if there are questions or concerns regarding this plan of care. Physician Signature: Date:
--- NOTE | 2022-03-29 09:53 | HP.PTDCNRP_ITS ---
JORGE LUIS BARRERA was seen in my office for initial evaluation on 03/22/22. The following Plan of Care was established for this patient: Initial Frequency: 2-3x /Week Initial Duration: 4-6 Weeks Patient/Client Instruction: Educate patient on: Condition, Plan of Care, Risk Factors For the Purpose of:: To improve self management Therapeutic Exercise to Include: Strength training, Endurance training, Balance training, Body mechanics, Postural training, Flexibilty training, Gait and locomotor training, Neuromotor development, Dynamic Lumbar Stabilization For the Purpose of:: To decrease pain, To increase ROM, To improve muscle performance and motor function, To increase tolerance to activity/condition/position, To improve ability of physical actions for home/community/work/leisure, To improve gait and locomotor functions This patient was last seen in our office . Pertinent comments regarding their Physical therapy will appear below: PATIENT IS IN THE HOSPITAL AND PLANS TO GO TO A REHAB, INTERMEDIATE OR ASSISTED LIVING TYPE ENVIRONMENT AT DISCHARGE. At this point I will be discontinuing this patient from physical therapy. I would be happy to see this patient again in the future if found appropriate by the physician. Thank you! India Gallegos, PT, Cert MDT Balance/Gait/Functional tests - Balance/Special Test Scores Oswestry Low Back Score: 39
== END 2022-03-22 19:00 | disposition home or self-care (01) ==
LOC: PT 10:43
PROVIDERS: PCP Internal Medicine; Referring Provider Internal Medicine Hematology & Oncology; Visit Provider Internal Medicine Hematology & Oncology
DX: C50.812 Malignant neoplasm of overlapping sites of left female breast (principal); Z17.0 Estrogen receptor positive status [ER+]; M48.061 Spinal stenosis, lumbar region without neurogenic claudication
CPT/HCPCS: 97162

== ENCOUNTER 2022-03-28 13:29 | Inpatient (IN) | payer MEDICARE, BC, SELFPAY ==
[2022-03-28 13:30] VITALS: BP 139/74; PULSE 72; RESP 16; TEMP 36.3; O2SAT 98; BMI 29.2
--- NOTE | 2022-03-28 15:50 | ED.VIS.BACK ---
HPI History of Present Illness Chief Complaint: Back Informant: patient Narrative Narrative: Patient presents secondary to worsening chronic back pain. She has a history of spinal stenosis. She states she has been trying to work with physical therapy but over the past several weeks her pain has worsened. She has not been able to lie in a bed for the past 5 weeks and has been sleeping in a chair. She states the pain has become bad enough that she is afraid to stay alone and feels that she needs to go to assisted living. She denies any recent fall, last being in late October or early November. She had an open MRI of her lumbar spine in late February that she states showed no evidence of cancer (history of breast cancer) but did have spinal stenosis. [facility] Medical History History of breast cancer History of pericardial effusion History of viral pericarditis Hypothyroidism PAF (paroxysmal atrial fibrillation) Home Medications lorazepam 0.5 mg tablet 0.25 mg PO BID PRN PRN Anxiety 07/14/13 [History Last Taken 03/28/22 00:00] metoprolol tartrate 50 mg tablet 50 mg PO BIDCM HEART 07/14/13 [History Last Taken 03/28/22] acetaminophen 500 mg tablet 1,000 mg PO TID PRN Pain 08/12/18 [History Last Taken 03/28/22] levothyroxine 100 mcg tablet 100 mcg PO DAILY thyroid 08/12/18 [History Last Taken 03/28/22 04:00] dorzolamide 2 %-timolol 0.5 % (PF) eye drops 1 drp EACH EYE BID eye 11/24/19 [History Last Taken 03/28/22] latanoprost 0.005 % eye drops 1 drp EACH EYE QHS eye 11/24/19 [History Last Taken 03/27/22 20:30] palbociclib 125 mg tablet (Ibrance) 125 mg PO DAILY cancer 02/24/22 [History Last Taken 03/27/22 12:30] Allergy/AdvReac Type Severity Reaction Status Date / Time shellfish derived Allergy Hives Verified 03/28/22 13:30 tetracycline [Tetracycline] Allergy pt unsure Verified 03/28/22 13:30 alcohol AdvReac Unknown Verified 03/28/22 13:30 promethazine [From Phenergan] AdvReac Other Verified 03/28/22 13:30 Family History Father Diabetes Hypertension CVA (cerebral vascular accident) Sister Asthma Diabetes Hypertension Arthritis Osteoporosis Lung disease Surgical History History of modified radical mastectomy of left breast S/P breast biopsy S/P pericardial surgery Status post gamma knife treatment Social History Smoking Status: Former smoker second hand exposure: No alcohol intake: never substance use type: does not use what type of physical activity do you participate in: none frequency: does not exercise seatbelt use: always ROS ROS ED Constitutional Constitutional ED: Denies chills or fever(s) Eyes Eyes: Denies change in vision or discharge from eye(s) ENT ENT ED: Denies discharge from eye(s), rhinorrhea or sore throat Cardiovascular Cardiovascular: Denies chest pain or palpitations Respiratory/Chest Respiratory/Chest: Denies cough or dyspnea Gastrointestinal Gastrointestinal: Denies abdominal pain, diarrhea, nausea or vomiting Genitourinary Genitourinary ED: Denies difficulty urinating or dysuria Musculoskeletal Musculoskeletal: Reports back pain and extremity pain Integumentary Denies Abrasions or rash Neurologic Neurologic: Denies headache(s) or weakness Psychiatric Psychiatric: Denies anxiety or depression Allergic/Immunologic Allergic/Immunologic ED: Denies lip swelling or urticaria EXAM Physical Exam Narrative Exam Narrative: Patient sitting in bedside chair no acute distress. Const Vital Signs: 03/28/22 13:30 03/28/22 18:21 03/28/22 18:45 Temperature 97.4 F L 97.4 F L 97.7 F L Temperature Source Temporal Temporal Temporal Pulse Rate 72 72 75 Respiratory Rate 16 16 16 Blood Pressure 139/74 H 139/74 H 134/76 H Blood Pressure Mean 95 95 95 Blood Pressure Source Monitor Blood Pressure Position Semi-Fowlers Blood Pressure Location Right Arm Pulse Ox 98 98 97 Oxygen Delivery Method Room Air Room Air Room Air Positive well nourished and well developed General Appearance ED: well developed HEENT Reports moist mucous membranes Eyes PERRL and EOMs intact bilaterally Neck no lymphadenopathy Resp normal respiratory effort and clear to auscultation bilaterally Cardio regular rate and regular rhythm GI normal to inspection, nondistended, normoactive bowel sounds Back/Spine normal to inspection Back/Spine Narrative: Mild tenderness in the lower lumbar paraspinals. Extremity normal to inspection Neuro oriented x3 Neuro Narrative: No focal neurologic deficits. Psych mental status grossly normal Skin no rashes or lesions noted MDM MDM MDM Narrative Medical decision making narrative: Patient was given a small dose of fentanyl for pain. Lab work and lumbar spine x-rays were obtained for admission and placement purposes. Lab Data Attestation: I reviewed the patient's lab results. Labs: Laboratory Results - last 24 hr 03/28/22 03/28/22 16:01 16:01 WBC 2.1 L RBC 3.02 L Hgb 11.5 L Hct 33.8 L MCV 111.9 H MCH 38.1 H MCHC 34.0 RDW Std Deviation 58.4 H RDW Coeff of Natalie 14.3 Plt Count 152 MPV 9.1 Immature Gran % (Auto) 0.000 Neut % (Auto) 51.2 Lymph % (Auto) 32.7 [place] % (Auto) 10.7 H Eos % (Auto) 3.9 Baso % (Auto) 1.5 H Absolute Neuts (auto) 1.1 L Absolute Lymphs (auto) 0.67 L Nucleated RBC % 0 Differential Comment SCANNED Sodium 143 Potassium 4.1 Chloride 106 Carbon Dioxide 31.0 Anion Gap 6 BUN 14 Creatinine 0.80 Estim Creat Clear Calc 48.43 Est GFR (MDRD) Af Amer 89 Est GFR (MDRD) Non-Af 74 BUN/Creatinine Ratio 17.6 Glucose 98 Calcium 9.7 Radiography Diagnostic Testing: Clinical Impression(s) from Imaging Studies Lumbar Spine X-Ray 03/28/22 16:15 IMPRESSION: Scoliosis and degenerative changes. Superior wedging of L1 and L5 of uncertain chronicity MRI or CT would be helpful for definitive evaluation if indicated Electronically Signed: Joaquin Gallagher MD at 16:35 EDT , Treatment and Re-Evaluation Narrative: X-rays per my interpretation reveal significant arthritic changes and spondylosis. Radiology interpretation reviewed. CBC reveals white count of 2.1 and hemoglobin 11.5. This appears consistent with her prior values. Chemistry studies unremarkable. COVID test is negative. Social work did speak with the patient. She now believes that she may need more prison placement for physical therapy. We are not able to get this arranged from the emergency room tonight. I will speak with hospitalist for observation and placement. Discharge Plan Dx/Rx/DC Orders Clinical Impression: Chronic back pain, Declining functional status Disposition Disposition: Acute Care Hospital [facility] Discharge Date/Time: 03/28/22 18:22
[2022-03-28] MEDS: fentaNYL 100 MCG/2 ML Ampul 25 MCG IV (15:59)
[2022-03-28 16:10] LABS: Absolute Lymphocyte Count 0.67 X10^3/uL (0.83-4.51); Absolute Neutrophil Count 1.1 X10^3/uL (2.0-7.7); Basophil# 0.03 X10^3/uL; Basophil% 1.5 % (0-1); Eosinophil# 0.08 X10^3/uL; Eosinophils% 3.9 % (0-5); Hematocrit 33.8 % (37-47); Hemoglobin 11.5 g/dL (12.0-15.0); Lymphocyte # 0.67 X10^3/ul (0.83-4.51); Lymphocyte % 32.7 % (19-41); Mean Corpuscular Hgb 38.1 pg (27.0-32.0); Mean Corpuscular Volume 111.9 fL (81-99); Mean Platelet Vol. 9.1 fl (6.2-12.0); Monocyte# 0.22 X10^3/uL; Monocyte% 10.7 % (0-10); NRBC Flagged by Analyzer 0 % (0-5); Neutrophil # 1.05 X10^3/uL (2.7-7.7); Neutrophil % 51.2 % (47-70); POSITIVE MORPHOLOGY YES; Platelet Count 152 K/mm3 (150-450); RBC Distribution Width CV 14.3 % (11.6-14.6); RBC Distribution Width SD 58.4 fl (35.1-43.9); Red Blood Count 3.02 M/mm3 (4.2-5.4); White Blood Count 2.1 K/mm3 (4.4-11.0)
[2022-03-28 16:11] LABS: Differential Indicated SCAN CRITERIA MET
--- NOTE | 2022-03-28 16:15 | RAD_ITS ---
STUDY: X-RAY - LUMBAR SPINE REASON FOR EXAM: Female, 81 years old. pain TECHNIQUE: 3 view(s) of the lumbar spine were obtained. COMPARISON: CT 09/08/2017 FINDINGS: Normal lumbar lordosis. There is moderate levo scoliosis. Grade 1 spondylolisthesis at L4-5. There is wedging of the superior endplates of L5 and L1 without well-defined fracture line of uncertain chronicity... Narrowed L3-4 and L4-5 disc spaces.. The soft tissue structures are unremarkable. Wedging of L5 and L1 are new since prior study August 2017 RAD/Lumbar Spine 2 or 3 Views IMPRESSION: Scoliosis and degenerative changes. Superior wedging of L1 and L5 of uncertain chronicity MRI or CT would be helpful for definitive evaluation if indicated Electronically Signed: Joaquin Gallagher MD at 16:35 EDT ,
[2022-03-28 16:27] LABS: Differential Comment SCANNED
[2022-03-28 16:32] LABS: Anion Gap 6 (5-15); BUN 14 mg/dL (7-18); BUN/Creat Ratio 17.6 RATIO (10-20); Calcium,Total 9.7 mg/dL (8.5-10.1); Chloride 106 mmol/L (98-107); EST Glomerular Filtration Rate 74 mL/min (>60); Est Glom Filt Rate - Afr Amer 89 mL/min (>60); Estimated Creatinine Clearance 48.43 ml/min; Glucose 98 mg/dL (74-106); Potassium 4.1 mmol/L (3.5-5.1); Sodium Level 143 mmol/L (136-145)
--- NOTE | 2022-03-28 17:44 | NURSING ---
MED SURG OBS JOPPERI BACK PAIN, FUNCTIONAL DECLINE
--- NOTE | 2022-03-28 17:44 | CM.ED ---
Addendum entered by Martha Fernandes 03/28/22 18:05: RICARDO sent email to RICARDO retail event and sales assistant and RICARDO Hood advising patient would like her [facility] choice [facility] and second choice is [facility]. Martha FISHER Original Note: RICARDO SILVA was advised by chain sales representative that patient stated she wants to go into the hospital for a few days and then go to [place]. RICARDO met with patient and she said I am going to [place] and no where else. RICARDO asked if patient has contacted [place] and she said no and that the hospital is supposed to do that. Patient said I am not safe at home as she is a 8/9 in pain. RICARDO called Jordyn at [place] and she confirmed it is private pay. RICARDO spoke to patient again and explained [place] is private pay. Patient said I have the money and said that her vice president financial would be happy she spent money. SW explained that she needs to speak to someone from [place] as they will want to know how she plans to pay. Patient said well, will they come here today. RICARDO explained that this typewriter tester does not know the schedule for [place] admission but this typewriter tester could give her the number for [place] staff. Patient said well, I am not calling her today.. it's 4 . Patient said I want to come in and stay a few days and then go . Patient said that she said she wanted to tell [place] about her requested room assignment.RICARDO again stated that with assisted living a patient can do that admission without a hospital stay and from the community. RICARDO explained that we are attempting to plan for patient. Patient voiced I thought the hospital would do this all for me. RICARDO remains available. RICARDO was advised by RN that patient wants to speak to this typewriter tester. Patient said that she has the money for [place] but when I thought about it I don't know how long I would need to be there. Patient said that she is open to SNF. RICARDO explained that with patient's insurance she will need precertification including MD Notes and PT /OT notes. RICARDO provided patient with list of SNF that are in network. Patient said that [facility] choice [facility] and 2nd choice is [facility]. RICARDO upated . Martha FISHER
[2022-03-28 18:21] VITALS: BP 139/74; PULSE 72; RESP 16; TEMP 36.3; O2SAT 98
[2022-03-28 18:39] VITALS: BMI 28.5
[2022-03-28 18:45] VITALS: BP 134/76; PULSE 75; RESP 16; TEMP 36.5; O2SAT 97
--- NOTE | 2022-03-28 18:59 | PCM.HP.STD ---
HPI - General General Date of Admission: 03/28/22 Date of Service: 03/28/22 Chief Complaint: back pain. unsteadiness HPI Narrative JORGE LUIS BARRERA, is a 81 F who presents with progressive back pain and also concerned about her wellbeing at home. A week ago, patient went to [facility] and was able to work with therapy and currently she is concerned about her safety at home. Her last fall was in November of this year but has not had any falls recently. She states that she has able to walk several feet without a device, such as a walker but with a walker she is able to walk to her door safely. She has been speaking with her family who states that they are very concerned about her wellbeing and state that she should probably be in a facility. Patient is for going into a fci and does not feel that assisted living would be proper for her at this point time. Patient did have an MRI of her lumbar spine that showed a L1 compression fracture. That was performed on February 28. That is not in our system. Patient did have an x-ray here that showed wedge-shaped deformities of L1 as well as L5. No recent images to compare to within our system. [facility] Medical History History of breast cancer History of pericardial effusion History of viral pericarditis Hypothyroidism PAF (paroxysmal atrial fibrillation) Home Medications lorazepam 0.5 mg tablet 0.25 mg PO BID PRN PRN Anxiety 07/14/13 [History Last Taken 03/28/22 00:00] metoprolol tartrate 50 mg tablet 50 mg PO BIDCM HEART 07/14/13 [History Last Taken 03/28/22] acetaminophen 500 mg tablet 1,000 mg PO TID PRN Pain 08/12/18 [History Last Taken 03/28/22] levothyroxine 100 mcg tablet 100 mcg PO DAILY thyroid 08/12/18 [History Last Taken 03/28/22 04:00] dorzolamide 2 %-timolol 0.5 % (PF) eye drops 1 drp EACH EYE BID eye 11/24/19 [History Last Taken 03/28/22] latanoprost 0.005 % eye drops 1 drp EACH EYE QHS eye 11/24/19 [History Last Taken 03/27/22 20:30] palbociclib 125 mg tablet (Ibrance) 125 mg PO DAILY cancer 02/24/22 [History Last Taken 03/27/22 12:30] Allergy/AdvReac Type Severity Reaction Status Date / Time shellfish derived Allergy Hives Verified 03/28/22 13:30 tetracycline [Tetracycline] Allergy pt unsure Verified 03/28/22 13:30 alcohol AdvReac Unknown Verified 03/28/22 13:30 promethazine [From Phenergan] AdvReac Other Verified 03/28/22 13:30 Family History Father Diabetes Hypertension CVA (cerebral vascular accident) Sister Asthma Diabetes Hypertension Arthritis Osteoporosis Lung disease Surgical History History of modified radical mastectomy of left breast S/P breast biopsy S/P pericardial surgery Status post gamma knife treatment Social History Smoking Status: Former smoker second hand exposure: No alcohol intake: never substance use type: does not use what type of physical activity do you participate in: none frequency: does not exercise seatbelt use: always ROS ROS Narrative All review of systems were negative except as mentioned above in the history of present illness and the other review of systems. Vital Signs Vital Signs Vital Signs: 03/28/22 13:30 03/28/22 18:21 03/28/22 18:45 Temperature 36.3 C L 36.3 C L 36.5 C L Temperature Source Temporal Temporal Temporal Pulse Rate 72 72 75 Respiratory Rate 16 16 16 Blood Pressure 139/74 H 139/74 H 134/76 H Blood Pressure Mean 95 95 95 Blood Pressure Source Monitor Blood Pressure Position Semi-Fowlers Blood Pressure Location Right Arm Pulse Ox 98 98 97 Oxygen Delivery Method Room Air Room Air Room Air Weight Weight: 75.387 kg Body Mass Index (BMI) 28.5 Physical Exam Const alert and no apparent distress HEENT normocephalic Resp normal respiratory effort, no retractions, no use of accessory muscles and clear to auscultation bilaterally Cardio regular rate, regular rhythm, S1 normal heart sound and S2 normal heart sound GI normal to inspection, nondistended, normoactive bowel sounds, soft to palpation, non-tender and non-distended Extremity normal to inspection and full ROM Neuro oriented x3 and CN's II-XII intact bilaterally Results Lab / Micro Data Result Diagrams: 03/28/22 16:01 03/28/22 16:01 Labs: Laboratory Results - last 24 hr 03/28/22 16:01: WBC 2.1 L, RBC 3.02 L, Hgb 11.5 L, Hct 33.8 L, MCV 111.9 H, MCH 38.1 H, MCHC 34.0, RDW Std Deviation 58.4 H, RDW Coeff of Natalie 14.3, Plt Count 152, MPV 9.1, Immature Gran % (Auto) 0.000, Neut % (Auto) 51.2, Lymph % (Auto) 32.7, [place] % (Auto) 10.7 H, Eos % (Auto) 3.9, Baso % (Auto) 1.5 H, Absolute Neuts (auto) 1.1 L, Absolute Lymphs (auto) 0.67 L, Nucleated RBC % 0, Differential Comment SCANNED 03/28/22 16:01: Sodium 143, Potassium 4.1, Chloride 106, Carbon Dioxide 31.0, Anion Gap 6, BUN 14, Creatinine 0.80, Estim Creat Clear Calc 48.43, Est GFR (MDRD) Af Amer 89, Est GFR (MDRD) Non-Af 74, BUN/Creatinine Ratio 17.6, Glucose 98, Calcium 9.7 Micro: Microbiology 03/28/22 16:05 Nasal Secretion SARS-CoV-2 Antigen (Rapid) - Final Radiology Impression Lumbar Spine X-Ray 03/28/22 16:15 IMPRESSION: Scoliosis and degenerative changes. Superior wedging of L1 and L5 of uncertain chronicity MRI or CT would be helpful for definitive evaluation if indicated Electronically Signed: Joaquin Gallagher MD at 16:35 EDT , Assessment & Plan Assessment/Plan (1) Chronic back pain: PLAN: Patient has compression fractures of L1 and L5. It was noted that the L1 was subacute back on the MRI from February of this year. Optimize pain medications. Schedule acetaminophen. Add as needed ketorolac and as well as as needed oxycodone. If remains refractory may consider consult to pain management. It would seem that the fractures may be more subacute not amenable to kyphoplasty but see if an epidural may be of benefit. (2) Declining functional status: PLAN: PT OT evaluate and treat. Patient had already spoken to case management in the emergency room and was given options for [place] [facility] facilities. Once again, patient is not interested in going to assisted living and feels that she should spend out her days in a fci. I will have case management further address these with her. I did go through the routine regards to physical therapy evaluation and case management and insurance approval. 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 PLAN: Plan Chronic conditions Breast cancer: Follow-up with Dr. Burkett. Hypothyroidism: Continue with levothyroxine VTE prophylaxis: Moderate risk: Enoxaparin. CODE STATUS: Addressed with the patient. Patient was to be full code. Charges/Coding Visit Charges Inpatient E&M: 48888 Init Hosp L2
[2022-03-28] MEDS: Acetaminophen 500 MG Tablet 1000 MG PO (22:10)
[2022-03-28] MEDS: Latanoprost 0.005% 1 Bottle 1 DRP EACH EYE (22:10)
[2022-03-28] MEDS: Dorzolamide HCL/Timolol 10 ml Bottle 1 DRP EACH EYE (22:16)
[2022-03-29] MEDS: LORazepam 0.5 MG Tablet 0.25 MG PO (00:27)
[2022-03-29 03:00] VITALS: BP 136/64; PULSE 85; RESP 24; TEMP 36.6; O2SAT 98
[2022-03-29] MEDS: Ketorolac 10 MG Tablet PO (03:40)
[2022-03-29] MEDS: Levothyroxine 100 MCG Tablet PO (06:08)
[2022-03-29 07:49] VITALS: BP 140/63; PULSE 84
[2022-03-29] MEDS: Metoprolol Tartrate 50 MG Tablet PO (07:49)
[2022-03-29 08:46] VITALS: BP 140/63; RESP 16; TEMP 36.8; O2SAT 97
[2022-03-29] MEDS: Lidocaine 5% Patch 1 PATCH TOPICAL (09:20)
[2022-03-29] MEDS: Acetaminophen 500 MG Tablet 1000 MG PO ×2 (09:21→14:20)
[2022-03-29] MEDS: Dorzolamide HCL/Timolol 10 ml Bottle 1 DRP EACH EYE ×2 (09:21→15:55)
[2022-03-29 09:50] VITALS: BP 119/62; PULSE 74; RESP 18; TEMP 36.6; O2SAT 95
--- NOTE | 2022-03-29 11:04 | CASEMGMT ---
Addendum entered by Skye Stephens 03/29/22 14:34: Received tc from Cele at 's office stating pt will potentially need to start her Ibrance on Monday pending her counts. States pt will need a CBC Monday to determine. Updated hospitalist. Received notification asking if pt can bring Ibrance from home. DESHAWN ESTEVEZ in to pt room, pt states she can have her friend Elizabeth bring in the med. She is aware she will need this by Monday. TC back to Cele at 's office to make aware, she will call tomorrow to [facility] to give verbal order for lab draw. Addendum entered by Skye Stephens 03/29/22 12:15: DESHAWN ESTEVEZ into pt room, pt aware to call 's office to reschedule her medication administration. Pt verbalizes understanding. Addendum entered by Skye Stephens 03/29/22 11:41: Received tc back from Cele at 's office. She states she will cancel patient's appt tomorrow. This medication is precerted to only be given in their facility. She states pt is capable of calling them to reschedule the appt once she is at the SNF. Placed on dc instructions. Original Note: DESHAWN ESTEVEZ made aware pt has a faslodex shot tomorrow. TC to 's office, spoke to Zeenat, she is aware pt is hospitalized and plans to go to a SNF. She states she will send a message to and return the call to DESHAWN ESTEVEZ with answer.
--- NOTE | 2022-03-29 11:12 | CASEMGMT ---
Discharge Sampler Radioactive Waste [place] fregoso/ranulfo radiology physician assistant sent referral to Rubi at the [facility] via [facility]. Will follow up. Plan: [facility], Waiting Acceptance [place] Turner Discharge Sampler Radioactive Waste
--- NOTE | 2022-03-29 11:39 | CASEMGMT ---
Discharge Trouble Locator Test Desk Rubi from the [facility] reached out. Patient has been accepted at the [facility]. Rubi and the business office ran patient insurance and the [facility] is running as primary. [facility] will take patient when medically ready. Plan: [facility], when medically ready. [place] Turner Discharge Trouble Locator Test Desk
--- NOTE | 2022-03-29 11:42 | CASEMGMT ---
Social Work Sw in to pt room to inform of acceptance and discharge to [facility] today. Pt upset, stated does not want to discharge today. RICARDO explained DrAlondra feels pt is medically ready and can discharge today. Pt unwilling to discuss stated not ready to go to SNF. RICARDO reviewed options with pt. PT/OT recommending pt go home, pt ambulating well. RICARDO reviewed options with pt: go home or go to SNF today. Pt requested to discuss with Dr. RICARDO informed Dr that pt would like to speak regarding this matter. BHAKTI Kovacs
[2022-03-29 11:49] LABS: Vitamin D,25 Hydroxy 41.3 ng/mL
--- NOTE | 2022-03-29 11:59 | CHAPLAIN ---
Type of Pastoral Visit _x__ Initial Visit ___ Follow-up Visit ___ On-call Visit ___ General Patient Visit ___ Spiritual Assessment ___ Family Conference ___ Bereavement ___ Rapid Response ___ Code Blue ___ Other (describe below) Pastoral Care Referral From _x__ Patient ___ Family ___ Nurse ___ Physician ___ Secondary English Teacher ___ Carbon Lamp Cleaner ___ Other (describe below) Sacrament/Intervention _x__ Active listening ___ Anointing ___ Caodaism ___ Bereavement ___ Communion _x__ Mayra exploration ___ _x__ Life review _x__ Prayer ___ Reconciliation ___ Sacrament of Sick _x__ Supportive presence ___ Wedding ___ Other (describe below) Pastoral Comments patient is eager to talk and expresses her desire/decision to find SNF for safety issues as I shouldn't be living alone anymore; pt has been a cancer patient and reports doing well with her care and treatments; pt talks about her connection to local holiness albeit mostly online and through prayer chain and small group of Amish ladies; pt wants to be around people and not alone; pt admits to some level of fear at changes and her conditions of aging; pt asks for prayer support and repeatedly thanks this breakfast manager for spiritual care support and presence
--- NOTE | 2022-03-29 14:12 | DCINST_ITS ---
Discharge Instructions Diet Discharge Diet: No restrictions Follow Up Care Test Results: Test results from this visit will be discussed in further detail at your follow- up appointment, if applicable. Discharge Plan Admission Admit Date/Time: 03/28/22 18:53 Primary Reason for Your Visit: Hip and ankle pain Attending Provider: Ella Oreilly Primary Care Provider: Floridalma Torres Consulting Providers: Delano Blake Instructions Patient Instructions: Back Exercises: Hip Lift, Hip Adduction (Strength) Additional Instructions / Restrictions: Please continue your home medications. You will need a CBC (lab work) Monday You will start ibrance on Monday after the results of your CBC are reviewed per Dr. Burkett Please follow with Dr. Burkett on discharge. Please continue tylenol and nsaids for pain control as well as lidocaine patches Please return to the hospital for any concerning signs or symptoms Discharge Orders/Prescriptions Prescriptions: New ketorolac 10 mg Tablet 10 mg PO Q6H PRN PRN (Reason: Pain 1-10 Or Fever) Qty: 0 0RF Continued metoprolol tartrate 50 MG tablet 50 mg PO BIDCM Label Comments: TAKES IN AM AND WITH SUPPER acetaminophen 500 MG tablet 1,000 mg PO TID PRN (Reason: Pain) levothyroxine 100 MCG tablet 100 mcg PO DAILY latanoprost 1 DROP bottle 1 drp EACH EYE QHS dorzolamide-timolol (PF) 10 ML drops 1 drp EACH EYE BID Ibrance 125 mg tablet 125 mg PO DAILY lorazepam 0.5 MG tablet 0.25 mg PO BID PRN PRN (Reason: Anxiety) 3 Days Qty: 6 0RF Referrals / Follow Up: Floridalma Torres MD [Primary Care Provider] - Ky Burkett DO [Med Staff - Active Staff] - (Please call to reschedule your appt for your Faslodex once you are at the halfway facility. ) Disposition Disposition (needs filled in before D/C Order can be placed): Retirement Facility
--- NOTE | 2022-03-29 14:15 | CASEMGMT ---
Social Work SW met with pt to offer support and assist in calming pt anxiety about discharge. Pt adamant in not wanting to transfer to nursing facility today. During time in room Dr. Oreilly entered and assisted in discussion with SW and pt. Dr. Oreilly discuss hesitation for pt in discharging to SNF. Pt, SW and talked out worries. Pt became more comfortable with discharging and requested SW call [facility] with request for facility to have size 8 underwear available to pt when pt arrives. SW assured pt this call would happen. SW called Rubi at the [facility]. Rubi reported has some underwear that pt could wear when pt arrives at SNF. Madalyn García, BHAKTI
--- NOTE | 2022-03-29 14:24 | TREXTCAR_ITS ---
Diet Diet Order/Speech Therapy: 03/28/22 20:21 Diet: Regular - General Food consistency:: Regular Liquid Consistency:: Regular/Thin Is pt able to select menu?: Yes Routine Orders/Code Status Suppository Type: Dulcolax 10mg Suppository Frequency: Daily PRN Keep PO Greater than or Equal to (%): 92 Routine Lab Work: CBC (Monday per Dr. Burkett) Therapies Physical Therapy: Eval and Treat Occupational Therapy: Eval and Treat Problem/Diagnosis (1) Chronic back pain: Status: Chronic Code(s): M54.9 - Dorsalgia, unspecified; G89.29 - Other chronic pain (2) Declining functional status: Status: Acute Code(s): R53.81 - Other malaise Plan (1) Chronic back pain: (2) Declining functional status: Allergies/Procedures Done in Hospital Allergies shellfish derived Allergy (Verified 03/28/22 13:30) Hives tetracycline [Tetracycline] Allergy (Verified 03/28/22 13:30) pt unsure alcohol Adverse Reaction (Verified 03/28/22 13:30) Unknown promethazine [From Phenergan] Adverse Reaction (Verified 03/28/22 13:30) Other CONFUSION Type of Care/Length of Stay Estimated LOS: More Than 30 Days Type of Care Needed: Skilled Rehab Potential: Fair Prognosis: Fair Additional Orders/Day of Discharge Day of Discharge: 03/29/22 Discharge Plan Admission Admit Date/Time: 03/28/22 18:53 Primary Reason for Your Visit: Hip and ankle pain Attending Provider: Ella Oreilly Primary Care Provider: Floridalma Torres Consulting Providers: Delano Blake Instructions Patient Instructions: Back Exercises: Hip Lift, Hip Adduction (Strength) Additional Instructions / Restrictions: Please continue your home medications. You will need a CBC (lab work) Monday You will start ibrance on Monday after the results of your CBC are reviewed per Dr. Burkett Please follow with Dr. Burkett on discharge. Please continue tylenol and nsaids for pain control as well as lidocaine patches Please return to the hospital for any concerning signs or symptoms Discharge Orders/Prescriptions Prescriptions: New ketorolac 10 mg Tablet 10 mg PO Q6H PRN PRN (Reason: Pain 1-10 Or Fever) Qty: 0 0RF Continued metoprolol tartrate 50 MG tablet 50 mg PO BIDCM Label Comments: TAKES IN AM AND WITH SUPPER acetaminophen 500 MG tablet 1,000 mg PO TID PRN (Reason: Pain) levothyroxine 100 MCG tablet 100 mcg PO DAILY latanoprost 1 DROP bottle 1 drp EACH EYE QHS dorzolamide-timolol (PF) 10 ML drops 1 drp EACH EYE BID Ibrance 125 mg tablet 125 mg PO DAILY lorazepam 0.5 MG tablet 0.25 mg PO BID PRN PRN (Reason: Anxiety) 3 Days Qty: 6 0RF Referrals / Follow Up: Floridalma Torres MD [Primary Care Provider] - Ky Burkett DO [Med Staff - Active Staff] - (Please call to reschedule your appt for [facility]x [facility] ) Disposition Disposition (needs filled in before D/C Order can be placed): Longterm Facility
--- NOTE | 2022-03-29 14:44 | CASEMGMT ---
Discharge Vacuum Plastic Forming Machine Operator [place] fregoso/ranulfo multimedia production assistant called [facility] about the patient med Ibrance to see if patient can take it when at [facility]. [facility] is just requesting patient to bring Ibrance. ZENAIDA Cheung and this press writer talked with patient. Patient will have Elizabeth bring medication and clothes to the [facility]. Plan: [facility] Discharge Vacuum Plastic Forming Machine Operator
--- NOTE | 2022-03-29 15:08 | CASEMGMT ---
Social Work SW completed 7000 convalescent form in [employer] system. Set up wheelchair transportation through [facility] for 4:30pm. SW notified pt, pt nurse and SNF of transport time. RICARDO faxed discharge orders to [facility] via [employer]. Placed copies of orders on pt chart and sent originals in envelope with pt. Disposition: [facility], Skilled, convalescent level of care BHAKTI Kovacs
--- NOTE | 2022-03-29 15:29 | CHAPLAIN ---
Type of Pastoral Visit ___ Initial Visit _x__ Follow-up Visit ___ On-call Visit ___ General Patient Visit ___ Spiritual Assessment ___ Family Conference ___ Bereavement ___ Rapid Response ___ Code Blue ___ Other (describe below) Pastoral Care Referral From _x__ Patient ___ Family ___ Nurse ___ Physician ___ Automatic Furnace Operator ___ Rn Integrity ___ Other (describe below) Sacrament/Intervention _x__ Active listening ___ Anointing ___ Mu-Ism ___ Bereavement ___ Communion ___ Mayra exploration ___ ___ Life review _x__ Prayer ___ Reconciliation ___ Sacrament of Sick _x__ Supportive presence ___ Wedding ___ Other (describe below) Pastoral Comments call came from RN at approximately 12:30 p.m. that patient would like to see this fire official again; first visit was about an hour earlier; pt wanted to discuss her displeasure at decisions about her departure today to SNF and that she was not prepared to go today; pt was concerned that no family member or friend was available to transport and that she did not have clean clothes (and no one could wash them today for her); pt was adamant about staying in the hospital until or Monday at the earliest; gave attention and listening ear to patient; offered supportive presence but as patient stated you are not able to help me in this are you?; pt did express thanks for the time given to listen and show concern; pt welcomes another prayer; this fire official reported conversation to the charge nurse who was fully aware of the situation
[2022-03-29 15:50] VITALS: BP 163/69; PULSE 67; RESP 18; TEMP 36.6; O2SAT 95
--- NOTE | 2022-03-29 18:47 | DS.PCM_ITS ---
Providers Date of Admission: 03/28/22 Date of Discharge: 03/29/22 Primary Care Physician: Dr. Floridalma Torres MD Reason For Visit: BACK PAIN, FUNCTIONAL DECLINE Diagnosis Discharge Diagnosis (1) Chronic back pain: Status: Chronic Code(s): M54.9 - Dorsalgia, unspecified; G89.29 - Other chronic pain (2) Declining functional status: Status: Acute Code(s): R53.81 - Other malaise Plan (1) Chronic back pain: (2) Declining functional status: Medications at Discharge Home Medications metoprolol tartrate 50 mg tablet 50 mg PO BIDCM HEART 07/14/13 acetaminophen 500 mg tablet 1,000 mg PO TID PRN Pain 08/12/18 levothyroxine 100 mcg tablet 100 mcg PO DAILY thyroid 08/12/18 dorzolamide 2 %-timolol 0.5 % (PF) eye drops 1 drp EACH EYE BID eye 11/24/19 latanoprost 0.005 % eye drops 1 drp EACH EYE QHS eye 11/24/19 palbociclib 125 mg tablet (Ibrance) 125 mg PO DAILY cancer 02/24/22 ketorolac 10 mg tablet 10 mg PO Q6H PRN PRN Pain 1-10 Or Fever #0 tabs 03/29/22 lorazepam 0.5 mg tablet 0.25 mg PO BID PRN PRN Anxiety 3 days #6 tabs 03/29/22 Hospital Course Summary of Care Provided Minutes Spent on Discharge: 32 Hospital Course: JORGE LUIS BARRERA, is a 81 F who presented to [facility] 03/29/22 with progressive back pain and hip pain and also concerned about her wellbeing at home.? A week ago, patient went to [facility] and was able to work with therapy and currently she is concerned about her safety at home.? Her last fall was in November of this year but has not had any falls recently.? She states that she has able to walk several feet without a device, such as a walker but with a walker she is able to walk to her door safely.? She has been speaking with her family who states that they are very concerned about her wellbeing and state that she should probably be in a facility.? Patient is for going into a skilled nursing and does not feel that assisted living would be proper for her at this point time.? Patient did have an MRI of her lumbar spine that showed a L1 compression fracture.? That was performed on February 28.? That is not in our system.? Patient did have an x- ray here that showed wedge-shaped deformities of L1 as well as L5.? No recent images to compare to within our system. Pt did well overnight and worked with PT, no needs requiring hospital level care and pt appropriate for skilled facility for rehab/physical therapy. Would like to go to skilled nursing/[facility] care after skilled. Spent >20 minutes discussing discharge with pt in addition to >15 minutes preparing discharge and coordinating care. Physical Exam Const alert and oriented x3 Constitutional Narrative: Oriented HEENT normocephalic and head/scalp atraumatic Eyes Eyes Narrative: EOM grossly intact, anicteric Neck supple Resp normal respiratory effort and clear to auscultation bilaterally Cardio regular rate and regular rhythm GI soft to palpation, non-tender and non-distended Extremity Extremity Narrative: No edema appreciated, pain when pushing on ankles, also pain when palpating over hips, primarily left lateral hip Neuro moves all extremities Neuro Narrative: No overt focal deficits appreciated Psych Psych Narrative: Cooperative Weight / BMI Weight Weight: 75.387 kg Body Mass Index (BMI) 28.5 ABG / Lab / Microbiology Data Result Diagrams: 03/28/22 16:01 03/28/22 16:01 Laboratory: Laboratory Results - last 24 hr 03/29/22 05:21: Vitamin D 25-Hydroxy 41.3 Microbiology: Microbiology 03/29/22 12:25 Nasal Secretion SARS-CoV-2 Antigen (Rapid) - Final 03/28/22 16:05 Nasal Secretion SARS-CoV-2 Antigen (Rapid) - Final D/C Instructions Discharge Diet: No restrictions Meaningful Use Info Meaningful Use Diagnoses (Choose all that apply): None applicable Discharge Plan Admission Admit Date/Time: 03/28/22 18:53 Primary Reason for Your Visit: Hip and ankle pain Attending Provider: Ella Oreilly Primary Care Provider: Floridalma Torres Consulting Providers: Delano Blake Instructions Patient Instructions: Back Exercises: Hip Lift, Hip Adduction (Strength) Additional Instructions / Restrictions: Please continue your home medications. You will need a CBC (lab work) Monday You will start ibrance on Monday after the results of your CBC are reviewed per Dr. Burkett Please follow with Dr. Burkett on discharge. Please continue tylenol and nsaids for pain control as well as lidocaine patches Please return to the hospital for any concerning signs or symptoms Discharge Orders/Prescriptions Prescriptions: New ketorolac 10 mg Tablet 10 mg PO Q6H PRN PRN (Reason: Pain 1-10 Or Fever) Qty: 0 0RF Continued metoprolol tartrate 50 MG tablet 50 mg PO BIDCM Label Comments: TAKES IN AM AND WITH SUPPER acetaminophen 500 MG tablet 1,000 mg PO TID PRN (Reason: Pain) levothyroxine 100 MCG tablet 100 mcg PO DAILY latanoprost 1 DROP bottle 1 drp EACH EYE QHS dorzolamide-timolol (PF) 10 ML drops 1 drp EACH EYE BID Ibrance 125 mg tablet 125 mg PO DAILY lorazepam 0.5 MG tablet 0.25 mg PO BID PRN PRN (Reason: Anxiety) 3 Days Qty: 6 0RF Referrals / Follow Up: Floridalma Torres MD [Primary Care Provider] - Ky Burkett DO [Med Staff - Active Staff] - (Please call to reschedule your appt for your Fasl[facility] once you are at the nursing home facility. ) Disposition Disposition (needs filled in before D/C Order can be placed): Care Home Facility Charges/Coding Visit Charges Inpatient E&M: 91189 Disch Hosp
== END 2022-03-29 16:16 | disposition skilled nursing facility (03) | DRG 544 ==
LOC: ED 17:52 → MS3 03-29 06:29
PROVIDERS: Emergency Provider Emergency Medicine; PCP Internal Medicine; Visit Provider Internal Medicine
DX: M48.56XA Collapsed vertebra, not elsewhere classified, lumbar region, initial encounter for fracture (principal); E03.9 Hypothyroidism, unspecified; M43.16 Spondylolisthesis, lumbar region; M48.061 Spinal stenosis, lumbar region without neurogenic claudication; R53.81 Other malaise; G89.29 Other chronic pain; R26.81 Unsteadiness on feet; Z60.2 Problems related to living alone; Z74.09 Other reduced mobility; Z90.12 Acquired absence of left breast and nipple; Z79.891 Long term (current) use of opiate analgesic; Z79.899 Other long term (current) drug therapy; Z85.3 Personal history of malignant neoplasm of breast; Z87.891 Personal history of nicotine dependence
CPT/HCPCS: 36415; 72100; 80048; 82306; 85025; 87426; 87811; 97162; 97166; 99284; A4216

== ENCOUNTER → 2022-06-22 | Outpatient (CLI) | payer BC, SELFPAY ==
--- NOTE | 2022-06-22 10:55 | PET_ITS ---
EXAMINATION: FDG PET/CT ? INDICATIONS: 82-year-old female with a history of carcinoma of the breast, presenting for restaging examination. ? COMPARISON EXAMINATION: FDG PET study dated 06/18/2018 TECHNIQUE: Following the intravenous administration of 11.56 mCi of F-18 deoxyglucose via the right antecubital fossa, multiplanar image acquisitions of the neck, chest, abdomen and pelvis to the level of the midthigh, obtained at one-hour post radiopharmaceutical administration contemporaneously interpreted with FDG PET study dated 06/18/20182 reveal: ? SERUM GLUCOSE LEVEL:? 124 mg/dL? HEIGHT:?? 64 inches WEIGHT:?? 170 pounds ? FINDINGS: ? HEAD/NECK:? Prominent uptake is defined in the anterior aspect of the oral cavity in proximity to dental hardware placement, most consistent with metallic reconstruction artifact. Facilitated uptake is noted in the anterior neck, laryngeal structures associated with the cricopharyngeus musculature, most consistent with muscle tension artifact. ? The visualized portion of the cerebral cortical-subcortical structures demonstrate symmetric and preserved glucose metabolism. ? CHEST:? There is no quantitative scintigraphic evidence of abnormal increased glucose metabolism within the context of the bilateral hemithorax pulmonary parenchyma, right and left hemithorax at the pleural interface, mediastinal structures, and left-right thoracic perihilum. Facilitated FDG uptake is noted in the descending thoracic aorta consistent with activated leukocytes associated with atherosclerotic plaque formation. ? CT of the chest demonstrates the following anatomic characteristics: Atherosclerotic calcification is defined in the thoracic aorta without evidence of dilatation, aneurysm formation. Coronary artery calcification is observed. Surgical clip placement is noted in the left axilla. Left and right axillary soft tissue densities with fatty hilus are nonglucose avid. There are no parenchymal densities-nodules defined in the right and left hemithorax with quantitatively significant increased FDG uptake. ? ABDOMEN/PELVIS:? Normal physiologic distribution of the radiopharmaceutical is identified in the hepatic and splenic parenchyma, both renal units, urinary bladder, and visualized intestinal tract. ? CT of the abdomen and pelvis is remarkable for the following: Atherosclerotic calcification is defined in the abdominal aorta without evidence of dilatation, aneurysm formation. Abdominal and pelvic arterial calcification is observed. Asymmetric increased uptake is noted in the right sartorius musculature consistent with muscle tension artifact. Colonic diverticulosis is noted without evidence of diverticulitis. ? SKELETAL:? Increased radiopharmaceutical concentration is noted in several thoracic vertebrae at the costovertebral junction to the left of midline and sacrum anteriorly on the left and fifth lumbar vertebra associated facet joints ? PET/PET/CT Tumor Base -Thigh Subs IMPRESSION: 1. NEGATIVE EXAMINATION. There is no definitive quantitative scintigraphic evidence of recurrent-viable neoplasm. 2. Enhanced radiopharmaceutical concentration defined in the thoracic spine at the costovertebral junction, linear in presentation, as well as fifth lumbar vertebra associated with facet joints to the left and right of midline, and the first sacral segment is most consistent with degenerative arthrosis. 3. Overall, compared to the prior FDG PET study dated 06/18/2018, there is current absence of defined neoplastic disease. Electronic Signature Ceferino Ventrua D.O. Accurate Quantification of SUVs for this report are calculated using the exclusive [employer]. (U.S. Patent No. [phone] [phone] 983 B2 [phone] [place] patent [phone]). Standardization and correction of the FDG SUV metric via [employer] technology allow for vendor non-specific objective quantitative examination comparison and optimization of the sensitivity and specificity of the FDG PET-CT examination. Electronically Signed: Ceferino Ventura, at 9:48 EST ,
== END | disposition home or self-care (01) ==
PROVIDERS: PCP Internal Medicine; Referring Provider Internal Medicine Hematology & Oncology; Visit Provider Internal Medicine Hematology & Oncology
DX: C50.812 Malignant neoplasm of overlapping sites of left female breast (principal); C79.31 Secondary malignant neoplasm of brain; C79.51 Secondary malignant neoplasm of bone; Z17.0 Estrogen receptor positive status [ER+]
CPT/HCPCS: 78815; A9552

== ENCOUNTER → 2023-01-03 | Outpatient (CLI) | payer BC, SELFPAY ==
--- NOTE | 2023-01-03 09:30 | PET_ITS ---
EXAMINATION: FDG PET-CT INDICATIONS: An 82-year-old female with history of carcinoma of the breast presenting for restaging examination. COMPARISON EXAMINATION: Prior FDG PET study dated 06/22/22 TECHNIQUE: Following the intravenous administration of 11.6 mCi of F-18 deoxyglucose, multiplanar image acquisitions of the neck, chest, abdomen and pelvis to level of mid thigh, obtained at one hour post radiopharmaceutical administration contemporaneously interpreted with the current CT of the neck, chest, abdomen and pelvis, to level of mid thigh, dated 01/03/23 via coregistration and FDG PET study dated 06/22/22 reveals: WEIGHT: 162 lbs. HEIGHT: 61 inches FINDINGS: Head/Neck: There is no evidence of abnormal increased glucose metabolism in the pharyngeal mucosal space, parapharyngeal space, bilateral-lateral and anterior neck, hypopharynx and distribution of the laryngeal structures. The visualized portion of the cerebral cortical-subcortical structures demonstrate symmetric and preserved glucose metabolism. Visualized brown adipose tissue is noted, as well as facilitated uptake noted in the right lateral neck associated with the strap musculature. CHEST: There is no quantitative scintigraphic evidence of abnormal increased glucose metabolism within the context of the bilateral hemithorax pulmonary parenchyma, right and left hemithorax pleural interface, mediastinal structures and right-left thoracic perihilum. Prominent radiopharmaceutical concentration is identified in the left ventricular myocardium commensurate with the [place]. Prominent bilateral paravertebral muscle tension artifact is noted. (Matt et al, Journal of Nuclear Medicine 29:1393, 2002). Previously defined morphologic-anatomic changes noted on review of CT of the chest dated 06/22/22, are essentially unchanged on the current examination Abdomen/Pelvis: Normal physiologic distribution of the radiopharmaceutical is apparent in the hepatic and splenic parenchyma, both renal units, bladder and visualized intestinal tract. Review of CT of the abdomen and pelvis dated 06/22/22 demonstrates no significant interval change. Skeletal: Degenerative changes are noted in the cervical, thoracic and lumbar spine without evidence of increased radiopharmaceutical concentration. PET/PET/CT Tumor Base -Thigh Subs IMPRESSION: 1. NEGATIVE EXAMINATION. There is no definitive quantitative scintigraphic evidence of recurrent/viable neoplasm. 2. There is visualized brown adipose tissue corresponding to thoracic muscle tension artifact. 3. Overall, compared to the prior FDG PET study dated 06/22/22, there is current and continued absence of defined viable neoplastic disease. Electronic Signature Ceferino Ventura D.O. Accurate Quantification of SUVs for this report are calculated using the exclusive [employer]. (U.S. Patent No. [phone] [phone] 983 B2 [phone] [place] patent [phone]). Standardization and correction of the FDG SUV metric via [employer]QUAN technology allow for vendor non-specific objective quantitative examination comparison and optimization of the sensitivity and specificity of the FDG PET-CT examination. Electronically Signed: Ceferino Ventura, at 22:40 EDT ,
== END | disposition home or self-care (01) ==
PROVIDERS: PCP Internal Medicine; Referring Provider Internal Medicine Hematology & Oncology; Visit Provider Internal Medicine Hematology & Oncology
DX: C50.812 Malignant neoplasm of overlapping sites of left female breast (principal); C79.31 Secondary malignant neoplasm of brain; C78.01 Secondary malignant neoplasm of right lung; C79.51 Secondary malignant neoplasm of bone; Z17.0 Estrogen receptor positive status [ER+]
CPT/HCPCS: 78815; A9552

== ENCOUNTER → 2023-07-11 | Outpatient (CLI) | payer MEDICARE, BC, MEDICAID, SELFPAY ==
--- NOTE | 2023-07-11 10:00 | PET_ITS ---
EXAMINATION: FDG PET-CT INDICATIONS: A 83-year-old female with history of primary breast carcinoma presenting for restaging examination. COMPARISON EXAMINATION: Previous FDG PET study dated 01/03/23 INDEX LESION SIZE SUV INTERPRETATION NEW: right posterior chest wall-rib, linear in presentation in the longitudinal plane Most consistent with trauma-fracture TECHNIQUE: Following the intravenous administration of 14.99 mCi of F-18 deoxyglucose via the right antecubital fossa, multiplanar image acquisitions of the neck, chest, abdomen and pelvis to level of mid thigh, obtained at one hour post radiopharmaceutical administration contemporaneously interpreted with the current CT of the neck, chest, abdomen and pelvis, to level of mid thigh, dated 07/11/23 via coregistration and FDG PET study dated 01/03/23 reveals: BLOOD GLUCOSE LEVEL:?? 123 mg/dl?HEIGHT:?61 inches?WEIGHT: 164 lbs. FINDINGS: Head/Neck: There is no evidence of abnormal increased glucose metabolism in the pharyngeal mucosal space, parapharyngeal space, bilateral-lateral and anterior neck, hypopharynx and distribution of the laryngeal structures. The visualized portion of the cerebral cortical-subcortical structures demonstrate symmetric and preserved glucose metabolism. Facilitated uptake is noted in the nasopharynx to the right of the midline associated with longus capitis and levator palatine musculature. CHEST: There is no quantitative scintigraphic evidence of abnormal increased glucose metabolism within the context of the bilateral hemithorax pulmonary parenchyma, right and left hemithorax pleural interface, mediastinal structures and right-left thoracic perihilum. Prominent radiopharmaceutical concentration is identified in the left ventricular myocardium commensurate with the [place]. Enhanced tracer uptake is noted in the descending thoracic aorta commensurate with activated leukocytes associated with atherosclerotic plaque formation. An increase in radiopharmaceutical concentration defined in the left lower posterior lung field is ametabolic. Previously defined morphologic-anatomic changes noted on review of CT of the chest dated 01/03/23, are essentially unchanged on the current examination. Abdomen/Pelvis: Normal physiologic distribution of the radiopharmaceutical is apparent in the hepatic and splenic parenchyma, both renal units, bladder and visualized intestinal tract. Diffuse radiopharmaceutical concentration is noted in all four quadrants of the abdomen and pelvis. Review of CT of the abdomen and pelvis dated 01/03/23 demonstrates no significant interval change. Skeletal: Enhanced radiopharmaceutical concentration is newly defined in the right posterior chest wall-rib, linear in presentation in the longitudinal plane. Degenerative changes are noted in the cervical, thoracic and lumbar spine without evidence of increased radiopharmaceutical concentration. PET/PET/CT Tumor Base -Thigh Subs IMPRESSION: 1. NEGATIVE EXAMINATION. There is no definitive quantitative scintigraphic evidence of recurrent/viable neoplasm. 2. Enhanced tracer uptake newly defined in the right posterior chest wall-rib is most consistent with trauma-fracture. 3. Overall, compared to the prior FDG PET study dated 01/03/23, there is current absence of defined viable neoplastic disease. Electronic Signature Ceferino Ventura D.O. Accurate Quantification of SUVs for this report are calculated using the exclusive [employer], (U.S. Patent No. [phone] [phone] 983 B2 [phone] [place] patent [phone] ). Standardization and correction of the FDG SUV metric exclusively available with [employer] intellectual property, allow for vendor non-specific objective quantitative sequential FDG PET-CT comparison and otherwise unobtainable optimization of the sensitivity and specificity of the examination. [email or web address] Electronically Signed: Ceferino Ventura DO at 23:23 EST ,
== END | disposition home or self-care (01) ==
PROVIDERS: PCP Internal Medicine; Referring Provider Internal Medicine Hematology & Oncology; Visit Provider Internal Medicine Hematology & Oncology
DX: C78.01 Secondary malignant neoplasm of right lung (principal); C79.31 Secondary malignant neoplasm of brain; C50.812 Malignant neoplasm of overlapping sites of left female breast; Z17.0 Estrogen receptor positive status [ER+]
CPT/HCPCS: 78815; A9552

== ENCOUNTER 2024-01-24 10:37 | Inpatient (IN) | payer MEDICARE, MEDICAID, SELFPAY ==
[2024-01-24] VITALS (21 sets, daily range): BP systolic 89–127; BP diastolic 43–69; PULSE 66–104; RESP 10–19; TEMP 36.4–38.3; O2SAT 58–100; BMI 29.9; BMI 28.3
--- NOTE | 2024-01-24 10:51 | EKG12_ITS ---
Test Reason : Blood Pressure : / mmHG Vent. Rate : 099 BPM Atrial Rate : 099 BPM P-R Int : 120 ms QRS Dur : 092 ms QT Int : 350 ms P-R-T Axes : 016 -23 059 degrees QTc Int : 449 ms Normal sinus rhythm Incomplete right bundle branch block Moderate voltage criteria for LVH, may be normal variant ( R in aVL , [place] product ) Borderline ECG Confirmed by RONNELL ESTEBAN, TREVON ([id number]), editor book BLANCO KWON ([id number]) on 01/29/2024 8:39:51 AM Referred By: Confirmed By:DAWIT REYNAGA MD
--- NOTE | 2024-01-24 10:59 | EDS_ITS ---
HPI History of Present Illness Chief Complaint: Alt LOC Informant: patient, EMS and SNF Onset/Context/Timing Onset: Today Context: Gradual Onset Timing: Continuous Current Severity: Moderate Maximum Severity: Moderate Narrative Narrative: 83-year-old female past medical history of breast cancer. Currently is a reside nt at the [facility]. Reportedly was fine last night when she went to bed started having nausea and vomiting throughout the night. Developed a fever and hypoxia on room air was only 58%. They sent her in for evaluation. Patient is a limited informant. Prior similar symptoms: No Recent Illness/Hospitalization: No PFSH PFS Medical History History of behavioral and mental health problems Glaucoma History of TIAs Secondary malignant neoplasm of brain History of breast cancer PAF (paroxysmal atrial fibrillation) Hypothyroidism History of pericardial effusion History of viral pericarditis Home Medications ?Medication ?Instructions ?Recorded ?Last Taken ?Type metoprolol tartrate 50 mg tablet 50 mg PO BIDCM HEART 07/14/13 03/28/22 History acetaminophen 500 mg tablet 1,000 mg PO TID PRN Pain 08/12/18 03/28/22 History levothyroxine 100 mcg tablet 100 mcg PO DAILY thyroid 08/12/18 03/28/22 04:00 History latanoprost 0.005 % eye drops 1 drp EACH EYE QHS eye 11/24/19 03/27/22 20:30 History abemaciclib 50 mg tablet (Verzenio) 50 mg PO BID CANCER TREATMENT 01/24/24 Unknown History albuterol sulfate 2.5 mg/3 mL 1.25 mg inhalation Q6H PRN 01/24/24 Unknown History (0.083 %) solution for nebulization shortness of breath or wheezing aspirin 81 mg capsule 81 mg PO DAILY 01/24/24 Unknown History benzonatate 100 mg capsule 100 mg PO Q8H PRN cough 01/24/24 Unknown History dorzolamide-timolol (PF) 2 %-0.5 % 1 drp ophthalmic (eye) BID 01/24/24 Unknown History eye drops in a dropperette duloxetine 30 mg capsule,delayed 60 mg PO DAILY 01/24/24 Unknown History release (Cymbalta) guaifenesin 600 mg tablet, 600 mg PO Q12H PRN congestion 01/24/24 Unknown History extended release 12 hr (Mucinex) lisinopril 5 mg tablet 5 mg PO DAILY 01/24/24 Unknown History lorazepam 0.5 mg tablet 0.25 mg PO Q12H PRN Anxiety 01/24/24 Unknown History magnesium hydroxide 400 mg/5 mL 30 ml PO DAILY PRN constipation 01/24/24 Unknown History oral suspension (Milk of Magnesia) meloxicam 7.5 mg tablet 7.5 mg PO DAILY 01/24/24 Unknown History mineral oil (Fleet Mineral Oil 118 ml NV DAILY PRN constipation 01/24/24 Unknown History enema) ondansetron HCl 4 mg tablet 4 mg PO Q6H PRN nausea and vomiting 01/24/24 Unknown History peg 400-propylene glycol 0.4 %-0.3 1 drp EACH EYE TID PRN dry eye(s) 01/24/24 Unknown History % eye drops (Lubricant Eye (PG-PEG 400)) polyethylene glycol 3350 17 17 g PO DAILY PRN constipation 01/24/24 Unknown History gram/dose oral powder (ClearLax) pregabalin 75 mg capsule 75 mg PO BID 01/24/24 Unknown History tetrahydrozoline 0.05 % eye drops 1 drp EACH EYE Q2H PRN dry eyes 01/24/24 Unknown History (Eye Drops (tetrahydrozoline)) Allergy/AdvReac Type Severity Reaction Status Date / Time shellfish derived Allergy Hives Verified 03/28/22 13:30 tetracycline (Tetracycline) Allergy pt unsure Verified 03/28/22 13:30 alcohol AdvReac Unknown Verified 03/28/22 13:30 promethazine (From Phenergan) AdvReac Other Verified 03/28/22 13:30 Family History Father Diabetes Hypertension CVA (cerebral vascular accident) Sister Asthma Diabetes Hypertension Arthritis Osteoporosis Lung disease Surgical History Status post gamma knife treatment History of modified radical mastectomy of left breast S/P breast biopsy S/P pericardial surgery Social History Smoking Status: Former smoker second hand exposure: No alcohol intake: never substance use type: does not use what type of physical activity do you participate in: none frequency: does not exercise seatbelt use: always ROS ROS ED ROS Narrative Nausea and vomiting. Fever. Constitutional Constitutional ED: Reports fever(s) Eyes Eyes: Denies blurry vision ENT ENT ED: Denies ear pain Cardiovascular Cardiovascular: Denies chest pain Respiratory/Chest Respiratory/Chest: Reports dyspnea Gastrointestinal Gastrointestinal: Reports nausea and vomiting; Denies abdominal pain, constipati on, diarrhea or melena Genitourinary Genitourinary ED: Denies dysuria or hematuria Musculoskeletal Musculoskeletal: Denies arthralgias or back pain Integumentary Denies abscess or Abrasions Neurologic Neurologic: Denies headache(s) Psychiatric Psychiatric: Denies anxiety Endocrine Endocrinology: Denies cold intolerance Hematologic/Lymphatic Hematologic/Lymphatic: Reports none Allergic/Immunologic Allergic/Immunologic ED: Denies mouth swelling, tongue swelling or urticaria EXAM Physical Exam Narrative Exam Narrative: 9-year-old female sent in from a set of care facility. Temperature 101 axillary. Initial blood pressure 89/60 9 repeat 112/54. Initial pulse ox 58% on room air hypoxic on 15 L nonrebreather 94%. H EENT exam pupils round react to light. No trauma. Neck nontender. No lymphadenopathy. Lungs clear to auscultation bilaterally. Heart tachycardic 104 no murmur. Chest wall ribs nontender. Abdomen soft nontender. No peritoneal signs. Moving all 4 extremities. Nontender no deformity. Neurologically she is awake. She does answer questions. She is a limited informant. She does follow some commands. Const Vital Signs: 01/24/24 10:38 01/24/24 10:45 01/24/24 11:16 Temperature 101 F H 101 F H Temperature Source Axillary Axillary Pulse Rate 104 H 102 H Respiratory Rate 18 14 Blood Pressure 89/69 L 112/54 L Blood Pressure Mean 75 73 Pulse Ox 58 94 99 Oxygen Delivery Method Room Air Non-Rebreather Non-Rebreather Oxygen Flow Rate (L/min) 10 01/24/24 11:38 01/24/24 12:00 Temperature Temperature Source Pulse Rate 89 Respiratory Rate 15 Blood Pressure 118/57 L Blood Pressure Mean 77 Pulse Ox 81 99 Oxygen Delivery Method Non-Rebreather Non-Rebreather Oxygen Flow Rate (L/min) 10 15 Positive well nourished and well developed; Negative for cachectic or contractures General Appearance ED: well developed; Negative for cachectic, contractures, cyanotic, diaphoretic, NAD or pallor Nutritional Appearance: Negative for cachectic HEENT Reports moist mucous membranes Negative for trauma or tenderness Eyes PERRL and EOMs intact bilaterally General Eye ED: Negative for pale conjunctiva or scleral icterus Neck no lymphadenopathy, supple and no JVD Chest Wall inspection of chest normal and palpation of chest normal Resp normal respiratory effort and clear to auscultation bilaterally Effort and Inspection: Negative for retractions or pain with movement Auscultation: Negative for rales, rhonchi or wheezes Cardio regular rhythm, S1 normal heart sound, S2 normal heart sound and no murmurs; Negative for regular rate Rate: tachycardic GI normal to inspection, nondistended, normoactive bowel sounds, non-tender, non- distended and no masses Auscultation: normoactive bowel sounds Palpation: soft; Negative for tender, guarding or rebound tenderness present Back/Spine no CVA tenderness Extremity normal to inspection General Extremety ED: Negative for edema or tenderness General Extremity: Negative for edema Neuro No oriented x3 Neuro Narrative: Awake. Answers questions and follows some commands. Does know she is in the hospital. Sensorium / Orientation: alert Motor Exam: general weakness Psych mental status grossly normal Attitude: No agitated Mood & Affect: Negative for depressed, anxious or tearful Skin no rashes or lesions noted and no wounds General Skin Exam: Negative for jaundice or pallor Lesions: No lesion noted Rashes: No rashes noted Trauma: Negative for abrasion Wounds: Negative for wounds noted MDM MDM MDM Narrative Medical decision making narrative: 83-year-old female from correction with fever and hypoxia. She will be placed on the sepsis protocol treated with IV fluids. Tylenol for her fever. Her lung pneumonia versus other etiologies. Repeat exam at 12:25 PM patient is resting comfortably. She is normotensive after the liter normal saline. She is receiving IV antibiotics. Hospitalist she will be admitted to TCU for left lower lobe pneumonia and sepsis. Dehydration and acute kidney injury. History & Record Review Discussion w/independent historian: Patient Additional record(s) reviewed:: Prior inpatient record, Prior outpatient record, Prior ED visit and Prior labs Lab Data Attestation: I reviewed the patient's lab results. Lab results narrative: CBC shows a white count of 7.5. H&H 9.5 and 30. Platelets 198. Electrolytes no gap of 5. BUN 33 creatinine 1.55 consistent dehydration acute kidney injury. Glucose 117. Liver enzymes unremarkable. Chest x-ray looks like a left lower lobe pneumonia. Urinalysis normal. No white or red cells. No bacteria nor nitrites. Labs: Laboratory Results - last 24 hr 01/24/24 01/24/24 01/24/24 10:45 11:00 11:17 WBC 7.5 RBC 2.99 L Hgb 9.5 L Hct 30.8 L MCV 103.0 H MCH 31.8 MCHC 30.8 L RDW Std Deviation 55.9 H RDW Coeff of Natalie 14.8 H Plt Count 198 MPV 9.4 Immature Gran % (Auto) 0.400 Neut % (Auto) 79.4 H Lymph % (Auto) 10.4 L [place] % (Auto) 8.9 Eos % (Auto) 0.4 Baso % (Auto) 0.5 Absolute Neuts (auto) 6.0 Absolute Lymphs (auto) 0.78 L Nucleated RBC % 0 PT Cancelled 13.2 INR Cancelled 1.0 APTT Cancelled 25.2 Sodium 136 Potassium 5.0 Chloride 101 Carbon Dioxide 30.0 Anion Gap 5 BUN 33 H Creatinine 1.55 H Estim Creat Clear Calc 28.49 Est GFR (MDRD) Af Amer 41 L Est GFR (MDRD) Non-Af 34 L BUN/Creatinine Ratio 21.3 H Glucose 117 H Lactic Acid 1.2 Calcium 9.5 Total Bilirubin 0.30 AST 24 ALT 10 L Alkaline Phosphatase 50 Total Protein 5.9 L Albumin 2.9 L Globulin 3.0 Albumin/Globulin Ratio 1.0 Urine Color Yellow Urine Clarity Sl. Cloudy Urine pH 5.0 Ur Specific [place] 1.020 Urine Protein 30 H Urine Glucose (UA) Normal Urine Ketones Negative Urine Occult Blood Negative Urine Nitrite Negative Urine Bilirubin Negative Urine Urobilinogen Normal Ur Leukocyte Esterase Negative Urine RBC 0 SEEN Urine WBC 0 SEEN Ur Squamous Epith Cells 0-5 SEEN Urine Bacteria 0 SEEN Urine Mucus 0 SEEN Radiography Chest X-Ray - ED: 1 View, Read by ED Physician, Heart, Mediastinum, Bony Structures, Chronic Changes and Left Infiltrate Diagnostic Testing: Clinical Impression(s) from Imaging Studies Chest X-Ray 01/24/24 11:30 IMPRESSION: Left basilar consolidation, concerning for pneumonia with mild pleural effusion. Mild nodular opacities in the right mid and lower lung, possibly infectious. Recommend follow-up to resolution. Electronically Signed: Noemí Mcfarland MD at 12:08 EDT , Chest x-ray, portable, single view interpreted by myself shows a left lower lobe density consistent with a left lower lobe pneumonia or mass. Normal cardiac silhouette. Rhythm Strip Rhythm Strip: Sinus Rhythm Rate: 99 Ectopy: None EKG Initial EKG: Attestation: I personally reviewed and interpreted this EKG as follows: Interpretation: Sinus Rhythm and No Acute Injury Pattern Comments: Normal sinus rhythm rate 99 no acute signs of WI or ischemia. Incomplete right bundle branch block. Critical Care Time Critical Care Time: Yes Critical care time (excluding procedures): 30-74 minutes, Discussing w/Patient &/or Family/Assistant Hall Director, Discussing w/Consultants, Arranging Admission or Transfer, Performing Direct Patient Care at Bedside and - (35 minutes.) Discharge Plan Triage Chief Complaint: Alt LOC ED Provider: Royce Leo Dx/Rx/DC Orders Clinical Impression: Pneumonia, Sepsis, Acute dehydration, Acute kidney injury, Transient hypotension, Hypoxia, Fever Prescriptions: No Action metoprolol tartrate 50 MG tablet 50 mg PO BIDCM Rx Instructions: HOLD IF SBP < 100 OR DBP < 60 acetaminophen 500 MG tablet 1,000 mg PO TID PRN (Reason: Pain) Rx Instructions: DO NOT EXCEED 4GM IN 24 HOURS levothyroxine 100 MCG tablet 100 mcg PO DAILY latanoprost 1 DROP bottle 1 drp EACH EYE QHS aspirin 81 mg capsule 81 mg PO DAILY lisinopril 5 mg tablet 5 mg PO DAILY pregabalin 75 mg capsule 75 mg PO BID albuterol sulfate 2.5 mg /3 mL (0.083 %) solution for nebulization 1.25 mg inhalation Q6H PRN (Reason: shortness of breath or wheezing) dorzolamide-timolol (PF) 2-0.5 % dropperette 1 drp ophthalmic (eye) BID Rx Instructions: INSTILL 1 DROP INTO BOTH EYES TWICE DAILY duloxetine [Cymbalta] 30 mg capsule,delayed release(DR/EC) 60 mg PO DAILY mineral oil [Fleet Mineral Oil] Enema 118 ml NV DAILY PRN (Reason: constipation) Rx Instructions: ADMINISTER ONCE DAILY IF NO BM AFTER RECIEVING SUPPOSITORY. IF NO BM WITHIN 1 HOUR AFTER RECIEVING ENEMA, NOTIFY . meloxicam 7.5 mg tablet 7.5 mg PO DAILY magnesium hydroxide [Milk of Magnesia] 400 mg/5 mL suspension 30 ml PO DAILY PRN (Reason: constipation) Rx Instructions: ADMINISTER IF NO BM IN 3 CONSECUTIVE DAYS guaifenesin [Mucinex] 600 mg tablet extended release 12hr 600 mg PO Q12H PRN (Reason: congestion) polyethylene glycol 3350 [ClearLax] 17 gram/dose powder 17 g PO DAILY PRN (Reason: constipation) Lubricant Eye (PG-PEG 400) 0.4-0.3 % drops 1 drp EACH EYE TID PRN (Reason: dry eye(s)) benzonatate 100 mg capsule 100 mg PO Q8H PRN (Reason: cough) Verzenio 50 mg tablet 50 mg PO BID tetrahydrozoline [Eye Drops (tetrahydrozoline)] 0.05 % drops 1 drp EACH EYE Q2H PRN (Reason: dry eyes) ondansetron HCl 4 mg tablet 4 mg PO Q6H PRN (Reason: nausea and vomiting) lorazepam 0.5 MG tablet 0.25 mg PO Q12H PRN (Reason: Anxiety) Primary Care Provider: Floridalma Torres Referrals: Floridalma Torres MD [Primary Care Provider] - Print Language: Tuvaluan Disposition Disposition: Acute Care Hospital [facility]
[2024-01-24 11:06] LABS: Absolute Lymphocyte Count 0.78 X10^3/uL (0.83-4.51); Basophil# 0.04 X10^3/uL; Basophil% 0.5 % (0-1); Eosinophil# 0.03 X10^3/uL; Eosinophils% 0.4 % (0-5); Hematocrit 30.8 % (37-47); Hemoglobin 9.5 g/dL (12.0-15.0); Lymphocyte # 0.78 X10^3/ul (0.83-4.51); Lymphocyte % 10.4 % (19-41); Mean Corp Hgb Conc 30.8 g/dL (32-36); Mean Corpuscular Hgb 31.8 pg (27.0-32.0); Mean Platelet Vol. 9.4 fl (6.2-12.0); Monocyte# 0.67 X10^3/uL; Monocyte% 8.9 % (0-10); NRBC Flagged by Analyzer 0 % (0-5); Neutrophil # 5.98 X10^3/uL (2.7-7.7); Neutrophil % 79.4 % (47-70); Platelet Count 198 K/mm3 (150-450); RBC Distribution Width CV 14.8 % (11.6-14.6); RBC Distribution Width SD 55.9 fl (35.1-43.9); Red Blood Count 2.99 M/mm3 (4.2-5.4); White Blood Count 7.5 K/mm3 (4.4-11.0)
[2024-01-24 11:21] LABS: Bacteria 0 SEEN /hpf (None Seen); Mucous, Urine 0 SEEN /hpf (<or=2+); Red Blood Cells-Urine 0 SEEN /hpf (0-5); White Blood Cells 0 SEEN /hpf (0-5)
[2024-01-24 11:23] LABS: AST(SGOT) 24 U/L (15-37); Alanine Aminotransfer ALT/SGPT 10 U/L (13-56); Albumin, Serum 2.9 g/dL (3.2-5.0); Alkaline Phosphatase 50 U/L (45-117); Anion Gap 5 (5-15); BUN 33 mg/dL (7-18); BUN/Creat Ratio 21.3 RATIO (10-20); Calcium,Total 9.5 mg/dL (8.5-10.1); Chloride 101 mmol/L (98-107); Creatinine, Serum 1.55 mg/dL (0.55-1.02); EST Glomerular Filtration Rate 34 mL/min (>60); Est Glom Filt Rate - Afr Amer 41 mL/min (>60); Estimated Creatinine Clearance 28.49 ml/min; Glucose 117 mg/dL (74-106); Protein, Total 5.9 g/dL (6.4-8.2); Sodium Level 136 mmol/L (136-145)
[2024-01-24 11:28] LABS: Color, Urine Yellow (Yellow); Glucose, Dipstick Normal (Normal); Ketone-Dipstick Negative (Negative); Leukocyte Esterase-Dipstick Negative /ul (Negative); Nitrite-Dipstick Negative (Negative); Occult Blood-Urine Negative /ul (Negative); Protein-Dipstick 30 mg/dl (Negative); Urine Bilirubin Dipstick Negative (Negative); Urine Clarity Sl. Cloudy (Clear); Urine Urobilinogen Normal (Normal)
--- NOTE | 2024-01-24 11:30 | RAD_ITS ---
HISTORY: fever. TECHNIQUE: XR Chest 1 View. COMPARISON: 06/06/2018. FINDINGS: CARDIOMEDIASTINAL BORDERS: Cardiac silhouette upper limits of normal in size. Mediastinal contour unchanged with calcification of the aortic knob. LUNGS: Mild nodular opacities in the right mid and lower lung. Consolidation in the left lung base. PLEURA: Mild left pleural effusion. OSSEOUS STRUCTURES: Old left rib fractures. Osteopenia and degenerative change. Left axillary surgical clips. RAD/Chest 1 View (Portable) IMPRESSION: Left basilar consolidation, concerning for pneumonia with mild pleural effusion. Mild nodular opacities in the right mid and lower lung, possibly infectious. Recommend follow-up to resolution. Electronically Signed: Noemí Mcfarland MD at 12:08 EDT ,
[2024-01-24 11:37] LABS: Squamous Epithelial Cells - UA 0-5 SEEN /hpf (5-10)
[2024-01-24] MEDS: Acetaminophen 650 MG Suppository RC (11:41)
[2024-01-24] MEDS: 0.9% Normal Saline (1000mL) 1,000 ML 999 ML IV ×2 (11:41→12:57)
[2024-01-24 11:42] LABS: Partial Thromboplast Time 25.2 Seconds (24.1-36.2); Prothrombin Time (Protime)PT. 13.2 SECONDS (11.7-14.9)
[2024-01-24 12:04] LABS: Lactic Acid 1.2 mmol/L (0.4-1.9)
[2024-01-24] MEDS: Ceftriaxone 1 GM/50 ML BAG IV (12:09)
--- NOTE | 2024-01-24 12:21 | HP.PCM.HOS_ITS ---
HPI - General General Date of Admission: 01/24/24 Date of Service: 01/24/24 Chief Complaint: altered mental status HPI Narrative JORGE LUIS BARRERA, is a 83 F with a PMH as outlined including breast cancer who presents via the ED on 01/24/2024 with a complaint of altered mental status and shortness of breath. She resides at [facility]. She was fine until the middle of last night when she started vomiting. She vomited several times during the night. SHe subsequenly developed fever and chills and shortness of breath; she was saturating at 58% on room air and required 15L to get to 96% in the ED. patient could not give me much of her history and just kept asking me to go talk to the ED doctor. Vitals in the ED were blood pressure 118/57, pulse rate of 89 and respiratory to 15. She was saturating at 99% on 15 L of oxygen by nasal cannula. CBC showed WBC of 7.5, hemoglobin of 9.5 and platelets of 198. INR was 1. Chemistry showed sodium of 136 with potassium of 5 and creatinine of 1.55; her baseline creatinine is less than 1. Urinalysis showed no evidence of UTI. Chest x-ray showed left basilar consolidation concerning for pneumonia with mild pleural effusion and mild nodular opacities in the right mid and lower lung possibly infectious. She was started on IV ceftriaxone and azithromycin in the ED. She has been admitted to be managed for acute hypoxic respiratory failure due to probable aspiration pneumonia. [facility] Medical History History of behavioral and mental health problems Glaucoma History of TIAs Secondary malignant neoplasm of brain History of breast cancer PAF (paroxysmal atrial fibrillation) Hypothyroidism History of pericardial effusion History of viral pericarditis Home Medications ?Medication ?Instructions ?Recorded ?Last Taken ?Type metoprolol tartrate 50 mg tablet 50 mg PO BIDCM HEART 07/14/13 03/28/22 History acetaminophen 500 mg tablet 1,000 mg PO TID PRN Pain 08/12/18 03/28/22 History levothyroxine 100 mcg tablet 100 mcg PO DAILY thyroid 08/12/18 03/28/22 04:00 History latanoprost 0.005 % eye drops 1 drp EACH EYE QHS eye 11/24/19 03/27/22 20:30 History abemaciclib 50 mg tablet (Verzenio) 50 mg PO BID CANCER TREATMENT 01/24/24 Unknown History albuterol sulfate 2.5 mg/3 mL 1.25 mg inhalation Q6H PRN 01/24/24 Unknown History (0.083 %) solution for nebulization shortness of breath or wheezing aspirin 81 mg capsule 81 mg PO DAILY 01/24/24 Unknown History benzonatate 100 mg capsule 100 mg PO Q8H PRN cough 01/24/24 Unknown History dorzolamide-timolol (PF) 2 %-0.5 % 1 drp ophthalmic (eye) BID 01/24/24 Unknown History eye drops in a dropperette duloxetine 30 mg capsule,delayed 60 mg PO DAILY 01/24/24 Unknown History release (Cymbalta) guaifenesin 600 mg tablet, 600 mg PO Q12H PRN congestion 01/24/24 Unknown History extended release 12 hr (Mucinex) lisinopril 5 mg tablet 5 mg PO DAILY 01/24/24 Unknown History lorazepam 0.5 mg tablet 0.25 mg PO Q12H PRN Anxiety 01/24/24 Unknown History magnesium hydroxide 400 mg/5 mL 30 ml PO DAILY PRN constipation 01/24/24 Unknown History oral suspension (Milk of Magnesia) meloxicam 7.5 mg tablet 7.5 mg PO DAILY 01/24/24 Unknown History mineral oil (Fleet Mineral Oil 118 ml ME DAILY PRN constipation 01/24/24 Unknown History enema) ondansetron HCl 4 mg tablet 4 mg PO Q6H PRN nausea and vomiting 01/24/24 Unknown History peg 400-propylene glycol 0.4 %-0.3 1 drp EACH EYE TID PRN dry eye(s) 01/24/24 Unknown History % eye drops (Lubricant Eye (PG-PEG 400)) polyethylene glycol 3350 17 17 g PO DAILY PRN constipation 01/24/24 Unknown History gram/dose oral powder (ClearLax) pregabalin 75 mg capsule 75 mg PO BID 01/24/24 Unknown History tetrahydrozoline 0.05 % eye drops 1 drp EACH EYE Q2H PRN dry eyes 01/24/24 Unknown History (Eye Drops (tetrahydrozoline)) Allergy/AdvReac Type Severity Reaction Status Date / Time shellfish derived Allergy Hives Verified 03/28/22 13:30 tetracycline (Tetracycline) Allergy pt unsure Verified 03/28/22 13:30 alcohol AdvReac Unknown Verified 03/28/22 13:30 promethazine (From Phenergan) AdvReac Other Verified 03/28/22 13:30 Family History Father Diabetes Hypertension CVA (cerebral vascular accident) Sister Asthma Diabetes Hypertension Arthritis Osteoporosis Lung disease Surgical History Status post gamma knife treatment History of modified radical mastectomy of left breast S/P breast biopsy S/P pericardial surgery Social History Smoking Status: Former smoker second hand exposure: No alcohol intake: never substance use type: does not use what type of physical activity do you participate in: none frequency: does not exercise seatbelt use: always ROS ROS Narrative patient confused and unable to give much of a history Review of Systems ROS Unobtainable: due to mental status Vital Signs Vital Signs Vital Signs: 01/24/24 10:38 01/24/24 10:45 01/24/24 11:16 Temperature 101 F H 101 F H Temperature Source Axillary Axillary Pulse Rate 104 H 102 H Respiratory Rate 18 14 Blood Pressure 89/69 L 112/54 L Blood Pressure Mean 75 73 Pulse Ox 58 94 99 Oxygen Delivery Method Room Air Non-Rebreather Non-Rebreather Oxygen Flow Rate (L/min) 10 01/24/24 11:38 01/24/24 12:00 Temperature Temperature Source Pulse Rate 89 Respiratory Rate 15 Blood Pressure 118/57 L Blood Pressure Mean 77 Pulse Ox 81 99 Oxygen Delivery Method Non-Rebreather Non-Rebreather Oxygen Flow Rate (L/min) 10 15 Weight Weight: 174 lb 9.698 oz Body Mass Index (BMI) 29.9 Physical Exam Const alert Orientation / Consciousness: confused and disoriented HEENT normocephalic and head/scalp atraumatic HEENT Narrative: dry oral mucosa Eyes PERRL, EOMs intact bilaterally and conjunctivae normal Neck no lymphadenopathy Resp Resp Narrative: Moderately diminished breath sounds bibasilarly. Few crackles. Was on 15 L of oxygen at time of review. Cardio regular rate, regular rhythm, S1 normal heart sound, S2 normal heart sound and no murmurs GI normal to inspection, nondistended, normoactive bowel sounds, soft to palpation, non-tender and non-distended Extremity normal to inspection, full ROM and no clubbing, cyanosis or edema Neuro CN's II-XII intact bilaterally, moves all extremities and no focal motor deficits Neuro Narrative: confused Sensorium / Orientation: awake and alert Motor Exam: strength 5/5 throughout Psych affect normal Results Lab / Micro Data 01/24/24 10:45 01/24/24 10:45 Labs: Laboratory Results - last 24 hr 01/24/24 10:45: WBC 7.5, RBC 2.99 L, Hgb 9.5 L, Hct 30.8 L, MCV 103.0 H, MCH 31.8, MCHC 30.8 L, RDW Std Deviation 55.9 H, RDW Coeff of Natalie 14.8 H, Plt Count 198, MPV 9.4, Immature Gran % (Auto) 0.400, Neut % (Auto) 79.4 H, Lymph % (Auto) 10.4 L, [place] % (Auto) 8.9, Eos % (Auto) 0.4, Baso % (Auto) 0.5, Absolute Neuts (auto) 6.0, Absolute Lymphs (auto) 0.78 L, Nucleated RBC % 0, PT Cancelled, INR Cancelled, APTT Cancelled, Sodium 136, Potassium 5.0, Chloride 101, Carbon Dioxide 30.0, Anion Gap 5, BUN 33 H, Creatinine 1.55 H, Estim Creat Clear Calc 28.49, Est GFR (MDRD) Af Amer 41 L, Est GFR (MDRD) Non-Af 34 L, BUN/Creatinine Ratio 21.3 H, Glucose 117 H, Calcium 9.5, Total Bilirubin 0.30, AST 24, ALT 10 L , Alkaline Phosphatase 50, Total Protein 5.9 L, Albumin 2.9 L, Globulin 3.0, Albumin/Globulin Ratio 1.0 01/24/24 11:00: Urine Color Yellow, Urine Clarity Sl. Cloudy, Urine pH 5.0, Ur Specific [place] 1.020, Urine Protein 30 H, Urine Glucose (UA) Normal, Urine Ketones Negative, Urine Occult Blood Negative, Urine Nitrite Negative, Urine Bilirubin Negative, Urine Urobilinogen Normal, Ur Leukocyte Esterase Negative, Urine RBC 0 SEEN, Urine WBC 0 SEEN, Ur Squamous Epith Cells 0-5 SEEN, Urine Bacteria 0 SEEN, Urine Mucus 0 SEEN 01/24/24 11:17: PT 13.2, INR 1.0, APTT 25.2, Lactic Acid 1.2 Rhythm Strip Rhythm Strip: Sinus Rhythm Rate: 99 Ectopy: None Imaging Radiology Impression Chest X-Ray 01/24/24 11:30 IMPRESSION: Left basilar consolidation, concerning for pneumonia with mild pleural effusion. Mild nodular opacities in the right mid and lower lung, possibly infectious. Recommend follow-up to resolution. Electronically Signed: Noemí Mcfarland MD at 12:08 EDT , Assessment & Plan Assessment/Plan (1) Fever: (2) Hypoxia: (3) Acute kidney injury: PLAN: Plan #Acute hypoxic respiratory failure due to probable aspiration pneumonia * Admit to PCU. * Patient admitted from her intermediate after she got acutely short of breath. She had apparently had several episodes of vomiting and then subsequently developed a fever and vomiting. * She was saturating at 58% on room air when she was found. Patient currently on 15 L of oxygen. * Order blood cultures. Chest x-ray showed left basilar consolidation concerning for pneumonia with mild pleural effusion as well as mild nodular opacities in the right mid and lower lung possibly infectious. * Patient started on IV ceftriaxone and azithromycin in the ED. Will give IV Zosyn. * Patient was weaned down to 5 L of oxygen by the time she got up to the floor. Titrate oxygen to maintain saturation above 90%. * Breathing treatments with bronchodilators. Check urine for strep and Legionella. * Get sputum cultures. Aspiration precautions and get speech therapy evaluation. * * #AIDAN: Creatinine is 1.55. Baseline is less than 1. Likely prerenal due to her history of frequent vomiting. Will hydrate with IV fluids and trend. #History of breast cancer: S/p modified radical mastectomy of the left breast. On Verzenio #Hypothyroidism: On Synthroid #Hypertension: On lisinopril and metoprolol DVT prophylaxis: Lovenox CODE STATUS: * will enter as presumptive full code until we are able to get clarification from intermediate about patient's CODE STATUS. * Patient is too confused to be able to give any feedback about her CODE STATUS. Charges/Coding Visit Charges Inpatient E&M: 45848 Init Hosp L3
[2024-01-24] MEDS: Azithromycin 500 MG in Dextrose 5%-Water (250mL Bag) 250 ML 250 MG IV (12:29)
--- NOTE | 2024-01-24 13:00 | NURSING ---
ELIZ JAEGER PNEUMONIA, SEPSIS, AIDAN, DEHYDRATION
[2024-01-24] MEDS: Ipratropium/Albuterol Sulfate 3 ML AMPUL.NEB INHALATION ×2 (14:46→18:45)
[2024-01-24] MEDS: 0.9% Normal Saline (1000mL) 1,000 ML 125 ML IV (14:50)
[2024-01-24] MEDS: Piperacil/Tazobactam 3.375 GM in 0.9% Normal Saline (50mL MB+) 50 ML IV ×2 (16:29→21:12)
[2024-01-24] MEDS: 0.9% Normal Saline (500mL Bag) 500 ML 999 ML IV (18:38)
[2024-01-24 19:35] LABS: Base Excess 3 mmol/L (-2 to +2); Bicarbonate 29.5 mmol/L (22-26); Blood Gas Specimen Type ART; Mode Not entered; O2 Delivery Device Cannula; PO2 77 mmHG (75-100); SITE R Brach; SO2 93 % (95-99); Total Carbon Dioxide 31 mmol/L; pCO2 61.2 mmHg (35-45); pH 7.29 (7.35-7.45)
--- NOTE | 2024-01-24 19:59 | PCM.HOSP.N ---
Hospitalist Note ABG resulted, ongoing 6L High flow, pCO2 61.2, mildly lethargic, to be cautious per discussion with RT will place on BIPAP, repeat ABG 1-2 hours.
[2024-01-24] MEDS: 0.9% Normal Saline (1000mL) 1,000 ML 150 ML IV (20:32)
[2024-01-24] MEDS: Timolol 0.5% 5ML OPTH.BTL 5 DRP OPHTHALMIC (21:20)
[2024-01-24] MEDS: Dorzolamide 2% 10ml Bottle 1 DRP OPHTHALMIC (21:36)
--- NOTE | 2024-01-24 21:51 | CPS ---
RT @ bedside to place patient on BIPAP for high CO2 and lethargy. Patient did not want to wear the BIPAP even after over 30 minutes of education on the purpose of the therapy and why it was ordered for her. She was A&O x3, was not in distress of any kind, and was 98% on 5L nasal cannula. Patient states she may be willing to try again for bedtime.
[2024-01-24] MEDS: Latanoprost 0.005% 1 Bottle 1 DRP EACH EYE (22:41)
--- NOTE | 2024-01-24 22:45 | NURSING ---
This RN offered to put pt on Bipap machine and explained the importance of putting it on even just for a few hours, but pt refused multiple times. Currently on 5L of oxygen, saturation of 98%, no SOB noted. Pt comfortably resting in bed w/ no further concerns.
[2024-01-25] VITALS (15 sets, daily range): BP systolic 93–148; BP diastolic 44–111; PULSE 64–86; RESP 13–18; TEMP 36.3–36.7; O2SAT 93–100
[2024-01-25] MEDS: Ipratropium/Albuterol Sulfate 3 ML AMPUL.NEB INHALATION ×3 (01:06→20:17)
[2024-01-25] MEDS: Piperacil/Tazobactam 3.375 GM in 0.9% Normal Saline (50mL MB+) 50 ML IV ×3 (05:39→23:33)
[2024-01-25] MEDS: Enoxaparin 30 MG/0.3 ML Syringe SC (05:39)
[2024-01-25 06:00] LABS: Absolute Lymphocyte Count 0.92 X10^3/uL (0.83-4.51); Absolute Neutrophil Count 5.4 X10^3/uL (2.0-7.7); Basophil# 0.05 X10^3/uL; Basophil% 0.7 % (0-1); Eosinophil# 0.19 X10^3/uL; Eosinophils% 2.6 % (0-5); Hematocrit 26.2 % (37-47); Hemoglobin 8.1 g/dL (12.0-15.0); Lymphocyte # 0.92 X10^3/ul (0.83-4.51); Lymphocyte % 12.8 % (19-41); Mean Corp Hgb Conc 30.9 g/dL (32-36); Mean Corpuscular Hgb 31.8 pg (27.0-32.0); Mean Corpuscular Volume 102.7 fL (81-99); Mean Platelet Vol. 9.7 fl (6.2-12.0); Monocyte# 0.57 X10^3/uL; Monocyte% 7.9 % (0-10); NRBC Flagged by Analyzer 0 % (0-5); Neutrophil # 5.41 X10^3/uL (2.7-7.7); Neutrophil % 75.6 % (47-70); Platelet Count 186 K/mm3 (150-450); RBC Distribution Width CV 14.9 % (11.6-14.6); RBC Distribution Width SD 56.1 fl (35.1-43.9); Red Blood Count 2.55 M/mm3 (4.2-5.4); White Blood Count 7.2 K/mm3 (4.4-11.0)
[2024-01-25 06:23] LABS: Anion Gap 3 (5-15); BUN 29 mg/dL (7-18); BUN/Creat Ratio 26.4 RATIO (10-20); Calcium,Total 8.1 mg/dL (8.5-10.1); Chloride 110 mmol/L (98-107); EST Glomerular Filtration Rate 51 mL/min (>60); Est Glom Filt Rate - Afr Amer 61 mL/min (>60); Estimated Creatinine Clearance 39.08 ml/min; Glucose 82 mg/dL (74-106); Potassium 4.1 mmol/L (3.5-5.1); Sodium Level 141 mmol/L (136-145)
--- NOTE | 2024-01-25 10:03 | CASEMGMT ---
Discharge Planning Updates sent via [facility] to [facility]. Requested confirmation that precert is not required. Awaiting response. Latoya Gerardo DC Planning Asst.
--- NOTE | 2024-01-25 10:34 | PN_ITS ---
Subjective Subjective Patient seen and examined. She is feeling much better today. She is alert and oriented and able to answer questions. She denies any fever, chills, cough, shortness of breath, nausea, vomiting or any other symptoms. Review of systems is otherwise negative. She is down to 3-4L of oxygen. Objective Data Objective Data Vital Signs: Vital Signs Temp Pulse Resp BP Pulse Ox O2 Del Method O2 Flow Rate 98.0 F 86 17 121/52 H 96 Nasal Cannula 4 01/25/24 08:15 01/25/24 08:15 01/25/24 08:15 01/25/24 08:15 01/25/24 08:15 01/25/24 08:19 01/25/24 08:19 FiO2 96 01/25/24 08:19 Oxygen Flow Rate (L/min) 4 Oxygen Delivery Method Nasal Cannula Weight: 165 lb 2.02 oz Body Mass Index (BMI) 28.3 Intake & Output: Intake and Output for Last 24 Hours 01/23/24 01/24/24 01/25/24 23:59 23:59 23:59 Intake Total 3328.33 / 3328.33 1050 / 1050 Output Total 800 / 800 100 / 100 Balance 2528.33 / 2528.33 950 / 950 Lab / Micro Data 01/25/24 05:23 01/25/24 05:23 Labs: Laboratory Results - last 24 hr 01/24/24 10:45: WBC 7.5, RBC 2.99 L, Hgb 9.5 L, Hct 30.8 L, MCV 103.0 H, MCH 31.8, MCHC 30.8 L, RDW Std Deviation 55.9 H, RDW Coeff of Natalie 14.8 H, Plt Count 198, MPV 9.4, Immature Gran % (Auto) 0.400, Neut % (Auto) 79.4 H, Lymph % (Auto) 10.4 L, Jay % (Auto) 8.9, Eos % (Auto) 0.4, Baso % (Auto) 0.5, Absolute Neuts (auto) 6.0, Absolute Lymphs (auto) 0.78 L, Nucleated RBC % 0, PT Cancelled, INR Cancelled, APTT Cancelled, Sodium 136, Potassium 5.0, Chloride 101, Carbon Dioxide 30.0, Anion Gap 5, BUN 33 H, Creatinine 1.55 H, Estim Creat Clear Calc 28.49, Est GFR (MDRD) Af Amer 41 L, Est GFR (MDRD) Non-Af 34 L, BUN/Creatinine Ratio 21.3 H, Glucose 117 H, Calcium 9.5, Total Bilirubin 0.30, AST 24, ALT 10 L , Alkaline Phosphatase 50, Total Protein 5.9 L, Albumin 2.9 L, Globulin 3.0, Albumin/Globulin Ratio 1.0 01/24/24 11:00: Urine Color Yellow, Urine Clarity Sl. Cloudy, Urine pH 5.0, Ur Specific [place] 1.020, Urine Protein 30 H, Urine Glucose (UA) Normal, Urine Ketones Negative, Urine Occult Blood Negative, Urine Nitrite Negative, Urine Bilirubin Negative, Urine Urobilinogen Normal, Ur Leukocyte Esterase Negative, Urine RBC 0 SEEN, Urine WBC 0 SEEN, Ur Squamous Epith Cells 0-5 SEEN, Urine Bacteria 0 SEEN, Urine Mucus 0 SEEN 01/24/24 11:17: PT 13.2, INR 1.0, APTT 25.2, Lactic Acid 1.2 01/25/24 05:23: WBC 7.2, RBC 2.55 L, Hgb 8.1 L, Hct 26.2 L, MCV 102.7 H, MCH 31.8, MCHC 30.9 L, RDW Std Deviation 56.1 H, RDW Coeff of Natalie 14.9 H, Plt Count 186, MPV 9.7, Immature Gran % (Auto) 0.400, Neut % (Auto) 75.6 H, Lymph % (Auto) 12.8 L, [place] % (Auto) 7.9, Eos % (Auto) 2.6, Baso % (Auto) 0.7, Absolute Neuts (auto) 5.4, Absolute Lymphs (auto) 0.92, Nucleated RBC % 0, Sodium 141, Potassium 4.1, Chloride 110 H, Carbon Dioxide 28.0, Anion Gap 3 L, BUN 29 H, C reatinine 1.10 H, Estim Creat Clear Calc 39.08, Est GFR (MDRD) Af Amer 61, Est GFR (MDRD) Non-Af 51 L, BUN/Creatinine Ratio 26.4 H, Glucose 82, Calcium 8.1 L ABG Data ABG results: ABG 01/24/24 19:31 Specimen Type ART Sample Site R Brach pH 7.29 L Bicarbonate Actual 29.5 H Total CO2 31 Base Excess 3 H O2 Saturation 93 L O2 % 5.0 ABG pCO2 61.2 H ABG pO2 77 Edgar Test N/A O2 Delivery Device Cannula Vent Mode Not entered Radiography Diagnostic Testing: Radiology Impression Chest X-Ray 01/24/24 11:30 IMPRESSION: Left basilar consolidation, concerning for pneumonia with mild pleural effusion. Mild nodular opacities in the right mid and lower lung, possibly infectious. Recommend follow-up to resolution. Electronically Signed: Noemí Mcfarland MD at 12:08 EDT , Rhythm Strip Rhythm Strip: Sinus Rhythm Rate: 99 Ectopy: None Physical Exam Const alert, oriented x3 and no apparent distress General Appearance: cooperative HEENT normocephalic and head/scalp atraumatic Eyes PERRL, EOMs intact bilaterally and conjunctivae normal Neck no lymphadenopathy Resp Resp Narrative: Moderately diminished breath sounds bibasilarly. minimal crackles. On 3-4L of oxygen by nasal canula Cardio regular rate, regular rhythm, S1 normal heart sound, S2 normal heart sound and no murmurs GI normal to inspection, nondistended, normoactive bowel sounds, soft to palpation, non-tender and non-distended Extremity normal to inspection, full ROM and no clubbing, cyanosis or edema Neuro oriented x3, CN's II-XII intact bilaterally, moves all extremities and no focal motor deficits Neuro Narrative: confused Sensorium / Orientation: awake and alert Motor Exam: strength 5/5 throughout and general weakness Psych thought process normal, cooperative and affect normal Appearance: appropriate Assessment & Plan Assessment/Plan (1) Fever: (2) Hypoxia: (3) Acute kidney injury: PLAN: Plan #Acute hypoxic respiratory failure due to probable aspiration pneumonia * now down to 3-4L of oxygen. Feels much better. * ABG done last night showed CO2 of ~ 60, and she was placed on BIPAP. * on iV zosyn * sputum and blood cultures as well as urine for strep and legionella pending * breahting treatment with bronchodilators * titrate oxygen to maintain sats >90% * * #AIDAN: Creatinine is down to 1.1 from 1.55 on admission. Baseline is around 0.6- 0.8. Improving. #History of breast cancer: S/p modified radical mastectomy of the left breast. On Verzenio #Hypothyroidism: On Synthroid #Hypertension: On lisinopril and metoprolol DVT prophylaxis: Lovenox CODE STATUS: * full code, as confirmed from SNF Charges/Coding Visit Charges Inpatient E&M: 64840 Subs Hosp L2
--- NOTE | 2024-01-25 10:42 | CASEMGMT ---
Patient is from [facility]. SW met with patient. Introduced self and role at [facility]. Patient confirmed her plan is to return to [facility]. Plan: d/c back to [facility] under intermediate level of care. Autumn MADSEN
[2024-01-25] MEDS: Dorzolamide 2% 10ml Bottle 1 DRP OPHTHALMIC (11:28)
[2024-01-25] MEDS: Timolol 0.5% 5ML OPTH.BTL 5 DRP OPHTHALMIC (11:28)
[2024-01-25] MEDS: Aspirin 81 MG TAB.CHEW PO (11:39)
[2024-01-25] MEDS: Meloxicam 7.5 MG Tablet PO (11:40)
[2024-01-25] MEDS: Metoprolol Tartrate 50 MG Tablet PO ×2 (11:40→16:52)
[2024-01-25] MEDS: DULoxetine Hcl 60 MG Capsule PO (11:40)
[2024-01-25] MEDS: Lisinopril 5 MG Tablet PO (11:41)
[2024-01-25] MEDS: Pregabalin 75 MG Capsule PO (11:42)
--- NOTE | 2024-01-25 15:53 | CASEMGMT ---
Garrett brought in patient's Abemaciclib. RICARDO gave this to patient's RN Dominic. RICARDO asked Garrett about patient's eye drops. Autumn Wright WORK[employer] PROGRAM DIRECTOR C[employer]
--- NOTE | 2024-01-25 21:20 | RAD_ITS ---
INDICATION: Fall, pain EXAMINATION/TECHNIQUE: X-RAY - RIGHT XR Tibia/Fibula 2 Views COMPARISON: None. FINDINGS: SOFT TISSUES: Unremarkable. BONES/JOINTS: No fracture or dislocation. Degenerative changes of the knee. No erosive changes. RAD/Tibia & Fibula 2 Views IMPRESSION: No fracture. Electronically Signed: Joaquin Wray DO at 23:43 EDT ,
--- NOTE | 2024-01-25 21:20 | RAD_ITS ---
INDICATION: Fall, pain EXAMINATION/TECHNIQUE: X-RAY - RIGHT XR Humerus Min 2 Views COMPARISON: None. FINDINGS: SOFT TISSUES: Unremarkable. BONES/JOINTS: No fracture or dislocation. Acromioclavicular joint degenerative change. No erosive changes. RAD/Humerus min 2 Views IMPRESSION: No fracture. Electronically Signed: Joaquin Wray DO at 23:47 EDT ,
--- NOTE | 2024-01-25 21:20 | RAD_ITS ---
INDICATION: Fall, pain EXAMINATION/TECHNIQUE: X-RAY - RIGHT XR Shoulder Min 2 Views COMPARISON: None. FINDINGS: SOFT TISSUES: Unremarkable. BONES/JOINTS: No acute fracture or dislocation. Moderate degenerative changes of the acromioclavicular joint. No erosive changes. Chronic right rib fracture. RAD/Shoulder min 2 Views IMPRESSION: No acute fracture or dislocation. Electronically Signed: Joaquin Wray DO at 23:46 EDT ,
--- NOTE | 2024-01-25 21:20 | CT_ITS ---
STUDY: CT BRAIN WITHOUT CONTRAST REASON FOR EXAM: Female, 83 years old. Fall RADIATION DOSAGE (If Supplied By Facility): CTDIvol = ( 44.99 ) mGy, DLP = ( 846.73 ) mGycm TECHNIQUE: Transaxial CT imaging of the brain was performed without administration of intravenous contrast material. Individualized dose optimization techniques were used for this CT. COMPARISON: No relevant priors. FINDINGS: Normal soft tissue structures. Normal calvarium. Normal size ventricles and extra-axial spaces for the patient''s age. Normal white matter tracts of the cerebral hemispheres. Normal basal ganglia and thalami. Normal brainstem. Normal cerebellum. There is a calcified density in the left frontal parietal region without edema or mass effect of uncertain etiology possibly due to old inflammatory disease or old calcified hematoma.. This has decreased in size and demonstrates increased calcification since prior exam There is no intracranial hemorrhage. There are no findings of an acute ischemic infarction. Minor mucosal thickening of the right maxillary and left ethmoid air cells. Postsurgical changes of the orbits. CT/Brain/Head without Contrast IMPRESSION: No evidence for acute intracranial hemorrhage. Other findings as above Electronically Signed: Joaquin Gallagher MD at 22:53 EDT ,
--- NOTE | 2024-01-25 21:20 | RAD_ITS ---
INDICATION: fall, pain EXAMINATION/TECHNIQUE: X-RAY - RIGHT XR Elbow Min 3 Views COMPARISON: None. FINDINGS: SOFT TISSUES: Unremarkable. No evidence of an elbow effusion. BONES/JOINTS: No fracture or dislocation. No significant degenerative changes. No erosive changes. RAD/Elbow min 3 Views IMPRESSION: No fracture or dislocation. Electronically Signed: Joaquin Wray DO at 23:42 EDT ,
--- NOTE | 2024-01-25 21:20 | RAD_ITS ---
INDICATION: fall, pain EXAMINATION/TECHNIQUE: X-RAY - RIGHT XR Wrist 2 Views COMPARISON: None. FINDINGS: SOFT TISSUES: Unremarkable. BONES/JOINTS: No fracture or dislocation. Moderate degenerative changes. Radiocarpal and ulnocarpal chondrocalcinosis. No erosive changes. RAD/Wrist 2 Views IMPRESSION: No fracture or dislocation. Electronically Signed: Joaquin Wray DO at 23:45 EDT ,
--- NOTE | 2024-01-25 21:20 | RAD_ITS ---
INDICATION: Fall, pain EXAMINATION/TECHNIQUE: X-RAY - RIGHT XR Hand 2 Views COMPARISON: None. FINDINGS: SOFT TISSUES: Unremarkable. BONES/JOINTS: No fracture or dislocation. Moderate degenerative changes. No erosive changes. RAD/Hand 2 Views IMPRESSION: No fracture or dislocation. Electronically Signed: Joaquin Wray DO at 23:50 EDT ,
--- NOTE | 2024-01-25 21:20 | PCM.HOSP.N ---
Hospitalist Note Patient with unwitnessed fall. Discomfort to RUE evaluation. Will obtain CT head and obtain plain films of the RUE to be cautious.
[2024-01-25] MEDS: 0.9% Saline Lock 10 ML Syringe IV (23:35)
[2024-01-26] VITALS (9 sets, daily range): BP systolic 125–154; BP diastolic 53–70; PULSE 69–88; RESP 16–20; TEMP 36.4–36.6; O2SAT 91–100
[2024-01-26] MEDS: Piperacil/Tazobactam 3.375 GM in 0.9% Normal Saline (50mL MB+) 50 ML IV ×3 (05:36→22:31)
[2024-01-26 06:51] LABS: Absolute Lymphocyte Count 0.77 X10^3/uL (0.83-4.51); Absolute Neutrophil Count 4.8 X10^3/uL (2.0-7.7); Basophil# 0.04 X10^3/uL; Basophil% 0.6 % (0-1); Eosinophils% 3.2 % (0-5); Hematocrit 26.5 % (37-47); Hemoglobin 8.2 g/dL (12.0-15.0); Lymphocyte # 0.77 X10^3/ul (0.83-4.51); Lymphocyte % 12.2 % (19-41); Mean Corp Hgb Conc 30.9 g/dL (32-36); Mean Corpuscular Hgb 32.2 pg (27.0-32.0); Mean Corpuscular Volume 103.9 fL (81-99); Mean Platelet Vol. 9.9 fl (6.2-12.0); Monocyte# 0.45 X10^3/uL; Monocyte% 7.1 % (0-10); NRBC Flagged by Analyzer 0 % (0-5); Neutrophil % 76.1 % (47-70); Platelet Count 181 K/mm3 (150-450); RBC Distribution Width CV 14.9 % (11.6-14.6); RBC Distribution Width SD 57.1 fl (35.1-43.9); Red Blood Count 2.55 M/mm3 (4.2-5.4); White Blood Count 6.3 K/mm3 (4.4-11.0)
[2024-01-26] MEDS: Ipratropium/Albuterol Sulfate 3 ML AMPUL.NEB INHALATION ×3 (07:35→20:04)
[2024-01-26 08:00] LABS: Anion Gap 6 (5-15); BUN 18 mg/dL (7-18); BUN/Creat Ratio 19.8 RATIO (10-20); Calcium,Total 8.9 mg/dL (8.5-10.1); Chloride 108 mmol/L (98-107); Creatinine, Serum 0.91 mg/dL (0.55-1.02); EST Glomerular Filtration Rate 63 mL/min (>60); Est Glom Filt Rate - Afr Amer 76 mL/min (>60); Estimated Creatinine Clearance 47.24 ml/min; Glucose 85 mg/dL (74-106); Potassium 3.9 mmol/L (3.5-5.1); Sodium Level 141 mmol/L (136-145)
--- NOTE | 2024-01-26 10:56 | PN_ITS ---
Subjective Subjective Patient seen and examined. She says she felt much better today. She had no active complaints. She is on room air. Review of symptoms otherwise negative. 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 Objective Data Objective Data Vital Signs: Vital Signs Temp Pulse Resp BP Pulse Ox O2 Del Method O2 Flow Rate 97.6 F L 73 18 141/60 H 96 Nasal Cannula 2 01/26/24 10:01/26/24 10:01/26/24 10:25 01/26/24 10:25 01/26/24 10:01/26/24 10:01/26/24 10:32 FiO2 96 01/25/24 08:19 Oxygen Flow Rate (L/min) 2 Oxygen Delivery Method Nasal Cannula Weight: 165 lb 2.02 oz Body Mass Index (BMI) 28.3 Intake & Output: Intake and Output for Last 24 Hours 01/24/24 01/25/24 01/26/24 23:59 23:59 23:59 Intake Total 3328.33 / 3328.33 1150 / 1150 100 / 100 Output Total 800 / 800 700 / 700 400 / 400 Balance 2528.33 / 2528.33 450 / 450 -300 / -300 Lab / Micro Data 01/26/24 06:40 01/26/24 06:12 Labs: Laboratory Results - last 24 hr 01/26/24 06:12: Sodium 141, Potassium 3.9, Chloride 108 H, Carbon Dioxide 27.0, Anion Gap 6, BUN 18, Creatinine 0.91, Estim Creat Clear Calc 47.24, Est GFR (MDRD) Af Amer 76, Est GFR (MDRD) Non-Af 63, BUN/Creatinine Ratio 19.8, Glucose 85, Calcium 8.9 01/26/24 06:40: WBC 6.3, RBC 2.55 L, Hgb 8.2 L, Hct 26.5 L, MCV 103.9 H, MCH 32.2 H, MCHC 30.9 L, RDW Std Deviation 57.1 H, RDW Coeff of Natalie 14.9 H, Plt Count 181, MPV 9.9, Immature Gran % (Auto) 0.800, Neut % (Auto) 76.1 H, Lymph % (Auto) 12.2 L, [place] % (Auto) 7.1, Eos % (Auto) 3.2, Baso % (Auto) 0.6, Absolute Neuts (auto) 4.8, Absolute Lymphs (auto) 0.77 L, Nucleated RBC % 0 Micro: Microbiology 01/24/24 11:00 Urine Catheter - Catheter Urine Culture - Final Gram positive organism 01/25/24 11:00 Urine Catheter - Catheter Legionella Antigen - Final 01/25/24 11:00 Urine Catheter - Catheter Streptococcus pneumoniae Antigen (M - Final Radiography Diagnostic Testing: Radiology Impression Brain CT 01/25/24 21:20 IMPRESSION: No evidence for acute intracranial hemorrhage. Other findings as above Electronically Signed: Joaquin Gallagher MD at 22:53 EDT Reading Location ID and State: [facility] / [place] Tel , Service support , Elbow X-Ray 01/25/24 21:20 IMPRESSION: No fracture or dislocation. Electronically Signed: Joaquin Wray DO at 23:42 EDT , Hand X-Ray 01/25/24 21:20 IMPRESSION: No fracture or dislocation. Electronically Signed: Joaquin Wray DO at 23:50 EDT , Humerus X-Ray 01/25/24 21:20 IMPRESSION: No fracture. Electronically Signed: Joaquin Wray DO at 23:47 EDT , Shoulder X-Ray 01/25/24 21:20 IMPRESSION: No acute fracture or dislocation. Electronically Signed: Joaquin Wray DO at 23:46 EDT , Tibia/Fibula X-Ray 01/25/24 21:20 IMPRESSION: No fracture. Electronically Signed: Joaquin Wray DO at 23:43 EDT , Wrist X-Ray 01/25/24 21:20 IMPRESSION: No fracture or dislocation. Electronically Signed: Joaquin Wray DO at 23:45 EDT , Rhythm Strip Rhythm Strip: Sinus Rhythm Rate: 99 Ectopy: None Physical Exam Const alert and no apparent distress Constitutional Narrative: alert to self and time but not place General Appearance: cooperative Orientation / Consciousness: confused HEENT normocephalic and head/scalp atraumatic Eyes PERRL, EOMs intact bilaterally and conjunctivae normal Neck no lymphadenopathy Resp Resp Narrative: Moderately diminished breath sounds bibasilarly. minimal crackles. on room air. Cardio regular rate, regular rhythm, S1 normal heart sound, S2 normal heart sound and no murmurs GI normal to inspection, nondistended, normoactive bowel sounds, soft to palpation, non-tender and non-distended Extremity normal to inspection, full ROM and no clubbing, cyanosis or edema General Extremity: no tenderness to palpation of joints or extremities Skin General Skin Exam: no breakdown Neuro CN's II-XII intact bilaterally, moves all extremities and no focal motor deficits Neuro Narrative: confused Sensorium / Orientation: awake and alert Motor Exam: strength 5/5 throughout and general weakness Psych thought process normal, cooperative and affect normal Appearance: appropriate Assessment & Plan Assessment/Plan (1) Fever: (2) Hypoxia: (3) Acute kidney injury: PLAN: Plan #Acute hypoxic respiratory failure due to probable aspiration pneumonia * now on room air. * ABG done last night showed CO2 of ~ 60, and she was placed on BIPAP. * on iV zosyn * sputum cultures negative; urine for strep and legionella also negative. * blood cultures pending * breathing treatment with bronchodilators * titrate oxygen to maintain sats >90% * * #AIDAN: resolved. Cr down to 0.91. #History of breast cancer: S/p modified radical mastectomy of the left breast. On Verzenio #Hypothyroidism: On Synthroid #Hypertension: On lisinopril and metoprolol DVT prophylaxis: Lovenox CODE STATUS: * full code, as confirmed from SNF * Disposition: For likely discharge back to SNF tomorrow Charges/Coding Visit Charges Inpatient E&M: 49185 Subs Hosp L2
--- NOTE | 2024-01-26 15:25 | CASEMGMT ---
RICARDO sent updates to [employer] via [employer]. Autumn Wright QUALITY CONTROL EXPERT DIRECTOR OF [employer]IONAL SALES
[2024-01-26] MEDS: Metoprolol Tartrate 50 MG Tablet PO (16:40)
[2024-01-26] MEDS: Timolol 0.5% 5ML OPTH.BTL 5 DRP OPHTHALMIC (22:34)
[2024-01-26] MEDS: Latanoprost 0.005% 1 Bottle 1 DRP EACH EYE (22:34)
[2024-01-26] MEDS: Dorzolamide 2% 10ml Bottle 1 DRP OPHTHALMIC (22:35)
[2024-01-26] MEDS: ABEMACICLIB 50 MG PO (22:37)
[2024-01-26] MEDS: Pregabalin 75 MG Capsule PO (22:43)
[2024-01-27] VITALS (7 sets, daily range): BP systolic 122–138; BP diastolic 64–78; PULSE 70–74; RESP 14–20; TEMP 36.6–36.8; O2SAT 92–98
[2024-01-27 06:07] LABS: Absolute Lymphocyte Count 0.76 X10^3/uL (0.83-4.51); Absolute Neutrophil Count 3.1 X10^3/uL (2.0-7.7); Basophil# 0.05 X10^3/uL; Eosinophil# 0.33 X10^3/uL; Eosinophils% 6.9 % (0-5); Hematocrit 27.1 % (37-47); Hemoglobin 8.3 g/dL (12.0-15.0); Lymphocyte # 0.76 X10^3/ul (0.83-4.51); Lymphocyte % 15.8 % (19-41); Mean Corp Hgb Conc 30.6 g/dL (32-36); Mean Corpuscular Hgb 31.2 pg (27.0-32.0); Mean Corpuscular Volume 101.9 fL (81-99); Mean Platelet Vol. 9.4 fl (6.2-12.0); Monocyte# 0.52 X10^3/uL; Monocyte% 10.8 % (0-10); NRBC Flagged by Analyzer 0 % (0-5); Neutrophil # 3.13 X10^3/uL (2.7-7.7); Neutrophil % 65.1 % (47-70); Platelet Count 179 K/mm3 (150-450); RBC Distribution Width CV 14.6 % (11.6-14.6); RBC Distribution Width SD 54.3 fl (35.1-43.9); Red Blood Count 2.66 M/mm3 (4.2-5.4); White Blood Count 4.8 K/mm3 (4.4-11.0)
--- NOTE | 2024-01-27 06:33 | PCM.HOSP.N ---
Hospitalist Note Patient continues to pull out IV. From notes plan return to today to SNF potentially. Will hold on additional IV and transition to augmentin as now the 3rd time she has pulled out her IV.
[2024-01-27] MEDS: Levothyroxine 100 MCG Tablet PO (06:45)
[2024-01-27] MEDS: Enoxaparin 40 MG/0.4 ML Syringe SC (06:46)
[2024-01-27 06:47] LABS: Anion Gap 4 (5-15); BUN 15 mg/dL (7-18); BUN/Creat Ratio 21.5 RATIO (10-20); Calcium,Total 8.8 mg/dL (8.5-10.1); Chloride 109 mmol/L (98-107); EST Glomerular Filtration Rate 85 mL/min (>60); Est Glom Filt Rate - Afr Amer 103 mL/min (>60); Estimated Creatinine Clearance 53.73 ml/min; Glucose 76 mg/dL (74-106); Potassium 3.5 mmol/L (3.5-5.1); Sodium Level 142 mmol/L (136-145)
[2024-01-27] MEDS: Ipratropium/Albuterol Sulfate 3 ML AMPUL.NEB INHALATION ×2 (07:24→13:12)
--- NOTE | 2024-01-27 12:00 | DS.PCM_ITS ---
Providers Date of Admission: 01/24/24 Date of Discharge: 01/27/24 Primary Care Physician: Dr. Floridalma Torres MD Reason For Visit: ACUTE HYPOXIC RESPIRATORY FAILURE DUE TO Diagnosis Discharge Diagnosis (1) Fever: Status: Acute Code(s): R50.9 - Fever, unspecified (2) Hypoxia: Status: Acute Code(s): R09.02 - Hypoxemia (3) Acute kidney injury: Status: Acute Code(s): N17.9 - Acute kidney failure, unspecified Plan #Acute hypoxic respiratory failure due to probable aspiration pneumonia * now on room air. * ABG done last night showed CO2 of ~ 60, and she was placed on BIPAP. * on iV zosyn * sputum cultures negative; urine for strep and legionella also negative. * blood cultures pending * breathing treatment with bronchodilators * titrate oxygen to maintain sats >90% * * #AIDAN: resolved. Cr down to 0.91. #History of breast cancer: S/p modified radical mastectomy of the left breast. On Verzenio #Hypothyroidism: On Synthroid #Hypertension: On lisinopril and metoprolol DVT prophylaxis: Lovenox CODE STATUS: * full code, as confirmed from SNF * Disposition: For likely discharge back to SNF tomorrow Medications at Discharge Home Medications metoprolol tartrate 50 mg tablet 50 mg PO BIDCM HEART 07/14/13 acetaminophen 500 mg tablet 1,000 mg PO TID PRN Pain 08/12/18 levothyroxine 100 mcg tablet 100 mcg PO DAILY thyroid 08/12/18 latanoprost 0.005 % eye drops 1 drp EACH EYE QHS eye 11/24/19 abemaciclib 50 mg tablet (Verzenio) 50 mg PO BID CANCER TREATMENT 01/24/24 albuterol sulfate 2.5 mg/3 mL (0.083 %) solution for nebulization 1.25 mg inhalation Q6H PRN shortness of breath or wheezing 01/24/24 aspirin 81 mg capsule 81 mg PO DAILY 01/24/24 benzonatate 100 mg capsule 100 mg PO Q8H PRN cough 01/24/24 dorzolamide-timolol (PF) 2 %-0.5 % eye drops in a dropperette 1 drp ophthalmic (eye) BID 01/24/24 duloxetine 30 mg capsule,delayed release (Cymbalta) 60 mg PO DAILY 01/24/24 guaifenesin 600 mg tablet, extended release 12 hr (Mucinex) 600 mg PO Q12H PRN congestion 01/24/24 lisinopril 5 mg tablet 5 mg PO DAILY 01/24/24 lorazepam 0.5 mg tablet 0.25 mg PO Q12H PRN Anxiety 01/24/24 magnesium hydroxide 400 mg/5 mL oral suspension (Milk of Magnesia) 30 ml PO DAILY PRN constipation 01/24/24 meloxicam 7.5 mg tablet 7.5 mg PO DAILY 01/24/24 mineral oil (Fleet Mineral Oil enema) 118 ml [place] DAILY PRN constipation 01/24/24 ondansetron HCl 4 mg tablet 4 mg PO Q6H PRN nausea and vomiting 01/24/24 peg 400-propylene glycol 0.4 %-0.3 % eye drops (Lubricant Eye (PG-PEG 400)) 1 drp EACH EYE TID PRN dry eye(s) 01/24/24 polyethylene glycol 3350 17 gram/dose oral powder (ClearLax) 17 g PO DAILY PRN constipation 01/24/24 pregabalin 75 mg capsule 75 mg PO BID 01/24/24 tetrahydrozoline 0.05 % eye drops (Eye Drops (tetrahydrozoline)) 1 drp EACH EYE Q2H PRN dry eyes 01/24/24 amoxicillin 875 mg-potassium clavulanate 125 mg tablet 1 tab PO BID #10 tabs 01/27/24 Hospital Course Operations None Procedures None Summary of Care Provided Minutes Spent on Discharge: 65 Hospital Course: JORGE LUIS BARRERA, is a 83 F with a PMH as outlined including breast cancer who presents via the ED on 01/24/2024 with a complaint of altered mental status and shortness of breath. She resides at [facility]. She was fine until the middle of last night when she started vomiting. She vomited several times during the night. SHe subsequenly developed fever and chills and shortness of breath; she was saturating at 58% on room air and required 15L to get to 96% in the ED. patient could not give me much of her history and just kept asking me to go talk to the ED doctor. Vitals in the ED were blood pressure 118/57, pulse rate of 89 and respiratory to 15. She was saturating at 99% on 15 L of oxygen by nasal cannula. CBC showed WBC of 7.5, hemoglobin of 9.5 and platelets of 198. INR was 1. Chemistry showed sodium of 136 with potassium of 5 and creatinine of 1.55; her baseline creatinine is less than 1. Urinalysis showed no evidence of UTI. Chest x-ray showed left basilar consolidation concerning for pneumonia with mild pleural effusion and mild nodular opacities in the right mid and lower lung possibly infectious. She was started on IV ceftriaxone and azithromycin in the ED. She was admitted to be managed for acute hypoxic respiratory failure due to probable aspiration pneumonia. She was started on IV Zosyn. She was initially requiring 15 L of oxygen in the ED but this was gradually weaned down to 5 L and then she was weaned down to room air. Blood cultures and sputum cultures were all negative and urine for strep and Legionella was also negative. Patient shortness of breath improved and she felt much better. She was discharged to the intermediate facility on 01/27/2024. She was discharged on 01/27/2024 on p.o. Augmentin 1 tablet twice daily for 5 days. She is follow-up with her primary care doctor within 1 to 2 weeks. Patient seen and examined prior to discharge. She had no active complaints. She had an uneventful night and review of systems otherwise negative. Labs and vitals reviewed. Home medication reviewed and reconciled. Physical Exam Const alert and no apparent distress Constitutional Narrative: alert to self and time but not place General Appearance: cooperative Orientation / Consciousness: confused and disoriented HEENT normocephalic and head/scalp atraumatic Eyes PERRL, EOMs intact bilaterally and conjunctivae normal Neck no lymphadenopathy Resp Resp Narrative: Moderately diminished breath sounds bibasilarly. minimal crackles. on room air. Cardio regular rate, regular rhythm, S1 normal heart sound, S2 normal heart sound and no murmurs GI normal to inspection, nondistended, normoactive bowel sounds, soft to palpation, non-tender and non-distended Extremity normal to inspection, full ROM and no clubbing, cyanosis or edema General Extremity: no tenderness to palpation of joints or extremities Skin General Skin Exam: no breakdown Neuro oriented x3, CN's II-XII intact bilaterally, moves all extremities and no focal motor deficits Neuro Narrative: confused Sensorium / Orientation: awake and alert Motor Exam: strength 5/5 throughout and general weakness Psych thought process normal, cooperative and affect normal Appearance: appropriate Weight / BMI Weight Weight: 165 lb 2.02 oz Body Mass Index (BMI) 28.3 ABG / Lab / Microbiology Data 01/27/24 05:52 01/27/24 05:52 Laboratory: Laboratory Results - last 24 hr 01/27/24 05:52: WBC 4.8, RBC 2.66 L, Hgb 8.3 L, Hct 27.1 L, MCV 101.9 H, MCH 31.2, MCHC 30.6 L, RDW Std Deviation 54.3 H, RDW Coeff of Natalie 14.6, Plt Count 179, MPV 9.4, Immature Gran % (Auto) 0.400, Neut % (Auto) 65.1, Lymph % (Auto) 15.8 L, [place] % (Auto) 10.8 H, Eos % (Auto) 6.9 H, Baso % (Auto) 1.0, Absolute Neuts (auto) 3.1, Absolute Lymphs (auto) 0.76 L, Nucleated RBC % 0, Sodium 142, Potassium 3.5, Chloride 109 H, Carbon Dioxide 29.0, Anion Gap 4 L, BUN 15, Creatinine 0.70, Estim Creat Clear Calc 53.73, Est GFR (MDRD) Af Amer 103, Est GFR (MDRD) Non-Af 85, BUN/Creatinine Ratio 21.5 H, Glucose 76, Calcium 8.8 Microbiology: Microbiology 01/24/24 11:17 Blood Culture (Wb) - Anticubital Left Blood Culture - Preliminary No growth in 48 hours. 01/24/24 11:00 Urine Catheter - Catheter Urine Culture - Final Gram positive organism 01/25/24 11:00 Urine Catheter - Catheter Legionella Antigen - Final 01/25/24 11:00 Urine Catheter - Catheter Streptococcus pneumoniae Antigen (M - Final D/C Instructions Discharge Diet: Low fat / Low cholesterol Discharge Activity: Return to Normal Activity Weight Bearing Status: Weight bearing as tolerated Call your doctor if you observe: Fever of 101 or Higher, Shortness of breath, Dizziness, Swelling in the ankles and Chest pain Meaningful Use Info Meaningful Use Meaningful Use Diagnoses (Choose all that apply): None applicable Ischemic Stroke Statin Dosing Therapy Reference: STATIN DOSE THERAPY REFERENCE: * Patients > 75 years receive moderate or high dose statin therapy. * Patients 75 years or YOUNGER should receive HIGH intensity statin dose unless contraindicated. You will be required to document reason for non-treatment if statin daily dose does not meet guidelines. HIGH DOSE STATIN THERAPY DAILY Atorvastatin > than or = to 40 mg Rosuvastatin > than or = to 20 mg Amlodipine + Atorvastatin > than or = to 2.5/40 mg Ezetimibe + Simvastatin 10/80 mg Simvastatin 80mg Discharge Plan Admission Admit Date/Time: 01/24/24 12:27 Primary Reason for Your Visit: acute hypoxic respiratory failure, aspiration pneumonia Attending Provider: Dimple Luis Primary Care Provider: Floridalma Torres Instructions Patient Instructions: Dysphagia Aspiration Tx Discharge Orders/Prescriptions Prescriptions: New amoxicillin-pot clavulanate 875-125 mg Tablet 1 tab PO BID Qty: 10 0RF Continued metoprolol tartrate 50 MG tablet 50 mg PO BIDCM Rx Instructions: HOLD IF SBP < 100 OR DBP < 60 acetaminophen 500 MG tablet 1,000 mg PO TID PRN (Reason: Pain) Rx Instructions: DO NOT EXCEED 4GM IN 24 HOURS levothyroxine 100 MCG tablet 100 mcg PO DAILY latanoprost 1 DROP bottle 1 drp EACH EYE QHS aspirin 81 mg capsule 81 mg PO DAILY lisinopril 5 mg tablet 5 mg PO DAILY pregabalin 75 mg capsule 75 mg PO BID albuterol sulfate 2.5 mg /3 mL (0.083 %) solution for nebulization 1.25 mg inhalation Q6H PRN (Reason: shortness of breath or wheezing) dorzolamide-timolol (PF) 2-0.5 % dropperette 1 drp ophthalmic (eye) BID Rx Instructions: INSTILL 1 DROP INTO BOTH EYES TWICE DAILY duloxetine [Cymbalta] 30 mg capsule,delayed release(DR/EC) 60 mg PO DAILY mineral oil [Fleet Mineral Oil] Enema 118 ml VA DAILY PRN (Reason: constipation) Rx Instructions: ADMINISTER ONCE DAILY IF NO BM AFTER RECIEVING SUPPOSITORY. IF NO BM WITHIN 1 HOUR AFTER RECIEVING ENEMA, NOTIFY MD. meloxicam 7.5 mg tablet 7.5 mg PO DAILY magnesium hydroxide [Milk of Magnesia] 400 mg/5 mL suspension 30 ml PO DAILY PRN (Reason: constipation) Rx Instructions: ADMINISTER IF NO BM IN 3 CONSECUTIVE DAYS guaifenesin [Mucinex] 600 mg tablet extended release 12hr 600 mg PO Q12H PRN (Reason: congestion) polyethylene glycol 3350 [ClearLax] 17 gram/dose powder 17 g PO DAILY PRN (Reason: constipation) Lubricant Eye (PG-PEG 400) 0.4-0.3 % drops 1 drp EACH EYE TID PRN (Reason: dry eye(s)) benzonatate 100 mg capsule 100 mg PO Q8H PRN (Reason: cough) Verzenio 50 mg tablet 50 mg PO BID tetrahydrozoline [Eye Drops (tetrahydrozoline)] 0.05 % drops 1 drp EACH EYE Q2H PRN (Reason: dry eyes) ondansetron HCl 4 mg tablet 4 mg PO Q6H PRN (Reason: nausea and vomiting) lorazepam 0.5 MG tablet 0.25 mg PO Q12H PRN (Reason: Anxiety) Referrals / Follow Up: Floridalma Torres MD [Primary Care Provider] - Within 1 Week Disposition Disposition (needs filled in before D/C Order can be placed): Intermediate Facility Charges/Coding Visit Charges Inpatient E&M: 30818 Disch Hosp >30min
--- NOTE | 2024-01-27 12:53 | TREXTCAR_ITS ---
Diet Diet Order/Speech Therapy: 01/24/24 14:10 Diet: Cardiac - Heart Healthy Food consistency:: Easy to Chew Liquid Consistency:: Regular/Thin Diet Comments: Direct staff supervision and assistance feeding Routine Orders/Code Status Enema Type: Fleetz Enema Frequency: Daily PRN Suppository Type: Dulcolax 10mg Suppository Frequency: Daily PRN O2 Frequency: PRN Keep PO Greater than or Equal to (%): 90 Therapies Weight Bearing: Weight bearing as tolerated Physical Therapy: Eval and Treat Occupational Therapy: Eval and Treat Problem/Diagnosis (1) Fever: Status: Acute Code(s): R50.9 - Fever, unspecified (2) Hypoxia: Status: Acute Code(s): R09.02 - Hypoxemia (3) Acute kidney injury: Status: Acute Code(s): N17.9 - Acute kidney failure, unspecified Plan #Acute hypoxic respiratory failure due to probable aspiration pneumonia * now on room air. * ABG done last night showed CO2 of ~ 60, and she was placed on BIPAP. * on iV zosyn * sputum cultures negative; urine for strep and legionella also negative. * blood cultures pending * breathing treatment with bronchodilators * titrate oxygen to maintain sats >90% * * #AIDAN: resolved. Cr down to 0.91. #History of breast cancer: S/p modified radical mastectomy of the left breast. On Verzenio #Hypothyroidism: On Synthroid #Hypertension: On lisinopril and metoprolol DVT prophylaxis: Lovenox CODE STATUS: * full code, as confirmed from SNF * Disposition: For likely discharge back to SNF tomorrow Allergies/Procedures Done in Hospital Allergies shellfish derived Allergy (Verified 03/28/22 13:30) Hives tetracycline (Tetracycline) Allergy (Verified 03/28/22 13:30) pt unsure alcohol Adverse Reaction (Verified 03/28/22 13:30) Unknown promethazine (From Phenergan) Adverse Reaction (Verified 03/28/22 13:30) Other CONFUSION Procedures: None Type of Care/Length of Stay Estimated LOS: More Than 30 Days Type of Care Needed: Intermediate Rehab Potential: Fair Prognosis: Fair Additional Orders/Day of Discharge Day of Discharge: 01/27/24 Dietary and Speech Recommendations Dietitian Recommendations/Changes: Continue Cardiac diet with texture/consistency per HARMONIC ANALYST to manage medical conditions. Discharge Plan Admission Admit Date/Time: 01/24/24 12:27 Primary Reason for Your Visit: acute hypoxic respiratory failure, aspiration pneumonia Attending Provider: Dimple Luis Primary Care Provider: Floridalma Torres Instructions Patient Instructions: Dysphagia Aspiration Tx Discharge Orders/Prescriptions Prescriptions: New amoxicillin-pot clavulanate 875-125 mg Tablet 1 tab PO BID Qty: 10 0RF Continued metoprolol tartrate 50 MG tablet 50 mg PO BIDCM Rx Instructions: HOLD IF SBP < 100 OR DBP < 60 acetaminophen 500 MG tablet 1,000 mg PO TID PRN (Reason: Pain) Rx Instructions: DO NOT EXCEED 4GM IN 24 HOURS levothyroxine 100 MCG tablet 100 mcg PO DAILY latanoprost 1 DROP bottle 1 drp EACH EYE QHS aspirin 81 mg capsule 81 mg PO DAILY lisinopril 5 mg tablet 5 mg PO DAILY pregabalin 75 mg capsule 75 mg PO BID albuterol sulfate 2.5 mg /3 mL (0.083 %) solution for nebulization 1.25 mg inhalation Q6H PRN (Reason: shortness of breath or wheezing) dorzolamide-timolol (PF) 2-0.5 % dropperette 1 drp ophthalmic (eye) BID Rx Instructions: INSTILL 1 DROP INTO BOTH EYES TWICE DAILY duloxetine [Cymbalta] 30 mg capsule,delayed release(DR/EC) 60 mg PO DAILY mineral oil [Fleet Mineral Oil] Enema 118 ml [place] DAILY PRN (Reason: constipation) Rx Instructions: ADMINISTER ONCE DAILY IF NO BM AFTER RECIEVING SUPPOSITORY. IF NO BM WITHIN 1 HOUR AFTER RECIEVING ENEMA, NOTIFY MD. meloxicam 7.5 mg tablet 7.5 mg PO DAILY magnesium hydroxide [Milk of Magnesia] 400 mg/5 mL suspension 30 ml PO DAILY PRN (Reason: constipation) Rx Instructions: ADMINISTER IF NO BM IN 3 CONSECUTIVE DAYS guaifenesin [Mucinex] 600 mg tablet extended release 12hr 600 mg PO Q12H PRN (Reason: congestion) polyethylene glycol 3350 [ClearLax] 17 gram/dose powder 17 g PO DAILY PRN (Reason: constipation) Lubricant Eye (PG-PEG 400) 0.4-0.3 % drops 1 drp EACH EYE TID PRN (Reason: dry eye(s)) benzonatate 100 mg capsule 100 mg PO Q8H PRN (Reason: cough) Verzenio 50 mg tablet 50 mg PO BID tetrahydrozoline [Eye Drops (tetrahydrozoline)] 0.05 % drops 1 drp EACH EYE Q2H PRN (Reason: dry eyes) ondansetron HCl 4 mg tablet 4 mg PO Q6H PRN (Reason: nausea and vomiting) lorazepam 0.5 MG tablet 0.25 mg PO Q12H PRN (Reason: Anxiety) Referrals / Follow Up: Floridalma Torres MD [Primary Care Provider] - Within 1 Week Disposition Disposition (needs filled in before D/C Order can be placed): Assisted Facility
--- NOTE | 2024-01-27 13:09 | NURSING ---
I left a v.m. for pt's family member Elizabeth to call the unit to inform her of the pt's d/c and pickup time of 1430.
[2024-01-27] MEDS: ABEMACICLIB 50 MG PO (13:45)
[2024-01-27] MEDS: Metoprolol Tartrate 50 MG Tablet PO (13:46)
[2024-01-27] MEDS: Aspirin 81 MG TAB.CHEW PO (13:46)
[2024-01-27] MEDS: DULoxetine Hcl 60 MG Capsule PO (13:46)
[2024-01-27] MEDS: Lisinopril 5 MG Tablet PO (13:47)
[2024-01-27] MEDS: Meloxicam 7.5 MG Tablet PO (13:47)
[2024-01-27] MEDS: Pregabalin 75 MG Capsule PO (13:48)
--- NOTE | 2024-01-27 14:14 | NURSING ---
Report given to [facility], patient to be picked up by physicians at 1230. Patient took all PO medications except for PO Augmentin, refused all ophthalmic medications .
== END 2024-01-27 15:34 | disposition skilled nursing facility (03) | DRG 177 ==
LOC: ED 12:31 → PCU 12:40
PROVIDERS: Admitting Provider Student in an Organized Health Care Education/Training Program; Emergency Provider Emergency Medicine; PCP Internal Medicine; Visit Provider Student in an Organized Health Care Education/Training Program
DX: J69.0 Pneumonitis due to inhalation of food and vomit (principal); J96.01 Acute respiratory failure with hypoxia; N17.9 Acute kidney failure, unspecified; J90 Pleural effusion, not elsewhere classified; I10 Essential (primary) hypertension; E03.9 Hypothyroidism, unspecified; E86.0 Dehydration; Z87.891 Personal history of nicotine dependence; Z90.12 Acquired absence of left breast and nipple; R03.1 Nonspecific low blood-pressure reading; Z85.3 Personal history of malignant neoplasm of breast
CPT/HCPCS: 36415; 36600; 51702; 70450; 71045; 73030; 73060; 73080; 73100; 73120; 73590; 80048; 80053; 81001; 82803; 83605; 85025; 85610; 85730; 87040; 87086; 87088; 87449; 92526; 92610; 93005; 94640; 94762; 97162; 97166; 97530; 99252; 99285; J7030; J7040; J7050; A4216; G0463

== ENCOUNTER 2024-04-07 00:55 | Emergency (ER) | payer MEDICARE, MEDICAID, SELFPAY ==
[2024-04-07] VITALS (15 sets, daily range): BP systolic 59–104; BP diastolic 30–73; PULSE 81–97; RESP 16–25; TEMP 36.5–36.7; O2SAT 92–94; BMI 27.1
--- NOTE | 2024-04-07 01:35 | EKG12_ITS ---
Test Reason : DYSRHYTHMIA Blood Pressure : / mmHG Vent. Rate : 081 BPM Atrial Rate : 081 BPM P-R Int : 156 ms QRS Dur : 092 ms QT Int : 370 ms P-R-T Axes : 051 -18 042 degrees QTc Int : 429 ms Normal sinus rhythm Incomplete right bundle branch block Borderline ECG Confirmed by Srinivas Mcpherson ([id number]), newspaper copy editor RICHARD HUBER ([id number]) on 04/08/2024 11:46:32 AM Referred By: Confirmed By:Srinivas Mcpherson
--- NOTE | 2024-04-07 01:37 | RAD_ITS ---
INDICATION: hematemesis, epigast pain EXAMINATION/TECHNIQUE: X-RAY - XR Chest 1 View COMPARISON: 01/24/2024 chest radiograph. Findings: Single frontal view of the chest. Low lung volumes. Patient is rotated. LUNG PARENCHYMA/PLEURA: Dense left lung base retrocardiac airspace disease. Associated small left pleural effusion. No pneumothorax. HEART/GREAT VESSELS: Cardiomediastinal silhouette is unremarkable. BONES: Old right posterior rib fracture deformities. Left axillary surgical clips. RAD/Chest 1 View (Portable) IMPRESSION: Dense left lung base retrocardiac airspace disease, to include pneumonia. Associated small left pleural effusion. Recommend follow-up to resolution as neoplastic process is not excluded. Electronically Signed: Storm Paulino MD at 3:17 EDT ,
--- NOTE | 2024-04-07 01:37 | ED.VIS.GI ---
HPI HPI - GI History of Present Illness Chief Complaint: GI Bleed Informant: patient, EMS and SNF Narrative Narrative: 83-year-old female apparently started vomiting coffee-ground emesis tonight, becoming hypotensive, and [facility] She takes baby aspirin in addition to other medications no anticoagulants or other antiplatelets. She denies having abdominal pain or diarrhea or melena. She denies seeing any bright red blood. She denies chest pain or shortness of breath. She is feeling weak all over she denies syncope. [facility] Medical History History of behavioral and mental health problems Glaucoma History of TIAs Secondary malignant neoplasm of brain History of breast cancer PAF (paroxysmal atrial fibrillation) Hypothyroidism History of pericardial effusion History of viral pericarditis Home Medications ?Medication ?Instructions ?Recorded ?Last Taken ?Type metoprolol tartrate 50 mg tablet 50 mg PO BIDCM HEART 07/14/13 03/28/22 History acetaminophen 500 mg tablet 1,000 mg PO TID PRN Pain 08/12/18 03/28/22 History levothyroxine 100 mcg tablet 100 mcg PO DAILY thyroid 08/12/18 03/28/22 04:00 History latanoprost 0.005 % eye drops 1 drp EACH EYE QHS eye 11/24/19 03/27/22 20:30 History abemaciclib 50 mg tablet (Verzenio) 50 mg PO BID CANCER TREATMENT 01/24/24 Unknown History albuterol sulfate 2.5 mg/3 mL 1.25 mg inhalation Q6H PRN 01/24/24 Unknown History (0.083 %) solution for nebulization shortness of breath or wheezing aspirin 81 mg capsule 81 mg PO DAILY 01/24/24 Unknown History benzonatate 100 mg capsule 100 mg PO Q8H PRN cough 01/24/24 Unknown History dorzolamide-timolol (PF) 2 %-0.5 % 1 drp ophthalmic (eye) BID 01/24/24 Unknown History eye drops in a dropperette duloxetine 30 mg capsule,delayed 60 mg PO DAILY 01/24/24 Unknown History release (Cymbalta) guaifenesin 600 mg tablet, 600 mg PO Q12H PRN congestion 01/24/24 Unknown History extended release 12 hr (Mucinex) magnesium hydroxide 400 mg/5 mL 30 ml PO DAILY PRN constipation 01/24/24 Unknown History oral suspension (Milk of Magnesia) meloxicam 7.5 mg tablet 7.5 mg PO DAILY 01/24/24 Unknown History mineral oil (Fleet Mineral Oil 118 ml [place] DAILY PRN constipation 01/24/24 Unknown History enema) ondansetron HCl 4 mg tablet 4 mg PO Q6H PRN nausea and vomiting 01/24/24 Unknown History peg 400-propylene glycol 0.4 %-0.3 1 drp EACH EYE TID PRN dry eye(s) 01/24/24 Unknown History % eye drops (Lubricant Eye (PG-PEG 400)) polyethylene glycol 3350 17 17 g PO DAILY PRN constipation 01/24/24 Unknown History gram/dose oral powder (ClearLax) pregabalin 75 mg capsule 75 mg PO BID 01/24/24 Unknown History tetrahydrozoline 0.05 % eye drops 1 drp EACH EYE Q2H PRN dry eyes 01/24/24 Unknown History (Eye Drops (tetrahydrozoline)) Allergy/AdvReac Type Severity Reaction Status Date / Time shellfish derived Allergy Hives Verified 04/07/24 00:56 tetracycline (Tetracycline) Allergy pt unsure Verified 04/07/24 00:56 alcohol AdvReac Unknown Verified 04/07/24 00:56 promethazine (From Phenergan) AdvReac Other Verified 04/07/24 00:56 Family History Father Diabetes Hypertension CVA (cerebral vascular accident) Sister Asthma Diabetes Hypertension Arthritis Osteoporosis Lung disease Surgical History Status post gamma knife treatment History of modified radical mastectomy of left breast S/P breast biopsy S/P pericardial surgery Social History Smoking Status: Former smoker second hand exposure: No alcohol intake: never substance use type: does not use what type of physical activity do you participate in: none frequency: does not exercise seatbelt use: always ROS ROS ED Constitutional Constitutional ED: Reports weakness; Denies chills or fever(s) Eyes Eyes: Denies change in vision or diplopia ENT ENT ED: Denies rhinorrhea or sore throat Cardiovascular Cardiovascular: Denies chest pain or palpitations Respiratory/Chest Respiratory/Chest: Denies cough or dyspnea Gastrointestinal Gastrointestinal: Reports as per HPI, nausea and vomiting; Denies abdominal pain, diarrhea, hematochezia or melena Genitourinary Genitourinary ED: Denies dysuria or hematuria Musculoskeletal Musculoskeletal: Denies back pain or neck pain Integumentary Denies abscess or rash Neurologic Neurologic: Denies headache(s), paresthesias or weakness EXAM Physical Exam Const Vital Signs: 04/07/24 00:56 04/07/24 01:00 04/07/24 01:15 Temperature 97.7 F L Temperature Source Oral Pulse Rate 97 94 93 Respiratory Rate 16 25 H 16 Blood Pressure 63/52 L 59/47 L 95/30 L Blood Pressure Mean 55 51 51 Blood Pressure Source Blood Pressure Position Blood Pressure Location Pulse Ox 94 94 94 Oxygen Delivery Method Nasal Cannula Nasal Cannula Nasal Cannula Oxygen Flow Rate (L/min) 2 4 04/07/24 01:30 04/07/24 01:45 04/07/24 02:00 Temperature Temperature Source Pulse Rate 86 82 83 Respiratory Rate 17 17 20 H Blood Pressure 86/41 L 100/51 L 104/59 L Blood Pressure Mean 56 67 74 Blood Pressure Source Blood Pressure Position Blood Pressure Location Pulse Ox 94 93 92 Oxygen Delivery Method Nasal Cannula Nasal Cannula Nasal Cannula Oxygen Flow Rate (L/min) 4 4 4 04/07/24 02:30 04/07/24 02:45 04/07/24 04:00 Temperature Temperature Source Pulse Rate 84 81 87 Respiratory Rate 20 H 21 H 18 Blood Pressure 74/38 L 87/31 L 96/37 L Blood Pressure Mean 50 49 56 Blood Pressure Source Blood Pressure Position Blood Pressure Location Pulse Ox 94 93 Oxygen Delivery Method Nasal Cannula Nasal Cannula Nasal Cannula Oxygen Flow Rate (L/min) 4 4 4 04/07/24 04:33 04/07/24 04:48 Temperature 98.1 F 97.9 F Temperature Source Oral Oral Pulse Rate 86 85 Respiratory Rate 16 18 Blood Pressure 65/47 L 81/35 L Blood Pressure Mean 53 50 Blood Pressure Source Monitor Monitor Blood Pressure Position Semi-Fowlers Semi-Fowlers Blood Pressure Location Right Arm Right Arm Pulse Ox 92 94 Oxygen Delivery Method Nasal Cannula Nasal Cannula Oxygen Flow Rate (L/min) 4 4 Positive well nourished and well developed General Appearance ED: well developed, NAD and pallor HEENT Reports moist mucous membranes normocephalic and atraumatic Eyes PERRL and EOMs intact bilaterally Neck full ROM and supple Resp normal respiratory effort and clear to auscultation bilaterally Cardio regular rate and regular rhythm Heart Sounds: murmur systolic II/ left sternal border Peripheral Pulses: pulses 2+ throughout GI non-distended GI Narrative: Epigastric and left upper quadrant tenderness. No guarding or rebound. No pulsatile mass. Auscultation: normoactive bowel sounds Palpation: soft Narrative: Hard stool present in rectum, nontender, light brown stool no melena or blood. Otherwise normal inspection. Back/Spine no CVA tenderness General Back: other FROM Extremity normal to inspection General Extremety ED: Negative for edema, pulses abnormal or tenderness General Extremity: Negative for edema or pulses abnormal Neuro oriented x3, CN's II-XII intact bilaterally and no sensory deficits noted Neuro Narrative: Lethargic. Alerts to voice. Converses partially but falls asleep easily. Notable that patient is seen at 1:30 AM. Sensorium / Orientation: awake and alert Motor Exam: general weakness Skin no rashes or lesions noted and no wounds General Skin Exam: pallor; Negative for jaundice MDM MDM MDM Narrative Medical decision making narrative: Sent the rectal specimen for Hemoccult it is negative, confirming that if she has an acute upper GI bleed, this is all acute. Hypotension is concerning, 2 IVs were placed and she was bolused with 2L despite the national shortage of IV fluids. Her BUN is significantly elevated, her creatinine is higher than normal, but this is consistent so far with upper GI bleed. 1 view chest x-ray obtained in order to evaluate for free air due to peptic ulcer perforation that may or may not be causing the bleeding, on my interpretation there is no free air, and she does have significant improvement of the prior left lower lobe infiltrate versus mass when compared with her old film in January. Hemoglobin returned 6.8, significant drop compared with 3 weeks ago when she was at 8.5. All consistent with acute upper GI bleed and hemorrhagic shock. Before the end of the first liter she has a systolic blood pressure of 87. Just after the end of the first liter, her systolic blood pressure is 100. Patient consents to getting a blood transfusion which is emergently indicated, typed and crossed for unit to also give emergently in addition to the fluids and IV pantoprazole, for which a drip was also ordered. We do not have GI on-call tonight, discussed with the surgery DrAlondra Molina. She states given the acuity of this patient, we do not have the capacity to admit her without gastroenterology, and therefore recommends transfer. We did attempt to page GI doctor friend, although he is not on-call, and there was no answer; it is 3 AM. It is noted that the patient has a PCP in the [facility] system, she is okay with their system. [facility] has available bed; discussed w/ their CIPHER EXPERT and Gastroenterology; they accept the pt to the ICU under Dr. Donovan's service. After the second liter, the patient's pressure did drop back down to 81/35 so we started a 3rd liter and at that time the blood was being given as well. On reexamination her blood pressure is 108 systolic. Airway and breathing are stable. I think reasonable with the pantoprazole and blood and fluids going, to send her by ground I do not think she needs an emergency helicopter at this time. Of note, she does have mild hyperkalemia probably a result of her AIDAN. There are no EKG changes from this, since we are resuscitating her with IV fluids, I suspect on repeat this will be lower as opposed to higher, so I do not think we need to treat her potassium emergently other than giving her the IV fluids. Lab Data Attestation: I reviewed the patient's lab results. Labs: Laboratory Results - last 24 hr 04/07/24 01:00 WBC 6.6 RBC 2.07 L Hgb 6.8 L Hct 22.1 L MCV 106.8 H MCH 32.9 H MCHC 30.8 L RDW Std Deviation 56.8 H RDW Coeff of Natalie 14.6 Plt Count 213 MPV 10.9 Immature Gran % (Auto) 0.800 Neut % (Auto) 80.2 H Lymph % (Auto) 13.1 L [place] % (Auto) 5.3 Eos % (Auto) 0.3 Baso % (Auto) 0.3 Absolute Neuts (auto) 5.3 Absolute Lymphs (auto) 0.87 Nucleated RBC % 0 Differential Comment SCANNED Sodium 142 Potassium 5.3 H Chloride 105 Carbon Dioxide 30.0 Anion Gap 7 BUN 58 H Creatinine 1.98 H Estim Creat Clear Calc 21.26 Est GFR (MDRD) Af Amer 31 L Est GFR (MDRD) Non-Af 26 L BUN/Creatinine Ratio 29.3 H Glucose 120 H Calcium 9.9 Total Bilirubin 0.70 AST 46 H ALT 18 Alkaline Phosphatase 442 H Troponin I High Sens 27 Total Protein 5.7 L Albumin 2.6 L Globulin 3.1 Albumin/Globulin Ratio 0.8 L Lipase 45 Blood Type O POSITIVE Antibody Screen NEGATIVE Crossmatch See Detail Radiography Diagnostic Testing: Clinical Impression(s) from Imaging Studies Chest X-Ray 04/07/24 01:37 IMPRESSION: Dense left lung base retrocardiac airspace disease, to include pneumonia. Associated small left pleural effusion. Recommend follow-up to resolution as neoplastic process is not excluded. Electronically Signed: Storm Paulino MD at 3:17 EDT , Rhythm Strip Rhythm Strip: Sinus Rhythm Rate: 80 Ectopy: None EKG Initial EKG: Attestation: I personally reviewed and interpreted this EKG as follows: Interpretation: Sinus Rhythm and No Acute Injury Pattern Comments: V1-2 RSR', narrow QRS Management Discussion w/another healthcare provider: Physician In Private Practice (Surgery Dr. Molina) Critical Care Time Critical Care Time: Yes Critical care time (excluding procedures): 30-74 minutes (48 min), Including time spent:, Discussing w/Patient &/or Family/Lace Roller Operator, Discussing w/Consultants, Arranging Admission or Transfer and Performing Direct Patient Care at Bedside Discharge Plan Triage Chief Complaint: GI Bleed ED Provider: Jimmie Case Dx/Rx/DC Orders Clinical Impression: ABLA (acute blood loss anemia), Acute upper gastrointestinal hemorrhage, Hemorrhagic shock, AIDAN (acute kidney injury), Hyperkalemia, diminished renal excretion Prescriptions: No Action metoprolol tartrate 50 MG tablet 50 mg PO BIDCM Rx Instructions: HOLD IF SBP < 100 OR DBP < 60 acetaminophen 500 MG tablet 1,000 mg PO TID PRN (Reason: Pain) Rx Instructions: DO NOT EXCEED 4GM IN 24 HOURS levothyroxine 100 MCG tablet 100 mcg PO DAILY latanoprost 1 DROP bottle 1 drp EACH EYE QHS aspirin 81 mg capsule 81 mg PO DAILY pregabalin 75 mg capsule 75 mg PO BID albuterol sulfate 2.5 mg /3 mL (0.083 %) solution for nebulization 1.25 mg inhalation Q6H PRN (Reason: shortness of breath or wheezing) dorzolamide-timolol (PF) 2-0.5 % dropperette 1 drp ophthalmic (eye) BID Rx Instructions: INSTILL 1 DROP INTO BOTH EYES TWICE DAILY duloxetine [Cymbalta] 30 mg capsule,delayed release(DR/EC) 60 mg PO DAILY mineral oil [Fleet Mineral Oil] Enema 118 ml [place] DAILY PRN (Reason: constipation) Rx Instructions: ADMINISTER ONCE DAILY IF NO BM AFTER RECIEVING SUPPOSITORY. IF NO BM WITHIN 1 HOUR AFTER RECIEVING ENEMA, NOTIFY MD. meloxicam 7.5 mg tablet 7.5 mg PO DAILY magnesium hydroxide [Milk of Magnesia] 400 mg/5 mL suspension 30 ml PO DAILY PRN (Reason: constipation) Rx Instructions: ADMINISTER IF NO BM IN 3 CONSECUTIVE DAYS guaifenesin [Mucinex] 600 mg tablet extended release 12hr 600 mg PO Q12H PRN (Reason: congestion) polyethylene glycol 3350 [ClearLax] 17 gram/dose powder 17 g PO DAILY PRN (Reason: constipation) Lubricant Eye (PG-PEG 400) 0.4-0.3 % drops 1 drp EACH EYE TID PRN (Reason: dry eye(s)) benzonatate 100 mg capsule 100 mg PO Q8H PRN (Reason: cough) Verzenio 50 mg tablet 50 mg PO BID tetrahydrozoline [Eye Drops (tetrahydrozoline)] 0.05 % drops 1 drp EACH EYE Q2H PRN (Reason: dry eyes) ondansetron HCl 4 mg tablet 4 mg PO Q6H PRN (Reason: nausea and vomiting) Primary Care Provider: Ky Butler Referrals: Floridalma Torres MD [Med Staff - Handbag Finisher] - Print Language: Faroese Disposition Disposition: Acute Care Hospital
[2024-04-07 01:45] LABS: Absolute Lymphocyte Count 0.87 X10^3/uL (0.83-4.51); Absolute Neutrophil Count 5.3 X10^3/uL (2.0-7.7); Basophil# 0.02 X10^3/uL; Basophil% 0.3 % (0-1); Eosinophil# 0.02 X10^3/uL; Eosinophils% 0.3 % (0-5); Hematocrit 22.1 % (37-47); Hemoglobin 6.8 g/dL (12.0-15.0); Lymphocyte # 0.87 X10^3/ul (0.83-4.51); Lymphocyte % 13.1 % (19-41); Mean Corp Hgb Conc 30.8 g/dL (32-36); Mean Corpuscular Hgb 32.9 pg (27.0-32.0); Mean Corpuscular Volume 106.8 fL (81-99); Mean Platelet Vol. 10.9 fl (6.2-12.0); Monocyte# 0.35 X10^3/uL; Monocyte% 5.3 % (0-10); NRBC Flagged by Analyzer 0 % (0-5); Neutrophil # 5.31 X10^3/uL (2.7-7.7); Neutrophil % 80.2 % (47-70); POSITIVE MORPHOLOGY YES; Platelet Count 213 K/mm3 (150-450); RBC Distribution Width CV 14.6 % (11.6-14.6); RBC Distribution Width SD 56.8 fl (35.1-43.9); Red Blood Count 2.07 M/mm3 (4.2-5.4); White Blood Count 6.6 K/mm3 (4.4-11.0)
[2024-04-07] MEDS: Ondansetron 4 MG/2 ML Vial IV (01:46)
[2024-04-07] MEDS: 0.9% Normal Saline (1000mL) 1,000 ML 999 ML IV ×3 (01:46→05:07)
[2024-04-07] MEDS: Pantoprazole Sodium 80 MG in 0.9% Normal Saline (50mL Bag) 15 ML 420 MG IV BOLUS (01:55)
[2024-04-07 02:09] LABS: ALB/GLOB Ratio 0.8 RATIO (0.9-2.4); AST(SGOT) 46 U/L (15-37); Alanine Aminotransfer ALT/SGPT 18 U/L (13-56); Albumin, Serum 2.6 g/dL (3.2-5.0); Alkaline Phosphatase 442 U/L (45-117); Anion Gap 7 (5-15); BUN 58 mg/dL (7-18); BUN/Creat Ratio 29.3 RATIO (10-20); Calcium,Total 9.9 mg/dL (8.5-10.1); Chloride 105 mmol/L (98-107); Creatinine, Serum 1.98 mg/dL (0.55-1.02); EST Glomerular Filtration Rate 26 mL/min (>60); Est Glom Filt Rate - Afr Amer 31 mL/min (>60); Estimated Creatinine Clearance 21.26 ml/min; Globulin 3.1 g/dL (2.2-4.2); Glucose 120 mg/dL (74-106); Lipase 45 U/L (13-75); Potassium 5.3 mmol/L (3.5-5.1); Protein, Total 5.7 g/dL (6.4-8.2); Sodium Level 142 mmol/L (136-145); Troponin-I HS 27 pg/mL (3.0-54.0)
[2024-04-07 02:40] LABS: Differential Comment SCANNED; Differential Indicated SCAN CRITERIA MET
[2024-04-07] MEDS: Pantoprazole Sodium 80 MG in 0.9% Normal Saline (100mL Bag) 80 ML 10 MG CONT INF (03:10)
--- NOTE | 2024-04-07 03:51 | ED.RN ---
This RN at bedside with MD to explain the need and importance of a blood transfusion, and to answer any questions from the patient. The patient signed blood administration paper to the best of her ability. Verbal consent obtained witnessed by this RN and Giorgio Wagner RN.
--- NOTE | 2024-04-07 05:01 | ED.RN ---
PHYSICIANS GAVE AN ETA OF 0700. THEY ATTEMPTED [facility], [facility], AND [facility]. ALL WERE UNAVAILABLE TO HELP
== END 2024-04-07 07:04 | disposition short-term general hospital (02) ==
PROVIDERS: Emergency Provider Emergency Medicine; PCP Family Medicine; Visit Provider Emergency Medicine
DX: D62 Acute posthemorrhagic anemia (principal); R57.8 Other shock; N17.9 Acute kidney failure, unspecified; K92.2 Gastrointestinal hemorrhage, unspecified; E87.5 Hyperkalemia; Z79.51 Long term (current) use of inhaled steroids; Z79.82 Long term (current) use of aspirin; Z79.899 Other long term (current) drug therapy; Z86.73 Personal history of transient ischemic attack (TIA), and cerebral infarction without residual deficits; Z87.891 Personal history of nicotine dependence
CPT/HCPCS: 36430; 71045; 80053; 82274; 83690; 84484; 85025; 86850; 86900; 86901; 86922; 93005; 96365; 96366; 96375; 96376; 99284; J7030; J7040; P9016; A4216; J2405; J3490